=== PATIENT | female | born 1975 | race African-American/Black ===

== ENCOUNTER 2018-06-04 13:12 | Emergency (ER) | payer OTHER ==
--- NOTE | 2018-06-04 14:08 | ER ---
Nurse's Notes [facility] Name: Tianna Costello Age: 43 yrs Sex: Female : 1975 Arrival Date: 06/04/2018 Time: 13:14 Bed 20 Private MD: Diagnosis: Acute upper respiratory infection, unspecified Presentation: 06/04 13:16 Presenting complaint: Patient states: I have been having chills, scratchy throat, and la1 dry lips for the last few days. Transition of care: patient was not received from another setting of care. Onset of symptoms was June 04, 2018. Risk Assessment: Do you want to hurt yourself or someone else? Patient reports no desire to harm self or others. Initial Sepsis Screen: Does the patient meet any 2 criteria? No. Patient's initial sepsis screen is negative. Does the patient have a suspected source of infection? No. Patient's initial sepsis screen is negative. Care prior to arrival: None. 13:16 Method Of Arrival: Ambulatory la1 13:16 Acuity: DAVID 4 la1 Triage Assessment: 14:00 General: Appears in no apparent distress. comfortable, Behavior is calm, cooperative, bp appropriate for age. Historical: - Allergies: 13:17 PENICILLINS; la1 - Home Meds: 13:21 alprazolam 0.25 mg Oral tab [Active]; tw2 - PMHx: 13:17 Anxiety; Asthma; la1 - PSHx: 13:21 None; tw2 - Immunization history:: Adult Immunizations up to date. - Social history:: Smoking status: Patient/guardian denies using tobacco. - Ebola Screening: : No symptoms or risks identified at this time. Screenin:19 Abuse screen: Denies threats or abuse. Nutritional screening: No deficits noted. tw2 Tuberculosis screening: No symptoms or risk factors identified. Fall Risk None identified. Assessment: 13:19 General: Appears in no apparent distress. Behavior is calm, cooperative, appropriate tw2 for age. Pain: Complains of pain in "scratchy throat". Neuro: Level of Consciousness is awake, alert, obeys commands, Oriented to person, place, time, situation. Cardiovascular: Denies chest pain, shortness of breath, Patient's skin is warm and dry. Cardiovascular:. Respiratory: Airway is patent Respiratory effort is even, unlabored, Respiratory pattern is regular, symmetrical. GI: No signs and/or symptoms were reported involving the gastrointestinal system. : No signs and/or symptoms were reported regarding the genitourinary system. EENT: Reports pain in throat. Derm: No signs and/or symptoms reported regarding the dermatologic system. Musculoskeletal: Range of motion: intact in all extremities. 13:21 Reassessment: provider NERY Chatterjee at bedside at this time. tw2 14:13 Reassessment: PT D/C BUT LEFT WITHOUT PAPERS. bp Vital Signs: 13:17 BP 112 / 89; Pulse 78; Resp 18; Temp 98.3(O); Pulse Ox 98% on R/A; Weight 78.02 kg; la1 Height 5 ft. 6 in. (167.64 cm); 13:17 Body Mass Index 27.76 (78.02 kg, 167.64 cm) la1 ED Course: 13:14 Patient arrived in ED. as 13:16 Triage completed. la1 13:17 Arm band placed on right wrist. la1 13:19 Bed in low position. Call light in reach. tw2 13:20 [facility] kb 13:20 Francisco J Suarez MD is Attending Physician. kb 13:37 Strep Sent. tw2 13:37 Flu Sent. tw2 14:00 Owen Underwood, RN is Primary Nurse. bp 14:14 No provider procedures requiring assistance completed. Patient did not have IV access bp during this emergency room visit. Administered Medications: No medications were administered Outcome: 14:08 Discharge ordered by . kb 14:14 Discharged to home ambulatory. bp 14:14 Condition: stable 14:15 Patient left the ED. bp Signatures: Lenore Mora FNP-C FNP-Lupis Coyne Lee RN RN la1 Esha Crisostomo RN RN tw2 Owen Underwood RN RN bp
--- NOTE | 2018-06-04 14:08 | EDPHYS ---
Physician Documentation [facility] Name: Tianna Costello Age: 43 yrs Sex: Female : 1975 Arrival Date: 06/04/2018 Time: 13:14 Bed 20 Private MD: ED Physician Francisco J Suarez HPI: 06/04 14:05 This 43 yrs old Black Female presents to ER via Ambulatory with complaints of Fever. kb 14:05 The patient or guardian reports flu symptoms. Onset: The symptoms/episode kb began/occurred 3 day(s) ago. Severity of symptoms: At their worst the symptoms were mild, in the emergency department the symptoms are unchanged. Modifying factors: The symptoms are alleviated by nothing, the symptoms are aggravated by nothing. Associated signs and symptoms: Pertinent positives: rhinorrhea, sore throat, chills, cracked lips. The patient has not experienced similar symptoms in the past. The patient has not recently seen a physician. Historical: - Allergies: 13:17 PENICILLINS; la1 - Home Meds: 13:21 alprazolam 0.25 mg Oral tab [Active]; tw2 - PMHx: 13:17 Anxiety; Asthma; la1 - PSHx: 13:21 None; tw2 - Immunization history:: Adult Immunizations up to date. - Social history:: Smoking status: Patient/guardian denies using tobacco. - Ebola Screening: : No symptoms or risks identified at this time. ROS: 14:04 ENT: Negative for injury, pain, and discharge, Neck: Negative for injury, pain, and kb swelling, Cardiovascular: Negative for chest pain, palpitations, and edema, Abdomen/GI: Negative for abdominal pain, nausea, vomiting, diarrhea, and constipation, Back: Negative for injury and pain, : Negative for injury, bleeding, discharge, and swelling, MS/Extremity: Negative for injury and deformity, Skin: Negative for injury, rash, and discoloration, Neuro: Negative for headache, weakness, numbness, tingling, and seizure. 14:04 Constitutional: Positive for chills, Negative for body aches, fatigue, malaise, poor PO intake, weight loss. 14:04 Respiratory: Positive for cough, Negative for dyspnea on exertion, hemoptysis, orthopnea, pleurisy, shortness of breath, sputum production, wheezing. Exam: 14:04 Constitutional: This is a well developed, well nourished patient who is awake, alert, kb and in no acute distress. Head/Face: Normocephalic, atraumatic. ENT: Nares patent. No nasal discharge, no septal abnormalities noted. Tympanic membranes are normal and external auditory canals are clear. Oropharynx with no redness, swelling, or masses, exudates, or evidence of obstruction, uvula midline. Mucous membranes moist. Neck: Trachea midline, no thyromegaly or masses palpated, and no cervical lymphadenopathy. Supple, full range of motion without nuchal rigidity, or vertebral point tenderness. No Meningismus. Chest/axilla: Normal chest wall appearance and motion. Nontender with no deformity. No lesions are appreciated. Cardiovascular: Regular rate and rhythm with a normal S1 and S2. No gallops, murmurs, or rubs. Normal PMI, no JVD. No pulse deficits. Respiratory: Lungs have equal breath sounds bilaterally, clear to auscultation and percussion. No rales, rhonchi or wheezes noted. No increased work of breathing, no retractions or nasal flaring. Abdomen/GI: Soft, non-tender, with normal bowel sounds. No distension or tympany. No guarding or rebound. No evidence of tenderness throughout. Skin: Warm, dry with normal turgor. Normal color with no rashes, no lesions, and no evidence of cellulitis. MS/ Extremity: Pulses equal, no cyanosis. Neurovascular intact. Full, normal range of motion. Neuro: Awake and alert, GCS 15, oriented to person, place, time, and situation. Cranial nerves II-XII grossly intact. Motor strength 5/5 in all extremities. Sensory grossly intact. Cerebellar exam normal. Normal gait. Vital Signs: 13:17 BP 112 / 89; Pulse 78; Resp 18; Temp 98.3(O); Pulse Ox 98% on R/A; Weight 78.02 kg; la1 Height 5 ft. 6 in. (167.64 cm); 13:17 Body Mass Index 27.76 (78.02 kg, 167.64 cm) la1 MDM: 13:20 Patient medically screened. kb 14:03 Data reviewed: vital signs, nurses notes. Data interpreted: Pulse oximetry: on room air kb is 98 %. Interpretation: normal. 14:06 ED course: Pt reports she needs to leave to pickup her grandkids. States "Can I just kb call for my results?" Educated that she can get her results from medical records tomorrow, but we are unable to give her results over the phone. . 06/04 13:23 Order name: Flu; Complete Time: 14:07 kb 06/04 13:23 Order name: Strep; Complete Time: 14:07 kb 06/04 14:07 Order name: Throat Culture EDMS Administered Medications: No medications were administered Disposition: 18:42 Co-signature as Attending Physician, Francisco J Suarez MD available for consultation at ps1 all times. Disposition: 06/04/18 14:08 Discharged to Home. Impression: Acute upper respiratory infection, unspecified. - Condition is Stable. - Discharge Instructions: Upper Respiratory Infection, Adult, [id number], Viral Respiratory Infection, [id number]. - Medication Reconciliation Form, Thank You Letter, Antibiotic Education, Prescription Opioid Use, Work release form form. - Follow up: Emergency Department; When: As needed; Reason: Worsening of condition. Follow up: Private Physician; When: 2 - 3 days; Reason: Recheck today's complaints, Continuance of care, Re-evaluation by your physician. Signatures: Dispatcher [employer] EDMS Lenore Mora, NERY-C UNATTENDED GROUND SENSOR SPECIALIST-Todd Gandhi, RN RN la1 Esha Crisostomo, RN RN tw2 Owen Underwood, RN RN Francisco J Titus MD MD ps1 Corrections: (The following items were deleted from the chart) 14:06 14:04 Constitutional: Positive for chills, fever, Negative for body aches, fatigue, kb malaise, poor PO intake, weight loss, kb 14:15 14:08 06/04/2018 14:08 Discharged to Home. Impression: Acute upper respiratory bp infection, unspecified. Condition is Stable. Forms are Work release form, Medication Reconciliation Form, Thank You Letter, Antibiotic Education, Prescription Opioid Use. Follow up: Emergency Department; When: As needed; Reason: Worsening of condition. Follow up: Private Physician; When: 2 - 3 days; Reason: Recheck today's complaints, Continuance of care, Re-evaluation by your physician. kb
== END 2018-06-04 14:15 | disposition home or self-care (01) ==
LOC: ER 13:12
DX: J06.9 Acute upper respiratory infection, unspecified (principal); F41.9 Anxiety disorder, unspecified; Z88.0 Allergy status to penicillin
CPT/HCPCS: 87070; 87081; 87804; 99282

== ENCOUNTER 2018-10-12 19:06 | Emergency (ER) | payer OTHER ==
--- OUTSIDE RECORDS SUMMARY | 2018-10-12 19:09 | XMS REPORT ---
:1975 [facility] Address [address] [place] [address] [address] [place] [address] Care Team Providers Name Role Phone Unavailable Unavailable Unavailable Problems This patient has no known problems. Allergies, Adverse Reactions, Alerts This patient has no known allergies or adverse reactions. Medications This patient has no known medications.
[2018-10-12] MEDS ORDERED: ALBUTEROL 2.5 MG/3 ML NEB SOL ONE (20:15)
[2018-10-12] MEDS ORDERED: IPRATROPIUM BROM 0.5MG/2.5ML ONE (20:16)
[2018-10-12] MEDS ORDERED: predniSONE 20 MG TAB ONE (20:16)
--- NOTE | 2018-10-12 20:39 | RAD REPORT ---
EXAM DESCRIPTION: Cleo Palacios (2 Views)10/12/2018 8:00 pm CLINICAL HISTORY: Cough COMPARISON: 2017 FINDINGS: The lungs appear clear of acute infiltrate. The heart is normal size IMPRESSION: No acute abnormalities displayed
[2018-10-12 21:00] LABS: Urine Blood NEGATIVE (NEG); Urine Glucose NEGATIVE (NEG); Urine Protein TRACE (NEG)
--- NOTE | 2018-10-12 21:04 | EDPHYS ---
Physician Documentation [facility] Name: Tianna Costello Age: 43 yrs Sex: Female : 1975 Arrival Date: 10/12/2018 Time: 19:09 Bed 5 Private MD: ED Physician Cory Park HPI: 10/12 19:35 This 43 yrs old Black Female presents to ER via Ambulatory with complaints of Flu cp Symptoms. 19:35 The patient or guardian reports cough, that is intermittent, with productive sputum, cp that is yellow. 19:35 Onset: The symptoms/episode began/occurred 1 week(s) ago. Associated signs and cp symptoms: Pertinent positives: sore throat, Pertinent negatives: fever, vomiting. Severity of symptoms: in the emergency department the symptoms are unchanged despite home interventions. Patient reports she was seen 1 [facility] ago [facility] and diagnosed with influenza. Patient reports she was treated with tamiflu. 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 - Social history:: Smoking status: Patient uses tobacco products, smokes one-half pack cigarettes per day, Patient/guardian denies using alcohol, street drugs. - Ebola Screening: : Patient negative for fever greater than or equal to 101.5 degrees Fahrenheit, and additional compatible Ebola Virus Disease symptoms Patient denies exposure to infectious person Patient denies travel to an Ebola-affected area in the 21 days before illness onset. ROS: 19:40 Constitutional: Negative for body aches, chills, fever, poor PO intake. cp 19:40 Eyes: Negative for injury, pain, redness, and discharge. cp 19:40 Respiratory: Positive for cough, wheezing. cp 19:40 ENT: Positive for sore throat, Negative for drainage from ear(s), ear pain, difficulty cp swallowing, difficulty handling secretions. 19:40 Cardiovascular: Negative for chest pain, edema. 19:40 Abdomen/GI: Negative for vomiting, diarrhea, constipation. 19:40 Skin: Negative for cellulitis, rash. 19:40 Neuro: Negative for dizziness, headache, weakness. 19:40 All other systems are negative. Exam: 19:45 Constitutional: The patient appears in no acute distress, alert, awake, non-toxic, well cp developed, well nourished. 19:45 Head/Face: Normocephalic, atraumatic. cp 19:45 Eyes: Periorbital structures: appear normal, Conjunctiva: normal, no exudate, no injection, Sclera: no appreciated abnormality, Lids and lashes: appear normal, bilaterally. 19:45 ENT: External ear(s): are unremarkable, Ear canal(s): are normal, clear, TM's: dullness, bilaterally, Nose: is normal, Mouth: Lips: moist, Oral mucosa: pink and intact, moist, Posterior pharynx: is normal, airway is patent, no erythema, no exudate. 19:45 Neck: ROM/movement: is normal, is supple, without pain, no range of motions limitations, no meningismus, no nuchal rigidity, Lymph nodes: no appreciated lymphadenopathy. 19:45 Chest/axilla: Inspection: normal, Palpation: is normal, no crepitus, no tenderness. 19:45 Cardiovascular: Rate: normal, Rhythm: regular. 19:45 Respiratory: the patient does not display signs of respiratory distress, Respirations: normal, no use of accessory muscles, no retractions, no splinting, no tachypnea, labored breathing, is not present, Breath sounds: decreased breath sounds, are not appreciated, + upper airway congestion. wheezing: is not appreciated. 19:45 Abdomen/GI: Exam negative for discomfort, distension, guarding, Inspection: abdomen appears normal. 19:45 Skin: cellulitis, is not appreciated, no rash present. Vital Signs: 19:23 BP 112 / 76; Pulse 76; Resp 17; Temp 99.3(O); Pulse Ox 97% on R/A; Weight 89.36 kg; tl1 Height 5 ft. 6 in. (167.64 cm); Pain 8/10; 20:48 Pulse 80; Resp 17 S; Pulse Ox 100% on R/A; jd3 20:51 Pulse 98; Resp 14; Temp 98.4(T); Pulse Ox 100% on R/A; jd3 20:54 BP 114 / 73; ag4 19:23 Body Mass Index 31.80 (89.36 kg, 167.64 cm) tl1 MDM: 19:27 Patient medically screened. cp 21:02 Data reviewed: vital signs, nurses notes, lab test result(s), radiologic studies, plain cp films. 21:02 Differential diagnosis: bronchitis, flu, pneumonia, strep throat. Test interpretation: cp by ED physician or midlevel provider: plain radiologic studies. Response to treatment: the patient's symptoms have mildly improved after treatment, and as a result, I will discharge patient. 10/12 19:35 Order name: Strep; Complete Time: 20:21 cp 10/12 20:22 Interpretation: Reviewed. 10/12 20:04 Order name: Urine Dipstick--Ancillary (enter results) [facility] 10/12 19:35 Order name: Chest Pa And Lat (2 Views) XRAY; Complete Time: 20:40 cp 10/12 20:15 Order name: Urine --Ancillary (enter results) [facility] 10/12 20:19 Order name: Throat Culture [facility] 10/12 19:35 Order name: Urine Dipstick-Ancillary (obtain specimen); Complete Time: 20:02 cp 10/12 19:35 Order name: Urine Test (obtain specimen); Complete Time: 20:02 cp Administered Medications: 20:09 Drug: Albuterol - atroVENT (3:1) (2.5 mg - 0.5 mg) 3 ml Route: Nebulizer; jd3 20:10 Drug: predniSONE 40 mg Route: PO; jd3 20:10 Not Given (Other Intervention Used): predniSONE 10 mg PO once; if test jd3 negative Disposition: 10/12/18 21:04 Discharged to Home. Impression: Unspecified asthma with (acute) exacerbation, Acute upper respiratory infection, unspecified. - Condition is Stable. - Discharge Instructions: Asthma, Adult, Upper Respiratory Infection, Adult. - Prescriptions for prednisone 50 mg Oral tablet - take 1 tablet by ORAL route once daily for 5 days start morning of 10-13-2018; 5 tablet. Zithromax Z- Blayne 250 mg Oral Tablet - take 1 tablet by ORAL route as directed for 5 days Day 1 - take two (2) tablets one time. Day 2, 3, 4 , 5 take one (1) tablet once daily.; 6 tablet. Albuterol Sulfate 90 mcg/actuation - inhale 1-2 puff by INHALATION route every 4-6 hours; 1 Inhaler. Guaifenesin AC 10- 100 mg/5 mL Oral Liquid - take 10 milliliters by ORAL route every 6 hours As needed; 180 milliliter. - Medication Reconciliation Form, Thank You Letter, Antibiotic Education, Prescription Opioid Use form. - Follow up: Private Physician; When: 1 - 2 days; Reason: Recheck today's complaints. - Problem is new. - Symptoms have improved. Addendum: 10/14/2018 07:31 Co-signature as Attending Physician, Cory Park MD. m a2 Signatures: Dispatcher [employer] EDMeg Glover RN RN tl1 Robert Serrato PA PA cp Davies, Jonathon, RN RN jd3 Cory Park MD MD ma2 Corrections: (The following items were deleted from the chart) 10/12 21:35 21:04 10/12/2018 21:04 Discharged to Home. Impression: Unspecified asthma with (acute) jd3 exacerbation; Acute upper respiratory infection, unspecified. Condition is Stable. Forms are Medication Reconciliation Form, Thank You Letter, Antibiotic Education, Prescription Opioid Use. Follow up: Private Physician; When: 1 - 2 days; Reason: Recheck today's complaints. Problem is new. Symptoms have improved. cp
--- NOTE | 2018-10-12 21:04 | ER ---
Nurse's Notes [facility] Name: Tianna Costello Age: 43 yrs Sex: Female : 1975 Arrival Date: 10/12/2018 Time: 19:09 Bed 5 Private MD: Diagnosis: Unspecified asthma with (acute) exacerbation;Acute upper respiratory infection, unspecified Presentation: 10/12 19:18 Presenting complaint: Patient states: I have had cough and congestion for about 1 week. tl1 I went to [facility] about 1 week ago and they gave me tamiflu and I am still not better. Transition of care: patient was not received from another setting of care. Onset of symptoms was October 07, 2018. Risk Assessment: Do you want to hurt yourself or someone else? Patient reports no desire to harm self or others. Initial Sepsis Screen: Does the patient meet any 2 criteria? No. Patient's initial sepsis screen is negative. Does the patient have a suspected source of infection? No. Patient's initial sepsis screen is negative. Care prior to arrival: None. 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 - Social history:: Smoking status: Patient uses tobacco products, smokes one-half pack cigarettes per day, Patient/guardian denies using alcohol, street drugs. - Ebola Screening: : Patient negative for fever greater than or equal to 101.5 degrees Fahrenheit, and additional compatible Ebola Virus Disease symptoms Patient denies exposure to infectious person Patient denies travel to an Ebola-affected area in the 21 days before illness onset. Screenin:30 Abuse screen: Denies threats or abuse. Nutritional screening: No deficits noted. jd3 Tuberculosis screening: No symptoms or risk factors identified. Fall Risk No IV (0 pts). Ambulatory Aid- None/Bed Rest/Nurse Assist (0 pts). Gait- Normal/Bed Rest/Wheelchair (0 pts) Mental Status- Oriented to own ability (0 pts). Total Parnell Fall Scale indicates No Risk (0-24 pts). Assessment: 20:00 General: Appears in no apparent distress. uncomfortable, Behavior is calm, cooperative, jd3 appropriate for age. Pain: Denies pain. Neuro: Level of Consciousness is awake, alert, obeys commands, Oriented to person, place, time, situation. Cardiovascular: Heart tones S1 S2 present Capillary refill < 3 seconds Patient's skin is warm and dry. Respiratory: Reports cough that is productive, Airway is patent Respiratory effort is even, unlabored, Respiratory pattern is regular, symmetrical, Breath sounds with wheezes bilaterally. GI: No signs and/or symptoms were reported involving the gastrointestinal system. : No signs and/or symptoms were reported regarding the genitourinary system. EENT: No signs and/or symptoms were reported regarding the EENT system. Derm: Skin is intact, Skin is dry, Skin is normal, Skin temperature is warm. Musculoskeletal: Circulation, motion, and sensation intact. Range of motion: intact in all extremities. 20:52 Reassessment: Patient appears in no apparent distress at this time. Patient and/or jd3 family updated on plan of care and expected duration. Pain level reassessed. Patient is alert, oriented x 3, equal unlabored respirations, skin warm/dry/pink. 21:30 Reassessment: Patient appears in no apparent distress at this time. Patient and/or jd3 family updated on plan of care and expected duration. Pain level reassessed. Patient is alert, oriented x 3, equal unlabored respirations, skin warm/dry/pink. Vital Signs: 19:23 BP 112 / 76; Pulse 76; Resp 17; Temp 99.3(O); Pulse Ox 97% on R/A; Weight 89.36 kg; tl1 Height 5 ft. 6 in. (167.64 cm); Pain 8/10; 20:48 Pulse 80; Resp 17 S; Pulse Ox 100% on R/A; jd3 20:51 Pulse 98; Resp 14; Temp 98.4(T); Pulse Ox 100% on R/A; jd3 20:54 BP 114 / 73; ag4 19:23 Body Mass Index 31.80 (89.36 kg, 167.64 cm) tl1 ED Course: 19:09 Patient arrived in ED. am2 19:22 Triage completed. tl1 19:24 Arm band placed on right wrist. tl1 19:27 Robert Serrato PA is PHCP. cp 19:27 Cory Park MD is Attending Physician. cp 19:43 Strep swab sent to lab. jp3 19:44 Strep Sent. jp3 19:50 Urine collected: clean catch specimen, clear, lina colored, Amount Voided: 120mL. jp3 19:57 X-ray completed. Patient tolerated procedure well. kw 19:58 Chest Pa And Lat (2 Views) XRAY In Process Unspecified. EDMS 20:02 Chance Ramirez, RN is Primary Nurse. jd3 20:02 Strep Sent. jp3 21:30 Patient has correct armband on for positive identification. Placed in gown. Bed in low jd3 position. Call light in reach. Side rails up X 1. 21:30 No provider procedures requiring assistance completed. Patient did not have IV access jd3 during this emergency room visit. Administered Medications: 20:09 Drug: Albuterol - atroVENT (3:1) (2.5 mg - 0.5 mg) 3 ml Route: Nebulizer; jd3 20:10 Drug: predniSONE 40 mg Route: PO; jd3 20:10 Not Given (Other Intervention Used): predniSONE 10 mg PO once; if test jd3 negative Outcome: 21:04 Discharge ordered by . cp 21:30 Discharged to home ambulatory. jd3 21:30 Condition: stable 21:30 Discharge instructions given to patient, Instructed on discharge instructions, follow up and referral plans. medication usage, Demonstrated understanding of instructions, follow-up care, medications, Prescriptions given X 4. 21:35 Patient left the ED. jd3 Signatures: Dispatcher [employer] EDMS Marta Santillan kw Meg Johnson RN RN tl1 Robert Serrato PA PA cp Kathy Goldberg am2 Chance Ramirez, MARIANA RN jd3 Davi Sharpe jp3 Dillon Lu ag4 Corrections: (The following items were deleted from the chart) 20:58 20:51 BP 117 / 101; Pulse 98bpm; Resp 14bpm; Pulse Ox 100% RA; Temp 98.4F Tympanic; ag4 jd3 20:58 20:48 Pulse 79bpm; Resp 17bpm; Spontaneous; Pulse Ox 100% RA; jd3 jd3 21:48 21:30 Discharge instructions given to patient, Instructed on discharge instructions, jd3 follow up and referral plans. Demonstrated understanding of instructions, follow-up care, jd3
== END 2018-10-12 21:35 | disposition home or self-care (01) ==
LOC: ER 19:06
DX: J06.9 Acute upper respiratory infection, unspecified (principal); J45.901 Unspecified asthma with (acute) exacerbation; F17.210 Nicotine dependence, cigarettes, uncomplicated; F41.9 Anxiety disorder, unspecified; Z88.0 Allergy status to penicillin
CPT/HCPCS: 71046; 81003; 81025; 87070; 87081; 94640; 99284; J7512

== ENCOUNTER 2018-10-23 09:10 | Emergency (ER) | payer OTHER ==
--- OUTSIDE RECORDS SUMMARY | 2018-10-23 09:36 | XMS REPORT ---
:1975 [facility] [place] [address] Care Team Providers Name Role Phone Unavailable Unavailable Unavailable Problems This patient has no known problems. Allergies, Adverse Reactions, Alerts This patient has no known allergies or adverse reactions. Medications This patient has no known medications.
[2018-10-23] MEDS ORDERED: IPRATROPIUM BROM 0.5MG/2.5ML ONE (10:08)
[2018-10-23] MEDS ORDERED: ALBUTEROL 2.5 MG/3 ML NEB SOL ONE (10:08)
[2018-10-23 10:26] LABS: Absolute Monocytes 0.6 K/uL (0.1-1.3); Absolute Neutrophil 10.9 K/uL (1.8-8.0); Basophils % 0.6 % (0-1.3); Eosinophils % 0.8 % (0-4.4); Hematocrit 35.4 % (36.0-45.0); Lymphocytes % 14.7 % (15.3-44.8); MPV 7.6 fL (7.6-11.3); Monocytes % 4.6 % (3.3-12.3); RBC Red Blood Cell Count 4.13 M/uL (3.86-4.86)
--- NOTE | 2018-10-23 10:48 | RAD REPORT ---
EXAM DESCRIPTION: US - Extrem Venous W Compress Juan David - 10/23/2018 10:37 am CLINICAL HISTORY: Leg pain and swelling COMPARISON: None. TECHNIQUE: Real-time sonographic evaluation of the bilateral lower extremity common femoral, superfi cial femoral, popliteal and posterior tibial veins was performed. FINDINGS: Normal compressibility, flow augmentation, phasic flow and spontaneous flow are identified in the left and right lower extremity common femoral, superficial femoral, popliteal and posterior t ibial veins. No intraluminal filling defects seen. IMPRESSION: No DVT in either lower extremity.
--- NOTE | 2018-10-23 10:57 | RAD REPORT ---
EXAM DESCRIPTION: RAD - Chest Single View - 10/23/2018 10:45 am CLINICAL HISTORY: Cough COMPARISON: October 12, 2018 TECHNIQUE: AP portable chest image was obtained 1043 hours . FINDINGS: Lungs are clear. Heart and vasculature are normal. No measurable pleural effusion and no p neumothorax. No acute bony abnormality seen. No acute aortic findings suspected. IMPRESSION: No acute cardiopulmonary process. No significant interval change.
[2018-10-23] MEDS ORDERED: BENZONATATE 100 MG CAP PO ONE (11:18)
[2018-10-23 11:22] LABS: Protime INR 0.99
[2018-10-23 11:43] LABS: ALT/SGPT 22 U/L (12-78); AST/SGOT 11 U/L (15-37); Albumin 3.1 g/dL (3.4-5.0); Alkaline Phosphatase 107 U/L (45-117); BUN Blood Urea Nitrogen 9 mg/dL (7-18); Bicarbonate 29 mmol/L (21-32); Bilirubin Direct < 0.1 mg/dL (0-0.2); Bilirubin Total 0.2 mg/dL (0.2-1.0); Glucose Level 99 mg/dL (74-106); Magnesium 2.3 mg/dL (1.8-2.4); NT PRO-BNP 38 pg/mL (<125); Potassium 3.7 mmol/L (3.5-5.1); Protein, Total 7.9 g/dL (6.4-8.2); Sodium Level 141 mmol/L (136-145); Troponin (Emerg Dept Use Only) < 0.02 ng/mL (0.0-0.045)
--- NOTE | 2018-10-23 11:53 | EDPHYS ---
Physician Documentation [facility] Name: Tianna Costello Age: 43 yrs Sex: Female : 1975 Arrival Date: 10/23/2018 Time: : Bed 5 Private MD: ED Physician Robert Anderson HPI: 10/23 10:00 This 43 yrs old Black Female presents to ER via Ambulatory with complaints of Feet cp Swelling, High Blood Pressure. 10:00 The patient has elevated blood pressure and discovered this at home. Onset: The cp symptoms/episode began/occurred 3 day(s) ago. Associated signs and symptoms: Pertinent positives: pain and swelling of feet and lower legs, Pertinent negatives: chest pain, dizziness, lightheadedness, vomiting, weakness. Severity of symptoms: At its worst the blood pressure was 180 mm Hg. Historical: - Allergies: : PENICILLINS; sv - PMHx: :29 Anxiety; Asthma; sv - PSHx: :29 ; sv - Immunization history:: Adult Immunizations up to date, Flu vaccine is up to date. - Social history:: Smoking status: Patient uses tobacco products, denies chronic smoking, but will smoke occasionally, Patient uses alcohol, occasionally. - Ebola Screening: : No symptoms or risks identified at this time. ROS: 10:05 Constitutional: Negative for body aches, chills, fever, poor PO intake. cp 10:05 Eyes: Negative for injury, pain, redness, and discharge. cp 10:05 ENT: Negative for drainage from ear(s), ear pain, sore throat, difficulty swallowing, difficulty handling secretions. 10:05 Cardiovascular: Negative for chest pain, palpitations. 10:05 Respiratory: Negative for cough, shortness of breath, wheezing. 10:05 Abdomen/GI: Negative for abdominal pain, nausea, vomiting, and diarrhea, black/tarry stool, rectal bleeding. 10:05 MS/extremity: Positive for pain, swelling, of the right foot and left foot and left leg and right leg, Negative for injury or acute deformity, decreased range of motion. 10:05 Neuro: Negative for altered mental status, headache, syncope, weakness. 10:05 All other systems are negative. Exam: 09:55 ECG was reviewed by the Attending Physician. cp 10:10 Constitutional: The patient appears in no acute distress, alert, awake, cp non-diaphoretic, non-toxic, well developed, well nourished. 10:10 Head/Face: Normocephalic, atraumatic. Eyes: Pupils equal round and reactive to light, cp extra-ocular motions intact. Lids and lashes normal. Conjunctiva and sclera are non-icteric and not injected. Cornea within normal limits. Periorbital areas with no swelling, redness, or edema. ENT: Nares patent. No nasal discharge, no septal abnormalities noted. Tympanic membranes are normal and external auditory canals are clear. Oropharynx with no redness, swelling, or masses, exudates, or evidence of obstruction, uvula midline. Mucous membranes moist. Chest/axilla: Normal chest wall appearance and motion. Nontender with no deformity. No lesions are appreciated. 10:10 Cardiovascular: Rate: normal, Rhythm: regular, JVD: is not appreciated. 10:10 Respiratory: the patient does not display signs of respiratory distress, Respirations: normal, no use of accessory muscles, no retractions, no splinting, no tachypnea, labored breathing, is not present, Breath sounds: are clear throughout, no decreased breath sounds, no stridor, no wheezing. 10:10 Abdomen/GI: Inspection: abdomen appears normal, Palpation: abdomen is soft and non-tender, in all quadrants. 10:10 Skin: cellulitis, is not appreciated, no rash present. 10:10 Neuro: Orientation: to person, place \T\ time. Mentation: is normal, Cerebellar function: is grossly normal, Motor: moves all fours, strength is normal, Sensation: is normal. Vital Signs: 09:29 BP 143 / 104; Pulse 91; Resp 16; Temp 97.8(O); Pulse Ox 100% ; Weight 89.36 kg; Height sv 5 ft. 6 in. (167.64 cm); Pain 10/10; 11:04 BP 117 / 86; Pulse 82; Resp 20; Pulse Ox 100% ; sv 12:13 BP 120 / 80; Pulse 80; Resp 18; Pulse Ox 99% ; sv 09:29 Body Mass Index 31.80 (89.36 kg, 167.64 cm) sv MDM: 09:40 Patient medically screened. cp 11:50 Data reviewed: vital signs, nurses notes, lab test result(s), EKG, radiologic studies, cp plain films, ultrasound, and as a result, I will discharge patient. 11:50 Test interpretation: by ED physician or midlevel provider: ECG, plain radiologic cp studies. Counseling: I had a detailed discussion with the patient and/or guardian regarding: the historical points, exam findings, and any diagnostic results supporting the discharge/admit diagnosis, the presence of at least one elevated blood pressure reading (>120/80) during this emergency department visit, lab results, radiology results, the need for outpatient follow up, a family practitioner, to return to the emergency department if symptoms worsen or persist or if there are any questions or concerns that arise at home. 10/23 09:53 Order name: Basic Metabolic Panel; Complete Time: 11:46 cp 10/23 11:47 Interpretation: Normal except: GFR 59. cp 10/23 09:53 Order name: CBC with Diff; Complete Time: 10:46 cp 10/23 10:46 Interpretation: Normal except: WBC 13.7; HGB 11.6; HCT 35.4; MCV 85.7; EVGENY% 79.3; LYM% cp 14.7; NEUT A 10.9. 10/23 09:53 Order name: LFT's; Complete Time: 11:46 cp 10/23 11:47 Interpretation: Normal except: AST 11; ALB 3.1; GLOB 4.8; A/G 0.6. cp 10/23 09:53 Order name: Magnesium; Complete Time: 11:46 cp 10/23 09:53 Order name: NT PRO-BNP; Complete Time: 11:46 cp 10/23 09:53 Order name: PT-INR; Complete Time: 11:46 cp 10/23 09:53 Order name: Troponin (emerg Dept Use Only); Complete Time: 11:46 cp 10/23 09:53 Order name: XRAY Chest (1 view); Complete Time: 11:01 cp 10/23 09:53 Order name: EKG; Complete Time: 09:54 cp 10/23 09:53 Order name: Cardiac monitoring; Complete Time: 09:54 cp 10/23 09:54 Order name: US Extremity Venous W Compression Juan David; Complete Time: 11:01 cp 10/23 09:53 Order name: EKG - Nurse/Tech; Complete Time: 09:54 cp 10/23 09:53 Order name: IV Saline Lock; Complete Time: 10:25 cp 10/23 09:53 Order name: Labs collected and sent; Complete Time: 10:25 cp 10/23 09:53 Order name: O2 Per Protocol; Complete Time: :54 cp 10/23 09:53 Order name: O2 Sat Monitoring; Complete Time: 09:54 cp 10/23 11:04 Order name: Labs - recollect needed; Complete Time: 11:17 bd EC:55 Rate is 80 beats/min. Rhythm is regular. OK interval is normal. QRS interval is normal. cp QT interval is normal. Interpreted by me. Reviewed by me. Administered Medications: 10:00 Drug: Albuterol 2.5 mg Route: Inhalation; sv 10:00 Drug: AtroVENT Aerosol 0.5 mg Route: Inhalation; sv 11:17 Drug: Tessalon Perle 200 mg Route: PO; sv 11:30 Follow up: Response: No adverse reaction sv Disposition: 15:04 Co-signature as Attending Physician, Robert Anderson MD I agree with the assessment and [facility] plan of care. Disposition: 10/23/18 11:52 Discharged to Home. Impression: Elevated blood-pressure reading, without diagnosis of hypertension, Edema, unspecified, Pain in unspecified foot - Bilateral. - Condition is Stable. - Discharge Instructions: Edema, How to Take Your Blood Pressure, [id number], DASH Eating Plan, Form - Blood Pressure Record Sheet, Foot Pain. - Medication Reconciliation Form, Thank You Letter, Antibiotic Education, Prescription Opioid Use form. - Follow up: Private Physician; When: as scheduled; Reason: Recheck today's complaints. - Problem is new. - Symptoms have improved. Signatures: Dispatcher [employer] EDMS Katrina Bruce Stephanie, RN RN sv Anderson, Corey, MD MD cha Page, Corey, PA PA cp Corrections: (The following items were deleted from the chart) 11:54 11:52 10/23/2018 11:52 Discharged to Home. Impression: Elevated blood-pressure reading, cp without diagnosis of hypertension; Swelling and pain of feet. Condition is Stable. Forms are Medication Reconciliation Form, Thank You Letter, Antibiotic Education, Prescription Opioid Use. Follow up: Private Physician; When: as scheduled; Reason: Recheck today's complaints. Problem is new. Symptoms have improved. cp 12:14 11:54 10/23/2018 11:52 Discharged to Home. Impression: Elevated blood-pressure reading, sv without diagnosis of hypertension; Edema, unspecified; Pain in unspecified foot - Bilateral. Condition is Stable. Discharge Instructions: Edema, How to Take Your Blood Pressure, [id number], DASH Eating Plan, Form - Blood Pressure Record Sheet. Forms are Medication Reconciliation Form, Thank You Letter, Antibiotic Education, Prescription Opioid Use. Follow up: Private Physician; When: as scheduled; Reason: Recheck today's complaints. Problem is new. Symptoms have improved. cp
--- NOTE | 2018-10-23 11:53 | ER ---
Nurse's Notes [facility] Name: Tianna Costello Age: 43 yrs Sex: Female : 1975 Arrival Date: 10/23/2018 Time: 09:13 Bed 5 Private MD: Diagnosis: Elevated blood-pressure reading, without diagnosis of hypertension;Edema, unspecified;Pain in unspecified foot-Bilateral Presentation: 10/23 09:18 Presenting complaint: Patient states: HTN and BLE swelling and pain x 3 days. sv Transition of care: patient was not received from another setting of care. Onset of symptoms was October 20, 2018. Risk Assessment: Do you want to hurt yourself or someone else? Patient reports no desire to harm self or others. Initial Sepsis Screen: Does the patient meet any 2 criteria? No. Patient's initial sepsis screen is negative. Does the patient have a suspected source of infection? No. Patient's initial sepsis screen is negative. Care prior to arrival: None. 09:18 Method Of Arrival: Ambulatory sv 09:18 Acuity: DAVID 3 sv Triage Assessment: 09:30 General: Appears in no apparent distress. uncomfortable, well developed, Behavior is sv calm, cooperative, appropriate for age. Pain: Complains of pain in right leg and left leg Pain currently is 10 out of 10 on a pain scale. Neuro: Level of Consciousness is awake, alert, obeys commands, Oriented to person, place, time, situation, Moves all extremities. Full function Gait is steady, Speech is normal. Respiratory: Airway is patent Respiratory effort is even, unlabored, Respiratory pattern is regular, symmetrical, Breath sounds with wheezes bilaterally. Derm: Skin is pink, warm \T\ dry. 09:30 Cardiovascular: Heart tones S1 S2 present Capillary refill < 3 seconds is sluggish in sv bilateral fingers Patient's skin is warm and dry. Pulses are 3+ in right radial artery, right dorsalis pedis artery, left radial artery and left dorsalis pedis artery Edema is 1+ to left ankle, left foot, left toes, right ankle, right foot and right toes Rhythm is sinus rhythm. Historical: - Allergies: 09:29 PENICILLINS; sv - PMHx: :29 Anxiety; Asthma; sv - PSHx: :29 ; sv - Immunization history:: Adult Immunizations up to date, Flu vaccine is up to date. - Social history:: Smoking status: Patient uses tobacco products, denies chronic smoking, but will smoke occasionally, Patient uses alcohol, occasionally. - Ebola Screening: : No symptoms or risks identified at this time. Screenin:29 Abuse screen: Denies threats or abuse. Denies injuries from another. Nutritional sv screening: No deficits noted. Tuberculosis screening: No symptoms or risk factors identified. Fall Risk None identified. Assessment: 09:38 Reassessment: Non-slip socks given to pt, per request. sv 11:18 Reassessment: Patient appears in no apparent distress at this time. No changes from sv previously documented assessment. Patient and/or family updated on plan of care and expected duration. Pain level reassessed. Patient is alert, oriented x 3, equal unlabored respirations, skin warm/dry/pink. Pt given coffee per pt request, ok with Robert LANE. 12:14 Reassessment: Patient appears in no apparent distress at this time. No changes from sv previously documented assessment. Patient and/or family updated on plan of care and expected duration. Pain level reassessed. Patient is alert, oriented x 3, equal unlabored respirations, skin warm/dry/pink. Vital Signs: 09:29 BP 143 / 104; Pulse 91; Resp 16; Temp 97.8(O); Pulse Ox 100% ; Weight 89.36 kg; Height sv 5 ft. 6 in. (167.64 cm); Pain 10/10; 11:04 BP 117 / 86; Pulse 82; Resp 20; Pulse Ox 100% ; sv 12:13 BP 120 / 80; Pulse 80; Resp 18; Pulse Ox 99% ; sv 09:29 Body Mass Index 31.80 (89.36 kg, 167.64 cm) sv ED Course: 09:13 Patient arrived in ED. as 09:18 Arm band placed on Patient placed in an exam room, on a stretcher, on gambling monitor, sv on pulse oximetry. 09:27 Sienna Clark RN is Primary Nurse. sv 09:28 Triage completed. sv 09:29 Patient has correct armband on for positive identification. Placed in gown. Bed in low sv position. Call light in reach. gambling monitor on. Pulse ox on. NIBP on. Door closed. Warm blanket given. Head of bed elevated. 09:38 Awaiting ED provider evaluation. sv 09:40 Robert Serrato PA is PHCP. cp 09:40 Robert Anderson MD is Attending Physician. cp 09:48 EKG done, by heavy line technician. reviewed by Robert Anderson MD. at1 10:00 Missed attempt(s): 20 gauge in right antecubital area. Bleeding controlled, band aid sv applied, catheter tip intact. 10:05 Initial lab(s) drawn, by me, sent to lab. Inserted saline lock: 20 gauge in left sv antecubital area, using aseptic technique. Blood collected. Flushed left antecubital with 5 ml normal saline. 10:17 Note: PT BEING TRANSPORTED TO ULTRASOUND AT 1015 WHEN PORTABLE CXR WAS ATTEMPTED, WILL jb2 GET PT AFTER ULTRASOUND EXAM IS COMPLETE. 10:38 US Extremity Venous W Compression Juan David In Process Unspecified. EDMS 10:43 X-ray completed. Patient tolerated procedure well. Patient moved to radiology via sw wheelchair. Patient moved back from radiology. 10:44 XRAY Chest (1 view) In Process Unspecified. EDMS 11:05 Lab(s) recollected, by me, sent to lab. sv 12:14 No provider procedures requiring assistance completed. IV discontinued, intact, sv bleeding controlled, No redness/swelling at site. Pressure dressing applied. Administered Medications: 10:00 Drug: Albuterol 2.5 mg Route: Inhalation; sv 10:00 Drug: AtroVENT Aerosol 0.5 mg Route: Inhalation; sv 11:17 Drug: Tessalon Perle 200 mg Route: PO; sv 11:30 Follow up: Response: No adverse reaction sv Outcome: 11:52 Discharge ordered by MD. cp 12:14 Discharged to home ambulatory. sv 12:14 Condition: stable 12:14 Discharge instructions given to patient, Instructed on discharge instructions, follow up and referral plans. Demonstrated understanding of instructions, follow-up care. 12:14 Patient left the ED. sv Signatures: Dispatcher [employer] EDMS Sienna Clark RN RN Woody Mike2 Lupis Dela Cruz Amanda, drive man EKG Tat1 Ngoc Kessler Robert Serrato PA PA cp Corrections: (The following items were deleted from the chart) 09:36 09:29 BP 143 / 104; Pulse 91bpm; Resp 16bpm; Pulse Ox 100%; 89.36 kg; Height 5 ft. 6 sv in.; BMI: 31.8; Pain 10/10; sv 09:38 09:30 Respiratory: Airway is patent Respiratory effort is even, unlabored, Respiratory sv pattern is regular, symmetrical, sv 12:18 12:13 BP 80 / ???; Pulse 80bpm; Resp 18bpm; Pulse Ox 99%; sv sv
--- NOTE | 2018-10-24 10:36 | EKG ---
Test Date: 2018-10-23 Test Time: 09:41:21 Seconds Inspector: BRENNA MEASUREMENT RESULTS: Intervals: Rate: 80 RI: 158 QRSD: 84 QT: 368 QTc: 424 Burns: P: 53 RI: 158 QRS: 6 T: 29 INTERPRETIVE STATEMENTS: Normal sinus rhythm Normal ECG No previous ECG available for comparison Electronically Signed On 10-23-18 17:49:28 CDT by Zeferino Hampton
== END 2018-10-23 12:14 | disposition home or self-care (01) ==
LOC: ER 09:10
DX: R03.0 Elevated blood-pressure reading, without diagnosis of hypertension (principal); R60.9 Edema, unspecified; M79.672 Pain in left foot; M79.671 Pain in right foot; Z88.0 Allergy status to penicillin
CPT/HCPCS: 36415; 71045; 80048; 80076; 83735; 83880; 84484; 85025; 85610; 93005; 93970; 99285

== ENCOUNTER 2020-12-21 16:10 | Emergency (ER) | payer OTHER ==
--- OUTSIDE RECORDS SUMMARY | 2020-12-21 16:13 | XMS REPORT | Continuity of Care Document ---
:1975 Author Organization [facility] t Address [address] [place] [address] Care Team Providers Name Role Phone Kailash STODDARD, S Attending Clinician Problems This patient has no known problems. Allergies, Adverse Reactions, Alerts This patient has no known allergies or adverse reactions. Medications This patient has no known medications. Procedures This patient has no known procedures. Encounters Start End Encounter Admission Attending Care Care Encounter Source Date/Time Date/Time Type Type Clinicians Facility Department ID 2020-12-07 2020-12-07 Office CORDELL Linder [id number] 14:03:43 15:00:48 Visit [facility] [id number] [facility] [id number] Results This patient has no known results.
--- NOTE | 2020-12-21 17:32 | RAD REPORT ---
EXAM DESCRIPTION: CT - [id number] - 12/21/2020 5:07 pm CLINICAL HISTORY: left sided facial swelling, head trauma, headache, left-sided face and jaw pain COMPARISON: No comparisonsNo comparisons TECHNIQUE: Axial 5 mm thick images of the head were obtained. Axial 2 mm thick images of the cervic al spine were obtained with sagittal and coronal reconstruction images generated and reviewed. All CT scans are performed using dose optimization technique as appropriate and may include automated exposure control or mA/KV adjustment according to patient size. FINDINGS: No intracranial hemorrhage, mass, edema or acute intracranial finding. No suspicion for ac [place] infarction. No extra-axial fluid collections. Mastoid air cells are clear. Facial bones, orbits a nd sinuses are separately detailed. Cervical spine imaging acquired multiple acquisitions due to motion and significant tilt. Cervical renata dy height and alignment normal. No subluxation or fracture abnormality seen. Facet joint alignment is normal. The skullbase -C2 region shows alignment within normal range. No disk space narrowing. No pa thologic bone process. Central canal detail is inherently limited. No paraspinal mass or hematoma. Patient is edentulous. IMPRESSION: Negative CT head examination for acute or significant finding. Facial bones, orbits and sinuses are separately detailed. Negative CT cervical spine examination for acute or significant finding.
--- NOTE | 2020-12-21 17:40 | RAD REPORT ---
EXAM DESCRIPTION: CT - Facial Bones W/ Mpr - 12/21/2020 5:07 pm CLINICAL HISTORY: Trauma, left-sided facial swelling COMPARISON: CT head same date TECHNIQUE: Axial 2 millimeter thick images of the facial bones were obtained with sagittal and coron al reconstruction imaging. All CT scans are performed using dose optimization technique as appropriate and may include automated exposure control or mA/KV adjustment according to patient size. FINDINGS: Mastoid air cells are clear. No skullbase fracture. No air-fluid level in the paranasal si nuses. Frontal sinuses are not pneumatized. Very minimal left deviation of the nasal septum is presen t. Patient is mostly edentulous. No fracture or acute bone finding identifiable. No abnormality of the left globe. Left optic nerve and extraocular muscles show no suspicious finding . Orbital fat is normal. No foreign body seen. There is soft tissue swelling in the soft tissues cove ring the orbit. No air or foreign body in the soft tissues. No post septal abnormality seen. Right gl obe and right orbital contents unremarkable. IMPRESSION: Left periorbital soft tissue swelling without air or foreign body. This could be posttra umatic or from an infectious/ inflammatory process. If the globe and orbital contents are unremarkable. No post septal abnormality seen.
[2020-12-21 17:53] LABS: Absolute Lymphocytes (CBC) 2.7 K/uL (0.7-4.9); Basophils % 0.9 % (0-1.3); Hematocrit 41.4 % (36.0-45.0); Lymphocytes % 39.4 % (15.3-44.8); MPV 7.8 fL (7.6-11.3); RBC Red Blood Cell Count 4.81 M/uL (3.86-4.86)
[2020-12-21] MEDS ORDERED: MORPHINE 4 MG/ML SYR ONE (18:09)
[2020-12-21] MEDS ORDERED: ONDANSETRON 4 MG/2 ML VIAL ONE (18:09)
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
[2020-12-21 18:15] LABS: ALT/SGPT 20 U/L (12-78); AST/SGOT 16 U/L (15-37); Albumin 3.2 g/dL (3.4-5.0); Alkaline Phosphatase 80 U/L (45-117); BUN Blood Urea Nitrogen 9 mg/dL (7-18); Bicarbonate 30 mmol/L (21-32); Bilirubin Total 0.2 mg/dL (0.2-1.0); Glucose Level 85 mg/dL (74-106); Protein, Total 7.7 g/dL (6.4-8.2); Sodium Level 142 mmol/L (136-145)
[2020-12-21 19:55] VITALS: TEMP 98.1; O2SAT 100
[2020-12-21 20:01] VITALS: BP 140/80
== END 2020-12-21 18:36 | disposition home or self-care (01) ==
LOC: ER 16:10
DX: L03.213 Periorbital cellulitis (principal); F17.210 Nicotine dependence, cigarettes, uncomplicated; Z88.0 Allergy status to penicillin
CPT/HCPCS: 85025; 36415; 80053; 70450; 72125; 70486; 76377; J2405; 96374; 96375; 99284

== ENCOUNTER 2021-07-23 06:58 | Emergency (ER) | payer OTHER ==
--- OUTSIDE RECORDS SUMMARY | 2021-07-23 07:01 | XMS REPORT | Continuity of Care Document ---
:1975 Author Organization [facility] t Address [address] [place] [address] Care Team Providers Name Role Phone Lauren MORAN Primary Care Physician Unavailable Toney VALVERDE Attending Clinician Unavailable Toney VALVERDE Attending Clinician Unavailable Kailash STODDARD S Attending Clinician CORINNE Attending Clinician Unavailable SELF Attending Clinician Unavailable Payers Payer Name Policy Type Policy Number Effective Date Expiration Date S ource [place]ICA[place] [id number] 2021 00:00:00 [facility] DUAL [id number] 2021 COMP HMO D SNP 00:00:00 [facility] STAR [id number] 2018 2019 PLUS 00:00:00 00:00:00 Advance Directives Directive Decision Effective Termination Comments Source Date Date Healthcare Agents on N/A [facility] Agent Medical RelationshipCommunication[facility] PassMotherHealth Care [phone] (Mobile) Problems Condition Condition Condition Status Onset Resolution Last Treating Co mments Source Name Details Category Date Date Treatment Clinician Date 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 +hpv Well woman Well woman Disease Active 2018- U nivers exam exam 5-07 ity of 00:00: [place] [id number] Medical Branch Breast Breast Disease Active Univers pain pain 5-07 ity of 00:00: [place] 00 Medical Branch Obesity Obesity Disease Active Univers (BMI (BMI 12-17 ity of 30-39.9) 30-39.9) 00:00: [place] 00 Medical Branch AIDS AIDS Disease Active Univers 6-09 ity of 00:00: [place] 00 Medical Branch Pneumonia Pneumonia Disease Active Uni vers 12-27 ity of 00:00: [place] 00 Medical Branch Allergies, Adverse Reactions, Alerts Allergy Allergy Status Severity Reaction(s) Onset Inactive Treating Comm ents Source Name Type Date Date Clinician PENICILL Drug Active High Unknown-Cmnt Un desean INS Class 5-17 ity of 00:00: [place] 00 Medical Branch Penicill Propensi Active Unknown - anaphylax Univers ins ty to See comments 12-27 is ity of adverse 00:00: [place] reaction 00 Medical s to Branch drug Social History Social Habit Start Date Stop Date Quantity Comments Source History SDFL University o f Alcohol Frequency [facility] Branch History [facility] o f Alcohol Std Drinks [facility] History [facility] o f Alcohol Binge [facility] al Branch Alcohol intake 2021-06-14 2021-06-14 Current University of 00:00:00 00:00:00 non-drinker of [facility] alcohol (finding) Branch Tobacco Comment 2019-05-01 2019-05-01 3-5 per day Universi ty of 00:00:00 00:00:00 [facility] Cigarettes smoked 2018-12-17 2018-12-17 Univers ity of current (pack per 00:00:00 00:00:00 [facility] ) - Reported Branch Cigarette 2018-12-17 2018-12-17 University of pack-years 00:00:00 00:00:00 [facility] Tobacco use and 2018-12-17 2018-12-17 Former user Universi ty of exposure 00:00:00 00:00:00 [facility] Alcohol Comment 2016-12-27 2016-12-27 Occasional wine Univ ersity of 00:00:00 00:00:00 [facility] History of tobacco 2016-09-29 User of smokeless University of use 00:00:00 tobacco [facility] Sex Assigned At [birth year] Universit y of 00:00:00 00:00:00 [facility] Smoking Status Start Date Stop Date Source Current some day smoker 2018-12-17 00:00:00 [facility] Medications Ordered Filled Start Stop Current Ordering Indication Dosage Frequency Signature Comments Components Source Medication Medication Date Date Medication? Clinician (SIG) Name Name traMADoL 50 2020-08 Yes [id number] 50mg Take 1 Univ ers mg tablet 1-23 tablet by ity o f 00:00: mouth [place] 00 every 8 Medical (eight) Branch hours as needed (severe pain). Indication s: chronic pain elviteg-cob 2020-08 Yes [id number] 1{tbl} Take 1 Univers -emtri-teno 1-02 tablet by ity of f ALAFEN 00:00: mouth [place] (GENVOYA) 00 every Medical 150-150-200 morning. Bran ch -10 mg per tablet gabapentin 2020-08 Yes [id number] 300mg Take 1 Univers 300 mg 1-02 capsule by ity of capsule 00:00: mouth 3 [place] 00 (three) Medical times Branch daily. elviteg-cob 2020-08 Yes [id number] 1{tbl} Take 1 Univers -emtri-teno 1-02 tablet by ity of f ALAFEN 00:00: mouth [place] (GENVOYA) 00 every Medical 150-150-200 morning. Bran ch -10 mg per tablet gabapentin 2020-08 Yes [id number] 300mg Take 1 Univers 300 mg 1-02 capsule by ity of capsule 00:00: mouth 3 [place] 00 (three) Medical times Branch daily. GABAPENTIN 2020-08- No [id number] TAKE 1 Univers 300 mg 0-19 - CAPSULE BY ity of capsule 00:00: 00:00 MOUTH [place] 00 :00 THREE Medical TIMES A Branch DAY TRAMADOL 50 No [id number] TAKE 1 Univers mg tablet 8- TABLET BY ity of 00:00: 00:00 MOUTH 3 [place] 00 :00 TIMES A Medical DAY Branch NEEDED FOR PAIN. terbinafine 2020- No [id number] 250mg Take 1 Univers HCL 250 mg 12-07- tablet by ity of tablet 00:00: 00:00 mouth [place] 00 :00 daily. [facility] Branch elviteg-cob 2020- No [id number] 1{tbl} Take 1 Univers -emtri-teno 4-27 06-14 tablet by it y of f ALAFEN 00:00: 00:00 mouth [place] (GENVOYA) 00 :00 every Medical 150-150-200 morning. Bran ch -10 mg per tablet SERTraline 2019-08 Yes [id number] Take 1 U nivers 50 mg 1-30 tablet ity of tablet 00:00: daily for [place] 14 days. Medical Then take Branch 2 tablets daily. SERTraline 2019-08 Yes [id number] Take 1 U nivers 50 mg 1-30 tablet ity of tablet 00:00: daily for [place] 14 days. Medical Then take Branch 2 tablets daily. promethazin 2020- No [id number] 5mL Take 5 mL Univers e-codeine 24 06-14 by mouth 4 ity of 6.25-10 00:00: 00:00 (four) [place] mg/5 mL 00 :00 times Medical syrup daily as Branch needed for Cough. albuterol 2020- No [id number] 2{puff} Inhale 2 Univers 90 212 06-14 Puffs ity of mcg/actuati 00:00: 00:00 [place] 6 [place] inhaler 00 :00 (six) Medical hours as Branch needed for Wheezing or Shortness of Breath. Immunizations Ordered Filled Immunization Date Status Comments [facility] e Immunization Name Name SARS-COV-2 COVID-19 2021-06-14 Completed Unive rsity of PFIZER VACCINE 00:00:00 [facility] SARS-COV-2 COVID-19 2021-06-14 Completed Unive rsity of PFIZER VACCINE 00:00:00 [facility] Influenza Virus 2020-07-13 Completed Universit y of Vaccine Recomb Quad 00:00:00 [place] Medical IM, Preserv and ABX Branc h Free 18-64 YRS Influenza Virus 2020-07-13 Completed Universit y of Vaccine Recomb Quad 00:00:00 [place] Medical IM, Preserv and ABX Branc h Free 18-64 YRS Twinrix (hep a/hep 2018-09-24 Completed Univer sity of b) 00:00:00 [facility] Twinrix (hep a/hep 2018-09-24 Completed Univer sity of b) 00:00:00 [facility] Influenza Virus 2018-06-11 Completed Universit y of Vaccine Quad .5 mL 00:00:00 [facility] IM 6+ MO Branch Twinrix (hep a/hep 2018-06-11 Completed Univer sity of b) 00:00:00 [facility] Influenza Virus 2018-06-11 Completed Universit y of Vaccine Quad .5 mL 00:00:00 [facility] [place] [facility] 6+ MO Branch Twinrix (hep a/hep 2018-06-11 Completed Univer sity of b) 00:00:00 [facility] Pneumococcal 2017-10-09 Completed University o f Polysaccharide, 00:00:00 [facility] ical PPSV23 (PNEUMOVAX) Branch TDAP (ADACEL) 2017-10-09 Completed University of VACCINE 00:00:00 [facility] Twinrix (hep a/hep 2017-10-09 Completed Univer sity of b) 00:00:00 [facility] Pneumococcal 2017-10-09 Completed University o f Polysaccharide, 00:00:00 [facility] ical PPSV23 (PNEUMOVAX) Branch TDAP (ADACEL) 2017-10-09 Completed University of VACCINE 00:00:00 [facility] Twinrix (hep a/hep 2017-10-09 Completed Univer sity of b) 00:00:00 [facility] Pneumococcal 13 2017-06-05 Completed Universit y of Conjugate, PCV13 00:00:00 [facility] dical (Prevnar 13) Branch Influenza Virus 2017-06-05 Completed Universit y of Vaccine Quad ID 00:00:00 [facility] ical 18-64 YRS Branch Pneumococcal 13 2017-06-05 Completed Universit y of Conjugate, PCV13 00:00:00 [facility] dical (Prevnar 13) Branch Influenza Virus 2017-06-05 Completed Universit y of Vaccine Quad ID 00:00:00 [facility] ical 18-64 YRS Branch Vital Signs Vital Name Observation Time Observation Value Comments Source Systolic blood 2021-06-14 20:30:00 123 mm[Hg] Univer sity of pressure [facility] Diastolic blood 2021-06-14 20:30:00 79 mm[Hg] Unive rsity of pressure [facility] Heart rate 2021-06-14 20:30:00 81 /min Universi ty of [facility] Body temperature 2021-06-14 20:30:00 36.83 Neli [facility] Respiratory rate 2021-06-14 20:30:00 18 /min [facility] Body height 2021-06-14 20:30:00 167.6 cm [facility] Body weight 2021-06-14 20:30:00 67.314 kg [facility] BMI 2021-06-14 20:30:00 23.95 kg/m2 [facility] Procedures This patient has no known procedures. Encounters Start End Encounter Admission Attending Care Care Encounter Source Date/Time Date/Time Type Type Clinicians Facility Department ID 2021-10-18 2021-10-18 Outpatient FABBY ALFONSO [facility] [id number] Univers 15:30:00 15:30:00 FABBY VALVERDE [id number] [facility] 2021-07-12 2021-07-12 Outpatient Mia [facility] [id number] Univers 15:30:00 15:30:00 [facility] 2021-07-01 2021-07-01 Telephone CORDELL Valverde [id number] Univers 00:00:00 00:00:00 [facility] HEALTH [id number] i ty of [id number] [id number] [address] 2021-06-14 2021-06-14 Office CORDELL Valverde [id number] Univers 15:14:56 15:44:56 Visit [facility] HEALTH [id number] i ty [id number] [id number] [address] 2021-06-14 2021-06-14 Outpatient FABBY ALFONSO [facility] [id number] Univers 15:30:00 15:30:00 FABBY VALVERDE [facility] 2021-05-11 2021-05-11 Outpatient Mia SUN [facility] [id number] Univers 13:45:00 13:45:00 ESTEVAN [id number] [facility] 2020-12-07 2020-12-07 Office KailashCORDELL [id number] 14:03:43 15:00:48 [facility] [id number] [facility] [id number] 2020-08-09 2020-08-09 Outpatient R GONZÁLEZ [facility] [id number] Univers 08:00:00 08:00:00 JERO covarrubias [facility] 2020-07-13 2020-07-13 Outpatient R FABBY VALVERDE [facility] [id number] Univers 15:15:00 14:49:18 FABBY VALVERDE [facility] Results This patient has no known results.
[2021-07-23] MEDS ORDERED: ONDANSETRON 4 MG/2 ML VIAL ONE (07:23)
[2021-07-23] MEDS ORDERED: NA CHLORIDE 0.9% 1,000 ML ONE (07:23)
[2021-07-23] MEDS ORDERED: KETOROLAC 30 MG/ML INJ ONE (07:23)
[2021-07-23 07:46] LABS: Urine Blood Negative (Negative); Urine Glucose Negative (Negative); Urine Protein Negative (Negative); Urine pH 7.5 (5.0-7.0)
[2021-07-23 08:03] LABS: Absolute Lymphocytes (CBC) 1.9 K/uL (0.7-4.9); Basophils % 0.7 % (0-1.3); Hematocrit 35.9 % (36.0-45.0); Lymphocytes % 20.9 % (15.3-44.8); MPV 7.1 fL (7.6-11.3); RBC Red Blood Cell Count 4.19 M/uL (3.86-4.86)
[2021-07-23 08:34] LABS: ALT/SGPT 28 U/L (12-78); AST/SGOT 16 U/L (15-37); Albumin 2.7 g/dL (3.4-5.0); Alkaline Phosphatase 86 U/L (45-117); BUN Blood Urea Nitrogen 12 mg/dL (7-18); Bicarbonate 29 mmol/L (21-32); Bilirubin Direct < 0.1 mg/dL (0-0.2); Bilirubin Total 0.1 mg/dL (0.2-1.0); Glucose Level 87 mg/dL (74-106); Lipase 96 U/L (73-393); Potassium 4.4 mmol/L (3.5-5.1); Protein, Total 7.6 g/dL (6.4-8.2); Sodium Level 144 mmol/L (136-145)
--- NOTE | 2021-07-23 08:47 | RAD REPORT ---
EXAM DESCRIPTION: US - Abdomen Exam Limited - 07/23/2021 8:31 am CLINICAL HISTORY: ABD PAIN COMPARISON: No comparisonsNo comparisons FINDINGS: Small echogenic focus near the gallbladder neck which is mobile and consistent with a tiny gallstone. Gallbladder is distended. No pericholecystic fluid or gallbladder wall edema. The common bile duct measures 2 millimeters. The liver demonstrates no findings of intrahepatic biliary dilatation. IMPRESSION: Cholelithiasis without sonographic evidence of acute cholecystitis.
--- NOTE | 2021-07-23 09:13 | ER ---
Nurse's Notes [facility] Name: Tianna Costello Age: 46 yrs Sex: Female : 1975 Arrival Date: 07/23/2021 Time: 07:05 Bed 4 Private MD: Diagnosis: Other cholelithiasis without obstruction Presentation: 07/23 07:05 Chief complaint: EMS states: Called for nausea/vomiting x 5 days, RUQ abdominal pain, lp1 intermittent. Coronavirus screen: At this time, the client does not indicate any symptoms associated with coronavirus-19. Ebola Screen: No symptoms or risks identified at this time. Initial Sepsis Screen: Does the patient meet any 2 criteria? No. Patient's initial sepsis screen is negative. Does the patient have a suspected source of infection? No. Patient's initial sepsis screen is negative. Risk Assessment: Do you want to hurt yourself or someone else? Patient reports no desire to harm self or others. Onset of symptoms was July 23, 2021. 07:05 Method Of Arrival: EMS: [facility] lp1 07:05 Acuity: DAVID 3 lp1 Triage Assessment: 07:09 General: Appears in no apparent distress. Behavior is calm, cooperative, appropriate lp1 for age. Pain: Complains of pain in right upper quadrant. GI: Abdomen is non-distended, Reports nausea, vomiting, none at this time. CLERICAL GRADER: 07:08 LMP N/A - Post-menopause lp1 Historical: - Allergies: 07:07 PENICILLINS; lp1 - Home Meds: 07:07 Genvoya oral [Active]; lp1 - PMHx: 07:07 Anxiety; Asthma; HIV positive; lp1 - PSHx: 07:07 section; lp1 - Immunization history:: Adult Immunizations up to date, Client reports receiving the 1st dose of the Covid vaccine. - Social history:: Smoking status: Patient reports the use of cigarette tobacco products, smokes one-half pack cigarettes per day. - Family history:: not pertinent. Screenin:08 Abuse screen: Denies threats or abuse. Denies injuries from another. Nutritional lp1 screening: No deficits noted. Tuberculosis screening: No symptoms or risk factors identified. Fall Risk None identified. Assessment: 07:11 Reassessment: RECD REPORT FROM MCKINLEY PEÑA. 46YO BF P/W RUQ PAIN AND N/V FROM [facility].bp 09:07 Reassessment: Pt ambulated with steady gait to restroom. ss 09:21 Reassessment: PT D/C HOME AMBULATORY, DX WITH CHOLELITHIASIS. bp Vital Signs: 07:05 BP 153 / 107; Pulse 78; Resp 18; Temp 97.8(O); Pulse Ox 100% on R/A; Weight 58.97 kg lp1 (R); Height 5 ft. 6 in. (167.64 cm); Pain 0/10; 09:07 BP 125 / 92; Pulse 106; Pulse Ox 98% ; ss 07:05 Body Mass Index 20.98 (58.97 kg, 167.64 cm) lp1 ED Course: 07:05 Patient arrived in ED. iw 07:07 Triage completed. lp1 07:07 Arm band placed on right wrist. lp1 07:08 Patient has correct armband on for positive identification. Placed in gown. Pulse ox lp1 on. NIBP on. 07:10 Cristobal Fuller, MARIANA is Primary Nurse. as6 07:10 Primary Nurse role handed off by Cristobal Fuller RN bp 07:10 Owen Underwood, MARIANA is Primary Nurse. bp 07:11 Umesh Dc NP is PHCP. pm1 07:11 Robert Anderson MD is Attending Physician. pm1 07:14 Cory Park MD is Attending Physician. pm1 07:57 Initial lab(s) drawn, by mo, sent to lab. Inserted saline lock: 22 gauge in left em1 antecubital area, using aseptic technique. Blood collected. 08:31 US Abdomen Limited In Process Unspecified. EDMS 09:12 Ancelmo Dela Cruz MD is Referral Physician. ma2 09:21 No provider procedures requiring assistance completed. IV discontinued, intact, bp bleeding controlled, No redness/swelling at site. Pressure dressing applied. Administered Medications: 08:00 Drug: NS 0.9% 1000 ml Route: IV; Rate: 1 bolus; Site: left antecubital; bp 09:25 Follow up: IV Status: Completed infusion; IV Intake: 1000ml bp 08:00 Drug: Zofran (Ondansetron) 4 mg Route: IVP; Site: left antecubital; bp 09:25 Follow up: Response: Nausea is decreased bp 08:00 Drug: Ketorolac 30 mg Route: IVP; Site: left antecubital; bp 09:25 Follow up: Response: Pain is decreased bp Intake: 09:25 IV: 1000ml; Total: 1000ml. bp Outcome: 09:13 Discharge ordered by MD. guerrero 09:21 Discharged to home ambulatory, with family. bp 09:21 Condition: stable 09:21 Discharge instructions given to patient, Instructed on discharge instructions, follow up and referral plans. medication usage, Demonstrated understanding of instructions, follow-up care, medications, Prescriptions given X 1. 09:25 Patient left the ED. bp Signatures: Dispatcher [employer] EDMS Li Charles, RN Catalino Carrillo em1 Lulú Maza RN RN ss Mckinley Lehman RN RN lp1 Umesh Dc, PRACTICE ADVISOR PRACTICE ADVISOR pm1 Owen Underwood RN RN Cory Kennedy MD MD ma2 Cristobal Fuller RN RN as6
--- NOTE | 2021-07-23 09:14 | EDPHYS ---
Physician Documentation [facility] Name: Tianna Costello Age: 46 yrs Sex: Female : 1975 Arrival Date: 07/23/2021 Time: 07:05 Bed 4 Private MD: ED Physician Cory Park HPI: 07/23 07:15 This 46 yrs old Black Female presents to ER via EMS with complaints of Nausea/Vomiting. ma2 07:15 The patient presents to the emergency department with nausea, vomiting. Onset: The ma2 symptoms/episode began/occurred gradually, 1 day(s) ago. Associated signs and symptoms: Pertinent negatives: diarrhea, fever, flatulence, hematuria. Severity of symptoms: At their worst the symptoms were moderate in the emergency department the symptoms are unchanged. The patient has not experienced similar symptoms in the past. GLOBAL CLINICAL LEADER: 07:08 LMP N/A - Post-menopause lp1 Historical: - Allergies: 07:07 PENICILLINS; lp1 - Home Meds: 07:07 Genvoya oral [Active]; lp1 - PMHx: 07:07 Anxiety; Asthma; HIV positive; lp1 - PSHx: 07:07 section; lp1 - Immunization history:: Adult Immunizations up to date, Client reports receiving the 1st dose of the Covid vaccine. - Social history:: Smoking status: Patient reports the use of cigarette tobacco products, smokes one-half pack cigarettes per day. - Family history:: not pertinent. ROS: 07:15 Constitutional: Negative for fever, chills, and weight loss. ma2 07:15 All other systems are negative. Exam: 07:15 Constitutional: This is a well developed, well nourished patient who is awake, alert, ma2 and in no acute distress. Neck: Trachea midline, no thyromegaly or masses palpated, and no cervical lymphadenopathy. Supple, full range of motion without nuchal rigidity, or vertebral point tenderness. No Meningismus. Chest/axilla: Normal chest wall appearance and motion. Nontender with no deformity. No lesions are appreciated. Cardiovascular: Regular rate and rhythm with a normal S1 and S2. No gallops, murmurs, or rubs. Normal PMI, no JVD. No pulse deficits. Respiratory: Lungs have equal breath sounds bilaterally, clear to auscultation and percussion. No rales, rhonchi or wheezes noted. No increased work of breathing, no retractions or nasal flaring. Abdomen/GI: Soft, non-tender, with normal bowel sounds. No distension or tympany. No guarding or rebound. No evidence of tenderness throughout. Skin: Warm, dry with normal turgor. Normal color with no rashes, no lesions, and no evidence of cellulitis. MS/ Extremity: Pulses equal, no cyanosis. Neurovascular intact. Full, normal range of motion. Neuro: Awake and alert, GCS 15, oriented to person, place, time, and situation. Cranial nerves II-XII grossly intact. Motor strength 5/5 in all extremities. Sensory grossly intact. Cerebellar exam normal. Normal gait. Vital Signs: 07:05 BP 153 / 107; Pulse 78; Resp 18; Temp 97.8(O); Pulse Ox 100% on R/A; Weight 58.97 kg lp1 (R); Height 5 ft. 6 in. (167.64 cm); Pain 0/10; 09:07 BP 125 / 92; Pulse 106; Pulse Ox 98% ; ss 07:05 Body Mass Index 20.98 (58.97 kg, 167.64 cm) lp1 MDM: 07:12 Patient medically screened. pm1 07:15 Differential diagnosis: gastritis, cholecystitis, pancreatitis, viral gastroenteritis, ma2 gastroenteritis. 09:12 Data reviewed: vital signs, nurses notes. Counseling: I had a detailed discussion with ma2 the patient and/or guardian regarding: the historical points, exam findings, and any diagnostic results supporting the discharge/admit diagnosis, the presence of at least one elevated blood pressure reading (>120/80) during this emergency department visit, the need for outpatient follow up. Response to treatment: the patient's symptoms have markedly improved after treatment. 07/23 07:15 Order name: Basic Metabolic Panel; Complete Time: 08:51 ma2 07/23 07:15 Order name: CBC with Diff; Complete Time: 08:51 ma2 07/23 07:15 Order name: Hepatic Function; Complete Time: 08:51 ma2 07/23 07:15 Order name: Lipase; Complete Time: 08:51 ma2 07/23 07:46 Order name: Urine Dipstick-Ancillary; Complete Time: 08:51 EDMS 07/23 07:50 Order name: Urine --Ancillary (enter results); Complete Time: 08:51 eb 07/23 07:15 Order name: IV Saline Lock; Complete Time: 07:57 ma2 07/23 07:15 Order name: Labs collected and sent; Complete Time: 07:57 ma2 07/23 07:15 Order name: US Abdomen Limited; Complete Time: 08:51 ma2 07/23 07:15 Order name: Urine Dipstick-Ancillary (obtain specimen); Complete Time: 08:06 ma2 Administered Medications: 08:00 Drug: NS 0.9% 1000 ml Route: IV; Rate: 1 bolus; Site: left antecubital; bp 09:25 Follow up: IV Status: Completed infusion; IV Intake: 1000ml bp 08:00 Drug: Zofran (Ondansetron) 4 mg Route: IVP; Site: left antecubital; bp 09:25 Follow up: Response: Nausea is decreased bp 08:00 Drug: Ketorolac 30 mg Route: IVP; Site: left antecubital; bp 09:25 Follow up: Response: Pain is decreased bp Disposition Summary: 07/23/21 09:13 Discharge Ordered Location: Home ma2 Condition: Stable ma2 Diagnosis - Other cholelithiasis without obstruction ma2 Followup: ma2 - With: Private Physician - When: Tomorrow - Reason: If symptoms return, Continuance of care Followup: ma2 - With: Ancelmo Dela Cruz MD - When: Today - Reason: Continuance of care Discharge Instructions: - Discharge Summary Sheet ma2 - Cholelithiasis ma2 Forms: - Medication Reconciliation Form ma2 - Thank You Letter ma2 - Antibiotic Education ma2 - Prescription Opioid Use ma2 Prescriptions: - Diclofenac Sodium 75 mg Oral Tablet Sustained Release - take 1 tablet by ORAL route 2 times per day; 30 tablet; Refills: 0, Product ma2 Selection Permitted Signatures: Dispatcher [employer] EDMS Marixa Lehman RN RN lp1 Umesh Dc, ACCOUNT GENERAL MANAGER ACCOUNT GENERAL MANAGER pm1 Owen Underwood, RN RN bp Cory Park MD MD ma2 Corrections: (The following items were deleted from the chart) 07:51 07:16 Abdomen Limited+[email or web address] ordered. EDMS EDMS
[2021-07-23 09:38] VITALS: TEMP 97.8
[2021-07-23 09:41] VITALS: BP 125/92; O2SAT 98
== END 2021-07-23 09:25 | disposition home or self-care (01) ==
LOC: ER 06:58
DX: K80.80 Other cholelithiasis without obstruction (principal); Z21 Asymptomatic human immunodeficiency virus [HIV] infection status; F17.210 Nicotine dependence, cigarettes, uncomplicated; Z88.0 Allergy status to penicillin
CPT/HCPCS: 96361; 85025; 80048; 36415; 81025; 80076; 81003; 83690; 76705; 96375; 96374; 99284; J7030; J2405

== ENCOUNTER 2022-05-06 12:09 | Emergency (ER) | payer OTHER ==
--- OUTSIDE RECORDS SUMMARY | 2022-05-06 12:14 | XMS REPORT | Continuity of Care Document ---
:[address] [facility] t Address [address] [place] [address] Care Team Providers Name Role Phone Lashonda De Oliveira Primary Care Physician [phone] CHRIS LINDER Attending Clinician Unavailable CHRIS LINDER Attending Clinician Unavailable ESTEVAN SUN Attending Clinician Unavailable Thierno Wade DO Attending Clinician Chris Linder MD Attending Clinician Lashonda De Oliveira Attending Clinician [phone] DARIA HAYDEN Attending Clinician Unavailable ELENA LORA Attending Clinician Unavailable ELENA LORA Attending Clinician Unavailable RENNY CARDENAS Attending Clinician Unavailable Doctor Unassigned, [place] Attending Clinician Unavailable Mayra Viveros MD Attending Clinician JEROME ONEIL Attending Clinician Unavailable Payers Payer Name Policy Type Policy Number Effective Date Expiration Date Toney bae CHERIE/[facility] DUAL [id number] 2022 00:00:00 COMP HMO D SNP [facility] [id number] 2021 00:00:00 PLUS Problems Condition Condition Condition Status Onset Resolution [...] +hpv Well woman Well woman Disease Active U nivers exam exam 5- ity of 00:00: [place] [facility] Breast Breast Disease Active Univers pain pain 12-17 ity of 00:00: Medical Branch Obesity Obesity Disease Active Univers (BMI (BMI 12-17 ity of 30-39.9) 30-39.9) 00:00: Medical Branch AIDS AIDS Disease Active Univers 6 ity of 00:00: Medical Branch Pneumonia Pneumonia Disease Active Uni vers 5 ity of 00:00: Medical Branch Allergies, Adverse Reactions, Alerts Allergy Allergy Status Severity Reaction(s) Onset Inactive Treating Comm ents Source Name Type Date Date Clinician PENICILL Drug Active High Unknown-Cmnt Un desean INS Class 5-17 ity of 00:00: [place] 00 Medical Branch Penicill Propensi Active Unknown - anaphylax Univers ins ty to See comments 5-17 is ity of adverse 00:00: [place] reaction 00 Medical s to Branch drug Penicill Propensi Active Unknown - anaphylax Univers ins ty to See comments 5-17 is ity of adverse 00:00: [place] reaction 00 Medical s to Branch drug Penicill Propensi Active Unknown - anaphylax Univers ins ty to See comments 5-17 is ity of adverse 00:00: [place] reaction 00 Medical s to Branch drug Social History Social Habit Start Date Stop Date Quantity Comments Source History [facility] o f Alcohol Frequency [facility] Branch History [facility] o f Alcohol Std Drinks [facility] History [facility] o f Alcohol Binge [facility] al Branch Cigarettes smoked 2022-05-02 2022-05-02 Univers ity of current (pack per 00:00:00 00:00:00 [facility] ) - Reported Branch Cigarette 2022-05-02 2022-05-02 University of pack-years 00:00:00 00:00:00 [facility] Tobacco use and 2022-05-02 2022-05-02 Former smokeless Uni versity of exposure 00:00:00 00:00:00 tobacco user [facility] Branch Alcohol intake 2022-05-02 2022-05-02 Current University of 00:00:00 00:00:00 non-drinker of [facility] alcohol (finding) Branch Tobacco Comment 2022-05-02 2022-05-02 3-5 per day Universi ty of 00:00:00 00:00:00 [facility] Exposure to 2021-09-18 2021-10-18 Not sure University SARS-CoV-2 (event) 00:00:00 16:06:00 [facility] Alcohol Comment 2016-12-27 2016-12-27 Occasional wine Univ ersity of 00:00:00 00:00:00 [facility] History of tobacco 2016-09-29 User of smokeless University of use 00:00:00 tobacco [facility] Sex [birth year] Universit y of 00:00:00 00:00:00 [facility] Smoking Status Start Date Stop Date Source Occasional tobacco smoker 2022-05-02 00:00:00 Un iversity of [facility] Medications Ordered Filled Start Stop Current Ordering Indication Dosage Frequency Signature Comments Components Source Medication Medication Date Date Medication? Clinician (SIG) Name Name elviteg-cob Yes [id number] 1{tbl} Take 1 Univers -emtri-teno 9-20 tablet by ity of f ALAFEN 00:00: mouth [place] (GENVOYA) 00 every Medical 150-150-200 morning. Bran ch -10 mg per tablet elviteg-cob Yes [id number] 1{tbl} Take 1 Univers -emtri-teno 9-20 tablet by ity of f ALAFEN 00:00: mouth [place] (GENVOYA) 00 every Medical 150-150-200 morning. Bran ch -10 mg per tablet elviteg-cob Yes [id number] 1{tbl} Take 1 Univers -emtri-teno 9-20 tablet by ity of f ALAFEN 00:00: mouth [place] (GENVOYA) 00 every Medical 150-150-200 morning. Bran ch -10 mg per tablet traMADoL 50 Yes 2745 TAKE 1 Univ ers mg tablet 9-20 TABLET BY ity o f 00:00: MOUTH [place] 00 EVERY 8 Medical HOURS Branch NEEDED FOR PAIN Indication s: chronic pain gabapentin Yes [id number] 300mg Take 1 Univers 300 mg 9-20 capsule by ity of capsule 00:00: mouth in [place] 00 the Medical morning Branch and 1 capsule at noon and 1 capsule in the evening. elviteg-cob 2021-0 Yes [id number] 1{tbl} Take 1 Univers -emtri-teno 9-20 tablet by ity of f ALAFEN 00:00: mouth [place] ([facility]) 00 every Medical 150-150-200 morning. Bran ch -10 mg per tablet traMADoL 50 2021-0 Yes 2745 TAKE 1 Univ ers mg tablet 9-20 TABLET BY ity o f 00:00: MOUTH [place] 00 EVERY 8 Medical HOURS Branch NEEDED FOR PAIN Indication s: chronic pain gabapentin 2021-0 Yes [id number] 300mg Take 1 Univers 300 mg 9-20 capsule by ity of capsule 00:00: mouth in [place] 00 the Medical morning Branch and 1 capsule at noon and 1 capsule in the evening. elviteg-cob 2021-0 Yes [id number] 1{tbl} Take 1 Univers -emtri-teno 9-20 tablet by ity of f ALAFEN 00:00: mouth [place] ([facility]) 00 every Medical 150-150-200 morning. Bran ch -10 mg per tablet traMADoL 50 2021-0 Yes 2745 TAKE 1 Univ ers mg tablet 9-20 TABLET BY ity o f 00:00: MOUTH [place] 00 EVERY 8 Medical HOURS Branch NEEDED FOR PAIN Indication s: chronic pain gabapentin 2021-0 Yes [id number] 300mg Take 1 Univers 300 mg 9-20 capsule by ity of capsule 00:00: mouth in [place] 00 the Medical morning Branch and 1 capsule at noon and 1 capsule in the evening. elviteg-cob 2021-0 Yes [id number] 1{tbl} Take 1 Univers -emtri-teno 9-20 tablet by ity of f ALAFEN 00:00: mouth [place] [facility] every Medical 150-150-200 morning. Bran ch -10 mg per tablet traMADoL 50 2021-0 Yes 2745 TAKE 1 Univ ers mg tablet 9-20 TABLET BY ity o f 00:00: MOUTH [place] 00 EVERY 8 Medical HOURS Branch NEEDED FOR PAIN Indication s: chronic pain gabapentin 2021-0 Yes [id number] 300mg Take 1 Univers 300 mg 9-20 capsule by ity of capsule 00:00: mouth in [place] 00 the Medical morning Branch and 1 capsule at noon and 1 capsule in the evening. traZODone 2022-0 Yes 50mg Take 50 mg Un desean 50 mg 9-07 by mouth ity of tablet 00:00: at [place] [address] bedtime. Medical Branch SERTraline 2-0 Yes 100mg Take 100 Un desean 100 mg 9-07 mg by ity of tablet 00:00: mouth in [place] 00 the Medical morning. Branch ARIPiprazol 2-0 Yes 10mg Take 10 mg Univers e 10 mg 9-07 by mouth ity of tablet 00:00: at [place] [address] bedtime. Medical Branch traZODone 2-0 Yes 50mg Take 50 mg Un desean 50 mg 9-07 by mouth ity of tablet 00:00: at [place] [address] bedtime. Medical Branch SERTraline 2-0 Yes 100mg Take 100 Un desean 100 mg 9-07 mg by ity of tablet 00:00: mouth in [place] the Medical morning. Branch ARIPiprazol 2-0 Yes 10mg Take 10 mg Univers e 10 mg 9-07 by mouth ity of tablet 00:00: at [place] [address] bedtime. Medical Branch traZODone 2-0 Yes 50mg Take 50 mg Un desean 50 mg 9-07 by mouth ity of tablet 00:00: at [place] [address] bedtime. Medical Branch SERTraline 2-0 Yes 100mg Take 100 Un desean 100 mg 9-07 mg by ity of tablet 00:00: mouth in [place] the Medical morning. Branch ARIPiprazol 2-0 Yes 10mg Take 10 mg Univers e 10 mg 9-07 by mouth ity of tablet 00:00: at [place] [address] bedtime. Medical Branch traZODone 2-0 Yes 50mg Take 50 mg Un desean 50 mg 9-07 by mouth ity of tablet 00:00: at [place] [address] bedtime. Medical Branch SERTraline 2-0 Yes 100mg Take 100 Un desean 100 mg 9-07 mg by ity of tablet 00:00: mouth in [place] 00 the Medical morning. Branch ARIPiprazol 2-0 Yes 10mg Take 10 mg Univers e 10 mg 9-07 by mouth ity of tablet 00:00: at [place] [address] bedtime. Medical Branch traZODone 2021-0 Yes 50mg Take 50 mg Un desean 50 mg 9-07 by mouth ity of tablet 00:00: at [place] [address] bedtime. Medical Branch SERTraline 2021-0 Yes 100mg Take 100 Un desean 100 mg 9-07 mg by ity of tablet 00:00: mouth in [place] 00 the Medical morning. Branch ARIPiprazol 2021-0 Yes 10mg Take 10 mg Univers e 10 mg 9-07 by mouth ity of tablet 00:00: at [place] [address] bedtime. Medical Branch traZODone 0 Yes 50mg Take 50 mg Un edsean 50 mg 9-07 by mouth ity of tablet 00:00: at [place] [address] bedtime. Medical Branch SERTraline 0 Yes 100mg Take 100 Un desean 100 mg 9-07 mg by ity of tablet 00:00: mouth in [place] 00 the Medical morning. Branch ARIPiprazol 0 Yes 10mg Take 10 mg Univers e 10 mg 9-07 by mouth ity of tablet 00:00: at [place] [address] bedtime. Medical Branch traMADoL 50 2021-0 Yes 2745 TAKE 1 Univ ers mg tablet 6-16 TABLET BY ity o f 00:00: MOUTH [place] 00 EVERY 8 Medical HOURS Branch NEEDED FOR PAIN Indication s: chronic pain traMADoL 50 2021-0 Yes 2745 TAKE 1 Univ ers mg tablet 6-16 TABLET BY ity o f 00:00: MOUTH [place] 00 EVERY 8 Medical HOURS Branch NEEDED FOR PAIN Indication s: chronic pain traMADoL 50 2021-0 Yes 2745 TAKE 1 Univ ers mg tablet 6-16 TABLET BY ity o f 00:00: MOUTH [place] 00 EVERY 8 Medical HOURS Branch NEEDED FOR PAIN Indication s: chronic pain traMADoL 50 2021-0 Yes 2745 TAKE 1 Univ ers mg tablet 6-16 TABLET BY ity o f 00:00: MOUTH [place] [address] EVERY 8 Medical HOURS Branch NEEDED FOR PAIN Indication s: chronic pain traMADoL 50 2021-0 2022- No 2745 TAKE 1 Uni vers mg tablet 6-16 09-20 TABLET BY ity of 00:00: 00:00 MOUTH [place] 00 :00 EVERY 8 Medical HOURS Branch NEEDED FOR PAIN Indication s: chronic pain traMADoL 50 2021-0 2- No 2745 TAKE 1 Uni vers mg tablet 616 09-20 TABLET BY ity of 00:00: 00:00 MOUTH [place] 00 :00 EVERY 8 Medical HOURS Branch NEEDED FOR PAIN Indication s: chronic pain elviteg-cob 2021-0 Yes [id number] 1{tbl} Take 1 Univers -emtri-teno 3-08 tablet by ity of f ALAFEN 00:00: mouth ([place]) 00 every Medical 150-150-200 morning. Bran ch -10 mg per tablet gabapentin 2021-0 Yes [id number] 300mg Take 1 Univers 300 mg 3-08 capsule by ity of capsule 00:00: mouth (three) Medical times Branch daily. elviteg-cob 2021-0 Yes [id number] 1{tbl} Take 1 Univers -emtri-teno 3-08 tablet by ity of f ALAFEN 00:00: mouth ([place]) 00 every Medical 150-150-200 morning. Bran ch -10 mg per tablet gabapentin 2021-0 Yes [id number] 300mg Take 1 Univers 300 mg 3-08 capsule by ity of capsule 00:00: mouth (three) Medical times Branch daily. elviteg-cob 2021-0 Yes [id number] 1{tbl} Take 1 Univers -emtri-teno 3-08 tablet by ity of f ALAFEN 00:00: mouth [place] ([facility]) 00 every Medical 150-150-200 morning. Bran ch -10 mg per tablet gabapentin 2021-0 Yes [id number] 300mg Take 1 Univers 300 mg 3-08 capsule by ity of capsule 00:00: mouth (three) Medical times Branch daily. elviteg-cob 2021-0 Yes [id number] 1{tbl} Take 1 Univers -emtri-teno 3-08 tablet by ity of f ALAFEN 00:00: mouth ([place]) 00 every Medical 150-150-200 morning. Bran ch -10 mg per tablet gabapentin 2021-0 Yes [id number] 300mg Take 1 Univers 300 mg 3-08 capsule by ity of capsule 00:00: mouth 3 (three) Medical times Branch daily. elviteg-cob 2021-0 Yes [id number] 1{tbl} Take 1 Univers -emtri-teno 3-08 tablet by ity of f ALAFEN 00:00: mouth [place] ([facility]) 00 every Medical 150-150-200 morning. Bran ch -10 mg per tablet gabapentin 2021-0 Yes [id number] 300mg Take 1 Univers 300 mg 3-08 capsule by ity of capsule 00:00: mouth 3 [place] 00 (three) Medical times Branch daily. elviteg-cob 2021-0 Yes [id number] 1{tbl} Take 1 Univers -emtri-teno 3-08 tablet by ity of f ALAFEN 00:00: mouth [place] ([facility]) 00 every Medical 150-150-200 morning. Bran ch -10 mg per tablet gabapentin 2021-0 Yes [id number] 300mg Take 1 Univers 300 mg 3-08 capsule by ity of capsule 00:00: mouth 3 [place] 00 (three) Medical times Branch daily. elviteg-cob 2021-0 Yes [id number] 1{tbl} Take 1 Univers -emtri-teno 3-08 tablet by ity of f ALAFEN 00:00: mouth [place] ([facility]) 00 every Medical 150-150-200 morning. Bran ch -10 mg per tablet gabapentin 2021-0 Yes [id number] 300mg Take 1 Univers 300 mg 3-08 capsule by ity of capsule 00:00: mouth 3 00 (three) Medical times Branch daily. gabapentin 2021-0 Yes [id number] 300mg Take 1 Univers 300 mg 3-08 capsule by ity of capsule 00:00: mouth 3 00 (three) Medical times Branch daily. gabapentin 2021-0 Yes [id number] 300mg Take 1 Univers 300 mg 3-08 capsule by ity of capsule 00:00: mouth 3 [place] 00 (three) Medical times Branch daily. elviteg-cob 2021-0 2021- No [id number] 1{tbl} Take 1 Univers -emtri-teno 3-08 09-20 tablet by it y of f ALAFEN 00:00: 00:00 mouth [place] ([facility]) 00 :00 every Medical 150-150-200 morning. Bran ch -10 mg per tablet elviteg-cob 2021-0 2021- No [id number] 1{tbl} Take 1 Univers -emtri-teno -03 21-20 tablet by it y of f ALAFEN 00:00: 00:00 mouth [place] [facility] :00 every Medical 150-150-200 morning. Bran ch -10 mg per tablet elviteg-cob 2021- No [id number] 1{tbl} Take 1 Univers -emtri-teno -03 21-20 tablet by it y of f ALAFEN 00:00: 00:00 mouth [place] [facility] :00 every Medical 150-150-200 morning. Bran ch -10 mg per tablet gabapentin 2021- No [id number] 300mg Take 1 Univers 300 mg 10-18 capsule by ity of capsule 00:00: 00:00 mouth 3 [place] 00 :00 (three) Medical times Branch daily. elviteg-cob 2021- No [id number] 1{tbl} Take 1 Univers -emtri-teno -20 tablet by it y of f ALAFEN 00:00: 00:00 mouth [place] ([facility]) 00 :00 every Medical 150-150-200 morning. Bran ch -10 mg per tablet gabapentin 2021- No [id number] 300mg Take 1 Univers 300 mg 10-18 capsule by ity of capsule 00:00: 00:00 mouth 3 [place] 00 :00 (three) Medical times Branch daily. TRAMADOL 50 2021-0 Yes [id number] TAKE 1 Univers mg tablet 2-24 TABLET BY ity o f 00:00: MOUTH [place] 00 EVERY 8 Medical HOURS Branch NEEDED FOR PAIN TRAMADOL 50 2021-0 Yes [id number] TAKE 1 Univers mg tablet 2-24 TABLET BY ity o f 00:00: MOUTH [place] 00 EVERY 8 Medical HOURS Branch NEEDED FOR PAIN TRAMADOL 50 2021-0 Yes [id number] TAKE 1 Univers mg tablet 2-24 TABLET BY ity o f 00:00: MOUTH [place] 00 EVERY 8 Medical HOURS Branch NEEDED FOR PAIN TRAMADOL 50 2021-0 2021- No [id number] TAKE 1 Univers mg tablet 2-24 06-15 TABLET BY ity of 00:00: 00:00 MOUTH [place] 00 :00 EVERY 8 Medical HOURS Branch NEEDED FOR PAIN elviteg-cob 2020-08- No [id number] 1{tbl} Take 1 Univers -emtri-teno 08-14 tablet by it y of f ALAFEN 00:00: 00:00 mouth [place] ([facility]) 00 :00 every Medical 150-150-200 morning. Bran ch -10 mg per tablet gabapentin 2020-08- No [id number] 300mg Take 1 Univers 300 mg 08-14 capsule by ity of capsule 00:00: 00:00 mouth 3 [place] 00 :00 (three) Medical times Branch daily. SERTraline 2019-08 Yes [id number] Take 1 U nivers 50 mg 1-30 tablet ity of tablet 00:00: daily for [place] 14 days. Medical Then take Branch 2 tablets daily. SERTraline 2019-08 Yes [id number] Take 1 U nivers 50 mg 1-30 tablet ity of tablet 00:00: daily for [place] 14 days. Medical Then take Branch 2 tablets daily. SERTraline 2019-08 Yes [id number] Take 1 U nivers 50 mg 1-30 tablet ity of tablet 00:00: daily for [place] 14 days. Medical Then take Branch 2 tablets daily. SERTraline 2019-08 Yes [id number] Take 1 U nivers 50 mg 1-30 tablet ity of tablet 00:00: daily for [place] 14 days. Medical Then take Branch 2 tablets daily. SERTraline 2019-08 Yes [id number] Take 1 U nivers 50 mg 1-30 tablet ity of tablet 00:00: daily for [place] 14 days. Medical Then take Branch 2 tablets daily. SERTraline 2019-08 Yes [id number] Take 1 U nivers 50 mg 1-30 tablet ity of tablet 00:00: daily for [place] 14 days. Medical Then take Branch 2 tablets daily. SERTraline 2019-08 Yes [id number] Take 1 U nivers 50 mg 1-30 tablet ity of tablet 00:00: daily for [place] 14 days. Medical Then take Branch 2 tablets daily. SERTraline 2019-08 Yes [id number] Take 1 U nivers 50 mg 1-30 tablet ity of tablet 00:00: daily for [place] 14 days. Medical Then take Branch 2 tablets daily. SERTraline 2019-08- No [id number] Take 1 Univers 50 mg 1-30 09-20 tablet ity of tablet 00:00: 00:00 daily for [place] 00 :00 14 days. Medical Then take Branch 2 tablets daily. SERTraline 2019-08- No [id number] Take 1 Univers 50 mg 1-30 09-20 tablet ity of tablet 00:00: 00:00 daily for [place] 00 :00 14 days. Medical Then take Branch 2 tablets daily. SERTraline 2019-08- No [id number] Take 1 Univers 50 mg 1-30 09-20 tablet ity of tablet 00:00: 00:00 daily for [place] 00 :00 14 days. Medical Then take Branch 2 tablets daily. SERTraline 2019-08 No [id number] Take 1 Univers 50 mg 1-30 -20 tablet ity of tablet 00:00: 00:00 daily for [place] 00 :00 14 days. Medical Then take Branch 2 tablets daily. Immunizations Ordered Filled Immunization Date Status Comments [facility] e Immunization Name Name Influenza Virus 2022-05-02 Completed Universit y of Vaccine Quad IM, 00:00:00 [place] Me dical Preserv and ABX Branch Free 6 MO-64 YRS SARS-COV-2 COVID-19 2022-05-02 Completed Unive rsity of VACCINE 18 YRS+, 00:00:00 [place] Me dical BIVALENT 0.5ML, IM, Branc h (MODERNA BOOSTER) Influenza Virus 2022-05-02 Completed Universit y of Vaccine Quad IM, 00:00:00 [place] Me dical Preserv and ABX Branch Free 6 MO-64 YRS SARS-COV-2 COVID-19 2022-05-02 Completed Unive rsity of VACCINE 18 YRS+, 00:00:00 [place] Me dical BIVALENT 0.5ML, IM, Branc h (MODERNA BOOSTER) Influenza Virus 2022-05-02 Completed Universit y of Vaccine Quad IM, 00:00:00 [place] Me dical Preserv and ABX Branch Free 6 MO-64 YRS SARS-COV-2 COVID-19 2022-05-02 Completed Unive rsity of VACCINE 18 YRS+, 00:00:00 [place] Me dical BIVALENT 0.5ML, IM, Branc h (MODERNA BOOSTER) Influenza Virus 2022-05-02 Completed Universit y of Vaccine Quad IM, 00:00:00 [place] Me dical Preserv and ABX Branch Free 6 MO-64 YRS SARS-COV-2 COVID-19 2022-05-02 Completed Unive rsity of VACCINE 18 YRS+, 00:00:00 [place] Me dical BIVALENT 0.5ML, IM, Branc h (MODERNA BOOSTER) Influenza Virus 2022-05-02 Completed Universit y of Vaccine Quad IM, 00:00:00 [place] Me dical Preserv and ABX Branch Free 6 MO-64 YRS SARS-COV-2 COVID-19 2022-05-02 Completed Unive rsity of VACCINE 18 YRS+, 00:00:00 [place] Me dical BIVALENT 0.5ML, IM, Branc h (MODERNA BOOSTER) Influenza Virus 2022-05-02 Completed Universit y of Vaccine Quad IM, 00:00:00 [place] Me dical Preserv and ABX Branch Free 6 MO-64 YRS SARS-COV-2 COVID-19 2022-05-02 Completed Unive rsity of VACCINE 18 YRS+, 00:00:00 [place] Me dical BIVALENT 0.5ML, IM, Branc h (MODERNA BOOSTER) SARS-COV-2 COVID-19 2021-10-18 Completed Unive rsity of PFIZER VACCINE 00:00:00 [facility] Branch Influenza Virus 2021-10-18 Completed Universit y of Vaccine Quad IM, 00:00:00 [facility] dical Preserv and ABX Branch Free 6 MO-64 YRS SARS-COV-2 COVID-19 2021-10-18 Completed Unive rsity of PFIZER VACCINE 00:00:00 [facility] Branch Influenza Virus 2021-10-18 Completed Universit y of Vaccine Quad IM, 00:00:00 [facility] dical Preserv and ABX Branch Free 6 MO-64 YRS SARS-COV-2 COVID-19 2021-10-18 Completed Unive rsity of PFIZER VACCINE 00:00:00 [facility] Branch Influenza Virus 2021-10-18 Completed Universit y of Vaccine Quad IM, 00:00:00 [facility] dical Preserv and ABX Branch Free 6 MO-64 YRS SARS-COV-2 COVID-19 2021-10-18 Completed Unive rsity of PFIZER VACCINE 00:00:00 [facility] Branch Influenza Virus 2021-10-18 Completed Universit y of Vaccine Quad IM, 00:00:00 [place] Me dical Preserv and ABX Branch Free 6 MO-64 YRS SARS-COV-2 COVID-19 2021-10-18 Completed Unive rsity of PFIZER VACCINE 00:00:00 [facility] Branch Influenza Virus 2021-10-18 Completed Universit y of Vaccine Quad IM, 00:00:00 [place] Me dical Preserv and ABX Branch Free 6 MO-64 YRS SARS-COV-2 COVID-19 2021-10-18 Completed Unive rsity of PFIZER VACCINE 00:00:00 [facility] Branch Influenza Virus 2021-10-18 Completed Universit y of Vaccine Quad IM, 00:00:00 [place] Me dical Preserv and ABX Branch Free 6 MO-64 YRS SARS-COV-2 COVID-19 2021-10-18 Completed Unive rsity of PFIZER VACCINE 00:00:00 [place] [facility] Influenza Virus 2021-10-18 Completed Universit y of Vaccine Quad IM, 00:00:00 [facility] dical Preserv and ABX Branch Free 6 MO-64 YRS SARS-COV-2 COVID-19 2021-10-18 Completed Unive rsity of PFIZER VACCINE 00:00:00 [facility] Branch Influenza Virus 2021-10-18 Completed Universit y of Vaccine Quad IM, 00:00:00 [facility] dical Preserv and ABX Branch Free 6 MO-64 YRS SARS-COV-2 COVID-19 2021-10-18 Completed Unive rsity of PFIZER VACCINE 00:00:00 [place] [facility] Influenza Virus 2021-10-18 Completed Universit y of Vaccine Quad IM, 00:00:00 [facility] dical Preserv and ABX Branch Free 6 MO-64 YRS SARS-COV-2 COVID-19 2021-10-18 Completed Unive rsity of PFIZER VACCINE 00:00:00 [place] [facility] Influenza Virus 2021-10-18 Completed Universit y of Vaccine Quad IM, 00:00:00 [facility] dical Preserv and ABX Branch Free 6 MO-64 YRS SARS-COV-2 COVID-19 2021-10-18 Completed Unive rsity of PFIZER VACCINE 00:00:00 [facility] Branch Influenza Virus 2021-10-18 Completed Universit y of Vaccine Quad IM, 00:00:00 [place] Me dical Preserv and ABX Branch Free 6 MO-64 YRS SARS-COV-2 COVID-19 2021-10-18 Completed Unive rsity of PFIZER VACCINE 00:00:00 [place] [facility] Influenza Virus 2021-10-18 Completed Universit y of Vaccine Quad IM, 00:00:00 [place] Me dical Preserv and ABX Branch Free 6 MO-64 YRS SARS-COV-2 COVID-19 2021-10-18 Completed Unive rsity of PFIZER VACCINE 00:00:00 [place] [facility] Influenza Virus 2021-10-18 Completed Universit y of Vaccine Quad IM, 00:00:00 [place] Me dical Preserv and ABX Branch Free 6 MO-64 YRS SARS-COV-2 COVID-19 2021-06-14 Completed Unive rsity of PFIZER VACCINE 00:00:00 [place] [facility] SARS-COV-2 COVID-19 2021-06-14 Completed Unive rsity of PFIZER VACCINE 00:00:00 [place] [facility] SARS-COV-2 COVID-19 2021-06-14 Completed Unive rsity of PFIZER VACCINE 00:00:00 [place] [facility] SARS-COV-2 COVID-19 2021-06-14 Completed Unive rsity of PFIZER VACCINE 00:00:00 [place] [facility] SARS-COV-2 COVID-19 2021-06-14 Completed Unive rsity of PFIZER VACCINE 00:00:00 [place] [facility] SARS-COV-2 COVID-19 2021-06-14 Completed Unive rsity of PFIZER VACCINE 00:00:00 [place] [facility] SARS-COV-2 COVID-19 2021-06-14 Completed Unive rsity of PFIZER VACCINE 00:00:00 [place] [facility] SARS-COV-2 COVID-19 2021-06-14 Completed Unive rsity of PFIZER VACCINE 00:00:00 [place] [facility] SARS-COV-2 COVID-19 2021-06-14 Completed Unive rsity of PFIZER VACCINE 00:00:00 [place] [facility] SARS-COV-2 COVID-19 2021-06-14 Completed Unive rsity of PFIZER VACCINE 00:00:00 [place] [facility] SARS-COV-2 COVID-19 2021-06-14 Completed Unive rsity of PFIZER VACCINE 00:00:00 [place] [facility] SARS-COV-2 COVID-19 2021-06-14 Completed Unive rsity of PFIZER VACCINE 00:00:00 [place] [facility] SARS-COV-2 COVID-19 2021-06-14 Completed Unive rsity of PFIZER VACCINE 00:00:00 [place] [facility] SARS-COV-2 COVID-19 2021-06-14 Completed Unive rsity of PFIZER VACCINE 00:00:00 [place] [facility] Influenza Virus 2020-07-13 Completed Universit y of Vaccine Recomb Quad 00:00:00 [place] [facility] IM, Preserv and ABX Branc h Free 18-64 YRS Influenza Virus 2020-07-13 Completed Universit y of Vaccine Recomb Quad 00:00:00 [facility], Preserv and ABX Branc h Free 18-64 YRS Influenza Virus 2020-07-13 Completed Universit y of Vaccine Recomb Quad 00:00:00 [facility], Preserv and ABX Branc h Free 18-64 YRS Influenza Virus 2020-07-13 Completed Universit y of Vaccine Recomb Quad 00:00:00 [facility], Preserv and ABX Branc h Free 18-64 YRS Influenza Virus 2020-07-13 Completed Universit y of Vaccine Recomb Quad 00:00:00 [facility], Preserv and ABX Branc h Free 18-64 YRS Influenza Virus 2020-07-13 Completed Universit y of Vaccine Recomb Quad 00:00:00 [facility], Preserv and ABX Branc h Free 18-64 YRS Influenza Virus 2020-07-13 Completed Universit y of Vaccine Recomb Quad 00:00:00 [facility], Preserv and ABX Branc h Free 18-64 YRS Influenza Virus 2020-07-13 Completed Universit y of Vaccine Recomb Quad 00:00:00 [facility], Preserv and ABX Branc h Free 18-64 YRS Influenza Virus 2020-07-13 Completed Universit y of Vaccine Recomb Quad 00:00:00 [facility], Preserv and ABX Branc h Free 18-64 YRS Influenza Virus 2020-07-13 Completed Universit y of Vaccine Recomb Quad 00:00:00 [facility], Preserv and ABX Branc h Free 18-64 YRS Influenza Virus 2020-07-13 Completed Universit y of Vaccine Recomb Quad 00:00:00 [facility], Preserv and ABX Branc h Free 18-64 YRS Influenza Virus 2020-07-13 Completed Universit y of Vaccine Recomb Quad 00:00:00 [facility], Preserv and ABX Branc h Free 18-64 YRS Influenza Virus 2020-07-13 Completed Universit y of Vaccine Recomb Quad 00:00:00 [facility], Preserv and ABX Branc h Free 18-64 YRS Influenza Virus 2020-07-13 Completed Universit y of Vaccine Recomb Quad 00:00:00 [facility], Preserv and ABX Branc h Free 18-64 YRS Twinrix (hep a/hep 2018-09-24 Completed Univer sity of b) 00:00:00 [facility] Branch Twinrix (hep a/hep 2018-09-24 Completed Univer sity of b) 00:00:00 [facility] Branch Twinrix (hep a/hep 2018-09-24 Completed Univer sity of b) 00:00:00 [facility] Branch Twinrix (hep a/hep 2018-09-24 Completed Univer sity of b) 00:00:00 [facility] Branch Twinrix (hep a/hep 2018-09-24 Completed Univer sity of b) 00:00:00 [facility] Branch Twinrix (hep a/hep 2018-09-24 Completed Univer sity of b) 00:00:00 [facility] Branch Twinrix (hep a/hep 2018-09-24 Completed Univer sity of b) 00:00:00 [facility] Twinrix (hep a/hep 2018-09-24 Completed Univer sity of b) 00:00:00 [facility] Branch Twinrix (hep a/hep 2018-09-24 Completed Univer sity of b) 00:00:00 [facility] Twinrix (hep a/hep 2018-09-24 Completed Univer sity of b) 00:00:00 [facility] Twinrix (hep a/hep 2018-09-24 Completed Univer sity of b) 00:00:00 [facility] Branch Twinrix (hep a/hep 2018-09-24 Completed Univer sity of b) 00:00:00 [facility] Branch Twinrix (hep a/hep 2018-09-24 Completed Univer sity of b) 00:00:00 [facility] Twinrix (hep a/hep 2018-09-24 Completed Univer sity of b) 00:00:00 [facility] Influenza Virus 2018-06-11 Completed Universit y of Vaccine Quad .5 mL 00:00:00 [facility] 6+ MO Branch Twinrix (hep a/hep 2018-06-11 Completed Univer sity of b) 00:00:00 [facility] Influenza Virus 2018-06-11 Completed Universit y of Vaccine Quad .5 mL 00:00:00 [facility] 6+ MO Branch Twinrix (hep a/hep 2018-06-11 Completed Univer sity of b) 00:00:00 [facility] Influenza Virus 2018-06-11 Completed Universit y of Vaccine Quad .5 mL 00:00:00 [facility] 6+ MO Branch Twinrix (hep a/hep 2018-06-11 Completed Univer sity of b) 00:00:00 [facility] Influenza Virus 2018-06-11 Completed Universit y of Vaccine Quad .5 mL 00:00:00 [facility] 6+ MO Branch Twinrix (hep a/hep 2018-06-11 Completed Univer sity of b) 00:00:00 [facility] Influenza Virus 2018-06-11 Completed Universit y of Vaccine Quad .5 mL 00:00:00 [facility] 6+ MO Branch Twinrix (hep a/hep 2018-06-11 Completed Univer sity of b) 00:00:00 [facility] Influenza Virus 2018-06-11 Completed Universit y of Vaccine Quad .5 mL 00:00:00 [facility] 6+ MO Branch Twinrix (hep a/hep 2018-06-11 Completed Univer sity of b) 00:00:00 [facility] Influenza Virus 2018-06-11 Completed Universit y of Vaccine Quad .5 mL 00:00:00 [facility] 6+ MO Branch Twinrix (hep a/hep 2018-06-11 Completed Univer sity of b) 00:00:00 [facility] Influenza Virus 2018-06-11 Completed Universit y of Vaccine Quad .5 mL 00:00:00 [facility] 6+ MO Branch Twinrix (hep a/hep 2018-06-11 Completed Univer sity of b) 00:00:00 [facility] Influenza Virus 2018-06-11 Completed Universit y of Vaccine Quad .5 mL 00:00:00 [facility] IM 6+ MO Branch Twinrix (hep a/hep 2018-06-11 Completed Univer sity of b) 00:00:00 [facility] Influenza Virus 2018-06-11 Completed Universit y of Vaccine Quad .5 mL 00:00:00 [facility] 6+ MO Branch Twinrix (hep a/hep 2018-06-11 Completed Univer sity of b) 00:00:00 [facility] Influenza Virus 2018-06-11 Completed Universit y of Vaccine Quad .5 mL 00:00:00 [facility] 6+ MO Branch Twinrix (hep a/hep 2018-06-11 Completed Univer sity of b) 00:00:00 [facility] Influenza Virus 2018-06-11 Completed Universit y of Vaccine Quad .5 mL 00:00:00 [facility] 6+ MO Branch Twinrix (hep a/hep 2018-06-11 Completed Univer sity of b) 00:00:00 [facility] Influenza Virus 2018-06-11 Completed Universit y of Vaccine Quad .5 mL 00:00:00 [facility] 6+ MO Branch Twinrix (hep a/hep 2018-06-11 Completed Univer sity of b) 00:00:00 [facility] Influenza Virus 2018-06-11 Completed Universit y of Vaccine Quad .5 mL 00:00:00 [facility] 6+ MO Branch Twinrix (hep a/hep 2018-06-11 Completed Univer sity of b) 00:00:00 [facility] Pneumococcal 2017-10-09 Completed University o f Polysaccharide, 00:00:00 [facility] ical PPSV23 (PNEUMOVAX) Branch TDAP (ADACEL) 2017-10-09 Completed University of VACCINE 00:00:00 [facility] Twinrix (hep a/hep 2017-10-09 Completed Univer sity of b) 00:00:00 [facility] Pneumococcal 2017-10-09 Completed University o f Polysaccharide, 00:00:00 [facility] ical PPSV23 (PNEUMOVAX) Branch TDAP (ADACEL) 2017-10-09 Completed University of VACCINE 00:00:00 [facility] Twinrix (hep a/hep 2017-10-09 Completed Univer sity of b) 00:00:00 [facility] Pneumococcal 2017-10-09 Completed University o f Polysaccharide, 00:00:00 [facility] ical PPSV23 (PNEUMOVAX) Branch TDAP (ADACEL) 2017-10-09 Completed University of VACCINE 00:00:00 [facility] Twinrix (hep a/hep 2017-10-09 Completed Univer sity of b) 00:00:00 [facility] Pneumococcal 2017-10-09 Completed University o f Polysaccharide, 00:00:00 [facility] ical PPSV23 (PNEUMOVAX) Branch TDAP (ADACEL) 2017-10-09 Completed University of VACCINE 00:00:00 [facility] Twinrix (hep a/hep 2017-10-09 Completed Univer sity of b) 00:00:00 [facility] Pneumococcal 2017-10-09 Completed University o f Polysaccharide, 00:00:00 [facility] ical PPSV23 (PNEUMOVAX) Branch TDAP (ADACEL) 2017-10-09 Completed University of VACCINE 00:00:00 [facility] Twinrix (hep a/hep 2017-10-09 Completed Univer sity of b) 00:00:00 [facility] Pneumococcal 2017-10-09 Completed University o f Polysaccharide, 00:00:00 [facility] PPSV23 (PNEUMOVAX) Branch TDAP (ADACEL) 2017-10-09 Completed University of VACCINE 00:00:00 [facility] Twinrix (hep a/hep 2017-10-09 Completed Univer sity of b) 00:00:00 [facility] Pneumococcal 2017-10-09 Completed University o f Polysaccharide, 00:00:00 [place] [facility] PPSV23 (PNEUMOVAX) Branch TDAP (ADACEL) 2017-10-09 Completed University of VACCINE 00:00:00 [facility] Twinrix (hep a/hep 2017-10-09 Completed Univer sity of b) 00:00:00 [facility] Pneumococcal 2017-10-09 Completed University o f Polysaccharide, 00:00:00 [facility] PPSV23 (PNEUMOVAX) Branch TDAP (ADACEL) 2017-10-09 Completed University of VACCINE 00:00:00 [facility] Twinrix (hep a/hep 2017-10-09 Completed Univer sity of b) 00:00:00 [facility] Pneumococcal 2017-10-09 Completed University o f Polysaccharide, 00:00:00 [facility] ical PPSV23 (PNEUMOVAX) Branch TDAP (ADACEL) 2017-10-09 Completed University of VACCINE 00:00:00 [facility] Twinrix (hep a/hep 2017-10-09 Completed Univer sity of b) 00:00:00 [facility] Pneumococcal 2017-10-09 Completed University o f Polysaccharide, 00:00:00 [facility] ical PPSV23 (PNEUMOVAX) Branch TDAP (ADACEL) 2017-10-09 Completed University of VACCINE 00:00:00 [facility] Twinrix (hep a/hep 2017-10-09 Completed Univer sity of b) 00:00:00 [facility] Pneumococcal 2017-10-09 Completed University o f Polysaccharide, 00:00:00 [facility] ical PPSV23 (PNEUMOVAX) Branch TDAP (ADACEL) 2017-10-09 Completed University of VACCINE 00:00:00 [facility] Twinrix (hep a/hep 2017-10-09 Completed Univer sity of b) 00:00:00 [facility] Pneumococcal 2017-10-09 Completed University o f Polysaccharide, 00:00:00 [facility] ical PPSV23 (PNEUMOVAX) Branch TDAP (ADACEL) 2017-10-09 Completed University of VACCINE 00:00:00 [facility] Twinrix (hep a/hep 2017-10-09 Completed Univer sity of b) 00:00:00 [facility] Pneumococcal 2017-10-09 Completed University o f Polysaccharide, 00:00:00 [facility] ical PPSV23 (PNEUMOVAX) Branch TDAP (ADACEL) 2017-10-09 Completed University of VACCINE 00:00:00 [facility] Twinrix (hep a/hep 2017-10-09 Completed Univer sity of b) 00:00:00 [facility] Pneumococcal 2017-10-09 Completed University o f Polysaccharide, 00:00:00 [facility] ical PPSV23 (PNEUMOVAX) Branch TDAP (ADACEL) 2017-10-09 Completed University of VACCINE 00:00:00 [facility] Twinrix (hep a/hep 2017-10-09 Completed Univer sity of b) 00:00:00 [facility] Pneumococcal 13 2017-06-05 Completed Universit y of Conjugate, PCV13 00:00:00 [facility] (Prevnar 13) Branch Influenza Virus 2017-06-05 Completed Universit y of Vaccine Quad ID 00:00:00 [facility] ical 18-64 YRS Branch Pneumococcal 13 2017-06-05 Completed Universit y of Conjugate, PCV13 00:00:00 [facility] (Prevnar 13) Branch Influenza Virus 2017-06-05 Completed Universit y of Vaccine Quad ID 00:00:00 [facility] ical 18-64 YRS Branch Pneumococcal 13 2017-06-05 Completed Universit y of Conjugate, PCV13 00:00:00 [facility] (Prevnar 13) Branch Influenza Virus 2017-06-05 Completed Universit y of Vaccine Quad ID 00:00:00 [facility] ica 18-64 YRS Branch Pneumococcal 13 2017-06-05 Completed Universit y of Conjugate, PCV13 00:00:00 [facility] (Prevnar 13) Branch Influenza Virus 2017-06-05 Completed Universit y of Vaccine Quad ID 00:00:00 [facility] 18-64 YRS Branch Pneumococcal 13 2017-06-05 Completed Universit y of Conjugate, PCV13 00:00:00 [place] [facility] (Prevnar 13) Branch Influenza Virus 2017-06-05 Completed Universit y of Vaccine Quad ID 00:00:00 [facility] 18-64 YRS Branch Pneumococcal 13 2017-06-05 Completed Universit y of Conjugate, PCV13 00:00:00 [place] [facility] (Prevnar 13) Branch Influenza Virus 2017-06-05 Completed Universit y of Vaccine Quad ID 00:00:00 [facility] 18-64 YRS Branch Pneumococcal 13 2017-06-05 Completed Universit y of Conjugate, PCV13 00:00:00 [facility] (Prevnar 13) Branch Influenza Virus 2017-06-05 Completed Universit y of Vaccine Quad ID 00:00:00 [facility] ica 18-64 YRS Branch Pneumococcal 13 2017-06-05 Completed Universit y of Conjugate, PCV13 00:00:00 [place] [facility] (Prevnar 13) Branch Influenza Virus 2017-06-05 Completed Universit y of Vaccine Quad ID 00:00:00 [facility] ica 18-64 YRS Branch Pneumococcal 13 2017-06-05 Completed Universit y of Conjugate, PCV13 00:00:00 [place] [facility] (Prevnar 13) Branch Influenza Virus 2017-06-05 Completed Universit y of Vaccine Quad ID 00:00:00 [facility] ical 18-64 YRS Branch Pneumococcal 13 2017-06-05 Completed Universit y of Conjugate, PCV13 00:00:00 [place] [facility] (Prevnar 13) Branch Influenza Virus 2017-06-05 Completed Universit y of Vaccine Quad ID 00:00:00 [facility] ical 18-64 YRS Branch Pneumococcal 13 2017-06-05 Completed Universit y of Conjugate, PCV13 00:00:00 [place] [facility] (Prevnar 13) Branch Influenza Virus 2017-06-05 Completed Universit y of Vaccine Quad ID 00:00:00 [facility] ical 18-64 YRS Branch Pneumococcal 13 2017-06-05 Completed Universit y of Conjugate, PCV13 00:00:00 [place] [facility] (Prevnar 13) Branch Influenza Virus 2017-06-05 Completed Universit y of Vaccine Quad ID 00:00:00 [facility] 18-64 YRS Branch Pneumococcal 13 2017-06-05 Completed Universit y of Conjugate, PCV13 00:00:00 [place] [facility] (Prevnar 13) Branch Influenza Virus 2017-06-05 Completed Universit y of Vaccine Quad ID 00:00:00 [facility] 18-64 YRS Branch Pneumococcal 13 2017-06-05 Completed Universit y of Conjugate, PCV13 00:00:00 [place] [facility] (Prevnar 13) Branch Influenza Virus 2017-06-05 Completed Universit y of Vaccine Quad ID 00:00:00 [facility] 18-64 YRS Branch Vital Signs Vital Name Observation Time Observation Value Comments Source Systolic blood 2022-05-02 21:37:00 134 mm[Hg] Univer sity of pressure [facility] Diastolic blood 2022-05-02 21:37:00 85 mm[Hg] Unive rsity of pressure [facility] Heart rate 2022-05-02 21:36:00 86 /min [facility] Body temperature 2022-05-02 21:36:00 36.44 Neli [facility] height 2022-05-02 21:36:00 170.2 cm [facility] Body weight 2022-05-02 21:36:00 63.504 kg [facility] BMI 2022-05-02 21:36:00 21.93 kg/m2 [facility] Systolic blood 2021-10-18 21:08:00 140 mm[Hg] Univer sity of pressure [facility] Diastolic blood 2021-10-18 21:08:00 87 mm[Hg] Unive rsity of pressure [facility] Heart rate 2021-10-18 21:08:00 84 /min [facility] Body temperature 2021-10-18 21:05:00 36.78 Neli [facility] Respiratory rate 2021-10-18 21:05:00 16 /min [facility] Body height 2021-10-18 21:05:00 167.6 cm [facility] Body weight 2021-10-18 21:05:00 64.093 kg [facility] BMI 2021-10-18 21:05:00 22.81 kg/m2 [facility] Procedures Procedure Date / Time Performing Clinician Source Performed FLU VACC ([id number]), 6 2022-05-02 22:01:31 Sobeida Pollard [facility] MO-64 YRS, .5ML, IM, Medical [facility] QUAD (FLUCELVAX) SARS-COV-2 COVID-19 2022-05-02 22:01:31 Sobeida Pollard [facility] VACCINE 18 YRS+, Medical Branch BIVALENT 0.5ML, IM (MODERNA BOOSTER) AUTHORIZATION FOR 2022-01-15 05:01:00 Doctor Unassigned, No [facility] RELEASE OF [facility] Name Medical Branch FLU VACC ([id number]), 2021-10-18 23:00:52 [facility] 2-64 YRS, .5ML, IM, QUAD Medical Branch (FLUCELVAX) AUTHORIZATION FOR 2021-09-21 06:01:00 Doctor Unassigned, No [facility] Name Medical Branch Encounters Start End Encounter Admission Attending Care Care Encounter Source Date/Time Date/Time Type Type Clinicians Facility Department ID 2022-10-31 2022-10-31 Outpatient R CHRIS LINDER [facility] [id number] [facility] 13:30:00 13:30:[id number] [facility] 2022-05-15 2022-05-15 Outpatient R ABRAMCHRIS [facility] [id number] Univers 00:00:00 00:00:[id number] [facility] 2022-05-15 2022-05-15 Outpatient R ABRAMCHRIS ASH [facility] [id number] Univers 00:00:00 00:00:[address] [facility] 2022-05-09 2022-05-09 Outpatient Mia LOPEZSHEBA [facility] [id number] Univers 14:30:00 14:30:[id number] [facility] 2022-05-05 2022-05-[address] [facility] [id number] Univers 00:00:00 00:00:00 (Out) Thierno Adamson ICAL [id number] ity of SCIENCES 4.2.7.2.686 Angel as BLDG [id number] [facility] 020 Branch 2022-05-03 2022-05-03 Telephone RICHARD LinderIT [id number] Univers 00:00:00 00:00:00 [facility] HEALTH [id number] i ty [id number] [id number] [place] 2022-05-02 2022-05-02 Office RICHARD LinderIT [id number] Univers 16:00:00 16:30:00 Visit [facility] HEALTH [id number] i [id number] [id number] [address] 2022-05-02 2022-05-02 Outpatient Mia LINDERCHRIS [facility] [id number] Univers 16:00:00 16:00:[id number] [facility] 2022-05-02 2022-05-02 Outpatient Mia LINDERCHRIS [facility] [id number] Univers 16:00:00 16:00:[address] [facility] 2022-04-24 2022-04-24 Outpatient R CORINNE [facility] [id number] Univers 09:00:00 09:00:[id number] [facility] 2022-04-24 2022-04-24 Outpatient R CORINNE, [facility] [id number] Univers 09:00:00 09:00:[address] [facility] 2022-04-21 2022-04-21 [facility] [id number] Univers 00:00:00 00:00:00 (Out) Lashonda Aguilar PRIMARY [id number] ity of CARE 4.2.7.2.686 Angeltiffany hardwick SATISH [id number] [address] 2022-04-20 2022-04-20 Outpatient R [facility] [id number] [id number] Univers 11:00:00 11:00:[id number] [facility] 2022-04-20 2022-04-20 Outpatient R JACKELYN [facility] [id number] Univers 11:00:00 11:00:[address] [facility] 2022-04-18 2022-04-18 Outpatient R CHRIS LINDER [facility] [id number] Univers 14:30:00 14:30:[id number] [facility] 2022-04-18 2022-04-18 Outpatient R CHRIS LINDER [facility] [id number] Univers 14:30:00 14:30:[address] [facility] 2022-04-14 2022-04-14 Outpatient R [facility] [id number] Univers 09:50:00 09:50:[id number] [facility] 2022-04-07 2022-04-07 Outpatient R [facility] [id number] Univers 10:10:00 10:10:[id number] [facility] 2022-04-07 2022-04-07 Outpatient R ELENA LORA [facility] [id number] Univers 10:10:00 10:10:[address] [facility] 2022-04-04 2022-04-04 Outpatient R CHRIS LINDER [facility] [id number] Univers 13:00:00 13:00:[id number] [facility] 2022-04-04 2022-04-04 Outpatient R CHRIS LINDER [facility] [id number] Univers 13:00:00 13:00:[address] [facility] 2022-03-29 2022-03-29 Outpatient R [facility] [id number] Univers 08:20:00 08:20:[id number] [facility] 2022-03-29 2022-03-29 Outpatient R RONALD [facility] [id number] Univers 08:20:00 08:20:[address] [facility] 2022-03-06 2022-03-06 [facility] [id number] Univers 10:30:00 10:30:00 [facility] [id number] [facility] 2022-03-06 2022-03-06 Outpatient [facility] [id number] Univers 10:30:00 10:30:00 [facility] 2022-01-25 2022-01-25 Shazia Linder UNIVERSIT [id number] Univers 00:00:00 00:00:00 Chris Wayna HEALTH 350.1.13.10 i [place] [id number] [address] 2022-01-23 2022-01-23 RICHARD CarranzaIT [id number] Univers 00:00:00 00:00:00 Chris S HEALTH 350.1.13.10 i [place] [id number] [address] 2022-01-15 2022-01-15 Orders Doctor RUPESH [id number] Univers 00:00:00 00:00:00 Only Unassigned, NIGEL 350.1.13.10 ity of [place] [facility] 4.2.7.2.686 Angel as [id number] [address] 2021-12-07 2021-12-[address] [facility] [id number] Univers 00:00:00 00:00:00 Mayra SHAUNA 350.1.13.10 i ty [place] PROF[place] [id number] Wy dic[address] 2021-11-10 2021-11-10 Outpatient R JEROME ONEIL [facility] [id number] Univers 13:45:00 13:45:00 [id number] [facility] [place] 2021-10-20 2021-10-20 Telephone CORDELL Linder [id number] Univers 00:00:00 00:00:00 [place] Wayna [facility] 350.1.13.10 i ty of [place] [id number] [place] [id number] [place] 2021-10-18 2021-10-18 Office CORDELL Linder [id number] Univers 15:30:00 16:03:04 Visit [facility] 350.1.13.10 i ty [place] [id number] [address] 2021-10-18 2021-10-18 Outpatient R CHRIS LINDER [facility] [id number] Univers 15:30:00 16:03:[address] [facility] 2021-09-22 2021-09-22 Outpatient Mia SUN [facility] [id number] Univers 10:30:00 10:30:[address] [facility] 2021-09-21 2021-09-21 Orders Doctor GODDARD [id number] [id number] Univers 00:00:00 00:00:00 Only Unassigned, NIGEL 350.1.13.10 ity of [place] [facility] 4.2.7.2.686 Angel as [id number] [address] 2021-08-22 2021-08-22 Outpatient CHRIS ALFONSO [facility] [id number] [facility] 00:00:00 00:00:00 CHRIS LINDER [facility] 2020-12-07 2020-12-07 Office CORDELL Linder [id number] 14:03:43 15:00:48 Visit [facility] 350.1.13.10 [facility] 4.2.7.2.686 [id number] Results This patient has no known results.
--- NOTE | 2022-05-06 12:39 | EDPHYS ---
Physician Documentation [facility] Name: Tianna Costello Age: 46 yrs Sex: Female : 1975 Arrival Date: 05/06/2022 Time: 12:13 Bed DIS1 Private MD: ED Physician Akil Adhikari HPI: 05/06 12:39 This 46 yrs old Black Female presents to ER via Ambulatory with complaints of Redness jmm of Eye. 12:39 left eye redness. Onset: The symptoms/episode began/occurred gradually, 3 day(s) ago. jmm Duration: the symptoms are continuous. Aggravated by rubbing. Associated signs and symptoms: Pertinent negatives: fever, runny nose. It is unknown whether or not the patient has had similar symptoms in the past. Multiple family members have similar symptoms. . Historical: - Allergies: 12:35 PENICILLINS; hb - Home Meds: 12:35 Genvoya Oral [Active]; Sertraline [Active]; Abilify [Active]; gabapentin [Active]; hb - PMHx: 12:35 Anxiety; Asthma; HIV positive; hb - PSHx: 12:35 section; hb - Immunization history:: Adult Immunizations up to date. - Social history:: Smoking status: Patient reports the use of cigarette tobacco products, smokes one-half pack cigarettes per day. ROS: 12:39 Constitutional: Negative for fever, chills, and weight loss. jmm 12:39 Eyes: Positive for redness. 12:39 All other systems are negative. Exam: 12:39 Constitutional: This is a well developed, well nourished patient who is awake, alert, jmm and in no acute distress. Head/Face: atraumatic. 12:39 ENT: Moist Mucus Membranes Neck: Trachea midline, Supple Chest/axilla: Normal chest wall appearance and motion. Cardiovascular: Regular rate and rhythm. No edema appreciated Respiratory: Normal respirations, no respiratory distress appreciated Abdomen/GI: Non distended Back: Normal ROM Skin: General appearance color normal MS/ Extremity: Moves all extremities, no obvious deformities appreciated, no edema noted to the lower extremities Neuro: Awake and alert Psych: Behavior is normal, Mood is normal, Patient is cooperative and pleasant 12:39 Eyes: Conjunctiva: injected, in the left eye. 12:39 Eyes: Extraocular movements: intact throughout. Vital Signs: 12:34 BP 148 / 88; Pulse 84; Resp 16; Temp 98.2; Pulse Ox 100% ; Weight 63.5 kg; Height 5 ft. hb 7 in. (170.18 cm); Pain 6/10; 12:34 Body Mass Index 21.93 (63.50 kg, 170.18 cm) hb MDM: 12:39 Patient medically screened. [facility] 15:34 Data reviewed: vital signs, nurses notes. Counseling: I had a detailed discussion with [facility] the patient and/or guardian regarding: the historical points, exam findings, and any diagnostic results supporting the discharge/admit diagnosis, the need for outpatient follow up, to return to the emergency department if symptoms worsen or persist or if there are any questions or concerns that arise at home. Administered Medications: No medications were administered Disposition: 15:38 Co-signature as Attending Physician, Akil Adhikari MD. rn Disposition Summary: 05/06/22 12:39 Discharge Ordered Location: Home [facility] Condition: Stable [facility] Diagnosis - Other acute conjunctivitis [facility] Followup: [facility] - With: Private Physician - When: 2 - 3 days - Reason: Recheck today's complaints, Continuance of care, Re-evaluation by your physician Discharge Instructions: - Discharge Summary Sheet [facility] Forms: - Medication Reconciliation Form [facility] - Thank You Letter [facility] - Antibiotic Education [facility] - Prescription Opioid Use [facility] Prescriptions: - Erythromycin 5 mg/gram (0.5 %) Ophthalmic Ointment - apply 1 centimeter by OPHTHALMIC route 2-3 times daily for 7 days; 1 tube; [facility] Refills: 0, Product Selection Permitted Signatures: Ayaz Cloud PA PA [facility] Akil Adhikari MD MD rn Francine Perez RN RN hb
--- NOTE | 2022-05-06 12:39 | ER ---
Nurse's Notes [facility] Name: Tianna Costello Age: 46 yrs Sex: Female : 1975 Arrival Date: 05/06/2022 Time: 12:13 Bed DIS1 Private MD: Diagnosis: Other acute conjunctivitis Presentation: 05/06 12:34 Chief complaint: Left eye pain and redness x 2 days. Coronavirus screen: At this time, hb the client does not indicate any symptoms associated with coronavirus-19. Ebola Screen: No symptoms or risks identified at this time. Initial Sepsis Screen: Does the patient meet any 2 criteria? No. Patient's initial sepsis screen is negative. Does the patient have a suspected source of infection? No. Patient's initial sepsis screen is negative. Risk Assessment: Do you want to hurt yourself or someone else? Patient reports no desire to harm self or others. Onset of symptoms was May 05, 2022. 12:34 Method Of Arrival: Ambulatory hb 12:34 Acuity: DAVID 4 hb Triage Assessment: 12:36 General: Appears in no apparent distress. Behavior is calm, cooperative. Pain: Pain hb currently is 6 out of 10 on a pain scale. EENT: left eye redness. Neuro: Level of Consciousness is awake, alert, obeys commands, Oriented to person, place, time, situation. Cardiovascular: Patient's skin is warm and dry. Respiratory: Respiratory effort is even, unlabored, Respiratory pattern is regular, symmetrical. Historical: - Allergies: 12:35 PENICILLINS; hb - Home Meds: 12:35 Genvoya Oral [Active]; Sertraline [Active]; Abilify [Active]; gabapentin [Active]; hb - PMHx: 12:35 Anxiety; Asthma; HIV positive; hb - PSHx: 12:35 section; hb - Immunization history:: Adult Immunizations up to date. - Social history:: Smoking status: Patient reports the use of cigarette tobacco products, smokes one-half pack cigarettes per day. Screenin:37 Abuse screen: Denies threats or abuse. Denies injuries from another. Nutritional hb screening: No deficits noted. Tuberculosis screening: No symptoms or risk factors identified. Fall Risk None identified. Assessment: 12:37 General: SEE TRIAGE ASSESSMENT. hb 12:54 Reassessment: No changes from previously documented assessment. bm7 Vital Signs: 12:34 BP 148 / 88; Pulse 84; Resp 16; Temp 98.2; Pulse Ox 100% ; Weight 63.5 kg; Height 5 ft. hb 7 in. (170.18 cm); Pain 6/10; 12:34 Body Mass Index 21.93 (63.50 kg, 170.18 cm) hb ED Course: 12:13 Patient arrived in ED. rg4 12:24 Ayaz Cloud PA is PHCP. [facility] 12:24 Akil Adhikari MD is Attending Physician. [facility] 12:35 Triage completed. hb 12:35 Arm band placed on. hb 12:37 Patient has correct armband on for positive identification. hb 12:54 No provider procedures requiring assistance completed. Patient did not have IV access bm7 during this emergency room visit. Administered Medications: No medications were administered Medication: 12:37 VIS not applicable for this client. hb Outcome: 12:39 Discharge ordered by MD. [facility] 12:54 Discharged to home ambulatory, with family. bm7 12:54 Condition: good 12:54 Discharge instructions given to patient, family, Instructed on discharge instructions, follow up and referral plans. medication usage, Demonstrated understanding of instructions, follow-up care, medications, Prescriptions given X 1. 12:55 Patient left the ED. bm7 Signatures: Ayaz Cloud PA PA jmm Baxter, Heather, RN RN Lavonne Strange rg4 Lakisha Restrepo, RN RN bm7 Corrections: (The following items were deleted from the chart) 12:37 12:34 Resp 16bpm; Temp 98.2F; 63.5 kg; Height 5 ft. 7 in.; BMI: 21.9; Pain 6/10; hb hb
[2022-05-07 21:54] VITALS: BP 148/88; TEMP 98.2; O2SAT 100
== END 2022-05-06 12:55 | disposition home or self-care (01) ==
LOC: ER 12:09
DX: H10.30 Unspecified acute conjunctivitis, unspecified eye (principal); F17.210 Nicotine dependence, cigarettes, uncomplicated; Z21 Asymptomatic human immunodeficiency virus [HIV] infection status; Z88.0 Allergy status to penicillin
CPT/HCPCS: 99282

== ENCOUNTER 2022-06-29 11:32 | Emergency (ER) | payer OTHER ==
--- OUTSIDE RECORDS SUMMARY | 2022-06-29 11:39 | XMS REPORT | Continuity of Care Document ---
:1975 Author Organization [facility] t Address [address] [place] [address] Care Team Providers Name Role Phone YULIANA MONTALVO Primary Care Physician Unavailable FLORENCIO STEINER Attending Clinician Unavailable YULIANA MONTALVO Attending Clinician Unavailable YULIANA MONTALVO Attending Clinician Unavailable CHRIS LINDER Attending Clinician Unavailable CHRIS LINDER Attending Clinician Unavailable MCKINLEY MONTERO Attending Clinician Unavailable [facility] Attending Clinician Unavailable Doctor Unassigned, Sophia Attending Clinician Unavailable TIFFANIE PICHARDO Attending Clinician Unavailable Florencio Steiner MD Attending Clinician ESTEVAN SUN Attending Clinician Unavailable Thierno Wade DO Attending Clinician Chris Linder MD Attending Clinician AkinLashonda Elizabeth Attending Clinician [phone] DARIA HAYDEN Attending Clinician Unavailable ELENA LORA Attending Clinician Unavailable ELENA LORA Attending Clinician Unavailable RENNY CARDENAS Attending Clinician Unavailable Mayra Viveros MD Attending Clinician JEROME ONEIL Attending Clinician Unavailable KEIKO RODRÍGUEZ Attending Clinician Unavailable Vaccine, Gal [facility] Attending Clinician Unavailable JERO CLAUDIO Attending Clinician Unavailable MORRIS LOPEZ Attending Clinician Unavailable SANAM HUANG Attending Clinician Unavailable SUZANNE BADILLO Attending Clinician Unavailable SALLIE TINAJERO Attending Clinician Unavailable Rick PEÑA, Faby Lorenzana Attending Clinician Unavailable Irma PRADHAN, Mckinley Richter Attending Clinician Lalo WHHOLLYPYanelis Attending Clinician Res-Colpo/Leep, [facility] Attending Clinician Unavailable Tamy PEÑA, Best Woodruff Attending Clinician Unavailable Rafael PEÑA, Dang Woodruff Attending Clinician Unavailable LASHONDA MORAN Attending Clinician Unavailable FLORENCIO STEINER Admitting Clinician Unavailable Payers Payer Name Policy Type Policy Number Effective Date Expiration Date S catalino [facility] D[facility] [id number] 2022 COMP HMO D SNP 00:00:00 MEDICAID [facility] [id number] 2022 00:00:00 [facility] [id number] 2021 PLUS 00:00:00 MEDICARE PART A [id number] 2019 2021 \T\ B 00:00:00 00:00:00 [facility] [id number] 2020 [facility] 00:00:00 PLUS Problems Condition Condition Condition Status Onset Resolution Last Treating Co mments Source Name Details Category Date Date Treatment Clinician Date 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 +hpv Well woman Well woman Disease Active U nivers exam exam 5-07 ity of 00:: [place] [facility] Breast Breast Disease Active Univers pain pain 5-07 ity of 00:: [address] Branch Obesity Obesity Disease Active Univers (BMI (BMI 5-07 ity of 30-39.9) 30-39.9) 00:00: [place] [facility] AIDS AIDS Disease Active Univers 6-09 ity of 00:00: [address] Branch Pneumonia Pneumonia Disease Active Uni vers 5-17 ity of 00:00: [address] Branch Allergies, Adverse Reactions, Alerts Allergy Allergy [...] Date Stop Date Quantity Comments Source History SDOH [facility] o f Alcohol Std Drinks [facility] History [facility] o f Alcohol Binge [facility] Exposure to 2022-06-10 2022-06-20 Not sure University of SARS-CoV-2 (event) 00:00:00 09:26:00 [facility] Cigarettes smoked 2022-06-20 2022-06-20 Univers ity of current (pack per 00:00:00 00:00:00 [facility] ) - Reported Branch Cigarette 2022-06-20 2022-06-20 University of pack-years 00:00:00 00:00:00 [facility] Tobacco use and 2022-06-20 2022-06-20 Former smokeless Uni versity of exposure 00:00:00 00:00:00 tobacco user [facility] Alcohol intake 2022-06-20 2022-06-20 Current University of 00:00:00 00:00:00 [facility]drinker of [facility] (finding[facility] Branch Tobacco Comment 2022-05-02 2022-05-02 3-5 per day Universi ty of 00:00:00 00:00:00 [facility] Alcohol Comment 2016-12-27 2016-12-27 Occasional wine Univ ersity of 00:00:00 00:00:00 [facility] History of tobacco 2016-09-29 User of smokeless University of use 00:00:00 tobacco [facility] Sex [birth year] At [birth year] Universit y of 00:00:00 00:00:00 [facility] Smoking Status Start Date Stop Date Source Occasional tobacco smoker 2022-06-20 00:00:00 Un iversity of [facility] Medications Ordered Filled Start Stop Current Ordering Indication Dosage Frequency Signature Comments Components Source Medication Medication Date Date Medication? Clinician (SIG) Name Name peg-electro 2021-08- Yes Take as Un desean lyte soln 0-04 10-05 Directed ity o f 236-22.74-6 00:00: 04:59 [place] .74 -5.86 00 :00 Medical gram Branch solution peg-electro 2021-08- Yes Take as Un des[facility] lyte soln 0-04 10-05 Directed ity o f 236-22.74-6 00:00: 04:59 [place] .74 -5.86 00 :00 Medical gram Branch solution peg-electro 2021-08- Yes Take as Un des[facility] lyte soln 0-04 10-05 Directed ity o f 236-22.74-6 00:00: 04:59 [place] .74 -5.86 00 :00 Medical gram Branch solution peg-electro 2021-08- Yes Take as Un desean lyte soln 0-04 10-05 Directed ity o f 236-22.74-6 00:00: 04:59 [place] .74 -5.86 00 :00 Medical gram Branch solution peg-electro 2021-08- Yes Take as Un desean lyte soln 0-04 10-05 Directed ity o f 236-22.74-6 00:00: 04:59 [place] .74 -5.86 00 :00 Medical gram Branch solution polyethylen 2021-08- No TAKE Un desean e 0-06-20 DIRECTED ity of glycol-elec 00:00: 00:00 [place] tro[place] 00 :00 Medical 420 gram Branch solution polyethylen 2021-08- No TAKE Un desean e 0-04 -08 DIRECTED ity of glycol-elec 00:00: 00:00 [place] 00 :00 Medical 420 gram Branch solution erythromyci Yes Univer s n 5 mg/gram 9-24 ity of (0.5 %) 00:00: [place] ophthalmic 00 Medical ointment Branch erythromyci Yes Univer s n 5 mg/gram 9-24 ity of (0.5 %) 00:00: [place] ophthalmic 00 Medical ointment Branch erythromyci Yes Univer s n 5 mg/gram 9-24 ity of (0.5 %) 00:00: [place] ophthalmic 00 Medical ointment Branch erythromyci Yes Univer s n 5 mg/gram 9-24 ity of (0.5 %) 00:00: [place] ophthal[facility] 00 Medical ointment Branch erythromyci Yes Univer s n 5 mg/gram 9-24 ity of (0.5 %) 00:00: [place] [facility] 00 Medical ointment Branch elviteg-cob Yes [id number] 1{tbl} Take 1 Univers -emtri-teno 9-20 tablet by ity of f ALAFEN 00:00: mouth [place] ([facility]) 00 every Medical 150-150-200 morning. Bran ch -10 mg per tablet elviteg-cob Yes [id number] 1{tbl} Take 1 Univers -emtri-teno 9-20 tablet by ity of f ALAFEN 00:00: mouth [place] ([facility]) 00 every Medical 150-150-200 morning. Bran ch -10 mg per tablet elviteg-cob Yes [id number] 1{tbl} Take 1 Univers -emtri-teno 9-20 tablet by ity of f ALAFEN 00:00: mouth [place] ([facility]) 00 every Medical 150-150-200 morning. Bran ch -10 mg per tablet traMADoL 50 Yes 2745 TAKE 1 Univ ers mg tablet 9-20 TABLET BY ity o f 00:00: MOUTH [place] 00 EVERY 8 Medical HOURS Branch NEEDED FOR PAIN Indication s: chronic pain gabapentin Yes [id number] 300mg Take 1 Univers 300 mg 9-20 capsule by ity of capsule 00:00: mouth in [place] 00 the Medical morning Branch and 1 capsule at noon and 1 capsule in the evening. elviteg-cob Yes [id number] 1{tbl} Take 1 Univers -emtri-teno 9-20 tablet by ity of f ALAFEN 00:00: mouth [place] ([facility]) 00 every Medical 150-150-200 morning. Bran ch -10 mg per tablet traMADoL 50 2021-0 Yes 2745 TAKE 1 Univ ers mg tablet 9-20 TABLET BY ity o f 00:00: MOUTH [place] 00 EVERY 8 Medical HOURS Branch NEEDED FOR PAIN Indication s: chronic pain gabapentin 2021-0 Yes [id number] 300mg Take 1 Univers 300 mg 9-20 capsule by ity of capsule 00:00: mouth in [place] 00 the Medical morning Branch and 1 capsule at noon and 1 capsule in the evening. elviteg-cob 2021-0 Yes [id number] 1{tbl} Take 1 Univers -emtri-teno 9-20 tablet by ity of f ALAFEN 00:00: mouth [place] ([facility]) every Medical 150-150-200 morning. Bran ch -10 mg per tablet traMADoL 50 2021-0 Yes 2745 TAKE 1 Univ ers mg tablet 9-20 TABLET BY ity o f 00:00: MOUTH [place] EVERY 8 Medical HOURS Branch NEEDED FOR PAIN Indication s: chronic pain gabapentin 2021-0 Yes [id number] 300mg Take 1 Univers 300 mg 9-20 capsule by ity of capsule 00:00: mouth in [place] 00 the Medical morning Branch and 1 capsule at noon and 1 capsule in the evening. elviteg-cob 2021-0 Yes [id number] 1{tbl} Take 1 Univers -emtri-teno 9-20 tablet by ity of f ALAFEN 00:00: mouth [facility]) every Medical 150-150-200 morning. Bran ch -10 mg per tablet traMADoL 50 2021-0 Yes 2745 TAKE 1 Univ ers mg tablet 9-20 TABLET BY ity o f 00:00: MOUTH [place] 00 EVERY 8 Medical HOURS Branch NEEDED FOR PAIN Indication s: chronic pain gabapentin 2021-0 Yes [id number] 300mg Take 1 Univers 300 mg 9-20 capsule by ity of capsule 00:00: mouth in [place] 00 the Medical morning Branch and 1 capsule at noon and 1 capsule in the evening. elviteg-cob 2021-0 Yes [id number] 1{tbl} Take 1 Univers -emtri-teno 9-20 tablet by ity of f ALAFEN 00:00: mouth [place] ([facility]) 00 every Medical 150-150-200 morning. Bran ch -10 mg per tablet traMADoL 50 2021-0 Yes 2745 TAKE 1 Univ ers mg tablet 9-20 TABLET BY ity o f 00:00: MOUTH [place] 00 EVERY 8 Medical HOURS Branch NEEDED FOR PAIN Indication s: chronic pain gabapentin 2021-0 Yes [id number] 300mg Take 1 Univers 300 mg 9-20 capsule by ity of capsule 00:00: mouth in [place] 00 the Medical morning Branch and 1 capsule at noon and 1 capsule in the evening. elviteg-cob 2021-0 Yes [id number] 1{tbl} Take 1 Univers -emtri-teno 9-20 tablet by ity of f ALAFEN 00:00: mouth [place] ([facility]) 00 every Medical 150-150-200 morning. Bran ch -10 mg per tablet traMADoL 50 2021-0 Yes 2745 TAKE 1 Univ ers mg tablet 9-20 TABLET BY ity o f 00:00: MOUTH [place] 00 EVERY 8 Medical HOURS Branch NEEDED FOR PAIN Indication s: chronic pain gabapentin 2021-0 Yes [id number] 300mg Take 1 Univers 300 mg 9-20 capsule by ity of capsule 00:00: mouth in [place] the Medical morning Branch and 1 capsule at noon and 1 capsule in the evening. elviteg-cob 2021-0 Yes [id number] 1{tbl} Take 1 Univers -emtri-teno 9-20 tablet by ity of f ALAFEN 00:00: mouth [place] ([facility]) 00 every Medical 150-150-200 morning. Bran ch -10 mg per tablet traMADoL 50 2021-0 Yes 2745 TAKE 1 Univ ers mg tablet 9-20 TABLET BY ity o f 00:00: MOUTH [place] 00 EVERY 8 Medical HOURS Branch NEEDED FOR PAIN Indication s: chronic pain gabapentin 2021-0 Yes [id number] 300mg Take 1 Univers 300 mg 9-20 capsule by ity of capsule 00:00: mouth in [place] 00 the Medical morning Branch and 1 capsule at noon and 1 capsule in the evening. elviteg-cob 2021-0 Yes [id number] 1{tbl} Take 1 Univers -emtri-teno 9-20 tablet by ity of f ALAFEN 00:00: mouth [place] ([facility]) 00 every Medical 150-150-200 morning. Bran ch -10 mg per tablet traMADoL 50 2021-0 Yes 2745 TAKE 1 Univ ers mg tablet 9-20 TABLET BY ity o f 00:00: MOUTH [place] 00 EVERY 8 Medical HOURS Branch NEEDED FOR PAIN Indication s: chronic pain gabapentin 2021-0 Yes [id number] 300mg Take 1 Univers 300 mg 9-20 capsule by ity of capsule 00:00: mouth in [place] 00 the Medical morning Branch and 1 capsule at noon and 1 capsule in the evening. elviteg-cob 2021-0 Yes [id number] 1{tbl} Take 1 Univers -emtri-teno 9-20 tablet by ity of f ALAFEN 00:00: mouth [place] ([facility]) 00 every Medical 150-150-200 morning. Bran ch -10 mg per tablet traMADoL 50 2021-0 Yes 2745 TAKE 1 Univ ers mg tablet 9-20 TABLET BY ity o f 00:00: MOUTH [place] 00 EVERY 8 Medical HOURS Branch NEEDED FOR PAIN Indication s: chronic pain gabapentin 2021-0 Yes [id number] 300mg Take 1 Univers 300 mg 9-20 capsule by ity of capsule 00:00: mouth in [place] the Medical morning Branch and 1 capsule at noon and 1 capsule in the evening. elviteg-cob 2021-0 Yes [id number] 1{tbl} Take 1 Univers -emtri-teno 9-20 tablet by ity of f ALAFEN 00:00: mouth [place] ([facility]) 00 every Medical 150-150-200 morning. Bran ch -10 mg per tablet traMADoL 50 2021-0 Yes 2745 TAKE 1 Univ ers mg tablet 9-20 TABLET BY ity o f 00:00: MOUTH [place] 00 EVERY 8 Medical HOURS Branch NEEDED FOR PAIN Indication s: chronic pain gabapentin 2021-0 Yes [id number] 300mg Take 1 Univers 300 mg 9-20 capsule by ity of capsule 00:00: mouth in [place] 00 the Medical morning Branch and 1 capsule at noon and 1 capsule in the evening. ARIPiprazol 2021-0 Yes 10mg Take 10 mg Univers e 10 mg 04-19 by mouth ity of tablet 00:00: at [place] [address] bedtime. Medical Branch traZODone 2021-0 Yes 50mg Take 50 mg Un desean 50 mg 04-19 by mouth ity of tablet 00:00: at [place] [address] bedtime. Medical Branch SERTraline 2022-0 Yes 100mg Take 100 Un desean 100 mg 9-07 mg by ity of tablet 00:00: mouth in [place] the Medical morning. Branch ARIPiprazol 2-0 Yes 10mg Take 10 mg Univers e 10 mg 9-07 by mouth ity of tablet 00:00: at [place] [address] bedtime. Medical Branch traZODone 2022-0 Yes 50mg Take 50 mg Un desean 50 mg 9-07 by mouth ity of tablet 00:00: at [place] [address] bedtime. Medical Branch SERTraline 2-0 Yes 100mg Take 100 Un desean 100 mg 9-07 mg by ity of tablet 00:00: mouth in [place] the Medical morning. Branch ARIPiprazol 2-0 Yes 10mg Take 10 mg Univers e 10 mg 9-07 by mouth ity of tablet 00:00: at [place] [address] bedtime. Medical Branch traZODone 2-0 Yes 50mg Take 50 mg Un desean 50 mg 9-07 by mouth ity of tablet 00:00: at [place] [address] bedtime. Medical Branch SERTraline 2-0 Yes 100mg Take 100 Un desean 100 mg 9-07 mg by ity of tablet 00:00: mouth in [place] the Medical morning. Branch ARIPiprazol 2-0 Yes 10mg Take 10 mg Univers e 10 mg 9-07 by mouth ity of tablet 00:00: at [place] [address] bedtime. Medical Branch traZODone 2022-0 Yes 50mg Take 50 mg Un desean 50 mg 9-07 by mouth ity of tablet 00:00: at [place] [address] bedtime. Medical Branch SERTraline 2-0 Yes 100mg Take 100 Un desean 100 mg 9-07 mg by ity of tablet 00:00: mouth in [place] the Medical morning. Branch ARIPiprazol 2-0 Yes 10mg Take 10 mg Univers e 10 mg 9-07 by mouth ity of tablet 00:00: at [place] [address] bedtime. Medical Branch traZODone 2022-0 Yes 50mg Take 50 mg Un desean 50 mg 9-07 by mouth ity of tablet 00:00: at [place] [address] bedtime. Medical Branch SERTraline 2022-0 Yes 100mg Take 100 Un desean 100 mg 9-07 mg by ity of tablet 00:00: mouth in [place] the Medical morning. Branch ARIPiprazol 2-0 Yes 10mg Take 10 mg Univers e 10 mg 9-07 by mouth ity of tablet 00:00: at [place] [address] bedtime. Medical Branch traZODone 2-0 Yes 50mg Take 50 mg Un desean 50 mg 9-07 by mouth ity of tablet 00:00: at [place] [address] bedtime. Medical Branch SERTraline 2-0 Yes 100mg Take 100 Un desean 100 mg 9-07 mg by ity of tablet 00:00: mouth in [place] the Medical morning. Branch ARIPiprazol 2-0 Yes 10mg Take 10 mg Univers e 10 mg 9-07 by mouth ity of tablet 00:00: at [place] [address] bedtime. Medical Branch traZODone 2-0 Yes 50mg Take 50 mg Un desean 50 mg 9-07 by mouth ity of tablet 00:00: at [place] [address] bedtime. Medical Branch SERTraline 2-0 Yes 100mg Take 100 Un desean 100 mg 9-07 mg by ity of tablet 00:00: mouth in [place] the Medical morning. Branch ARIPiprazol 2-0 Yes 10mg Take 10 mg Univers e 10 mg 9-07 by mouth ity of tablet 00:00: at [place] [address] bedtime. Medical Branch traZODone 2-0 Yes 50mg Take 50 mg Un desean 50 mg 9-07 by mouth ity of tablet 00:00: at [place] [address] bedtime. Medical Branch SERTraline 2-0 Yes 100mg Take 100 Un desean 100 mg 9-07 mg by ity of tablet 00:00: mouth in [place] the Medical morning. Branch ARIPiprazol 2-0 Yes 10mg Take 10 mg Univers e 10 mg 9-07 by mouth ity of tablet 00:00: at [place] [address] bedtime. Medical Branch traZODone 2-0 Yes 50mg Take 50 mg Un desean 50 mg 9-07 by mouth ity of tablet 00:00: at [place] [address] bedtime. Medical Branch SERTraline 2-0 Yes 100mg Take 100 Un desean 100 mg 9-07 mg by ity of tablet 00:00: mouth in [place] 00 the Medical morning. Branch ARIPiprazol 2021-0 Yes 10mg Take 10 mg Univers e 10 mg 9-07 by mouth ity of tablet 00:00: at [place] [address] bedtime. Medical Branch traZODone 2021-0 Yes 50mg Take 50 mg Un desean 50 mg 9-07 by mouth ity of tablet 00:00: at [place] [address] bedtime. Medical Branch SERTraline 2021-0 Yes 100mg Take 100 Un desean 100 mg 9-07 mg by ity of tablet 00:00: mouth in [place] 00 the Medical morning. Branch ARIPiprazol 2021-0 Yes 10mg Take 10 mg Univers e 10 mg 9-07 by mouth ity of tablet 00:00: at [place] [address] bedtime. Medical Branch traZODone 2021-0 Yes 50mg Take 50 mg Un desean 50 mg 9-07 by mouth ity of tablet 00:00: at [place] [address] bedtime. Medical Branch SERTraline 2021-0 Yes 100mg Take 100 Un desean 100 mg 9-07 mg by ity of tablet 00:00: mouth in [place] the Medical morning. Branch ARIPiprazol 2021-0 Yes 10mg Take 10 mg Univers e 10 mg 9-07 by mouth ity of tablet 00:00: at [place] [address] bedtime. Medical Branch traZODone 2021-0 Yes 50mg Take 50 mg Un desean 50 mg 9-07 by mouth ity of tablet 00:00: at [place] [address] bedtime. Medical Branch SERTraline 2021-0 Yes 100mg Take 100 Un desean 100 mg 9-07 mg by ity of tablet 00:00: mouth in [place] the Medical morning. Branch traMADoL 50 2021-0 Yes 2745 TAKE 1 Univ ers mg tablet 6-16 TABLET BY ity o f 00:00: MOUTH [place] 00 EVERY 8 Medical HOURS Branch NEEDED FOR PAIN Indication s: chronic pain traMADoL 50 2021-0 Yes 2745 TAKE 1 Univ ers mg tablet 6-16 TABLET BY ity o f 00:00: MOUTH [place] 00 EVERY 8 Medical HOURS Branch NEEDED FOR PAIN Indication s: chronic pain traMADoL 50 2021-0 Yes 2745 TAKE 1 Univ ers mg tablet 6-16 TABLET BY ity o f 00:00: MOUTH [place] 00 EVERY 8 Medical HOURS Branch NEEDED FOR PAIN Indication s: chronic pain traMADoL 50 2021-0 Yes 2745 TAKE 1 Univ ers mg tablet 6-16 TABLET BY ity o f 00:00: MOUTH [place] 00 EVERY 8 Medical HOURS Branch NEEDED FOR PAIN Indication s: chronic pain traMADoL 50 2021-0 2021- No 2745 TAKE 1 Uni vers mg tablet 6-16 09-20 TABLET BY ity of 00:00: 00:00 MOUTH [place] 00 :00 EVERY 8 Medical HOURS Branch NEEDED FOR PAIN Indication s: chronic pain traMADoL 50 2021-0 2021- No 2745 TAKE 1 Uni vers mg tablet 6-16 09-20 TABLET BY ity of 00:00: 00:00 MOUTH [place] 00 :00 EVERY 8 Medical HOURS Branch NEEDED FOR PAIN Indication s: chronic pain elviteg-cob 2021-0 Yes [id number] 1{tbl} Take 1 Univers -emtri-teno 3-08 tablet by ity of f ALAFEN 00:00: mouth ([place]) 00 every Medical 150-150-200 morning. Bran ch -10 mg per tablet gabapentin 2021-0 Yes [id number] 300mg Take 1 Univers 300 mg 3-08 capsule by ity of capsule 00:00: mouth 3 00 (three) Medical times Branch daily. elviteg-cob 2021-0 Yes [id number] 1{tbl} Take 1 Univers -emtri-teno 3-08 tablet by ity of f ALAFEN 00:00: mouth ([place]) 00 every Medical 150-150-200 morning. Bran ch -10 mg per tablet gabapentin 2021-0 Yes [id number] 300mg Take 1 Univers 300 mg 3-08 capsule by ity of capsule 00:00: mouth 3 [place] 00 (three) Medical times Branch daily. elviteg-cob 2021-0 Yes [id number] 1{tbl} Take 1 Univers -emtri-teno 3-08 tablet by ity of f ALAFEN 00:00: mouth [place] ([facility]) 00 every Medical 150-150-200 morning. Bran ch -10 mg per tablet gabapentin 2021-0 Yes [id number] 300mg Take 1 Univers 300 mg 3-08 capsule by ity of capsule 00:00: mouth 3 00 (three) Medical times Branch daily. elviteg-cob 2021-0 Yes [id number] 1{tbl} Take 1 Univers -emtri-teno 3-08 tablet by ity of f ALAFEN 00:00: mouth [place] ([facility]) 00 every Medical 150-150-200 morning. Bran ch -10 mg per tablet gabapentin 2021-0 Yes [id number] 300mg Take 1 Univers 300 mg 3-08 capsule by ity of capsule 00:00: mouth 3 00 (three) Medical times Branch daily. elviteg-cob 2021-0 Yes [id number] 1{tbl} Take 1 Univers -emtri-teno 3-08 tablet by ity of f ALAFEN 00:00: mouth [place] ([facility]) 00 every Medical 150-150-200 morning. Bran ch -10 mg per tablet gabapentin 2021-0 Yes [id number] 300mg Take 1 Univers 300 mg 3-08 capsule by ity of capsule 00:00: mouth 3 (three) Medical times Branch daily. elviteg-cob 2021-0 Yes [id number] 1{tbl} Take 1 Univers -emtri-teno 3-08 tablet by ity of f ALAFEN 00:00: mouth [place] ([facility]) 00 every Medical 150-150-200 morning. Bran ch -10 mg per tablet gabapentin 2021-0 Yes [id number] 300mg Take 1 Univers 300 mg 3-08 capsule by ity of capsule 00:00: mouth 3 (three) Medical times Branch daily. elviteg-cob 2-0 Yes [id number] 1{tbl} Take 1 Univers -emtri-teno 3-08 tablet by ity of f ALAFEN 00:00: mouth [place] ([facility]) 00 every Medical 150-150-200 morning. Bran ch -10 mg per tablet gabapentin 2021-0 Yes [id number] 300mg Take 1 Univers 300 mg 3-08 capsule by ity of capsule 00:00: mouth 3 00 (three) Medical times Branch daily. gabapentin 2022-0 Yes [id number] 300mg Take 1 Univers 300 mg 3-08 capsule by ity of capsule 00:00: mouth 3 [place] 00 (three) Medical times Branch daily. gabapentin 2022-0 Yes [id number] 300mg Take 1 Univers 300 mg 3-08 capsule by ity of capsule 00:00: mouth 3 [place] 00 (three) Medical times Branch daily. elviteg-cob 2021- No [id number] 1{tbl} Take 1 Univers -emtri-teno 3-08 -20 tablet by it y of f ALAFEN 00:00: 00:00 mouth [place] ([facility]) 00 :00 every Medical 150-150-200 morning. Bran ch -10 mg per tablet elviteg-cob 2021- No [id number] 1{tbl} Take 1 Univers -emtri-teno 3-08 -20 tablet by it y of f ALAFEN 00:00: 00:00 mouth [place] ([facility]) 00 :00 every Medical 150-150-200 morning. Bran ch -10 mg per tablet elviteg-cob 2021- No [id number] 1{tbl} Take 1 Univers -emtri-teno 3-08 -20 tablet by it y of f ALAFEN 00:00: 00:00 mouth [place] [facility] every Medical 150-150-200 morning. Bran ch -10 mg per tablet gabapentin 2021- No [id number] 300mg Take 1 Univers 300 mg 10-18 capsule by ity of capsule 00:00: 00:00 mouth 3 [place] 00 :00 (three) Medical times Branch daily. elviteg-cob 2021- No [id number] 1{tbl} Take 1 Univers -emtri-teno -08 -20 tablet by it y of f ALAFEN 00:00: 00:00 mouth [place] [facility] every Medical 150-150-200 morning. Bran ch -10 mg per tablet gabapentin 2021- No [id number] 300mg Take 1 Univers 300 mg 10-1820 capsule by ity of capsule 00:00: 00:00 mouth 3 [place] 00 :00 (three) Medical times Branch daily. TRAMADOL 50 2021-0 Yes [id number] TAKE 1 Univers mg tablet 2-24 TABLET BY ity o f 00:00: MOUTH [place] 00 EVERY 8 Medical HOURS Branch NEEDED FOR PAIN TRAMADOL 50 2021-0 Yes [id number] TAKE 1 Univers mg tablet 2-24 TABLET BY ity o f 00:00: MOUTH [place] 00 EVERY 8 Medical HOURS Branch NEEDED FOR PAIN TRAMADOL 50 Yes [id number] TAKE 1 Univers mg tablet 2-24 TABLET BY ity o f 00:00: MOUTH [place] 00 EVERY 8 Medical HOURS Branch NEEDED FOR PAIN TRAMADOL 50 0 2021- No [id number] TAKE 1 Univers mg tablet 2-24 06-15 TABLET BY ity of 00:00: 00:00 MOUTH [place] 00 :00 EVERY 8 Medical HOURS Branch NEEDED FOR PAIN elviteg-cob 2020-08- No [id number] 1{tbl} Take 1 Univers -emtri-teno 08-14-08 tablet by it y of f ALAFEN 00:00: 00:00 mouth [place] ([facility]) 00 :00 every Medical 150-150-200 morning. Bran ch -10 mg per tablet gabapentin 2020-08- No [id number] 300mg Take 1 Univers 300 mg 08-1408 capsule by ity of capsule 00:00: 00:00 mouth 3 [place] 00 :00 (three) Medical times Branch daily. SERTraline 2019-08 Yes [id number] Take 1 U nivers 50 mg 1-30 tablet ity of tablet 00:00: daily for [place] 14 days. Medical Then take Branch 2 tablets daily. SERTraline 2019-08 Yes [id number] Take 1 U nivers 50 mg 1-30 tablet ity of tablet 00:00: daily for [place] 14 days. Medical Then take Branch 2 tablets daily. SERTraline 2019-08 Yes [id number] Take 1 U nivers 50 mg 1-30 tablet ity of tablet 00:00: daily for [place] 14 days. Medical Then take Branch 2 tablets daily. SERTraline 2019-08 Yes [id number] Take 1 U nivers 50 mg 1-30 tablet ity of tablet 00:00: daily for [place] 14 days. Medical Then take Branch 2 tablets daily. SERTraline 2019-08 Yes [id number] Take 1 U nivers 50 mg 1-30 tablet ity of tablet 00:00: daily for [place] [id number] 14 days. Medical Then take Branch 2 tablets daily. SERTraline 2019-08 Yes [id number] Take 1 U nivers 50 mg 1-30 tablet ity of tablet 00:00: daily for [place] 00 14 days. Medical Then take Branch 2 tablets daily. SERTraline 2019-08 Yes [id number] Take 1 U nivers 50 mg 1-30 tablet ity of tablet 00:00: daily for [place] 00 14 days. Medical Then take Branch 2 tablets daily. SERTraline 2019-08 Yes [id number] Take 1 U nivers 50 mg 1-30 tablet ity of tablet 00:00: daily for [place] 00 14 days. Medical Then take Branch 2 tablets daily. SERTraline 2019-08- No [id number] Take 1 [facility] 50 mg 1-30 09-20 tablet ity of tablet 00:00: 00:00 daily for [place] 00 :00 14 days. Medical Then take Branch 2 tablets daily. SERTraline 2019-08- No [id number] Take 1 Univers 50 mg 1-30 09-20 tablet ity of tablet 00:00: 00:00 daily for [place] 00 :00 14 days. Medical Then take Branch 2 tablets daily. SERTraline 2019-08- No [id number] Take 1 Univers 50 mg 1-30 09-20 tablet ity of tablet 00:00: 00:00 daily for [place] 00 :00 14 days. Medical Then take Branch 2 tablets daily. SERTraline 2019-08- No [id number] Take 1 Univers 50 mg 1-30 09-20 tablet ity of tablet 00:00: 00:00 daily for [place] 00 :00 14 days. Medical Then take Branch 2 tablets daily. Immunizations Ordered Filled Immunization Date Status Comments [facility] e Immunization Name Name Influenza Virus 2022-05-02 Completed Universit y of Vaccine Quad IM, 00:00:00 [place] Me dical Preserv and ABX Branch Free 6 MO-64 YRS SARS-COV-2 COVID-2022-05-02 Completed Unive rsity of VACCINE 18 YRS+, 00:00:00 [place] Me [facility] BIVALENT 0.5ML, IM, Branc h (MODERNA BOOSTER) Influenza Virus 2022-05-02 Completed Universit y of Vaccine Quad IM, 00:00:00 [place] [facility] Preserv and ABX Branch Free 6 MO-64 YRS SARS-COV-2 COVID-19 2022-05-02 Completed Unive rsity of VACCINE 18 YRS+, 00:00:00 [place] [facility] BIVALENT 0.5ML, IM, Branc h [...] COVID-19 2022-05-02 Completed Unive rsity of VACCINE 12 YRS+, 00:00:00 [place] [facility] BIVALENT 0.5ML, IM, Branc h (MODERNA BOOSTER) Influenza Virus 2022-05-02 Completed Universit y of Vaccine Quad IM, 00:00:00 [place] [facility] Preserv and ABX Branch Free 6 MO-64 YRS SARS-COV-2 COVID-19 2022-05-02 Completed Unive rsity of VACCINE 12 YRS+, 00:00:00 [place] [facility] BIVALENT 0.5ML, IM, Branc h (MODERNA BOOSTER) Influenza Virus 2022-05-02 Completed Universit y of Vaccine Quad IM, 00:00:00 [place] [facility] Preserv and ABX Branch Free 6 MO-64 YRS SARS-COV-2 COVID-19 2022-05-02 Completed Unive rsity of VACCINE 12 YRS+, 00:00:00 [place] [facility] BIVALENT 0.5ML, IM, Branc h (MODERNA BOOSTER) Influenza Virus 2022-05-02 Completed Universit y of Vaccine Quad IM, 00:00:00 [place] [facility] Preserv and ABX Branch Free 6 MO-64 YRS SARS-COV-2 COVID-19 2022-05-02 Completed Unive rsity of VACCINE 12 YRS+, 00:00:00 [place] [facility] BIVALENT 0.5ML, IM, Branc h (MODERNA BOOSTER) SARS-COV-2 COVID-19 2021-10-18 Completed Unive rsity of PFIZER VACCINE 00:00:00 [facility] Influenza Virus 2021-10-18 Completed [facility]it y of Vaccine Quad IM, 00:00:00 [place] [facility] Preserv and ABX Branch Free 6 MO-64 YRS SARS-COV-2 COVID-19 2021-10-18 Completed Unive rsity of PFIZER VACCINE 00:00:00 [facility] Influenza Virus 2021-10-18 Completed Universit y of Vaccine Quad IM, 00:00:00 [facility] dical Preserv and ABX Branch Free 6 MO-64 YRS SARS-COV-2 COVID-19 2021-10-18 Completed Unive rsity of PFIZER VACCINE 00:00:00 [facility] Influenza Virus 2021-10-18 Completed Universit y of Vaccine Quad IM, 00:00:00 [facility] dical Preserv and ABX Branch Free 6 MO-64 YRS SARS-COV-2 COVID-19 2021-10-18 Completed Unive rsity of PFIZER VACCINE 00:00:00 [facility] Influenza Virus 2021-10-18 Completed Universit y of Vaccine Quad IM, 00:00:00 [facility] dical Preserv and ABX Branch Free 6 MO-64 YRS SARS-COV-2 COVID-19 2021-10-18 Completed Unive rsity of PFIZER VACCINE 00:00:00 [facility] Influenza Virus 2021-10-18 Completed Universit y of Vaccine Quad IM, 00:00:00 [facility] dical Preserv and ABX Branch Free 6 MO-64 YRS SARS-COV-2 COVID-19 2021-10-18 Completed Unive rsity of PFIZER VACCINE 00:00:00 [facility] Influenza Virus 2021-10-18 Completed Universit y of Vaccine Quad IM, 00:00:00 [facility] dical Preserv and ABX Branch Free 6 MO-64 YRS SARS-COV-2 COVID-19 2021-10-18 Completed Unive rsity of PFIZER VACCINE 00:00:00 [facility] Influenza Virus 2021-10-18 Completed Universit y of Vaccine Quad IM, 00:00:00 [facility] dical Preserv and ABX Branch Free 6 MO-64 YRS SARS-COV-2 COVID-19 2021-10-18 Completed Unive rsity of PFIZER VACCINE 00:00:00 [facility] Influenza Virus 2021-10-18 Completed Universit y of Vaccine Quad IM, 00:00:00 [facility] dical Preserv and ABX Branch Free 6 MO-64 YRS SARS-COV-2 COVID-19 2021-10-18 Completed Unive rsity of PFIZER VACCINE 00:00:00 [facility] Influenza Virus 2021-10-18 Completed Universit y of Vaccine Quad IM, 00:00:00 [place] [facility] Preserv and ABX Branch Free 6 MO-64 YRS SARS-COV-2 COVID-19 2021-10-18 Completed Unive rsity of PFIZER VACCINE 00:00:00 [facility] Influenza Virus 2021-10-18 Completed Universit y of Vaccine Quad IM, 00:00:00 [place] [facility] Preserv and ABX Branch Free 6 MO-64 YRS SARS-COV-2 COVID-19 2021-10-18 Completed Unive rsity of PFIZER VACCINE 00:00:00 [facility] Influenza Virus 2021-10-18 Completed Universit y of Vaccine Quad IM, 00:00:00 [place] [facility] dical Preserv and ABX Branch Free 6 MO-64 YRS SARS-COV-2 COVID-19 2021-10-18 Completed Unive rsity of PFIZER VACCINE 00:00:00 [facility] Influenza Virus 2021-10-18 Completed Universit y of Vaccine Quad IM, 00:00:00 [facility] dical Preserv and ABX Branch Free 6 MO-64 YRS SARS-COV-2 COVID-19 2021-10-18 Completed Unive rsity of PFIZER VACCINE 00:00:00 [facility] Influenza Virus 2021-10-18 Completed Universit y of Vaccine Quad IM, 00:00:00 [facility] dical Preserv and ABX Branch Free 6 MO-64 YRS SARS-COV-2 COVID-19 2021-10-18 Completed Unive rsity of PFIZER VACCINE 00:00:00 [facility] Influenza Virus 2021-10-18 Completed Universit y of Vaccine Quad IM, 00:00:00 [facility] dical Preserv and ABX Branch Free 6 MO-64 YRS SARS-COV-2 COVID-19 2021-10-18 Completed Unive rsity of PFIZER VACCINE 00:00:00 [facility] Influenza Virus 2021-10-18 Completed Universit y of Vaccine Quad IM, 00:00:00 [facility] dical Preserv and ABX Branch Free 6 MO-64 YRS SARS-COV-2 COVID-19 2021-10-18 Completed Unive rsity of PFIZER VACCINE 00:00:00 [facility] Influenza Virus 2021-10-18 Completed Universit y of Vaccine Quad IM, 00:00:00 [facility] dical Preserv and ABX Branch Free 6 MO-64 YRS SARS-COV-2 COVID-19 2021-10-18 Completed Unive rsity of PFIZER VACCINE 00:00:00 [facility] Influenza Virus 2021-10-18 Completed Universit y of Vaccine Quad IM, 00:00:00 [place] [facility] Preserv and ABX Branch Free 6 MO-64 YRS SARS-COV-2 COVID-19 2021-10-18 Completed Unive rsity of PFIZER VACCINE 00:00:00 [facility] Influenza Virus 2021-10-18 Completed Universit y of Vaccine Quad IM, 00:00:00 [place] [facility] Preserv and ABX Branch Free 6 MO-64 YRS SARS-COV-2 COVID-19 2021-10-18 Completed Unive rsity of PFIZER VACCINE 00:00:00 [facility] Influenza Virus 2021-10-18 Completed Universit y of Vaccine Quad IM, 00:00:00 [place] [facility] Preserv and ABX Branch Free 6 MO-64 YRS SARS-COV-2 COVID-19 2021-06-14 Completed Unive rsity of PFIZER VACCINE 00:00:00 [facility] SARS-COV-2 COVID-19 2021-06-14 Completed Unive rsity of PFIZER VACCINE 00:00:00 [facility] SARS-COV-2 COVID-19 2021-06-14 Completed Unive rsity of PFIZER VACCINE 00:00:00 [facility] SARS-COV-2 COVID-19 2021-06-14 Completed Unive rsity of PFIZER VACCINE 00:00:00 [facility] SARS-COV-2 COVID-19 2021-06-14 Completed Unive rsity of PFIZER VACCINE 00:00:00 [facility] SARS-COV-2 COVID-19 2021-06-14 Completed Unive rsity of PFIZER VACCINE 00:00:00 [facility] SARS-COV-2 COVID-19 2021-06-14 Completed Unive rsity of PFIZER VACCINE 00:00:00 [facility] SARS-COV-2 COVID-19 2021-06-14 Completed Unive rsity of PFIZER VACCINE 00:00:00 [facility] SARS-COV-2 COVID-19 2021-06-14 Completed Unive rsity of PFIZER VACCINE 00:00:00 [facility] SARS-COV-2 COVID-19 2021-06-14 Completed Unive rsity of PFIZER VACCINE 00:00:00 [facility] SARS-COV-2 COVID-19 2021-06-14 Completed Unive rsity of PFIZER VACCINE 00:00:00 [facility] SARS-COV-2 COVID-19 2021-06-14 Completed Unive rsity of PFIZER VACCINE 00:00:00 [facility] SARS-COV-2 COVID-19 2021-06-14 Completed Unive rsity of PFIZER VACCINE 00:00:00 [facility] SARS-COV-2 COVID-19 2021-06-14 Completed Unive rsity of PFIZER VACCINE 00:00:00 [facility] SARS-COV-2 COVID-19 2021-06-14 Completed Unive rsity of PFIZER VACCINE 00:00:00 [facility] SARS-COV-2 COVID-19 2021-06-14 Completed Unive rsity of PFIZER VACCINE 00:00:00 [facility] SARS-COV-2 COVID-19 2021-06-14 Completed Unive rsity of PFIZER VACCINE 00:00:00 [facility] SARS-COV-2 COVID-19 2021-06-14 Completed Unive rsity of PFIZER VACCINE 00:00:00 [facility] SARS-COV-2 COVID-19 2021-06-14 Completed Unive rsity of PFIZER VACCINE 00:00:00 [facility] SARS-COV-2 COVID-19 2021-06-14 Completed Unive rsity of PFIZER VACCINE 00:00:00 [facility] Influenza Virus 2020-07-13 Completed Universit y of Vaccine Recomb Quad 00:00:00 [place] [facility] IM, Preserv and ABX Branc h [...] Universit y of Vaccine Recomb Quad 00:00:00 [place] [facility] IM, Preserv and ABX Branc h [...] 2018-09-24 Completed Univer sity of b) 00:00:00 [facility] [place] [facility] Branch Twinrix (hep a/hep 2018-09-24 Completed Univer sity of b) 00:00:00 [facility] [place] [facility] Branch Twinrix (hep a/hep 2018-09-24 Completed Univer sity of b) 00:00:00 [facility] [place] [facility] Branch Twinrix (hep a/hep 2018-09-24 Completed Univer sity of b) 00:00:00 [facility] [place] [facility] Branch Twinrix (hep a/hep 2018-09-24 Completed Univer sity of b) 00:00:00 [facility] Branch Twinrix (hep a/hep 2018-09-24 Completed Univer sity of b) 00:00:00 [facility] Branch Twinrix (hep a/hep 2018-09-24 Completed Univer sity of b) 00:00:00 [facility] Branch Twinrix (hep a/hep 2018-09-24 Completed Univer sity of b) 00:00:00 [facility] Branch Twinrix (hep a/hep 2018-09-24 Completed Univer sity of b) 00:00:00 [facility] Branch Twinrix (hep a/hep 2018-09-24 Completed Univer sity of b) 00:00:00 [facility] Branch Twinrix (hep a/hep 2018-09-24 Completed Univer sity of b) 00:00:00 [facility] Branch Twinrix (hep a/hep 2018-09-24 Completed Univer sity of b) 00:00:00 [facility] Branch Twinrix (hep a/hep 2018-09-24 Completed Univer sity of b) 00:00:00 [facility] [place] [facility] Branch Twinrix (hep a/hep 2018-09-24 Completed Univer sity of b) 00:00:00 [place] [facility] Twinrix (hep a/hep 2018-09-24 Completed Univer sity of b) 00:00:00 [place] [facility] Twinrix (hep a/hep 2018-09-24 Completed Univer sity of b) 00:00:00 [place] [facility] Twinrix (hep a/hep 2018-09-24 Completed Univer sity of b) 00:00:00 [place] [facility] Twinrix (hep a/hep 2018-09-24 Completed Univer sity of b) 00:00:00 [place] [facility] Twinrix (hep a/hep 2018-09-24 Completed Univer sity of b) 00:00:00 [facility] [place] [facility] Branch Twinrix (hep a/hep 2018-09-24 Completed Univer sity of b) 00:00:00 [facility] Influenza Virus 2018-06-11 Completed Universit y of Vaccine Quad .5 mL 00:00:00 [place] [facility] IM 6+ MO Branch Twinrix (hep a/hep 2018-06-11 Completed Univer sity of b) 00:00:00 [facility] Influenza Virus 2018-06-11 Completed Universit y of Vaccine Quad .5 mL 00:00:00 [place] [facility] IM 6+ MO Branch Twinrix (hep a/hep 2018-06-11 Completed Univer sity of b) 00:00:00 [facility] Influenza Virus 2018-06-11 Completed Universit y of Vaccine Quad .5 mL 00:00:00 [place] [facility] IM 6+ MO Branch Twinrix (hep a/hep 2018-06-11 Completed Univer sity of b) 00:00:00 [facility] Influenza Virus 2018-06-11 Completed Universit y of Vaccine Quad .5 mL 00:00:00 [place] [facility] IM 6+ MO Branch Twinrix (hep a/hep 2018-06-11 Completed Univer sity of b) 00:00:00 [facility] Influenza Virus 2018-06-11 Completed Universit y of Vaccine Quad .5 mL 00:00:00 [place] [facility] IM 6+ MO Branch Twinrix (hep a/hep 2018-06-11 Completed Univer sity of b) 00:00:00 [facility] Influenza Virus 2018-06-11 Completed Universit y of Vaccine Quad .5 mL 00:00:00 [place] [facility] IM 6+ MO Branch Twinrix (hep a/hep 2018-06-11 Completed Univer sity of b) 00:00:00 [facility] Influenza Virus 2018-06-11 Completed Universit y of Vaccine Quad .5 mL 00:00:00 [place] [facility] IM 6+ MO Branch Twinrix (hep a/hep 2018-06-11 Completed Univer sity of b) 00:00:00 [facility] Influenza Virus 2018-06-11 Completed Universit y of Vaccine Quad .5 mL 00:00:00 [place] [facility] IM 6+ MO Branch Twinrix (hep a/hep 2018-06-11 Completed Univer sity of b) 00:00:00 [facility] Influenza Virus 2018-06-11 Completed Universit y of Vaccine Quad .5 mL 00:00:00 [place] [facility] IM 6+ MO Branch Twinrix (hep a/hep 2018-06-11 Completed Univer sity of b) 00:00:00 [facility] Influenza Virus 2018-06-11 Completed Universit y of Vaccine Quad .5 mL 00:00:00 [place] [facility] IM 6+ MO Branch Twinrix (hep a/hep 2018-06-11 Completed Univer sity of b) 00:00:00 [facility] Influenza Virus 2018-06-11 Completed Universit y of Vaccine Quad .5 mL 00:00:00 [place] [facility] IM 6+ MO Branch Twinrix (hep a/hep 2018-06-11 Completed Univer sity of b) 00:00:00 [facility] Influenza Virus 2018-06-11 Completed Universit y of Vaccine Quad .5 mL 00:00:00 [place] [facility] IM 6+ MO Branch Twinrix (hep a/hep 2018-06-11 Completed Univer sity of b) 00:00:00 [facility] Influenza Virus 2018-06-11 Completed Universit y of Vaccine Quad .5 mL 00:00:00 [place] [facility] IM 6+ MO Branch Twinrix (hep a/hep 2018-06-11 Completed Univer sity of b) 00:00:00 [facility] Influenza Virus 2018-06-11 Completed Universit y of Vaccine Quad .5 mL 00:00:00 [place] [facility] IM 6+ MO Branch Twinrix (hep a/hep 2018-06-11 Completed Univer sity of b) 00:00:00 [facility] Influenza Virus 2018-06-11 Completed Universit y of Vaccine Quad .5 mL 00:00:00 [place] [facility] IM 6+ MO Branch Twinrix (hep a/hep 2018-06-11 Completed Univer sity of b) 00:00:00 [facility] Influenza Virus 2018-06-11 Completed Universit y of Vaccine Quad .5 mL 00:00:00 [facility] 6+ MO Branch Twinrix (hep a/hep 2018-06-11 Completed Univer sity of b) 00:00:00 [facility] Influenza Virus 2018-06-11 Completed Universit y of Vaccine Quad .5 mL 00:00:00 [facility] 6+ MO Branch Twinrix (hep a/hep 2018-06-11 Completed Univer sity of b) 00:00:00 [facility] Influenza Virus 2018-06-11 Completed Universit y of Vaccine Quad .5 mL 00:00:00 [facility] 6+ MO Branch Twinrix (hep a/hep 2018-06-11 Completed Univer sity of b) 00:00:00 [facility] Influenza Virus 2018-06-11 Completed Universit y of Vaccine Quad .5 mL 00:00:00 [facility] 6+ MO Branch Twinrix (hep a/hep 2018-06-11 Completed Univer sity of b) 00:00:00 [facility] Influenza Virus 2018-06-11 Completed Universit y of Vaccine Quad .5 mL 00:00:00 [facility] 6+ MO Branch Twinrix (hep a/hep 2018-06-11 Completed Univer sity of b) 00:00:00 [facility] Pneumococcal 2017-10-09 Completed University o f Polysaccharide, 00:00:00 [facility] PPSV23 (PNEUMOVAX) Branch TDAP (ADACEL) 2017-10-09 Completed University of VACCINE 00:00:00 [facility] Twinrix (hep a/hep 2017-10-09 Completed Univer sity of b) 00:00:00 [facility] Pneumococcal 2017-10-09 Completed University o f Polysaccharide, 00:00:00 [place] [facility] ical PPSV23 (PNEUMOVAX) Branch TDAP (ADACEL) 2017-10-09 Completed University of VACCINE 00:00:00 [facility] Twinrix (hep a/hep 2017-10-09 Completed Univer sity of b) 00:00:00 [facility] Pneumococcal 2017-10-09 Completed University o f Polysaccharide, 00:00:00 [place] [facility] ical PPSV23 (PNEUMOVAX) Branch TDAP (ADACEL) 2017-10-09 Completed University of VACCINE 00:00:00 [facility] Twinrix (hep a/hep 2017-10-09 Completed Univer sity of b) 00:00:00 [facility] Pneumococcal 2017-10-09 Completed University o f Polysaccharide, 00:00:00 [place] [facility] ical PPSV23 (PNEUMOVAX) Branch TDAP (ADACEL) 2017-10-09 Completed University of VACCINE 00:00:00 [facility] Twinrix (hep a/hep 2017-10-09 Completed Univer sity of b) 00:00:00 [facility] Pneumococcal 2017-10-09 Completed University o f Polysaccharide, 00:00:00 [place] [facility] ical PPSV23 (PNEUMOVAX) Branch TDAP (ADACEL) 2017-10-09 Completed University of VACCINE 00:00:00 [facility] Twinrix (hep a/hep 2017-10-09 Completed Univer sity of b) 00:00:00 [facility] Pneumococcal 2017-10-09 Completed University o f Polysaccharide, 00:00:00 [place] [facility] ical PPSV23 (PNEUMOVAX) Branch TDAP (ADACEL) 2017-10-09 Completed University of VACCINE 00:00:00 [facility] Twinrix (hep a/hep 2017-10-09 Completed Univer sity of b) 00:00:00 [facility] Pneumococcal 2017-10-09 Completed University o f Polysaccharide, 00:00:00 [place] [facility] ical PPSV23 (PNEUMOVAX) Branch TDAP (ADACEL) 2017-10-09 Completed University of VACCINE 00:00:00 [facility] Twinrix (hep a/hep 2017-10-09 Completed Univer sity of b) 00:00:00 [facility] Pneumococcal 2017-10-09 Completed University o f Polysaccharide, 00:00:00 [place] [facility] ical PPSV23 (PNEUMOVAX) Branch TDAP (ADACEL) 2017-10-09 Completed University of VACCINE 00:00:00 [facility] Twinrix (hep a/hep 2017-10-09 Completed Univer sity of b) 00:00:00 [facility] Pneumococcal 2017-10-09 Completed University o f Polysaccharide, 00:00:00 [place] [facility] ical PPSV23 (PNEUMOVAX) Branch TDAP (ADACEL) 2017-10-09 Completed University of VACCINE 00:00:00 [facility] Twinrix (hep a/hep 2017-10-09 Completed Univer sity of b) 00:00:00 [facility] Pneumococcal 2017-10-09 Completed University o f Polysaccharide, 00:00:00 [place] [facility] ical PPSV23 (PNEUMOVAX) Branch TDAP (ADACEL) 2017-10-09 Completed University of VACCINE 00:00:00 [facility] Twinrix (hep a/hep 2017-10-09 Completed Univer sity of b) 00:00:00 [facility] Pneumococcal 2017-10-09 Completed University o f Polysaccharide, 00:00:00 [place] [facility] ical PPSV23 (PNEUMOVAX) Branch TDAP (ADACEL) 2017-10-09 Completed University of VACCINE 00:00:00 [facility] Twinrix (hep a/hep 2017-10-09 Completed Univer sity of b) 00:00:00 [facility] Pneumococcal 2017-10-09 Completed University o f Polysaccharide, 00:00:00 [place] [facility] ical PPSV23 (PNEUMOVAX) Branch TDAP (ADACEL) 2017-10-09 Completed University of VACCINE 00:00:00 [facility] Twinrix (hep a/hep 2017-10-09 Completed Univer sity of b) 00:00:00 [facility] Pneumococcal 2017-10-09 Completed University o f Polysaccharide, 00:00:00 [place] [facility] ical PPSV23 (PNEUMOVAX) Branch TDAP (ADACEL) 2017-10-09 Completed University of VACCINE 00:00:00 [facility] Twinrix (hep a/hep 2017-10-09 Completed Univer sity of b) 00:00:00 [facility] Pneumococcal 2017-10-09 Completed University o f Polysaccharide, 00:00:00 [place] [facility] ical PPSV23 (PNEUMOVAX) Branch TDAP (ADACEL) 2017-10-09 Completed University of VACCINE 00:00:00 [facility] Twinrix (hep a/hep 2017-10-09 Completed Univer sity of b) 00:00:00 [facility] Pneumococcal 2017-10-09 Completed University o f Polysaccharide, 00:00:00 [place] [facility] ical PPSV23 (PNEUMOVAX) Branch TDAP (ADACEL) 2017-10-09 Completed University of VACCINE 00:00:00 [facility] Twinrix (hep a/hep 2017-10-09 Completed Univer sity of b) 00:00:00 [facility] Pneumococcal 2017-10-09 Completed University o f Polysaccharide, 00:00:00 [place] [facility] ical PPSV23 (PNEUMOVAX) Branch TDAP (ADACEL) 2017-10-09 Completed University of VACCINE 00:00:00 [facility] Twinrix (hep a/hep 2017-10-09 Completed Univer sity of b) 00:00:00 [facility] Pneumococcal 2017-10-09 Completed University o f Polysaccharide, 00:00:00 [facility] PPSV23 (PNEUMOVAX) Branch TDAP (ADACEL) 2017-10-09 Completed University of VACCINE 00:00:00 [facility] Twinrix (hep a/hep 2017-10-09 Completed Univer sity of b) 00:00:00 [facility] Pneumococcal 2017-10-09 Completed University o f Polysaccharide, 00:[facility]:00 [facility] PPSV23 (PNEUMOVAX) Branch TDAP (ADACEL) 2017-10-09 Completed University of VACCINE 00:00:00 [facility] Twinrix (hep a/hep 2017-10-09 Completed Univer sity of b) 00:00:00 [facility] Pneumococcal 2017-10-09 Completed University o f Polysaccharide, 00:00[facility]00 [facility] ical PPSV23 (PNEUMOVAX) Branch TDAP (ADACEL) 2017-10-09 Completed University of VACCINE 00:00:00 [facility] Twinrix (hep a/hep 2017-10-09 Completed Univer sity of b) 00:00:00 [facility] Pneumococcal 2017-10-09 Completed University o f Polysaccharide, 00:00:00 [place] [facility] ical PPSV23 (PNEUMOVAX) Branch TDAP (ADACEL) 2017-10-09 Completed University of VACCINE 00:00:00 [facility] Twinrix (hep a/hep 2017-10-09 Completed Univer sity of b) 00:00:00 [facility] Pneumococcal 13 2017-06-05 Completed Universit y of Conjugate, PCV13 00:00:00 [place] [facility] (Prevnar 13) Branch Influenza Virus 2017-06-05 Completed Universit y of Vaccine Quad ID 00:00:00 [facility] ical 18-64 YRS Branch Pneumococcal 13 2017-06-05 Completed Universit y of Conjugate, PCV13 00:00:00 [place] [facility] (Prevnar 13) Branch Influenza Virus 2017-06-05 Completed Universit y of Vaccine Quad ID 00:00:00 [facility] ical 18-64 YRS Branch Pneumococcal 13 2017-06-05 Completed Universit y of Conjugate, PCV13 00:00:00 [place] [facility] (Prevnar 13) Branch Influenza Virus 2017-06-05 Completed Universit y of Vaccine Quad ID 00:00:00 [facility] ica 18-64 YRS Branch Pneumococcal 13 2017-06-05 Completed Universit y of Conjugate, PCV13 00:00:00 [place] [facility] (Prevnar 13) Branch Influenza Virus 2017-06-05 Completed Universit y of Vaccine Quad ID 00:00:00 [facility] 18-64 YRS Branch Pneumococcal 13 2017-06-05 Completed Universit y of Conjugate, PCV13 00:00:00 [place] [facility] (Prevnar 13) Branch Influenza Virus 2017-06-05 Completed Universit y of Vaccine Quad ID 00:00:00 [facility] ica 18-64 YRS Branch Pneumococcal 13 2017-06-05 Completed Universit y of Conjugate, PCV13 00:00:00 [place] [facility] (Prevnar 13) Branch Influenza Virus 2017-06-05 Completed Universit y of Vaccine Quad ID 00:00:00 [facility] ica 18-64 YRS Branch Pneumococcal 13 2017-06-05 Completed Universit y of Conjugate, PCV13 00:00:00 [place] [facility] (Prevnar 13) Branch Influenza Virus 2017-06-05 Completed Universit y of Vaccine Quad ID 00:00:00 [facility] ical 18-64 YRS Branch Pneumococcal 13 2017-06-05 Completed Universit y of Conjugate, PCV13 00:00:00 [place] [facility] (Prevnar 13) Branch Influenza Virus 2017-06-05 Completed Universit y of Vaccine Quad ID 00:00:00 [facility] ical 18-64 YRS Branch Pneumococcal 13 2017-06-05 Completed Universit y of Conjugate, PCV13 00:00:00 [place] [facility] (Prevnar 13) Branch Influenza Virus 2017-06-05 Completed Universit y of Vaccine Quad ID 00:00:00 [facility] 18-64 YRS Branch Pneumococcal 13 2017-06-05 Completed Universit y of Conjugate, PCV13 00:00:00 [place] [facility] (Prevnar 13) Branch Influenza Virus 2017-06-05 Completed Universit y of Vaccine Quad ID 00:00:00 [facility] 18-64 YRS Branch Pneumococcal 13 2017-06-05 Completed Universit y of Conjugate, PCV13 00:00:00 [place] [facility] (Prevnar 13) Branch Influenza Virus 2017-06-05 Completed Universit y of Vaccine Quad ID 00:00:00 [facility] 18-64 YRS Branch Pneumococcal 13 2017-06-05 Completed Universit y of Conjugate, PCV13 00:00:00 [place] [facility] (Prevnar 13) Branch Influenza Virus 2017-06-05 Completed Universit y of Vaccine Quad ID 00:00:00 [facility] 18-64 YRS Branch Pneumococcal 13 2017-06-05 Completed Universit y of Conjugate, PCV13 00:00:00 [place] [facility] (Prevnar 13) Branch Influenza Virus 2017-06-05 Completed Universit y of Vaccine Quad ID 00:00:00 [facility] 18-64 YRS Branch Pneumococcal 13 2017-06-05 Completed Universit y of Conjugate, PCV13 00:00:00 [place] [facility] (Prevnar 13) Branch Influenza Virus 2017-06-05 Completed Universit y of Vaccine Quad ID 00:00:00 [facility] 18-64 YRS Branch Pneumococcal 13 2017-06-05 Completed Universit y of Conjugate, PCV13 00:00:00 [place] [facility] (Prevnar 13) Branch Influenza Virus 2017-06-05 Completed Universit y of Vaccine Quad ID 00:00:00 [facility] 18-64 YRS Branch Pneumococcal 13 2017-06-05 Completed Universit y of Conjugate, PCV13 00:00:00 [place] [facility] (Prevnar 13) Branch Influenza Virus 2017-06-05 Completed Universit y of Vaccine Quad ID 00:00:00 [facility] 18-64 YRS Branch Pneumococcal 13 2017-06-05 Completed Universit y of Conjugate, PCV13 00:00:00 [place] [facility] (Prevnar 13) Branch Influenza Virus 2017-06-05 Completed Universit y of Vaccine Quad ID 00:00:00 [facility] 18-64 YRS Branch Pneumococcal 13 2017-06-05 Completed Universit y of Conjugate, PCV13 00:00:00 [place] [facility] (Prevnar 13) Branch Influenza Virus 2017-06-05 Completed Universit y of Vaccine Quad ID 00:00:00 [facility] ical 18-64 YRS Branch Pneumococcal 13 2017-06-05 Completed Universit y of Conjugate, PCV13 00:00:00 [place] [facility] (Prevnar 13) Branch Influenza Virus 2017-06-05 Completed Universit y of Vaccine Quad ID 00:00:00 [facility] 18-64 [facility] Pneumococcal 13 2017-06-05 Completed Universit y of Conjugate, PCV13 00:00:00 [facility] dical (Prevnar 13) Branch Influenza Virus 2017-06-05 Completed Universit y of Vaccine Quad ID 00:00:00 [facility] 18-64 YRS Branch Vital Signs Vital Name Observation Time Observation Value Comments Source Systolic blood 2022-06-20 15:30:00 132 mm[Hg] Univer sity of pressure [facility] Diastolic blood 2022-06-20 15:30:00 74 mm[Hg] Unive rsity of [facility] Heart rate 2022-06-20 15:25:00 87 /min Universi ty [facility] Body temperature 2022-06-20 15:25:00 36.17 Neli [facility] Respiratory rate 2022-06-20 15:25:00 18 /min [facility] Body height 2022-06-20 15:25:00 [facility].2 [facility] Body weight 2022-06-20 15:25:00 64.411 kg [facility] BMI 2022-06-20 15:25:00 22.24 kg/m2 [facility] Systolic blood 2022-05-02 21:37:00 134 mm[Hg] Univer sity of pressure [facility] Diastolic blood 2022-05-02 21:37:00 85 mm[Hg] Unive rsity of pressure [facility] Heart rate 2022-05-02 21:36:00 86 /min Universi ty [facility] Body temperature 2022-05-02 21:36:00 36.44 [facility] height 2022-05-02 21:36:00 170.2 cm [facility] Body weight 2022-05-02 21:36:00 63.504 kg [facility] BMI 2022-05-02 21:36:00 21.93 kg/m2 [facility] Systolic blood 2021-10-18 21:08:00 140 mm[Hg] Univer sity of pressure [facility] Diastolic blood 2021-10-18 21:08:00 87 mm[Hg] [facility] Heart [facility] 2021-10-18 21:08:00 84 /min [facility] Body temperature 2021-10-18 21:05:00 36.78 Neli [facility] Respiratory rate 2021-10-18 21:05:00 16 /min [facility] Body height 2021-10-18 21:05:00 167.6 cm [facility] Body weight 2021-10-18 21:05:00 64.093 kg [facility] BMI 2021-10-18 21:05:00 22.81 kg/m2 [facility] Procedures Procedure Date / Time Performing Clinician Source Performed ASSIGNMENT OF BENEFITS 2022-06-20 15:18:10 Doctor Unassigned, No [facility] Name [facility] FLU VACC ([id number]), 6 2022-05-02 22:01:31 Sobeida Pollard [facility] MO-64 YRS, .5ML, IM, Medical Bra [facility] QUAD (FLUCELVAX) SARS-COV-2 COVID-19 2022-05-02 22:01:31 Sobeida Pollard [facility] VACCINE 18 YRS+, Medical Branch BIVALENT 0.5ML, IM (MODERNA BOOSTER) AUTHORIZATION FOR 2022-01-15 05:01:00 Doctor Unassigned, No [facility] RELEASE OF [facility] Name [facility] FLU VACC ([id number]), 2021-10-18 23:00:52 Chris Linder [facility] 2-64 YRS, .5ML, IM, QUAD Medical Branch (FLUCELVAX) AUTHORIZATION FOR 2021-09-21 06:01:00 Doctor Unassigned, No [facility] RELEASE OF PHI Name [facility] Encounters Start End Encounter Admission Attending Care Care Encounter Source Date/Time Date/Time Type Type Clinicians Facility Department ID 2022 Outpatient R OBDULIA [facility] [id number] Univers 10:48:[address] [facility] 2022-06-26 2022-06-26 Outpatient R WINSTON [facility] [id number] Univers 14:00:00 14:00:00 , MCKINLEY katherine [facility] 2022-06-26 2022-06-26 Outpatient R [facility] [id number] Univers 14:00:00 14:00:[address] [facility] 2022-06-20 2022-06-20 Finisher Plate [facility] UNIVERSIT 1.2.840.114 [id number] Univers 11:45:00 12:00:00 [facility] 350.1.13.10 [place] [id number] [facility] 316 Branch 2022-06-20 2022-06-20 Outpatient R YULIANA MONTALVO [facility] [id number] Univers 09:30:00 10:10:[address] [facility] 2022-06-20 2022-06-20 Office CORDELL Montalvo 1.2.840.114 [id number] Univers 09:30:00 10:10:31 [facility] 350.1.13.10 [place] [id number] [facility] 113 Branch 2022-06-20 2022-06-20 Orders Doctor RUPESH 1.2.840.114 [id number] Univers 00:00:00 00:00:00 Only Unassigned, NIGEL 350.1.13.10 ity of Sophia HOSPITAL 4.2.7.2.686 Angel as [id number] [facility] 009 Branch 2022-05-26 2022-05-26 Telephone Obdulia [facility] 1.2.617.982 [id number] Univers 00:00:00 00:00:00 Florencio Shi SPECIALTY 350.1.13.10 it[place] [phone] Ms stephen DRAKE [address] [place] [address] 2022-05-15 2022-05-15 Outpatient CHRIS ALFONSO [facility] [id number] Univers 00:00:00 00:00:00 CHRIS LINDER [facility] 2022-05-09 2022-05-09 Outpatient Mia SUN [facility] [id number] Univers 14:30:00 [facility]:30[facility] 2022-05-09 2022-05-09 Letter [facility] [id number] Univers 00:00:00 00:00:00 (Out) Thierno Adamson ICAL 350.1.13.10 ity of SCIENCES 4.2.7.2.686 Angel as BLDG [id number] [address] 2022-05-05 2022-05-05 Letter Mauro [facility] 1.2.337.354 [id number] Univers 00:00:00 00:00:00 (Out) Thierno Adamson ICAL 350.1.13.10 ity of SCIENCES 4.2.7.2.686 Angel as BLDG [id number] [address] 2022-05-03 2022-05-03 Telephone RICHARD LinderIT 1.2.840.114 [id number] Univers 00:00:00 00:00:00 [facility] 350.1.13.10 i ty [place] [id number] [address] 2022-05-02 2022-05-02 Office RICHARD LinderIT 1.2.840.114 [id number] Univers 16:00:00 16:30:00 Visit [facility] HEALTH 350.1.13.10 i ty [place] [id number] [address] 2022-05-02 2022-05-02 Outpatient CHRIS ALFONSO [facility] [id number] Univers 16:00:00 16:00:00 KAILASHCHRIS [facility] 2022-04-24 2022-04-24 Outpatient Mia SUN [facility] [id number] Univers 09:00:00 09:00:00 [facility] 2022-04-21 2022-04-21 Letter [facility] .2.368.019 [id number] Univers 00:00:00 00:00:00 (Out) Lashonda Aguilar PRIMARY 350.1.13.10 ity of CARE 4.2.7.2.686 Angeltiffany hardwick SATISH [id number] [address] 2022-04-20 2022-04-20 Outpatient Mia HAYDEN [facility] [id number] Univers 11:00:00 11:00:00 DARIA [facility] 2022-04-18 2022-04-18 Outpatient Mia LINDER [facility] [id number] Univers 14:30:00 14:30:00 KAILASHCHRIS [facility] 2022-04-07 2022-04-07 Outpatient ELENA TINOCO [facility] [id number] Univers 10:10:00 10:10:00 ELENA LORA [facility] 2022-04-04 2022-04-04 Out[facility] [id number] Univers 13:00:00 13:00:00 KAILASHCHRIS [facility] 2022-03-29 2022-03-29 Outpatient Mia CARDENAS [facility] [id number] Univers 08:20:00 08:20:00 RENNY [facility] 2022-03-06 2022-03-06 Outpatient Mia SUN [facility] [id number] Univers 10:30:00 10:30:00 [facility] 2022-01-25 2022-01-25 RefCORDELL Lam .2.840.114 [id number] Univers 00:00:00 00:00:00 Chris Hardwick [facility] 350.1.13.10 i ty [place] [id number] [facility] [address] [place] 2022-01-23 2022-01-23 Refill RICHARD Linder 1.2.840.114 [id number] Univers 00:00:00 00:00:00 Chris S Y HEALTH 350.1.13.10 i ty [place] [id number] [facility] [address] [place] 2022-01-15 2022-01-15 Orders Doctor RUPESH 1.2.840.114 [id number] Univers 00:00:00 00:00:00 Only Unassigned, NIGEL 350.1.13.10 ity of Sophia [facility] 4.2.7.2.686 Angel as [id number] [facility] 009 Branch 2021-12-07 2021-12-07 Telephone Felice [facility] 1.2.840.114 [id number] Univers 00:00:00 00:00:00 Mayra VILLATORO 350.1.13.10 i ty of [place].2.[place] PROF[place] [id number] Ms dical MARIA [facility] 188 [facility] 2021-10-20 2021-10-20 Telephone CORDELL Linder 1.2.840.114 [id number] Univers 00:00:00 00:00:00 Chris S Y HEALTH 350.1.13.10 i ty of [facility] 4.2.7.2.[place] [id number] [facility] [address] [place] 2021-10-18 2021-10-18 Finisher Plate [facility] UNIVERSIT 1.2.840.114 [id number] Univers 16:45:00 16:45:00 Visit Kailash Chris S Y HEALTH 350.1.13.10 [place] [id number] [facility] 316 Branch 2021-10-18 2021-10-18 Office CORDELL Linder 1.2.840.114 [id number] Univers 15:30:00 16:03:04 Visit Chris S Y HEALTH 350.1.13.10 i ty [place] [id number] [place] [address] [place] 2021-10-18 2021-10-18 Outpatient Mia FREDERICKKAILASHCHRIS ASH [facility] [id number] Univers 15:30:00 16:03:04 CHRIS LINDER [facility] 2021-10-18 2021-10-18 Outpatient R KAILASH [facility] [id number] Univers 16:00:00 16:00:00 CHRIS LINDER [facility] 2021-10-18 2021-10-18 Outpatient M[facility] [id number] Univers 11:40:00 11:40:00 [facility] 2021-10-06 2021-10-06 CORDELL Carranza 1.2.840.114 [id number] Univers 00:00:00 00:00:00 [facility] 350.1.13.10 i ty of [facility] 4.2.7.2.[place] [id number] [address] 2021-09-22 2021-09-22 Outpatient M[facility] [id number] Univers 10:30:00 10:30:00 [facility] 2021-09-22 2021-09-22 Outpatient M[facility] [id number] Univers 10:30:00 10:30:00 [facility] 2021-09-21 2021-09-21 Orders Doctor GODDARD 1.2.840.114 [id number] Univers 00:00:00 00:00:00 Only Unassigned, NIGEL 350.1.13.10 ity of Sophia [facility] 4.2.7.2.686 Angel as [phone] [facility] 009 Branch 2021-08-22 2021-08-22 Outpatient Mia KAILASH, [facility] [id number] Univers 00:00:00 00:00:00 KAILASHCHRIS ASH [facility] 2021-08-22 2021-08-22 Outpatient Mia [facility]ERY[facility] [id number] Univers 00:00:00 00:00:[address] [facility] 2021-07-12 2021-07-12 Outpatient R [facility] [id number] Univers 15:30:00 15:30:[address] [facility] 2021-07-12 2021-07-12 Outpatient R [facility] [id number] Univers 15:30:00 15:30:[address] [facility] 2021-07-01 2021-07-01 Telephone RICHARD LinderIT 1.2.840.114 [id number] Univers 00:00:00 00:00:00 Chris Minor HEALTH 350.1.13.10 i ty [place] [id number] [place] [address]39[address] [place] 2021-06-14 2021-06-14 Finisher Plate [facility] UNIVERSIT 1.2.840.114 [id number] Univers 16:09:17 16:24:17 Visit KailashChris ash HEALTH 350.1.13.10 ity of CL[place]ICS [place] [id number] [facility] 316 Branch 2021-06-14 2021-06-14 Imm/Inj Vaccine, Gal [facility] UNIVERSIT 1.2.840 .114 [id number] Univers 16:04:16 16:14:16 Visit KailashChris ash HEALTH 350.1.13.10 ity of CL[place]ICS [place] [id number] [facility] [address] [place] 2021-06-14 2021-06-14 Office CORDELL Linder 1.2.840.114 [id number] Univers 15:14:56 15:44:56 Visit Chris Minor HEALTH 350.1.13.10 i ty of CL[place]ICS [place] [id number] [place] 853929 [facility] 2021-06-14 2021-06-14 Outpatient Mia THOMASCHRIS ASH [facility] [id number] Univers 15:30:00 15:30:[address] [facility] 2021-06-14 2021-06-14 Outpatient R CHRIS LINDER [facility] [id number] Univers 15:30:00 15:30:00 CHRIS LINDER [facility] 2021-05-28 2021-05-28 Refill RICHARD LinderIT 1.2.840.114 [id number] Univers 00:00:00 00:00:00 Chris S Y HEALTH 350.1.13.10 i ty [place] [id number] [address] 2021-05-11 2021-05-11 Outpatient M[facility] [id number] Univers 15:15:00 15:15:00 [facility] 2021-05-09 2021-05-09 Outpatient Mia [facility] [id number] Univers 14:00:00 14:00:00 [facility] 2021-04-28 2021-04-28 Telephone RICHARD LinderIT 1.2.840.114 [id number] Univers 00:00:00 00:00:00 Chris S Y HEALTH 350.1.13.10 i ty [place] [id number] [address] 2021-04-25 2021-04-25 Outpatient Mia [facility] [id number] Univers 08:45:00 08:45:00 JERO murphy o [facility] 2021-04-19 2021-04-19 Telephone Kailash 1.2.840.5 [id number] Univers 00:00:00 00:00:00 Chris S 00353.1.1 ity of 3.104.2.7 [place] .[id number] Medica l .8 Branch 2021-04-11 2021-04-11 Outpatient R [facility] [id number] Univers 08:45:00 08:45:00 JERO murphy o f [facility] 2021-03-16 2021-03-16 Outpatient Mia [facility] [id number] Univers 08:45:00 08:45:00 MORRIS [facility] 2021-03-16 2021-03-16 Refill Kailash, 1.2.840.4 [id number] Univers 00:00:00 00:00:00 Chris Hardwick 75537.1.1 ity of 3.104.2.7 [place] .3.920402 Medica l .[address] [place] 2020-12-27 2020-12-27 Outpatient Mia LOPEZ, [facility] [id number] Univers 14:30:00 14:30:00 MORRIS [facility] 2020-12-15 2020-12-15 Outpatient Mia HUANG [facility] [id number] Univers 15:15:00 15:15:00 SANAM [facility] 2020-12-07 2020-12-07 Finisher Plate [facility] UNIVERSIT 1.2.840.114 [id number] Univers 15:07:29 15:40:28 Visit KailashChris S HEALTH 350.1.13.10 ity of CL[place] 4[place] [id number] [facility] [address] [place] 2020-12-07 2020-12-07 Office Kailash, UNIVERSIT 1.2.840.114 [id number] 14:03:43 15:00:48 Visit Chris S Y HEALTH 350.1.13.10 CLINICS 4.2.7.2.686 [id number] [facility] 2020-12-07 2020-12-07 Office Kailash, UNIVERSIT 1.2.840.114 [id number] Univers 14:03:43 15:00:48 Visit Chris S Y HEALTH 350.1.13.10 i ty of CL[place] [id number] [place] [address]39[address] [facility] [place] 2020-12-07 2020-12-07 Outpatient CHRIS ALFONSO [facility] [id number] Univers 14:30:00 14:30:[address] [facility] 2020-11-23 2020-11-23 Outpatient CHRIS ALFONSO [facility] [id number] Univers 13:00:00 13:00:00 KAILASH, CHRIS [facility] 2020-11-12 2020-11-12 Shazia Thomason RICHARD 1.2.840.114 [id number] Univers 00:00:00 00:00:00 Chris S Y HEALTH 350.1.13.10 i ty of CL[place] [id number] [address] 2020-09-27 2020-09-27 Outpatient Mia LOPEZ [facility] [id number] Univers 13:45:00 13:45:00 MORRIS [facility] 2020-09-14 2020-09-14 Refjimbo Kailash RICHARD 1.2.840.114 [id number] Univers 00:00:00 00:00:00 Chris S Y HEALTH 350.1.13.10 i ty of [place] [id number] [address] 2020-09-13 2020-09-13 Shazia Kailash RICHARD 1.2.840.114 [id number] Univers 00:00:00 00:00:00 Chris S Y HEALTH 350.1.13.10 i ty of CL[place] [id number] [address] 2020-09-07 2020-09-07 Outpatient Mia THOMASCHRIS ASH [facility] [id number] Univers 13:30:00 13:30:00 KAILASHCHRIS [facility] 2020-08-26 2020-08-26 Telephone Kailash RICHARDRAFIA 1.2.840.114 [id number] Univers 00:00:00 00:00:00 Chris S Y HEALTH 350.1.13.10 i ty [place] [id number] [address] 2020-08-26 2020-08-26 Telephone Kailash CORDELL 1.2.840.114 [id number] Univers 00:00:00 00:00:00 Chris S Y HEALTH 350.1.13.10 i ty of CL[place] [id number] [place] [address]39[address] [facility] [place] 2020-08-19 2020-08-19 Telephone RICHARD Linder 1.2.840.114 [id number] Univers 00:00:00 00:00:00 Chris S Y HEALTH 350.1.13.10 i ty of [place] [id number] [address] 2020-08-09 2020-08-09 Outpatient R SELF, [facility] [id number] Univers 08:00:00 08:00:[address] [facility] 2020-08-09 2020-08-09 Outpatient R SELF, [facility] [id number] Univers 08:00:00 08:00:[address] [facility] 2020-07-13 2020-07-13 Outpatient R CHRIS LINDER [facility] [id number] Univers 15:15:00 14:49:18 CHRIS LINDER [facility] 2020-07-13 2020-07-13 Finisher Plate [facility] UNIVERSIT [id number] Univers 14:39:02 14:49:18 Visit Chris Linder HEALTH [id number] it[id number] [id number] [facility] [address] 2020-07-13 2020-07-13 Office CORDELL Linder [id number] Univers 13:51:20 14:21:20 Visit Chris S Y HEALTH [id number] i ty [id number] [id number] [address] 2020-07-13 2020-07-13 Outpatient R CHRIS LINDER [facility] [id number] Univers 14:00:00 14:00:00 CHRIS LINDER [facility] 2020-07-12 2020-07-12 Outpatient R SELF, [facility] [id number] Univers 08:00:00 08:00:00 JERO delgadochivo reyez [place] [facility] 2020-07-12 2020-07-12 Orders Doctor 1.2.840.9 [id number] Univers 00:00:00 00:00:00 Only Unassigned, 53400.1.1 ity of [place] 3.104.2.7 [place] .3.209575 Medica l .8 [facility] 2020-07-07 2020-07-07 Travel 1.2.840.1 [id number] [id number] Univers 00:00:00 00:00:00 46735.1.1 350.1.13.10 ity of 3.104.2.7 4[place].3.698 [place] .3.171645 084.8 Medica l .8 [facility] 2020-06-29 2020-06-29 Outpatient Mia LINDER CHRIS [facility] [id number] Univers 15:00[facility]00 [facility]:00[facility] 2020-06-24 Refill Kailash 1.2.840.5 [id number] Univers 00:00:00 00:00:00 Chris Hardwick 56605.1.1 ity of 3.104.2.7 [place] .3.479665 Medica l .8 [facility] 2020-06-01 2020-06-01 Outpatient CHRIS ALFONSO [facility] [id number] Univers 13:00:00 13:00:00 CHRIS LINDER [facility] 2020-05-14 2020-05-14 Outpatient Mia SUN [facility] [id number] Univers 09:15:00 09:15:00 [facility] 2020-05-06 2020-05-06 Outpatient Mia SUN [facility] [id number] Univers 13:45:00 13:45:00 [facility] 2020-03-20 2020-03-20 Refill RICHARD LinderIT 1.2.840.114 [id number] Univers 00:00:00 00:00:00 Chris Toney [facility] 350.1.13.10 i ty [place] [id number] [facility] 089 [facility] 2020-03-08 2020-03-08 Outpatient R GONZÁLEZ, [facility] [id number] Univers 09:30:00 09:30:00 JEROSTEPHEN reyez [facility] 2020-02-24 2020-02-24 Outpatient R CHRIS LINDER [facility] [id number] Univers 15:00:00 15:00:00 CHRIS LINDER [facility] 2020-02-24 2020-02-24 Telemedici RICHARD LinderIT 1.2.840.114 [id number] Univers 07:45:48 08:15:48 ne Visit Chris S [facility] 350.1.13.10 [id number] [address] 2020-02-09 2020-02-09 Outpatient R GONZÁLEZ, [facility] [id number] Univers 09:30:00 09:30:[address] [facility] 2020-01-26 2020-01-26 [facility] [id number] Univers 11:00:00 11:00:00 SUZANNE [facility] 2020-01-23 2020-01-23 Telephone RICHARD LinderIT 1.2.840.114 [id number] Univers 00:00:00 00:00:00 Chris S Y HEALTH 350.1.13.10 i [place] [id number] [address] 2019-12-23 2019-12-23 Outpatient R CHRIS LINDER [facility] [id number] Univers 15:00:00 15:00:00 CHRIS LINDER [facility] 2019-12-15 2019-12-15 Telephone RICHARD LinderIT 1.2.840.114 [id number] Univers 00:00:00 00:00:00 Chris S Y HEALTH 350.1.13.10 i [id number] [address] 2019-11-24 2019-11-24 Outpatient [facility] [id number] Univers 13:00:00 13:00:[address] [facility] 2019-11-14 2019-11-14 Outpatient R LIOR [facility] [id number] Univers 13:30:00 13:30:[address] [facility] 2019-10-30 2019-10-30 Telephone Kailash, 1.2.840.9 [id number] Univers 00:00:00 00:00:00 Chris Hardwick 47442.1.1 ity of 3.104.2.7 [place] .3.271818 Medica l .8 [facility] 2019-10-14 2019-10-14 Outpatient R CHRIS LINDER [facility] [id number] Univers 15:00:00 15:00:[address] [facility] 2019-08-25 2019-08-25 Case Rick, 1.2.840.8 [id number] Univers 00:00:00 00:00:00 Management Faby Lorenzana 58622.1.1 ity of 3.104.2.7 [place] .3.761651 Medica l .8 [facility] 2019-06-30 2019-06-30 Outpatient R JUSTINO, [facility] [id number] Univers 16:00:00 16:51:[address] [facility] 2019-06-30 2019-06-30 Orders Doctor 1.2.840.1 [id number] Univers 00:00:00 00:00:00 Only Unassigned, 08160.1.1 ity of [place] 3.104.2.7 [place] .3.855346 Medica l .8 [facility] 2019-05-06 2019-05-06 Telephone Irma, 1.2.840.0 [id number] Univers 00:00:00 00:00:00 Mckinley Richter 30668.1.1 ity of 3.104.2.7 [place] .3.636988 Medica l .8 [facility] 2019-05-01 2019-05-01 Office Yanelis May 1.2.840.1 [id number] Univers 08:05:43 09:14:20 Visit Res-Colpo/Leep, [facility] 74739.1.1 ity of 3.104.2.7 [place] .3.420186 Medica l .8 [facility] 2019-05-01 2019-05-01 Orders Doctor 1.2.840.4 [id number] Univers 00:00:00 00:00:00 Only Unassigned, 87896.1.1 ity of [place] 3.104.2.7 [place] .3.493452 Medica l .8 [facility] 2019-04-29 2019-04-29 Telephone Ezchivo, 1.2.840.1 [id number] Univers 00:00:00 00:00:00 Best L 03395.1.1 ity of 3.104.2.7 [place] .3.146745 Medica l .8 [facility] 2019-04-15 2019-04-15 Hospital Kailash, 1.2.840.7 [id number] Univers 10:45:00 10:45:00 Encounter Chris S 70065.1.1 it y of 3.104.2.7 [place] .3.873936 Medica l .8 [facility] 2019-04-15 2019-04-15 Outpatient R CHRIS LINDER [facility] [id number] Univers 00:00:00 00:00:00 CHRIS LINDER ity of [place] [facility] 2019-04-15 2019-04-15 Telephone Rafael, 1.2.840.4 [id number] Univers 00:00:00 00:00:00 Dang L 13172.1.1 ity of 3.104.2.7 [place] .3.322694 Medica l .8 [facility] 2019-04-15 2019-04-15 Refill Kailash, 1.2.840.0 [id number] Univers 00:00:00 00:00:00 Chris S 96605.1.1 ity of 3.104.2.7 [place] .3.226839 Medica l .8 [facility] 2019-04-12 2019-04-12 Refill Kailash, 1.2.840.0 [id number] Univers 00:00:00 00:00:00 Chris S 92347.1.1 ity of 3.104.2.7 [place] .3.696346 Medica l .8 [facility] 2019-03-28 2019-03-28 Telephone CORDELL Morelos 1.2.840.114 [id number] Univers 00:00:00 00:00:00 Best [facility] 350.1.13.10 ity of [place] [id number] [facility] 089 [facility] 2019-01-13 2019-01-13 Outpatient R LIS [facility] [id number] [facility] 00:00:00 23:59:00 LASHONDA murphy o f [facility] Results This patient has no known results.
[2022-06-29] MEDS ORDERED: LIDOCAINE 1% 20 ML MDV ONE (12:30)
--- NOTE | 2022-06-29 12:56 | ER ---
Nurse's Notes [facility] Name: Tianna Costello Age: 47 yrs Sex: Female : 1975 Arrival Date: 06/29/2022 Time: 11:37 Bed 9 Private MD: Diagnosis: Cutaneous abscess of buttock Presentation: 06/29 12:01 Chief complaint: Patient states: feels like I have an abscess on my left butt check. kr3 there is a big knot that covers half of my butt. I cannot sit on the left side because it causes to much pain. Coronavirus screen: Vaccine status: Patient reports receiving the 2nd dose of the covid vaccine. Client denies travel out of the [place] in the last 14 days. Ebola Screen: Patient denies travel to an Ebola-affected area in the 21 days before illness onset. Initial Sepsis Screen: Does the patient meet any 2 criteria? No. Patient's initial sepsis screen is negative. Does the patient have a suspected source of infection? Yes: Skin breakdown/wound. Risk Assessment: Do you want to hurt yourself or someone else? Patient reports no desire to harm self or others. Onset of symptoms was June 27, 2022. 12:01 Method Of Arrival: Ambulatory kr3 12:01 Acuity: DAVID 4 kr3 Triage Assessment: 12:05 General: Appears in no apparent distress. uncomfortable, Behavior is calm, cooperative, kr3 appropriate for age. Pain: Complains of pain in buttocks. Historical: - Allergies: 12:04 PENICILLINS; kr3 - PMHx: 12:04 Anxiety; Asthma; HIV positive; kr3 - PSHx: 12:04 section; kr3 - Immunization history:: Adult Immunizations up to date. - Social history:: Smoking status: Patient reports the use of cigarette tobacco products, denies chronic smoking, but will smoke occasionally. Screenin:08 Abuse screen: Denies threats or abuse. Denies injuries from another. Nutritional tp1 screening: No deficits noted. Tuberculosis screening: No symptoms or risk factors identified. Fall Risk None identified. Assessment: 12:33 General: Appears in no apparent distress. uncomfortable, Behavior is calm, cooperative. tp1 Pain: Complains of pain in buttocks Pain currently is 10 out of 10 on a pain scale. Neuro: Level of Consciousness is awake, alert, obeys commands, Oriented to person, place, time, situation. Cardiovascular: Patient's skin is warm and dry. Respiratory: Airway is patent Respiratory effort is even, unlabored. GI: No signs and/or symptoms were reported involving the gastrointestinal system. : EENT: No signs and/or symptoms were reported regarding the EENT system. Derm: Skin is pink, warm \T\ dry. Derm: Abscess located on gluteal cleft. Musculoskeletal: Swelling present in gluteal cleft. 13:06 Reassessment: wound covered with nonadherent dressing and paper tape. tp1 Vital Signs: 12:01 BP 126 / 105; Pulse 85; Resp 17; Temp 98.5(O); Pulse Ox 100% on R/A; Weight 64.41 kg; kr3 Height 5 ft. 7 in. (170.18 cm); Pain 10/10; 12:01 Body Mass Index 22.24 (64.41 kg, 170.18 cm) kr3 ED Course: 11:37 Patient arrived in ED. mr 11:37 [facility] 11:37 Robert Anderson MD is Attending Physician. jh7 12:04 Triage completed. kr3 12:05 Arm band placed on left wrist. kr3 12:06 Patient placed in an exam room, on a stretcher. kr3 12:14 Rosalie Jose, RN is Primary Nurse. tp1 12:33 Patient has correct armband on for positive identification. Placed in gown. Call light tp1 in reach. 13:07 Assist provider with I \T\ D: of an abscess on Set up I\T\D tray. Performed by Joie tp 1 Krystal GABRIEL Wound packed. iodoform gauze, Dressing with nonadherent dressing Patient tolerated well. Patient did not have IV access during this emergency room visit. Administered Medications: 12:33 Not Given (Physician Discretion): Clindamycin 600 mg IM once [facility] 12:58 Drug: Lidocaine (1 %) 20 ml {Note: Administered by TERRI Rice.} Volume: 20 ml; Route: tp1 Infiltration; Medication: 12:33 VIS not applicable for this client. tp1 Outcome: 12:55 Discharge ordered by . [facility] 13:08 Discharged to home ambulatory. tp1 13:08 Condition: good 13:08 Discharge instructions given to patient, Instructed on discharge instructions, follow up and referral plans. medication usage, Demonstrated understanding of instructions, follow-up care, medications, Prescriptions given X 2. 13:09 Patient left the ED. tp1 Signatures: Danica Rodriguez Tiffany, RN RN tp1 Joie Rice, ASSISTANT CROSS COUNTRY COACH ASSISTANT CROSS COUNTRY COACH jh7 Afshan Tomlinson RN RN kr3
--- NOTE | 2022-06-29 12:56 | EDPHYS ---
Physician Documentation [facility] Name: Tianna Costello Age: 47 yrs Sex: Female : 1975 Arrival Date: 06/29/2022 Time: 11:37 Bed 9 Private MD: ED Physician Robert Anderson HPI: 06/29 12:05 This 47 yrs old Black Female presents to ER via Ambulatory with complaints of Abscess. jh7 12:05 The patient presents with an abscess of the buttocks. Description: swollen, warm, jh7 Indurated. Onset: The symptoms/episode began/occurred 2 day(s) ago. Associated signs and symptoms: The patient has no apparent associated signs or symptoms, Pertinent negatives: fever. Patient reports abscess on the buttocks occurring 2 days ago. States that the area is very painful and that she is having trouble sitting down. History of HIV and anemia.. Historical: - Allergies: 12:04 PENICILLINS; kr3 - PMHx: 12:04 Anxiety; Asthma; HIV positive; kr3 - PSHx: 12:04 section; kr3 - Immunization history:: Adult Immunizations up to date. - Social history:: Smoking status: Patient reports the use of cigarette tobacco products, denies chronic smoking, but will smoke occasionally. ROS: 12:05 Constitutional: Negative for fever, chills, and weight loss, Neck: Negative for injury, jh7 pain, and swelling, Cardiovascular: Negative for chest pain, palpitations, and edema, Respiratory: Negative for shortness of breath, cough, wheezing, and pleuritic chest pain, Abdomen/GI: Negative for abdominal pain, nausea, vomiting, diarrhea, and constipation, Back: Negative for injury and pain, MS/Extremity: Negative for injury and deformity, Neuro: Negative for headache, weakness, numbness, tingling, and seizure. 12:05 Skin: Positive for abscess. 12:05 All other systems are negative. Exam: 12:05 Constitutional: This is a well developed, well nourished patient who is awake, alert, jh7 and in no acute distress. Head/Face: Normocephalic, atraumatic. Neck: Trachea midline, no thyromegaly or masses palpated, and no cervical lymphadenopathy. Supple, full range of motion without nuchal rigidity, or vertebral point tenderness. No Meningismus. Cardiovascular: Regular rate and rhythm with a normal S1 and S2. No gallops, murmurs, or rubs. Normal PMI, no JVD. No pulse deficits. Respiratory: Lungs have equal breath sounds bilaterally, clear to auscultation and percussion. No rales, rhonchi or wheezes noted. No increased work of breathing, no retractions or nasal flaring. Back: No spinal tenderness. No costovertebral tenderness. Full range of motion. MS/ Extremity: Pulses equal, no cyanosis. Neurovascular intact. Full, normal range of motion. Neuro: Awake and alert, GCS 15, oriented to person, place, time, and situation. Motor strength 5/5 in all extremities. Sensory grossly intact. Normal gait. 12:05 Skin: abscess, that is moderate sized, approximately 4 cm(s), of the cleft, with induration. Vital Signs: 12:01 BP 126 / 105; Pulse 85; Resp 17; Temp 98.5(O); Pulse Ox 100% on R/A; Weight 64.41 kg; kr3 Height 5 ft. 7 in. (170.18 cm); Pain 10/10; 12:01 Body Mass Index 22.24 (64.41 kg, 170.18 cm) 3 Procedures: 12:53 I \T\ D: Incision and drainage was performed for an abscess of the left gluteal cleft jh Prepped with Betadine, Anesthetized with 7 ml's 1% Lidocaine. Incised with #11 blade. Drained moderate amount purulent fluid. bloody fluid. Loculations removed. Abscess cavity explored. Packed with iodoform gauze, Dressing: non-Adherent dressing, the patient tolerated the procedure well. MDM: 11:37 Patient medically screened. [facility] 13:02 Differential diagnosis: abscess, cellulitis. Data reviewed: vital signs, nurses notes. [facility] Data interpreted: Pulse oximetry: is 100 %. Interpretation: normal. Counseling: I had a detailed discussion with the patient and/or guardian regarding: the historical points, exam findings, and any diagnostic results supporting the discharge/admit diagnosis, to return to the emergency department if symptoms worsen or persist or if there are any questions or concerns that arise at home. Special discussion: Informed the patient that she may remove the packing in 48 hours. Advised to take Tylenol or ibuprofen for pain, take antibiotics as directed, and perform warm Epsom salt soaks at home. If the redness or swelling spreads, or if fever develops, she may return to the ER for further eval.. 06/29 12:11 Order name: I\T\D Setup; Complete Time: 12:33 [facility] 06/29 12:26 Order name: Rozina patient; Complete Time: 12:33 [facility] 06/29 12:54 Order name: Dressing - Wound; Complete Time: 13:06 [facility] Administered Medications: 12:33 Not Given (Physician Discretion): Clindamycin 600 mg IM once [facility] 12:58 Drug: Lidocaine (1 %) 20 ml {Note: Administered by ENROLLMENT MANAGER Krystal.} Volume: 20 ml; Route: tp1 Infiltration; Disposition Summary: 06/29/22 12:55 Discharge Ordered Location: Home [facility] Problem: new [facility] Symptoms: have improved [facility] Condition: Stable [facility] Diagnosis - Cutaneous abscess of buttock [facility] Followup: [facility] - With: Private Physician - When: 2 - 3 days - Reason: Recheck today's complaints Discharge Instructions: - Discharge Summary Sheet [facility] - Skin Abscess [facility] - Incision and Drainage [facility] Forms: - Medication Reconciliation Form [facility] - Thank You Letter [facility] - Antibiotic Education [facility] Prescriptions: - mupirocin 2 % Topical ointment - apply 1 application by TOPICAL route 3 times per day for 7 days; 1 tube; [facility] Refills: 0, Product Selection Permitted - Bactrim DS 800-160 mg Oral Tablet - take 1 tablet by ORAL route every 12 hours for 10 days; 20 tablet; Refills: 0, [facility] Product Selection Permitted Addendum: 07/01/2022 08:31 Co-signature as Attending Physician, Robert Anderson MD I agree with the assessment and c loza plan of care. Signatures: Robert Anderson MD MD cha Parker, Tiffany, RN RN tp1 Joie Rice FNP [facility]7 Afshan Tomlinson RN RN kr3
[2022-06-29 13:30] VITALS: BP 126/105; TEMP 98.5; O2SAT 100
== END 2022-06-29 13:09 | disposition home or self-care (01) ==
LOC: ER 11:32
PROC: 0J990ZZ Drainage of Buttock Subcutaneous Tissue and Fascia, Open Approach (ICD-10-PCS; principal; 2022-06-29)
DX: L02.31 Cutaneous abscess of buttock (principal); F17.210 Nicotine dependence, cigarettes, uncomplicated; F41.9 Anxiety disorder, unspecified; J45.909 Unspecified asthma, uncomplicated; B20 Human immunodeficiency virus [HIV] disease; Z88.0 Allergy status to penicillin
CPT/HCPCS: 99283

== ENCOUNTER 2024-06-10 12:38 | Emergency (ER) | payer OTHER ==
--- OUTSIDE RECORDS SUMMARY | 2024-06-10 12:44 | XMS REPORT | Continuity of Care Document ---
Author Name Unknown Address [address] [facility] [address] [place] [address] [facility] thconnect Address [address] [facility] [address] [place] [address] Care Team Providers Care Sociology Instructor Name Role Phone PCP, PATIENT DOES NOT HAVE A Primary Care Physic michell Unavailable SHARON STEINER Attending Clinician UnavailCHRIS Chen Attending Clinician Unavailable CHRIS LINDER Attending Clinician Unavailable IZABEL RAMOS Attending Clinician UnaDAV [place] Attending Clinician Unavailable DAV LIM Attending Clinician Unavailable Chris Linder MD Attending Clinician [phone] Chris Linder MD Attending Clinician [phone] PRUDENCE FLORES Attending Clinician Antionette Prudence Rodriguez MD Attending Clinician Doctor Unassigned, [place] Attending Clinician U DANYELLE Denise Attending Clinician UnavailDANYELLE Velarde Attending Clinician UnavailMCKENZIE Carmen Attending Clinician Unavailable Pob, [facility] Attending Clinician UnavailMckenzie Carmen Attending Clinician [phone] MCKINLEY MONTERO Attending Clinician Unavail able [facility] Attending Clinician Unavailable TIFFANIE PICHARDO Attending Clinician Unavailable Sharon Steiner MD Attending Clinician [phone] ESTEVAN SUN Attending Clinician Unavailable Thierno Wade DO Attending Clinician [phone] Lis Theresa RICHARDSON Attending Clinician + DARIA HAYDEN Attending Clinician Unavailable ELENA LORA Attending Clinician UnavailELENA Calvo Attending Clinician Unavailabl RENNY Strauss Attending Clinician Unavailable Mayra Viveros MD Attending Clinician [phone] JEROME ONEIL Attending Clinician Unavailable KEIKO RODRÍGUEZ Attending Clinician Unavail able Vaccine, Gal [facility] Attending Clinician Unavailable JERO CLAUDIO Attending Clinician Unavailable MORRIS LOPEZ Attending Clinician Unavailable OCTAVIO HUANG Attending Clinician Unavail able SUZANNE BADILLO Attending Clinician UnavailSALLIE Crow Attending Clinician Unavailable Rick PEÑA, Faby Lorenzana Attending Clinician Unav Mckinley Doshi CNM Attending Clinician [phone] L[facility]ending [facility]ician [phone] Res-Colpo/Leep, [facility] Attending Clinician Un available Tamy PEÑA, Best Woodruff Attending Clinician Unavailute Hall RN, Dang Woodruff Attending Clinician THERESA Tierney Attending Clinician Unavail able SHARON STEINER Admitting Clinician UnavailPRUDENCE Canales Admitting Clinician Antionette vailable Payers Payer Name Policy Type Policy Number Effective Date Expirati on Date Source [facility] DUAL COMPLETE-SNP 5 [id number] 2022 00:00:00 [facility] 6 [id number] 2019 00:00:00 [facility] DUAL COMP HMO D SNP [id number] 2022 00:00:00 [place] [id number] 2022 00:00:00 [facility] [place] STAR PLUS [id number] 00:00:00 [facility] [place] STAR PLUS [id number] 2020 00:00:00 Problems Condition Name Condition Details Condition Category Status Onset Date Resolution Date Last Treatment Date Treating Clinician Comments Source 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 +hpv [facility] Well woman exam Well woman exam Disease Active 12-17 00:00: 00 [facility] Breast pain Breast pain Disease Active 12-17 00:00: 00 [facility] Obesity (BMI 30-39.9) Obesity (BMI 30-39.9) Disease Active 12-17 00:00: 00 [facility] AIDS AIDS Disease Active 01-19 00:00: 00 [facility] Pneumonia Pneumonia Disease Active 12-27 00:00: 00 [facility] Unspecifie d protein-ca kelsy malnutriti on Unspecifie d protein-ca kelsy malnutriti on Disease Resolve d 12-27 00:00: 00 2018-06-12 00:00:00 2018-06-12 08:51:32 [facility] Allergies, Adverse Reactions, Alerts Allergy Name Allergy Type Status Severity Reaction(s) Onset Date Inactive Date Treating Clinician Comments Source PENICILL INS Drug Class Active High Anaphylaxis 12-27 00:00: 00 [facility] Penicill ins Propensi ty to adverse reaction s to drug Active Unknown - See comments 12-27 00:00: 00 anaphylax is [facility] Penicill ins Propensi ty to adverse reaction s to drug Active Anaphylaxis 12-27 00:00: 00 anaphylax is [facility] Penicill ins Propensi ty to adverse reaction s to drug Active Unknown - See comments 12-27 00:00: 00 anaphylax is [facility] Social History Social Habit Start Date Stop Date Quantity Comments Source History SDOH Alcohol Frequency [facility] History SD[facility] Binge [facility] Gender identity Univ [facility] of Social function 2023-05-03 00:00:00 2023-05-03 00:00:00 [facility] Alcoholic beverage intake 2023-05-03 00:00:00 2023-05-03 00:00:00 Current non-drinker of alcohol (finding) [facility] Cigarettes smoked current (pack per day) - Reported 2023-05-03 00:00:00 2023-05-03 00:00:00 [facility] Cigarette pack-years 2023-05-03 00:00:00 2023-05-03 00:00:00 [facility] Tobacco use and exposure 2023-05-03 00:00:00 2023-05-03 00:00:00 Smokeless tobacco non-user [facility] Alcohol intake 2023-05-03 00:00:00 2023-05-03 00:00:00 Current non-drinker of alcohol (finding) [facility] Tobacco Comment 2023-05-03 00:00:00 2023-05-03 00:00:00 Is currently smoking 2 cigarettes daily-05/03/23 [facility] Exposure to SARS-CoV-2 (event) 2022-06-10 00:00:00 2022-06-20 09:26:00 Not sure [facility] Alcohol Comment 2016-12-27 00:00:00 2016-12-27 00:00:00 Occasional wine [facility] History of tobacco use 2016-09-29 00:00:00 Cigarette Smoker [facility] Sex assigned at 1975 00:00:00 1975 00:00:00 [facility] Smoking Status Start Date Stop Date Source Smokes tobacco daily 2023-05-03 00:00:00 [facility] Occasional tobacco smoker 2022-05-02 00:00:00 [facility] Medications Ordered Medication Name Filled Medication Name Start Date Stop Date Current Medication? Ordering Clinician Indication Dosage Frequency Signature (SIG) Comments Components Source elviteg-cob -emtri-teno f ALAFEN (GENVOYA) 150-150-200 -10 mg per tablet 2023-08 003 00:00: 00 Yes [id number] 1{tbl} Take 1 tablet by mouth every morning. Please call to schedule a follow up brandyn wade Thank you [facility] ALBUTEROL 90 mcg/actuati on inhaler 03-11 00:00: 00 Yes [id number] 2{puff} TAKE 2 PUFFS BY MOUTH EVERY 6 HOURS NEEDED FOR WHEEZE OR FOR SHORTNESS OF BREATH [facility] ARIPIPRAZOL E 10 mg tablet 03-11 00:00: 00 Yes [id number] 10mg TAKE 1 TABLET BY MOUTH EVERYDAY AT BEDTIME [facility] TRAMADOL 50 mg tablet 01-21 00:00: 00 Yes [id number] TAKE 1 TABLET BY MOUTH EVERY 8 HOURS NEEDED FOR PAIN INDICATION S: CHRONIC PAIN [facility] traMADoL 50 mg tablet 12-25 00:00: 00 01-21 00:00 :00 No [id number] TAKE 1 TABLET BY MOUTH EVERY 8 HOURS NEEDED FOR PAIN INDICATION S: CHRONIC PAIN [facility] elviteg-cob -emtri-teno f ALAFEN (GENVOYA) 150-150-200 -10 mg per tablet 12-11 00:00: 00 05-15 00:00 :00 No [id number] 1{tbl} Take 1 tablet by mouth every morning. Please call to schedule a follow up brandyn wade Thank you [facility] BENZONATATE 100 mg capsule - 00:00: 00 Yes [id number] TAKE 1 CAPSULE BY MOUTH EVERY 6 HOURS NEEDED FOR COUGH. [facility] BENZONATATE 100 mg capsule 3-05 00:00: 00 Yes [id number] TAKE 1 CAPSULE BY MOUTH EVERY 6 HOURS NEEDED FOR COUGH. [facility] BENZONATATE 100 mg capsule 2 00:00: 00 Yes [id number] TAKE 1 CAPSULE BY MOUTH EVERY 6 HOURS NEEDED FOR COUGH. [facility] TRAMADOL 50 mg tablet 2 00:00: 00 12-25 00:00 :00 No [id number] TAKE 1 TABLET BY MOUTH EVERY 8 HOURS NEEDED FOR PAIN INDICATION S: CHRONIC PAIN [facility] QUEtiapine 50 mg tablet 2022-08 00:00: 00 Yes TAKE 1 TABLET AT BEDTIME TAKE FOR 7 NIGHTS IF NO SIDE EFFECTS INCREASE TO THE 100 MG TABS. [facility] traMADoL 50 mg tablet 2022-08 00:00: 00 09-20 00:00 :00 No [id number] TAKE 1 TABLET BY MOUTH EVERY 8 HOURS NEEDED FOR PAIN Indication s: chronic pain [facility] azithromyci n 250 mg tablet 05-03 00:00: 00 Yes [id number] Z-Blayne = 500mg day 1, then 250mg days 2 to 5. [facility] Guaifenesin 1,200 mg tablet 05-03 00:00: 00 Yes [id number] 1200mg Take 1 tablet by mouth in the morning and 1 tablet in the evening. [facility] benzonatate (TESSALON PERLES) 100 mg capsule 05-03 00:00: 00 09-21 00:00 :00 No [id number] 100mg Take 1 capsule by mouth every 6 (six) hours as needed for Cough. [facility] prednisoLON E 5 mg tablet 05-03 00:00: 00 05-09 04:59 :00 No [id number] 20mg Take 4 tablets by mouth in the morning for 5 days. [facility] busPIRone 10 mg tablet 04-27 00:00: 00 Yes 10mg Take 1 tablet by mouth in the morning and 1 tablet in the evening. [facility] traZODone 50 mg tablet 02-16 00:00: 00 Yes [id number] 50mg Take 1 tablet by mouth at bedtime. [facility] gabapentin 300 mg capsule 02-16 00:00: 00 Yes [id number] 300mg Take 1 capsule by mouth in the morning and 1 capsule at noon and 1 capsule in the evening. [facility] SERTraline 100 mg tablet 02-16 00:00: 00 Yes [id number] 100mg Take 1 tablet by mouth in the morning. [facility] ARIPiprazol e 10 mg tablet 02-16 00:00: 03-11 00:00 :00 No [id number] 10mg Take 1 tablet by mouth at bedtime. [facility] albuterol 90 mcg/actuati on inhaler 02-16 00:00: 00 03-11 00:00 :00 No [id number] 2{puff} Inhale 2 Puffs every 6 (six) hours as needed for Wheezing or Shortness of Breath. [facility] elviteg-cob -emtri-teno f ALAFEN (GENVOYA) 150-150-200 -10 mg per tablet 02-16 00:00: 00 12-11 00:00 :00 No [id number] 1{tbl} Take 1 tablet by mouth every morning. [facility] doxycycline hyclate 100 mg capsule 02-16 00:00: 00 02-24 04:59 :00 No [id number] 100mg Take 1 capsule by mouth every 12 (twelve) hours for 7 days. [facility] traMADoL 50 mg tablet 02-14 00:00: 00 06-21 00:00 :00 No [id number] TAKE 1 TABLET BY MOUTH EVERY 8 HOURS NEEDED FOR PAIN Indication s: chronic pain [facility] traZODone 50 mg tablet 01-17 00:00: 00 02-16 00:00 :00 No [id number] 50mg Take 1 tablet by mouth at bedtime. [facility] elviteg-cob -emtri-teno f ALAFEN (GENVOYA) 150-150-200 -10 mg per tablet 01-17 00:00: 00 02-16 00:00 :00 No [id number] 1{tbl} Take 1 tablet by mouth every morning. [facility] gabapentin 300 mg capsule 01-17 00:00: 00 02-16 00:00 :00 No [id number] 300mg Take 1 capsule by mouth in the morning and 1 capsule at noon and 1 capsule in the evening. [facility] peg-electro lyte soln 236-22.74-6 .74 -5.86 gram solution 2021-08 0-04 00:00: 00 05-17 04:59 :00 No Take as Directed [facility] polyethylen e glycol-elec trolytes 420 gram solution 2021-08 0-04 00:00: 00 06-20 00:00 :00 No TAKE DIRECTED [facility] erythromyci n 5 mg/gram (0.5 %) ophthalmic ointment 05-06 00:00: 00 Yes [facility] traMADoL 50 mg tablet 05-02 00:00: 00 02-14 00:00 :00 No [id number] TAKE 1 TABLET BY MOUTH EVERY 8 HOURS NEEDED FOR PAIN Indication s: chronic pain [facility] elviteg-cob -emtri-teno f ALAFEN (GENVOYA) 150-150-200 -10 mg per tablet 05-02 00:00: 00 01-17 00:00 :00 No [id number] 1{tbl} Take 1 tablet by mouth every morning. [facility] gabapentin 300 mg capsule 05-02 00:00: 00 01-17 00:00 :00 No [id number] 300mg Take 1 capsule by mouth in the morning and 1 capsule at noon and 1 capsule in the evening. [facility] ARIPiprazol e 10 mg tablet 04-19 00:00: 00 02-16 00:00 :00 No 10mg Take 10 mg by mouth at bedtime. [facility] SERTraline 100 mg tablet 04-19 00:00: 00 02-16 00:00 :00 No 100mg Take 100 mg by mouth in the morning. [facility] traZODone 50 mg tablet 04-19 00:00: 00 01-17 00:00 :00 No 50mg Take 50 mg by mouth at bedtime. [facility] traMADoL 50 mg tablet 16 00:00: 00 05-02 00:00 :00 No [id number] TAKE 1 TABLET BY MOUTH EVERY 8 HOURS NEEDED FOR PAIN Indication s: chronic pain [facility] elviteg-cob -emtri-teno f ALAFEN (GENVOYA) 150-150-200 -10 mg per tablet 08 00:00: 00 05-02 00:00 :00 No [id number] 1{tbl} Take 1 tablet by mouth every morning. [facility] gabapentin 300 mg capsule 08 00:00: 00 05-02 00:00 :00 No [id number] 300mg Take 1 capsule by mouth 3 (three) times daily. [facility] TRAMADOL 50 mg tablet 224 00:00: 00 01-25 00:00 :00 No [id number] TAKE 1 TABLET BY MOUTH EVERY 8 HOURS NEEDED FOR PAIN [facility] elvite-cob -emtri-teno f ALAFEN (GENVOYA) 150-150-200 -10 mg per tablet 2020-08 00:00: 00 10-18 00:00 :00 No [id number] 1{tbl} Take 1 tablet by mouth every morning. [facility] gabapentin 300 mg capsule 2020-08 00:00: 00 10-18 00:00 :00 No [id number] 300mg Take 1 capsule by mouth 3 (three) times daily. [facility] SERTraline 50 mg tablet 2019-08 00:00: 00 05-02 00:00 :00 No [id number] Take 1 tablet daily for 14 days. Then take 2 tablets daily. [facility] Immunizations Ordered Immunization Name Filled Immunization Name Date Status Comments Source Influenza Virus Vaccine Quad IM, Preserv and ABX Free 6 MO-64 YRS 2022-05-02 00:00:00 Completed [facility] SARS-COV-2 COVID-19 VACCINE 18 YRS+, BIVALENT 0.5ML, IM, (MODERNA BOOSTER) 2022-05-02 00:00:00 Completed [facility] Influenza Virus Vaccine Quad IM, Preserv and ABX Free 6 MO-64 YRS 2022-05-02 00:00:00 Completed [facility] SARS-COV-2 COVID-19 VACCINE 18 YRS+, BIVALENT 0.5ML, IM, (MODERNA BOOSTER) 2022-05-02 00:00:00 Completed [facility] Influenza Virus Vaccine Quad IM, Preserv and ABX Free 6 MO-64 YRS 2022-05-02 00:00:00 Completed [facility] SARS-COV-2 COVID-19 VACCINE 18 YRS+, BIVALENT 0.5ML, IM, (MODERNA BOOSTER) 2022-05-02 00:00:00 Completed [facility] Influenza Virus Vaccine Quad IM, Preserv and ABX Free 6 MO-64 YRS 2022-05-02 00:00:00 Completed [facility] SARS-COV-2 COVID-19 VACCINE 18 YRS+, BIVALENT 0.5ML, IM, (MODERNA BOOSTER) 2022-05-02 00:00:00 Completed [facility] Influenza Virus Vaccine Quad IM, Preserv and ABX Free 6 MO-64 YRS 2022-05-02 00:00:00 Completed [facility] SARS-COV-2 COVID-19 VACCINE 18 YRS+, BIVALENT 0.5ML, IM, (MODERNA BOOSTER) 2022-05-02 00:00:00 Completed [facility] Influenza Virus Vaccine Quad IM, Preserv and ABX Free 6 MO-64 YRS 2022-05-02 00:00:00 Completed [facility] SARS-COV-2 COVID-19 VACCINE 12 YRS+, BIVALENT 0.5ML, IM, (MODERNA BOOSTER) 2022-05-02 00:00:00 Completed [facility] Influenza Virus Vaccine Quad IM, Preserv and ABX Free 6 MO-64 YRS 2022-05-02 00:00:00 Completed [facility] SARS-COV-2 COVID-19 VACCINE 12 YRS+, BIVALENT 0.5ML, IM, (MODERNA BOOSTER) 2022-05-02 00:00:00 Completed [facility] Influenza Virus Vaccine Quad IM, Preserv and ABX Free 6 MO-64 YRS 2022-05-02 00:00:00 Completed [facility] SARS-COV-2 COVID-19 VACCINE 12 YRS+, BIVALENT 0.5ML, IM, (MODERNA BOOSTER) 2022-05-02 00:00:00 Completed [facility] Influenza Virus Vaccine Quad IM, Preserv and ABX Free 6 MO-64 YRS 2022-05-02 00:00:00 Completed [facility] SARS-COV-2 COVID-19 VACCINE 12 YRS+, BIVALENT 0.5ML, IM, (MODERNA BOOSTER) 2022-05-02 00:00:00 Completed [facility] Influenza Virus Vaccine Quad IM, Preserv and ABX Free 6 MO-64 YRS 2022-05-02 00:00:00 Completed [facility] SARS-COV-2 COVID-19 VACCINE 12 YRS+, BIVALENT 0.5ML, IM, (MODERNA BOOSTER) 2022-05-02 00:00:00 Completed [facility] Influenza Virus Vaccine Quad IM, Preserv and ABX Free 6 MO-64 YRS 2022-05-02 00:00:00 Completed [facility] SARS-COV-2 COVID-19 VACCINE 12 YRS+, BIVALENT 0.5ML, IM, (MODERNA-BLUE TOP) 2022-05-02 00:00:00 Completed [facility] Influenza Virus Vaccine Quad IM, Preserv and ABX Free 6 MO-64 YRS 2022-05-02 00:00:00 Completed [facility] SARS-COV-2 COVID-19 VACCINE 12 YRS+, BIVALENT 0.5ML, IM, (MODERNA-BLUE TOP) 2022-05-02 00:00:00 Completed [facility] Influenza Virus Vaccine Quad IM, Preserv and ABX Free 6 MO-64 YRS 2022-05-02 00:00:00 Completed [facility] SARS-COV-2 COVID-19 VACCINE 12 YRS+, BIVALENT 0.5ML, IM, (MODERNA-BLUE TOP) 2022-05-02 00:00:00 Completed [facility] Influenza Virus Vaccine Quad IM, Preserv and ABX Free 6 MO-64 YRS 2022-05-02 00:00:00 Completed [facility] SARS-COV-2 COVID-19 VACCINE 12 YRS+, BIVALENT 0.5ML, IM, (MODERNA-BLUE TOP) 2022-05-02 00:00:00 Completed [facility] Influenza Virus Vaccine Quad IM, Preserv and ABX Free 6 MO-64 YRS 2022-05-02 00:00:00 Completed [facility] SARS-COV-2 COVID-19 VACCINE 12 YRS+, BIVALENT 0.5ML, IM, (MODERNA-BLUE TOP) 2022-05-02 00:00:00 Completed [facility] Influenza Virus Vaccine Quad IM, Preserv and ABX Free 6 MO-64 YRS 2022-05-02 00:00:00 Completed [facility] SARS-COV-2 COVID-19 VACCINE 12 YRS+, BIVALENT 0.5ML, IM, (MODERNA-BLUE TOP) 2022-05-02 00:00:00 Completed [facility] Influenza Virus Vaccine Quad IM, Preserv and ABX Free 6 MO-64 YRS 2022-05-02 00:00:00 Completed [facility] SARS-COV-2 COVID-19 VACCINE 12 YRS+, BIVALENT 0.5ML, IM, (MODERNA-BLUE TOP) 2022-05-02 00:00:00 Completed [facility] Influenza Virus Vaccine Quad IM, Preserv and ABX Free 6 MO-64 YRS 2022-05-02 00:00:00 Completed [facility] SARS-COV-2 COVID-19 VACCINE 12 YRS+, BIVALENT 0.5ML, IM, (MODERNA-BLUE TOP) 2022-05-02 00:00:00 Completed [facility] Influenza Virus Vaccine Quad IM, Preserv and ABX Free 6 MO-64 YRS (FLUCELVAX) 2022-05-02 00:00:00 Completed [facility] SARS-COV-2 COVID-19 VACCINE 12 YRS+, BIVALENT 0.5ML, IM, (MODERNA-BLUE TOP) 2022-05-02 00:00:00 Completed SARS-COV-2 COVID-19 PFIZER VACCINE 2021-10-18 00:00:00 Completed [facility] Influenza Virus Vaccine Quad IM, Preserv and ABX Free 6 MO-64 YRS 2021-10-18 00:00:00 Completed [facility] SARS-COV-2 COVID-19 PFIZER VACCINE 2021-10-18 00:00:00 Completed [facility] Influenza Virus Vaccine Quad IM, Preserv and ABX Free 6 MO-64 YRS 2021-10-18 00:00:00 Completed [facility] SARS-COV-2 COVID-19 PFIZER VACCINE 2021-10-18 00:00:00 Completed [facility] Influenza Virus Vaccine Quad IM, Preserv and ABX Free 6 MO-64 YRS 2021-10-18 00:00:00 Completed [facility] SARS-COV-2 COVID-19 PFIZER VACCINE 2021-10-18 00:00:00 Completed [facility] Influenza Virus Vaccine Quad IM, Preserv and ABX Free 6 MO-64 YRS 2021-10-18 00:00:00 Completed [facility] SARS-COV-2 COVID-19 PFIZER VACCINE 2021-10-18 00:00:00 Completed [facility] Influenza Virus Vaccine Quad IM, Preserv and ABX Free 6 MO-64 YRS 2021-10-18 00:00:00 Completed [facility] SARS-COV-2 COVID-19 PFIZER VACCINE 2021-10-18 00:00:00 Completed [facility] Influenza Virus Vaccine Quad IM, Preserv and ABX Free 6 MO-64 YRS 2021-10-18 00:00:00 Completed [facility] SARS-COV-2 COVID-19 PFIZER VACCINE 2021-10-18 00:00:00 Completed [facility] Influenza Virus Vaccine Quad IM, Preserv and ABX Free 6 MO-64 YRS 2021-10-18 00:00:00 Completed [facility] SARS-COV-2 COVID-19 PFIZER VACCINE 2021-10-18 00:00:00 Completed [facility] Influenza Virus Vaccine Quad IM, Preserv and ABX Free 6 MO-64 YRS 2021-10-18 00:00:00 Completed [facility] SARS-COV-2 COVID-19 PFIZER VACCINE 2021-10-18 00:00:00 Completed [facility] Influenza Virus Vaccine Quad IM, Preserv and ABX Free 6 MO-64 YRS 2021-10-18 00:00:00 Completed [facility] SARS-COV-2 COVID-19 PFIZER VACCINE 2021-10-18 00:00:00 Completed [facility] Influenza Virus Vaccine Quad IM, Preserv and ABX Free 6 MO-64 YRS 2021-10-18 00:00:00 Completed [facility] SARS-COV-2 COVID-19 PFIZER VACCINE 2021-10-18 00:00:00 Completed [facility] Influenza Virus Vaccine Quad IM, Preserv and ABX Free 6 MO-64 YRS 2021-10-18 00:00:00 Completed [facility] SARS-COV-2 COVID-19 PFIZER VACCINE 2021-10-18 00:00:00 Completed [facility] Influenza Virus Vaccine Quad IM, Preserv and ABX Free 6 MO-64 YRS 2021-10-18 00:00:00 Completed [facility] SARS-COV-2 COVID-19 PFIZER VACCINE 2021-10-18 00:00:00 Completed [facility] Influenza Virus Vaccine Quad IM, Preserv and ABX Free 6 MO-64 YRS 2021-10-18 00:00:00 Completed [facility] SARS-COV-2 COVID-19 PFIZER VACCINE 2021-10-18 00:00:00 Completed [facility] Influenza Virus Vaccine Quad IM, Preserv and ABX Free 6 MO-64 YRS 2021-10-18 00:00:00 Completed [facility] SARS-COV-2 COVID-19 PFIZER VACCINE 2021-10-18 00:00:00 Completed [facility] Influenza Virus Vaccine Quad IM, Preserv and ABX Free 6 MO-64 YRS 2021-10-18 00:00:00 Completed [facility] SARS-COV-2 COVID-19 PFIZER VACCINE 2021-10-18 00:00:00 Completed [facility] Influenza Virus Vaccine Quad IM, Preserv and ABX Free 6 MO-64 YRS 2021-10-18 00:00:00 Completed [facility] SARS-COV-2 COVID-19 PFIZER VACCINE 2021-10-18 00:00:00 Completed [facility] Influenza Virus Vaccine Quad IM, Preserv and ABX Free 6 MO-64 YRS 2021-10-18 00:00:00 Completed [facility] SARS-COV-2 COVID-19 PFIZER VACCINE 2021-10-18 00:00:00 Completed [facility] Influenza Virus Vaccine Quad IM, Preserv and ABX Free 6 MO-64 YRS 2021-10-18 00:00:00 Completed [facility] SARS-COV-2 COVID-19 PFIZER VACCINE 2021-10-18 00:00:00 Completed [facility] Influenza Virus Vaccine Quad IM, Preserv and ABX Free 6 MO-64 YRS 2021-10-18 00:00:00 Completed [facility] SARS-COV-2 COVID-19 PFIZER VACCINE 2021-10-18 00:00:00 Completed [facility] Influenza Virus Vaccine Quad IM, Preserv and ABX Free 6 MO-64 YRS 2021-10-18 00:00:00 Completed [facility] SARS-COV-2 COVID-19 PFIZER VACCINE 2021-10-18 00:00:00 Completed [facility] Influenza Virus Vaccine Quad IM, Preserv and ABX Free 6 MO-64 YRS 2021-10-18 00:00:00 Completed [facility] SARS-COV-2 COVID-19 PFIZER VACCINE 2021-10-18 00:00:00 Completed [facility] Influenza Virus Vaccine Quad IM, Preserv and ABX Free 6 MO-64 YRS 2021-10-18 00:00:00 Completed [facility] SARS-COV-2 COVID-19 PFIZER VACCINE 2021-10-18 00:00:00 Completed [facility] Influenza Virus Vaccine Quad IM, Preserv and ABX Free 6 MO-64 YRS 2021-10-18 00:00:00 Completed [facility] SARS-COV-2 COVID-19 PFIZER VACCINE 2021-10-18 00:00:00 Completed [facility] Influenza Virus Vaccine Quad IM, Preserv and ABX Free 6 MO-64 YRS 2021-10-18 00:00:00 Completed [facility] SARS-COV-2 COVID-19 PFIZER VACCINE 2021-10-18 00:00:00 Completed [facility] Influenza Virus Vaccine Quad IM, Preserv and ABX Free 6 MO-64 YRS 2021-10-18 00:00:00 Completed [facility] SARS-COV-2 COVID-19 PFIZER VACCINE 2021-10-18 00:00:00 Completed Influenza Virus Vaccine Quad IM, Preserv and ABX Free 6 MO-64 YRS (KENIAVAX) 2021-10-18 00:00:00 Completed SARS-COV-2 COVID-19 PFIZER VACCINE 2021-06-14 00:00:00 Completed [facility] SARS-COV-2 COVID-19 PFIZER VACCINE 2021-06-14 00:00:00 Completed [facility] SARS-COV-2 COVID-19 PFIZER VACCINE 2021-06-14 00:00:00 Completed [facility] SARS-COV-2 COVID-19 PFIZER VACCINE 2021-06-14 00:00:00 Completed [facility] SARS-COV-2 COVID-19 PFIZER VACCINE 2021-06-14 00:00:00 Completed [facility] SARS-COV-2 COVID-19 PFIZER VACCINE 2021-06-14 00:00:00 Completed [facility] SARS-COV-2 COVID-19 PFIZER VACCINE 2021-06-14 00:00:00 Completed [facility] SARS-COV-2 COVID-19 PFIZER VACCINE 2021-06-14 00:00:00 Completed [facility] [facility] SARS-COV-2 COVID-19 PFIZER VACCINE 2021-06-14 00:00:00 Completed [facility] SARS-COV-2 COVID-19 PFIZER VACCINE 2021-06-14 00:00:00 Completed [facility] SARS-COV-2 COVID-19 PFIZER VACCINE 2021-06-14 00:00:00 Completed [facility] SARS-COV-2 COVID-19 PFIZER VACCINE 2021-06-14 00:00:00 Completed [facility] SARS-COV-2 COVID-19 PFIZER VACCINE 2021-06-14 00:00:00 Completed [facility] SARS-COV-2 COVID-19 PFIZER VACCINE 2021-06-14 00:00:00 Completed [facility] SARS-COV-2 COVID-19 PFIZER VACCINE 2021-06-14 00:00:00 Completed [facility] SARS-COV-2 COVID-19 PFIZER VACCINE 2021-06-14 00:00:00 Completed [facility] SARS-COV-2 COVID-19 PFIZER VACCINE 2021-06-14 00:00:00 Completed [facility] SARS-COV-2 COVID-19 PFIZER VACCINE 2021-06-14 00:00:00 Completed [facility] SARS-COV-2 COVID-19 PFIZER VACCINE 2021-06-14 00:00:00 Completed [facility] SARS-COV-2 COVID-19 PFIZER VACCINE 2021-06-14 00:00:00 Completed [facility] SARS-COV-2 COVID-19 PFIZER VACCINE 2021-06-14 00:00:00 Completed [facility] SARS-COV-2 COVID-19 PFIZER VACCINE 2021-06-14 00:00:00 Completed [facility] SARS-COV-2 COVID-19 PFIZER VACCINE 2021-06-14 00:00:00 Completed [facility] SARS-COV-2 COVID-19 PFIZER VACCINE 2021-06-14 00:00:00 Completed [facility] SARS-COV-2 COVID-19 PFIZER VACCINE 2021-06-14 00:00:00 Completed [facility] SARS-COV-2 COVID-19 PFIZER VACCINE 2021-06-14 00:00:00 Completed [facility] SARS-COV-2 COVID-19 PFIZER VACCINE 2021-06-14 00:00:00 Completed Influenza Virus Vaccine Recomb Quad IM, Preserv and ABX Free 18-64 YRS 2020-07-13 00:00:00 Completed [facility] Influenza Virus Vaccine Recomb Quad IM, Preserv and ABX Free 18-64 2020-07-13 00:00:00 Completed [facility] Influenza Virus Vaccine Recomb Quad IM, Preserv and ABX Free 18-64 YRS 2020-07-13 00:00:00 Completed [facility] Influenza Virus Vaccine Recomb Quad IM, Preserv and ABX Free 18-64 YRS 2020-07-13 00:00:00 Completed [facility] Influenza Virus Vaccine Recomb Quad IM, Preserv and ABX Free 18-64 YRS 2020-07-13 00:00:00 Completed [facility] Influenza Virus Vaccine Recomb Quad IM, Preserv and ABX Free 18-64 YRS 2020-07-13 00:00:00 Completed [facility] Influenza Virus Vaccine Recomb Quad IM, Preserv and ABX Free 18-64 YRS 2020-07-13 00:00:00 Completed [facility] Influenza Virus Vaccine Recomb Quad IM, Preserv and ABX Free 18-64 [facility] 2020-07-13 00:00:00 Completed [facility] Influenza Virus Vaccine Recomb Quad IM, Preserv and ABX Free 18-64 YRS 2020-07-13 00:00:00 Completed [facility] Influenza Virus Vaccine Recomb Quad IM, Preserv and ABX Free 1864 [facility] 2020-07-13 00:00:00 Completed [facility] Influenza Virus Vaccine Recomb Quad IM, Preserv and ABX Free 1864 [facility] 2020-07-13 00:00:00 Completed [facility] Influenza Virus Vaccine Recomb Quad IM, Preserv and ABX Free 1864 [facility] 2020-07-13 00:00:00 Completed [facility] Influenza Virus Vaccine Recomb Quad IM, Preserv and ABX Free 1864 [facility] 2020-07-13 00:00:00 Completed [facility] Influenza Virus Vaccine Recomb Quad IM, Preserv and ABX Free 1864 [facility] 2020-07-13 00:00:00 Completed [facility] Influenza Virus Vaccine Recomb Quad IM, Preserv and ABX Free 1864 [facility] 2020-07-13 00:00:00 Completed [facility] Influenza Virus Vaccine Recomb Quad IM, Preserv and ABX Free 1864 [facility] 2020-07-13 00:00:00 Completed [facility] Influenza Virus Vaccine Recomb Quad IM, Preserv and ABX Free 1864 [facility] 2020-07-13 00:00:00 Completed [facility] Influenza Virus Vaccine Recomb Quad IM, Preserv and ABX Free 1864 [facility] 2020-07-13 00:00:00 Completed [facility] Influenza Virus Vaccine Recomb Quad IM, Preserv and ABX Free 1864 [facility] 2020-07-13 00:00:00 Completed [facility] Influenza Virus Vaccine Recomb Quad IM, Preserv and ABX Free 1864 [facility] 2020-07-13 00:00:00 Completed [facility] Influenza Virus Vaccine Recomb Quad IM, Preserv and ABX Free 1864 [facility] 2020-07-13 00:00:00 Completed [facility] Influenza Virus Vaccine Recomb Quad IM, Preserv and ABX Free 1864 [facility] 2020-07-13 00:00:00 Completed [facility] Influenza Virus Vaccine Recomb Quad IM, Preserv and ABX Free 18-64 YRS 2020-07-13 00:00:00 Completed [facility] Influenza Virus Vaccine Recomb Quad IM, Preserv and ABX Free 18-64 YRS 2020-07-13 00:00:00 Completed [facility] Influenza Virus Vaccine Recomb Quad IM, Preserv and ABX Free 18-64 YRS 2020-07-13 00:00:00 Completed [facility] Influenza Virus Vaccine Recomb Quad IM, Preserv and ABX Free 18-64 YRS 2020-07-13 00:00:00 Completed [facility] Influenza Virus Vaccine Recomb Quad IM, Preserv and ABX Free 18-64 YRS 2020-07-13 00:00:00 Completed [facility] Twinrix (hep a/hep b) 2018-09-24 00:00:00 Completed [facility] Twinrix (hep a/hep b) 2018-09-24 00:00:00 Completed [facility] Twinrix (hep a/hep b) 2018-09-24 00:00:00 Completed [facility] Twinrix (hep a/hep b) 2018-09-24 00:00:00 Completed [facility] Twinrix (hep a/hep b) 2018-09-24 00:00:00 Completed [facility] Twinrix (hep a/hep b) 2018-09-24 00:00:00 Completed [facility] Twinrix (hep a/hep b) 2018-09-24 00:00:00 Completed [facility] Twinrix (hep a/hep b) 2018-09-24 00:00:00 Completed [facility] Twinrix (hep a/hep b) 2018-09-24 00:00:00 Completed [facility] Twinrix (hep a/hep b) 2018-09-24 00:00:00 Completed [facility] Twinrix (hep a/hep b) 2018-09-24 00:00:00 Completed [facility] Twinrix (hep a/hep b) 2018-09-24 00:00:00 Completed [facility] Twinrix (hep a/hep b) 2018-09-24 00:00:00 Completed [facility] Twinrix (hep a/hep b) 2018-09-24 00:00:00 Completed [facility] Twinrix (hep a/hep b) 2018-09-24 00:00:00 Completed [facility] Twinrix (hep a/hep b) 2018-09-24 00:00:00 Completed [facility] Twinrix (hep a/hep b) 2018-09-24 00:00:00 Completed [facility] Twinrix (hep a/hep b) 2018-09-24 00:00:00 Completed [facility] Twinrix (hep a/hep b) 2018-09-24 00:00:00 Completed [facility] Twinrix (hep a/hep b) 2018-09-24 00:00:00 Completed [facility] Twinrix (hep a/hep b) 2018-09-24 00:00:00 Completed [facility] Twinrix (hep a/hep b) 2018-09-24 00:00:00 Completed [facility] Twinrix (hep a/hep b) 2018-09-24 00:00:00 Completed [facility] Twinrix (hep a/hep b) 2018-09-24 00:00:00 Completed [facility] Twinrix (hep a/hep b) 2018-09-24 00:00:00 Completed [facility] Twinrix (hep a/hep b) 2018-09-24 00:00:00 Completed [facility] Twinrix (hep a/hep b) 2018-09-24 00:00:00 Completed Influenza Virus Vaccine Quad .5 mL IM 6+ MO 2018-06-11 00:00:00 Completed [facility] Twinrix (hep a/hep b) 2018-06-11 00:00:00 Completed [facility] Influenza Virus Vaccine Quad .5 mL IM 6+ MO 2018-06-11 00:00:00 Completed [facility] Twinrix (hep a/hep b) 2018-06-11 00:00:00 Completed [facility] Influenza Virus Vaccine Quad .5 mL IM 6+ MO 2018-06-11 00:00:00 Completed [facility] Twinrix (hep a/hep b) 2018-06-11 00:00:00 Completed [facility] Influenza Virus Vaccine Quad .5 mL IM 6+ MO 2018-06-11 00:00:00 Completed [facility] Twinrix (hep a/hep b) 2018-06-11 00:00:00 Completed [facility] Influenza Virus Vaccine Quad .5 mL IM 6+ MO 2018-06-11 00:00:00 Completed [facility] Twinrix (hep a/hep b) 2018-06-11 00:00:00 Completed [facility] Influenza Virus Vaccine Quad .5 mL IM 6+ MO 2018-06-11 00:00:00 Completed [facility] Twinrix (hep a/hep b) 2018-06-11 00:00:00 Completed [facility] Influenza Virus Vaccine Quad .5 mL IM 6+ MO 2018-06-11 00:00:00 Completed [facility] Twinrix (hep a/hep b) 2018-06-11 00:00:00 Completed [facility] Influenza Virus Vaccine Quad .5 mL IM 6+ MO 2018-06-11 00:00:00 Completed [facility] Twinrix (hep a/hep b) 2018-06-11 00:00:00 Completed [facility] Influenza Virus Vaccine Quad .5 mL IM 6+ MO 2018-06-11 00:00:00 Completed [facility] Twinrix (hep a/hep b) 2018-06-11 00:00:00 Completed [facility] Influenza Virus Vaccine Quad .5 mL IM 6+ MO 2018-06-11 00:00:00 Completed [facility] Twinrix (hep a/hep b) 2018-06-11 00:00:00 Completed [facility] Influenza Virus Vaccine Quad .5 mL IM 6+ MO 2018-06-11 00:00:00 Completed [facility] Twinrix (hep a/hep b) 2018-06-11 00:00:00 Completed [facility] Influenza Virus Vaccine Quad .5 mL IM 6+ MO 2018-06-11 00:00:00 Completed [facility] Twinrix (hep a/hep b) 2018-06-11 00:00:00 Completed [facility] Influenza Virus Vaccine Quad .5 mL IM 6+ MO 2018-06-11 00:00:00 Completed [facility] Twinrix (hep a/hep b) 2018-06-11 00:00:00 Completed [facility] Influenza Virus Vaccine Quad .5 mL IM 6+ MO 2018-06-11 00:00:00 Completed [facility] Twinrix (hep a/hep b) 2018-06-11 00:00:00 Completed [facility] Influenza Virus Vaccine Quad .5 mL IM 6+ MO 2018-06-11 00:00:00 Completed [facility] Twinrix (hep a/hep b) 2018-06-11 00:00:00 Completed [facility] Influenza Virus Vaccine Quad .5 mL IM 6+ MO 2018-06-11 00:00:00 Completed [facility] Twinrix (hep a/hep b) 2018-06-11 00:00:00 Completed [facility] Influenza Virus Vaccine Quad .5 mL IM 6+ MO 2018-06-11 00:00:00 Completed [facility] Twinrix (hep a/hep b) 2018-06-11 00:00:00 Completed [facility] Influenza Virus Vaccine Quad .5 mL IM 6+ MO 2018-06-11 00:00:00 Completed [facility] Twinrix (hep a/hep b) 2018-06-11 00:00:00 Completed [facility] Influenza Virus Vaccine Quad .5 mL IM 6+ MO 2018-06-11 00:00:00 Completed [facility] Twinrix (hep a/hep b) 2018-06-11 00:00:00 Completed [facility] Influenza Virus Vaccine Quad .5 mL IM 6+ MO 2018-06-11 00:00:00 Completed [facility] Twinrix (hep a/hep b) 2018-06-11 00:00:00 Completed [facility] Influenza Virus Vaccine Quad .5 mL IM 6+ MO 2018-06-11 00:00:00 Completed [facility] Twinrix (hep a/hep b) 2018-06-11 00:00:00 Completed [facility] Influenza Virus Vaccine Quad .5 mL IM 6+ MO 2018-06-11 00:00:00 Completed [facility] Twinrix (hep a/hep b) 2018-06-11 00:00:00 Completed [facility] Influenza Virus Vaccine Quad .5 mL IM 6+ MO 2018-06-11 00:00:00 Completed [facility] Twinrix (hep a/hep b) 2018-06-11 00:00:00 Completed [facility] Influenza Virus Vaccine Quad .5 mL IM 6+ MO 2018-06-11 00:00:00 Completed [facility] Twinrix (hep a/hep b) 2018-06-11 00:00:00 Completed [facility] Influenza Virus Vaccine Quad .5 mL IM 6+ MO 2018-06-11 00:00:00 Completed [facility] Twinrix (hep a/hep b) 2018-06-11 00:00:00 Completed [facility] Influenza Virus Vaccine Quad .5 mL IM 6+ MO 2018-06-11 00:00:00 Completed [facility] Twinrix (hep a/hep b) 2018-06-11 00:00:00 Completed [facility] Influenza Virus Vaccine Quad .5 mL IM 6+ MO (FLUZONE/FLULAVAL/F LUARIX) 2018-06-11 00:00:00 Completed Twinrix (hep a/hep b) 2018-06-11 00:00:00 Completed Pneumococcal Polysaccharide, PPSV23 (PNEUMOVAX) 2017-10-09 00:00:00 Completed [facility] TDAP (ADACEL) VACCINE 2017-10-09 00:00:00 Completed [facility] Twinrix (hep a/hep b) 2017-10-09 00:00:00 Completed [facility] Pneumococcal Polysaccharide, PPSV23 (PNEUMOVAX) 2017-10-09 00:00:00 Completed [facility] TDAP (ADACEL) VACCINE 2017-10-09 00:00:00 Completed [facility] Twinrix (hep a/hep b) 2017-10-09 00:00:00 Completed [facility] Pneumococcal Polysaccharide, PPSV23 (PNEUMOVAX) 2017-10-09 00:00:00 Completed [facility] TDAP (ADACEL) VACCINE 2017-10-09 00:00:00 Completed [facility] Twinrix (hep a/hep b) 2017-10-09 00:00:00 Completed [facility] Pneumococcal Polysaccharide, PPSV23 (PNEUMOVAX) 2017-10-09 00:00:00 Completed [facility] TDAP (ADACEL) VACCINE 2017-10-09 00:00:00 Completed [facility] Twinrix (hep a/hep b) 2017-10-09 00:00:00 Completed [facility] Pneumococcal Polysaccharide, PPSV23 (PNEUMOVAX) 2017-10-09 00:00:00 Completed [facility] TDAP (ADACEL) VACCINE 2017-10-09 00:00:00 Completed [facility] Twinrix (hep a/hep b) 2017-10-09 00:00:00 Completed [facility] Pneumococcal Polysaccharide, PPSV23 (PNEUMOVAX) 2017-10-09 00:00:00 Completed [facility] TDAP (ADACEL) VACCINE 2017-10-09 00:00:00 Completed [facility] Twinrix (hep a/hep b) 2017-10-09 00:00:00 Completed [facility] Pneumococcal Polysaccharide, PPSV23 (PNEUMOVAX) 2017-10-09 00:00:00 Completed [facility] TDAP (ADACEL) VACCINE 2017-10-09 00:00:00 Completed [facility] Twinrix (hep a/hep b) 2017-10-09 00:00:00 Completed [facility] Pneumococcal Polysaccharide, PPSV23 (PNEUMOVAX) 2017-10-09 00:00:00 Completed [facility] TDAP (ADACEL) VACCINE 2017-10-09 00:00:00 Completed [facility] Twinrix (hep a/hep b) 2017-10-09 00:00:00 Completed [facility] Pneumococcal Polysaccharide, PPSV23 (PNEUMOVAX) 2017-10-09 00:00:00 Completed [facility] TDAP (ADACEL) VACCINE 2017-10-09 00:00:00 Completed [facility] Twinrix (hep a/hep b) 2017-10-09 00:00:00 Completed [facility] Pneumococcal Polysaccharide, PPSV23 (PNEUMOVAX) 2017-10-09 00:00:00 Completed [facility] TDAP (ADACEL) VACCINE 2017-10-09 00:00:00 Completed [facility] Twinrix (hep a/hep b) 2017-10-09 00:00:00 Completed [facility] Pneumococcal Polysaccharide, PPSV23 (PNEUMOVAX) 2017-10-09 00:00:00 Completed [facility] TDAP (ADACEL) VACCINE 2017-10-09 00:00:00 Completed [facility] Twinrix (hep a/hep b) 2017-10-09 00:00:00 Completed [facility] Pneumococcal Polysaccharide, PPSV23 (PNEUMOVAX) 2017-10-09 00:00:00 Completed [facility] TDAP (ADACEL) VACCINE 2017-10-09 00:00:00 Completed [facility] Twinrix (hep a/hep b) 2017-10-09 00:00:00 Completed [facility] Pneumococcal Polysaccharide, PPSV23 (PNEUMOVAX) 2017-10-09 00:00:00 Completed [facility] TDAP (ADACEL) VACCINE 2017-10-09 00:00:00 Completed [facility] Twinrix (hep a/hep b) 2017-10-09 00:00:00 Completed [facility] Pneumococcal Polysaccharide, PPSV23 (PNEUMOVAX) 2017-10-09 00:00:00 Completed [facility] TDAP (ADACEL) VACCINE 2017-10-09 00:00:00 Completed [facility] Twinrix (hep a/hep b) 2017-10-09 00:00:00 Completed [facility] Pneumococcal Polysaccharide, PPSV23 (PNEUMOVAX) 2017-10-09 00:00:00 Completed [facility] TDAP (ADACEL) VACCINE 2017-10-09 00:00:00 Completed [facility] Twinrix (hep a/hep b) 2017-10-09 00:00:00 Completed [facility] Pneumococcal Polysaccharide, PPSV23 (PNEUMOVAX) 2017-10-09 00:00:00 Completed [facility] TDAP (ADACEL) VACCINE 2017-10-09 00:00:00 Completed [facility] Twinrix (hep a/hep b) 2017-10-09 00:00:00 Completed [facility] Pneumococcal Polysaccharide, PPSV23 (PNEUMOVAX) 2017-10-09 00:00:00 Completed [facility] TDAP (ADACEL) VACCINE 2017-10-09 00:00:00 Completed [facility] Twinrix (hep a/hep b) 2017-10-09 00:00:00 Completed [facility] Pneumococcal Polysaccharide, PPSV23 (PNEUMOVAX) 2017-10-09 00:00:00 Completed [facility] TDAP (ADACEL) VACCINE 2017-10-09 00:00:00 Completed [facility] Twinrix (hep a/hep b) 2017-10-09 00:00:00 Completed [facility] Pneumococcal Polysaccharide, PPSV23 (PNEUMOVAX) 2017-10-09 00:00:00 Completed [facility] TDAP (ADACEL) VACCINE 2017-10-09 00:00:00 Completed [facility] Twinrix (hep a/hep b) 2017-10-09 00:00:00 Completed [facility] Pneumococcal Polysaccharide, PPSV23 (PNEUMOVAX) 2017-10-09 00:00:00 Completed [facility] TDAP (ADACEL) VACCINE 2017-10-09 00:00:00 Completed [facility] Twinrix (hep a/hep b) 2017-10-09 00:00:00 Completed [facility] Pneumococcal Polysaccharide, PPSV23 (PNEUMOVAX) 2017-10-09 00:00:00 Completed [facility] TDAP (ADACEL) VACCINE 2017-10-09 00:00:00 Completed [facility] Twinrix (hep a/hep b) 2017-10-09 00:00:00 Completed [facility] Pneumococcal Polysaccharide, PPSV23 (PNEUMOVAX) 2017-10-09 00:00:00 Completed [facility] TDAP (ADACEL) VACCINE 2017-10-09 00:00:00 Completed [facility] Twinrix (hep a/hep b) 2017-10-09 00:00:00 Completed [facility] Pneumococcal Polysaccharide, PPSV23 (PNEUMOVAX) 2017-10-09 00:00:00 Completed [facility] TDAP (ADACEL) VACCINE 2017-10-09 00:00:00 Completed [facility] Twinrix (hep a/hep b) 2017-10-09 00:00:00 Completed [facility] Pneumococcal Polysaccharide, PPSV23 (PNEUMOVAX) 2017-10-09 00:00:00 Completed [facility] TDAP (ADACEL) VACCINE 2017-10-09 00:00:00 Completed [facility] Twinrix (hep a/hep b) 2017-10-09 00:00:00 Completed [facility] Pneumococcal Polysaccharide, PPSV23 (PNEUMOVAX) 2017-10-09 00:00:00 Completed [facility] TDAP (ADACEL) VACCINE 2017-10-09 00:00:00 Completed [facility] Twinrix (hep a/hep b) 2017-10-09 00:00:00 Completed [facility] Pneumococcal Polysaccharide, PPSV23 (PNEUMOVAX) 2017-10-09 00:00:00 Completed [facility] TDAP (ADACEL) VACCINE 2017-10-09 00:00:00 Completed [facility] Twinrix (hep a/hep b) 2017-10-09 00:00:00 Completed [facility] Pneumococcal Polysaccharide, PPSV23 (PNEUMOVAX) 2017-10-09 00:00:00 Completed [facility] TDAP (ADACEL) VACCINE 2017-10-09 00:00:00 Completed Twinrix (hep a/hep b) 2017-10-09 00:00:00 Completed Pneumococcal 13 Conjugate, PCV13 (Prevnar 13) 2017-06-05 00:00:00 Completed [facility] Influenza Virus Vaccine Quad ID 18-64 YRS 2017-06-05 00:00:00 Completed [facility] Pneumococcal 13 Conjugate, PCV13 (Prevnar 13) 2017-06-05 00:00:00 Completed [facility] Influenza Virus Vaccine Quad ID 18-64 YRS 2017-06-05 00:00:00 Completed [facility] Pneumococcal 13 Conjugate, PCV13 (Prevnar 13) 2017-06-05 00:00:00 Completed [facility] Influenza Virus Vaccine Quad ID 18-64 YRS 2017-06-05 00:00:00 Completed [facility] Pneumococcal 13 Conjugate, PCV13 (Prevnar 13) 2017-06-05 00:00:00 Completed [facility] Influenza Virus Vaccine Quad ID 18-64 YRS 2017-06-05 00:00:00 Completed [facility] Pneumococcal 13 Conjugate, PCV13 (Prevnar 13) 2017-06-05 00:00:00 Completed [facility] Influenza Virus Vaccine Quad ID 18-64 YRS 2017-06-05 00:00:00 Completed [facility] Pneumococcal 13 Conjugate, PCV13 (Prevnar 13) 2017-06-05 00:00:00 Completed [facility] Influenza Virus Vaccine Quad ID 18-64 YRS 2017-06-05 00:00:00 Completed [facility] Pneumococcal 13 Conjugate, PCV13 (Prevnar 13) 2017-06-05 00:00:00 Completed [facility] Influenza Virus Vaccine Quad ID 18-64 YRS 2017-06-05 00:00:00 Completed [facility] Pneumococcal 13 Conjugate, PCV13 (Prevnar 13) 2017-06-05 00:00:00 Completed [facility] Influenza Virus Vaccine Quad ID 18-64 YRS 2017-06-05 00:00:00 Completed [facility] Pneumococcal 13 Conjugate, PCV13 (Prevnar 13) 2017-06-05 00:00:00 Completed [facility] Influenza Virus Vaccine Quad ID 18-64 YRS 2017-06-05 00:00:00 Completed [facility] Pneumococcal 13 Conjugate, PCV13 (Prevnar 13) 2017-06-05 00:00:00 Completed [facility] Influenza Virus Vaccine Quad ID 18-64 YRS 2017-06-05 00:00:00 Completed [facility] Pneumococcal 13 Conjugate, PCV13 (Prevnar 13) 2017-06-05 00:00:00 Completed [facility] Influenza Virus Vaccine Quad ID 18-64 YRS 2017-06-05 00:00:00 Completed [facility] Pneumococcal 13 Conjugate, PCV13 (Prevnar 13) 2017-06-05 00:00:00 Completed [facility] Influenza Virus Vaccine Quad ID 18-64 YRS 2017-06-05 00:00:00 Completed [facility] Pneumococcal 13 Conjugate, PCV13 (Prevnar 13) 2017-06-05 00:00:00 Completed [facility] Influenza Virus Vaccine Quad ID 18-64 YRS 2017-06-05 00:00:00 Completed [facility] Pneumococcal 13 Conjugate, PCV13 (Prevnar 13) 2017-06-05 00:00:00 Completed [facility] Influenza Virus Vaccine Quad ID 18-64 YRS 2017-06-05 00:00:00 Completed [facility] Pneumococcal 13 Conjugate, PCV13 (Prevnar 13) 2017-06-05 00:00:00 Completed [facility] Influenza Virus Vaccine Quad ID 18-64 YRS 2017-06-05 00:00:00 Completed [facility] Pneumococcal 13 Conjugate, PCV13 (Prevnar 13) 2017-06-05 00:00:00 Completed [facility] Influenza Virus Vaccine Quad ID 18-64 YRS 2017-06-05 00:00:00 Completed [facility] Pneumococcal 13 Conjugate, PCV13 (Prevnar 13) 2017-06-05 00:00:00 Completed [facility] Influenza Virus Vaccine Quad ID 18-64 YRS 2017-06-05 00:00:00 Completed [facility] Pneumococcal 13 Conjugate, PCV13 (Prevnar 13) 2017-06-05 00:00:00 Completed [facility] Influenza Virus Vaccine Quad ID 18-64 YRS 2017-06-05 00:00:00 Completed [facility] Pneumococcal 13 Conjugate, PCV13 (Prevnar 13) 2017-06-05 00:00:00 Completed [facility] Influenza Virus Vaccine Quad ID 18-64 YRS 2017-06-05 00:00:00 Completed [facility] Pneumococcal 13 Conjugate, PCV13 (Prevnar 13) 2017-06-05 00:00:00 Completed [facility] Influenza Virus Vaccine Quad ID 18-64 YRS 2017-06-05 00:00:00 Completed [facility] Pneumococcal 13 Conjugate, PCV13 (Prevnar 13) 2017-06-05 00:00:00 Completed [facility] Influenza Virus Vaccine Quad ID 18-64 YRS 2017-06-05 00:00:00 Completed [facility] Pneumococcal 13 Conjugate, PCV13 (Prevnar 13) 2017-06-05 00:00:00 Completed [facility] Influenza Virus Vaccine Quad ID 18-64 YRS 2017-06-05 00:00:00 Completed [facility] Pneumococcal 13 Conjugate, PCV13 (Prevnar 13) 2017-06-05 00:00:00 Completed [facility] Influenza Virus Vaccine Quad ID 18-64 YRS 2017-06-05 00:00:00 Completed [facility] Pneumococcal 13 Conjugate, PCV13 (Prevnar 13) 2017-06-05 00:00:00 Completed [facility] Influenza Virus Vaccine Quad ID 18-64 YRS 2017-06-05 00:00:00 Completed [facility] Pneumococcal 13 Conjugate, PCV13 (Prevnar 13) 2017-06-05 00:00:00 Completed [facility] Influenza Virus Vaccine Quad ID 18-64 YRS 2017-06-05 00:00:00 Completed [facility] Pneumococcal 13 Conjugate, PCV13 (Prevnar 13) 2017-06-05 00:00:00 Completed [facility] Influenza Virus Vaccine Quad ID 18-64 YRS 2017-06-05 00:00:00 Completed [facility] Pneumococcal 13 Conjugate, PCV13 (Prevnar 13) 2017-06-05 00:00:00 Completed [facility] Influenza Virus Vaccine Quad ID 18-64 YRS 2017-06-05 00:00:00 Completed Influenza Virus Vaccine Quad IM, Preserv and ABX Free 6 MO-64 YRS (FLUCELVAX) Unknown Completed [facility] SARS-COV-2 COVID-19 VACCINE 12 YRS+, BIVALENT 0.5ML, IM, (MODERNA-BLUE TOP) Unknown Completed [facility] Pneumococcal 13 Conjugate, PCV13 (Prevnar 13) Unknown Completed [facility] Influenza Virus Vaccine Quad ID 18-64 YRS Unknown Completed [facility] Pneumococcal Polysaccharide, PPSV23 (PNEUMOVAX) Unknown Completed [facility] TDAP (ADACEL) VACCINE Unknown Completed [facility] Twinrix (hep a/hep b) Unknown Completed [facility] Influenza Virus Vaccine Quad .5 mL IM 6+ MO (FLUZONE/FLULAVAL/F LUARIX) Unknown Completed [facility] Influenza Virus Vaccine Recomb Quad IM, Preserv and ABX Free 18-64 YRS Unknown Completed [facility] SARS-COV-2 COVID-19 PFIZER VACCINE Unknown Completed [facility] Influenza Virus Vaccine Quad IM, Preserv and ABX Free 6 MO-64 YRS (FLUCELVAX) Unknown Completed [facility] SARS-COV-2 COVID-19 VACCINE 12 YRS+, BIVALENT 0.5ML, IM, (MODERNA-BLUE TOP) Unknown Completed [facility] Pneumococcal 13 Conjugate, PCV13 (Prevnar 13) Unknown Completed [facility] Influenza Virus Vaccine Quad ID 18-64 YRS Unknown Completed [facility] Pneumococcal Polysaccharide, PPSV23 (PNEUMOVAX) Unknown Completed [facility] TDAP (ADACEL) VACCINE Unknown Completed [facility] Twinrix (hep a/hep b) Unknown Completed [facility] Influenza Virus Vaccine Quad .5 mL IM 6+ MO (FLUZONE/FLULAVAL/F LUARIX) Unknown Completed [facility] Influenza Virus Vaccine Recomb Quad IM, Preserv and ABX Free 18-64 YRS Unknown Completed [facility] SARS-COV-2 COVID-19 PFIZER VACCINE Unknown Completed [facility] Influenza Virus Vaccine Quad IM, Preserv and ABX Free 6 MO-64 YRS (FLUCELVAX) Unknown Completed [facility] SARS-COV-2 COVID-19 VACCINE 12 YRS+, BIVALENT 0.5ML, IM, (MODERNA-BLUE TOP) Unknown Completed [facility] Pneumococcal 13 Conjugate, PCV13 (Prevnar 13) Unknown Completed [facility] Influenza Virus Vaccine Quad ID 18-64 YRS Unknown Completed [facility] Pneumococcal Polysaccharide, PPSV23 (PNEUMOVAX) Unknown Completed [facility] TDAP (ADACEL) VACCINE Unknown Completed [facility] Twinrix (hep a/hep b) Unknown Completed [facility] Influenza Virus Vaccine Quad .5 mL IM 6+ MO (FLUZONE/FLULAVAL/F LUARIX) Unknown Completed [facility] Influenza Virus Vaccine Recomb Quad IM, Preserv and ABX Free 18-64 YRS Unknown Completed [facility] SARS-COV-2 COVID-19 PFIZER VACCINE Unknown Completed [facility] Influenza Virus Vaccine Quad IM, Preserv and ABX Free 6 MO-64 YRS (FLUCELVAX) Unknown Completed [facility] SARS-COV-2 COVID-19 VACCINE 12 YRS+, BIVALENT 0.5ML, IM, (MODERNA-BLUE TOP) Unknown Completed [facility] Pneumococcal 13 Conjugate, PCV13 (Prevnar 13) Unknown Completed [facility] Influenza Virus Vaccine Quad ID 18-64 YRS Unknown Completed [facility] Pneumococcal Polysaccharide, PPSV23 (PNEUMOVAX) Unknown Completed [facility] TDAP (ADACEL) VACCINE Unknown Completed [facility] Twinrix (hep a/hep b) Unknown Completed [facility] Influenza Virus Vaccine Quad .5 mL IM 6+ MO (FLUZONE/FLULAVAL/F LUARIX) Unknown Completed [facility] Influenza Virus Vaccine Recomb Quad IM, Preserv and ABX Free 18-64 YRS Unknown Completed [facility] SARS-COV-2 COVID-19 PFIZER VACCINE Unknown Completed [facility] Influenza Virus Vaccine Quad IM, Preserv and ABX Free 6 MO-64 YRS (FLUCELVAX) Unknown Completed [facility] SARS-COV-2 COVID-19 VACCINE 12 YRS+, BIVALENT 0.5ML, IM, (MODERNA-BLUE TOP) Unknown Completed [facility] Pneumococcal 13 Conjugate, PCV13 (Prevnar 13) Unknown Completed [facility] Influenza Virus Vaccine Quad ID 18-64 YRS Unknown Completed [facility] Pneumococcal Polysaccharide, PPSV23 (PNEUMOVAX) Unknown Completed [facility] TDAP (ADACEL) VACCINE Unknown Completed [facility] Twinrix (hep a/hep b) Unknown Completed [facility] Influenza Virus Vaccine Quad .5 mL IM 6+ MO (FLUZONE/FLULAVAL/F LUARIX) Unknown Completed [facility] Influenza Virus Vaccine Recomb Quad IM, Preserv and ABX Free 18-64 YRS Unknown Completed [facility] SARS-COV-2 COVID-19 PFIZER VACCINE Unknown Completed [facility] Influenza Virus Vaccine Quad IM, Preserv and ABX Free 6 MO-64 YRS (FLUCELVAX) Unknown Completed [facility] SARS-COV-2 COVID-19 VACCINE 12 YRS+, BIVALENT 0.5ML, IM, (MODERNA-BLUE TOP) Unknown Completed [facility] Pneumococcal 13 Conjugate, PCV13 (Prevnar 13) Unknown Completed [facility] Influenza Virus Vaccine Quad ID 18-64 YRS Unknown Completed [facility] Pneumococcal Polysaccharide, PPSV23 (PNEUMOVAX) Unknown Completed [facility] TDAP (ADACEL) VACCINE Unknown Completed [facility] Twinrix (hep a/hep b) Unknown Completed [facility] Influenza Virus Vaccine Quad .5 mL IM 6+ MO (FLUZONE/FLULAVAL/F LUARIX) Unknown Completed [facility] Influenza Virus Vaccine Recomb Quad IM, Preserv and ABX Free 18-64 YRS Unknown Completed [facility] SARS-COV-2 COVID-19 PFIZER VACCINE Unknown Completed [facility] Influenza Virus Vaccine Quad IM, Preserv and ABX Free 6 MO-64 YRS (FLUCELVAX) Unknown Completed [facility] SARS-COV-2 COVID-19 VACCINE 12 YRS+, BIVALENT 0.5ML, IM, (MODERNA-BLUE TOP) Unknown Completed [facility] Pneumococcal 13 Conjugate, PCV13 (Prevnar 13) Unknown Completed [facility] Influenza Virus Vaccine Quad ID 18-64 YRS Unknown Completed [facility] Pneumococcal Polysaccharide, PPSV23 (PNEUMOVAX) Unknown Completed [facility] TDAP (ADACEL) VACCINE Unknown Completed [facility] Twinrix (hep a/hep b) Unknown Completed [facility] Influenza Virus Vaccine Quad .5 mL IM 6+ MO (FLUZONE/FLULAVAL/F LUARIX) Unknown Completed [facility] Influenza Virus Vaccine Recomb Quad IM, Preserv and ABX Free 18-64 YRS Unknown Completed [facility] SARS-COV-2 COVID-19 PFIZER VACCINE Unknown Completed [facility] Influenza Virus Vaccine Quad IM, Preserv and ABX Free 6 MO-64 YRS (FLUCELVAX) Unknown Completed [facility] SARS-COV-2 COVID-19 VACCINE 12 YRS+, BIVALENT 0.5ML, IM, (MODERNA-BLUE TOP) Unknown Completed [facility] Pneumococcal 13 Conjugate, PCV13 (Prevnar 13) Unknown Completed [facility] Influenza Virus Vaccine Quad ID 18-64 YRS Unknown Completed [facility] Pneumococcal Polysaccharide, PPSV23 (PNEUMOVAX) Unknown Completed [facility] TDAP (ADACEL) VACCINE Unknown Completed [facility] Twinrix (hep a/hep b) Unknown Completed [facility] Influenza Virus Vaccine Quad .5 mL IM 6+ MO (FLUZONE/FLULAVAL/F LUARIX) Unknown Completed [facility] Influenza Virus Vaccine Recomb Quad IM, Preserv and ABX Free 18-64 YRS Unknown Completed [facility] SARS-COV-2 COVID-19 PFIZER VACCINE Unknown Completed [facility] Influenza Virus Vaccine Quad IM, Preserv and ABX Free 6 MO-64 YRS (FLUCELVAX) Unknown Completed [facility] SARS-COV-2 COVID-19 VACCINE 12 YRS+, BIVALENT 0.5ML, IM, (MODERNA-BLUE TOP) Unknown Completed [facility] Pneumococcal 13 Conjugate, PCV13 (Prevnar 13) Unknown Completed [facility] Influenza Virus Vaccine Quad ID 18-64 YRS Unknown Completed [facility] Pneumococcal Polysaccharide, PPSV23 (PNEUMOVAX) Unknown Completed [facility] TDAP (ADACEL) VACCINE Unknown Completed [facility] Twinrix (hep a/hep b) Unknown Completed [facility] Influenza Virus Vaccine Quad .5 mL IM 6+ MO (FLUZONE/FLULAVAL/F LUARIX) Unknown Completed [facility] Influenza Virus Vaccine Recomb Quad IM, Preserv and ABX Free 18-64 YRS Unknown Completed [facility] SARS-COV-2 COVID-19 PFIZER VACCINE Unknown Completed [facility] Influenza Virus Vaccine Quad IM, Preserv and ABX Free 6 MO-64 YRS (FLUCELVAX) Unknown Completed [facility] SARS-COV-2 COVID-19 VACCINE 12 YRS+, BIVALENT 0.5ML, IM, (MODERNA-BLUE TOP) Unknown Completed [facility] Pneumococcal 13 Conjugate, PCV13 (Prevnar 13) Unknown Completed [facility] Influenza Virus Vaccine Quad ID 18-64 YRS Unknown Completed [facility] Pneumococcal Polysaccharide, PPSV23 (PNEUMOVAX) Unknown Completed [facility] TDAP (ADACEL) VACCINE Unknown Completed [facility] Twinrix (hep a/hep b) Unknown Completed [facility] Influenza Virus Vaccine Quad .5 mL IM 6+ MO (FLUZONE/FLULAVAL/F LUARIX) Unknown Completed [facility] Influenza Virus Vaccine Recomb Quad IM, Preserv and ABX Free 18-64 YRS Unknown Completed [facility] SARS-COV-2 COVID-19 PFIZER VACCINE Unknown Completed [facility] Influenza Virus Vaccine Quad IM, Preserv and ABX Free 6 MO-64 YRS (FLUCELVAX) Unknown Completed [facility] SARS-COV-2 COVID-19 VACCINE 12 YRS+, BIVALENT 0.5ML, IM, (MODERNA-BLUE TOP) Unknown Completed [facility] Pneumococcal 13 Conjugate, PCV13 (Prevnar 13) Unknown Completed [facility] Influenza Virus Vaccine Quad ID 18-64 YRS Unknown Completed [facility] Pneumococcal Polysaccharide, PPSV23 (PNEUMOVAX) Unknown Completed [facility] TDAP (ADACEL) VACCINE Unknown Completed [facility] Twinrix (hep a/hep b) Unknown Completed [facility] Influenza Virus Vaccine Quad .5 mL IM 6+ MO (FLUZONE/FLULAVAL/F LUARIX) Unknown Completed [facility] Influenza Virus Vaccine Recomb Quad IM, Preserv and ABX Free 18-64 YRS Unknown Completed [facility] SARS-COV-2 COVID-19 PFIZER VACCINE Unknown Completed [facility] Influenza Virus Vaccine Quad IM, Preserv and ABX Free 6 MO-64 YRS (FLUCELVAX) Unknown Completed [facility] SARS-COV-2 COVID-19 VACCINE 12 YRS+, BIVALENT 0.5ML, IM, (MODERNA-BLUE TOP) Unknown Completed [facility] Pneumococcal 13 Conjugate, PCV13 (Prevnar 13) Unknown Completed [facility] Influenza Virus Vaccine Quad ID 18-64 YRS Unknown Completed [facility] Pneumococcal Polysaccharide, PPSV23 (PNEUMOVAX) Unknown Completed [facility] TDAP (ADACEL) VACCINE Unknown Completed [facility] Twinrix (hep a/hep b) Unknown Completed [facility] Influenza Virus Vaccine Quad .5 mL IM 6+ MO (FLUZONE/FLULAVAL/F LUARIX) Unknown Completed [facility] Influenza Virus Vaccine Recomb Quad IM, Preserv and ABX Free 18-64 YRS Unknown Completed [facility] SARS-COV-2 COVID-19 PFIZER VACCINE Unknown Completed [facility] Influenza Virus Vaccine Quad IM, Preserv and ABX Free 6 MO-64 YRS (FLUCELVAX) Unknown Completed [facility] SARS-COV-2 COVID-19 VACCINE 12 YRS+, BIVALENT 0.5ML, IM, (MODERNA-BLUE TOP) Unknown Completed [facility] Pneumococcal 13 Conjugate, PCV13 (Prevnar 13) Unknown Completed [facility] Influenza Virus Vaccine Quad ID 18-64 YRS Unknown Completed [facility] Pneumococcal Polysaccharide, PPSV23 (PNEUMOVAX) Unknown Completed [facility] TDAP (ADACEL) VACCINE Unknown Completed [facility] Twinrix (hep a/hep b) Unknown Completed [facility] Influenza Virus Vaccine Quad .5 mL IM 6+ MO (FLUZONE/FLULAVAL/F LUARIX) Unknown Completed [facility] Influenza Virus Vaccine Recomb Quad IM, Preserv and ABX Free 18-64 YRS Unknown Completed [facility] SARS-COV-2 COVID-19 PFIZER VACCINE Unknown Completed [facility] Influenza Virus Vaccine Quad IM, Preserv and ABX Free 6 MO-64 YRS (FLUCELVAX) Unknown Completed [facility] SARS-COV-2 COVID-19 VACCINE 12 YRS+, BIVALENT 0.5ML, IM, (MODERNA-BLUE TOP) Unknown Completed [facility] Pneumococcal 13 Conjugate, PCV13 (Prevnar 13) Unknown Completed [facility] Influenza Virus Vaccine Quad ID 18-64 YRS Unknown Completed [facility] Pneumococcal Polysaccharide, PPSV23 (PNEUMOVAX) Unknown Completed [facility] TDAP (ADACEL) VACCINE Unknown Completed [facility] Twinrix (hep a/hep b) Unknown Completed [facility] Influenza Virus Vaccine Quad .5 mL IM 6+ MO (FLUZONE/FLULAVAL/F LUARIX) Unknown Completed [facility] Influenza Virus Vaccine Recomb Quad IM, Preserv and ABX Free 18-64 YRS Unknown Completed [facility] SARS-COV-2 COVID-19 PFIZER VACCINE Unknown Completed [facility] Influenza Virus Vaccine Quad IM, Preserv and ABX Free 6 MO-64 YRS (FLUCELVAX) Unknown Completed [facility] SARS-COV-2 COVID-19 VACCINE 12 YRS+, BIVALENT 0.5ML, IM, (MODERNA-BLUE TOP) Unknown Completed [facility] Pneumococcal 13 Conjugate, PCV13 (Prevnar 13) Unknown Completed [facility] Influenza Virus Vaccine Quad ID 18-64 YRS Unknown Completed [facility] Pneumococcal Polysaccharide, PPSV23 (PNEUMOVAX) Unknown Completed [facility] TDAP (ADACEL) VACCINE Unknown Completed [facility] Twinrix (hep a/hep b) Unknown Completed [facility] Influenza Virus Vaccine Quad .5 mL IM 6+ MO (FLUZONE/FLULAVAL/F LUARIX) Unknown Completed [facility] Influenza Virus Vaccine Recomb Quad IM, Preserv and ABX Free 18-64 YRS Unknown Completed [facility] SARS-COV-2 COVID-19 PFIZER VACCINE Unknown Completed [facility] Influenza Virus Vaccine Quad IM, Preserv and ABX Free 6 MO-64 YRS (FLUCELVAX) Unknown Completed [facility] SARS-COV-2 COVID-19 VACCINE 12 YRS+, BIVALENT 0.5ML, IM, (MODERNA-BLUE TOP) Unknown Completed [facility] Pneumococcal 13 Conjugate, PCV13 (Prevnar 13) Unknown Completed [facility] Influenza Virus Vaccine Quad ID 18-64 YRS Unknown Completed [facility] Pneumococcal Polysaccharide, PPSV23 (PNEUMOVAX) Unknown Completed [facility] TDAP (ADACEL) VACCINE Unknown Completed [facility] Twinrix (hep a/hep b) Unknown Completed [facility] Influenza Virus Vaccine Quad .5 mL IM 6+ MO (FLUZONE/FLULAVAL/F LUARIX) Unknown Completed [facility] Influenza Virus Vaccine Recomb Quad IM, Preserv and ABX Free 18-64 YRS Unknown Completed [facility] SARS-COV-2 COVID-19 PFIZER VACCINE Unknown Completed [facility] Influenza Virus Vaccine Quad IM, Preserv and ABX Free 6 MO-64 YRS (FLUCELVAX) Unknown Completed [facility] SARS-COV-2 COVID-19 VACCINE 12 YRS+, BIVALENT 0.5ML, IM, (MODERNA-BLUE TOP) Unknown Completed [facility] Pneumococcal 13 Conjugate, PCV13 (Prevnar 13) Unknown Completed [facility] Influenza Virus Vaccine Quad ID 18-64 YRS Unknown Completed [facility] Pneumococcal Polysaccharide, PPSV23 (PNEUMOVAX) Unknown Completed [facility] TDAP (ADACEL) VACCINE Unknown Completed [facility] Twinrix (hep a/hep b) Unknown Completed [facility] Influenza Virus Vaccine Quad .5 mL IM 6+ MO (FLUZONE/FLULAVAL/F LUARIX) Unknown Completed [facility] Influenza Virus Vaccine Recomb Quad IM, Preserv and ABX Free 18-64 YRS Unknown Completed [facility] SARS-COV-2 COVID-19 PFIZER VACCINE Unknown Completed [facility] Influenza Virus Vaccine Quad IM, Preserv and ABX Free 6 MO-64 YRS (FLUCELVAX) Unknown Completed [facility] SARS-COV-2 COVID-19 VACCINE 12 YRS+, BIVALENT 0.5ML, IM, (MODERNA-BLUE TOP) Unknown Completed [facility] Pneumococcal 13 Conjugate, PCV13 (Prevnar 13) Unknown Completed [facility] Influenza Virus Vaccine Quad ID 18-64 YRS Unknown Completed [facility] Pneumococcal Polysaccharide, PPSV23 (PNEUMOVAX) Unknown Completed [facility] TDAP (ADACEL) VACCINE Unknown Completed [facility] Twinrix (hep a/hep b) Unknown Completed [facility] Influenza Virus Vaccine Quad .5 mL IM 6+ MO (FLUZONE/FLULAVAL/F LUARIX) Unknown Completed [facility] Influenza Virus Vaccine Recomb Quad IM, Preserv and ABX Free 18-64 YRS Unknown Completed [facility] SARS-COV-2 COVID-19 PFIZER VACCINE Unknown Completed [facility] Influenza Virus Vaccine Quad IM, Preserv and ABX Free 6 MO-64 YRS (FLUCELVAX) Unknown Completed [facility] SARS-COV-2 COVID-19 VACCINE 12 YRS+, BIVALENT 0.5ML, IM, (MODERNA-BLUE TOP) Unknown Completed [facility] Pneumococcal 13 Conjugate, PCV13 (Prevnar 13) Unknown Completed [facility] Influenza Virus Vaccine Quad ID 18-64 YRS Unknown Completed [facility] Pneumococcal Polysaccharide, PPSV23 (PNEUMOVAX) Unknown Completed [facility] TDAP (ADACEL) VACCINE Unknown Completed [facility] Twinrix (hep a/hep b) Unknown Completed [facility] Influenza Virus Vaccine Quad .5 mL IM 6+ MO (FLUZONE/FLULAVAL/F LUARIX) Unknown Completed [facility] Influenza Virus Vaccine Recomb Quad IM, Preserv and ABX Free 18-64 YRS Unknown Completed [facility] SARS-COV-2 COVID-19 PFIZER VACCINE Unknown Completed [facility] Influenza Virus Vaccine Quad IM, Preserv and ABX Free 6 MO-64 YRS (FLUCELVAX) Unknown Completed [facility] SARS-COV-2 COVID-19 VACCINE 12 YRS+, BIVALENT 0.5ML, IM, (MODERNA-BLUE TOP) Unknown Completed [facility] Pneumococcal 13 Conjugate, PCV13 (Prevnar 13) Unknown Completed [facility] Influenza Virus Vaccine Quad ID 18-64 YRS Unknown Completed [facility] Pneumococcal Polysaccharide, PPSV23 (PNEUMOVAX) Unknown Completed [facility] TDAP (ADACEL) VACCINE Unknown Completed [facility] Twinrix (hep a/hep b) Unknown Completed [facility] Influenza Virus Vaccine Quad .5 mL IM 6+ MO (FLUZONE/FLULAVAL/F LUARIX) Unknown Completed [facility] Influenza Virus Vaccine Recomb Quad IM, Preserv and ABX Free 18-64 YRS Unknown Completed [facility] SARS-COV-2 COVID-19 PFIZER VACCINE Unknown Completed [facility] Influenza Virus Vaccine Quad IM, Preserv and ABX Free 6 MO-64 YRS (FLUCELVAX) Unknown Completed [facility] SARS-COV-2 COVID-19 VACCINE 12 YRS+, BIVALENT 0.5ML, IM, (MODERNA-BLUE TOP) Unknown Completed [facility] Pneumococcal 13 Conjugate, PCV13 (Prevnar 13) Unknown Completed [facility] Influenza Virus Vaccine Quad ID 18-64 YRS Unknown Completed [facility] Pneumococcal Polysaccharide, PPSV23 (PNEUMOVAX) Unknown Completed [facility] TDAP (ADACEL) VACCINE Unknown Completed [facility] Twinrix (hep a/hep b) Unknown Completed [facility] Influenza Virus Vaccine Quad .5 mL IM 6+ MO (FLUZONE/FLULAVAL/F LUARIX) Unknown Completed [facility] Influenza Virus Vaccine Recomb Quad IM, Preserv and ABX Free 18-64 YRS Unknown Completed [facility] SARS-COV-2 COVID-19 PFIZER VACCINE Unknown Completed [facility] Influenza Virus Vaccine Quad IM, Preserv and ABX Free 6 MO-64 YRS (FLUCELVAX) Unknown Completed [facility] SARS-COV-2 COVID-19 VACCINE 12 YRS+, BIVALENT 0.5ML, IM, (MODERNA-BLUE TOP) Unknown Completed [facility] Pneumococcal 13 Conjugate, PCV13 (Prevnar 13) Unknown Completed [facility] Influenza Virus Vaccine Quad ID 18-64 YRS Unknown Completed [facility] Pneumococcal Polysaccharide, PPSV23 (PNEUMOVAX) Unknown Completed [facility] TDAP (ADACEL) VACCINE Unknown Completed [facility] Twinrix (hep a/hep b) Unknown Completed [facility] Influenza Virus Vaccine Quad .5 mL IM 6+ MO (FLUZONE/FLULAVAL/F LUARIX) Unknown Completed [facility] Influenza Virus Vaccine Recomb Quad IM, Preserv and ABX Free 18-64 YRS Unknown Completed [facility] SARS-COV-2 COVID-19 PFIZER VACCINE Unknown Completed [facility] Influenza Virus Vaccine Quad IM, Preserv and ABX Free 6 MO-64 YRS (FLUCELVAX) Unknown Completed [facility] SARS-COV-2 COVID-19 VACCINE 12 YRS+, BIVALENT 0.5ML, IM, (MODERNA-BLUE TOP) Unknown Completed [facility] Pneumococcal 13 Conjugate, PCV13 (Prevnar 13) Unknown Completed [facility] Influenza Virus Vaccine Quad ID 18-64 YRS Unknown Completed [facility] Pneumococcal Polysaccharide, PPSV23 (PNEUMOVAX) Unknown Completed [facility] TDAP (ADACEL) VACCINE Unknown Completed [facility] Twinrix (hep a/hep b) Unknown Completed [facility] Influenza Virus Vaccine Quad .5 mL IM 6+ MO (FLUZONE/FLULAVAL/F LUARIX) Unknown Completed [facility] Influenza Virus Vaccine Recomb Quad IM, Preserv and ABX Free 18-64 YRS Unknown Completed [facility] SARS-COV-2 COVID-19 PFIZER VACCINE Unknown Completed [facility] Influenza Virus Vaccine Quad IM, Preserv and ABX Free 6 MO-64 YRS (FLUCELVAX) Unknown Completed [facility] SARS-COV-2 COVID-19 VACCINE 12 YRS+, BIVALENT 0.5ML, IM, (MODERNA-BLUE TOP) Unknown Completed [facility] Pneumococcal 13 Conjugate, PCV13 (Prevnar 13) Unknown Completed [facility] Influenza Virus Vaccine Quad ID 18-64 YRS Unknown Completed [facility] Pneumococcal Polysaccharide, PPSV23 (PNEUMOVAX) Unknown Completed [facility] TDAP (ADACEL) VACCINE Unknown Completed [facility] Twinrix (hep a/hep b) Unknown Completed [facility] Influenza Virus Vaccine Quad .5 mL IM 6+ MO (FLUZONE/FLULAVAL/F LUARIX) Unknown Completed [facility] Influenza Virus Vaccine Recomb Quad IM, Preserv and ABX Free 18-64 YRS Unknown Completed [facility] SARS-COV-2 COVID-19 PFIZER VACCINE Unknown Completed [facility] Influenza Virus Vaccine Quad IM, Preserv and ABX Free 6 MO-64 YRS (FLUCELVAX) Unknown Completed [facility] SARS-COV-2 COVID-19 VACCINE 12 YRS+, BIVALENT 0.5ML, IM, (MODERNA-BLUE TOP) Unknown Completed [facility] Pneumococcal 13 Conjugate, PCV13 (Prevnar 13) Unknown Completed [facility] Influenza Virus Vaccine Quad ID 18-64 YRS Unknown Completed [facility] Pneumococcal Polysaccharide, PPSV23 (PNEUMOVAX) Unknown Completed [facility] TDAP (ADACEL) VACCINE Unknown Completed [facility] Twinrix (hep a/hep b) Unknown Completed [facility] Influenza Virus Vaccine Quad .5 mL IM 6+ MO (FLUZONE/FLULAVAL/F LUARIX) Unknown Completed [facility] Influenza Virus Vaccine Recomb Quad IM, Preserv and ABX Free 18-64 YRS Unknown Completed [facility] SARS-COV-2 COVID-19 PFIZER VACCINE Unknown Completed [facility] Influenza Virus Vaccine Quad IM, Preserv and ABX Free 6 MO-64 YRS (FLUCELVAX) Unknown Completed [facility] SARS-COV-2 COVID-19 VACCINE 12 YRS+, BIVALENT 0.5ML, IM, (MODERNA-BLUE TOP) Unknown Completed [facility] Pneumococcal 13 Conjugate, PCV13 (Prevnar 13) Unknown Completed [facility] Influenza Virus Vaccine Quad ID 18-64 YRS Unknown Completed [facility] Pneumococcal Polysaccharide, PPSV23 (PNEUMOVAX) Unknown Completed [facility] TDAP (ADACEL) VACCINE Unknown Completed [facility] Twinrix (hep a/hep b) Unknown Completed [facility] Influenza Virus Vaccine Quad .5 mL IM 6+ MO (FLUZONE/FLULAVAL/F LUARIX) Unknown Completed [facility] Influenza Virus Vaccine Recomb Quad IM, Preserv and ABX Free 18-64 YRS Unknown Completed [facility] SARS-COV-2 COVID-19 PFIZER VACCINE Unknown Completed [facility] Influenza Virus Vaccine Quad IM, Preserv and ABX Free 6 MO-64 YRS (FLUCELVAX) Unknown Completed [facility] SARS-COV-2 COVID-19 VACCINE 12 YRS+, BIVALENT 0.5ML, IM, (MODERNA-BLUE TOP) Unknown Completed [facility] Pneumococcal 13 Conjugate, PCV13 (Prevnar 13) Unknown Completed [facility] Influenza Virus Vaccine Quad ID 18-64 YRS Unknown Completed [facility] Pneumococcal Polysaccharide, PPSV23 (PNEUMOVAX) Unknown Completed [facility] TDAP (ADACEL) VACCINE Unknown Completed [facility] Twinrix (hep a/hep b) Unknown Completed [facility] Influenza Virus Vaccine Quad .5 mL IM 6+ MO (FLUZONE/FLULAVAL/F LUARIX) Unknown Completed [facility] Influenza Virus Vaccine Recomb Quad IM, Preserv and ABX Free 18-64 YRS Unknown Completed [facility] SARS-COV-2 COVID-19 PFIZER VACCINE Unknown Completed [facility] Influenza Virus Vaccine Quad IM, Preserv and ABX Free 6 MO-64 YRS (FLUCELVAX) Unknown Completed [facility] SARS-COV-2 COVID-19 VACCINE 12 YRS+, BIVALENT 0.5ML, IM, (MODERNA-BLUE TOP) Unknown Completed [facility] Pneumococcal 13 Conjugate, PCV13 (Prevnar 13) Unknown Completed [facility] Influenza Virus Vaccine Quad ID 18-64 YRS Unknown Completed [facility] Pneumococcal Polysaccharide, PPSV23 (PNEUMOVAX) Unknown Completed [facility] TDAP (ADACEL) VACCINE Unknown Completed [facility] Twinrix (hep a/hep b) Unknown Completed [facility] Influenza Virus Vaccine Quad .5 mL IM 6+ MO (FLUZONE/FLULAVAL/F LUARIX) Unknown Completed [facility] Influenza Virus Vaccine Recomb Quad IM, Preserv and ABX Free 18-64 YRS Unknown Completed [facility] SARS-COV-2 COVID-19 PFIZER VACCINE Unknown Completed [facility] Influenza Virus Vaccine Quad IM, Preserv and ABX Free 6 MO-64 YRS (FLUCELVAX) Unknown Completed [facility] SARS-COV-2 COVID-19 VACCINE 12 YRS+, BIVALENT 0.5ML, IM, (MODERNA-BLUE TOP) Unknown Completed [facility] Pneumococcal 13 Conjugate, PCV13 (Prevnar 13) Unknown Completed [facility] Influenza Virus Vaccine Quad ID 18-64 YRS Unknown Completed [facility] Pneumococcal Polysaccharide, PPSV23 (PNEUMOVAX) Unknown Completed [facility] TDAP (ADACEL) VACCINE Unknown Completed [facility] Twinrix (hep a/hep b) Unknown Completed [facility] Influenza Virus Vaccine Quad .5 mL IM 6+ MO (FLUZONE/FLULAVAL/F LUARIX) Unknown Completed [facility] Influenza Virus Vaccine Recomb Quad IM, Preserv and ABX Free 18-64 YRS Unknown Completed [facility] SARS-COV-2 COVID-19 PFIZER VACCINE Unknown Completed [facility] Influenza Virus Vaccine Quad IM, Preserv and ABX Free 6 MO-64 YRS (FLUCELVAX) Unknown Completed [facility] SARS-COV-2 COVID-19 VACCINE 12 YRS+, BIVALENT 0.5ML, IM, (MODERNA-BLUE TOP) Unknown Completed [facility] Pneumococcal 13 Conjugate, PCV13 (Prevnar 13) Unknown Completed [facility] Influenza Virus Vaccine Quad ID 18-64 YRS Unknown Completed [facility] Pneumococcal Polysaccharide, PPSV23 (PNEUMOVAX) Unknown Completed [facility] TDAP (ADACEL) VACCINE Unknown Completed [facility] Twinrix (hep a/hep b) Unknown Completed [facility] Influenza Virus Vaccine Quad .5 mL IM 6+ MO (FLUZONE/FLULAVAL/F LUARIX) Unknown Completed [facility] Influenza Virus Vaccine Recomb Quad IM, Preserv and ABX Free 18-64 YRS Unknown Completed [facility] SARS-COV-2 COVID-19 PFIZER VACCINE Unknown Completed [facility] Vital Signs Vital Name Observation Time Observation Value Comments S catalino Systolic blood pressure 2023-05-03 15:03:00 139 mm[Hg] [facility] Diastolic blood pressure 2023-05-03 15:03:00 78 mm[Hg] [facility] Heart rate 2023-05-03 15:03:00 78 /min [facility] Body temperature 2023-05-03 15:03:00 36.44 Neli [facility] Respiratory rate 2023-05-03 15:03:00 18 /min [facility] Body height 2023-05-03 15:03:00 170.2 cm [facility] Body weight 2023-05-03 15:03:00 73.71 kg [facility] BMI 2023-05-03 15:03:00 25.45 kg/m2 [facility] Oxygen saturation in Arterial blood by Pulse oximetry 2023-05-03 15:03:00 100 /min [facility] Systolic blood pressure 2023-02-16 21:47:00 105 mm[Hg] [facility] Diastolic blood pressure 2023-02-16 21:47:00 64 mm[Hg] [facility] Heart rate 2023-02-16 21:47:00 78 /min [facility] Body temperature 2023-02-16 21:47:00 36.56 Neli [facility] Respiratory rate 2023-02-16 21:47:00 18 /min [facility] Body height 2023-02-16 21:47:00 170.2 cm [facility] Body weight 2023-02-16 21:47:00 76.204 kg [facility] BMI 2023-02-16 21:47:00 26.31 kg/m2 [facility] Oxygen saturation in Arterial blood by Pulse oximetry 2023-02-16 21:47:00 96 /min room air [facility] Systolic blood pressure 2022-06-20 15:30:00 132 mm[Hg] [facility] Diastolic blood pressure 2022-06-20 15:30:00 74 mm[Hg] [facility] Heart rate 2022-06-20 15:25:00 87 /min [facility] Body temperature 2022-06-20 15:25:00 36.17 Neli [facility] Respiratory rate 2022-06-20 15:25:00 18 /min [facility] Body height 2022-06-20 15:25:[address] [facility] Body weight 2022-06-20 15:25:00 64.411 kg [facility] BMI 2022-06-20 15:25:00 22.24 kg/m2 [facility] Systolic blood pressure 2022-05-02 21:37:00 134 mm[Hg] [facility] Diastolic blood pressure 2022-05-02 21:37:00 85 mm[Hg] [facility] Heart rate 2022-05-02 21:36:00 86 /min [facility] Body temperature 2022-05-02 21:36:00 36.44 Neli [facility] Body height 2022-05-02 21:36:[address] [facility] Body weight 2022-05-02 21:36:00 63.504 kg [facility] BMI 2022-05-02 21:36:00 21.93 kg/m2 [facility] Systolic blood pressure 2021-10-18 21:08:00 140 mm[Hg] [facility] Diastolic blood pressure 2021-10-18 21:08:00 87 mm[Hg] [facility] Heart rate 2021-10-18 21:08:00 84 /min [facility] Body temperature 2021-10-18 21:05:00 36.78 Neli [facility] Respiratory rate 2021-10-18 21:05:00 16 /min [facility] Body height 2021-10-18 21:05:[address] [facility] Body weight 2021-10-18 21:05:00 64.093 kg [facility] BMI 2021-10-18 21:05:00 22.81 kg/m2 [facility] Procedures Procedure Date / Time Performed Performing Clinician Source AUTHORIZATION TO RELEASE PHI TO [facility] 2023-07-20 06:01:00 Doctor Unassigned, [place] [facility] MR LUMBAR SPINE WO CONTRAST 2023-06-22 17:11:18 Prudence Flores [facility] CONSENT/REFUSAL FOR DIAGNOSIS AND TREATMENT 2023-06-22 16:25:22 Doctor Unassigned, [place] [facility] ASSIGNMENT OF BENEFITS 2022-06-20 15:18:10 Docto r Unassigned, [place] [facility] FLU VACC (), 6 MO-64 YRS, .5ML, IM, QUAD (FLUCELVAX) 2022-05-02 22:01:31 Sobeida Pollard [facility] SARS-COV-2 COVID-19 VACCINE 18 YRS+, BIVALENT 0.5ML, IM (MODERNA BOOSTER) 2022-05-02 22:01:31 Sobeida Pollard [facility] AUTHORIZATION FOR RELEASE OF PHI 2022-01-15 05:01:00 Doctor Unassigned, [place] [facility] FLU VACC (), 2-64 YRS, .5ML, IM, QUAD (FLUCELVAX) 2021-10-18 23:00:52 Chris Linder [facility] AUTHORIZATION FOR RELEASE OF PHI 2021-09-21 06:01:00 Doctor Unassigned, [place] [facility] Encounters Start Date/Time End Date/Time Encounter Type Admission Type Attending Clinicians Care Facility Care Department Encounter ID Source 2023-01-11 13:08:33 Outpatient [id number] Epic 2022 10:48:23 Outpatient SHARON ALEXANDER [facility] [id number] [facility] 2024-06-10 15:00:00 2024-06-10 15:00:00 Outpatient CHRIS ALFONSO LUCAS [facility] [id number] [facility] 2024-06-03 10:15:00 2024-06-03 10:15:00 Outpatient Mia RAMOS IZABEL [facility] [id number] [facility] 2024-05-26 10:15:00 2024-05-26 10:15:00 Outpatient Mia RAMOS IZABEL [facility] [id number] [facility] 2024-05-21 09:45:00 2024-05-21 09:45:00 Outpatient Mia KEISHAIZABEL BLACKWELL [facility] [id number] [facility] 2024-05-21 09:20:00 2024-05-21 09:20:00 Outpatient Mia LIM LAURAUte LIM DAV [facility] [id number] [facility] 2024-05-15 00:00:00 2024-05-15 14:29:54 Telephone Chris Linder [facility] 1.2.840.114 350.1.13.10 4.2.7.2.686 [id number] [facility] 2024-04-15 16:30:00 2024-04-15 16:30:00 Outpatient CHRIS ALFONSO LUCAS [facility] [id number] [facility] 2024-04-15 14:00:00 2024-04-15 14:00:00 Outpatient CHRIS ALFONSO LUCAS [facility] [id number] [facility] 2024-03-25 00:00:00 2024-04-07 13:30:39 Refill Chris Linder [facility] 1.2.840.114 350.1.13.10 4.2.7.2.686 [id number] [facility] 2024-04-01 15:00:00 2024-04-01 15:00:00 Outpatient CHRIS ALFONSO LUCAS [facility] [id number] [facility] 2024-03-27 00:00:00 2024-03-27 16:26:17 Telephone Chris Linder [facility] 1.2.840.114 350.1.13.10 4.2.7.2.686 [id number] [facility] 2024-03-09 00:00:00 2024-03-11 14:03:56 Refill Chris Linder [facility] 1.2.840.114 350.1.13.10 4.2.7.2.686 [id number] [facility] 2024-02-27 00:00:00 2024-02-29 17:21:04 Refjimbo Linder [facility] 1.2.840.114 350.1.13.10 4.2.7.2.686 [id number] [facility] 2024-01-20 00:00:00 2024-01-22 15:39:19 Refjimbo Linder [facility] 1.2.840.114 350.1.13.10 4.2.7.2.686 [id number] [facility] 2024-01-15 10:40:00 2024-01-15 10:40:00 Outpatient PRUDENCE TATE [facility] [id number] [facility] 2023-12-24 00:00:00 2023-12-26 16:42:49 Refjimbo Linder [facility] 1.2.840.114 350.1.13.10 4.2.7.2.686 [id number] [facility] 2023-12-12 00:00:00 2023-12-12 00:00:00 Shazia Linder [facility] 1.114 350.1.13.10 4.2.7.2.686 [id number] [facility] 2023-11-30 16:00:00 2023-11-30 16:00:00 Outpatient R PRUDENCE FLORES [facility] [id number] [facility] 2023-11-27 15:25:17 2023-11-27 15:25:17 Outpatient SFA SFA 0416 Octavio Lan 2023-11-19 00:00:00 2023-11-19 00:00:00 Refill Prudence Flores [facility] 1.84114 350.1.13.10 4.2.7.2.686 [id number] [facility] 2023-11-01 10:20:00 2023-11-01 10:20:00 Outpatient R PRUDENCE FLORES [facility] [id number] [facility] 2023-10-15 00:00:00 2023-10-15 00:00:00 Refill Prudence [facility] 1.84114 350.1.13.10 4.2.7.2.686 [id number] [facility] 2023-09-20 00:00:00 2023-09-20 00:00:00 Refill Chris Linder [facility] 1.114 350.1.13.10 4.2.7.2.686 [id number] [id number] [facility] 2023-09-20 00:00:00 2023-09-20 00:00:00 Refill Prudence Flores [facility] 1.84.114 350.1.13.10 4.2.7.2.686 [id number] [facility] 2023-08-31 00:00:00 2023-08-31 00:00:00 Telephone Prudence Flores Salomón [facility] 1.2840.114 350.1.13.10 4.2.7.2.686 [id number] [facility] 2023-08-17 00:00:00 2023-08-17 00:00:00 Refill Prudence Flores Salomón [facility] 1.840.114 350.1.13.10 4.2.7.2.686 [id number] [facility] 2023-07-20 00:00:00 2023-07-20 00:00:00 Orders Only Doctor Unassigned, [place] [facility] 1.840.114 350.1.13.10 4.2.7.2.686 [id number] [facility] 2023-07-09 00:00:00 2023-07-09 00:00:00 Telephone Prudence Flores Salomón [facility] 1.2840.114 350.1.13.10 4.2.7.2.686 [id number] [facility] 2023-06-22 10:25:30 2023-06-22 23:59:00 Outpatient R PRUDENCE FLORES [facility] [id number] [facility] 2023-06-22 10:25:30 2023-06-22 23:59:00 Hospital Encounter Prudence Flores [facility] 1.2840.114 350.1.13.10 4.2.7.2.686 [id number] [facility] 2023-06-22 00:00:00 2023-06-22 00:00:00 Orders Only Doctor Unassigned, [place] [facility] 1.2840.114 350.1.13.10 4.2.7.2.686 [id number] [facility] 2023-06-20 08:15:00 2023-06-20 08:15:00 Outpatient DANYELLE JOHNSON EMILY [facility] [id number] [facility] 2023-06-19 16:00:00 2023-06-19 16:00:00 Outpatient CHRIS ALFONSO LUCAS [facility] [id number] [facility] 2023-06-15 00:00:00 2023-06-15 00:00:00 Telephone Chris Linder [facility] 1.114 350.1.13.10 4.2.7.2.686 [id number] [facility] 2023-06-05 00:00:00 2023-06-05 00:00:00 Patient Secure Msg Doctor Unassigned, [place] [facility] 1.2.114 350.1.13.10 4.2.7.2.686 [id number] [facility] 2023-05-22 00:00:00 2023-05-22 00:00:00 Patient Secure Msg Doctor Unassigned, [place] [facility] 1.284.114 350.1.13.10 4.2.7.2.686 [id number] [facility] 2023-05-21 00:00:00 2023-05-21 00:00:00 Telephone Prudence Flores [facility] 1.84.114 350.1.13.10 4.2.7.2.686 [id number] [facility] 2023-05-15 00:00:00 2023-05-15 00:00:00 Telephone Prudence Flores Salomón [facility] 1..840.114 350.1.13.10 4.2.7.2.686 [id number] [facility] 2023-05-04 12:04:03 2023-05-04 23:59:00 Outpatient R PRUDENCE FLORES [facility] [id number] [facility] 2023-05-04 12:04:03 2023-05-04 23:59:00 Hospital Encounter Prudence Flores [facility] 1..840.114 350.1.13.10 4.2.7.2.686 [id number] [facility] 2023-05-03 10:00:00 2023-05-03 10:35:50 Outpatient R PRUDENCE FLORES [facility] [id number] [facility] 2023-05-03 10:00:00 2023-05-03 10:35:50 Office Visit Prudence Flores Salomón [facility] 1..840.114 350.1.13.10 4.2.7.2.686 [id number] [facility] 2023-05-02 00:00:00 2023-05-02 00:00:00 Telephone Chris Linder [facility] 1..840.114 350.1.13.10 4.2.7.2.686 [id number] [facility] 2023-04-02 11:40:20 2023-04-02 11:40:20 Outpatient SFA SFA 0821 Octavio Wes Riky 2023-04-02 00:00:00 2023-04-02 00:00:00 Outpatient R MCKENZIE ARCHER [facility] [id number] [facility] 2023-03-30 00:00:00 2023-03-30 00:00:00 Outpatient [id number] [facility] 2023-03-27 00:00:00 2023-03-27 00:00:00 Patient Secure Msg Doctor Unassigned, [place] [facility] 1.0.114 350.1.13.10 4.2.7.2.686 [id number] [facility] 2023-03-20 00:00:00 2023-03-20 00:00:00 Telephone Chris Linder [facility] 1..114 350.1.13.10 4.2.7.2.686 [id number] [facility] 2023-03-19 14:15:00 2023-03-19 14:30:00 Peanut Butter Maker Visit Pob, Adc Lab Main Chris Linder [facility] 1.84.114 350.1.13.10 4.2.7.2.686 [id number] [facility] 2023-03-19 14:15:00 2023-03-19 14:15:00 Outpatient CHRIS ALFONSO LUCAS [facility] [id number] [facility] 2023-03-01 00:00:00 2023-03-01 00:00:00 Outpatient MCKENZIE BARAHONA [facility] [id number] [facility] 2023-02-16 16:00:00 2023-02-16 16:30:00 Office Visit Chris Linder [facility] 1..114 350.1.13.10 4.2.7.2.686 [id number] [facility] 2023-02-16 16:00:00 2023-02-16 16:00:00 Outpatient CHRIS ALFONSO LUCAS [facility] [id number] [facility] 2023-02-16 00:00:00 2023-02-16 00:00:00 Refjimbo Linder [facility] 1.2.840.114 350.1.13.10 4.2.7.2.686 [id number] [facility] 2023-02-15 00:00:00 2023-02-15 00:00:00 Outpatient [id number] Epic 2023-02-07 00:00:00 2023-02-07 00:00:00 Shazia Linder [facility] 1.2.840.114 350.1.13.10 4.2.7.2.686 [id number] [facility] 2023-02-02 00:00:00 2023-02-02 00:00:00 [facility] 1.2840.114 350.1.13.10 4.2.7.2.686 [id number] [facility] 2023-01-17 00:00:00 2023-01-17 00:00:00 [facility] 1.2840.114 350.1.13.10 4.2.7.2.686 [id number] [facility] 2023-01-11 05:41:04 2023-01-11 23:59:00 [facility] Mckenzie Archer [facility] 1.2840.114 350.1.13.10 4.2.7.2.686 [id number] [facility] 2022-10-31 13:30:00 2022-10-31 13:30:00 Outpatient CHRIS ALFONSO LUCAS [facility] [id number] [facility] 2022-08-09 00:00:00 2022-08-09 00:00:00 Patient Secure Msg Doctor Unassigned, [place] [facility] 1..114 350.1.13.10 4.2.7.2.686 [id number] [facility] 2022-07-19 00:00:00 2022-07-19 00:00:00 Telephone Danyelle Christine [facility] 1..114 350.1.13.10 4.2.7.2.686 [id number] [facility] 2022-07-17 00:00:00 2022-07-17 00:00:00 Telephone Danyelle Christine [facility] 1..114 350.1.13.10 4.2.7.2.686 [id number] [facility] 2022-06-26 14:00:00 2022-06-26 14:00:00 Outpatient R MCKINLEY MONTERO [facility] [id number] [facility] 2022-06-26 14:00:00 2022-06-26 14:00:00 Outpatient R [facility] [id number] [facility] 2022-06-22 00:00:00 2022-06-22 00:00:00 Patient Secure Msg Doctor Unassigned, [place] [facility] 1..114 350.1.13.10 4.2.7.2.686 [id number] [facility] 2022-06-21 00:00:00 2022-06-21 00:00:00 Patient Secure Msg Doctor Unassigned, [place] [facility] 1..114 350.1.13.10 4.2.7.2.686 [id number] [facility] 2022-06-20 11:45:00 2022-06-20 12:00:00 Peanut Butter Maker Visit [facility] Danyelle Christine [facility] 1.20.114 350.1.13.10 4.2.7.2.686 [id number] [facility] 2022-06-20 11:45:00 2022-06-20 11:45:00 Outpatient DANYELLE JOHNSON EMILY [facility] [id number] [facility] 2022-06-20 09:30:00 2022-06-20 10:10:31 Office Visit Danyelle Christine [facility] 1.20.114 350.1.13.10 4.2.7.2.686 [id number] [facility] 2022-06-20 00:00:00 2022-06-20 00:00:00 Orders Only Doctor Unassigned, [place] [facility] 1.2840.114 350.1.13.10 4.2.7.2.686 [id number] [facility] 2022-06-12 00:00:00 2022-06-12 00:00:00 Patient Secure Msg Doctor Unassigned, [place] [facility] 1.2.840.114 350.1.13.10 4.2.7.2.686 [id number] [facility] 2022-05-26 00:00:00 2022-05-26 00:00:00 Telephone Sharon Steiner [facility] 1.840.114 350.1.13.10 4.2.7.2.686 [id number] [facility] 2022-05-15 00:00:00 2022-05-15 00:00:00 Outpatient CHRIS ALFONSO LUCAS [facility] [id number] [facility] 2022-05-09 14:30:00 2022-05-09 14:30:00 Outpatient ESTEVAN DURBIN [facility] [id number] [facility] 2022-05-09 00:00:00 2022-05-09 00:00:00 Letter (Out) Thierno Wade [facility] 1.2.840.114 350.1.13.10 4.2.7.2.686 [id number] [facility] 2022-05-05 00:00:00 2022-05-05 00:00:00 Letter (Out) Thierno Wade [facility] 1.840.114 350.1.13.10 4.2.7.2.686 [id number] [facility] 2022-05-03 00:00:00 2022-05-03 00:00:00 Telephone Chris Linder [facility] 1.2840.114 350.1.13.10 4.2.7.2.686 [id number] [facility] 2022-05-02 16:00:00 2022-05-02 16:30:00 Office Visit Chris Linder [facility] 1.2.840.114 350.1.13.10 4.2.7.2.686 [id number] [facility] 2022-05-02 16:00:00 2022-05-02 16:00:00 Outpatient R [facility] [id number] [facility] 2022-04-24 09:00:00 2022-04-24 09:00:00 Outpatient ESTEVAN DURBIN [facility] [id number] [facility] 2022-04-21 00:00:00 2022-04-21 00:00:00 Letter (Out) Theresa Hays [facility] 1.2.840.114 350.1.13.10 4.2.7.2.686 [id number] [facility] 2022-04-20 11:00:00 2022-04-20 11:00:00 Outpatient R DARIA HAYDEN [facility] [id number] [facility] 2022-04-18 14:30:00 2022-04-18 14:30:00 Outpatient R CHRIS LINDER CHRIS [facility] [id number] [facility] 2022-04-07 10:10:00 2022-04-07 10:10:00 Outpatient ELENA TINOCO KENDALL [facility] [id number] [facility] 2022-04-04 13:00:00 2022-04-04 13:00:00 Outpatient R CHRIS LINDER [facility] [id number] [facility] 2022-03-29 08:20:00 2022-03-29 08:20:00 Outpatient R RENNY CARDENAS [facility] [id number] [facility] 2022-03-06 10:30:00 2022-03-06 10:30:00 Outpatient R ESTEVAN SUN [facility] [id number] [facility] 2022-01-25 00:00:00 2022-01-25 00:00:00 Chris Carranza [facility] .840.114 350.1.13.10 4.2.7.2.686 [id number] [facility] 2022-01-23 00:00:00 2022-01-23 00:00:00 Chris Carranza [facility] 1..840.114 350.1.13.10 4.2.7.2.686 [id number] [facility] 2022-01-15 00:00:00 2022-01-15 00:00:00 Orders Only Doctor Unassigned, [place] [facility] 1.2.840.114 350.1.13.10 4.2.7.2.686 [id number] [facility] 2021-12-07 00:00:00 2021-12-07 00:00:00 Telephone ViverosMayra rebolledo [facility] 1.2.840.114 350.1.13.10 4.2.7.2.686 [id number] [facility] 2021-10-20 00:00:00 2021-10-20 00:00:00 Telephone Kailash [facility] 1.2.840.114 350.1.13.10 4.2.7.2.686 [id number] [facility] 2021-10-18 16:45:00 2021-10-18 16:45:00 Peanut Butter Maker Visit [facility] Kailash [facility] 1.2.840.114 350.1.13.10 4.2.7.2.686 [id number] [facility] 2021-10-18 15:30:00 2021-10-18 16:03:04 Office Visit Kailash, [facility] 1.2.840.114 350.1.13.10 4.2.7.2.686 [id number] [facility] 2021-10-18 15:30:00 2021-10-18 16:03:04 Outpatient CHRIS ALFONSO LUCAS [facility] [id number] [facility] 2021-10-18 16:00:00 2021-10-18 16:00:00 Outpatient CHRIS ALFONSO LUCAS [facility] [id number] [facility] 2021-10-18 11:40:2021-10-18 11:40:00 Outpatient KEIKO EVERETT [facility] [id number] [facility] 2021-10-06 00:00:00 2021-10-06 00:00:00 Chris Carranza [facility] 1..840.114 350.1.13.10 4.2.7.2.686 [id number] [facility] 2021-09-22 10:30:00 2021-09-22 10:30:00 Outpatient Mia [facility] [id number] [facility] 2021-09-22 10:30:00 2021-09-22 10:30:00 Outpatient Mia [facility] [id number] [facility] 2021-09-21 00:00:00 2021-09-21 00:00:00 Orders Only Doctor Unassigned, [place] [facility] 1..840.114 350.1.13.10 4.2.7.2.686 [id number] [facility] [facility]22 00:00:00 2021-08-22 00:00:00 Outpatient CHRIS ALFONSO [facility] [id number] [facility] 2021-08-22 00:00:00 2021-08-22 00:00:00 Outpatient CHRIS ALFONSO [facility] [id number] [facility] 2021-07-12 15:30:00 2021-07-12 15:30:00 Outpatient R [facility] [id number] [facility] 2021-07-12 15:30:00 2021-07-12 15:30:00 Outpatient R [facility] [id number] [facility] 2021-07-01 00:00:00 2021-07-01 00:00:00 Chris Blandon [facility] 1..840.114 350.1.13.10 4.2.7.2.686 [id number] [facility] 2021-06-14 16:09:17 2021-06-14 16:24:17 Peanut Butter Maker Visit [facility] Kailash [facility] 1.2.840.114 350.1.13.10 4.2.7.2.686 [id number] [facility] 2021-06-14 16:04:16 2021-06-14 16:14:16 Imm/Inj Visit Vaccine, Gal [facility] 1.2.840.114 350.1.13.10 4.2.7.2.686 [id number] [facility] 2021-06-14 15:14:56 2021-06-14 15:44:56 Office Visit Kailash [facility] 1.2.840.114 350.1.13.10 4.2.7.2.686 [id number] [facility] 2021-06-14 15:30:00 2021-06-14 15:30:00 Outpatient CHRIS ALFONSO [facility] [id number] [facility] 2021-06-14 15:30:00 2021-06-14 15:30:00 Outpatient CHRIS ALFONSO [facility] [id number] [facility] 2021-05-28 00:00:00 2021-05-28 00:00:00 Refill Kailash [facility] 1.2.840.114 350.1.13.10 4.2.7.2.686 [id number] [facility] 2021-05-11 15:15:00 2021-05-11 15:15:00 Outpatient ESTEVAN DURBIN [facility] [id number] [facility] 2021-05-09 14:00:00 2021-05-09 14:00:00 Outpatient ESTEVAN DURBIN [facility] [id number] [facility] 2021-04-28 00:00:00 2021-04-28 00:00:00 Telephone Chris Linder [facility] 1.2.840.114 350.1.13.10 4.2.7.2.686 [id number] [facility] 2021-04-25 08:45:00 2021-04-25 08:45:00 Outpatient JERO HUANG [facility] [id number] [facility] 2021-04-19 00:00:00 2021-04-19 00:00:00 Telephone Chris Linder 1.2.840.1 [id number] 3.104.2.7 .[id number] .[id number] [facility] 2021-04-11 08:45:00 2021-04-11 08:45:00 Outpatient JERO HUANG [facility] [id number] [facility] 2021-03-16 08:45:00 2021-03-16 08:45:00 Outpatient MORRIS MARIE [facility] [id number] [facility] 2021-03-16 00:00:00 2021-03-16 00:00:00 Refill Chris Linder 1.2.840.1 [id number] 3.104.2.7 .3.449935 .8 [id number] [facility] 2020-12-27 14:30:00 2020-12-27 14:30:00 Outpatient MORRIS MARIE [facility] [id number] [facility] 2020-12-15 15:15:00 2020-12-15 15:15:00 Outpatient OCTAVIO WEBB [facility] [id number] [facility] 2020-12-07 15:07:29 2020-12-07 15:40:28 Peanut Butter Maker Visit [facility] 1.2.840.114 350.1.13.10 4.2.7.2.686 [id number] [facility] 2020-12-07 14:03:43 2020-12-07 15:00:48 Office Visit Kailash, [facility] 1.2.840.114 350.1.13.10 4.2.7.2.686 [id number] [facility] 2020-12-07 14:03:43 2020-12-07 15:00:48 Office Visit Kailash, [facility] 1.2.840.114 350.1.13.10 4.2.7.2.686 [id number] 2020-12-07 14:30:00 2020-12-07 14:30:00 Outpatient CHRIS ALFONSO [facility] [id number] [facility] 2020-11-23 13:00:00 2020-11-23 13:00:00 Outpatient R CHRIS LINDER [facility] [id number] [facility] 2020-11-12 00:00:00 2020-11-12 00:00:00 Refill Kailash [facility] 1.2.840.114 350.1.13.10 4.2.7.2.686 [id number] [facility] 2020-09-27 13:45:00 2020-09-27 13:45:00 Outpatient MORRIS MARIE [facility] [id number] [facility] 2020-09-14 00:00:00 2020-09-14 00:00:00 Refill Kailash [facility] 1.2.840.114 350.1.13.10 4.2.7.2.686 [id number] [facility] 2020-09-13 00:00:00 2020-09-13 00:00:00 Refill Kailash, [facility] 1.2.840.114 350.1.13.10 4.2.7.2.686 [id number] [facility] 2020-09-07 13:30:00 2020-09-07 13:30:00 Outpatient R CHRIS LINDER LUCAS [facility] [id number] [facility] 2020-08-26 00:00:00 2020-08-26 00:00:00 [facility] 1.2.840.114 350.1.13.10 4.2.7.2.686 [id number] [facility] 2020-08-26 00:00:00 2020-08-26 00:00:00 Telephone [facility] 1.2.840.114 350.1.13.10 4.2.7.2.686 [id number] [facility] 2020-08-19 00:00:00 2020-08-19 00:00:00 [facility] 1.2.840.114 350.1.13.10 4.2.7.2.686 [id number] [facility] 2020-08-09 08:00:00 2020-08-09 08:00:00 Outpatient R SELFJERO [facility] [id number] [facility] 2020-08-09 08:00:00 2020-08-09 08:00:00 Outpatient R SELFJERO [facility] [id number] [facility] 2020-07-13 15:15:00 2020-07-13 14:49:18 Outpatient R CHRIS LINDER LUCAS [facility] [id number] [facility] 2020-07-13 14:39:02 2020-07-13 14:49:18 Peanut Butter Maker Visit [facility] Chris Linder [facility] 1.2.840.114 350.1.13.10 4.2.7.2.686 [id number] [facility] 2020-07-13 13:51:20 2020-07-13 14:21:20 [facility] 1.2.840.114 350.1.13.10 4.2.7.2.686 [id number] [facility] 2020-07-13 14:00:00 2020-07-13 14:00:00 Outpatient R CHRIS LINDER [facility] [id number] [facility] 2020-07-12 08:00:00 2020-07-12 08:00:00 Outpatient R GONZÁLEZ JERO [facility] [id number] [facility] 2020-07-12 00:00:00 2020-07-12 00:00:00 Orders Only Doctor Unassigned, [place] 1.2.840.1 17303.1.1 3.104.2.7 .[id number] .8 [id number] [facility] 2020-07-07 00:00:00 2020-07-07 00:00:00 Travel 1.2.840.1 71327.1.1 3.104.2.7 .[id number] .8 1.2.840.114 350.1.13.10 4.2.7.3.698 [id number] [facility] 2020-06-29 15:00:00 2020-06-29 15:00:00 Outpatient R CHRIS LINDER [facility] [id number] [facility] 2020-06-24 00:00:00 2020-06-24 00:00:00 Chris Carranza 1.2.840.1 32979.1.1 3.104.2.7 .3.450200 .8 [id number] [facility] 2020-06-01 13:00:00 2020-06-01 13:00:00 Outpatient [facility] [id number] [facility] 2020-05-14 09:15:00 2020-05-14 09:15:00 Outpatient Mia [facility] [id number] [facility] 2020-05-06 13:45:00 2020-05-06 13:45:00 Outpatient Mia [facility] [id number] [facility] 2020-03-20 00:00:00 2020-03-20 00:00:00 Chris Carranza [facility] 1..840.114 350.1.13.10 4.2.7.2.686 [id number] [facility] 2020-03-08 09:30:00 2020-03-08 09:30:00 Outpatient JERO HUANG [facility] [id number] [facility] 2020-02-24 15:00:00 2020-02-24 15:00:00 Outpatient [facility] [id number] [facility] 2020-02-24 07:45:48 2020-02-24 08:15:48 Telemedici ne Visit Chris Linder [facility] 1..840.114 350.1.13.10 4.2.7.2.686 [id number] [facility] 2020-02-09 09:30:00 2020-02-09 09:30:00 Outpatient Mia CLA[facility]IO [facility] [id number] [facility] 2020-01-26 11:00:00 2020-01-26 11:00:00 Outpatient R SUZANNE BADILLO [facility] [id number] [facility] 2020-01-23 00:00:00 2020-01-23 00:00:00 Telephone Chris Linder [facility] 1..840.114 350.1.13.10 4.2.7.2.686 [id number] [facility] 2019-12-23 15:00:00 2019-12-23 15:00:00 Outpatient R CHRIS LINDER LUCAS [facility] [id number] [facility] 2019-12-15 00:00:00 2019-12-15 00:00:00 Telephone Chris Linder [facility] 1..840.114 350.1.13.10 4.2.7.2.686 [id number] [facility] 2019-11-24 13:00:00 2019-11-24 13:00:00 Outpatient R SUZANNE BADILLO [facility] [id number] [facility] 2019-11-14 13:30:00 2019-11-14 13:30:00 Outpatient iMa SALLIE TINAJERO [facility] [id number] [facility] 2019-10-30 00:00:00 2019-10-30 00:00:00 Telephone Chris Linder 1..840.1 32216.1.1 3.104.2.7 .3.123905 .8 [id number] [facility] 2019-10-14 15:00:00 2019-10-14 15:00:00 Outpatient R CHRIS LINDER LUCAS [facility] [id number] [facility] 2019-08-25 00:00:00 2019-08-25 00:00:00 Case Management Faby Cabrera 1..840.1 [id number] 3.104.2.7 .[id number] .8 [id number] [facility] 2019-06-30 16:00:00 2019-06-30 16:51:32 Outpatient SUZANNE TOLBERT [facility] [id number] [facility] 2019-06-30 00:00:00 2019-06-30 00:00:00 Orders Only Doctor Unassigned, [place] 1.2840.1 31833.1.1 3.104.2.7 .3.199616 .8 [id number] [facility] 2019-05-06 00:00:00 2019-05-06 00:00:00 Telephone Mckinley Solis 1.2840.1 [id number] 3.104.2.7 .3.832961 .8 [id number] [facility] 2019-05-01 08:05:43 2019-05-01 09:14:20 Office Visit Yanelis May Res-Colpo/Kacy eep, [facility] 1.2840.1 [id number] 3.104.2.7 .3.645467 .8 [id number] [facility] 2019-05-01 00:00:00 2019-05-01 00:00:00 Orders Only Doctor Unassigned, [place] 1.2840.1 [id number] 3.104.2.7 .3.093600 .8 [id number] [facility] 2019-04-29 00:00:00 2019-04-29 00:00:00 Telephone Best Morelos 1.2840.1 21509.1.1 3.104.2.7 .3.417301 .8 [id number] [facility] 2019-04-15 10:45:00 2019-04-15 10:45:00 Hospital Encounter Chris Linder 1.2840.1 69197.1.1 3.104.2.7 .3.292746 .8 [id number] [facility] 2019-04-15 00:00:00 2019-04-15 00:00:00 Outpatient R CHRIS LINDER LUCAS [facility] [id number] [facility] 2019-04-15 00:00:00 2019-04-15 00:00:00 Telephone [place] 1.2.840.1 38813.1.1 3.104.2.7 .3.676006 .8 [id number] [facility] 2019-04-15 00:00:00 2019-04-15 00:00:00 Refill Chris Linder 1.2.840.1 34461.1.1 3.104.2.7 .3.847862 .8 [id number] [facility] 2019-04-12 00:00:00 2019-04-12 00:00:00 Refill Chris Linder 1.2.840.1 13467.1.1 3.104.2.7 .3.899276 .8 [id number] [facility] 2019-03-28 00:00:00 2019-03-28 00:00:00 Telephone Best oMrelos [facility] 1.2.840.114 350.1.13.10 4.2.7.2.686 [id number] [facility] 2019-01-13 00:00:00 2019-01-13 23:59:00 Outpatient Mia THERESA HAYS [facility] [id number] [facility] Results Test Description Test Time Test Comments Results Result Co mments Source CULTURE, URINE 2023-04-05 11:33:03 SPECIMEN NUMBER: [id number] CULTURE, URINE SPECIMEN NUMBER: [id number] SPECIMEN COMMENT: URINE SOURCE: URINE REPORT STATUS: FINAL ISOLATE NUMBER 1: ORGANISM: 04/04/2023 >100,000 CFU/ML GRAM NEGATIVE BACILLI IDENTIFICATION: 04/05/2023 ESCHERICHIA COLI E. COLI AMOX ICILLIN/CA SENSITIVE <=8/4AMPICILLIN RESISTANT >16CEFAZOLIN SENSITIVE <=2CEFTRIAXONE SENSITIVE <=1CIPROFLOXACIN SENSITIVE <=1LEVOFLOXACIN SENSITIVE <=2NITROFURANTOIN SENSITIVE <=32PIP/TAZOBAC SENSITIVE <=16TETRACYCLINE RESISTANT >8TOBRAMYCIN SENSITIVE <=4TRIMETH/SULFA RESISTANT >2/38 NOTE: NUMBERS DISPLAYED REPRESENT MINIMUM INHIBITORY CONCENTRATION (FELIPE) WHICH IS EXPRESSED IN MCG/ML. UNLESS OTHERWISE INDICATED, ALL TESTING PERFORMED AT [facility] [address] [place] [address] TIRE TECHNICIAN: ROBBY YUNG M.D. [facility] NUMBER [id number] [place] [place] [id number] Notes Date/Time Note Provider Source 2024-05-15 14:21:06 Received 05/15/24 refill request for: Medication: Requested Prescriptions Pending Prescriptions Disp Refills ueqvbvb-tgk-muuvk-tenof ALAFEN (GENVOYA) [phone] mg per tablet 90 tablet 1 Sig: Take 1 tablet by mouth every morning. Please call [phone] to schedule a follow up appointment. Thank you Last filled: 12/12/23 Follow up scheduled for : 06/10/24 Last office visit: 02/16/23 Refilled approval sent to: Pharmacy: [facility]/pharmacy #[id number] [address] Refilled per ID Guidelines T [facility] 2024-05-15 13:07:50 Ermelinda Talbot is a 48 year old female Pt calling asking for a refill hjhaovn-vtq-idsqa-tenof ALAFEN (GENVOYA) [phone] mg per tablet She is scheduled to see Dr. Linder on Jun 10 Pt has a cough, asking for cough medication [facility]pharmacy [id number] [facility] Rena Cotter [facility] 2024-03-27 16:26:05 Sent patient a [employer]oo[employer] message. Joie Butcher RN [facility] 2024-03-27 14:18:48 Thank you, Dr. Linder. I tried reaching patient, no answer. Left message for patient to call me back. [facility] 2024-03-27 13:52:01 I have not seen the patient in over a year. I will occasionally refill a medication for someone when they are in transition and are on an established medication, so perhaps I filled this in the past. That said, this is a medication I usually don't start. I may have provided a refill if she couldn't get with psychiatry for some reason. She should seek opinion of her mental health provider for further refills though. [facility] 2024-03-27 13:47:44 Sorry, I am unable to refill. I have not seen Ms. Talbot in over a year. She used to see pain management locally and I agreed to help until she got established with another pain physician. For scheduled medications, face to face visits are needed on occasion to ensure continued efficacy, safety, and to fulfill recommended CAREY requirements. Patient should seek care locally for this medication or with PCP if the medication is still even indicated. [facility] 2024-03-27 13:26:35 Please see patients pharmacy requesting a quantity change from 30 days to 90 days, and advise, thank you. Joie Hennessy LVN [facility] 2024-03-27 08:47:31 Dr. Linder, Please advise on refill request. Thank you REFILL Provider: Dr. Linder Patient's phone number: [phone] (home) Pharmacy: [facility] Medication: Tramadol Strength: 50 mg Directions: take 1 tablet po q 8 hours prn pain Quantity: #90 last written 01/22/24 Last filled: 01/28/24 for #90 Last office visit: 02/16/23 Next office visit: 04/01/24 [facility] 2024-03-27 08:33:02 Ermelinda Talbot is a 48 year old female Pt is requesting refill for TRAMADOL 50 mg tablet,pt scheduled 04-01-[address] [facility] 2024-03-11 08:53:46 Pt needs dc for refills Julian Reece MA [facility] 2024-02-29 14:39:59 Pt needs dc for refils Julian Reece MA [facility] 2024-01-21 09:33:37 REFILL (Requires review before approval) Provider: Chris Linder MD Patient's phone number: [phone] (home) [facility] [place] [address] Medication: traMADoL (ULTRAM) Strength: 50 mg tablet Directions: TAKE 1 TABLET BY MOUTH EVERY 8 HOURS NEEDED FOR PAIN INDICATIONS: CHRONIC PAIN Quantity: 90 Tablets with ZERO Refills Last filled: 12/26/2023 Last office visit: 02/16/2023 Next scheduled visit: No future visits are scheduled. Joie Hennessy PROJECT MANAGER INTERIOR DESIGN [facility] 2023-12-26 15:29:13 REFILL (Requires review before approval) Provider: Chris Linder MD Patient's phone number: [phone] (home) [id number] Medication: traMADoL (ULTRAM) Strength: 50 mg tablet Directions: TAKE 1 TABLET BY MOUTH EVERY 8 HOURS NEEDED FOR PAIN INDICATIONS: CHRONIC PAIN Quantity: 90 Tablets with 2 Refills Last filled: Unknown Last office visit: 02/16/2023 Next scheduled visit: No future ID visits are scheduled. Joie Hennessy PROJECT MANAGER INTERIOR DESIGN [facility] 2023-12-12 10:36:19 REFILL Provider: Dr. Linder Patient's phone number: [phone] (home) Pharmacy: [address] Medication: Genvoya Strength: [phone] mg Directions: take 1 tab po daily Quantity: #30 with 5 refills last written 02/16/23 Last filled: unknown Last office visit: 02/16/23 Next office visit: not scheduled. Reminder sent to patient to call office to schedule a follow up appointment. Refilled per ID protocol guidelines to pharmacy above. Joie Butcher RN [facility] 2023-11-19 11:51:44 Recent Visits Date Type Provider Dept 05/03/23 Office Visit Prudence Flores MD [facility] 06/20/22 Office Visit Danyelle Christine, [facility] Showing recent visits within past 540 days with a meds authorizing provider and meeting all other requirements Future Appointments Date Type Provider Dept 11/30/23 Appointment Prudence Flores MD [facility] Showing future appointments within next 150 days with a meds authorizing provider and meeting all other requirements Last refill was BENZONATATE 100 mg capsule 60 capsule 0 10/16/2023 -- No Sig: TAKE 1 CAPSULE BY MOUTH EVERY 6 HOURS NEEDED FOR COUGH. Sent to pharmacy as: benzonatate 100 mg capsule (TESSALON PERLES) Class: eRX Katrina Rosa MA [facility] 2023-10-15 13:07:42 Images from the original note were not included. Requested Renewals Name from pharmacy: BENZONATATE 100 MG CAPSULE Will file in chart as: BENZONATATE 100 mg capsule Sig: TAKE 1 CAPSULE BY MOUTH EVERY 6 HOURS NEEDED FOR COUGH. Disp: 60 capsule Refills: 0 (Pharmacy requested: Not specified) Start: 10/15/2023 Class: eRX For: Moderate persistent asthma with exacerbation Last ordered: 3 weeks ago (09/21/2023) by Prudence Flores MD Last refill: 09/21/2023 Rx #: [id number] Provider Review Required [id number]/15/2023 11:25 AM Protocol Details This refill cannot be delegated Valid encounter within last 12 months To be filled at: [facility]/pharmacy #[id number] - [address] Recent Visits Date Type Provider Dept 05/03/23 Office Visit Prudence Flores MD [facility] 06/20/22 Office Visit Danyelle Christine, [facility] Showing recent visits within past 540 days with a meds authorizing provider and meeting all other requirements Future Appointments Date Type Provider Dept 11/01/23 Appointment Prudence Flores MD [facility] Showing future appointments within next 150 days with a meds authorizing provider and meeting all other requirements WARE PROGRAM MANAGER Carmen Joy LVN [facility] 2023-09-20 14:02:56 Images from the original note were not included. Notes: Last Refilled: Name from pharmacy: BENZONATATE 100 MG CAPSULE Will file in chart as: BENZONATATE 100 mg capsule Sig: TAKE 1 CAPSULE BY MOUTH EVERY 6 HOURS NEEDED FOR COUGH. Disp: 60 capsule Refills: 0 (Pharmacy requested: Not specified) Start: 09/20/2023 Class: eRX For: Moderate persistent asthma with exacerbation Last ordered: 4 months ago (05/03/2023) by Prudence Flores MD Last refill: 05/03/2023 Rx #: [id number] Provider Review Required Oskvrs3009/20/2023 12:04 PM Protocol Details This refill cannot be delegated Valid encounter within last 12 months To be filled at: [facility]/pharmacy #[id number] AT [facility] Recent Visits Date Type Provider Dept 05/03/23 Office Visit Prudence Flores MD [facility] 06/20/22 Office Visit Danyelle Christine, [facility] Showing recent visits within past 540 days with a meds authorizing provider and meeting all other requirements Future Appointments Date Type Provider Dept 11/01/23 Appointment Prudence Flores MD [facility] Showing future appointments within next 150 days with a meds authorizing provider and meeting all other requirements WARE PROGRAM MANAGER Trista Pierre MA [facility] 2023-09-20 13:42:22 [facility] website reviewed. No discrepancies in prescribing noted. ERx sent. [facility] 2023-09-20 10:03:27 REFILL (Requires approval) Provider: Chris Linder MD Patient's phone number: [phone] (home) Pharmacy: [facility]/pharmacy #[id number] Medication: traMADoL (ULTRAM) Strength: 50 mg tablet Directions: TAKE 1 TABLET BY MOUTH EVERY 8 HOURS NEEDED FOR PAIN Indications: chronic pain Quantity: 90 Tablets with 2 Refills Last filled: Unknown Last office visit: 02/16/2023 Next scheduled visit: No future ID visits are scheduled. Hennessy LVN [facility] 2023-08-31 15:56:45 Patient requesting for MRI report be sent to [facility] Pain management dept and information was faxed to [phone] on 08/31/2023. [facility] 2023-08-31 11:22:52 Ermelinda Talbot is a 48 year old female Pt is calling in reference to [facility] pain management wanting to more information about her Mri results states [facility] needing more information regarding the results Please advise Thank you [facility] 2023-03-26 09:18:07 Formatting of this n ote might be different from the original. Paperwork in Dr. Linder's clinic folder. Joie Butcher RN [facility] 2023-03-20 15:00:31 Formatting of this n ote might be different from the original. Ermelinda Talbot is a 47 year old female patient calling needs status letter and blood work [facility] @ fax # [phone] Has 9:00AM appointment 03/21/[address] [facility] 2023-03-19 14:15:00 Formatting of this n ote is different from the original. Images from the original note were not included. Venipuncture collection performed by clean technique on the left wrist. Total of 1 attempts were made. Slight pressure and a bandage/dressing were applied to the site(s). The patient experienced no complications. The following specimens were processed according to instructions and sent to [facility] laboratories per lab order on 03/19/2023: LT BLUE SST 2 RED LAV 2 PPT 1 DK GREEN (LiHep) 2 DK GREEN (SodH) CORNELL DK BLUE (K2) DK BLUE (S) ACD Blood Culture NIPT/NTD [facility] 2023-03-19 14:15:00 Formatting of this n ote might be different from the original. Pt was not fasting for blood draw will come back for Lipid Panel. [facility]
--- NOTE | 2024-06-10 14:12 | EDPHYS ---
Physician Documentation [facility] Name: Tianna Costello Age: 49 yrs Sex: Female : 1975 Arrival Date: 06/10/2024 Time: 12:38 Bed 20 Private MD: ED Physician Homa López HPI: 06/10 13:06 This 49 yrs old Black Female presents to ER via Ambulatory with complaints of Abdominal kb Pain, Nausea/Vomiting. 13:06 Pt is a 49 year old female who presents for RUQ pain that started one week ago. States kb she has had gallbladder issues in the past and this feels the same. Pt reports vomiting started today. Denies fever, diarrhea. Also reports pain to right leg, mostly in the calf that has been going on for a while. States she wanted to get it checked out while she was here. . Historical: - Allergies: 12:59 PENICILLINS; iw - PMHx: 12:59 Anxiety; Asthma; HIV positive; iw - PSHx: 12:59 section; iw - Immunization history:: Adult Immunizations up to date. - Infectious Disease History:: Denies. - Social history:: Smoking status: Patient reports the use of cigarette tobacco products, denies chronic smoking, but will smoke occasionally. ROS: 13:06 Constitutional: As per HPI kb Exam: 13:06 Constitutional: This is a well developed, well nourished patient who is awake, alert, kb and in no acute distress. Head/Face: Normocephalic, atraumatic. ENT: Moist Mucous membranes Cardiovascular: Regular rate Respiratory: Respirations even and unlabored. No increased work of breathing. Talking in full sentences Abdomen/GI: Soft, non-tender. No distention Skin: Warm, dry with normal turgor. Normal color. MS/ Extremity: Pulses equal, no cyanosis. Neurovascular intact. Full, normal range of motion. Neuro: Awake and alert, GCS 15, oriented to person, place, time, and situation. Vital Signs: 12:59 BP 142 / 84; Pulse 97; Resp 18; Temp 97.8; Pulse Ox 100% on R/A; Pain 6/10; iw 12:59 Pain Scale: Adult iw MDM: 12:56 Medical Screening Exam initiated kb 14:12 Differential diagnosis: cholecystitis, Cholelithiasis, non-specific abd pain, kb pancreatitis. Data reviewed: vital signs, nurses notes. 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 Does not want to wait for diagnostic testing. . 06/10 13:09 Order name: Abdomen Limited US; Complete Time: 16:36 kb 06/10 13:09 Order name: US Extremity Venous Unilateral Ltd; Complete Time: 16:36 kb Administered Medications: 14:34 Not Given (Patient Refused): ns 0.9% 1000 ml IV at 100 ml/hr once ar6 14:34 Not Given (Patient Refused): ondansetron 4 mg IVP once; over 2 minutes ar6 14:34 Not Given (Patient Refused): [id number] mg IVP once ar6 Disposition Summary: 06/10/24 14:11 Discharge Ordered Notes: Location: Home kb Condition: Stable kb Diagnosis - Upper abdominal pain, unspecified kb Followup: kb - With: Emergency Department - When: As needed - Reason: Worsening of condition Followup: kb - With: Private Physician - When: 2 - 3 days - Reason: Recheck today's complaints, Continuance of care, Re-evaluation by your physician Discharge Instructions: - Discharge Summary Sheet kb - Abdominal Pain, Adult kb Forms: - Medication Reconciliation Form kb - Antibiotic Education kb - Prescription Opioid Use kb - Patient Portal Instructions kb - Leadership Thank You Letter kb Signatures: Dispatcher [employer] Lenoer Navarrete, OFFAL WORKER-C OFFAL WORKER-Saadb Li Charles RN RN iw Kori Starkey RN ar6 Corrections: (The following items were deleted from the chart) 13:10 13:10 Extremity Venous Uni Ltd+[email or web address] ordered. [facility] EDMO 13:19 13:06 Pt is a 49 year old female who presents for RUQ pain that started one week ago. kb States she has had gallbladder issues in the past and this feels the same. Pt reports vomiting started today. Denies fever, diarrhea.. kb 14:34 13:09 IV Saline Lock ordered. kb ar6 14:34 13:09 Labs collected and sent ordered. kb ar6
--- NOTE | 2024-06-10 14:12 | ER ---
Nurse's Notes [facility] Name: Tianna Costello Age: 49 yrs Sex: Female : 1975 Arrival Date: 06/10/2024 Time: 12:38 Bed 20 Private MD: Diagnosis: Upper abdominal pain, unspecified Presentation: 06/10 12:58 Chief complaint: Patient states: RUQ pain X 1 week, vomiting bile. Coronavirus screen: iw At this time, the client does not indicate any symptoms associated with coronavirus-19. Ebola Screen: No symptoms or risks identified at this time. Initial Sepsis Screen: Does the patient meet any 2 criteria? No. Patient's initial sepsis screen is negative. Does the patient have a suspected source of infection? No. Patient's initial sepsis screen is negative. Risk Assessment: Do you want to hurt yourself or someone else? Patient reports no desire to harm self or others. Onset of symptoms was June 03, 2024. 12:58 Method Of Arrival: Ambulatory iw 12:58 Acuity: DAVID 3 iw Historical: - Allergies: 12:59 PENICILLINS; iw - PMHx: 12:59 Anxiety; Asthma; HIV positive; iw - PSHx: 12:59 section; iw - Immunization history:: Adult Immunizations up to date. - Infectious Disease History:: Denies. - Social history:: Smoking status: Patient reports the use of cigarette tobacco products, denies chronic smoking, but will smoke occasionally. Assessment: 14:34 Reassessment: pt. requesting to leave and wishes not to complete labs or medications; ar6 Lenore Mora NP notified. Vital Signs: 12:59 BP 142 / 84; Pulse 97; Resp 18; Temp 97.8; Pulse Ox 100% on R/A; Pain 6/10; iw 12:59 Pain Scale: Adult iw ED Course: 12:40 Patient arrived in ED. mr 12:56 Lenore Mora FNP-C is PHCP. kb 12:56 Homa López MD is Attending Physician. kb 12:59 Triage completed. iw 12:59 Arm band placed on. iw 13:36 Abdomen Limited US In Process Unspecified. EDMS 13:58 US Extremity Venous Unilateral Ltd In Process Unspecified. EDMS 14:09 Kori Starkey, RN is Primary Nurse. ar6 Administered Medications: 14:34 Not Given (Patient Refused): ns 0.9% 1000 ml IV at 100 ml/hr once ar6 14:34 Not Given (Patient Refused): ondansetron 4 mg IVP once; over 2 minutes ar6 14:34 Not Given (Patient Refused): [id number] mg IVP once ar6 Outcome: 14:11 Discharge ordered by MD. rodrigez 14:36 Patient left the ED. ar6 Signatures: Dispatcher [employer] EDMS Lenore Mora, NERY-C SALESPERSON NECKTIES-Danica Rodarte, Reg Reg mr Li Charles, MARIANA PEÑA iw Kori Starkey RN RN ar6 Corrections: (The following items were deleted from the chart) 13:01 12:58 Acuity: DAVID 2 iw lizzy
--- NOTE | 2024-06-10 14:41 | RAD REPORT ---
EXAMINATION: US Abdomen Exam Limited CLINICAL HISTORY: [facility] MAIN Y ABD PAIN Bed Name: 4 COMPARISON: 07/23/2021 TECHNIQUE: Limited upper abdominal grayscale and color flow sonographic images. FINDINGS: Gallbladder: Small gallstones without significant shadowing near the neck. No wall thickening, report edly positive sonographic Strange sign, or pericholecystic fluid. Bile ducts: No intrahepatic or extrahepatic biliary dilatation. Common bile duct measures 2 mm. Liver: Visualized portions of the liver demonstrate normal echogenicity with no suspicious findings. Fluid: No ascites. IMPRESSION: Small gallstones near the gallbladder neck. No other abnormalities noted on ultrasound.
[2024-06-10 14:42] VITALS: BP 142/84; TEMP 97.8; O2SAT 100
--- NOTE | 2024-06-10 15:30 | RAD REPORT ---
EXAMINATION: US RIGHT LOWER EXTREMITY VENOUS DOPPLER CLINICAL INDICATION: HS MAIN right calf PAIN Bed Name: IW4 Y TECHNIQUE: Complete bilateral duplex sonography of the RIGHT lower extremity veins was performed. The examination included compression for vein patency, color Doppler imaging and flow augmentation in response to distal compression of the distal external iliac, common femoral, femoral, popliteal, tibi al, and great and small saphenous veins. COMPARISON: 10/23/2018 FINDINGS: Duplex sonography testing of the veins of the RIGHT lower extremity was performed. Color flow imaging shows all veins to be compressible with [id number] color filling. Pulsatile and phasic flow is present within all lower extremity deep and superficial veins examined. IMPRESSION: No evidence of deep venous thrombosis.
== END 2024-06-10 14:36 | disposition home or self-care (01) ==
LOC: ER 12:38
DX: R10.11 Right upper quadrant pain (principal); R11.10 Vomiting, unspecified; Z21 Asymptomatic human immunodeficiency virus [HIV] infection status; F17.210 Nicotine dependence, cigarettes, uncomplicated
CPT/HCPCS: 76705; 93971

== ENCOUNTER 2024-06-10 16:40 | Emergency (ER) | payer OTHER ==
--- OUTSIDE RECORDS SUMMARY | 2024-06-10 16:45 | XMS REPORT | Continuity of Care Document ---
Author Name Unknown Address [address] [place] [address] [facility] thconnect Address [address] [place] [address] Care Team Providers Care Lock Operator Name Role Phone PCP, PATIENT DOES NOT HAVE A Primary Care Physic michell Unavailable SHARON STEINER Attending Clinician UnavailCHRIS Chen Attending Clinician Unavailable CHRIS LINDER Attending Clinician Unavailable IZABEL RAMOS Attending Clinician UnaDAV [place] Attending Clinician Unavailable DAV LIM Attending Clinician Unavailable Chris Linder MD Attending Clinician [phone] Chris Linder MD Attending Clinician [phone] PRUDENCE FLORES Attending Clinician Antionette Prudence Rodriguez MD Attending Clinician Doctor Unassigned, [place] Attending Clinician U DANYELLE Denise Attending Clinician UnavailDANYELLE Velarde Attending Clinician UnavailMCKENZIE Carmen Attending Clinician Unavailable Pob, [facility] Main Attending Clinician UnavailMckenzie Carmen Attending Clinician [phone] MCKINLEY MONTERO Attending Clinician Unavail able [facility] Attending Clinician Unavailable TIFFANIE PICHARDO Attending Clinician Unavailable Sharon Steiner MD Attending Clinician [phone] ESTEVAN SUN Attending Clinician Unavailable Thierno Wade DO Attending Clinician [phone] Lis Theresa RICHARDSON Attending Clinician + DARIA HAYDEN Attending Clinician Unavailable ELENA LORA Attending Clinician UnavailELENA Calvo Attending Clinician Unavailabl RENNY Strauss Attending Clinician Unavailable Mayra Viveros MD Attending Clinician [phone] JEROME ONEIL Attending Clinician Unavailable KEIKO RODRÍGUEZ Attending Clinician Unavail able Vaccine, Gal [facility] Attending Clinician Unavailable JERO CLAUDIO Attending Clinician Unavailable MORRIS LOPEZ Attending Clinician Unavailable OCTAVIO HUANG Attending Clinician Unavail able SUZANNE BADILLO Attending Clinician UnavailSALLIE Crow Attending Clinician Unavailable Rick PEÑA, Faby Lorenzana Attending Clinician Unav Mckinley Doshi CNM Attending Clinician [phone] Lalo [facility] Attending Clinician [phone] Res-Colpo/Leep, [facility] Attending Clinician Un available Tamy PEÑA, Best Woodruff Attending Clinician Unavailute Hall RN, Dang Woodruff Attending Clinician THERESA Tierney Attending Clinician Unavail able SHARON STEINER Admitting Clinician UnavailPRUDENCE Canales Admitting Clinician Antionette vailable Payers Payer Name Policy Type Policy Number Effective Date Expirati on Date Source [facility] DUAL COMPLETE-SNP 5 [id number] 2022 00:00:00 [facility] 6 [id number] 2019 00:00:00 [facility] DUAL COMP HMO D SNP [id number] 2022 00:00:00 [place] [id number] 2022 00:00:00 [facility] [place] [id number] 00:00:00 [facility] [place] STAR PLUS [id number] 2020 00:00:00 Problems Condition Name Condition Details Condition Category Status Onset Date Resolution Date Last Treatment Date Treating Clinician Comments Source 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 +hpv [facility] Well woman exam Well woman exam Disease Active 12-17 00:00: 00 [facility] Breast pain Breast pain Disease Active 12-17 00:00: 00 [facility] Obesity (BMI 30-39.9) Obesity (BMI 30-39.9) Disease Active 12-17 00:00: 00 [facility] AIDS AIDS Disease Active 01-19 00:00: 00 [facility] Pneumonia Pneumonia Disease Active 12-27 00:00: 00 [facility] Unspecifie d protein-ca kelsy malnutriti on Unspecifie d protein-ca kelsy malnutriti on Disease Resolve d 12-27 00:00: 00 2018-06-12 00:00:00 2018-06-12 08:51:32 [facility] Allergies, Adverse Reactions, Alerts Allergy Name Allergy Type Status Severity Reaction(s) Onset Date Inactive Date Treating Clinician Comments Source PENICILL INS Drug Class Active High Anaphylaxis 12-27 00:00: 00 [facility] Penicill ins Propensi ty to adverse reaction s to drug Active Unknown - See comments 12-27 00:00: 00 anaphylax is [facility] Penicill ins Propensi ty to adverse reaction s to drug Active Anaphylaxis 12-27 00:00: 00 anaphylax is [facility] Penicill ins Propensi ty to adverse reaction s to drug Active Unknown - See comments 12-27 00:00: 00 anaphylax is [facility] Social History Social Habit Start Date Stop Date Quantity Comments Source History SDOH Alcohol Frequency [facility] History SDOH [facility] Binge [facility] Gender identity [facility] of Social function 2023-05-03 00:00:00 2023-05-03 00:00:00 [facility] Alcoholic beverage intake 2023-05-03 00:00:00 2023-05-03 00:00:00 Current non-drinker of alcohol (finding) [facility] Cigarettes smoked current (pack per day) - Reported 2023-05-03 00:00:00 2023-05-03 00:00:00 [facility] Cigarette pack-years 2023-05-03 00:00:00 2023-05-03 00:00:00 [facility] Tobacco use and exposure 2023-05-03 00:00:00 2023-05-03 00:00:00 Smokeless tobacco non-user [facility] Alcohol intake 2023-05-03 00:00:00 2023-05-03 00:00:00 Current non-drinker of alcohol (finding) [facility] Tobacco Comment 2023-05-03 00:00:00 2023-05-03 00:00:00 Is currently smoking 2 cigarettes daily-05/03/23 [facility] Exposure to SARS-CoV-2 (event) 2022-06-10 00:00:00 2022-06-20 09:26:00 Not sure [facility] Alcohol Comment 2016-12-27 00:00:00 2016-12-27 00:00:00 Occasional wine [facility] History of tobacco use 2016-09-29 00:00:00 Cigarette Smoker [facility] Sex assigned at 1975 00:00:00 1975 00:00:00 [facility] Smoking Status Start Date Stop Date Source Smokes tobacco daily 2023-05-03 00:00:00 [facility] Occasional tobacco smoker 2022-05-02 00:00:00 [facility] Medications Ordered Medication Name Filled Medication Name Start Date Stop Date Current Medication? Ordering Clinician Indication Dosage Frequency Signature (SIG) Comments Components Source elviteg-cob -emtri-teno f ALAFEN (GENVOYA) 150-150-200 -10 mg per tablet 2023-08 003 00:00: 00 Yes [id number] 1{tbl} Take 1 tablet by mouth every morning. Please call to schedule a follow up brandyn awde Thank you [facility] ALBUTEROL 90 mcg/actuati on inhaler 03-11 00:00: 00 Yes [id number] 2{puff} TAKE 2 PUFFS BY MOUTH EVERY 6 HOURS NEEDED FOR WHEEZE OR FOR SHORTNESS OF BREATH [facility] ARIPIPRAZOL E 10 mg tablet 03-11 00:00: 00 Yes [id number] 10mg TAKE 1 TABLET BY MOUTH EVERYDAY AT BEDTIME [facility] TRAMADOL 50 mg tablet 01-21 00:00: 00 Yes [id number] TAKE 1 TABLET BY MOUTH EVERY 8 HOURS NEEDED FOR PAIN INDICATION S: CHRONIC PAIN [facility] traMADoL 50 mg tablet 12-25 00:00: 00 01-21 00:00 :00 No [id number] TAKE 1 TABLET BY MOUTH EVERY 8 HOURS NEEDED FOR PAIN INDICATION S: CHRONIC PAIN [facility] elviteg-cob -emtri-teno f ALAFEN (GENVOYA) 150-150-200 -10 mg per tablet 12-11 00:00: 00 05-15 00:00 :00 No [id number] 1{tbl} Take 1 tablet by mouth every morning. Please call to schedule a follow up brandyn wade Thank you [facility] BENZONATATE 100 mg capsule 4-09 00:00: 00 Yes [id number] TAKE 1 CAPSULE BY MOUTH EVERY 6 HOURS NEEDED FOR COUGH. [facility] BENZONATATE 100 mg capsule 3-05 00:00: 00 Yes [id number] TAKE 1 CAPSULE BY MOUTH EVERY 6 HOURS NEEDED FOR COUGH. [facility] BENZONATATE 100 mg capsule 2- 00:00: 00 Yes [id number] TAKE 1 CAPSULE BY MOUTH EVERY 6 HOURS NEEDED FOR COUGH. [facility] TRAMADOL 50 mg tablet 2- 00:00: 00 12-25 00:00 :00 No [id number] TAKE 1 TABLET BY MOUTH EVERY 8 HOURS NEEDED FOR PAIN INDICATION S: CHRONIC PAIN [facility] QUEtiapine 50 mg tablet 2022-08 00:00: 00 Yes TAKE 1 TABLET AT BEDTIME TAKE FOR 7 NIGHTS IF NO SIDE EFFECTS INCREASE TO THE 100 MG TABS. [facility] traMADoL 50 mg tablet 2022-08 00:00: 00 09-20 00:00 :00 No [id number] TAKE 1 TABLET BY MOUTH EVERY 8 HOURS NEEDED FOR PAIN Indication s: chronic pain [facility] azithromyci n 250 mg tablet 05-03 00:00: 00 Yes [id number] Z-Blayne = 500mg day 1, then 250mg days 2 to 5. [facility] Guaifenesin 1,200 mg tablet 05-03 00:00: 00 Yes [id number] 1200mg Take 1 tablet by mouth in the morning and 1 tablet in the evening. [facility] benzonatate (TESSALON PERLES) 100 mg capsule 05-03 00:00: 00 09-21 00:00 :00 No [id number] 100mg Take 1 capsule by mouth every 6 (six) hours as needed for Cough. [facility] prednisoLON E 5 mg tablet 05-03 00:00: 00 05-09 04:59 :00 No [id number] 20mg Take 4 tablets by mouth in the morning for 5 days. [facility] busPIRone 10 mg tablet 04-27 00:00: 00 Yes 10mg Take 1 tablet by mouth in the morning and 1 tablet in the evening. [facility] traZODone 50 mg tablet 02-16 00:00: 00 Yes [id number] 50mg Take 1 tablet by mouth at bedtime. [facility] gabapentin 300 mg capsule 02-16 00:00: 00 Yes [id number] 300mg Take 1 capsule by mouth in the morning and 1 capsule at noon and 1 capsule in the evening. [facility] SERTraline 100 mg tablet 02-16 00:00: 00 Yes [id number] 100mg Take 1 tablet by mouth in the morning. [facility] ARIPiprazol e 10 mg tablet 02-16 00:00: 03-11 00:00 :00 No [id number] 10mg Take 1 tablet by mouth at bedtime. [facility] albuterol 90 mcg/actuati on inhaler 02-16 00:00: 00 03-11 00:00 :00 No [id number] 2{puff} Inhale 2 Puffs every 6 (six) hours as needed for Wheezing or Shortness of Breath. [facility] elviteg-cob -emtri-teno f ALAFEN (GENVOYA) 150-150-200 -10 mg per tablet 02-16 00:00: 00 12-11 00:00 :00 No [id number] 1{tbl} Take 1 tablet by mouth every morning. [facility] doxycycline hyclate 100 mg capsule 02-16 00:00: 00 02-24 04:59 :00 No [id number] 100mg Take 1 capsule by mouth every 12 (twelve) hours for 7 days. [facility] traMADoL 50 mg tablet 02-14 00:00: 00 06-21 00:00 :00 No [id number] TAKE 1 TABLET BY MOUTH EVERY 8 HOURS NEEDED FOR PAIN Indication s: chronic pain [facility] traZODone 50 mg tablet 01-17 00:00: 00 02-16 00:00 :00 No [id number] 50mg Take 1 tablet by mouth at bedtime. [facility] elviteg-cob -emtri-teno f ALAFEN (GENVOYA) 150-150-200 -10 mg per tablet 01-17 00:00: 00 02-16 00:00 :00 No [id number] 1{tbl} Take 1 tablet by mouth every morning. [facility] gabapentin 300 mg capsule 01-17 00:00: 00 02-16 00:00 :00 No [id number] 300mg Take 1 capsule by mouth in the morning and 1 capsule at noon and 1 capsule in the evening. [facility] peg-electro lyte soln 236-22.74-6 .74 -5.86 gram solution 2021-08 0-04 00:00: 00 05-17 04:59 :00 No Take as Directed [facility] polyethylen e glycol-elec trolytes 420 gram solution 2021-08 0-04 00:00: 00 06-20 00:00 :00 No TAKE DIRECTED [facility] erythromyci n 5 mg/gram (0.5 %) ophthalmic ointment 05-06 00:00: 00 Yes [facility] traMADoL 50 mg tablet 05-02 00:00: 00 02-14 00:00 :00 No [id number] TAKE 1 TABLET BY MOUTH EVERY 8 HOURS NEEDED FOR PAIN Indication s: chronic pain [facility] elviteg-cob -emtri-teno f ALAFEN (GENVOYA) 150-150-200 -10 mg per tablet 05-02 00:00: 00 01-17 00:00 :00 No [id number] 1{tbl} Take 1 tablet by mouth every morning. [facility] gabapentin 300 mg capsule 05-02 00:00: 00 01-17 00:00 :00 No [id number] 300mg Take 1 capsule by mouth in the morning and 1 capsule at noon and 1 capsule in the evening. [facility] ARIPiprazol e 10 mg tablet 04-19 00:00: 00 02-16 00:00 :00 No 10mg Take 10 mg by mouth at bedtime. [facility] SERTraline 100 mg tablet 04-19 00:00: 00 02-16 00:00 :00 No 100mg Take 100 mg by mouth in the morning. [facility] traZODone 50 mg tablet 04-19 00:00: 00 01-17 00:00 :00 No 50mg Take 50 mg by mouth at bedtime. [facility] traMADoL 50 mg tablet 16 00:00: 00 05-02 00:00 :00 No [id number] TAKE 1 TABLET BY MOUTH EVERY 8 HOURS NEEDED FOR PAIN Indication s: chronic pain [facility] elviteg-cob -emtri-teno f ALAFEN (GENVOYA) 150-150-200 -10 mg per tablet 10-18 00:00: 00 05-02 00:00 :00 No [id number] 1{tbl} Take 1 tablet by mouth every morning. [facility] gabapentin 300 mg capsule 08 00:00: 00 05-02 00:00 :00 No [id number] 300mg Take 1 capsule by mouth 3 (three) times daily. [facility] TRAMADOL 50 mg tablet 224 00:00: 00 01-25 00:00 :00 No [id number] TAKE 1 TABLET BY MOUTH EVERY 8 HOURS NEEDED FOR PAIN [facility] elvite-cob -emtri-teno f ALAFEN (GENVOYA) 150-150-200 -10 mg per tablet 2020-08 00:00: 00 10-18 00:00 :00 No [id number] 1{tbl} Take 1 tablet by mouth every morning. [facility] gabapentin 300 mg capsule 2020-08 00:00: 00 10-18 00:00 :00 No [id number] 300mg Take 1 capsule by mouth 3 (three) times daily. [facility] SERTraline 50 mg tablet 2019-08 00:00: 00 05-02 00:00 :00 No [id number] Take 1 tablet daily for 14 days. Then take 2 tablets daily. [facility] Immunizations Ordered Immunization Name Filled Immunization Name Date Status Comments Source Influenza Virus Vaccine Quad IM, Preserv and ABX Free 6 MO-64 YRS 2022-05-02 00:00:00 Completed [facility] SARS-COV-2 COVID-19 VACCINE 18 YRS+, BIVALENT 0.5ML, IM, (MODERNA BOOSTER) 2022-05-02 00:00:00 Completed [facility] Influenza Virus Vaccine Quad IM, Preserv and ABX Free 6 MO-64 YRS 2022-05-02 00:00:00 Completed [facility] SARS-COV-2 COVID-19 VACCINE 18 YRS+, BIVALENT 0.5ML, IM, (MODERNA BOOSTER) 2022-05-02 00:00:00 Completed [facility] Influenza Virus Vaccine Quad IM, Preserv and ABX Free 6 MO-64 YRS 2022-05-02 00:00:00 Completed [facility] SARS-COV-2 COVID-19 VACCINE 18 YRS+, BIVALENT 0.5ML, IM, (MODERNA BOOSTER) 2022-05-02 00:00:00 Completed [facility] Influenza Virus Vaccine Quad IM, Preserv and ABX Free 6 MO-64 YRS 2022-05-02 00:00:00 Completed [facility] SARS-COV-2 COVID-19 VACCINE 18 YRS+, BIVALENT 0.5ML, IM, (MODERNA BOOSTER) 2022-05-02 00:00:00 Completed [facility] Influenza Virus Vaccine Quad IM, Preserv and ABX Free 6 MO-64 YRS 2022-05-02 00:00:00 Completed [facility] SARS-COV-2 COVID-19 VACCINE 18 YRS+, BIVALENT 0.5ML, IM, (MODERNA BOOSTER) 2022-05-02 00:00:00 Completed [facility] Influenza Virus Vaccine Quad IM, Preserv and ABX Free 6 MO-64 YRS 2022-05-02 00:00:00 Completed [facility] SARS-COV-2 COVID-19 VACCINE 12 YRS+, BIVALENT 0.5ML, IM, (MODERNA BOOSTER) 2022-05-02 00:00:00 Completed [facility] Influenza Virus Vaccine Quad IM, Preserv and ABX Free 6 MO-64 YRS 2022-05-02 00:00:00 Completed [facility] SARS-COV-2 COVID-19 VACCINE 12 YRS+, BIVALENT 0.5ML, IM, (MODERNA BOOSTER) 2022-05-02 00:00:00 Completed [facility] Influenza Virus Vaccine Quad IM, Preserv and ABX Free 6 MO-64 YRS 2022-05-02 00:00:00 Completed [facility] SARS-COV-2 COVID-19 VACCINE 12 YRS+, BIVALENT 0.5ML, IM, (MODERNA BOOSTER) 2022-05-02 00:00:00 Completed [facility] Influenza Virus Vaccine Quad IM, Preserv and ABX Free 6 MO-64 YRS 2022-05-02 00:00:00 Completed [facility] SARS-COV-2 COVID-19 VACCINE 12 YRS+, BIVALENT 0.5ML, IM, (MODERNA BOOSTER) 2022-05-02 00:00:00 Completed [facility] Influenza Virus Vaccine Quad IM, Preserv and ABX Free 6 MO-64 YRS 2022-05-02 00:00:00 Completed [facility] SARS-COV-2 COVID-19 VACCINE 12 YRS+, BIVALENT 0.5ML, IM, (MODERNA BOOSTER) 2022-05-02 00:00:00 Completed [facility] Influenza Virus Vaccine Quad IM, Preserv and ABX Free 6 MO-64 YRS 2022-05-02 00:00:00 Completed [facility] SARS-COV-2 COVID-19 VACCINE 12 YRS+, BIVALENT 0.5ML, IM, (MODERNA-BLUE TOP) 2022-05-02 00:00:00 Completed [facility] Influenza Virus Vaccine Quad IM, Preserv and ABX Free 6 MO-64 YRS 2022-05-02 00:00:00 Completed [facility] SARS-COV-2 COVID-19 VACCINE 12 YRS+, BIVALENT 0.5ML, IM, (MODERNA-BLUE TOP) 2022-05-02 00:00:00 Completed [facility] Influenza Virus Vaccine Quad IM, Preserv and ABX Free 6 MO-64 YRS 2022-05-02 00:00:00 Completed [facility] SARS-COV-2 COVID-19 VACCINE 12 YRS+, BIVALENT 0.5ML, IM, (MODERNA-BLUE TOP) 2022-05-02 00:00:00 Completed [facility] Influenza Virus Vaccine Quad IM, Preserv and ABX Free 6 MO-64 YRS 2022-05-02 00:00:00 Completed [facility] SARS-COV-2 COVID-19 VACCINE 12 YRS+, BIVALENT 0.5ML, IM, (MODERNA-BLUE TOP) 2022-05-02 00:00:00 Completed [facility] Influenza Virus Vaccine Quad IM, Preserv and ABX Free 6 MO-64 YRS 2022-05-02 00:00:00 Completed [facility] SARS-COV-2 COVID-19 VACCINE 12 YRS+, BIVALENT 0.5ML, IM, (MODERNA-BLUE TOP) 2022-05-02 00:00:00 Completed [facility] Influenza Virus Vaccine Quad IM, Preserv and ABX Free 6 MO-64 YRS 2022-05-02 00:00:00 Completed [facility] SARS-COV-2 COVID-19 VACCINE 12 YRS+, BIVALENT 0.5ML, IM, (MODERNA-BLUE TOP) 2022-05-02 00:00:00 Completed [facility] Influenza Virus Vaccine Quad IM, Preserv and ABX Free 6 MO-64 YRS 2022-05-02 00:00:00 Completed [facility] SARS-COV-2 COVID-19 VACCINE 12 YRS+, BIVALENT 0.5ML, IM, (MODERNA-BLUE TOP) 2022-05-02 00:00:00 Completed [facility] Influenza Virus Vaccine Quad IM, Preserv and ABX Free 6 MO-64 YRS 2022-05-02 00:00:00 Completed [facility] SARS-COV-2 COVID-19 VACCINE 12 YRS+, BIVALENT 0.5ML, IM, (MODERNA-BLUE TOP) 2022-05-02 00:00:00 Completed [facility] Influenza Virus Vaccine Quad IM, Preserv and ABX Free 6 MO-64 YRS (FLUCELVAX) 2022-05-02 00:00:00 Completed [facility] SARS-COV-2 COVID-19 VACCINE 12 YRS+, BIVALENT 0.5ML, IM, (MODERNA-BLUE TOP) 2022-05-02 00:00:00 Completed SARS-COV-2 COVID-19 PFIZER VACCINE 2021-10-18 00:00:00 Completed [facility] Influenza Virus Vaccine Quad IM, Preserv and ABX Free 6 MO-64 YRS 2021-10-18 00:00:00 Completed [facility] SARS-COV-2 COVID-19 PFIZER VACCINE 2021-10-18 00:00:00 Completed [facility] Influenza Virus Vaccine Quad IM, Preserv and ABX Free 6 MO-64 YRS 2021-10-18 00:00:00 Completed [facility] SARS-COV-2 COVID-19 PFIZER VACCINE 2021-10-18 00:00:00 Completed [facility] Influenza Virus Vaccine Quad IM, Preserv and ABX Free 6 MO-64 YRS 2021-10-18 00:00:00 Completed [facility] SARS-COV-2 COVID-19 PFIZER VACCINE 2021-10-18 00:00:00 Completed [facility] Influenza Virus Vaccine Quad IM, Preserv and ABX Free 6 MO-64 YRS 2021-10-18 00:00:00 Completed [facility] SARS-COV-2 COVID-19 PFIZER VACCINE 2021-10-18 00:00:00 Completed [facility] Influenza Virus Vaccine Quad IM, Preserv and ABX Free 6 MO-64 YRS 2021-10-18 00:00:00 Completed [facility] SARS-COV-2 COVID-19 PFIZER VACCINE 2021-10-18 00:00:00 Completed [facility] Influenza Virus Vaccine Quad IM, Preserv and ABX Free 6 MO-64 YRS 2021-10-18 00:00:00 Completed [facility] SARS-COV-2 COVID-19 PFIZER VACCINE 2021-10-18 00:00:00 Completed [facility] Influenza Virus Vaccine Quad IM, Preserv and ABX Free 6 MO-64 YRS 2021-10-18 00:00:00 Completed [facility] SARS-COV-2 COVID-19 PFIZER VACCINE 2021-10-18 00:00:00 Completed [facility] Influenza Virus Vaccine Quad IM, Preserv and ABX Free 6 MO-64 YRS 2021-10-18 00:00:00 Completed [facility] SARS-COV-2 COVID-19 PFIZER VACCINE 2021-10-18 00:00:00 Completed [facility] Influenza Virus Vaccine Quad IM, Preserv and ABX Free 6 MO-64 YRS 2021-10-18 00:00:00 Completed [facility] SARS-COV-2 COVID-19 PFIZER VACCINE 2021-10-18 00:00:00 Completed [facility] Influenza Virus Vaccine Quad IM, Preserv and ABX Free 6 MO-64 YRS 2021-10-18 00:00:00 Completed [facility] SARS-COV-2 COVID-19 PFIZER VACCINE 2021-10-18 00:00:00 Completed [facility] Influenza Virus Vaccine Quad IM, Preserv and ABX Free 6 MO-64 YRS 2021-10-18 00:00:00 Completed [facility] SARS-COV-2 COVID-19 PFIZER VACCINE 2021-10-18 00:00:00 Completed [facility] Influenza Virus Vaccine Quad IM, Preserv and ABX Free 6 MO-64 YRS 2021-10-18 00:00:00 Completed [facility] SARS-COV-2 COVID-19 PFIZER VACCINE 2021-10-18 00:00:00 Completed [facility] Influenza Virus Vaccine Quad IM, Preserv and ABX Free 6 MO-64 YRS 2021-10-18 00:00:00 Completed [facility] SARS-COV-2 COVID-19 PFIZER VACCINE 2021-10-18 00:00:00 Completed [facility] Influenza Virus Vaccine Quad IM, Preserv and ABX Free 6 MO-64 YRS 2021-10-18 00:00:00 Completed [facility] SARS-COV-2 COVID-19 PFIZER VACCINE 2021-10-18 00:00:00 Completed [facility] Influenza Virus Vaccine Quad IM, Preserv and ABX Free 6 MO-64 YRS 2021-10-18 00:00:00 Completed [facility] SARS-COV-2 COVID-19 PFIZER VACCINE 2021-10-18 00:00:00 Completed [facility] Influenza Virus Vaccine Quad IM, Preserv and ABX Free 6 MO-64 YRS 2021-10-18 00:00:00 Completed [facility] SARS-COV-2 COVID-19 PFIZER VACCINE 2021-10-18 00:00:00 Completed [facility] Influenza Virus Vaccine Quad IM, Preserv and ABX Free 6 MO-64 YRS 2021-10-18 00:00:00 Completed [facility] SARS-COV-2 COVID-19 PFIZER VACCINE 2021-10-18 00:00:00 Completed [facility] Influenza Virus Vaccine Quad IM, Preserv and ABX Free 6 MO-64 YRS 2021-10-18 00:00:00 Completed [facility] SARS-COV-2 COVID-19 PFIZER VACCINE 2021-10-18 00:00:00 Completed [facility] Influenza Virus Vaccine Quad IM, Preserv and ABX Free 6 MO-64 YRS 2021-10-18 00:00:00 Completed [facility] SARS-COV-2 COVID-19 PFIZER VACCINE 2021-10-18 00:00:00 Completed [facility] Influenza Virus Vaccine Quad IM, Preserv and ABX Free 6 MO-64 YRS 2021-10-18 00:00:00 Completed [facility] SARS-COV-2 COVID-19 PFIZER VACCINE 2021-10-18 00:00:00 Completed [facility] Influenza Virus Vaccine Quad IM, Preserv and ABX Free 6 MO-64 YRS 2021-10-18 00:00:00 Completed [facility] SARS-COV-2 COVID-19 PFIZER VACCINE 2021-10-18 00:00:00 Completed [facility] Influenza Virus Vaccine Quad IM, Preserv and ABX Free 6 MO-64 YRS 2021-10-18 00:00:00 Completed [facility] SARS-COV-2 COVID-19 PFIZER VACCINE 2021-10-18 00:00:00 Completed [facility] Influenza Virus Vaccine Quad IM, Preserv and ABX Free 6 MO-64 YRS 2021-10-18 00:00:00 Completed [facility] SARS-COV-2 COVID-19 PFIZER VACCINE 2021-10-18 00:00:00 Completed [facility] Influenza Virus Vaccine Quad IM, Preserv and ABX Free 6 MO-64 YRS 2021-10-18 00:00:00 Completed [facility] SARS-COV-2 COVID-19 PFIZER VACCINE 2021-10-18 00:00:00 Completed [facility] Influenza Virus Vaccine Quad IM, Preserv and ABX Free 6 MO-64 YRS 2021-10-18 00:00:00 Completed [facility] SARS-COV-2 COVID-19 PFIZER VACCINE 2021-10-18 00:00:00 Completed Influenza Virus Vaccine Quad IM, Preserv and ABX Free 6 MO-64 YRS (FLUCELVAX) 2021-10-18 00:00:00 Completed SARS-COV-2 COVID-19 PFIZER VACCINE 2021-06-14 00:00:00 Completed [facility] SARS-COV-2 COVID-19 PFIZER VACCINE 2021-06-14 00:00:00 Completed [facility] SARS-COV-2 COVID-19 PFIZER VACCINE 2021-06-14 00:00:00 Completed [facility] SARS-COV-2 COVID-19 PFIZER VACCINE 2021-06-14 00:00:00 Completed [facility] SARS-COV-2 COVID-19 PFIZER VACCINE 2021-06-14 00:00:00 Completed [facility] SARS-COV-2 COVID-19 PFIZER VACCINE 2021-06-14 00:00:00 Completed [facility] SARS-COV-2 COVID-19 PFIZER VACCINE 2021-06-14 00:00:00 Completed [facility] SARS-COV-2 COVID-19 PFIZER VACCINE 2021-06-14 00:00:00 Completed [facility] SARS-COV-2 COVID-19 PFIZER VACCINE 2021-06-14 00:00:00 Completed [facility] SARS-COV-2 COVID-19 PFIZER VACCINE 2021-06-14 00:00:00 Completed [facility] SARS-COV-2 COVID-19 PFIZER VACCINE 2021-06-14 00:00:00 Completed [facility] SARS-COV-2 COVID-19 PFIZER VACCINE 2021-06-14 00:00:00 Completed [facility] SARS-COV-2 COVID-19 PFIZER VACCINE 2021-06-14 00:00:00 Completed [facility] SARS-COV-2 COVID-19 PFIZER VACCINE 2021-06-14 00:00:00 Completed [facility] SARS-COV-2 COVID-19 PFIZER VACCINE 2021-06-14 00:00:00 Completed [facility] SARS-COV-2 COVID-19 PFIZER VACCINE 2021-06-14 00:00:00 Completed [facility] SARS-COV-2 COVID-19 PFIZER VACCINE 2021-06-14 00:00:00 Completed [facility] SARS-COV-2 COVID-19 PFIZER VACCINE 2021-06-14 00:00:00 Completed [facility] SARS-COV-2 COVID-19 PFIZER VACCINE 2021-06-14 00:00:00 Completed [facility] SARS-COV-2 COVID-19 PFIZER VACCINE 2021-06-14 00:00:00 Completed [facility] SARS-COV-2 COVID-19 PFIZER VACCINE 2021-06-14 00:00:00 Completed [facility] SARS-COV-2 COVID-19 PFIZER VACCINE 2021-06-14 00:00:00 Completed [facility] SARS-COV-2 COVID-19 PFIZER VACCINE 2021-06-14 00:00:00 Completed [facility] SARS-COV-2 COVID-19 PFIZER VACCINE 2021-06-14 00:00:00 Completed [facility] SARS-COV-2 COVID-19 PFIZER VACCINE 2021-06-14 00:00:00 Completed [facility] SARS-COV-2 COVID-19 PFIZER VACCINE 2021-06-14 00:00:00 Completed [facility] SARS-COV-2 COVID-19 PFIZER VACCINE 2021-06-14 00:00:00 Completed Influenza Virus Vaccine Recomb Quad IM, Preserv and ABX Free 18-64 YRS 2020-07-13 00:00:00 Completed [facility] Influenza Virus Vaccine Recomb Quad IM, Preserv and ABX Free 18-64 2020-07-13 00:00:00 Completed [facility] Influenza Virus Vaccine Recomb Quad IM, Preserv and ABX Free 18-64 YRS 2020-07-13 00:00:00 Completed [facility] Influenza Virus Vaccine Recomb Quad IM, Preserv and ABX Free 18-64 YRS 2020-07-13 00:00:00 Completed [facility] Influenza Virus Vaccine Recomb Quad IM, Preserv and ABX Free 18-64 YRS 2020-07-13 00:00:00 Completed [facility] Influenza Virus Vaccine Recomb Quad IM, Preserv and ABX Free 18-64 YRS 2020-07-13 00:00:00 Completed [facility] Influenza Virus Vaccine Recomb Quad IM, Preserv and ABX Free 18-64 YRS 2020-07-13 00:00:00 Completed [facility] Influenza Virus Vaccine Recomb Quad IM, Preserv and ABX Free 18-64 [facility] 2020-07-13 00:00:00 Completed [facility] Influenza Virus Vaccine Recomb Quad IM, Preserv and ABX Free 18-64 [facility] 2020-07-13 00:00:00 Completed [facility] Influenza Virus Vaccine Recomb Quad IM, Preserv and ABX Free 1864 [facility] 2020-07-13 00:00:00 Completed [facility] Influenza Virus Vaccine Recomb Quad IM, Preserv and ABX Free 1864 [facility] 2020-07-13 00:00:00 Completed [facility] Influenza Virus Vaccine Recomb Quad IM, Preserv and ABX Free 1864 [facility] 2020-07-13 00:00:00 Completed [facility] Influenza Virus Vaccine Recomb Quad IM, Preserv and ABX Free [facility]64 [facility] 2020-07-13 00:00:00 Completed [facility] Influenza Virus Vaccine Recomb Quad IM, Preserv and ABX Free 1864 [facility] 2020-07-13 00:00:00 Completed [facility] Influenza Virus Vaccine Recomb Quad IM, Preserv and ABX Free [facility]64 [facility] 2020-07-13 00:00:00 Completed [facility] Influenza Virus Vaccine Recomb Quad IM, Preserv and ABX Free 1864 [facility] 2020-07-13 00:00:00 Completed [facility] Influenza Virus Vaccine Recomb Quad IM, Preserv and ABX Free [facility]64 [facility] 2020-07-13 00:00:00 Completed [facility] Influenza Virus Vaccine Recomb Quad IM, Preserv and ABX Free 1864 [facility] 2020-07-13 00:00:00 Completed [facility] Influenza Virus Vaccine Recomb Quad IM, Preserv and ABX Free 1864 [facility] 2020-07-13 00:00:00 Completed [facility] Influenza Virus Vaccine Recomb Quad IM, Preserv and ABX Free 1864 [facility] 2020-07-13 00:00:00 Completed [facility] Influenza Virus Vaccine Recomb Quad IM, Preserv and ABX Free 1864 [facility] 2020-07-13 00:00:00 Completed [facility] Influenza Virus Vaccine Recomb Quad IM, Preserv and ABX Free 1864 [facility] 2020-07-13 00:00:00 Completed [facility] Influenza Virus Vaccine Recomb Quad IM, Preserv and ABX Free 18-64 YRS 2020-07-13 00:00:00 Completed [facility] Influenza Virus Vaccine Recomb Quad IM, Preserv and ABX Free 18-64 YRS 2020-07-13 00:00:00 Completed [facility] Influenza Virus Vaccine Recomb Quad IM, Preserv and ABX Free 18-64 YRS 2020-07-13 00:00:00 Completed [facility] Influenza Virus Vaccine Recomb Quad IM, Preserv and ABX Free 18-64 YRS 2020-07-13 00:00:00 Completed [facility] Influenza Virus Vaccine Recomb Quad IM, Preserv and ABX Free 18-64 YRS 2020-07-13 00:00:00 Completed [facility] Twinrix (hep a/hep b) 2018-09-24 00:00:00 Completed [facility] Twinrix (hep a/hep b) 2018-09-24 00:00:00 Completed [facility] Twinrix (hep a/hep b) 2018-09-24 00:00:00 Completed [facility] Twinrix (hep a/hep b) 2018-09-24 00:00:00 Completed [facility] Twinrix (hep a/hep b) 2018-09-24 00:00:00 Completed [facility] Twinrix (hep a/hep b) 2018-09-24 00:00:00 Completed [facility] Twinrix (hep a/hep b) 2018-09-24 00:00:00 Completed [facility] Twin[facility] (hep a/hep b) 2018-09-24 00:00:00 Completed [facility] Twinrix (hep a/hep b) 2018-09-24 00:00:00 Completed [facility] Twinrix (hep a/hep b) 2018-09-24 00:00:00 Completed [facility] Twinrix (hep a/hep b) 2018-09-24 00:00:00 Completed [facility] Twin[facility] (hep a/hep b) 2018-09-24 00:00:00 Completed [facility] Twin[facility] (hep a/hep b) 2018-09-24 00:00:00 Completed [facility] Twinrix (hep a/hep b) 2018-09-24 00:00:00 Completed [facility] Twinrix (hep a/hep b) 2018-09-24 00:00:00 Completed [facility] Twinrix (hep a/hep b) 2018-09-24 00:00:00 Completed [facility] Twin[facility] (hep a/hep b) 2018-09-24 00:00:00 Completed [facility] (hep a/hep b) 2018-09-24 00:00:00 Completed [facility] Twinrix (hep a/hep b) 2018-09-24 00:00:00 Completed [facility] Twinrix (hep a/hep b) 2018-09-24 00:00:00 Completed [facility] Twinrix (hep a/hep b) 2018-09-24 00:00:00 Completed [facility] Twinrix (hep a/hep b) 2018-09-24 00:00:00 Completed [facility] Twinrix (hep a/hep b) 2018-09-24 00:00:00 Completed [facility] Twinrix (hep a/hep b) 2018-09-24 00:00:00 Completed [facility] Twinrix (hep a/hep b) 2018-09-24 00:00:00 Completed [facility] Twinrix (hep a/hep b) 2018-09-24 00:00:00 Completed [facility] Twinrix (hep a/hep b) 2018-09-24 00:00:00 Completed Influenza Virus Vaccine Quad .5 mL IM 6+ MO 2018-06-11 00:00:00 Completed [facility] Twinrix (hep a/hep b) 2018-06-11 00:00:00 Completed [facility] Influenza Virus Vaccine Quad .5 mL IM 6+ MO 2018-06-11 00:00:00 Completed [facility] Twinrix (hep a/hep b) 2018-06-11 00:00:00 Completed [facility] Influenza Virus Vaccine Quad .5 mL IM 6+ MO 2018-06-11 00:00:00 Completed [facility] Twinrix (hep a/hep b) 2018-06-11 00:00:00 Completed [facility] Influenza Virus Vaccine Quad .5 mL IM 6+ MO 2018-06-11 00:00:00 Completed [facility] Twinrix (hep a/hep b) 2018-06-11 00:00:00 Completed [facility] Influenza Virus Vaccine Quad .5 mL IM 6+ MO 2018-06-11 00:00:00 Completed [facility] Twinrix (hep a/hep b) 2018-06-11 00:00:00 Completed [facility] Influenza Virus Vaccine Quad .5 mL IM 6+ MO 2018-06-11 00:00:00 Completed [facility] Twinrix (hep a/hep b) 2018-06-11 00:00:00 Completed [facility] Influenza Virus Vaccine Quad .5 mL IM 6+ MO 2018-06-11 00:00:00 Completed [facility] Twinrix (hep a/hep b) 2018-06-11 00:00:00 Completed [facility] Influenza Virus Vaccine Quad .5 mL IM 6+ MO 2018-06-11 00:00:00 Completed [facility] Twinrix (hep a/hep b) 2018-06-11 00:00:00 Completed [facility] Influenza Virus Vaccine Quad .5 mL IM 6+ MO 2018-06-11 00:00:00 Completed [facility] Twinrix (hep a/hep b) 2018-06-11 00:00:00 Completed [facility] Influenza Virus Vaccine Quad .5 mL IM 6+ MO 2018-06-11 00:00:00 Completed [facility] Twinrix (hep a/hep b) 2018-06-11 00:00:00 Completed [facility] Influenza Virus Vaccine Quad .5 mL IM 6+ MO 2018-06-11 00:00:00 Completed [facility] Twinrix (hep a/hep b) 2018-06-11 00:00:00 Completed [facility] Influenza Virus Vaccine Quad .5 mL IM 6+ MO 2018-06-11 00:00:00 Completed [facility] Twinrix (hep a/hep b) 2018-06-11 00:00:00 Completed [facility] Influenza Virus Vaccine Quad .5 mL IM 6+ MO 2018-06-11 00:00:00 Completed [facility] Twinrix (hep a/hep b) 2018-06-11 00:00:00 Completed [facility] Influenza Virus Vaccine Quad .5 mL IM 6+ MO 2018-06-11 00:00:00 Completed [facility] Twinrix (hep a/hep b) 2018-06-11 00:00:00 Completed [facility] Influenza Virus Vaccine Quad .5 mL IM 6+ MO 2018-06-11 00:00:00 Completed [facility] Twinrix (hep a/hep b) 2018-06-11 00:00:00 Completed [facility] Influenza Virus Vaccine Quad .5 mL IM 6+ MO 2018-06-11 00:00:00 Completed [facility] Twinrix (hep a/hep b) 2018-06-11 00:00:00 Completed [facility] Influenza Virus Vaccine Quad .5 mL IM 6+ MO 2018-06-11 00:00:00 Completed [facility] Twinrix (hep a/hep b) 2018-06-11 00:00:00 Completed [facility] Influenza Virus Vaccine Quad .5 mL IM 6+ MO 2018-06-11 00:00:00 Completed [facility] Twinrix (hep a/hep b) 2018-06-11 00:00:00 Completed [facility] Influenza Virus Vaccine Quad .5 mL IM 6+ MO 2018-06-11 00:00:00 Completed [facility] Twinrix (hep a/hep b) 2018-06-11 00:00:00 Completed [facility] Influenza Virus Vaccine Quad .5 mL IM 6+ MO 2018-06-11 00:00:00 Completed [facility] Twinrix (hep a/hep b) 2018-06-11 00:00:00 Completed [facility] Influenza Virus Vaccine Quad .5 mL IM 6+ MO 2018-06-11 00:00:00 Completed [facility] Twinrix (hep a/hep b) 2018-06-11 00:00:00 Completed [facility] Influenza Virus Vaccine Quad .5 mL IM 6+ MO 2018-06-11 00:00:00 Completed [facility] Twinrix (hep a/hep b) 2018-06-11 00:00:00 Completed [facility] Influenza Virus Vaccine Quad .5 mL IM 6+ MO 2018-06-11 00:00:00 Completed [facility] Twinrix (hep a/hep b) 2018-06-11 00:00:00 Completed [facility] Influenza Virus Vaccine Quad .5 mL IM 6+ MO 2018-06-11 00:00:00 Completed [facility] Twinrix (hep a/hep b) 2018-06-11 00:00:00 Completed [facility] Influenza Virus Vaccine Quad .5 mL IM 6+ MO 2018-06-11 00:00:00 Completed [facility] Twinrix (hep a/hep b) 2018-06-11 00:00:00 Completed [facility] Influenza Virus Vaccine Quad .5 mL IM 6+ MO 2018-06-11 00:00:00 Completed [facility] Twinrix (hep a/hep b) 2018-06-11 00:00:00 Completed [facility] Influenza Virus Vaccine Quad .5 mL IM 6+ MO (FLUZONE/FLULAVAL/F LUARIX) 2018-06-11 00:00:00 Completed Twinrix (hep a/hep b) 2018-06-11 00:00:00 Completed Pneumococcal Polysaccharide, PPSV23 (PNEUMOVAX) 2017-10-09 00:00:00 Completed [facility] TDAP (ADACEL) VACCINE 2017-10-09 00:00:00 Completed [facility] Twinrix (hep a/hep b) 2017-10-09 00:00:00 Completed [facility] Pneumococcal Polysaccharide, PPSV23 (PNEUMOVAX) 2017-10-09 00:00:00 Completed [facility] TDAP (ADACEL) VACCINE 2017-10-09 00:00:00 Completed [facility] Twinrix (hep a/hep b) 2017-10-09 00:00:00 Completed [facility] Pneumococcal Polysaccharide, PPSV23 (PNEUMOVAX) 2017-10-09 00:00:00 Completed [facility] TDAP (ADACEL) VACCINE 2017-10-09 00:00:00 Completed [facility] Twinrix (hep a/hep b) 2017-10-09 00:00:00 Completed [facility] Pneumococcal Polysaccharide, PPSV23 (PNEUMOVAX) 2017-10-09 00:00:00 Completed [facility] TDAP (ADACEL) VACCINE 2017-10-09 00:00:00 Completed [facility] Twinrix (hep a/hep b) 2017-10-09 00:00:00 Completed [facility] Pneumococcal Polysaccharide, PPSV23 (PNEUMOVAX) 2017-10-09 00:00:00 Completed [facility] TDAP (ADACEL) VACCINE 2017-10-09 00:00:00 Completed [facility] Twinrix (hep a/hep b) 2017-10-09 00:00:00 Completed [facility] Pneumococcal Polysaccharide, PPSV23 (PNEUMOVAX) 2017-10-09 00:00:00 Completed [facility] TDAP (ADACEL) VACCINE 2017-10-09 00:00:00 Completed [facility] Twinrix (hep a/hep b) 2017-10-09 00:00:00 Completed [facility] Pneumococcal Polysaccharide, PPSV23 (PNEUMOVAX) 2017-10-09 00:00:00 Completed [facility] TDAP (ADACEL) VACCINE 2017-10-09 00:00:00 Completed [facility] Twinrix (hep a/hep b) 2017-10-09 00:00:00 Completed [facility] Pneumococcal Polysaccharide, PPSV23 (PNEUMOVAX) 2017-10-09 00:00:00 Completed [facility] TDAP (ADACEL) VACCINE 2017-10-09 00:00:00 Completed [facility] Twinrix (hep a/hep b) 2017-10-09 00:00:00 Completed [facility] Pneumococcal Polysaccharide, PPSV23 (PNEUMOVAX) 2017-10-09 00:00:00 Completed [facility] TDAP (ADACEL) VACCINE 2017-10-09 00:00:00 Completed [facility] Twinrix (hep a/hep b) 2017-10-09 00:00:00 Completed [facility] Pneumococcal Polysaccharide, PPSV23 (PNEUMOVAX) 2017-10-09 00:00:00 Completed [facility] TDAP (ADACEL) VACCINE 2017-10-09 00:00:00 Completed [facility] Twinrix (hep a/hep b) 2017-10-09 00:00:00 Completed [facility] Pneumococcal Polysaccharide, PPSV23 (PNEUMOVAX) 2017-10-09 00:00:00 Completed [facility] TDAP (ADACEL) VACCINE 2017-10-09 00:00:00 Completed [facility] Twinrix (hep a/hep b) 2017-10-09 00:00:00 Completed [facility] Pneumococcal Polysaccharide, PPSV23 (PNEUMOVAX) 2017-10-09 00:00:00 Completed [facility] TDAP (ADACEL) VACCINE 2017-10-09 00:00:00 Completed [facility] Twinrix (hep a/hep b) 2017-10-09 00:00:00 Completed [facility] Pneumococcal Polysaccharide, PPSV23 (PNEUMOVAX) 2017-10-09 00:00:00 Completed [facility] TDAP (ADACEL) VACCINE 2017-10-09 00:00:00 Completed [facility] Twinrix (hep a/hep b) 2017-10-09 00:00:00 Completed [facility] Pneumococcal Polysaccharide, PPSV23 (PNEUMOVAX) 2017-10-09 00:00:00 Completed [facility] TDAP (ADACEL) VACCINE 2017-10-09 00:00:00 Completed [facility] Twinrix (hep a/hep b) 2017-10-09 00:00:00 Completed [facility] Pneumococcal Polysaccharide, PPSV23 (PNEUMOVAX) 2017-10-09 00:00:00 Completed [facility] TDAP (ADACEL) VACCINE 2017-10-09 00:00:00 Completed [facility] Twinrix (hep a/hep b) 2017-10-09 00:00:00 Completed [facility] Pneumococcal Polysaccharide, PPSV23 (PNEUMOVAX) 2017-10-09 00:00:00 Completed [facility] TDAP (ADACEL) VACCINE 2017-10-09 00:00:00 Completed [facility] Twinrix (hep a/hep b) 2017-10-09 00:00:00 Completed [facility] Pneumococcal Polysaccharide, PPSV23 (PNEUMOVAX) 2017-10-09 00:00:00 Completed [facility] TDAP (ADACEL) VACCINE 2017-10-09 00:00:00 Completed [facility] Twinrix (hep a/hep b) 2017-10-09 00:00:00 Completed [facility] Pneumococcal Polysaccharide, PPSV23 (PNEUMOVAX) 2017-10-09 00:00:00 Completed [facility] TDAP (ADACEL) VACCINE 2017-10-09 00:00:00 Completed [facility] Twinrix (hep a/hep b) 2017-10-09 00:00:00 Completed [facility] Pneumococcal Polysaccharide, PPSV23 (PNEUMOVAX) 2017-10-09 00:00:00 Completed [facility] TDAP (ADACEL) VACCINE 2017-10-09 00:00:00 Completed [facility] Twinrix (hep a/hep b) 2017-10-09 00:00:00 Completed [facility] Pneumococcal Polysaccharide, PPSV23 (PNEUMOVAX) 2017-10-09 00:00:00 Completed [facility] TDAP (ADACEL) VACCINE 2017-10-09 00:00:00 Completed [facility] Twinrix (hep a/hep b) 2017-10-09 00:00:00 Completed [facility] Pneumococcal Polysaccharide, PPSV23 (PNEUMOVAX) 2017-10-09 00:00:00 Completed [facility] TDAP (ADACEL) VACCINE 2017-10-09 00:00:00 Completed [facility] Twinrix (hep a/hep b) 2017-10-09 00:00:00 Completed [facility] Pneumococcal Polysaccharide, PPSV23 (PNEUMOVAX) 2017-10-09 00:00:00 Completed [facility] TDAP (ADACEL) VACCINE 2017-10-09 00:00:00 Completed [facility] Twinrix (hep a/hep b) 2017-10-09 00:00:00 Completed [facility] Pneumococcal Polysaccharide, PPSV23 (PNEUMOVAX) 2017-10-09 00:00:00 Completed [facility] TDAP (ADACEL) VACCINE 2017-10-09 00:00:00 Completed [facility] Twinrix (hep a/hep b) 2017-10-09 00:00:00 Completed [facility] Pneumococcal Polysaccharide, PPSV23 (PNEUMOVAX) 2017-10-09 00:00:00 Completed [facility] TDAP (ADACEL) VACCINE 2017-10-09 00:00:00 Completed [facility] Twinrix (hep a/hep b) 2017-10-09 00:00:00 Completed [facility] Pneumococcal Polysaccharide, PPSV23 (PNEUMOVAX) 2017-10-09 00:00:00 Completed [facility] TDAP (ADACEL) VACCINE 2017-10-09 00:00:00 Completed [facility] (hep a/hep b) 2017-10-09 00:00:00 Completed [facility] Pneumococcal Polysaccharide, PPSV23 (PNEUMOVAX) 2017-10-09 00:00:00 Completed [facility] TDAP (ADACEL) VACCINE 2017-10-09 00:00:00 Completed [facility] Twinrix (hep a/hep b) 2017-10-09 00:00:00 Completed [facility] Pneumococcal Polysaccharide, PPSV23 (PNEUMOVAX) 2017-10-09 00:00:00 Completed [facility] TDAP (ADACEL) VACCINE 2017-10-09 00:00:00 Completed [facility] (hep a/hep b) 2017-10-09 00:00:00 Completed Pneumococcal 13 Conjugate, PCV13 (Prevnar 13) 2017-06-05 00:00:00 Completed [facility] Influenza Virus Vaccine Quad ID 18-64 YRS 2017-06-05 00:00:00 Completed [facility] Pneumococcal 13 Conjugate, PCV13 (Prevnar 13) 2017-06-05 00:00:00 Completed [facility] Influenza Virus Vaccine Quad ID 18-64 YRS 2017-06-05 00:00:00 Completed [facility] Pneumococcal 13 Conjugate, PCV13 (Prevnar 13) 2017-06-05 00:00:00 Completed [facility] Influenza Virus Vaccine Quad ID 18-64 YRS 2017-06-05 00:00:00 Completed [facility] Pneumococcal 13 Conjugate, PCV13 (Prevnar 13) 2017-06-05 00:00:00 Completed [facility] Influenza Virus Vaccine Quad ID 18-64 YRS 2017-06-05 00:00:00 Completed [facility] Pneumococcal 13 Conjugate, PCV13 (Prevnar 13) 2017-06-05 00:00:00 Completed [facility] Influenza Virus Vaccine Quad ID 18-64 YRS 2017-06-05 00:00:00 Completed [facility] Pneumococcal 13 Conjugate, PCV13 (Prevnar 13) 2017-06-05 00:00:00 Completed [facility] Influenza Virus Vaccine Quad ID 18-64 YRS 2017-06-05 00:00:00 Completed [facility] Pneumococcal 13 Conjugate, PCV13 (Prevnar 13) 2017-06-05 00:00:00 Completed [facility] Influenza Virus Vaccine Quad ID 18-64 YRS 2017-06-05 00:00:00 Completed [facility] Pneumococcal 13 Conjugate, PCV13 (Prevnar 13) 2017-06-05 00:00:00 Completed [facility] Influenza Virus Vaccine Quad ID 18-64 YRS 2017-06-05 00:00:00 Completed [facility] Pneumococcal 13 Conjugate, PCV13 (Prevnar 13) 2017-06-05 00:00:00 Completed [facility] Influenza Virus Vaccine Quad ID 18-64 YRS 2017-06-05 00:00:00 Completed [facility] Pneumococcal 13 Conjugate, PCV13 (Prevnar 13) 2017-06-05 00:00:00 Completed [facility] Influenza Virus Vaccine Quad ID 18-64 YRS 2017-06-05 00:00:00 Completed [facility] Pneumococcal 13 Conjugate, PCV13 (Prevnar 13) 2017-06-05 00:00:00 Completed [facility] Influenza Virus Vaccine Quad ID 18-64 YRS 2017-06-05 00:00:00 Completed [facility] Pneumococcal 13 Conjugate, PCV13 (Prevnar 13) 2017-06-05 00:00:00 Completed [facility] Influenza Virus Vaccine Quad ID 18-64 YRS 2017-06-05 00:00:00 Completed [facility] Pneumococcal 13 Conjugate, PCV13 (Prevnar 13) 2017-06-05 00:00:00 Completed [facility] Influenza Virus Vaccine Quad ID 18-64 YRS 2017-06-05 00:00:00 Completed [facility] Pneumococcal 13 Conjugate, PCV13 (Prevnar 13) 2017-06-05 00:00:00 Completed [facility] Influenza Virus Vaccine Quad ID 18-64 YRS 2017-06-05 00:00:00 Completed [facility] Pneumococcal 13 Conjugate, PCV13 (Prevnar 13) 2017-06-05 00:00:00 Completed [facility] Influenza Virus Vaccine Quad ID 18-64 YRS 2017-06-05 00:00:00 Completed [facility] Pneumococcal 13 Conjugate, PCV13 (Prevnar 13) 2017-06-05 00:00:00 Completed [facility] Influenza Virus Vaccine Quad ID 18-64 YRS 2017-06-05 00:00:00 Completed [facility] Pneumococcal 13 Conjugate, PCV13 (Prevnar 13) 2017-06-05 00:00:00 Completed [facility] Influenza Virus Vaccine Quad ID 18-64 YRS 2017-06-05 00:00:00 Completed [facility] Pneumococcal 13 Conjugate, PCV13 (Prevnar 13) 2017-06-05 00:00:00 Completed [facility] Influenza Virus Vaccine Quad ID 18-64 YRS 2017-06-05 00:00:00 Completed [facility] Pneumococcal 13 Conjugate, PCV13 (Prevnar 13) 2017-06-05 00:00:00 Completed [facility] Influenza Virus Vaccine Quad ID 18-64 YRS 2017-06-05 00:00:00 Completed [facility] Pneumococcal 13 Conjugate, PCV13 (Prevnar 13) 2017-06-05 00:00:00 Completed [facility] Influenza Virus Vaccine Quad ID 18-64 YRS 2017-06-05 00:00:00 Completed [facility] Pneumococcal 13 Conjugate, PCV13 (Prevnar 13) 2017-06-05 00:00:00 Completed [facility] Influenza Virus Vaccine Quad ID 18-64 YRS 2017-06-05 00:00:00 Completed [facility] Pneumococcal 13 Conjugate, PCV13 (Prevnar 13) 2017-06-05 00:00:00 Completed [facility] Influenza Virus Vaccine Quad ID 18-64 YRS 2017-06-05 00:00:00 Completed [facility] Pneumococcal 13 Conjugate, PCV13 (Prevnar 13) 2017-06-05 00:00:00 Completed [facility] Influenza Virus Vaccine Quad ID 18-64 YRS 2017-06-05 00:00:00 Completed [facility] Pneumococcal 13 Conjugate, PCV13 (Prevnar 13) 2017-06-05 00:00:00 Completed [facility] Influenza Virus Vaccine Quad ID 18-64 YRS 2017-06-05 00:00:00 Completed [facility] Pneumococcal 13 Conjugate, PCV13 (Prevnar 13) 2017-06-05 00:00:00 Completed [facility] Influenza Virus Vaccine Quad ID 18-64 YRS 2017-06-05 00:00:00 Completed [facility] Pneumococcal 13 Conjugate, PCV13 (Prevnar 13) 2017-06-05 00:00:00 Completed [facility] Influenza Virus Vaccine Quad ID 18-64 YRS 2017-06-05 00:00:00 Completed [facility] Pneumococcal 13 Conjugate, PCV13 (Prevnar 13) 2017-06-05 00:00:00 Completed [facility] Influenza Virus Vaccine Quad ID 18-64 YRS 2017-06-05 00:00:00 Completed Influenza Virus Vaccine Quad IM, Preserv and ABX Free 6 MO-64 YRS (FLUCELVAX) Unknown Completed [facility] SARS-COV-2 COVID-19 VACCINE 12 YRS+, BIVALENT 0.5ML, IM, (MODERNA-BLUE TOP) Unknown Completed [facility] Pneumococcal 13 Conjugate, PCV13 (Prevnar 13) Unknown Completed [facility] Influenza Virus Vaccine Quad ID 18-64 YRS Unknown Completed [facility] Pneumococcal Polysaccharide, PPSV23 (PNEUMOVAX) Unknown Completed [facility] TDAP (ADACEL) VACCINE Unknown Completed [facility] Twinrix (hep a/hep b) Unknown Completed [facility] Influenza Virus Vaccine Quad .5 mL IM 6+ MO (FLUZONE/FLULAVAL/F LUARIX) Unknown Completed [facility] Influenza Virus Vaccine Recomb Quad IM, Preserv and ABX Free 18-64 YRS Unknown Completed [facility] SARS-COV-2 COVID-19 PFIZER VACCINE Unknown Completed [facility] Influenza Virus Vaccine Quad IM, Preserv and ABX Free 6 MO-64 YRS (FLUCELVAX) Unknown Completed [facility] SARS-COV-2 COVID-19 VACCINE 12 YRS+, BIVALENT 0.5ML, IM, (MODERNA-BLUE TOP) Unknown Completed [facility] Pneumococcal 13 Conjugate, PCV13 (Prevnar 13) Unknown Completed [facility] Influenza Virus Vaccine Quad ID 18-64 YRS Unknown Completed [facility] Pneumococcal Polysaccharide, PPSV23 (PNEUMOVAX) Unknown Completed [facility] TDAP (ADACEL) VACCINE Unknown Completed [facility] Twinrix (hep a/hep b) Unknown Completed [facility] Influenza Virus Vaccine Quad .5 mL IM 6+ MO (FLUZONE/FLULAVAL/F LUARIX) Unknown Completed [facility] Influenza Virus Vaccine Recomb Quad IM, Preserv and ABX Free 18-64 YRS Unknown Completed [facility] SARS-COV-2 COVID-19 PFIZER VACCINE Unknown Completed [facility] Influenza Virus Vaccine Quad IM, Preserv and ABX Free 6 MO-64 YRS (FLUCELVAX) Unknown Completed [facility] SARS-COV-2 COVID-19 VACCINE 12 YRS+, BIVALENT 0.5ML, IM, (MODERNA-BLUE TOP) Unknown Completed [facility] Pneumococcal 13 Conjugate, PCV13 (Prevnar 13) Unknown Completed [facility] Influenza Virus Vaccine Quad ID 18-64 YRS Unknown Completed [facility] Pneumococcal Polysaccharide, PPSV23 (PNEUMOVAX) Unknown Completed [facility] TDAP (ADACEL) VACCINE Unknown Completed [facility] Twinrix (hep a/hep b) Unknown Completed [facility] Influenza Virus Vaccine Quad .5 mL IM 6+ MO (FLUZONE/FLULAVAL/F LUARIX) Unknown Completed [facility] Influenza Virus Vaccine Recomb Quad IM, Preserv and ABX Free 18-64 YRS Unknown Completed [facility] SARS-COV-2 COVID-19 PFIZER VACCINE Unknown Completed [facility] Influenza Virus Vaccine Quad IM, Preserv and ABX Free 6 MO-64 YRS (FLUCELVAX) Unknown Completed [facility] SARS-COV-2 COVID-19 VACCINE 12 YRS+, BIVALENT 0.5ML, IM, (MODERNA-BLUE TOP) Unknown Completed [facility] Pneumococcal 13 Conjugate, PCV13 (Prevnar 13) Unknown Completed [facility] Influenza Virus Vaccine Quad ID 18-64 YRS Unknown Completed [facility] Pneumococcal Polysaccharide, PPSV23 (PNEUMOVAX) Unknown Completed [facility] TDAP (ADACEL) VACCINE Unknown Completed [facility] Twinrix (hep a/hep b) Unknown Completed [facility] Influenza Virus Vaccine Quad .5 mL IM 6+ MO (FLUZONE/FLULAVAL/F LUARIX) Unknown Completed [facility] Influenza Virus Vaccine Recomb Quad IM, Preserv and ABX Free 18-64 YRS Unknown Completed [facility] SARS-COV-2 COVID-19 PFIZER VACCINE Unknown Completed [facility] Influenza Virus Vaccine Quad IM, Preserv and ABX Free 6 MO-64 YRS (FLUCELVAX) Unknown Completed [facility] SARS-COV-2 COVID-19 VACCINE 12 YRS+, BIVALENT 0.5ML, IM, (MODERNA-BLUE TOP) Unknown Completed [facility] Pneumococcal 13 Conjugate, PCV13 (Prevnar 13) Unknown Completed [facility] Influenza Virus Vaccine Quad ID 18-64 YRS Unknown Completed [facility] Pneumococcal Polysaccharide, PPSV23 (PNEUMOVAX) Unknown Completed [facility] TDAP (ADACEL) VACCINE Unknown Completed [facility] Twinrix (hep a/hep b) Unknown Completed [facility] Influenza Virus Vaccine Quad .5 mL IM 6+ MO (FLUZONE/FLULAVAL/F LUARIX) Unknown Completed [facility] Influenza Virus Vaccine Recomb Quad IM, Preserv and ABX Free 18-64 YRS Unknown Completed [facility] SARS-COV-2 COVID-19 PFIZER VACCINE Unknown Completed [facility] Influenza Virus Vaccine Quad IM, Preserv and ABX Free 6 MO-64 YRS (FLUCELVAX) Unknown Completed [facility] SARS-COV-2 COVID-19 VACCINE 12 YRS+, BIVALENT 0.5ML, IM, (MODERNA-BLUE TOP) Unknown Completed [facility] Pneumococcal 13 Conjugate, PCV13 (Prevnar 13) Unknown Completed [facility] Influenza Virus Vaccine Quad ID 18-64 YRS Unknown Completed [facility] Pneumococcal Polysaccharide, PPSV23 (PNEUMOVAX) Unknown Completed [facility] TDAP (ADACEL) VACCINE Unknown Completed [facility] Twinrix (hep a/hep b) Unknown Completed [facility] Influenza Virus Vaccine Quad .5 mL IM 6+ MO (FLUZONE/FLULAVAL/F LUARIX) Unknown Completed [facility] Influenza Virus Vaccine Recomb Quad IM, Preserv and ABX Free 18-64 YRS Unknown Completed [facility] SARS-COV-2 COVID-19 PFIZER VACCINE Unknown Completed [facility] Influenza Virus Vaccine Quad IM, Preserv and ABX Free 6 MO-64 YRS (FLUCELVAX) Unknown Completed [facility] SARS-COV-2 COVID-19 VACCINE 12 YRS+, BIVALENT 0.5ML, IM, (MODERNA-BLUE TOP) Unknown Completed [facility] Pneumococcal 13 Conjugate, PCV13 (Prevnar 13) Unknown Completed [facility] Influenza Virus Vaccine Quad ID 18-64 YRS Unknown Completed [facility] Pneumococcal Polysaccharide, PPSV23 (PNEUMOVAX) Unknown Completed [facility] TDAP (ADACEL) VACCINE Unknown Completed [facility] Twinrix (hep a/hep b) Unknown Completed [facility] Influenza Virus Vaccine Quad .5 mL IM 6+ MO (FLUZONE/FLULAVAL/F LUARIX) Unknown Completed [facility] Influenza Virus Vaccine Recomb Quad IM, Preserv and ABX Free 18-64 YRS Unknown Completed [facility] SARS-COV-2 COVID-19 PFIZER VACCINE Unknown Completed [facility] Influenza Virus Vaccine Quad IM, Preserv and ABX Free 6 MO-64 YRS (FLUCELVAX) Unknown Completed [facility] SARS-COV-2 COVID-19 VACCINE 12 YRS+, BIVALENT 0.5ML, IM, (MODERNA-BLUE TOP) Unknown Completed [facility] Pneumococcal 13 Conjugate, PCV13 (Prevnar 13) Unknown Completed [facility] Influenza Virus Vaccine Quad ID 18-64 YRS Unknown Completed [facility] Pneumococcal Polysaccharide, PPSV23 (PNEUMOVAX) Unknown Completed [facility] TDAP (ADACEL) VACCINE Unknown Completed [facility] Twinrix (hep a/hep b) Unknown Completed [facility] Influenza Virus Vaccine Quad .5 mL IM 6+ MO (FLUZONE/FLULAVAL/F LUARIX) Unknown Completed [facility] Influenza Virus Vaccine Recomb Quad IM, Preserv and ABX Free 18-64 YRS Unknown Completed [facility] SARS-COV-2 COVID-19 PFIZER VACCINE Unknown Completed [facility] Influenza Virus Vaccine Quad IM, Preserv and ABX Free 6 MO-64 YRS (FLUCELVAX) Unknown Completed [facility] SARS-COV-2 COVID-19 VACCINE 12 YRS+, BIVALENT 0.5ML, IM, (MODERNA-BLUE TOP) Unknown Completed [facility] Pneumococcal 13 Conjugate, PCV13 (Prevnar 13) Unknown Completed [facility] Influenza Virus Vaccine Quad ID 18-64 YRS Unknown Completed [facility] Pneumococcal Polysaccharide, PPSV23 (PNEUMOVAX) Unknown Completed [facility] TDAP (ADACEL) VACCINE Unknown Completed [facility] Twinrix (hep a/hep b) Unknown Completed [facility] Influenza Virus Vaccine Quad .5 mL IM 6+ MO (FLUZONE/FLULAVAL/F LUARIX) Unknown Completed [facility] Influenza Virus Vaccine Recomb Quad IM, Preserv and ABX Free 18-64 YRS Unknown Completed [facility] SARS-COV-2 COVID-19 PFIZER VACCINE Unknown Completed [facility] Influenza Virus Vaccine Quad IM, Preserv and ABX Free 6 MO-64 YRS (FLUCELVAX) Unknown Completed [facility] SARS-COV-2 COVID-19 VACCINE 12 YRS+, BIVALENT 0.5ML, IM, (MODERNA-BLUE TOP) Unknown Completed [facility] Pneumococcal 13 Conjugate, PCV13 (Prevnar 13) Unknown Completed [facility] Influenza Virus Vaccine Quad ID 18-64 YRS Unknown Completed [facility] Pneumococcal Polysaccharide, PPSV23 (PNEUMOVAX) Unknown Completed [facility] TDAP (ADACEL) VACCINE Unknown Completed [facility] Twinrix (hep a/hep b) Unknown Completed [facility] Influenza Virus Vaccine Quad .5 mL IM 6+ MO (FLUZONE/FLULAVAL/F LUARIX) Unknown Completed [facility] Influenza Virus Vaccine Recomb Quad IM, Preserv and ABX Free 18-64 YRS Unknown Completed [facility] SARS-COV-2 COVID-19 PFIZER VACCINE Unknown Completed [facility] Influenza Virus Vaccine Quad IM, Preserv and ABX Free 6 MO-64 YRS (FLUCELVAX) Unknown Completed [facility] SARS-COV-2 COVID-19 VACCINE 12 YRS+, BIVALENT 0.5ML, IM, (MODERNA-BLUE TOP) Unknown Completed [facility] Pneumococcal 13 Conjugate, PCV13 (Prevnar 13) Unknown Completed [facility] Influenza Virus Vaccine Quad ID 18-64 YRS Unknown Completed [facility] Pneumococcal Polysaccharide, PPSV23 (PNEUMOVAX) Unknown Completed [facility] TDAP (ADACEL) VACCINE Unknown Completed [facility] Twinrix (hep a/hep b) Unknown Completed [facility] Influenza Virus Vaccine Quad .5 mL IM 6+ MO (FLUZONE/FLULAVAL/F LUARIX) Unknown Completed [facility] Influenza Virus Vaccine Recomb Quad IM, Preserv and ABX Free 18-64 YRS Unknown Completed [facility] SARS-COV-2 COVID-19 PFIZER VACCINE Unknown Completed [facility] Influenza Virus Vaccine Quad IM, Preserv and ABX Free 6 MO-64 YRS (FLUCELVAX) Unknown Completed [facility] SARS-COV-2 COVID-19 VACCINE 12 YRS+, BIVALENT 0.5ML, IM, (MODERNA-BLUE TOP) Unknown Completed [facility] Pneumococcal 13 Conjugate, PCV13 (Prevnar 13) Unknown Completed [facility] Influenza Virus Vaccine Quad ID 18-64 YRS Unknown Completed [facility] Pneumococcal Polysaccharide, PPSV23 (PNEUMOVAX) Unknown Completed [facility] TDAP (ADACEL) VACCINE Unknown Completed [facility] Twinrix (hep a/hep b) Unknown Completed [facility] Influenza Virus Vaccine Quad .5 mL IM 6+ MO (FLUZONE/FLULAVAL/F LUARIX) Unknown Completed [facility] Influenza Virus Vaccine Recomb Quad IM, Preserv and ABX Free 18-64 YRS Unknown Completed [facility] SARS-COV-2 COVID-19 PFIZER VACCINE Unknown Completed [facility] Influenza Virus Vaccine Quad IM, Preserv and ABX Free 6 MO-64 YRS (FLUCELVAX) Unknown Completed [facility] SARS-COV-2 COVID-19 VACCINE 12 YRS+, BIVALENT 0.5ML, IM, (MODERNA-BLUE TOP) Unknown Completed [facility] Pneumococcal 13 Conjugate, PCV13 (Prevnar 13) Unknown Completed [facility] Influenza Virus Vaccine Quad ID 18-64 YRS Unknown Completed [facility] Pneumococcal Polysaccharide, PPSV23 (PNEUMOVAX) Unknown Completed [facility] TDAP (ADACEL) VACCINE Unknown Completed [facility] Twinrix (hep a/hep b) Unknown Completed [facility] Influenza Virus Vaccine Quad .5 mL IM 6+ MO (FLUZONE/FLULAVAL/F LUARIX) Unknown Completed [facility] Influenza Virus Vaccine Recomb Quad IM, Preserv and ABX Free 18-64 YRS Unknown Completed [facility] SARS-COV-2 COVID-19 PFIZER VACCINE Unknown Completed [facility] Influenza Virus Vaccine Quad IM, Preserv and ABX Free 6 MO-64 YRS (FLUCELVAX) Unknown Completed [facility] SARS-COV-2 COVID-19 VACCINE 12 YRS+, BIVALENT 0.5ML, IM, (MODERNA-BLUE TOP) Unknown Completed [facility] Pneumococcal 13 Conjugate, PCV13 (Prevnar 13) Unknown Completed [facility] Influenza Virus Vaccine Quad ID 18-64 YRS Unknown Completed [facility] Pneumococcal Polysaccharide, PPSV23 (PNEUMOVAX) Unknown Completed [facility] TDAP (ADACEL) VACCINE Unknown Completed [facility] Twinrix (hep a/hep b) Unknown Completed [facility] Influenza Virus Vaccine Quad .5 mL IM 6+ MO (FLUZONE/FLULAVAL/F LUARIX) Unknown Completed [facility] Influenza Virus Vaccine Recomb Quad IM, Preserv and ABX Free 18-64 YRS Unknown Completed [facility] SARS-COV-2 COVID-19 PFIZER VACCINE Unknown Completed [facility] Influenza Virus Vaccine Quad IM, Preserv and ABX Free 6 MO-64 YRS (FLUCELVAX) Unknown Completed [facility] SARS-COV-2 COVID-19 VACCINE 12 YRS+, BIVALENT 0.5ML, IM, (MODERNA-BLUE TOP) Unknown Completed [facility] Pneumococcal 13 Conjugate, PCV13 (Prevnar 13) Unknown Completed [facility] Influenza Virus Vaccine Quad ID 18-64 YRS Unknown Completed [facility] Pneumococcal Polysaccharide, PPSV23 (PNEUMOVAX) Unknown Completed [facility] TDAP (ADACEL) VACCINE Unknown Completed [facility] Twinrix (hep a/hep b) Unknown Completed [facility] Influenza Virus Vaccine Quad .5 mL IM 6+ MO (FLUZONE/FLULAVAL/F LUARIX) Unknown Completed [facility] Influenza Virus Vaccine Recomb Quad IM, Preserv and ABX Free 18-64 YRS Unknown Completed [facility] SARS-COV-2 COVID-19 PFIZER VACCINE Unknown Completed [facility] Influenza Virus Vaccine Quad IM, Preserv and ABX Free 6 MO-64 YRS (FLUCELVAX) Unknown Completed [facility] SARS-COV-2 COVID-19 VACCINE 12 YRS+, BIVALENT 0.5ML, IM, (MODERNA-BLUE TOP) Unknown Completed [facility] Pneumococcal 13 Conjugate, PCV13 (Prevnar 13) Unknown Completed [facility] Influenza Virus Vaccine Quad ID 18-64 YRS Unknown Completed [facility] Pneumococcal Polysaccharide, PPSV23 (PNEUMOVAX) Unknown Completed [facility] TDAP (ADACEL) VACCINE Unknown Completed [facility] Twinrix (hep a/hep b) Unknown Completed [facility] Influenza Virus Vaccine Quad .5 mL IM 6+ MO (FLUZONE/FLULAVAL/F LUARIX) Unknown Completed [facility] Influenza Virus Vaccine Recomb Quad IM, Preserv and ABX Free 18-64 YRS Unknown Completed [facility] SARS-COV-2 COVID-19 PFIZER VACCINE Unknown Completed [facility] Influenza Virus Vaccine Quad IM, Preserv and ABX Free 6 MO-64 YRS (FLUCELVAX) Unknown Completed [facility] SARS-COV-2 COVID-19 VACCINE 12 YRS+, BIVALENT 0.5ML, IM, (MODERNA-BLUE TOP) Unknown Completed [facility] Pneumococcal 13 Conjugate, PCV13 (Prevnar 13) Unknown Completed [facility] Influenza Virus Vaccine Quad ID 18-64 YRS Unknown Completed [facility] Pneumococcal Polysaccharide, PPSV23 (PNEUMOVAX) Unknown Completed [facility] TDAP (ADACEL) VACCINE Unknown Completed [facility] Twinrix (hep a/hep b) Unknown Completed [facility] Influenza Virus Vaccine Quad .5 mL IM 6+ MO (FLUZONE/FLULAVAL/F LUARIX) Unknown Completed [facility] Influenza Virus Vaccine Recomb Quad IM, Preserv and ABX Free 18-64 YRS Unknown Completed [facility] SARS-COV-2 COVID-19 PFIZER VACCINE Unknown Completed [facility] Influenza Virus Vaccine Quad IM, Preserv and ABX Free 6 MO-64 YRS (FLUCELVAX) Unknown Completed [facility] SARS-COV-2 COVID-19 VACCINE 12 YRS+, BIVALENT 0.5ML, IM, (MODERNA-BLUE TOP) Unknown Completed [facility] Pneumococcal 13 Conjugate, PCV13 (Prevnar 13) Unknown Completed [facility] Influenza Virus Vaccine Quad ID 18-64 YRS Unknown Completed [facility] Pneumococcal Polysaccharide, PPSV23 (PNEUMOVAX) Unknown Completed [facility] TDAP (ADACEL) VACCINE Unknown Completed [facility] Twinrix (hep a/hep b) Unknown Completed [facility] Influenza Virus Vaccine Quad .5 mL IM 6+ MO (FLUZONE/FLULAVAL/F LUARIX) Unknown Completed [facility] Influenza Virus Vaccine Recomb Quad IM, Preserv and ABX Free 18-64 YRS Unknown Completed [facility] SARS-COV-2 COVID-19 PFIZER VACCINE Unknown Completed [facility] Influenza Virus Vaccine Quad IM, Preserv and ABX Free 6 MO-64 YRS (FLUCELVAX) Unknown Completed [facility] SARS-COV-2 COVID-19 VACCINE 12 YRS+, BIVALENT 0.5ML, IM, (MODERNA-BLUE TOP) Unknown Completed [facility] Pneumococcal 13 Conjugate, PCV13 (Prevnar 13) Unknown Completed [facility] Influenza Virus Vaccine Quad ID 18-64 YRS Unknown Completed [facility] Pneumococcal Polysaccharide, PPSV23 (PNEUMOVAX) Unknown Completed [facility] TDAP (ADACEL) VACCINE Unknown Completed [facility] Twinrix (hep a/hep b) Unknown Completed [facility] Influenza Virus Vaccine Quad .5 mL IM 6+ MO (FLUZONE/FLULAVAL/F LUARIX) Unknown Completed [facility] Influenza Virus Vaccine Recomb Quad IM, Preserv and ABX Free 18-64 YRS Unknown Completed [facility] SARS-COV-2 COVID-19 PFIZER VACCINE Unknown Completed [facility] Influenza Virus Vaccine Quad IM, Preserv and ABX Free 6 MO-64 YRS (FLUCELVAX) Unknown Completed [facility] SARS-COV-2 COVID-19 VACCINE 12 YRS+, BIVALENT 0.5ML, IM, (MODERNA-BLUE TOP) Unknown Completed [facility] Pneumococcal 13 Conjugate, PCV13 (Prevnar 13) Unknown Completed [facility] Influenza Virus Vaccine Quad ID 18-64 YRS Unknown Completed [facility] Pneumococcal Polysaccharide, PPSV23 (PNEUMOVAX) Unknown Completed [facility] TDAP (ADACEL) VACCINE Unknown Completed [facility] Twinrix (hep a/hep b) Unknown Completed [facility] Influenza Virus Vaccine Quad .5 mL IM 6+ MO (FLUZONE/FLULAVAL/F LUARIX) Unknown Completed [facility] Influenza Virus Vaccine Recomb Quad IM, Preserv and ABX Free 18-64 YRS Unknown Completed [facility] SARS-COV-2 COVID-19 PFIZER VACCINE Unknown Completed [facility] Influenza Virus Vaccine Quad IM, Preserv and ABX Free 6 MO-64 YRS (FLUCELVAX) Unknown Completed [facility] SARS-COV-2 COVID-19 VACCINE 12 YRS+, BIVALENT 0.5ML, IM, (MODERNA-BLUE TOP) Unknown Completed [facility] Pneumococcal 13 Conjugate, PCV13 (Prevnar 13) Unknown Completed [facility] Influenza Virus Vaccine Quad ID 18-64 YRS Unknown Completed [facility] Pneumococcal Polysaccharide, PPSV23 (PNEUMOVAX) Unknown Completed [facility] TDAP (ADACEL) VACCINE Unknown Completed [facility] Twinrix (hep a/hep b) Unknown Completed [facility] Influenza Virus Vaccine Quad .5 mL IM 6+ MO (FLUZONE/FLULAVAL/F LUARIX) Unknown Completed [facility] Influenza Virus Vaccine Recomb Quad IM, Preserv and ABX Free 18-64 YRS Unknown Completed [facility] SARS-COV-2 COVID-19 PFIZER VACCINE Unknown Completed [facility] Influenza Virus Vaccine Quad IM, Preserv and ABX Free 6 MO-64 YRS (FLUCELVAX) Unknown Completed [facility] SARS-COV-2 COVID-19 VACCINE 12 YRS+, BIVALENT 0.5ML, IM, (MODERNA-BLUE TOP) Unknown Completed [facility] Pneumococcal 13 Conjugate, PCV13 (Prevnar 13) Unknown Completed [facility] Influenza Virus Vaccine Quad ID 18-64 YRS Unknown Completed [facility] Pneumococcal Polysaccharide, PPSV23 (PNEUMOVAX) Unknown Completed [facility] TDAP (ADACEL) VACCINE Unknown Completed [facility] Twinrix (hep a/hep b) Unknown Completed [facility] Influenza Virus Vaccine Quad .5 mL IM 6+ MO (FLUZONE/FLULAVAL/F LUARIX) Unknown Completed [facility] Influenza Virus Vaccine Recomb Quad IM, Preserv and ABX Free 18-64 YRS Unknown Completed [facility] SARS-COV-2 COVID-19 PFIZER VACCINE Unknown Completed [facility] Influenza Virus Vaccine Quad IM, Preserv and ABX Free 6 MO-64 YRS (FLUCELVAX) Unknown Completed [facility] SARS-COV-2 COVID-19 VACCINE 12 YRS+, BIVALENT 0.5ML, IM, (MODERNA-BLUE TOP) Unknown Completed [facility] Pneumococcal 13 Conjugate, PCV13 (Prevnar 13) Unknown Completed [facility] Influenza Virus Vaccine Quad ID 18-64 YRS Unknown Completed [facility] Pneumococcal Polysaccharide, PPSV23 (PNEUMOVAX) Unknown Completed [facility] TDAP (ADACEL) VACCINE Unknown Completed [facility] Twinrix (hep a/hep b) Unknown Completed [facility] Influenza Virus Vaccine Quad .5 mL IM 6+ MO (FLUZONE/FLULAVAL/F LUARIX) Unknown Completed [facility] Influenza Virus Vaccine Recomb Quad IM, Preserv and ABX Free 18-64 YRS Unknown Completed [facility] SARS-COV-2 COVID-19 PFIZER VACCINE Unknown Completed [facility] Influenza Virus Vaccine Quad IM, Preserv and ABX Free 6 MO-64 YRS (FLUCELVAX) Unknown Completed [facility] SARS-COV-2 COVID-19 VACCINE 12 YRS+, BIVALENT 0.5ML, IM, (MODERNA-BLUE TOP) Unknown [facility]pleted [facility] [facility] Pneumococcal 13 Conjugate, PCV13 (Prevnar 13) Unknown Completed [facility] Influenza Virus Vaccine Quad ID 18-64 YRS Unknown Completed [facility] Pneumococcal Polysaccharide, PPSV23 (PNEUMOVAX) Unknown Completed [facility] TDAP (ADACEL) VACCINE Unknown Completed [facility] Twinrix (hep a/hep b) Unknown Completed [facility] Influenza Virus Vaccine Quad .5 mL IM 6+ MO (FLUZONE/FLULAVAL/F LUARIX) Unknown Completed [facility] Influenza Virus Vaccine Recomb Quad IM, Preserv and ABX Free 18-64 YRS Unknown Completed [facility] SARS-COV-2 COVID-19 PFIZER VACCINE Unknown Completed [facility] Influenza Virus Vaccine Quad IM, Preserv and ABX Free 6 MO-64 YRS (FLUCELVAX) Unknown Completed [facility] SARS-COV-2 COVID-19 VACCINE 12 YRS+, BIVALENT 0.5ML, IM, (MODERNA-BLUE TOP) Unknown Completed [facility] Pneumococcal 13 Conjugate, PCV13 (Prevnar 13) Unknown Completed [facility] Influenza Virus Vaccine Quad ID 18-64 YRS Unknown Completed [facility] Pneumococcal Polysaccharide, PPSV23 (PNEUMOVAX) Unknown Completed [facility] TDAP (ADACEL) VACCINE Unknown Completed [facility] Twinrix (hep a/hep b) Unknown Completed [facility] Influenza Virus Vaccine Quad .5 mL IM 6+ MO (FLUZONE/FLULAVAL/F LUARIX) Unknown Completed [facility] Influenza Virus Vaccine Recomb Quad IM, Preserv and ABX Free 18-64 YRS Unknown Completed [facility] SARS-COV-2 COVID-19 PFIZER VACCINE Unknown Completed [facility] Influenza Virus Vaccine Quad IM, Preserv and ABX Free 6 MO-64 YRS (FLUCELVAX) Unknown Completed [facility] SARS-COV-2 COVID-19 VACCINE 12 YRS+, BIVALENT 0.5ML, IM, (MODERNA-BLUE TOP) Unknown Completed [facility] Pneumococcal 13 Conjugate, PCV13 (Prevnar 13) Unknown Completed [facility] Influenza Virus Vaccine Quad ID 18-64 YRS Unknown Completed [facility] Pneumococcal Polysaccharide, PPSV23 (PNEUMOVAX) Unknown Completed [facility] TDAP (ADACEL) VACCINE Unknown Completed [facility] Twinrix (hep a/hep b) Unknown Completed [facility] Influenza Virus Vaccine Quad .5 mL IM 6+ MO (FLUZONE/FLULAVAL/F LUARIX) Unknown Completed [facility] Influenza Virus Vaccine Recomb Quad IM, Preserv and ABX Free 18-64 YRS Unknown Completed [facility] SARS-COV-2 COVID-19 PFIZER VACCINE Unknown Completed [facility] Influenza Virus Vaccine Quad IM, Preserv and ABX Free 6 MO-64 YRS (FLUCELVAX) Unknown Completed [facility] SARS-COV-2 COVID-19 VACCINE 12 YRS+, BIVALENT 0.5ML, IM, (MODERNA-BLUE TOP) Unknown Completed [facility] Pneumococcal 13 Conjugate, PCV13 (Prevnar 13) Unknown Completed [facility] Influenza Virus Vaccine Quad ID 18-64 YRS Unknown Completed [facility] Pneumococcal Polysaccharide, PPSV23 (PNEUMOVAX) Unknown Completed [facility] TDAP (ADACEL) VACCINE Unknown Completed [facility] Twinrix (hep a/hep b) Unknown Completed [facility] Influenza Virus Vaccine Quad .5 mL IM 6+ MO (FLUZONE/FLULAVAL/F LUARIX) Unknown Completed [facility] Influenza Virus Vaccine Recomb Quad IM, Preserv and ABX Free 18-64 YRS Unknown Completed [facility] SARS-COV-2 COVID-19 PFIZER VACCINE Unknown Completed [facility] Influenza Virus Vaccine Quad IM, Preserv and ABX Free 6 MO-64 YRS (FLUCELVAX) Unknown Completed [facility] SARS-COV-2 COVID-19 VACCINE 12 YRS+, BIVALENT 0.5ML, IM, (MODERNA-BLUE TOP) Unknown Completed [facility] Pneumococcal 13 Conjugate, PCV13 (Prevnar 13) Unknown Completed [facility] Influenza Virus Vaccine Quad ID 18-64 YRS Unknown Completed [facility] Pneumococcal Polysaccharide, PPSV23 (PNEUMOVAX) Unknown Completed [facility] TDAP (ADACEL) VACCINE Unknown Completed [facility] Twinrix (hep a/hep b) Unknown Completed [facility] Influenza Virus Vaccine Quad .5 mL IM 6+ MO (FLUZONE/FLULAVAL/F LUARIX) Unknown Completed [facility] Influenza Virus Vaccine Recomb Quad IM, Preserv and ABX Free 18-64 YRS Unknown Completed [facility] SARS-COV-2 COVID-19 PFIZER VACCINE Unknown Completed [facility] Influenza Virus Vaccine Quad IM, Preserv and ABX Free 6 MO-64 YRS (FLUCELVAX) Unknown Completed [facility] SARS-COV-2 COVID-19 VACCINE 12 YRS+, BIVALENT 0.5ML, IM, (MODERNA-BLUE TOP) Unknown Completed [facility] Pneumococcal 13 Conjugate, PCV13 (Prevnar 13) Unknown Completed [facility] Influenza Virus Vaccine Quad ID 18-64 YRS Unknown Completed [facility] Pneumococcal Polysaccharide, PPSV23 (PNEUMOVAX) Unknown Completed [facility] TDAP (ADACEL) VACCINE Unknown Completed [facility] Twinrix (hep a/hep b) Unknown Completed [facility] Influenza Virus Vaccine Quad .5 mL IM 6+ MO (FLUZONE/FLULAVAL/F LUARIX) Unknown Completed [facility] Influenza Virus Vaccine Recomb Quad IM, Preserv and ABX Free 18-64 YRS Unknown Completed [facility] SARS-COV-2 COVID-19 PFIZER VACCINE Unknown Completed [facility] Influenza Virus Vaccine Quad IM, Preserv and ABX Free 6 MO-64 YRS (FLUCELVAX) Unknown Completed [facility] SARS-COV-2 COVID-19 VACCINE 12 YRS+, BIVALENT 0.5ML, IM, (MODERNA-BLUE TOP) Unknown Completed [facility] Pneumococcal 13 Conjugate, PCV13 (Prevnar 13) Unknown Completed [facility] Influenza Virus Vaccine Quad ID 18-64 YRS Unknown Completed [facility] Pneumococcal Polysaccharide, PPSV23 (PNEUMOVAX) Unknown Completed [facility] TDAP (ADACEL) VACCINE Unknown Completed [facility] Twinrix (hep a/hep b) Unknown Completed [facility] Influenza Virus Vaccine Quad .5 mL IM 6+ MO (FLUZONE/FLULAVAL/F LUARIX) Unknown Completed [facility] Influenza Virus Vaccine Recomb Quad IM, Preserv and ABX Free 18-64 YRS Unknown Completed [facility] SARS-COV-2 COVID-19 PFIZER VACCINE Unknown Completed [facility] Vital Signs Vital Name Observation Time Observation Value Comments Toney bae Systolic blood pressure 2023-05-03 15:03:00 139 mm[Hg] [facility] Diastolic blood pressure 2023-05-03 15:03:00 78 mm[Hg] [facility] Heart rate 2023-05-03 15:03:00 78 /min [facility] Body temperature 2023-05-03 15:03:00 36.44 Neli [facility] Respiratory rate 2023-05-03 15:03:00 18 /min [facility] Body height 2023-05-03 15:03:00 170.2 cm [facility] Body weight 2023-05-03 15:03:00 73.71 kg [facility] BMI 2023-05-03 15:03:00 25.45 kg/m2 [facility] Oxygen saturation in Arterial blood by Pulse oximetry 2023-05-03 15:03:00 100 /min [facility] Systolic blood pressure 2023-02-16 21:47:00 105 mm[Hg] [facility] Diastolic blood pressure 2023-02-16 21:47:00 64 mm[Hg] [facility] Heart rate 2023-02-16 21:47:00 78 /min [facility] Body temperature 2023-02-16 21:47:00 36.56 Neli [facility] Respiratory rate 2023-02-16 21:47:00 18 /min [facility] Body height 2023-02-16 21:47:00 170.2 cm [facility] Body weight 2023-02-16 21:47:00 76.204 kg [facility] BMI 2023-02-16 21:47:00 26.31 kg/m2 [facility] Oxygen saturation in Arterial blood by Pulse oximetry 2023-02-16 21:47:00 96 /min room air [facility] Systolic blood pressure 2022-06-20 15:30:00 132 mm[Hg] [facility] Diastolic blood pressure 2022-06-20 15:30:00 74 mm[Hg] [facility] Heart rate 2022-06-20 15:25:00 87 /min [facility] Body temperature 2022-06-20 15:25:00 36.17 Neli [facility] Respiratory rate 2022-06-20 15:25:00 18 /min [facility] Body height 2022-06-20 15:25:00 170.2 cm [facility] Body weight 2022-06-20 15:25:00 64.411 kg [facility] BMI 2022-06-20 15:25:00 22.24 kg/m2 [facility] Systolic blood pressure 2022-05-02 21:37:00 134 mm[Hg] [facility] Diastolic blood pressure 2022-05-02 21:37:00 85 mm[Hg] [facility] Heart rate 2022-05-02 21:36:00 86 /min [facility] Body temperature 2022-05-02 21:36:00 36.44 Neli [facility] Body height 2022-05-02 21:36:00 170.2 cm [facility] Body weight 2022-05-02 21:36:00 63.504 kg [facility] BMI 2022-05-02 21:36:00 21.93 kg/m2 [facility] Systolic blood pressure 2021-10-18 21:08:00 140 mm[Hg] [facility] Diastolic blood pressure 2021-10-18 21:08:00 87 mm[Hg] [facility] Heart rate 2021-10-18 21:08:00 84 /min [facility] Body temperature 2021-10-18 21:05:00 36.78 Neli [facility] Respiratory rate 2021-10-18 21:05:00 16 /min [facility] Body height 2021-10-18 21:05:00 167.6 cm [facility] Body weight 2021-10-18 21:05:00 64.093 kg [facility] BMI 2021-10-18 21:05:00 22.81 kg/m2 [facility] Procedures Procedure Date / Time Performed Performing Clinician Source AUTHORIZATION TO RELEASE PHI TO [facility] 2023-07-20 06:01:00 Doctor Unassigned, [place] [facility] MR LUMBAR SPINE WO CONTRAST 2023-06-22 17:11:18 Prudence Flores [facility] CONSENT/REFUSAL FOR DIAGNOSIS AND TREATMENT 2023-06-22 16:25:22 Doctor Unassigned, [place] [facility] ASSIGNMENT OF BENEFITS 2022-06-20 15:18:10 Docto r Unassigned, [place] [facility] FLU VACC (), 6 MO-64 YRS, .5ML, IM, QUAD (FLUCELVAX) 2022-05-02 22:01:31 Sobeida Pollard [facility] SARS-COV-2 COVID-19 VACCINE 18 YRS+, BIVALENT 0.5ML, IM (MODERNA BOOSTER) 2022-05-02 22:01:31 Sobeida Pollard [facility] AUTHORIZATION FOR RELEASE OF PHI 2022-01-15 05:01:00 Doctor Unassigned, [place] [facility] FLU VACC (), 2-64 YRS, .5ML, IM, QUAD (FLUCELVAX) 2021-10-18 23:00:52 Chris Linder [facility] AUTHORIZATION FOR RELEASE OF PHI 2021-09-21 06:01:00 Doctor Unassigned, [place] [facility] Encounters Start Date/Time End Date/Time Encounter Type Admission Type Attending Clinicians Care Facility Care Department Encounter ID Source 2023-01-11 13:08:33 Outpatient [id number] Epic 2022 10:48:23 Outpatient SHARON ALEXANDER [facility] [id number] [facility] 2024-06-10 15:00:00 2024-06-10 15:00:00 Outpatient CHRIS ALFONSO LUCAS [facility] [id number] [facility] 2024-06-03 10:15:00 2024-06-03 10:15:00 Outpatient Mia RAMOS IZABEL [facility] [id number] [facility] 2024-05-26 10:15:00 2024-05-26 10:15:00 Outpatient IZABEL GAFFNEY [facility] [id number] [facility] 2024-05-21 09:45:00 2024-05-21 09:45:00 Outpatient IZABEL GAFFNEY [facility] [id number] [facility] 2024-05-21 09:20:00 2024-05-21 09:20:00 Outpatient Mia LIM LAURAUte LIM DAV [facility] [id number] [facility] 2024-05-15 00:00:00 2024-05-15 14:29:54 Telephone Chris Linder [facility] 1.2.840.114 350.1.13.10 4.2.7.2.686 [id number] [facility] 2024-04-15 16:30:00 2024-04-15 16:30:00 Outpatient CHRIS ALFONSO LUCAS [facility] [id number] [facility] 2024-04-15 14:00:00 2024-04-15 14:00:00 Outpatient CHRIS ALFONSO LUCAS [facility] [id number] [facility] 2024-03-25 00:00:00 2024-04-07 13:30:39 Refill Chris Linder [facility] 1.2.840.114 350.1.13.10 4.2.7.2.686 [id number] [facility] 2024-04-01 15:00:00 2024-04-01 15:00:00 Outpatient CHRIS ALFONSO LUCAS [facility] [id number] [facility] 2024-03-27 00:00:00 2024-03-27 16:26:17 Chris Blandon [facility] 1.2.840.114 350.1.13.10 4.2.7.2.686 [id number] [facility] 2024-03-09 00:00:00 2024-03-11 14:03:56 Refill Chris Linder [facility] 1.2.840.114 350.1.13.10 4.2.7.2.686 [id number] [facility] 2024-02-27 00:00:00 2024-02-29 17:21:04 Refill Kailash [facility] 1.2.840.114 350.1.13.10 4.2.7.2.686 [id number] [facility] 2024-01-20 00:00:00 2024-01-22 15:39:19 Refjimbo Linder [facility] 1.2.840.114 350.1.13.10 4.2.7.2.686 [id number] [facility] 2024-01-15 10:40:00 2024-01-15 10:40:00 Outpatient PRUDENCE TATE [facility] [id number] [facility] 2023-12-24 00:00:00 2023-12-26 16:42:49 Refjimbo Linder [facility] 1.2.840.114 350.1.13.10 4.2.7.2.686 [id number] [facility] 2023-12-12 00:00:00 2023-12-12 00:00:00 Shazia Linder [facility] 1.114 350.1.13.10 4.2.7.2.686 [id number] [facility] 2023-11-30 16:00:00 2023-11-30 16:00:00 Outpatient R PRUDNECE FLORES [facility] [id number] [facility] 2023-11-27 15:25:17 2023-11-27 15:25:17 Outpatient SFA SFA 0416 Octavio Lan 2023-11-19 00:00:00 2023-11-19 00:00:00 Refill Prudence Flores [facility] 1.114 350.1.13.10 4.2.7.2.686 [id number] [facility] 2023-11-01 10:20:00 2023-11-01 10:20:00 Outpatient R PRUDENCE FLORES [facility] [id number] [facility] 2023-10-15 00:00:00 2023-10-15 00:00:00 Refill Prudence Flores [facility] 1.114 350.1.13.10 4.2.7.2.686 [id number] [facility] 2023-09-20 00:00:00 2023-09-20 00:00:00 Refill Chris Linder [facility] 1.114 350.1.13.10 4.2.7.2.686 [id number] [facility] 2023-09-20 00:00:00 2023-09-20 00:00:00 Refill Prudence Flores [facility] 1.84114 350.1.13.10 4.2.7.2.686 [id number] [facility] 2023-08-31 00:00:00 2023-08-31 00:00:00 Telephone Prudence Flores [place] [facility] 1.2.840.114 350.1.13.10 4.2.7.2.686 [id number] [facility] 2023-08-17 00:00:00 2023-08-17 00:00:00 Refill Prudence Flores [place] [facility] 1.840.114 350.1.13.10 4.2.7.2.686 [id number] [facility] 2023-07-20 00:00:00 2023-07-20 00:00:00 Orders Only Doctor Unassigned, [place] [facility] 1.840.114 350.1.13.10 4.2.7.2.686 [id number] [facility] 2023-07-09 00:00:00 2023-07-09 00:00:00 Telephone Prudence Flores [place] [facility]te [facility] 1.2840.114 350.1.13.10 4.2.7.2.686 [id number] [facility] 2023-06-22 10:25:30 2023-06-22 23:59:00 Outpatient R PRUDENCE FLORES [facility] [id number] [facility] 2023-06-22 10:25:30 2023-06-22 23:59:00 Hospital Encounter Prudence Folres [facility] 1.2840.114 350.1.13.10 4.2.7.2.686 [id number] [facility] 2023-06-22 00:00:2023-06-22 00:00:00 Orders Only Doctor Unassigned, [place] [facility] 1.2840.114 350.1.13.10 4.2.7.2.686 [id number] [facility] 2023-06-20 08:15:00 2023-06-20 08:15:00 Outpatient DANYELLE JOHNSON EMILY [facility] [id number] [facility] 2023-06-19 16:00:00 2023-06-19 16:00:00 Outpatient CHRIS ALFONSO LUCAS [facility] [id number] [facility] 2023-06-15 00:00:00 2023-06-15 00:00:00 Telephone Chris Linder [facility] 1.114 350.1.13.10 4.2.7.2.686 [id number] [facility] 2023-06-05 00:00:00 2023-06-05 00:00:00 Patient Secure Msg Doctor Unassigned, [place] [facility] 1.2.114 350.1.13.10 4.2.7.2.686 [id number] [facility] 2023-05-22 00:00:00 2023-05-22 00:00:00 Patient Secure Msg Doctor Unassigned, [place] [facility] 1.284.114 350.1.13.10 4.2.7.2.686 [id number] [facility] 2023-05-21 00:00:00 2023-05-21 00:00:00 Telephone Prudence Flores [facility] 1.840.114 350.1.13.10 4.2.7.2.686 [id number] [facility] 2023-05-15 00:00:00 2023-05-15 00:00:00 Telephone Prudence Flores [place] [facility] 1..840.114 350.1.13.10 4.2.7.2.686 [id number] [facility] 2023-05-04 12:04:03 2023-05-04 23:59:00 Outpatient R PRUDENCE FLORES [facility] [id number] [facility] 2023-05-04 12:04:03 2023-05-04 23:59:00 Hospital Encounter Prudence Flores [facility] 1..840.114 350.1.13.10 4.2.7.2.686 [id number] [facility] 2023-05-03 10:00:00 2023-05-03 10:35:50 Outpatient R PRUDENCE FLORES [facility] [id number] [facility] 2023-05-03 10:00:00 2023-05-03 10:35:50 Office Visit Prudence Flores [place] [facility] 1.2.840.114 350.1.13.10 4.2.7.2.686 [id number] [facility] 2023-05-02 00:00:00 2023-05-02 00:00:00 Telephone Chris Linder [facility] 1..840.114 350.1.13.10 4.2.7.2.686 [id number] [facility] 2023-04-02 11:40:20 2023-04-02 11:40:20 Outpatient SFA SFA 0821 Octavio Wes Riky 2023-04-02 00:00:00 2023-04-02 00:00:00 Outpatient R MCKENZIE ARCHER [facility] [id number] [facility] 2023-03-30 00:00:00 2023-03-30 00:00:00 Outpatient [id number] [facility] 2023-03-27 00:00:00 2023-03-27 00:00:00 Patient Secure Msg Doctor Unassigned, [place] [facility] 1..114 350.1.13.10 4.2.7.2.686 [id number] [facility] 2023-03-20 00:00:00 2023-03-20 00:00:00 Telephone Chris Linder [facility] 1..114 350.1.13.10 4.2.7.2.686 [id number] [facility] 2023-03-19 14:15:00 2023-03-19 14:30:00 Milling Machine Tender Visit Pob, Adc Lab Main Chris Linder [facility] 1.84.114 350.1.13.10 4.2.7.2.686 [id number] [facility] 2023-03-19 14:15:00 2023-03-19 14:15:00 Outpatient CHRIS ALFONSO LUCAS [facility] [id number] [facility] 2023-03-01 00:00:00 2023-03-01 00:00:00 Outpatient MCKENZIE BARAHONA [facility] [id number] [facility] 2023-02-16 16:00:00 2023-02-16 16:30:00 Office Visit Chris Linder [facility] 1..114 350.1.13.10 4.2.7.2.686 [id number] [facility] 2023-02-16 16:00:00 2023-02-16 16:00:00 Outpatient CHRIS ALFONSO LUCAS [facility] [id number] [facility] 2023-02-16 00:00:00 2023-02-16 00:00:00 Refjimbo Linder [facility] 1.2.840.114 350.1.13.10 4.2.7.2.686 [id number] [facility] 2023-02-15 00:00:00 2023-02-15 00:00:00 Outpatient [id number] [facility] 2023-02-07 00:00:00 2023-02-07 00:00:00 [facility] 1.2.840.114 350.1.13.10 4.2.7.2.686 [id number] [facility] 2023-02-02 00:00:00 2023-02-02 [facility]:00[facility] 1.2.840.114 350.1.13.10 4.2.7.2.686 [id number] [facility] 2023-01-17 00:00:00 2023-01-17 00:00[facility] 1.2.840.114 350.1.13.10 4.2.7.2.686 [id number] [facility] 2023-01-11 05:41:04 2023-01-11 23:59:00 Hospital [facility] Mckenzie Archer [facility] 1.2840.114 350.1.13.10 4.2.7.2.686 [id number] [facility] 2022-10-31 13:30:00 2022-10-31 13:30:00 Outpatient CHRIS ALFONSO LUCAS [facility] [id number] [facility] 2022-08-09 00:00:00 2022-08-09 00:00:00 Patient Secure Msg Doctor Unassigned, [place] [facility] 1.84.114 350.1.13.10 4.2.7.2.686 [id number] [facility] 2022-07-19 00:00:00 2022-07-19 00:00:00 Telephone Danyelle Christine [facility] 1..114 350.1.13.10 4.2.7.2.686 [id number] [facility] 2022-07-17 00:00:00 2022-07-17 00:00:00 Telephone Danyelle Christine [facility] 1.0.114 350.1.13.10 4.2.7.2.686 [id number] [facility] 2022-06-26 14:00:00 2022-06-26 14:00:00 Outpatient R MCKINLEY MONTERO [facility] [id number] [facility] 2022-06-26 14:00:00 2022-06-26 14:00:00 Outpatient R [facility] [id number] [facility] 2022-06-22 00:00:00 2022-06-22 00:00:00 Patient Secure Msg Doctor Unassigned, [place] [facility] 1..114 350.1.13.10 4.2.7.2.686 [id number] [facility] 2022-06-21 00:00:00 2022-06-21 00:00:00 Patient Secure Msg Doctor Unassigned, [place] [facility] 1.84.114 350.1.13.10 4.2.7.2.686 [id number] [facility] 2022-06-20 11:45:00 2022-06-20 12:00:00 [employer]illing [employer] Tender Visit [facility] Danyelle Christine [facility] 1.20.114 350.1.13.10 4.2.7.2.686 [id number] [facility] 2022-06-20 11:45:00 2022-06-20 11:45:00 Outpatient DANYELLE JOHNSON EMILY [facility] [id number] [facility] 2022-06-20 09:30:00 2022-06-20 10:10:31 Office Visit Danyelle Christine [facility] 1.20.114 350.1.13.10 4.2.7.2.686 [id number] [facility] 2022-06-20 00:00:00 2022-06-20 00:00:00 Orders Only Doctor Unassigned, [place] [facility] 1.2840.114 350.1.13.10 4.2.7.2.686 [id number] [facility] 2022-06-12 00:00:00 2022-06-12 00:00:00 Patient Secure Msg Doctor Unassigned, [place] [facility] 1.2.840.114 350.1.13.10 4.2.7.2.686 [id number] [facility] 2022-05-26 00:00:00 2022-05-26 00:00:00 Telephone Sharon Steiner [facility] 1.2840.114 350.1.13.10 4.2.7.2.686 [id number] [facility] 2022-05-15 00:00:00 2022-05-15 00:00:00 Outpatient CHRIS ALFONSO LUCAS [facility] [id number] [facility] 2022-05-09 14:30:00 2022-05-09 14:30:00 Outpatient ESTEVAN DURBIN [facility] [id number] [facility] 2022-05-09 00:00:00 2022-05-09 00:00:00 Letter (Out) Thierno Wade [facility] 1.2.840.114 350.1.13.10 4.2.7.2.686 [id number] [facility] 2022-05-05 00:00:00 2022-05-05 00:00:00 Letter (Out) Thierno Wade [facility] 1.840.114 350.1.13.10 4.2.7.2.686 [id number] [facility] 2022-05-03 00:00:00 2022-05-03 00:00:00 Telephone Chris Linder [facility] 1.2840.114 350.1.13.10 4.2.7.2.686 [id number] [facility] 2022-05-02 16:00:00 2022-05-02 16:30:00 Office Visit Chris Linder [facility] 1.2.840.114 350.1.13.10 4.2.7.2.686 [id number] [facility] 2022-05-02 16:00:00 2022-05-02 16:00:00 Outpatient CHRIS ALFONSO [facility] [id number] [facility] 2022-04-24 09:00:00 2022-04-24 09:00:00 Outpatient ESTEVAN DURBIN [facility] [id number] [facility] 2022-04-21 00:00:00 2022-04-21 00:00:00 Letter (Out) Theresa Hays [facility] 1.2.840.114 350.1.13.10 4.2.7.2.686 [id number] [facility] 2022-04-20 11:00:00 2022-04-20 11:00:00 Outpatient R DARIA HAYDEN [facility] [id number] [facility] 2022-04-18 14:30:00 2022-04-18 14:30:00 Outpatient R CHRIS LINDER CHRIS [facility] [id number] [facility] 2022-04-07 10:10:00 2022-04-07 10:10:00 Outpatient ELENA TINOCO KENDALL [facility] [id number] [facility] 2022-04-04 13:00:00 2022-04-04 13:00:00 Outpatient R CHRIS LINDER [facility] [id number] [facility] 2022-03-29 08:20:00 2022-03-29 08:20:00 Outpatient R RENNY CARDENAS [facility] [id number] [facility] 2022-03-06 10:30:00 2022-03-06 10:30:00 Outpatient R ESTEVAN SUN [facility] [id number] [facility] 2022-01-25 00:00:00 2022-01-25 00:00:00 Chris Carranza [facility] .840.114 350.1.13.10 4.2.7.2.686 [id number] [facility] 2022-01-23 00:00:00 2022-01-23 00:00:00 Chris Carranza [facility] 1..840.114 350.1.13.10 4.2.7.2.686 [id number] [facility] 2022-01-15 00:00:00 2022-01-15 00:00:00 Orders Only Doctor Unassigned, [place] [facility] 1.2.840.114 350.1.13.10 4.2.7.2.686 [id number] [facility] 2021-12-07 00:00:00 2021-12-07 00:00:00 Telephone ViverosMayra [facility] 1.2.840.114 350.1.13.10 4.2.7.2.686 [id number] [facility] 2021-10-20 00:00:00 2021-10-20 00:00:00 Telephone Kailash [facility] 1.2.840.114 350.1.13.10 4.2.7.2.686 [id number] [id number] [facility] 2021-10-18 16:45:00 2021-10-18 16:45:00 Milling Machine Tender Visit [facility] Kailash [facility] 1.2.840.114 350.1.13.10 4.2.7.2.686 [id number] [facility] 2021-10-18 15:30:00 2021-10-18 16:03:04 Office Visit Kailash [facility] 1.2.840.114 350.1.13.10 4.2.7.2.686 [id number] [facility] 2021-10-18 15:30:00 2021-10-18 16:03:04 Outpatient CHRIS ALFONSO LUCAS [facility] [id number] [facility] 2021-10-18 16:00:00 2021-10-18 16:00:00 Outpatient CHRIS ALFONSO LUCAS [facility] [id number] [facility] 2021-10-18 11:40:00 2021-10-18 11:40:00 Outpatient KEIKO EVERETT [facility] [id number] [facility] 2021-10-06 00:00:00 2021-10-06 00:00:00 Chris Carranza [facility] 1..840.114 350.1.13.10 4.2.7.2.686 [id number] [facility] 2021-09-22 10:30:00 2021-09-22 10:30:00 Outpatient Mia SUN [facility] [id number] [facility] 2021-09-22 10:30:00 2021-09-22 10:30:00 Outpatient Mia SUN [facility] [id number] [facility] 2021-09-21 00:00:00 2021-09-21 00:00:00 Orders Only Doctor Unassigned, [place] [facility] 1..840.114 350.1.13.10 4.2.7.2.686 [id number] [facility] 2021-08-22 00:00:00 2021-08-22 00:00:00 Outpatient CHRIS ALFONSO [facility] [id number] [facility] 2021-08-22 00:00:00 2021-08-22 00:00:00 Outpatient CHRIS ALFONSO [facility] [id number] [facility] 2021-07-12 15:30:00 2021-07-12 15:30:00 Outpatient R [facility] [id number] [facility] 2021-07-12 15:30:00 2021-07-12 15:30:00 Outpatient R [facility] [id number] [facility] 2021-07-01 00:00:00 2021-07-01 00:00:00 Chris Blandon [facility] 1..840.114 350.1.13.10 4.2.7.2.686 [id number] [facility] 2021-06-14 16:09:17 2021-06-14 16:24:17 Milling Machine Tender Visit [facility] Kailash [facility] 1.2.840.114 350.1.13.10 4.2.7.2.686 [id number] [facility] 2021-06-14 16:04:16 2021-06-14 16:14:16 Imm/Inj Visit Vaccine, Gal [facility] 1.2.840.114 350.1.13.10 4.2.7.2.686 [id number] [facility] 2021-06-14 15:14:56 2021-06-14 15:44:56 Office Visit Kailash, [facility] 1.2.840.114 350.1.13.10 4.2.7.2.686 [id number] [facility] 2021-06-14 15:30:00 2021-06-14 15:30:00 Outpatient CHRIS ALFONSO [facility] [id number] [facility] 2021-06-14 15:30:00 2021-06-14 15:30:00 Outpatient CHRIS ALFONSO [facility] [id number] [facility] 2021-05-28 00:00:00 2021-05-28 00:00:00 Refill Kailash [facility] 1.2.840.114 350.1.13.10 4.2.7.2.686 [id number] [facility] 2021-05-11 15:15:00 2021-05-11 15:15:00 Outpatient ESTEVAN DURBIN [facility] [id number] [facility] 2021-05-09 14:00:00 2021-05-09 14:00:00 Outpatient ESTEVAN DURBIN [facility] [id number] [facility] 2021-04-28 00:00:00 2021-04-28 00:00:00 Telephone Chris Linder [facility] 1.2.840.114 350.1.13.10 4.2.7.2.686 [id number] [facility] 2021-04-25 08:45:00 2021-04-25 08:45:00 Outpatient JERO HUANG [facility] [id number] [facility] 2021-04-19 00:00:00 2021-04-19 00:00:00 Telephone Chris Linder 1.2.840.1 [id number] 3.104.2.7 .[id number] .[id number] [facility] 2021-04-11 08:45:00 2021-04-11 08:45:00 Outpatient JERO HUANG [facility] [id number] [facility] 2021-03-16 08:45:00 2021-03-16 08:45:00 Outpatient MORRIS MARIE [facility] [id number] [facility] 2021-03-16 00:00:00 2021-03-16 00:00:00 Refill Chris Linder 1.2.840.1 13219.1.1 3.104.2.7 .[id number] [facility] 2020-12-27 14:30:00 2020-12-27 14:30:00 Outpatient MORRIS MARIE [facility] [id number] [facility] 2020-12-15 15:15:00 2020-12-15 15:15:00 Outpatient OCTAVIO WEBB [facility] [id number] [facility] 2020-12-07 15:07:29 2020-12-07 15:40:28 Milling Machine Tender Visit [facility] 1.2.840.114 350.1.13.10 4.2.7.2.686 [id number] [facility] 2020-12-07 14:03:43 2020-12-07 15:00:48 Office Visit Kailash, [facility] 1.2.840.114 350.1.13.10 4.2.7.2.686 [id number] [facility] 2020-12-07 14:03:43 2020-12-07 15:00:48 Office Visit Kailash, [facility] 1.2.840.114 350.1.13.10 4.2.7.2.686 [id number] 2020-12-07 14:30:00 2020-12-07 14:30:00 Outpatient CHRIS ALFONSO [facility] [id number] [facility] 2020-11-23 13:00:00 2020-11-23 13:00:00 Outpatient R CHRIS LINDER [facility] [id number] [facility] 2020-11-12 00:00:00 2020-11-12 00:00:00 Refill Kailash [facility] 1.2.840.114 350.1.13.10 4.2.7.2.686 [id number] [facility] 2020-09-27 13:45:00 2020-09-27 13:45:00 Outpatient MORRIS MARIE [facility] [id number] [facility] 2020-09-14 00:00:00 2020-09-14 00:00:00 Refill Kailash [facility] 1.2.840.114 350.1.13.10 4.2.7.2.686 [id number] [facility] 2020-09-13 00:00:00 2020-09-13 00:00:00 [facility] 1.2.840.114 350.1.13.10 4.2.7.2.686 [id number] [id number] [facility] 2020-09-07 13:30:00 2020-09-07 13:30:00 Outpatient R CHRIS LINDER LUCAS [facility] [id number] [facility] 2020-08-26 00:00:00 2020-08-26 00:00:00 Telephone Kailash [facility] 1.2.840.114 350.1.13.10 4.2.7.2.686 [id number] [facility] 2020-08-26 00:00:00 2020-08-26 00:00:00 Telephone [facility] 1.2.840.114 350.1.13.10 4.2.7.2.686 [id number] [facility] 2020-08-19 00:00:00 2020-08-19 00:00:[facility] 1.2.840.114 350.1.13.10 4.2.7.2.686 [id number] [facility] 2020-08-09 08:00:00 2020-08-09 08:00:00 Outpatient R SELFJERO [facility] [id number] [facility] 2020-08-09 08:00:00 2020-08-09 08:00:00 Outpatient R SELFJERO [facility] [id number] [facility] 2020-07-13 15:15:2020-07-13 14:49:18 Outpatient R CHRIS LINDER LUCAS [facility] [id number] [facility] 2020-07-13 14:39:02 2020-07-13 14:49:18 Milling Machine Tender Visit [facility] Chris Linder [facility] 1.2.840.114 350.1.13.10 4.2.7.2.686 [id number] [facility] 2020-07-13 13:51:20 2020-07-13 14:21:20 [facility] 1.2.840.114 350.1.13.10 4.2.7.2.686 [id number] [facility] 2020-07-13 14:00:00 2020-07-13 14:00:00 Outpatient R CHRIS LINDER [facility] [id number] [facility] 2020-07-12 08:00:00 2020-07-12 08:00:00 Outpatient R GONZÁLEZ JERO [facility] [id number] [facility] 2020-07-12 00:00:00 2020-07-12 00:00:00 Orders Only Doctor Unassigned, [place] 1.2.840.1 27724.1.1 3.104.2.7 .3.660131 .8 [id number] [facility] 2020-07-07 00:00:00 2020-07-07 00:00:00 Travel 1.2.840.1 23667.1.1 3.104.2.7 .3.092743 .8 1.2.840.114 350.1.13.10 4.2.7.3.698 [id number] [facility] 2020-06-29 15:00:00 2020-06-29 15:00:00 Outpatient R CHRIS LINDER [facility] [id number] [facility] 2020-06-24 00:00:00 2020-06-24 00:00:00 Chris Carranza 1.2.840.1 [id number] 3.104.2.7 .3.842048 .8 [id number] [facility] 2020-06-01 13:00:00 2020-06-01 13:00:00 Outpatient CHRIS ALFONSO [facility] [id number] [facility] 2020-05-14 09:15:00 2020-05-14 09:15:00 Outpatient Mia L[facility]ZYD [facility] [id number] [facility] 2020-05-06 13:45:00 2020-05-06 13:45:00 Outpatient Mia LOPEZYD [facility] [id number] [facility] 2020-03-20 00:00:00 2020-03-20 00:00:00 Chris Carranza [facility] 1..840.114 350.1.13.10 4.2.7.2.686 [id number] [facility] 2020-03-08 09:30:00 2020-03-08 09:30:00 Outpatient JERO HUANG [facility] [id number] [facility] 2020-02-24 15:00:00 2020-02-24 15:00:00 Outpatient CHRIS ALFONSO [facility] [id number] [facility] 2020-02-24 07:45:48 2020-02-24 08:15:48 Telemedici ne Visit Chris Linder [facility] 1..840.114 350.1.13.10 4.2.7.2.686 [id number] [facility] 2020-02-09 09:30:00 2020-02-09 09:30:00 Outpatient Mia [facility] [id number] [facility] 2020-01-26 11:00:00 2020-01-26 11:00:00 Outpatient R SUZANNE BADILLO [facility] [id number] [facility] 2020-01-23 00:00:00 2020-01-23 00:00:00 Telephone Chris Linder [facility] 1.840.114 350.1.13.10 4.2.7.2.686 [id number] [facility] 2019-12-23 15:00:00 2019-12-23 15:00:00 Outpatient R CHRIS LINDER LUCAS [facility] [id number] [facility] 2019-12-15 00:00:00 2019-12-15 00:00:00 Telephone Chris Linder [facility] 1.840.114 350.1.13.10 4.2.7.2.686 [id number] [facility] 2019-11-24 13:00:00 2019-11-24 13:00:00 Outpatient R SUZANNE BADILLO [facility] [id number] [facility] 2019-11-14 13:30:00 2019-11-14 13:30:00 Outpatient R SALLIE TINAJERO [facility] [id number] [facility] 2019-10-30 00:00:00 2019-10-30 00:00:00 Telephone Chris Linder 1..840.1 96617.1.1 3.104.2.7 .3.944441 .8 [id number] [facility] 2019-10-14 15:00:00 2019-10-14 15:00:00 Outpatient R CHRIS LINDER LUCAS [facility] [id number] [facility] 2019-08-25 00:00:00 2019-08-25 00:00:00 Case Management Faby Cabrera 1..840.1 [id number] 3.104.2.7 .3.300249 .8 [id number] [facility] 2019-06-30 16:00:00 2019-06-30 16:51:32 Outpatient SUZANNE TOLBERT [facility] [id number] [facility] 2019-06-30 00:00:00 2019-06-30 00:00:00 Orders Only Doctor Unassigned, [place] 1.2840.1 52991.1.1 3.104.2.7 .3.582815 .8 [id number] [facility] 2019-05-06 00:00:00 2019-05-06 00:00:00 Telephone Mckinley Solis 1.840.1 15129.1.1 3.104.2.7 .3.984517 .8 [id number] [facility] 2019-05-01 08:05:43 2019-05-01 09:14:20 Office Visit Yanelis May Res-Colpo/Kacy eep, [facility] 1.840.1 01318.1.1 3.104.2.7 .3.919341 .8 [id number] [facility] 2019-05-01 00:00:00 2019-05-01 00:00:00 Orders Only Doctor Unassigned, [place] 1.2840.1 99841.1.1 3.104.2.7 .3.912089 .8 [id number] [facility] 2019-04-29 00:00:00 2019-04-29 00:00:00 Telephone Best Morelos 1.2840.1 55801.1.1 3.104.2.7 .3.952474 .8 [id number] [facility] 2019-04-15 10:45:00 2019-04-15 10:45:00 Hospital Encounter Chris Linder 1.2840.1 00199.1.1 3.104.2.7 .3.215992 .8 [id number] [facility] 2019-04-15 00:00:00 2019-04-15 00:00:00 Outpatient R CHRIS LINDER LUCAS [facility] [id number] [facility] 2019-04-15 00:00:00 2019-04-15 00:00:00 Telephone [place] 1.2.840.1 78018.1.1 3.104.2.7 .3.873788 .8 [id number] [facility] 2019-04-15 00:00:00 2019-04-15 00:00:00 Refill Chris Linder 1.2.840.1 34370.1.1 3.104.2.7 .3.477508 .8 [id number] [facility] 2019-04-12 00:00:00 2019-04-12 00:00:00 Refill Chris Linder 1.2.840.1 72618.1.1 3.104.2.7 .3.035418 .8 [id number] [facility] 2019-03-28 00:00:00 2019-03-28 00:00:00 Telephone Best Morelos [facility] 1.2.840.114 350.1.13.10 4.2.7.2.686 [id number] [facility] 2019-01-13 00:00:00 2019-01-13 23:59:00 Outpatient THERESA DACOSTA [facility] [id number] [facility] Results Test Description Test Time Test Comments Results Result Co mments Source CULTURE, URINE 2023-04-05 11:33:03 SPECIMEN NUMBER: [id number] CULTURE, URINE SPECIMEN NUMBER: [id number] SPECIMEN COMMENT: URINE SOURCE: URINE REPORT STATUS: [...] TESTING PERFORMED AT [facility] [address] [place] [address] BAKERY SUPERVISOR: ROBBY YUNG M.D. [facility] NUMBER [id number] [facility] [place]. [id number] Notes Date/Time Note Provider Source 2024-05-15 14:21:06 Received 05/15/24 refill request for: Medication: Requested Prescriptions Pending Prescriptions Disp Refills cuznbcy-vjp-nusar-tenof ALAFEN (GENVOYA) [phone] mg per tablet 90 tablet 1 Sig: Take 1 tablet by mouth every morning. Please call [phone] to schedule a follow up appointment. Thank you Last filled: 12/12/23 Follow up scheduled for : 06/10/24 Last office visit: 02/16/23 Refilled approval sent to: Pharmacy: [facility]/pharmacy #[id number] [address] Refilled per ID Guidelines T [facility] 2024-05-15 13:07:50 Ermelinda Talbot is a 48 year old female Pt calling asking for a refill jbkdmno-wze-szyyk-tenof ALAFEN (GENVOYA) [phone] mg per tablet She is scheduled to see Dr. Linder on Jun 10 Pt has a cough, asking for cough medication [facility]/pharmacy #[id number] [facility] Rena Cotter [facility] 2024-03-27 16:26:05 Sent patient a Admittedly message. Joie Butcher RN [facility] 2024-03-27 14:18:48 Thank you, Dr. Linder. I tried reaching patient, no answer. Left message for patient to call me back. [facility] 2024-03-27 13:52:01 I have not seen the [...] mental health provider for further refills though. [facility] 2024-03-27 13:47:44 Sorry, I am unable to [...] if the medication is still even indicated. [facility] 2024-03-27 13:26:35 Please see patients pharmacy requesting a quantity change from 30 days to 90 days, and advise, thank you. Joie Hennessy LVN [facility] 2024-03-27 08:47:31 Dr. Linder, Please advise on refill request. Thank you REFILL Provider: Dr. Linder Patient's phone number: [phone] (home) Pharmacy: [facility] Medication: Tramadol Strength: 50 mg Directions: take 1 tablet po q 8 hours prn pain Quantity: #90 last written 01/22/24 Last filled: 01/28/24 for #90 Last office visit: 02/16/23 Next office visit: 04/01/24 [facility] 2024-03-27 08:33:02 Ermelinda Talbot is a 48 year old female Pt is requesting refill for TRAMADOL 50 mg tablet,pt scheduled 04-01-24 Thank you Vadim Hale [facility] 2024-03-11 08:53:46 Pt needs dc for refills Julian Reece MA [facility] 2024-02-29 14:39:59 Pt needs dc for refils Julian Reece MA [facility] 2024-01-21 09:33:37 REFILL (Requires review before approval) Provider: Chris Linder MD Patient's phone number: [phone] (home) [facility] [place] [address] Medication: traMADoL (ULTRAM) Strength: 50 mg tablet Directions: TAKE 1 TABLET BY MOUTH EVERY 8 HOURS NEEDED FOR PAIN INDICATIONS: CHRONIC PAIN Quantity: 90 Tablets with ZERO Refills Last filled: 12/26/2023 Last office visit: 02/16/2023 Next scheduled visit: No future visits are scheduled. Joie Hennessy [employer] [facility] 2023-12-26 15:29:13 REFILL (Requires review before approval) Provider: Chris Linder MD Patient's phone number: [phone] (home) [id number] Medication: traMADoL (ULTRAM) Strength: 50 mg tablet Directions: TAKE 1 TABLET BY MOUTH EVERY 8 HOURS NEEDED FOR PAIN INDICATIONS: CHRONIC PAIN Quantity: 90 Tablets with 2 Refills Last filled: Unknown Last office visit: 02/16/2023 Next scheduled visit: No future ID visits are scheduled. Joie Hennessy [facility] 2023-12-12 10:36:19 REFILL Provider: Dr. Linder Patient's phone number: [phone] (home) Pharmacy: [address] Medication: Genvoya Strength: [phone] mg Directions: take 1 tab po daily Quantity: #30 with 5 refills last written 02/16/23 Last filled: unknown Last office visit: 02/16/23 Next office visit: not scheduled. Reminder sent to patient to call office to schedule a follow up appointment. Refilled per ID protocol guidelines to pharmacy above. Joie Butcher RN [facility] 2023-11-19 11:51:44 Recent Visits Date Type Provider Dept 05/03/23 Office Visit Prudence Flores MD [facility] 06/20/22 Office Visit Danyelle Christine, [facility] Showing recent visits within past 540 days [...] (TESSALON PERLES) Class: eRX Katrina Rosa MA [facility] 2023-10-15 13:07:42 Images from the original note [...] Flores MD Last refill: 09/21/2023 Rx #: [id number] Provider Review Required [id number]/15/2023 11:25 AM Protocol Details This refill cannot be delegated Valid encounter within last 12 months To be filled at: [facility]/pharmacy #[id number] - [address] Recent Visits Date Type Provider Dept 05/03/23 Office Visit Prudence Flores MD [facility] 06/20/22 Office Visit Danyelle Christine, [facility] Showing recent visits within past 540 days with a meds authorizing provider and meeting all other requirements Future Appointments Date Type Provider Dept 11/01/23 Appointment Prudence Flores MD [facility] Showing future appointments within next 150 days with a meds authorizing provider and meeting all other requirements R UP Carmen Joy LVN [facility] 2023-09-20 14:02:56 Images from the original note [...] Flores MD Last refill: 05/03/2023 Rx #: [id number] Provider Review Required [id number]/20/2023 12:04 PM Protocol Details This refill cannot be delegated Valid encounter within last 12 months To be filled at: [facility]/pharmacy #[id number] Recent Visits Date Type Provider Dept 05/03/23 Office Visit Prudence Flores MD [facility] 06/20/22 Office Visit Danyelle Christine, [facility] Showing recent visits within past 540 days with a meds authorizing provider and meeting all other requirements Future Appointments Date Type Provider Dept 11/01/23 Appointment Prudence Flores MD [facility] Showing future appointments within next 150 days with a meds authorizing provider and meeting all other requirements R UP Trista Pierre MA [facility] 2023-09-20 13:42:22 [facility] website reviewed. No discrepancies in prescribing noted. ERx sent. Healthcare 2023-09-20 10:03:27 REFILL (Requires approval) Provider: Chris Linder MD Patient's phone number: [phone] (home) Pharmacy: [facility]/pharmacy #[id number] AT [facility] Medication: traMADoL (ULTRAM) Strength: 50 mg tablet Directions: TAKE 1 TABLET BY MOUTH EVERY 8 HOURS NEEDED FOR PAIN Indications: chronic pain Quantity: 90 Tablets with 2 Refills Last filled: Unknown Last office visit: 02/16/2023 Next scheduled visit: No future ID visits are scheduled. Hennessy LVN [facility] 2023-08-31 15:56:45 Patient requesting for MRI report be sent to [facility] Pain management dept and information was faxed to [phone] on 08/31/2023. Healthcare 2023-08-31 11:22:52 Ermelinda Talbot is a 48 year old female Pt is calling in reference to [facility] pain management wanting to more information about her Mri results states [facility] needing more information regarding the results Please advise Thank you Campa [facility] 2023-03-26 09:18:07 Formatting of this n ote might be different from the original. Paperwork in Dr. Linder's clinic folder. Joie Butcher RN [facility] 2023-03-20 15:00:31 Formatting of this n ote might be different from the original. Ermelinda Talbot is a 47 year old female patient calling needs status letter and blood work [facility] fax # [phone] Has 9:00AM appointment 03/21/23 Mckinley Wang [facility] 2023-03-19 14:15:00 Formatting of this n ote is different from the original. Images from the original note were not included. Venipuncture collection performed by clean technique on the left wrist. Total of 1 attempts were made. Slight pressure and a bandage/dressing were applied to the site(s). The patient experienced no complications. The following specimens were processed according to instructions and sent to [facility] laboratories per lab order on 03/19/2023: LT BLUE SST 2 RED LAV 2 PPT 1 DK GREEN (LiHep) 2 DK GREEN (SodH) CORNELL DK BLUE (K2) DK BLUE (S) ACD Blood Culture NIPT/NTD [facility] 2023-03-19 14:15:00 Formatting of this n ote might be different from the original. Pt was not fasting for blood draw will come back for Lipid Panel. [facility]
[2024-06-10] MEDS ORDERED: KETOROLAC 30 MG/ML INJ ONE (17:32)
[2024-06-10] MEDS ORDERED: ONDANSETRON 4 MG/2 ML VIAL ONE (17:32)
[2024-06-10] MEDS ORDERED: NA CHLORIDE 0.9% 1,000 ML ONE (17:33)
[2024-06-10 17:45] LABS: Absolute Basophils 0.1 K/uL (0-0.5); Absolute Eosinophils 0.2 K/uL (0-0.5); Absolute Lymphocytes (CBC) 2.6 K/uL (0.7-4.9); Absolute Monocytes 0.6 K/uL (0.1-1.3); Absolute Neutrophil 5.2 K/uL (1.8-8.0); Basophils % 0.9 % (0-1.3); Eosinophils % 1.9 % (0-4.4); Hematocrit 34.2 % (36.0-45.0); Hemoglobin 11.1 g/dL (12.0-15.0); Lymphocytes % 30.5 % (15.3-44.8); MCH 27.5 pg (27.0-35.0); MCHC 32.5 g/dL (32.0-36.0); MCV 84.5 fL (80-100); MPV 7.4 fL (7.6-11.3); Monocytes % 6.6 % (3.3-12.3); Neutrophils % 60.1 % (41.7-73.7); Nucleated Red Blood Cells % 0.1 % (0-0); Platelets 353 thou/uL (152-406); RBC Red Blood Cell Count 4.05 M/uL (3.86-4.86); Red Cell Distribution Width 14.9 % (12.1-15.2)
[2024-06-10 18:02] LABS: Albumin/Globulin Ratio 0.6 (1.1-1.8); Anion Gap 6.3 mEq/L (5.0-15.0); Bilirubin Total 0.2 mg/dL (0.2-1.0); Globulin 5.3 g/dL (2.3-3.5); Potassium 3.3 mEq/L (3.5-5.1); Protein, Total 8.3 g/dL (6.4-8.2)
[2024-06-10 18:54] LABS: Specific Gravity 1.027 (1.005-1.030); Sqamous Epithelial <5 /HPF (None Seen); Urine Bacteria <20 /HPF (<20); Urine Bilirubin NEGATIVE (Negative); Urine Blood Negative (Negative); Urine Clarity Turbid (Clear); Urine Color Yellow (Yellow); Urine Culture Reflex Order NOT NEEDED; Urine Glucose NEGATIVE (Negative); Urine Ketones NEGATIVE (Negative); Urine Microscopic Reflex YN ORDER UMIC; Urine Mucus Slight /HPF (None Seen); Urine Nitrite NEGATIVE (Negative); Urine Protein TRACE (Negative); Urine RBC <5 /HPF (None Seen); Urine Urobilinogen 2+ (Normal); Urine WBC <5 /HPF (<5)
--- NOTE | 2024-06-10 18:57 | ER ---
Nurse's Notes [facility] Name: Tianna Costello Age: 49 yrs Sex: Female : 1975 Arrival Date: 06/10/2024 Time: 16:40 Bed 6 Private MD: Diagnosis: Other cholelithiasis without obstruction Presentation: 06/10 17:12 Chief complaint: Patient states: I was here earlier and was seen. I had to leave to get jb4 my grandchildren. I was told I needed to come back. I am having leg pain and abdominal pain. Coronavirus screen: At this time, the client does not indicate any symptoms associated with coronavirus-19. Ebola Screen: No symptoms or risks identified at this time. Initial Sepsis Screen: Does the patient meet any 2 criteria? No. Patient's initial sepsis screen is negative. Does the patient have a suspected source of infection? No. Patient's initial sepsis screen is negative. Risk Assessment: Do you want to hurt yourself or someone else? Patient reports no desire to harm self or others. Onset of symptoms was June 10, 2024. Transition of care: patient was not received from another setting of care. 17:12 Method Of Arrival: Ambulatory jb4 17:12 Acuity: DAVID 3 jb4 Triage Assessment: 17:14 General: Appears in no apparent distress. comfortable, Behavior is calm, cooperative, jb4 appropriate for age. Pain: Complains of pain in abdomen, right leg and left leg Pain currently is 5 out of 10 on a pain scale. Pain began 1 week ago. Is continuous. GI: Abdomen is flat, non-distended, Reports lower abdominal pain, upper abdominal pain. 17:15 Cardiovascular: Patient's skin is warm and dry. Respiratory: Airway is patent jb4 Respiratory effort is even, unlabored, Respiratory pattern is regular, symmetrical. Historical: - Allergies: 17:14 PENICILLINS; jb4 - PMHx: 17:14 Anxiety; HIV positive; Asthma; jb4 - PSHx: 17:14 section; jb4 - Immunization history:: Adult Immunizations up to date. - Infectious Disease History:: Denies. - Social history:: Smoking status: Patient reports the use of cigarette tobacco products, 1/2 pp week. Screenin:43 [facility] ED Fall Risk Assessment (Adult) History of falling in the last 3 months, mb9 including since admission No falls in past 3 months (0 pts) Confusion or Disorientation No (0 pts) Intoxicated or Sedated No (0 pts) Impaired Gait No (0 pts) Mobility Assist Device Used No (0 pt) Altered Elimination No (0 pt) Score/Fall Risk Level 0 - 2 = Low Risk Oriented to surroundings, Maintained a safe environment, Educated pt \T\ family on fall prevention, incl call for assistance when getting out of bed, Assessed \T\ reinforced patient's understanding of fall precautions. Abuse screen: Denies threats or abuse. Nutritional screening: No deficits noted. Tuberculosis screening: No symptoms or risk factors identified. Assessment: 17:42 General: Appears in no apparent distress. Behavior is calm, cooperative. Pain: mb9 Complains of pain in abdomen Pain does not radiate. Pain currently is 6 out of 10 on a pain scale. Quality of pain is described as throbbing. Neuro: [place]an Agitation-Sedation Scale (RASS): 0 - Alert and Calm Level of Consciousness is awake, alert, obeys commands, Oriented to person, place, time, situation, Appropriate for age. Cardiovascular: Patient's skin is warm and dry. Respiratory: Airway is patent Respiratory effort is even, unlabored, Respiratory pattern is regular, symmetrical. GI: Abdomen is round non-distended, Bowel sounds present X 4 quads. Abd is soft Abdomen is tender to palpation in epigastric area and right upper quadrant Reports nausea, vomiting. : No signs and/or symptoms were reported regarding the genitourinary system. EENT: No signs and/or symptoms were reported regarding the EENT system. Derm: Skin is pink, warm \T\ dry. Musculoskeletal: Range of motion: intact in all extremities. Vital Signs: 17:12 BP 145 / 91; Pulse 89; Resp 16; Temp 99.3(O); Pulse Ox 100% on R/A; Height 5 ft. 7 in. jb4 (R); 18:00 BP 129 / 80; Pulse 83; Resp 16; Pulse Ox 98% on R/A; cm10 ED Course: 16:42 Patient arrived in ED. im 16:43 Homa López MD is Attending Physician. sp3 16:43 Lenore Mora FNP-C is [facility]. kb 17:14 Triage completed. jb4 17:14 Arm band placed on right wrist. jb4 17:38 Danica Bonilla, RN is Primary Nurse. mb9 17:41 Inserted saline lock: 20 gauge in right antecubital area, using aseptic technique. ls5 Blood collected. 17:44 Placed in gown. Bed in low position. Call light in reach. Side rails up X 1. Provided mb9 Education on: press call light if needing anything. Client placed on continuous cardiac and pulse oximetry monitoring. NIBP monitoring applied. 17:46 No provider procedures requiring assistance completed. mb9 18:56 IV discontinued, intact, bleeding controlled, No redness/swelling at site. Pressure mb9 dressing applied. Administered Medications: 17:39 Drug: Ondansetron IVP 4 mg IVP once; over 2 minutes Route: IVP; Site: right antecubital;mb9 18:56 Follow up: Response: No adverse reaction mb9 17:42 Drug: TORadol - Ketorolac IVP 15 mg IVP once Route: IVP; Site: right antecubital; mb9 18:56 Follow up: Response: No adverse reaction mb9 17:42 Drug: NS 0.9% IV 1000 ml IV at 1 bolus Per protocol; to be given as a bolus over 60 mb9 minutes Route: IV; Rate: 1 bolus; Site: right antecubital; 18:56 Follow up: Response: No adverse reaction; IV Status: Completed infusion mb9 Medication: 17:45 VIS not applicable for this client. mb9 Outcome: 18:57 Discharge ordered by . kb 19:00 Discharged to home ambulatory, mb9 19:00 Condition: stable 19:00 Discharge instructions given to patient, Instructed on discharge instructions, follow up and referral plans. Demonstrated understanding of instructions, follow-up care, 19:00 Patient left the ED. mb9 Signatures: Lenore Mora, PUTTY PATCHER-C PUTTY PATCHER-CkDavid Flores RN RN jb4 Homa López MD MD sp3 Danica Bonilla, RN RN mb9 Moo Snyder ls5 Anya Damon Clarissa, RN RN cm10
--- NOTE | 2024-06-10 18:57 | EDPHYS ---
Physician Documentation [facility] Name: Tianna Costello Age: 49 yrs Sex: Female : 1975 Arrival Date: 06/10/2024 Time: 16:40 Bed 6 Private MD: ED Physician Homa López HPI: 06/10 17:14 This 49 yrs old Black Female presents to ER via Ambulatory with complaints of Abdominal kb Pain, Nausea/Vomiting. 17:14 Pt is a 49 year old female who presents for RUQ pain that started a week ago with kb vomiting that started today. Pt reports history of gallbladder pain and this feels similar. Denies fever, diarrhea. . Historical: - Allergies: 17:14 PENICILLINS; jb4 - PMHx: 17:14 Anxiety; HIV positive; Asthma; jb4 - PSHx: 17:14 section; jb4 - Immunization history:: Adult Immunizations up to date. - Infectious Disease History:: Denies. - Social history:: Smoking status: Patient reports the use of cigarette tobacco products, 1/2 pp week. ROS: 17:14 Constitutional: As per HPI kb Exam: 17:14 Constitutional: This is a well developed, well nourished patient who is awake, alert, kb and in no acute distress. Head/Face: Normocephalic, atraumatic. ENT: Moist Mucous membranes Cardiovascular: Regular rate Respiratory: Respirations even and unlabored. No increased work of breathing. Talking in full sentences Abdomen/GI: Soft, non-tender. No distention Skin: Warm, dry with normal turgor. Normal color. MS/ Extremity: Pulses equal, no cyanosis. Neurovascular intact. Full, normal range of motion. Neuro: Awake and alert, GCS 15, oriented to person, place, time, and situation. Vital Signs: 17:12 BP 145 / 91; Pulse 89; Resp 16; Temp 99.3(O); Pulse Ox 100% on R/A; Height 5 ft. 7 in. jb4 (R); 18:00 BP 129 / 80; Pulse 83; Resp 16; Pulse Ox 98% on R/A; cm10 MDM: 16:44 Medical Screening Exam initiated kb 17:15 Data reviewed: vital signs, nurses notes. ED course: Pt was seen by me a few hours ago. kb Pt had to leave to last picker her grandchildren from daycare and is back to complete workup. US was completed during previous visit and revealed cholelithiasis without cholecystitis.. 18:56 Differential diagnosis: cholecystitis, Cholelithiasis, non-specific abd pain, kb pancreatitis. Counseling: I had a detailed discussion with the patient and/or guardian regarding the historical points, exam findings, and any diagnostic results supporting the discharge/admit diagnosis, lab results, radiology results, the need for outpatient follow up, a general surgeon, to return to the emergency department if symptoms worsen or persist or if there are any questions or concerns that arise at home. 06/10 16:44 Order name: CBC with Diff; Complete Time: 17:53 kb 06/10 16:44 Order name: CMP; Complete Time: 18:03 kb 06/10 16:44 Order name: Lipase; Complete Time: 18:03 kb 06/10 16:44 Order name: Urinalysis w/ reflexes; Complete Time: 18:55 kb 06/10 16:44 Order name: IV Saline Lock; Complete Time: 17:42 kb 06/10 16:44 Order name: Labs collected and sent; Complete Time: 17:42 kb Administered Medications: 17:39 Drug: Ondansetron IVP 4 mg IVP once; over 2 minutes Route: IVP; Site: right antecubital;mb9 18:56 Follow up: Response: No adverse reaction mb9 17:42 Drug: TORadol - Ketorolac IVP 15 mg IVP once Route: IVP; Site: right antecubital; mb9 18:56 Follow up: Response: No adverse reaction mb9 17:42 Drug: NS 0.9% IV 1000 ml IV at 1 bolus Per protocol; to be given as a bolus over 60 mb9 minutes Route: IV; Rate: 1 bolus; Site: right antecubital; 18:56 Follow up: Response: No adverse reaction; IV Status: Completed infusion mb9 Disposition Summary: 06/10/24 18:57 Discharge Ordered Notes: Location: Home kb Condition: Stable kb Diagnosis - Other cholelithiasis without obstruction kb Followup: kb - With: Emergency Department - When: As needed - Reason: Worsening of condition Followup: kb - With: Private Physician - When: 2 - 3 days - Reason: Recheck today's complaints, Continuance of care, Re-evaluation by your physician Discharge Instructions: - Discharge Summary Sheet kb - Cholelithiasis, [id number] kb Forms: - Medication Reconciliation Form kb - Antibiotic Education kb - Prescription Opioid Use kb - Patient Portal Instructions kb - Leadership Thank You Letter kb Signatures: Dispatcher [employer] EDLenore Navarrete, POULTRY FARM WORKER-C NERY-David Blancas RN RN jb4 Danica Bonilla RN RN mb9 Corrections: (The following items were deleted from the chart) 16:45 16:45 CBC+H.LAB.BRZ ordered. EDMS EDMS 16:45 16:45 COMPREHENSIVE METABOLIC PANEL+C.LAB.BRZ ordered. EDMS EDMS 16:45 16:45 LIPASE+C.LAB.BRZ ordered. EDMS EDMS 16:45 16:45 Urinalysis+U.LAB.BRZ ordered. EDMS EDMS
[2024-06-10 19:11] VITALS: TEMP 99.3
[2024-06-10 19:12] VITALS: BP 129/80; O2SAT 98
== END 2024-06-10 19:00 | disposition home or self-care (01) ==
LOC: ER 16:40
DX: K80.80 Other cholelithiasis without obstruction (principal); Z21 Asymptomatic human immunodeficiency virus [HIV] infection status; F17.210 Nicotine dependence, cigarettes, uncomplicated
CPT/HCPCS: 85025; 81001; 36415; 83690; 80053; J2405; J7030

== ENCOUNTER 2024-10-16 10:38 | Emergency (ER) | payer OTHER ==
--- OUTSIDE RECORDS SUMMARY | 2024-10-16 10:59 | XMS REPORT | Continuity of Care Document ---
Author Name Unknown Address [address] [facility] [address] [place] [address] [facility] [place] Address [address] [facility] [address] [place] [address] Care Team Providers Care Winder Helper Name Role Phone Sari Fuentes Primary Care Physician [phone] SHARON STEINER Attending Clinician Shruthi Mejia MA Attending Clinician UnavailErin Bucio LVN Attending Clinician UnavailCHRIS Chen Attending Clinician Unavailable CHRIS LINDER Attending Clinician Unavailable Chris Linder MD Attending Clinician [phone] IZABEL RAMOS Attending Clinician DAV German Attending Clinician Unavailable DAV LIM Attending Clinician Unavailable Chris Linder MD Attending Clinician [phone] PRUDENCE FLORES Attending Clinician Prudence Valentin MD Attending Clinician Doctor Unassigned, Angelica Attending Clinician DANYELLE Henson Attending Clinician DANYELLE Young Attending Clinician MCKENZIE Cleaning Attending Clinician Unavailable Pob, [facility] Attending Clinician Mckenzie Cleaning Attending Clinician MCKINLEY MONTERO Attending Clinician Unavail able [facility] Attending Clinician Unavailable TIFFANIE PICHARDO Attending Clinician Unavailable Sharon Steiner MD Attending Clinician [phone] ESTEVAN SUN Attending Clinician Unavailable Thierno Wade DO Attending Clinician [phone] [facility]ahla [facility], Theresa Aguilar Attending Clinician + DARIA HAYDEN Attending Clinician Unavailable ELENA LORA Attending Clinician UnavailELENA Calvo Attending Clinician Unavailabl RENNY Strauss Attending Clinician Unavailable Mayra Viveros MD Attending Clinician [phone] JEROME ONEIL Attending Clinician Unavailable KEIKO RODRÍGUEZ Attending Clinician Unavail able [place], Gal [facility] Attending Clinician Unavailable JERO CLAUDIO Attending Clinician Unavailable MORRIS LOPEZ Attending Clinician Unavailable OCTAVIO HUANG Attending Clinician Unavail able SUZANNE BADILLO Attending Clinician Unavailabl SALLIE Madrigal Attending Clinician Unavailable Rick PEÑA, Faby Lorenzana Attending Clinician Unav ailable Mckinley Solis CNM Attending Clinician [phone] May WHCNP, Yanelis Mccurdy Attending Clinician [phone] Res-Colpo/Leep, [facility] Attending Clinician Un available Best Morelos RN Attending Clinician Unavaila demetria Hall RN, Dang Woodruff Attending Clinician UnaTHERESA Rangel Attending Clinician Unavail able SHARON STEINER Admitting Clinician UnavailPRUDENCE Canales Admitting Clinician Antionette vailable Payers Payer Name Policy Type Policy Number Effective Date Expirati on Date Source [facility] DUAL COMPLETE-SNP 5 [id number] 2022 00:00:00 [facility] STAR 6 [id number] 2019 00:00:00 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 +hpv [facility] Well woman exam Well woman exam Disease Active 12-17 00:00: 00 [facility] Breast pain Breast pain Disease Active 12-17 00:00: 00 [facility] Obesity (BMI 30-39.9) Obesity (BMI 30-39.9) Disease Active 12-17 00:00: 00 [facility] AIDS AIDS Disease Active 01-19 00:00: 00 [facility] Pneumonia Pneumonia Disease Active 12-27 00:00: 00 [facility] Unspecifie d protein-ca kelsy malnutriti on Unspecifie d protein-ca kelsy malnutriti on Disease Resolve d 12-27 00:00: 00 2018-06-12 00:00:00 2018-06-12 08:51:32 [facility] Allergies, Adverse Reactions, Alerts Allergy Name Allergy Type Status Severity Reaction(s) Onset Date Inactive Date Treating Clinician Comments Source PENICILL INS Drug Class Active High Anaphylaxis 12-27 00:00: 00 [facility] Penicill ins Propensi ty to adverse reaction s to drug Active Unknown - See comments 12-27 00:00: 00 anaphylax is [facility] Penicill ins Propensi ty to adverse reaction s to drug Active Anaphylaxis 12-27 00:00: 00 anaphylax is [facility] Penicill ins Propensi ty to adverse reaction s to drug Active Anaphylaxis 12-27 00:00: 00 anaphylax is [facility] Social History Social Habit Start Date Stop Date Quantity Comments Source History SDOH Alcohol Frequency [facility] History SDOH [facility] Alcohol Binge [facility] Gender identity [facility] of Social function 2023-05-03 00:00:00 2023-05-03 00:00:00 [facility] Alcohol intake 2023-05-03 00:00:00 2023-05-03 00:00:00 Current non-drinker of alcohol (finding) [facility] Exposure to SARS-CoV-2 (event) 2022-06-10 00:00:00 2022-06-20 09:26:00 Not sure [facility] Alcoholic beverage intake 2019-02-04 00:00:00 2019-02-04 00:00:00 Current non-drinker of alcohol (finding) [facility] Cigarettes smoked current (pack per day) - Reported 2019-02-04 00:00:00 2019-02-04 00:00:00 [facility] Cigarette pack-years 2019-02-04 00:00:00 2019-02-04 00:00:00 [facility] Tobacco use and exposure 2019-02-04 00:00:00 2019-02-04 00:00:00 Former smokeless tobacco user [facility] Tobacco Comment 2019-02-04 00:00:00 2019-02-04 00:00:00 9-10 cigarettes [facility] Alcohol Comment 2016-12-27 00:00:00 2016-12-27 00:00:00 Occasional wine [facility] History of tobacco use 2016-09-29 00:00:00 User of smokeless tobacco [facility] Sex assigned at 1975 00:00:00 1975 00:00:00 [facility] Smoking Status Start Date Stop Date Source Smokes tobacco daily 2023-05-03 00:00:00 [facility] Occasional tobacco smoker 2019-02-04 00:00:00 [facility] Medications Ordered Medication Name Filled Medication Name Start Date Stop Date Current Medication? Ordering Clinician Indication Dosage Frequency Signature (SIG) Comments Components Source elviteg-cob -emtri-teno f ALAFEN (GENVOYA) 150-150-200 -10 mg per tablet 2023-08 003 00:00: 00 Yes [id number] 1{tbl} Take 1 tablet by mouth every morning. Please call to schedule a follow up brandyn wade Thank you [facility] ALBUTEROL 90 mcg/actuati on inhaler 03-11 00:00: 00 Yes [id number] 2{puff} TAKE 2 PUFFS BY MOUTH EVERY 6 HOURS NEEDED FOR WHEEZE OR FOR SHORTNESS OF BREATH [facility] ARIPIPRAZOL E 10 mg tablet 03-11 00:00: 00 Yes [id number] 10mg TAKE 1 TABLET BY MOUTH EVERYDAY AT BEDTIME [facility] TRAMADOL 50 mg tablet 01-21 00:00: 00 Yes [id number] TAKE 1 TABLET BY MOUTH EVERY 8 HOURS NEEDED FOR PAIN INDICATION S: CHRONIC PAIN [facility] traMADoL 50 mg tablet 12-25 00:00: 00 01-21 00:00 :00 No [id number] TAKE 1 TABLET BY MOUTH EVERY 8 HOURS NEEDED FOR PAIN INDICATION S: CHRONIC PAIN [facility] elviteg-cob -emtri-teno f ALAFEN (GENVOYA) 150-150-200 -10 mg per tablet 12-11 00:00: 00 05-15 00:00 :00 No [id number] 1{tbl} Take 1 tablet by mouth every morning. Please call to schedule a follow up brandyn wade Thank you [facility] BENZONATATE 100 mg capsule 4-09 00:00: 00 Yes [id number] TAKE 1 CAPSULE BY MOUTH EVERY 6 HOURS NEEDED FOR COUGH. [facility] BENZONATATE 100 mg capsule 0 3-05 00:00: 00 11-19 00:00 :00 No [id number] TAKE 1 CAPSULE BY MOUTH EVERY 6 HOURS NEEDED FOR COUGH. [facility] BENZONATATE 100 mg capsule 0 2-09 00:00: 00 Yes [id number] TAKE 1 CAPSULE BY MOUTH EVERY 6 HOURS NEEDED FOR COUGH. [facility] TRAMADOL 50 mg tablet 2-08 00:00: 00 12-25 00:00 :00 No [id number] TAKE 1 TABLET BY MOUTH EVERY 8 HOURS NEEDED FOR PAIN INDICATION S: CHRONIC PAIN [facility] QUEtiapine 50 mg tablet 2022-08- 00:00: 00 Yes TAKE 1 TABLET AT BEDTIME TAKE FOR 7 NIGHTS IF NO SIDE EFFECTS INCREASE TO THE 100 MG TABS. [facility] traMADoL 50 mg tablet 2022-08 00:00: 00 09-20 00:00 :00 No [id number] TAKE 1 TABLET BY MOUTH EVERY 8 HOURS NEEDED FOR PAIN Indication s: chronic pain [facility] azithromyci n 250 mg tablet 05-03 00:00: 00 11-25 00:00 :00 No [id number] Z-Blayne = 500mg day 1, then 250mg days 2 to 5. [facility] Guaifenesin 1,200 mg tablet 05-03 00:00: 00 11-25 00:00 :00 No [id number] 1200mg Take 1 tablet by mouth in the morning and 1 tablet in the evening. [facility] benzonatate (TESSALON PERLES) 100 mg capsule 05-03 00:00: 00 09-21 00:00 :00 No [id number] 100mg Take 1 capsule by mouth every 6 (six) hours as needed for Cough. [facility] prednisoLON E 5 mg tablet 05-03 00:00: 00 05-09 04:59 :00 No [id number] 20mg Take 4 tablets by mouth in the morning for 5 days. [facility] busPIRone 10 mg tablet 04-27 00:00: 00 Yes 10mg Take 1 tablet by mouth in the morning and 1 tablet in the evening. [facility] TAKE 1 CAPSULE BY MOUTH TWICE A DAY 04-02 00:00: 00 Yes Octavio Lan TAKE 1 CAPSULE TWICE DAILY. 04-02 00:00: 00 Yes 100 Octavio Lan ARIPIPRAZOL E 10 MG TABS 02-16 00:00: 00 Yes Octavio Lan TAKE 2 PUFFS BY MOUTH EVERY 6 HOURS NEEDED FOR WHEEZE OR FOR SHORTNESS OF BREATH 02-16 00:00: 00 Yes Octavio Harvey Riky TAKE 1 CAPSULE BY MOUTH EVERY 12 HOURS FOR 7 DAYS. 02-16 00:00: 00 Yes Octavio Lan traZODone 50 mg tablet 02-16 00:00: 00 Yes [id number] 50mg Take 1 tablet by mouth at bedtime. [facility] gabapentin 300 mg capsule 02-16 00:00: 00 Yes [id number] 300mg Take 1 capsule by mouth in the morning and 1 capsule at noon and 1 capsule in the evening. [facility] SERTraline 100 mg tablet 02-16 00:00: 00 Yes [id number] 100mg Take 1 tablet by mouth in the morning. [facility] ARIPiprazol e 10 mg tablet 02-16 00:00: 00 03-11 00:00 :00 No [id number] 10mg Take 1 tablet by mouth at bedtime. [facility] albuterol 90 mcg/actuati on inhaler 02-16 00:00: 00 03-11 00:00 :00 No [id number] 2{puff} Inhale 2 Puffs every 6 (six) hours as needed for Wheezing or Shortness of Breath. [facility] elviteg-cob -emtri-teno f ALAFEN (GENVOYA) 150-150-200 -10 mg per tablet 02-16 00:00: 00 12-11 00:00 :00 No [id number] 1{tbl} Take 1 tablet by mouth every morning. [facility] doxycycline hyclate 100 mg capsule 02-16 00:00: 00 02-24 04:59 :00 No [id number] 100mg Take 1 capsule by mouth every 12 (twelve) hours for 7 days. [facility] TRAMADOL HCL 50 MG TABS 02-14 00:00: 00 Yes Octavio Lan TAKE 1 TABLET BY MOUTH EVERY DAY IN THE MORNING 01-17 00:00: 00 Yes Octavio Lan TRAZODONE HYDROCHLORI DE 50 MG TABS 01-17 00:00: 00 Yes Octavio Lan traZODone 50 mg tablet 01-17 00:00: 00 02-16 00:00 :00 No [id number] 50mg Take 1 tablet by mouth at bedtime. [facility] elvite-cob -emtri-teno f ALAFEN (GENVOYA) 150-150-200 -10 mg per tablet 01-17 00:00: 00 02-16 00:00 :00 No [id number] 1{tbl} Take 1 tablet by mouth every morning. [facility] gabapentin 300 mg capsule 01-17 00:00: 00 02-16 00:00 :00 No [id number] 300mg Take 1 capsule by mouth in the morning and 1 capsule at noon and 1 capsule in the evening. [facility] SULFAMETHOX AZOLE/TRIME THOPRIM DS 800-160 MG TABS 2021-08 00:00: 00 Yes Octavio Wes Riky APPLY 1 APPLICATION 3 TIMES A DAY FOR 7 DAYS 2021-08 00:00: 00 Yes Octavio Wes Riky TAKE DIRECTED 2021-08 00:00: 00 Yes Octavio Lan peg-electro lyte soln 236-22.74-6 .74 -5.86 gram solution 2021-08 0 00:00: 00 05-02 00:00 :00 No Take as Directed [facility] APPLY 1 CENTIMETER RIBBON TO AFFECTED EYE(S) 2 TO 3 TIMES DAILY FOR 7 DAYS 05-06 00:00: 00 Yes Octavio Wes Riky GABAPENTIN 300 MG 05-02 00:00: 00 Yes Octavio Wes Lan traMADoL 50 mg tablet 05-02 00:00: 00 02-14 00:00 :00 No [id number] TAKE 1 TABLET BY MOUTH EVERY 8 HOURS NEEDED FOR PAIN Indication s: chronic pain [facility] bradvite-cob -emtri-teno f ALAFEN (GENVOYA) 150-150-200 -10 mg per tablet 05-02 00:00: 00 01-17 00:00 :00 No [id number] 1{tbl} Take 1 tablet by mouth every morning. [facility] gabapentin 300 mg capsule 05-02 00:00: 00 01-17 00:00 :00 No [id number] 300mg Take 1 capsule by mouth in the morning and 1 capsule at noon and 1 capsule in the evening. [facility] TAKE 1 TABLET BY MOUTH EVERY DAY 04-19 00:00: 00 Yes Octavio Lan TAKE 1 TABLET BY MOUTH EVERYDAY AT BEDTIME 04-19 00:00: 00 Yes Octavio Lan ARIPiprazol e 10 mg tablet 04-19 00:00: 00 02-16 00:00 :00 No 10mg Take 10 mg by mouth at bedtime. [facility] SERTraline 100 mg tablet 04-19 00:00: 00 02-16 00:00 :00 No 100mg Take 100 mg by mouth in the morning. [facility] traZODone 50 mg tablet 04-19 00:00: 00 01-17 00:00 :00 No 50mg Take 50 mg by mouth at bedtime. [facility] traMADoL 50 mg tablet 6-16 00:00: 00 05-02 00:00 :00 No [id number] TAKE 1 TABLET BY MOUTH EVERY 8 HOURS NEEDED FOR PAIN Indication s: chronic pain [facility] elviteg-cob -emtri-teno f ALAFEN (GENVOYA) 150-150-200 -10 mg per tablet -08 00:00: 00 05-02 00:00 :00 No [id number] 1{tbl} Take 1 tablet by mouth every morning. [facility] gabapentin 300 mg capsule 3-08 00:00: 00 05-02 00:00 :00 No [id number] 300mg Take 1 capsule by mouth 3 (three) times daily. [facility] TRAMADOL 50 mg tablet 2-24 00:00: 00 01-25 00:00 :00 No [id number] TAKE 1 TABLET BY MOUTH EVERY 8 HOURS NEEDED FOR PAIN [facility] ALAFEN (GENVOYA) 150-150-200 -10 mg per tablet 2020-08 00:00: 00 10-18 00:00 :00 No [id number] 1{tbl} Take 1 tablet by mouth every morning. [facility] gabapentin 300 mg capsule 2020-08 00:00: 00 10-18 00:00 :00 No [id number] 300mg Take 1 capsule by mouth 3 (three) times daily. [facility] Genvoya 150 mg-150 mg-200 mg-10 mg tablet 04-19 00:00: 00 Yes 1mg Octavio Lan sertraline 50 mg tablet 04-19 00:00: 00 Yes 1mg Octavio Lan tramadol 50 mg tablet 04-19 00:00: 00 Yes 1mg Octavio Lan gabapentin 300 mg capsule 04-19 00:00: 00 Yes 1mg Octavio Lan SERTraline 50 mg tablet 2019-08 00:00: 00 05-02 00:00 :00 No [id number] Take 1 tablet daily for 14 days. Then take 2 tablets daily. [facility] Immunizations Ordered Immunization Name Filled Immunization Name Date Status Comments Source Influenza Virus Vaccine Quad IM, Preserv and ABX Free 6 MO-64 YRS 2022-05-02 00:00:00 Completed [facility] SARS-COV-2 COVID-19 VACCINE 18 YRS+, BIVALENT 0.5ML, IM, (MODERNA BOOSTER) 2022-05-02 00:00:00 Completed [facility] Influenza Virus Vaccine Quad IM, Preserv and ABX Free 6 MO-64 YRS 2022-05-02 00:00:00 Completed [facility] SARS-COV-2 COVID-19 VACCINE 18 YRS+, BIVALENT 0.5ML, IM, (MODERNA BOOSTER) 2022-05-02 00:00:00 Completed [facility] Influenza Virus Vaccine Quad IM, Preserv and ABX Free 6 MO-64 YRS 2022-05-02 00:00:00 Completed [facility] SARS-COV-2 COVID-19 VACCINE 18 YRS+, BIVALENT 0.5ML, IM, (MODERNA BOOSTER) 2022-05-02 00:00:00 Completed [facility] Influenza Virus Vaccine Quad IM, Preserv and ABX Free 6 MO-64 YRS 2022-05-02 00:00:00 Completed [facility] SARS-COV-2 COVID-19 VACCINE 18 YRS+, BIVALENT 0.5ML, IM, (MODERNA BOOSTER) 2022-05-02 00:00:00 Completed [facility] Influenza Virus Vaccine Quad IM, Preserv and ABX Free 6 MO-64 YRS 2022-05-02 00:00:00 Completed [facility] SARS-COV-2 COVID-19 VACCINE 18 YRS+, BIVALENT 0.5ML, IM, (MODERNA BOOSTER) 2022-05-02 00:00:00 Completed [facility] Influenza Virus Vaccine Quad IM, Preserv and ABX Free 6 MO-64 YRS 2022-05-02 00:00:00 Completed [facility] SARS-COV-2 COVID-19 VACCINE 12 YRS+, BIVALENT 0.5ML, IM, (MODERNA BOOSTER) 2022-05-02 00:00:00 Completed [facility] Influenza Virus Vaccine Quad IM, Preserv and ABX Free 6 MO-64 YRS 2022-05-02 00:00:00 Completed [facility] SARS-COV-2 COVID-19 VACCINE 12 YRS+, BIVALENT 0.5ML, IM, (MODERNA BOOSTER) 2022-05-02 00:00:00 Completed [facility] Influenza Virus Vaccine Quad IM, Preserv and ABX Free 6 MO-64 YRS 2022-05-02 00:00:00 Completed [facility] SARS-COV-2 COVID-19 VACCINE 12 YRS+, BIVALENT 0.5ML, IM, (MODERNA BOOSTER) 2022-05-02 00:00:00 Completed [facility] Influenza Virus Vaccine Quad IM, Preserv and ABX Free 6 MO-64 YRS 2022-05-02 00:00:00 Completed [facility] SARS-COV-2 COVID-19 VACCINE 12 YRS+, BIVALENT 0.5ML, IM, (MODERNA BOOSTER) 2022-05-02 00:00:00 Completed [facility] Influenza Virus Vaccine Quad IM, Preserv and ABX Free 6 MO-64 YRS 2022-05-02 00:00:00 Completed [facility] SARS-COV-2 COVID-19 VACCINE 12 YRS+, BIVALENT 0.5ML, IM, (MODERNA BOOSTER) 2022-05-02 00:00:00 Completed [facility] Influenza Virus Vaccine Quad IM, Preserv and ABX Free 6 MO-64 YRS 2022-05-02 00:00:00 Completed [facility] SARS-COV-2 COVID-19 VACCINE 12 YRS+, BIVALENT 0.5ML, IM, (MODERNA-BLUE TOP) 2022-05-02 00:00:00 Completed [facility] Influenza Virus Vaccine Quad IM, Preserv and ABX Free 6 MO-64 YRS 2022-05-02 00:00:00 Completed [facility] SARS-COV-2 COVID-19 VACCINE 12 YRS+, BIVALENT 0.5ML, IM, (MODERNA-BLUE TOP) 2022-05-02 00:00:00 Completed [facility] Influenza Virus Vaccine Quad IM, Preserv and ABX Free 6 MO-64 YRS 2022-05-02 00:00:00 Completed [facility] SARS-COV-2 COVID-19 VACCINE 12 YRS+, BIVALENT 0.5ML, IM, (MODERNA-BLUE TOP) 2022-05-02 00:00:00 Completed [facility] Influenza Virus Vaccine Quad IM, Preserv and ABX Free 6 MO-64 YRS 2022-05-02 00:00:00 Completed [facility] SARS-COV-2 COVID-19 VACCINE 12 YRS+, BIVALENT 0.5ML, IM, (MODERNA-BLUE TOP) 2022-05-02 00:00:00 Completed [facility] Influenza Virus Vaccine Quad IM, Preserv and ABX Free 6 MO-64 YRS 2022-05-02 00:00:00 Completed [facility] SARS-COV-2 COVID-19 VACCINE 12 YRS+, BIVALENT 0.5ML, IM, (MODERNA-BLUE TOP) 2022-05-02 00:00:00 Completed [facility] Influenza Virus Vaccine Quad IM, Preserv and ABX Free 6 MO-64 YRS 2022-05-02 00:00:00 Completed [facility] SARS-COV-2 COVID-19 VACCINE 12 YRS+, BIVALENT 0.5ML, IM, (MODERNA-BLUE TOP) 2022-05-02 00:00:00 Completed [facility] Influenza Virus Vaccine Quad IM, Preserv and ABX Free 6 MO-64 YRS 2022-05-02 00:00:00 Completed [facility] SARS-COV-2 COVID-19 VACCINE 12 YRS+, BIVALENT 0.5ML, IM, (MODERNA-BLUE TOP) 2022-05-02 00:00:00 Completed [facility] Influenza Virus Vaccine Quad IM, Preserv and ABX Free 6 MO-64 YRS 2022-05-02 00:00:00 Completed [facility] SARS-COV-2 COVID-19 VACCINE 12 YRS+, BIVALENT 0.5ML, IM, (MODERNA-BLUE TOP) 2022-05-02 00:00:00 Completed [facility] Influenza Virus Vaccine Quad IM, Preserv and ABX Free 6 MO-64 YRS (FLUCELVAX) 2022-05-02 00:00:00 Completed [facility] SARS-COV-2 COVID-19 VACCINE 12 YRS+, BIVALENT 0.5ML, IM, (MODERNA-BLUE TOP) 2022-05-02 00:00:00 Completed Influenza Virus Vaccine Quad IM, Preserv and ABX Free 6 MO-64 YRS (FLUCELVAX) 2022-05-02 00:00:00 Completed [facility] SARS-COV-2 COVID-19 VACCINE 12 YRS+, BIVALENT 0.5ML, IM, (MODERNA-BLUE TOP) 2022-05-02 00:00:00 Completed SARS-COV-2 COVID-19 PFIZER VACCINE 2021-10-18 00:00:00 Completed [facility] Influenza Virus Vaccine Quad IM, Preserv and ABX Free 6 MO-64 YRS 2021-10-18 00:00:00 Completed [facility] SARS-COV-2 COVID-19 PFIZER VACCINE 2021-10-18 00:00:00 Completed [facility] Influenza Virus Vaccine Quad IM, Preserv and ABX Free 6 MO-64 YRS 2021-10-18 00:00:00 Completed [facility] SARS-COV-2 COVID-19 PFIZER VACCINE 2021-10-18 00:00:00 Completed [facility] Influenza Virus Vaccine Quad IM, Preserv and ABX Free 6 MO-64 YRS 2021-10-18 00:00:00 Completed [facility] SARS-COV-2 COVID-19 PFIZER VACCINE 2021-10-18 00:00:00 Completed [facility] Influenza Virus Vaccine Quad IM, Preserv and ABX Free 6 MO-64 YRS 2021-10-18 00:00:00 Completed [facility] SARS-COV-2 COVID-19 PFIZER VACCINE 2021-10-18 00:00:00 Completed [facility] Influenza Virus Vaccine Quad IM, Preserv and ABX Free 6 MO-64 YRS 2021-10-18 00:00:00 Completed [facility] SARS-COV-2 COVID-19 PFIZER VACCINE 2021-10-18 00:00:00 Completed [facility] Influenza Virus Vaccine Quad IM, Preserv and ABX Free 6 MO-64 YRS 2021-10-18 00:00:00 Completed [facility] SARS-COV-2 COVID-19 PFIZER VACCINE 2021-10-18 00:00:00 Completed [facility] Influenza Virus Vaccine Quad IM, Preserv and ABX Free 6 MO-64 2021-10-18 00:00:00 Completed [facility] SARS-COV-2 COVID-19 PFIZER VACCINE 2021-10-18 00:00:00 Completed [facility] Influenza Virus Vaccine Quad IM, Preserv and ABX Free 6 MO-64 YRS 2021-10-18 00:00:00 Completed [facility] SARS-COV-2 COVID-19 PFIZER VACCINE 2021-10-18 00:00:00 Completed [facility] Influenza Virus Vaccine Quad IM, Preserv and ABX Free 6 MO-64 YRS 2021-10-18 00:00:00 Completed [facility] SARS-COV-2 COVID-19 PFIZER VACCINE 2021-10-18 00:00:00 Completed [facility] Influenza Virus Vaccine Quad IM, Preserv and ABX Free 6 MO-64 YRS 2021-10-18 00:00:00 Completed [facility] SARS-COV-2 COVID-19 PFIZER VACCINE 2021-10-18 00:00:00 Completed [facility] Influenza Virus Vaccine Quad IM, Preserv and ABX Free 6 MO-64 YRS 2021-10-18 00:00:00 Completed [facility] SARS-COV-2 COVID-19 PFIZER VACCINE 2021-10-18 00:00:00 Completed [facility] Influenza Virus Vaccine Quad IM, Preserv and ABX Free 6 MO-64 YRS 2021-10-18 00:00:00 Completed [facility] SARS-COV-2 COVID-19 PFIZER VACCINE 2021-10-18 00:00:00 Completed [facility] Influenza Virus Vaccine Quad IM, Preserv and ABX Free 6 MO-64 YRS 2021-10-18 00:00:00 Completed [facility] SARS-COV-2 COVID-19 PFIZER VACCINE 2021-10-18 00:00:00 Completed [facility] Influenza Virus Vaccine Quad IM, Preserv and ABX Free 6 MO-64 YRS 2021-10-18 00:00:00 Completed [facility] SARS-COV-2 COVID-19 PFIZER VACCINE 2021-10-18 00:00:00 Completed [facility] Influenza Virus Vaccine Quad IM, Preserv and ABX Free 6 MO-64 2021-10-18 00:00:00 Completed [facility] SARS-COV-2 COVID-19 PFIZER VACCINE 2021-10-18 00:00:00 Completed [facility] Influenza Virus Vaccine Quad IM, Preserv and ABX Free 6 MO-64 YRS 2021-10-18 00:00:00 Completed [facility] SARS-COV-2 COVID-19 PFIZER VACCINE 2021-10-18 00:00:00 Completed [facility] Influenza Virus Vaccine Quad IM, Preserv and ABX Free 6 MO-64 YRS 2021-10-18 00:00:00 Completed [facility] SARS-COV-2 COVID-19 PFIZER VACCINE 2021-10-18 00:00:00 Completed [facility] Influenza Virus Vaccine Quad IM, Preserv and ABX Free 6 MO-64 YRS 2021-10-18 00:00:00 Completed [facility] SARS-COV-2 COVID-19 PFIZER VACCINE 2021-10-18 00:00:00 Completed [facility] Influenza Virus Vaccine Quad IM, Preserv and ABX Free 6 MO-64 YRS 2021-10-18 00:00:00 Completed [facility] SARS-COV-2 COVID-19 PFIZER VACCINE 2021-10-18 00:00:00 Completed [facility] Influenza Virus Vaccine Quad IM, Preserv and ABX Free 6 MO-64 YRS 2021-10-18 00:00:00 Completed [facility] SARS-COV-2 COVID-19 PFIZER VACCINE 2021-10-18 00:00:00 Completed [facility] Influenza Virus Vaccine Quad IM, Preserv and ABX Free 6 MO-64 YRS 2021-10-18 00:00:00 Completed [facility] SARS-COV-2 COVID-19 PFIZER VACCINE 2021-10-18 00:00:00 Completed [facility] Influenza Virus Vaccine Quad IM, Preserv and ABX Free 6 MO-64 YRS 2021-10-18 00:00:00 Completed [facility] SARS-COV-2 COVID-19 PFIZER VACCINE 2021-10-18 00:00:00 Completed [facility] Influenza Virus Vaccine Quad IM, Preserv and ABX Free 6 MO-64 YRS 2021-10-18 00:00:00 Completed [facility] SARS-COV-2 COVID-19 PFIZER VACCINE 2021-10-18 00:00:00 Completed [facility] Influenza Virus Vaccine Quad IM, Preserv and ABX Free 6 MO-64 YRS 2021-10-18 00:00:00 Completed [facility] SARS-COV-2 COVID-19 PFIZER VACCINE 2021-10-18 00:00:00 Completed [facility] Influenza Virus Vaccine Quad IM, Preserv and ABX Free 6 MO-64 YRS 2021-10-18 00:00:00 Completed [facility] SARS-COV-2 COVID-19 PFIZER VACCINE 2021-10-18 00:00:00 Completed Influenza Virus Vaccine Quad IM, Preserv and ABX Free 6 MO-64 YRS (FLUCELVAX) 2021-10-18 00:00:00 Completed SARS-COV-2 COVID-19 PFIZER VACCINE 2021-10-18 00:00:00 Completed Influenza Virus Vaccine Quad IM, Preserv and ABX Free 6 MO-64 YRS (FLUCELVAX) 2021-10-18 00:00:00 Completed SARS-COV-2 COVID-19 PFIZER VACCINE 2021-06-14 00:00:00 Completed [facility] SARS-COV-2 COVID-19 PFIZER VACCINE 2021-06-14 00:00:00 Completed [facility] SARS-COV-2 COVID-19 PFIZER VACCINE 2021-06-14 00:00:00 Completed [facility] SARS-COV-2 COVID-19 PFIZER VACCINE 2021-06-14 00:00:00 Completed [facility] SARS-COV-2 COVID-19 PFIZER VACCINE 2021-06-14 00:00:00 Completed [facility] SARS-COV-2 COVID-19 PFIZER VACCINE 2021-06-14 00:00:00 Completed [facility] SARS-COV-2 COVID-19 PFIZER VACCINE 2021-06-14 00:00:00 Completed [facility] SARS-COV-2 COVID-19 PFIZER VACCINE 2021-06-14 00:00:00 Completed [facility] SARS-COV-2 COVID-19 PFIZER VACCINE 2021-06-14 00:00:00 Completed [facility] SARS-COV-2 COVID-19 PFIZER VACCINE 2021-06-14 00:00:00 Completed [facility] SARS-COV-2 COVID-19 PFIZER VACCINE 2021-06-14 00:00:00 Completed [facility] SARS-COV-2 COVID-19 PFIZER VACCINE 2021-06-14 00:00:00 Completed [facility] SARS-COV-2 COVID-19 PFIZER VACCINE 2021-06-14 00:00:00 Completed [facility] SARS-COV-2 COVID-19 PFIZER VACCINE 2021-06-14 00:00:00 Completed [facility] SARS-COV-2 COVID-19 PFIZER VACCINE 2021-06-14 00:00:00 Completed [facility] SARS-COV-2 COVID-19 PFIZER VACCINE 2021-06-14 00:00:00 Completed [facility] SARS-COV-2 COVID-19 PFIZER VACCINE 2021-06-14 00:00:00 Completed [facility] SARS-COV-2 COVID-19 PFIZER VACCINE 2021-06-14 00:00:00 Completed [facility] SARS-COV-2 COVID-19 PFIZER VACCINE 2021-06-14 00:00:00 Completed [facility] SARS-COV-2 COVID-19 PFIZER VACCINE 2021-06-14 00:00:00 Completed [facility] SARS-COV-2 COVID-19 PFIZER VACCINE 2021-06-14 00:00:00 Completed [facility] SARS-COV-2 COVID-19 PFIZER VACCINE 2021-06-14 00:00:00 Completed [facility] SARS-COV-2 COVID-19 PFIZER VACCINE 2021-06-14 00:00:00 Completed [facility] SARS-COV-2 COVID-19 PFIZER VACCINE 2021-06-14 00:00:00 Completed [facility] SARS-COV-2 COVID-19 PFIZER VACCINE 2021-06-14 00:00:00 Completed [facility] SARS-COV-2 COVID-19 PFIZER VACCINE 2021-06-14 00:00:00 Completed [facility] SARS-COV-2 COVID-19 PFIZER VACCINE 2021-06-14 00:00:00 Completed SARS-COV-2 COVID-19 PFIZER VACCINE 2021-06-14 00:00:00 Completed Influenza Virus Vaccine Recomb Quad IM, Preserv and ABX Free 18-64 2020-07-13 00:00:00 Completed [facility] Influenza Virus Vaccine Recomb Quad IM, Preserv and ABX Free 18-64 2020-07-13 00:00:00 Completed [facility] Influenza Virus Vaccine Recomb Quad IM, Preserv and ABX Free 18-64 YRS 2020-07-13 00:00:00 Completed [facility] Influenza Virus Vaccine Recomb Quad IM, Preserv and ABX Free 18-64 2020-07-13 00:00:00 Completed [facility] Influenza Virus Vaccine Recomb Quad IM, Preserv and ABX Free 18-64 YRS 2020-07-13 00:00:00 Completed [facility] Influenza Virus Vaccine Recomb Quad IM, Preserv and ABX Free 18-64 YRS 2020-07-13 00:00:00 Completed [facility] Influenza Virus Vaccine Recomb Quad IM, Preserv and ABX Free 18-64 [facility] 2020-07-13 00:00:00 Completed [facility] Influenza Virus Vaccine Recomb Quad IM, Preserv and ABX Free 18-64 YRS 2020-07-13 00:00:00 Completed [facility] Influenza Virus Vaccine Recomb Quad IM, Preserv and ABX Free 1864 [facility] 2020-07-13 00:00:00 Completed [facility] Influenza Virus Vaccine Recomb Quad IM, Preserv and ABX Free 1864 [facility] 2020-07-13 00:00:00 Completed [facility] Influenza Virus Vaccine Recomb Quad IM, Preserv and ABX Free 1864 [facility] 2020-07-13 00:00:00 Completed [facility] Influenza Virus Vaccine Recomb Quad IM, Preserv and ABX Free [facility]64 [facility] 2020-07-13 00:00:00 Completed [facility] Influenza Virus Vaccine Recomb Quad IM, Preserv and ABX Free 1864 [facility] 2020-07-13 00:00:00 Completed [facility] Influenza Virus Vaccine Recomb Quad IM, Preserv and ABX Free 1864 [facility] 2020-07-13 00:00:00 Completed [facility] Influenza Virus Vaccine Recomb Quad IM, Preserv and ABX Free [facility]64 [facility] 2020-07-13 00:00:00 Completed [facility] Influenza Virus Vaccine Recomb Quad IM, Preserv and ABX Free 1864 [facility] 2020-07-13 00:00:00 Completed [facility] Influenza Virus Vaccine Recomb Quad IM, Preserv and ABX Free 1864 [facility] 2020-07-13 00:00:00 Completed [facility] Influenza Virus Vaccine Recomb Quad IM, Preserv and ABX Free 1864 [facility] 2020-07-13 00:00:00 Completed [facility] Influenza Virus Vaccine Recomb Quad IM, Preserv and ABX Free 1864 [facility] 2020-07-13 00:00:00 Completed [facility] Influenza Virus Vaccine Recomb Quad IM, Preserv and ABX Free 1864 [facility] 2020-07-13 00:00:00 Completed [facility] Influenza Virus Vaccine Recomb Quad IM, Preserv and ABX Free 1864 [facility] 2020-07-13 00:00:00 Completed [facility] Influenza Virus Vaccine Recomb Quad IM, Preserv and ABX Free 18-64 YRS 2020-07-13 00:00:00 Completed [facility] Influenza Virus Vaccine Recomb Quad IM, Preserv and ABX Free 18-64 YRS 2020-07-13 00:00:00 Completed [facility] Influenza Virus Vaccine Recomb Quad IM, Preserv and ABX Free 18-64 YRS 2020-07-13 00:00:00 Completed [facility] Influenza Virus Vaccine Recomb Quad IM, Preserv and ABX Free 18-64 YRS 2020-07-13 00:00:00 Completed [facility] Influenza Virus Vaccine Recomb Quad IM, Preserv and ABX Free 18-64 YRS 2020-07-13 00:00:00 Completed [facility] Influenza Virus Vaccine Recomb Quad IM, Preserv and ABX Free 18-64 YRS 2020-07-13 00:00:00 Completed [facility] Influenza Virus Vaccine Recomb Quad IM, Preserv and ABX Free 18-64 YRS 2020-07-13 00:00:00 Completed [facility] Twinrix (hep a/hep b) 2018-09-24 00:00:00 Completed [facility] Twinrix (hep a/hep b) 2018-09-24 00:00:00 Completed [facility] Twinrix (hep a/hep b) 2018-09-24 00:00:00 Completed [facility] Twinrix (hep a/hep b) 2018-09-24 00:00:00 Completed [facility] Twinrix (hep a/hep b) 2018-09-24 00:00:00 Completed [facility] Twinrix (hep a/hep b) 2018-09-24 00:00:00 Completed [facility] Twinrix (hep a/hep b) 2018-09-24 00:00:00 Completed [facility] Twinrix (hep a/hep b) 2018-09-24 00:00:00 Completed [facility] Twinrix (hep a/hep b) 2018-09-24 00:00:00 Completed [facility] Twinrix (hep a/hep b) 2018-09-24 00:00:00 Completed [facility] Twinrix (hep a/hep b) 2018-09-24 00:00:00 Completed [facility] Twinrix (hep a/hep b) 2018-09-24 00:00:00 Completed [facility] Twinrix (hep a/hep b) 2018-09-24 00:00:00 Completed [facility] Twinrix (hep a/hep b) 2018-09-24 00:00:00 Completed [facility] Twinrix (hep a/hep b) 2018-09-24 00:00:00 Completed [facility] Twinrix (hep a/hep b) 2018-09-24 00:00:00 Completed [facility] Twinrix (hep a/hep b) 2018-09-24 00:00:00 Completed [facility] Twinrix (hep a/hep b) 2018-09-24 00:00:00 Completed [facility] Twinrix (hep a/hep b) 2018-09-24 00:00:00 Completed [facility] Twinrix (hep a/hep b) 2018-09-24 00:00:00 Completed [facility] Twinrix (hep a/hep b) 2018-09-24 00:00:00 Completed [facility] Twinrix (hep a/hep b) 2018-09-24 00:00:00 Completed [facility] Twinrix (hep a/hep b) 2018-09-24 00:00:00 Completed [facility] Twinrix (hep a/hep b) 2018-09-24 00:00:00 Completed [facility] Twinrix (hep a/hep b) 2018-09-24 00:00:00 Completed [facility] Twinrix (hep a/hep b) 2018-09-24 00:00:00 Completed [facility] Twinrix (hep a/hep b) 2018-09-24 00:00:00 Completed Twinrix (hep a/hep b) 2018-09-24 00:00:00 Completed Influenza Virus Vaccine Quad .5 mL IM 6+ MO 2018-06-11 00:00:00 Completed [facility] Twinrix (hep a/hep b) 2018-06-11 00:00:00 Completed [facility] Influenza Virus Vaccine Quad .5 mL IM 6+ MO 2018-06-11 00:00:00 Completed [facility] Twinrix (hep a/hep b) 2018-06-11 00:00:00 Completed [facility] Influenza Virus Vaccine Quad .5 mL IM 6+ MO 2018-06-11 00:00:00 Completed [facility] Twinrix (hep a/hep b) 2018-06-11 00:00:00 Completed [facility] Influenza Virus Vaccine Quad .5 mL IM 6+ MO 2018-06-11 00:00:00 Completed [facility] Twinrix (hep a/hep b) 2018-06-11 00:00:00 Completed [facility] Influenza Virus Vaccine Quad .5 mL IM 6+ MO 2018-06-11 00:00:00 Completed [facility] Twinrix (hep a/hep b) 2018-06-11 00:00:00 Completed [facility] Influenza Virus Vaccine Quad .5 mL IM 6+ MO 2018-06-11 00:00:00 Completed [facility] Twinrix (hep a/hep b) 2018-06-11 00:00:00 Completed [facility] Influenza Virus Vaccine Quad .5 mL IM 6+ MO 2018-06-11 00:00:00 Completed [facility] Twinrix (hep a/hep b) 2018-06-11 00:00:00 Completed [facility] Influenza Virus Vaccine Quad .5 mL IM 6+ MO 2018-06-11 00:00:00 Completed [facility] Twinrix (hep a/hep b) 2018-06-11 00:00:00 Completed [facility] Influenza Virus Vaccine Quad .5 mL IM 6+ MO 2018-06-11 00:00:00 Completed [facility] Twinrix (hep a/hep b) 2018-06-11 00:00:00 Completed [facility] Influenza Virus Vaccine Quad .5 mL IM 6+ MO 2018-06-11 00:00:00 Completed [facility] Twinrix (hep a/hep b) 2018-06-11 00:00:00 Completed [facility] Influenza Virus Vaccine Quad .5 mL IM 6+ MO 2018-06-11 00:00:00 Completed [facility] Twinrix (hep a/hep b) 2018-06-11 00:00:00 Completed [facility] Influenza Virus Vaccine Quad .5 mL IM 6+ MO 2018-06-11 00:00:00 Completed [facility] Twinrix (hep a/hep b) 2018-06-11 00:00:00 Completed [facility] Influenza Virus Vaccine Quad .5 mL IM 6+ MO 2018-06-11 00:00:00 Completed [facility] Twinrix (hep a/hep b) 2018-06-11 00:00:00 Completed [facility] Influenza Virus Vaccine Quad .5 mL IM 6+ MO 2018-06-11 00:00:00 Completed [facility] Twinrix (hep a/hep b) 2018-06-11 00:00:00 Completed [facility] Influenza Virus Vaccine Quad .5 mL IM 6+ MO 2018-06-11 00:00:00 Completed [facility] Twinrix (hep a/hep b) 2018-06-11 00:00:00 Completed [facility] Influenza Virus Vaccine Quad .5 mL IM 6+ MO 2018-06-11 00:00:00 Completed [facility] Twinrix (hep a/hep b) 2018-06-11 00:00:00 Completed [facility] Influenza Virus Vaccine Quad .5 mL IM 6+ MO 2018-06-11 00:00:00 Completed [facility] Twinrix (hep a/hep b) 2018-06-11 00:00:00 Completed [facility] Influenza Virus Vaccine Quad .5 mL IM 6+ MO 2018-06-11 00:00:00 Completed [facility] Twinrix (hep a/hep b) 2018-06-11 00:00:00 Completed [facility] Influenza Virus Vaccine Quad .5 mL IM 6+ MO 2018-06-11 00:00:00 Completed [facility] Twinrix (hep a/hep b) 2018-06-11 00:00:00 Completed [facility] Influenza Virus Vaccine Quad .5 mL IM 6+ MO 2018-06-11 00:00:00 Completed [facility] Twinrix (hep a/hep b) 2018-06-11 00:00:00 Completed [facility] Influenza Virus Vaccine Quad .5 mL IM 6+ MO 2018-06-11 00:00:00 Completed [facility] Twinrix (hep a/hep b) 2018-06-11 00:00:00 Completed [facility] Influenza Virus Vaccine Quad .5 mL IM 6+ MO 2018-06-11 00:00:00 Completed [facility] Twinrix (hep a/hep b) 2018-06-11 00:00:00 Completed [facility] Influenza Virus Vaccine Quad .5 mL IM 6+ MO 2018-06-11 00:00:00 Completed [facility] Twinrix (hep a/hep b) 2018-06-11 00:00:00 Completed [facility] Influenza Virus Vaccine Quad .5 mL IM 6+ MO 2018-06-11 00:00:00 Completed [facility] Twinrix (hep a/hep b) 2018-06-11 00:00:00 Completed [facility] Influenza Virus Vaccine Quad .5 mL IM 6+ MO 2018-06-11 00:00:00 Completed [facility] Twinrix (hep a/hep b) 2018-06-11 00:00:00 Completed [facility] Influenza Virus Vaccine Quad .5 mL IM 6+ MO 2018-06-11 00:00:00 Completed [facility] Twinrix (hep a/hep b) 2018-06-11 00:00:00 Completed [facility] Influenza Virus Vaccine Quad .5 mL IM 6+ MO (FLUZONE/FLULAVAL/F LUARIX) 2018-06-11 00:00:00 Completed Twinrix (hep a/hep b) 2018-06-11 00:00:00 Completed Influenza Virus Vaccine Quad .5 mL IM 6+ MO (FLUZONE/FLULAVAL/F LUARIX) 2018-06-11 00:00:00 Completed Twinrix (hep a/hep b) 2018-06-11 00:00:00 Completed Pneumococcal Polysaccharide, PPSV23 (PNEUMOVAX) 2017-10-09 00:00:00 Completed [facility] TDAP (ADACEL) VACCINE 2017-10-09 00:00:00 Completed [facility] Twinrix (hep a/hep b) 2017-10-09 00:00:00 Completed [facility] Pneumococcal Polysaccharide, PPSV23 (PNEUMOVAX) 2017-10-09 00:00:00 Completed [facility] TDAP (ADACEL) VACCINE 2017-10-09 00:00:00 Completed [facility] Twinrix (hep a/hep b) 2017-10-09 00:00:00 Completed [facility] Pneumococcal Polysaccharide, PPSV23 (PNEUMOVAX) 2017-10-09 00:00:00 Completed [facility] TDAP (ADACEL) VACCINE 2017-10-09 00:00:00 Completed [facility] Twinrix (hep a/hep b) 2017-10-09 00:00:00 Completed [facility] Pneumococcal Polysaccharide, PPSV23 (PNEUMOVAX) 2017-10-09 00:00:00 Completed [facility] TDAP (ADACEL) VACCINE 2017-10-09 00:00:00 Completed [facility] Twinrix (hep a/hep b) 2017-10-09 00:00:00 Completed [facility] Pneumococcal Polysaccharide, PPSV23 (PNEUMOVAX) 2017-10-09 00:00:00 Completed [facility] TDAP (ADACEL) VACCINE 2017-10-09 00:00:00 Completed [facility] Twinrix (hep a/hep b) 2017-10-09 00:00:00 Completed [facility] Pneumococcal Polysaccharide, PPSV23 (PNEUMOVAX) 2017-10-09 00:00:00 Completed [facility] TDAP (ADACEL) VACCINE 2017-10-09 00:00:00 Completed [facility] Twinrix (hep a/hep b) 2017-10-09 00:00:00 Completed [facility] Pneumococcal Polysaccharide, PPSV23 (PNEUMOVAX) 2017-10-09 00:00:00 Completed [facility] TDAP (ADACEL) VACCINE 2017-10-09 00:00:00 Completed [facility] Twinrix (hep a/hep b) 2017-10-09 00:00:00 Completed [facility] Pneumococcal Polysaccharide, PPSV23 (PNEUMOVAX) 2017-10-09 00:00:00 Completed [facility] TDAP (ADACEL) VACCINE 2017-10-09 00:00:00 Completed [facility] Twinrix (hep a/hep b) 2017-10-09 00:00:00 Completed [facility] Pneumococcal Polysaccharide, PPSV23 (PNEUMOVAX) 2017-10-09 00:00:00 Completed [facility] TDAP (ADACEL) VACCINE 2017-10-09 00:00:00 Completed [facility] Twinrix (hep a/hep b) 2017-10-09 00:00:00 Completed [facility] Pneumococcal Polysaccharide, PPSV23 (PNEUMOVAX) 2017-10-09 00:00:00 Completed [facility] TDAP (ADACEL) VACCINE 2017-10-09 00:00:00 Completed [facility] Twinrix (hep a/hep b) 2017-10-09 00:00:00 Completed [facility] Pneumococcal Polysaccharide, PPSV23 (PNEUMOVAX) 2017-10-09 00:00:00 Completed [facility] TDAP (ADACEL) VACCINE 2017-10-09 00:00:00 Completed [facility] Twinrix (hep a/hep b) 2017-10-09 00:00:00 Completed [facility] Pneumococcal Polysaccharide, PPSV23 (PNEUMOVAX) 2017-10-09 00:00:00 Completed [facility] TDAP (ADACEL) VACCINE 2017-10-09 00:00:00 Completed [facility] Twinrix (hep a/hep b) 2017-10-09 00:00:00 Completed [facility] Pneumococcal Polysaccharide, PPSV23 (PNEUMOVAX) 2017-10-09 00:00:00 Completed [facility] TDAP (ADACEL) VACCINE 2017-10-09 00:00:00 Completed [facility] Twinrix (hep a/hep b) 2017-10-09 00:00:00 Completed [facility] Pneumococcal Polysaccharide, PPSV23 (PNEUMOVAX) 2017-10-09 00:00:00 Completed [facility] TDAP (ADACEL) VACCINE 2017-10-09 00:00:00 Completed [facility] Twinrix (hep a/hep b) 2017-10-09 00:00:00 Completed [facility] Pneumococcal Polysaccharide, PPSV23 (PNEUMOVAX) 2017-10-09 00:00:00 Completed [facility] TDAP (ADACEL) VACCINE 2017-10-09 00:00:00 Completed [facility] Twinrix (hep a/hep b) 2017-10-09 00:00:00 Completed [facility] Pneumococcal Polysaccharide, PPSV23 (PNEUMOVAX) 2017-10-09 00:00:00 Completed [facility] TDAP (ADACEL) VACCINE 2017-10-09 00:00:00 Completed [facility] Twinrix (hep a/hep b) 2017-10-09 00:00:00 Completed [facility] Pneumococcal Polysaccharide, PPSV23 (PNEUMOVAX) 2017-10-09 00:00:00 Completed [facility] TDAP (ADACEL) VACCINE 2017-10-09 00:00:00 Completed [facility] Twinrix (hep a/hep b) 2017-10-09 00:00:00 Completed [facility] Pneumococcal Polysaccharide, PPSV23 (PNEUMOVAX) 2017-10-09 00:00:00 Completed [facility] TDAP (ADACEL) VACCINE 2017-10-09 00:00:00 Completed [facility] Twinrix (hep a/hep b) 2017-10-09 00:00:00 Completed [facility] Pneumococcal Polysaccharide, PPSV23 (PNEUMOVAX) 2017-10-09 00:00:00 Completed [facility] TDAP (ADACEL) VACCINE 2017-10-09 00:00:00 Completed [facility] Twinrix (hep a/hep b) 2017-10-09 00:00:00 Completed [facility] Pneumococcal Polysaccharide, PPSV23 (PNEUMOVAX) 2017-10-09 00:00:00 Completed [facility] [facility] TDAP (ADACEL) VACCINE 2017-10-09 00:00:00 Completed [facility] Twinrix (hep a/hep b) 2017-10-09 00:00:00 Completed [facility] Pneumococcal Polysaccharide, PPSV23 (PNEUMOVAX) 2017-10-09 00:00:00 Completed [facility] TDAP (ADACEL) VACCINE 2017-10-09 00:00:00 Completed [facility] Twinrix (hep a/hep b) 2017-10-09 00:00:00 Completed [facility] Pneumococcal Polysaccharide, PPSV23 (PNEUMOVAX) 2017-10-09 00:00:00 Completed [facility] TDAP (ADACEL) VACCINE 2017-10-09 00:00:00 Completed [facility] Twinrix (hep a/hep b) 2017-10-09 00:00:00 Completed [facility] Pneumococcal Polysaccharide, PPSV23 (PNEUMOVAX) 2017-10-09 00:00:00 Completed [facility] TDAP (ADACEL) VACCINE 2017-10-09 00:00:00 Completed [facility] Twinrix (hep a/hep b) 2017-10-09 00:00:00 Completed [facility] Pneumococcal Polysaccharide, PPSV23 (PNEUMOVAX) 2017-10-09 00:00:00 Completed [facility] TDAP (ADACEL) VACCINE 2017-10-09 00:00:00 Completed [facility] Twinrix (hep a/hep b) 2017-10-09 00:00:00 Completed [facility] Pneumococcal Polysaccharide, PPSV23 (PNEUMOVAX) 2017-10-09 00:00:00 Completed [facility] TDAP (ADACEL) VACCINE 2017-10-09 00:00:00 Completed [facility] Twinrix (hep a/hep b) 2017-10-09 00:00:00 Completed [facility] Pneumococcal Polysaccharide, PPSV23 (PNEUMOVAX) 2017-10-09 00:00:00 Completed [facility] TDAP (ADACEL) VACCINE 2017-10-09 00:00:00 Completed [facility] Twinrix (hep a/hep b) 2017-10-09 00:00:00 Completed [facility] Pneumococcal Polysaccharide, PPSV23 (PNEUMOVAX) 2017-10-09 00:00:00 Completed [facility] TDAP (ADACEL) VACCINE 2017-10-09 00:00:00 Completed Twinrix (hep a/hep b) 2017-10-09 00:00:00 Completed Pneumococcal Polysaccharide, PPSV23 (PNEUMOVAX) 2017-10-09 00:00:00 Completed [facility] TDAP (ADACEL) VACCINE 2017-10-09 00:00:00 Completed Twinrix (hep a/hep b) 2017-10-09 00:00:00 Completed Pneumococcal 13 Conjugate, PCV13 (Prevnar 13) 2017-06-05 00:00:00 Completed [facility] Influenza Virus Vaccine Quad ID 18-64 YRS 2017-06-05 00:00:00 Completed [facility] Pneumococcal 13 Conjugate, PCV13 (Prevnar 13) 2017-06-05 00:00:00 Completed [facility] Influenza Virus Vaccine Quad ID 18-64 YRS 2017-06-05 00:00:00 Completed [facility] Pneumococcal 13 Conjugate, PCV13 (Prevnar 13) 2017-06-05 00:00:00 Completed [facility] Influenza Virus Vaccine Quad ID 18-64 YRS 2017-06-05 00:00:00 Completed Pneumococcal 13 Conjugate, PCV13 (Prevnar 13) 2017-06-05 00:00:00 Completed [facility] Influenza Virus Vaccine Quad ID 18-64 YRS 2017-06-05 00:00:00 Completed Pneumococcal 13 Conjugate, PCV13 (Prevnar 13) 2017-06-05 00:00:00 Completed [facility] Influenza Virus Vaccine Quad ID 18-64 YRS 2017-06-05 00:00:00 Completed [facility] Pneumococcal 13 Conjugate, PCV13 (Prevnar 13) 2017-06-05 00:00:00 Completed [facility] Influenza Virus Vaccine Quad ID 18-64 YRS 2017-06-05 00:00:00 Completed [facility] Pneumococcal 13 Conjugate, PCV13 (Prevnar 13) 2017-06-05 00:00:00 Completed [facility] Influenza Virus Vaccine Quad ID 18-64 YRS 2017-06-05 00:00:00 Completed [facility] Pneumococcal 13 Conjugate, PCV13 (Prevnar 13) 2017-06-05 00:00:00 Completed [facility] Influenza Virus Vaccine Quad ID 18-64 YRS 2017-06-05 00:00:00 Completed [facility] Pneumococcal 13 Conjugate, PCV13 (Prevnar 13) 2017-06-05 00:00:00 Completed [facility] Influenza Virus Vaccine Quad ID 18-64 YRS 2017-06-05 00:00:00 Completed [facility] Pneumococcal 13 Conjugate, PCV13 (Prevnar 13) 2017-06-05 00:00:00 Completed [facility] Influenza Virus Vaccine Quad ID 18-64 YRS 2017-06-05 00:00:00 Completed [facility] Pneumococcal 13 Conjugate, PCV13 (Prevnar 13) 2017-06-05 00:00:00 Completed [facility] Influenza Virus Vaccine Quad ID 18-64 YRS 2017-06-05 00:00:00 Completed [facility] Pneumococcal 13 Conjugate, PCV13 (Prevnar 13) 2017-06-05 00:00:00 Completed [facility] Influenza Virus Vaccine Quad ID 18-64 YRS 2017-06-05 00:00:00 Completed [facility] Pneumococcal 13 Conjugate, PCV13 (Prevnar 13) 2017-06-05 00:00:00 Completed [facility] Influenza Virus Vaccine Quad ID 18-64 YRS 2017-06-05 00:00:00 Completed [facility] Pneumococcal 13 Conjugate, PCV13 (Prevnar 13) 2017-06-05 00:00:00 Completed [facility] Influenza Virus Vaccine Quad ID 18-64 YRS 2017-06-05 00:00:00 Completed [facility] Pneumococcal 13 Conjugate, PCV13 (Prevnar 13) 2017-06-05 00:00:00 Completed [facility] Influenza Virus Vaccine Quad ID 18-64 YRS 2017-06-05 00:00:00 Completed [facility] Pneumococcal 13 Conjugate, PCV13 (Prevnar 13) 2017-06-05 00:00:00 Completed [facility] Influenza Virus Vaccine Quad ID 18-64 YRS 2017-06-05 00:00:00 Completed [facility] Pneumococcal 13 Conjugate, PCV13 (Prevnar 13) 2017-06-05 00:00:00 Completed [facility] Influenza Virus Vaccine Quad ID 18-64 YRS 2017-06-05 00:00:00 Completed [facility] Pneumococcal 13 Conjugate, PCV13 (Prevnar 13) 2017-06-05 00:00:00 Completed [facility] Influenza Virus Vaccine Quad ID 18-64 YRS 2017-06-05 00:00:00 Completed [facility] Pneumococcal 13 Conjugate, PCV13 (Prevnar 13) 2017-06-05 00:00:00 Completed [facility] Influenza Virus Vaccine Quad ID 18-64 YRS 2017-06-05 00:00:00 Completed [facility] Pneumococcal 13 Conjugate, PCV13 (Prevnar 13) 2017-06-05 00:00:00 Completed [facility] Influenza Virus Vaccine Quad ID 18-64 YRS 2017-06-05 00:00:00 Completed [facility] Pneumococcal 13 Conjugate, PCV13 (Prevnar 13) 2017-06-05 00:00:00 Completed [facility] Influenza Virus Vaccine Quad ID 18-64 YRS 2017-06-05 00:00:00 Completed [facility] Pneumococcal 13 Conjugate, PCV13 (Prevnar 13) 2017-06-05 00:00:00 Completed [facility] Influenza Virus Vaccine Quad ID 18-64 YRS 2017-06-05 00:00:00 Completed [facility] Pneumococcal 13 Conjugate, PCV13 (Prevnar 13) 2017-06-05 00:00:00 Completed [facility] Influenza Virus Vaccine Quad ID 18-64 YRS 2017-06-05 00:00:00 Completed [facility] Pneumococcal 13 Conjugate, PCV13 (Prevnar 13) 2017-06-05 00:00:00 Completed [facility] Influenza Virus Vaccine Quad ID 18-64 YRS 2017-06-05 00:00:00 Completed [facility] Pneumococcal 13 Conjugate, PCV13 (Prevnar 13) 2017-06-05 00:00:00 Completed [facility] Influenza Virus Vaccine Quad ID 18-64 YRS 2017-06-05 00:00:00 Completed [facility] Pneumococcal 13 Conjugate, PCV13 (Prevnar 13) 2017-06-05 00:00:00 Completed [facility] Influenza Virus Vaccine Quad ID 18-64 YRS 2017-06-05 00:00:00 Completed [facility] Pneumococcal 13 Conjugate, PCV13 (Prevnar 13) 2017-06-05 00:00:00 Completed [facility] Influenza Virus Vaccine Quad ID 18-64 YRS 2017-06-05 00:00:00 Completed [facility] Pneumococcal 13 Conjugate, PCV13 (Prevnar 13) 2017-06-05 00:00:00 Completed [facility] Influenza Virus Vaccine Quad ID 18-64 YRS 2017-06-05 00:00:00 Completed [facility] Pneumococcal 13 Conjugate, PCV13 (Prevnar 13) Unknown Completed [facility] Influenza Virus Vaccine Quad ID 18-64 YRS Unknown Completed [facility] Pneumococcal Polysaccharide, PPSV23 (PNEUMOVAX) Unknown Completed [facility] TDAP (ADACEL) VACCINE Unknown Completed [facility] Twinrix (hep a/hep b) Unknown Completed [facility] Influenza Virus Vaccine Quad .5 mL IM 6+ MO (FLUZONE/FLULAVAL/F LUARIX) Unknown Completed [facility] Influenza Virus Vaccine Recomb Quad IM, Preserv and ABX Free 18-64 YRS Unknown Completed [facility] SARS-COV-2 COVID-19 PFIZER VACCINE Unknown Completed [facility] Influenza Virus Vaccine Quad IM, Preserv and ABX Free 6 MO-64 YRS (FLUCELVAX) Unknown Completed [facility] SARS-COV-2 COVID-19 VACCINE 12 YRS+, BIVALENT 0.5ML, IM, (MODERNA-BLUE TOP) Unknown Completed [facility] Pneumococcal 13 Conjugate, PCV13 (Prevnar 13) Unknown Completed [facility] Influenza Virus Vaccine Quad ID 18-64 YRS Unknown Completed [facility] Pneumococcal Polysaccharide, PPSV23 (PNEUMOVAX) Unknown Completed [facility] TDAP (ADACEL) VACCINE Unknown Completed [facility] Twinrix (hep a/hep b) Unknown Completed [facility] Influenza Virus Vaccine Quad .5 mL IM 6+ MO (FLUZONE/FLULAVAL/F LUARIX) Unknown Completed [facility] Influenza Virus Vaccine Recomb Quad IM, Preserv and ABX Free 18-64 YRS Unknown Completed [facility] SARS-COV-2 COVID-19 PFIZER VACCINE Unknown Completed [facility] Influenza Virus Vaccine Quad IM, Preserv and ABX Free 6 MO-64 YRS (FLUCELVAX) Unknown Completed [facility] SARS-COV-2 COVID-19 VACCINE 12 YRS+, BIVALENT 0.5ML, IM, (MODERNA-BLUE TOP) Unknown Completed [facility] Pneumococcal 13 Conjugate, PCV13 (Prevnar 13) Unknown Completed [facility] Influenza Virus Vaccine Quad ID 18-64 YRS Unknown Completed [facility] Pneumococcal Polysaccharide, PPSV23 (PNEUMOVAX) Unknown Completed [facility] TDAP (ADACEL) VACCINE Unknown Completed [facility] Twinrix (hep a/hep b) Unknown Completed [facility] Influenza Virus Vaccine Quad .5 mL IM 6+ MO (FLUZONE/FLULAVAL/F LUARIX) Unknown Completed [facility] Influenza Virus Vaccine Recomb Quad IM, Preserv and ABX Free 18-64 YRS Unknown Completed [facility] SARS-COV-2 COVID-19 PFIZER VACCINE Unknown Completed [facility] Influenza Virus Vaccine Quad IM, Preserv and ABX Free 6 MO-64 YRS (FLUCELVAX) Unknown Completed [facility] SARS-COV-2 COVID-19 VACCINE 12 YRS+, BIVALENT 0.5ML, IM, (MODERNA-BLUE TOP) Unknown Completed [facility] Pneumococcal 13 Conjugate, PCV13 (Prevnar 13) Unknown Completed [facility] Influenza Virus Vaccine Quad ID 18-64 YRS Unknown Completed [facility] Pneumococcal Polysaccharide, PPSV23 (PNEUMOVAX) Unknown Completed [facility] TDAP (ADACEL) VACCINE Unknown Completed [facility] Twinrix (hep a/hep b) Unknown Completed [facility] Influenza Virus Vaccine Quad .5 mL IM 6+ MO (FLUZONE/FLULAVAL/F LUARIX) Unknown Completed [facility] Influenza Virus Vaccine Recomb Quad IM, Preserv and ABX Free 18-64 YRS Unknown Completed [facility] SARS-COV-2 COVID-19 PFIZER VACCINE Unknown Completed [facility] Influenza Virus Vaccine Quad IM, Preserv and ABX Free 6 MO-64 YRS (FLUCELVAX) Unknown Completed [facility] SARS-COV-2 COVID-19 VACCINE 12 YRS+, BIVALENT 0.5ML, IM, (MODERNA-BLUE TOP) Unknown Completed [facility] Pneumococcal 13 Conjugate, PCV13 (Prevnar 13) Unknown Completed [facility] Influenza Virus Vaccine Quad ID 18-64 YRS Unknown Completed [facility] Pneumococcal Polysaccharide, PPSV23 (PNEUMOVAX) Unknown Completed [facility] TDAP (ADACEL) VACCINE Unknown Completed [facility] Twinrix (hep a/hep b) Unknown Completed [facility] Influenza Virus Vaccine Quad .5 mL IM 6+ MO (FLUZONE/FLULAVAL/F LUARIX) Unknown Completed [facility] Influenza Virus Vaccine Recomb Quad IM, Preserv and ABX Free 18-64 YRS Unknown Completed [facility] SARS-COV-2 COVID-19 PFIZER VACCINE Unknown Completed [facility] Influenza Virus Vaccine Quad IM, Preserv and ABX Free 6 MO-64 YRS (FLUCELVAX) Unknown Completed [facility] SARS-COV-2 COVID-19 VACCINE 12 YRS+, BIVALENT 0.5ML, IM, (MODERNA-BLUE TOP) Unknown Completed [facility] Pneumococcal 13 Conjugate, PCV13 (Prevnar 13) Unknown Completed [facility] Influenza Virus Vaccine Quad ID 18-64 YRS Unknown Completed [facility] Pneumococcal Polysaccharide, PPSV23 (PNEUMOVAX) Unknown Completed [facility] TDAP (ADACEL) VACCINE Unknown Completed [facility] Twinrix (hep a/hep b) Unknown Completed [facility] Influenza Virus Vaccine Quad .5 mL IM 6+ MO (FLUZONE/FLULAVAL/F LUARIX) Unknown Completed [facility] Influenza Virus Vaccine Recomb Quad IM, Preserv and ABX Free 18-64 YRS Unknown Completed [facility] SARS-COV-2 COVID-19 PFIZER VACCINE Unknown Completed [facility] Influenza Virus Vaccine Quad IM, Preserv and ABX Free 6 MO-64 YRS (FLUCELVAX) Unknown Completed [facility] SARS-COV-2 COVID-19 VACCINE 12 YRS+, BIVALENT 0.5ML, IM, (MODERNA-BLUE TOP) Unknown Completed [facility] Pneumococcal 13 Conjugate, PCV13 (Prevnar 13) Unknown Completed [facility] Influenza Virus Vaccine Quad ID 18-64 YRS Unknown Completed [facility] Pneumococcal Polysaccharide, PPSV23 (PNEUMOVAX) Unknown Completed [facility] TDAP (ADACEL) VACCINE Unknown Completed [facility] Twinrix (hep a/hep b) Unknown Completed [facility] Influenza Virus Vaccine Quad .5 mL IM 6+ MO (FLUZONE/FLULAVAL/F LUARIX) Unknown Completed [facility] Influenza Virus Vaccine Recomb Quad IM, Preserv and ABX Free 18-64 YRS Unknown Completed [facility] SARS-COV-2 COVID-19 PFIZER VACCINE Unknown Completed [facility] Influenza Virus Vaccine Quad IM, Preserv and ABX Free 6 MO-64 YRS (FLUCELVAX) Unknown Completed [facility] SARS-COV-2 COVID-19 VACCINE 12 YRS+, BIVALENT 0.5ML, IM, (MODERNA-BLUE TOP) Unknown Completed [facility] Pneumococcal 13 Conjugate, PCV13 (Prevnar 13) Unknown Completed [facility] Influenza Virus Vaccine Quad ID 18-64 YRS Unknown Completed [facility] Pneumococcal Polysaccharide, PPSV23 (PNEUMOVAX) Unknown Completed [facility] TDAP (ADACEL) VACCINE Unknown Completed [facility] Twinrix (hep a/hep b) Unknown Completed [facility] Influenza Virus Vaccine Quad .5 mL IM 6+ MO (FLUZONE/FLULAVAL/F LUARIX) Unknown Completed [facility] Influenza Virus Vaccine Recomb Quad IM, Preserv and ABX Free 18-64 YRS Unknown Completed [facility] SARS-COV-2 COVID-19 PFIZER VACCINE Unknown Completed [facility] Influenza Virus Vaccine Quad IM, Preserv and ABX Free 6 MO-64 YRS (FLUCELVAX) Unknown Completed [facility] SARS-COV-2 COVID-19 VACCINE 12 YRS+, BIVALENT 0.5ML, IM, (MODERNA-BLUE TOP) Unknown Completed [facility] Pneumococcal 13 Conjugate, PCV13 (Prevnar 13) Unknown Completed [facility] Influenza Virus Vaccine Quad ID 18-64 YRS Unknown Completed [facility] Pneumococcal Polysaccharide, PPSV23 (PNEUMOVAX) Unknown Completed [facility] TDAP (ADACEL) VACCINE Unknown Completed [facility] Twinrix (hep a/hep b) Unknown Completed [facility] Influenza Virus Vaccine Quad .5 mL IM 6+ MO (FLUZONE/FLULAVAL/F LUARIX) Unknown Completed [facility] Influenza Virus Vaccine Recomb Quad IM, Preserv and ABX Free 18-64 YRS Unknown Completed [facility] SARS-COV-2 COVID-19 PFIZER VACCINE Unknown Completed [facility] Influenza Virus Vaccine Quad IM, Preserv and ABX Free 6 MO-64 YRS (FLUCELVAX) Unknown Completed [facility] SARS-COV-2 COVID-19 VACCINE 12 YRS+, BIVALENT 0.5ML, IM, (MODERNA-BLUE TOP) Unknown Completed [facility] Pneumococcal 13 Conjugate, PCV13 (Prevnar 13) Unknown Completed [facility] Influenza Virus Vaccine Quad ID 18-64 YRS Unknown Completed [facility] Pneumococcal Polysaccharide, PPSV23 (PNEUMOVAX) Unknown Completed [facility] TDAP (ADACEL) VACCINE Unknown Completed [facility] Twinrix (hep a/hep b) Unknown Completed [facility] Influenza Virus Vaccine Quad .5 mL IM 6+ MO (FLUZONE/FLULAVAL/F LUARIX) Unknown Completed [facility] Influenza Virus Vaccine Recomb Quad IM, Preserv and ABX Free 18-64 YRS Unknown Completed [facility] SARS-COV-2 COVID-19 PFIZER VACCINE Unknown Completed [facility] Influenza Virus Vaccine Quad IM, Preserv and ABX Free 6 MO-64 YRS (FLUCELVAX) Unknown Completed [facility] SARS-COV-2 COVID-19 VACCINE 12 YRS+, BIVALENT 0.5ML, IM, (MODERNA-BLUE TOP) Unknown Completed [facility] Pneumococcal 13 Conjugate, PCV13 (Prevnar 13) Unknown Completed [facility] Influenza Virus Vaccine Quad ID 18-64 YRS Unknown Completed [facility] Pneumococcal Polysaccharide, PPSV23 (PNEUMOVAX) Unknown Completed [facility] TDAP (ADACEL) VACCINE Unknown Completed [facility] Twinrix (hep a/hep b) Unknown Completed [facility] Influenza Virus Vaccine Quad .5 mL IM 6+ MO (FLUZONE/FLULAVAL/F LUARIX) Unknown Completed [facility] Influenza Virus Vaccine Recomb Quad IM, Preserv and ABX Free 18-64 YRS Unknown Completed [facility] SARS-COV-2 COVID-19 PFIZER VACCINE Unknown Completed [facility] Influenza Virus Vaccine Quad IM, Preserv and ABX Free 6 MO-64 YRS (FLUCELVAX) Unknown Completed [facility] SARS-COV-2 COVID-19 VACCINE 12 YRS+, BIVALENT 0.5ML, IM, (MODERNA-BLUE TOP) Unknown Completed [facility] Pneumococcal 13 Conjugate, PCV13 (Prevnar 13) Unknown Completed [facility] Influenza Virus Vaccine Quad ID 18-64 YRS Unknown Completed [facility] Pneumococcal Polysaccharide, PPSV23 (PNEUMOVAX) Unknown Completed [facility] TDAP (ADACEL) VACCINE Unknown Completed [facility] Twinrix (hep a/hep b) Unknown Completed [facility] Influenza Virus Vaccine Quad .5 mL IM 6+ MO (FLUZONE/FLULAVAL/F LUARIX) Unknown Completed [facility] Influenza Virus Vaccine Recomb Quad IM, Preserv and ABX Free 18-64 YRS Unknown Completed [facility] SARS-COV-2 COVID-19 PFIZER VACCINE Unknown Completed [facility] Influenza Virus Vaccine Quad IM, Preserv and ABX Free 6 MO-64 YRS (FLUCELVAX) Unknown Completed [facility] SARS-COV-2 COVID-19 VACCINE 12 YRS+, BIVALENT 0.5ML, IM, (MODERNA-BLUE TOP) Unknown Completed [facility] Pneumococcal 13 Conjugate, PCV13 (Prevnar 13) Unknown Completed [facility] Influenza Virus Vaccine Quad ID 18-64 YRS Unknown Completed [facility] Pneumococcal Polysaccharide, PPSV23 (PNEUMOVAX) Unknown Completed [facility] TDAP (ADACEL) VACCINE Unknown Completed [facility] Twinrix (hep a/hep b) Unknown Completed [facility] Influenza Virus Vaccine Quad .5 mL IM 6+ MO (FLUZONE/FLULAVAL/F LUARIX) Unknown Completed [facility] Influenza Virus Vaccine Recomb Quad IM, Preserv and ABX Free 18-64 YRS Unknown Completed [facility] SARS-COV-2 COVID-19 PFIZER VACCINE Unknown Completed [facility] Influenza Virus Vaccine Quad IM, Preserv and ABX Free 6 MO-64 YRS (FLUCELVAX) Unknown Completed [facility] SARS-COV-2 COVID-19 VACCINE 12 YRS+, BIVALENT 0.5ML, IM, (MODERNA-BLUE TOP) Unknown Completed [facility] Pneumococcal 13 Conjugate, PCV13 (Prevnar 13) Unknown Completed [facility] Influenza Virus Vaccine Quad ID 18-64 YRS Unknown Completed [facility] Pneumococcal Polysaccharide, PPSV23 (PNEUMOVAX) Unknown Completed [facility] TDAP (ADACEL) VACCINE Unknown Completed [facility] Twinrix (hep a/hep b) Unknown Completed [facility] Influenza Virus Vaccine Quad .5 mL IM 6+ MO (FLUZONE/FLULAVAL/F LUARIX) Unknown Completed [facility] Influenza Virus Vaccine Recomb Quad IM, Preserv and ABX Free 18-64 YRS Unknown Completed [facility] SARS-COV-2 COVID-19 PFIZER VACCINE Unknown Completed [facility] Influenza Virus Vaccine Quad IM, Preserv and ABX Free 6 MO-64 YRS (FLUCELVAX) Unknown Completed [facility] SARS-COV-2 COVID-19 VACCINE 12 YRS+, BIVALENT 0.5ML, IM, (MODERNA-BLUE TOP) Unknown Completed [facility] Pneumococcal 13 Conjugate, PCV13 (Prevnar 13) Unknown Completed [facility] Influenza Virus Vaccine Quad ID 18-64 YRS Unknown Completed [facility] Pneumococcal Polysaccharide, PPSV23 (PNEUMOVAX) Unknown Completed [facility] TDAP (ADACEL) VACCINE Unknown Completed [facility] Twinrix (hep a/hep b) Unknown Completed [facility] Influenza Virus Vaccine Quad .5 mL IM 6+ MO (FLUZONE/FLULAVAL/F LUARIX) Unknown Completed [facility] Influenza Virus Vaccine Recomb Quad IM, Preserv and ABX Free 18-64 YRS Unknown Completed [facility] SARS-COV-2 COVID-19 PFIZER VACCINE Unknown Completed [facility] Influenza Virus Vaccine Quad IM, Preserv and ABX Free 6 MO-64 YRS (FLUCELVAX) Unknown Completed [facility] SARS-COV-2 COVID-19 VACCINE 12 YRS+, BIVALENT 0.5ML, IM, (MODERNA-BLUE TOP) Unknown Completed [facility] Pneumococcal 13 Conjugate, PCV13 (Prevnar 13) Unknown Completed [facility] Influenza Virus Vaccine Quad ID 18-64 YRS Unknown Completed [facility] Pneumococcal Polysaccharide, PPSV23 (PNEUMOVAX) Unknown Completed [facility] TDAP (ADACEL) VACCINE Unknown Completed [facility] Twinrix (hep a/hep b) Unknown Completed [facility] Influenza Virus Vaccine Quad .5 mL IM 6+ MO (FLUZONE/FLULAVAL/F LUARIX) Unknown Completed [facility] Influenza Virus Vaccine Recomb Quad IM, Preserv and ABX Free 18-64 YRS Unknown Completed [facility] SARS-COV-2 COVID-19 PFIZER VACCINE Unknown Completed [facility] Influenza Virus Vaccine Quad IM, Preserv and ABX Free 6 MO-64 YRS (FLUCELVAX) Unknown Completed [facility] SARS-COV-2 COVID-19 VACCINE 12 YRS+, BIVALENT 0.5ML, IM, (MODERNA-BLUE TOP) Unknown Completed [facility] Pneumococcal 13 Conjugate, PCV13 (Prevnar 13) Unknown Completed [facility] Influenza Virus Vaccine Quad ID 18-64 YRS Unknown Completed [facility] Pneumococcal Polysaccharide, PPSV23 (PNEUMOVAX) Unknown Completed [facility] TDAP (ADACEL) VACCINE Unknown Completed [facility] Twinrix (hep a/hep b) Unknown Completed [facility] Influenza Virus Vaccine Quad .5 mL IM 6+ MO (FLUZONE/FLULAVAL/F LUARIX) Unknown Completed [facility] Influenza Virus Vaccine Recomb Quad IM, Preserv and ABX Free 18-64 YRS Unknown Completed [facility] SARS-COV-2 COVID-19 PFIZER VACCINE Unknown Completed [facility] Influenza Virus Vaccine Quad IM, Preserv and ABX Free 6 MO-64 YRS (FLUCELVAX) Unknown Completed [facility] SARS-COV-2 COVID-19 VACCINE 12 YRS+, BIVALENT 0.5ML, IM, (MODERNA-BLUE TOP) Unknown Completed [facility] Pneumococcal 13 Conjugate, PCV13 (Prevnar 13) Unknown Completed [facility] Influenza Virus Vaccine Quad ID 18-64 YRS Unknown Completed [facility] Pneumococcal Polysaccharide, PPSV23 (PNEUMOVAX) Unknown Completed [facility] TDAP (ADACEL) VACCINE Unknown Completed [facility] Twinrix (hep a/hep b) Unknown Completed [facility] Influenza Virus Vaccine Quad .5 mL IM 6+ MO (FLUZONE/FLULAVAL/F LUARIX) Unknown Completed [facility] Influenza Virus Vaccine Recomb Quad IM, Preserv and ABX Free 18-64 YRS Unknown Completed [facility] SARS-COV-2 COVID-19 PFIZER VACCINE Unknown Completed [facility] Influenza Virus Vaccine Quad IM, Preserv and ABX Free 6 MO-64 YRS (FLUCELVAX) Unknown Completed [facility] SARS-COV-2 COVID-19 VACCINE 12 YRS+, BIVALENT 0.5ML, IM, (MODERNA-BLUE TOP) Unknown Completed [facility] Pneumococcal 13 Conjugate, PCV13 (Prevnar 13) Unknown Completed [facility] Influenza Virus Vaccine Quad ID 18-64 YRS Unknown Completed [facility] Pneumococcal Polysaccharide, PPSV23 (PNEUMOVAX) Unknown Completed [facility] TDAP (ADACEL) VACCINE Unknown Completed [facility] Twinrix (hep a/hep b) Unknown Completed [facility] Influenza Virus Vaccine Quad .5 mL IM 6+ MO (FLUZONE/FLULAVAL/F LUARIX) Unknown Completed [facility] Influenza Virus Vaccine Recomb Quad IM, Preserv and ABX Free 18-64 YRS Unknown Completed [facility] SARS-COV-2 COVID-19 PFIZER VACCINE Unknown Completed [facility] Influenza Virus Vaccine Quad IM, Preserv and ABX Free 6 MO-64 YRS (FLUCELVAX) Unknown Completed [facility] SARS-COV-2 COVID-19 VACCINE 12 YRS+, BIVALENT 0.5ML, IM, (MODERNA-BLUE TOP) Unknown Completed [facility] Pneumococcal 13 Conjugate, PCV13 (Prevnar 13) Unknown Completed [facility] Influenza Virus Vaccine Quad ID 18-64 YRS Unknown Completed [facility] Pneumococcal Polysaccharide, PPSV23 (PNEUMOVAX) Unknown Completed [facility] TDAP (ADACEL) VACCINE Unknown Completed [facility] Twinrix (hep a/hep b) Unknown Completed [facility] Influenza Virus Vaccine Quad .5 mL IM 6+ MO (FLUZONE/FLULAVAL/F LUARIX) Unknown Completed [facility] Influenza Virus Vaccine Recomb Quad IM, Preserv and ABX Free 18-64 YRS Unknown Completed [facility] SARS-COV-2 COVID-19 PFIZER VACCINE Unknown Completed [facility] Influenza Virus Vaccine Quad IM, Preserv and ABX Free 6 MO-64 YRS (FLUCELVAX) Unknown Completed [facility] SARS-COV-2 COVID-19 VACCINE 12 YRS+, BIVALENT 0.5ML, IM, (MODERNA-BLUE TOP) Unknown Completed [facility] Pneumococcal 13 Conjugate, PCV13 (Prevnar 13) Unknown Completed [facility] Influenza Virus Vaccine Quad ID 18-64 YRS Unknown Completed [facility] Pneumococcal Polysaccharide, PPSV23 (PNEUMOVAX) Unknown Completed [facility] TDAP (ADACEL) VACCINE Unknown Completed [facility] Twinrix (hep a/hep b) Unknown Completed [facility] Influenza Virus Vaccine Quad .5 mL IM 6+ MO (FLUZONE/FLULAVAL/F LUARIX) Unknown Completed [facility] Influenza Virus Vaccine Recomb Quad IM, Preserv and ABX Free 18-64 YRS Unknown Completed [facility] SARS-COV-2 COVID-19 PFIZER VACCINE Unknown Completed [facility] Influenza Virus Vaccine Quad IM, Preserv and ABX Free 6 MO-64 YRS (FLUCELVAX) Unknown Completed [facility] SARS-COV-2 COVID-19 VACCINE 12 YRS+, BIVALENT 0.5ML, IM, (MODERNA-BLUE TOP) Unknown Completed [facility] Pneumococcal 13 Conjugate, PCV13 (Prevnar 13) Unknown Completed [facility] Influenza Virus Vaccine Quad ID 18-64 YRS Unknown Completed [facility] Pneumococcal Polysaccharide, PPSV23 (PNEUMOVAX) Unknown Completed [facility] TDAP (ADACEL) VACCINE Unknown Completed [facility] Twinrix (hep a/hep b) Unknown Completed [facility] Influenza Virus Vaccine Quad .5 mL IM 6+ MO (FLUZONE/FLULAVAL/F LUARIX) Unknown Completed [facility] Influenza Virus Vaccine Recomb Quad IM, Preserv and ABX Free 18-64 YRS Unknown Completed [facility] SARS-COV-2 COVID-19 PFIZER VACCINE Unknown Completed [facility] Influenza Virus Vaccine Quad IM, Preserv and ABX Free 6 MO-64 YRS (FLUCELVAX) Unknown Completed [facility] SARS-COV-2 COVID-19 VACCINE 12 YRS+, BIVALENT 0.5ML, IM, (MODERNA-BLUE TOP) Unknown Completed [facility] Pneumococcal 13 Conjugate, PCV13 (Prevnar 13) Unknown Completed [facility] Influenza Virus Vaccine Quad ID 18-64 YRS Unknown Completed [facility] Pneumococcal Polysaccharide, PPSV23 (PNEUMOVAX) Unknown Completed [facility] TDAP (ADACEL) VACCINE Unknown Completed [facility] Twinrix (hep a/hep b) Unknown Completed [facility] Influenza Virus Vaccine Quad .5 mL IM 6+ MO (FLUZONE/FLULAVAL/F LUARIX) Unknown Completed [facility] Influenza Virus Vaccine Recomb Quad IM, Preserv and ABX Free 18-64 YRS Unknown Completed [facility] SARS-COV-2 COVID-19 PFIZER VACCINE Unknown Completed [facility] Influenza Virus Vaccine Quad IM, Preserv and ABX Free 6 MO-64 YRS (FLUCELVAX) Unknown Completed [facility] SARS-COV-2 COVID-19 VACCINE 12 YRS+, BIVALENT 0.5ML, IM, (MODERNA-BLUE TOP) Unknown Completed [facility] Pneumococcal 13 Conjugate, PCV13 (Prevnar 13) Unknown Completed [facility] Influenza Virus Vaccine Quad ID 18-64 YRS Unknown Completed [facility] Pneumococcal Polysaccharide, PPSV23 (PNEUMOVAX) Unknown Completed [facility] TDAP (ADACEL) VACCINE Unknown Completed [facility] Twinrix (hep a/hep b) Unknown Completed [facility] Influenza Virus Vaccine Quad .5 mL IM 6+ MO (FLUZONE/FLULAVAL/F LUARIX) Unknown Completed [facility] Influenza Virus Vaccine Recomb Quad IM, Preserv and ABX Free 18-64 YRS Unknown Completed [facility] SARS-COV-2 COVID-19 PFIZER VACCINE Unknown Completed [facility] Influenza Virus Vaccine Quad IM, Preserv and ABX Free 6 MO-64 YRS (FLUCELVAX) Unknown Completed [facility] SARS-COV-2 COVID-19 VACCINE 12 YRS+, BIVALENT 0.5ML, IM, (MODERNA-BLUE TOP) Unknown Completed [facility] Pneumococcal 13 Conjugate, PCV13 (Prevnar 13) Unknown Completed [facility] Influenza Virus Vaccine Quad ID 18-64 YRS Unknown Completed [facility] Pneumococcal Polysaccharide, PPSV23 (PNEUMOVAX) Unknown Completed [facility] TDAP (ADACEL) VACCINE Unknown Completed [facility] Twinrix (hep a/hep b) Unknown Completed [facility] Influenza Virus Vaccine Quad .5 mL IM 6+ MO (FLUZONE/FLULAVAL/F LUARIX) Unknown Completed [facility] Influenza Virus Vaccine Recomb Quad IM, Preserv and ABX Free 18-64 YRS Unknown Completed [facility] SARS-COV-2 COVID-19 PFIZER VACCINE Unknown Completed [facility] Influenza Virus Vaccine Quad IM, Preserv and ABX Free 6 MO-64 YRS (FLUCELVAX) Unknown Completed [facility] SARS-COV-2 COVID-19 VACCINE 12 YRS+, BIVALENT 0.5ML, IM, (MODERNA-BLUE TOP) Unknown Completed [facility] Pneumococcal 13 Conjugate, PCV13 (Prevnar 13) Unknown Completed [facility] Influenza Virus Vaccine Quad ID 18-64 YRS Unknown Completed [facility] Pneumococcal Polysaccharide, PPSV23 (PNEUMOVAX) Unknown Completed [facility] TDAP (ADACEL) VACCINE Unknown Completed [facility] Twinrix (hep a/hep b) Unknown Completed [facility] Influenza Virus Vaccine Quad .5 mL IM 6+ MO (FLUZONE/FLULAVAL/F LUARIX) Unknown Completed [facility] Influenza Virus Vaccine Recomb Quad IM, Preserv and ABX Free 18-64 YRS Unknown Completed [facility] SARS-COV-2 COVID-19 PFIZER VACCINE Unknown Completed [facility] Influenza Virus Vaccine Quad IM, Preserv and ABX Free 6 MO-64 YRS (FLUCELVAX) Unknown Completed [facility] SARS-COV-2 COVID-19 VACCINE 12 YRS+, BIVALENT 0.5ML, IM, (MODERNA-BLUE TOP) Unknown Completed [facility] Pneumococcal 13 Conjugate, PCV13 (Prevnar 13) Unknown Completed [facility] Influenza Virus Vaccine Quad ID 18-64 YRS Unknown Completed [facility] Pneumococcal Polysaccharide, PPSV23 (PNEUMOVAX) Unknown Completed [facility] TDAP (ADACEL) VACCINE Unknown Completed [facility] Twinrix (hep a/hep b) Unknown Completed [facility] Influenza Virus Vaccine Quad .5 mL IM 6+ MO (FLUZONE/FLULAVAL/F LUARIX) Unknown Completed [facility] Influenza Virus Vaccine Recomb Quad IM, Preserv and ABX Free 18-64 YRS Unknown Completed [facility] SARS-COV-2 COVID-19 PFIZER VACCINE Unknown Completed [facility] Influenza Virus Vaccine Quad IM, Preserv and ABX Free 6 MO-64 YRS (FLUCELVAX) Unknown Completed [facility] SARS-COV-2 COVID-19 VACCINE 12 YRS+, BIVALENT 0.5ML, IM, (MODERNA-BLUE TOP) Unknown Completed [facility] Pneumococcal 13 Conjugate, PCV13 (Prevnar 13) Unknown Completed [facility] Influenza Virus Vaccine Quad ID 18-64 YRS Unknown Completed [facility] Pneumococcal Polysaccharide, PPSV23 (PNEUMOVAX) Unknown Completed [facility] TDAP (ADACEL) VACCINE Unknown Completed [facility] Twinrix (hep a/hep b) Unknown Completed [facility] Influenza Virus Vaccine Quad .5 mL IM 6+ MO (FLUZONE/FLULAVAL/F LUARIX) Unknown Completed [facility] Influenza Virus Vaccine Recomb Quad IM, Preserv and ABX Free 18-64 YRS Unknown Completed [facility] SARS-COV-2 COVID-19 PFIZER VACCINE Unknown Completed [facility] Influenza Virus Vaccine Quad IM, Preserv and ABX Free 6 MO-64 YRS (FLUCELVAX) Unknown Completed [facility] SARS-COV-2 COVID-19 VACCINE 12 YRS+, BIVALENT 0.5ML, IM, (MODERNA-BLUE TOP) Unknown Completed [facility] Pneumococcal 13 Conjugate, PCV13 (Prevnar 13) Unknown Completed [facility] Influenza Virus Vaccine Quad ID 18-64 YRS Unknown Completed [facility] Pneumococcal Polysaccharide, PPSV23 (PNEUMOVAX) Unknown Completed [facility] TDAP (ADACEL) VACCINE Unknown Completed [facility] Twinrix (hep a/hep b) Unknown Completed [facility] Influenza Virus Vaccine Quad .5 mL IM 6+ MO (FLUZONE/FLULAVAL/F LUARIX) Unknown Completed [facility] Influenza Virus Vaccine Recomb Quad IM, Preserv and ABX Free 18-64 YRS Unknown Completed [facility] SARS-COV-2 COVID-19 PFIZER VACCINE Unknown Completed [facility] Influenza Virus Vaccine Quad IM, Preserv and ABX Free 6 MO-64 YRS (FLUCELVAX) Unknown Completed [facility] SARS-COV-2 COVID-19 VACCINE 12 YRS+, BIVALENT 0.5ML, IM, (MODERNA-BLUE TOP) Unknown Completed [facility] Pneumococcal 13 Conjugate, PCV13 (Prevnar 13) Unknown Completed [facility] Influenza Virus Vaccine Quad ID 18-64 YRS Unknown Completed [facility] Pneumococcal Polysaccharide, PPSV23 (PNEUMOVAX) Unknown Completed [facility] TDAP (ADACEL) VACCINE Unknown Completed [facility] Twinrix (hep a/hep b) Unknown Completed [facility] Influenza Virus Vaccine Quad .5 mL IM 6+ MO (FLUZONE/FLULAVAL/F LUARIX) Unknown Completed [facility] Influenza Virus Vaccine Recomb Quad IM, Preserv and ABX Free 18-64 YRS Unknown Completed [facility] SARS-COV-2 COVID-19 PFIZER VACCINE Unknown Completed [facility] Influenza Virus Vaccine Quad IM, Preserv and ABX Free 6 MO-64 YRS (FLUCELVAX) Unknown Completed [facility] SARS-COV-2 COVID-19 VACCINE 12 YRS+, BIVALENT 0.5ML, IM, (MODERNA-BLUE TOP) Unknown Completed [facility] Vital Signs Vital Name Observation Time Observation Value Comments S ource Systolic blood pressure 2023-05-03 15:03:00 139 mm[Hg] [facility] Diastolic blood pressure 2023-05-03 15:03:00 78 mm[Hg] [facility] Heart rate 2023-05-03 15:03:00 78 /min [facility] Body temperature 2023-05-03 15:03:00 36.44 Neli [facility] Respiratory rate 2023-05-03 15:03:00 18 /min [facility] Body height 2023-05-03 15:03:00 170.2 cm [facility] Body weight 2023-05-03 15:03:00 73.71 kg [facility] BMI 2023-05-03 15:03:00 25.45 kg/m2 [facility] Oxygen saturation in Arterial blood by Pulse oximetry 2023-05-03 15:03:00 100 /min [facility] Systolic blood pressure 2023-02-16 21:47:00 105 mm[Hg] [facility] Diastolic blood pressure 2023-02-16 21:47:00 64 mm[Hg] [facility] Heart rate 2023-02-16 21:47:00 78 /min [facility] Body temperature 2023-02-16 21:47:00 36.56 Neli [facility] Respiratory rate 2023-02-16 21:47:00 18 /min [facility] Body height 2023-02-16 21:47:00 170.2 cm [facility] Body weight 2023-02-16 21:47:00 76.204 kg [facility] BMI 2023-02-16 21:47:00 26.31 kg/m2 [facility] Oxygen saturation in Arterial blood by Pulse oximetry 2023-02-16 21:47:00 96 /min room air [facility] Systolic blood pressure 2022-06-20 15:30:00 132 mm[Hg] [facility] Diastolic blood pressure 2022-06-20 15:30:00 74 mm[Hg] [facility] Heart rate 2022-06-20 15:25:00 87 /min [facility] Body temperature 2022-06-20 15:25:00 36.17 Neli [facility] Respiratory rate 2022-06-20 15:25:00 18 /min [facility] Body height 2022-06-20 15:25:00 170.2 cm [facility] Body weight 2022-06-20 15:25:00 64.411 kg [facility] BMI 2022-06-20 15:25:00 22.24 kg/m2 [facility] Systolic blood pressure 2022-05-02 21:37:00 134 mm[Hg] [facility] Diastolic blood pressure 2022-05-02 21:37:00 85 mm[Hg] [facility] Heart rate 2022-05-02 21:36:00 86 /min [facility] Body temperature 2022-05-02 21:36:00 36.44 Neli [facility] Body height 2022-05-02 21:36:00 170.2 cm [facility] Body weight 2022-05-02 21:36:00 63.504 kg [facility] BMI 2022-05-02 21:36:00 21.93 kg/m2 [facility] Systolic blood pressure 2021-10-18 21:08:00 140 mm[Hg] [facility] Diastolic blood pressure 2021-10-18 21:08:00 87 mm[Hg] [facility] Heart rate 2021-10-18 21:08:00 84 /min [facility] Body temperature 2021-10-18 21:05:00 36.78 Neli [facility] Respiratory rate 2021-10-18 21:05:00 16 /min [facility] Body height 2021-10-18 21:05:00 167.6 cm [facility] Body weight 2021-10-18 21:05:00 64.093 kg [facility] BMI 2021-10-18 21:05:00 22.81 kg/m2 [facility] Body Temperature 2024-06-20 14:21:00 98.20 degrees Octavio F [place] Heart Rate 2024-06-20 14:21:00 83.00 /min Leesa en [facility] Respiratory Rate 2024-06-20 14:21:00 16.00 /min Octavio F [facility] BP Systolic 2024-06-20 14:21:00 134 mm[Hg] Step hen F [facility] BP Diastolic 2024-06-20 14:21:00 86 mm[Hg] Pratik phen F [facility] Weight Measured 2024-06-20 14:21:00 161.00 pounds Octavio F [facility] Height Measured 2024-06-20 14:21:00 67.00 inches Octavio F [facility] BP Systolic 2023-04-02 11:49:00 125 mm[Hg] Step hen F [place] BP Diastolic 2023-04-02 11:49:00 85 mm[Hg] Pratik Lan Weight Measured 2023-04-02 11:49:00 164.00 pounds Octavio Lan Height Measured 2023-04-02 11:49:00 67.00 inches Octavio Lan Body Temperature 2023-04-02 11:49:00 98.60 degrees Octavio Lan Heart Rate 2023-04-02 11:49:00 64.00 /min Leesa Lna Respiratory Rate 2023-04-02 11:49:00 Octavio Lan Procedures Procedure Date / Time Performed Performing Clinician Source AUTHORIZATION TO RELEASE [facility]I [facility] 2023-07-20 06:01:00 Doctor Unassigned, Angelica [facility] MR LUMBAR SPINE WO CONTRAST 2023-06-22 17:11:18 Prudence Flores [facility] CONSENT/REFUSAL FOR DIAGNOSIS AND TREATMENT 2023-06-22 16:25:22 Doctor Unassigned, Angelica [facility] ASSIGNMENT OF BENEFITS 2022-06-20 15:18:10 Docto r Unassigned, Angelica [facility] FLU VACC (), 6 MO-64 YRS, .5ML, IM, QUAD (FLUCELVAX) 2022-05-02 22:01:31 Sobeida Pollard [facility] SARS-COV-2 COVID-19 VACCINE 18 YRS+, BIVALENT 0.5ML, IM (MODERNA BOOSTER) 2022-05-02 22:01:31 Sobeida Pollard [facility] AUTHORIZATION FOR RELEASE OF PHI 2022-01-15 05:01:00 Doctor Unassigned, Angelica [facility] FLU VACC (), 2-64 YRS, .5ML, IM, QUAD (FLUCELVAX) 2021-10-18 23:00:52 Chris Linder [facility] AUTHORIZATION FOR RELEASE OF PHI 2021-09-21 06:01:00 Doctor Unassigned, Angelica [facility] Encounters Start Date/Time End Date/Time Encounter Type Admission Type Attending Clinicians Care Facility Care Department Encounter ID Source 2023-01-11 13:08:33 Outpatient [id number] [facility] 2022 10:48:23 Outpatient Mia [facility] [id number] [facility] 2019-02-17 00:00:00 2024-09-27 03:09:12 Orders Only Shruthi Brooks Todd Shruthi [facility] ([facility] [id number] [facility] 2023-05-02 00:00:00 2024-09-27 02:38:11 Orders Only Alvarado, Erin Alvarado, [facility] AMELIE?[facility] [id number] [facility] 2023-10-23 00:00:00 2024-09-27 02:34:29 Orders Only Alvarado, Erin Alvarado, Erin [facility] AMELIE?[facility] [id number] [facility] 2023-11-26 00:00:00 2024-09-27 02:20:18 Orders Only Alvarado, Erin Alvarado, [facility] AMELIE?[facility] [id number] [facility] 2024-09-16 16:00:00 2024-09-16 16:00:00 Outpatient CHRIS ALFONSO LUCAS [facility] [id number] [facility] 2024-07-22 16:00:00 2024-07-22 16:00:00 Outpatient CHRIS ALFONSO LUCAS [facility] [id number] [facility] 2024-06-19 00:00:00 2024-06-23 15:15:56 Telephone KailashChris licona [facility] [id number] [facility] 2024-06-20 14:08:04 2024-06-20 14:08:04 Outpatient SFA [facility] [id number] Lan 2024-06-20 00:00:00 2024-06-20 00:00:00 Outpatient Visit [facility] [id number] Octavio Lan 2024-06-17 16:00:00 2024-06-17 16:00:00 Outpatient CHRIS ALFONSO LUCAS [facility] [id number] [facility] 2024-06-17 00:00:00 2024-06-17 11:00:31 Telephone KailashChris licona [facility] 1.2.840.114 350.1.13.10 4.2.7.2.686 [id number] [facility] 2024-06-10 15:00:00 2024-06-10 15:00:00 Outpatient CHRIS ALFONSO LUCAS [facility] [id number] [facility] 2024-06-03 10:15:00 2024-06-03 10:15:00 Outpatient IZABEL GAFFNEY [facility] [id number] [facility] 2024-05-26 10:15:00 2024-05-26 10:15:00 Outpatient IZABEL GAFFNEY [facility] [id number] [facility] 2024-05-21 09:45:00 2024-05-21 09:45:00 Outpatient IZABEL GAFFNEY [facility] [id number] [facility] 2024-05-21 09:20:00 2024-05-21 09:20:00 Outpatient Mia LIM LAURAJOSE RAUL COREASGORDON [facility] [id number] [facility] 2024-05-15 00:00:00 2024-05-15 14:29:54 Telephone Chris Linder [facility] 1.2.840.114 350.1.13.10 4.2.7.2.686 [id number] [facility] 2024-04-15 16:30:00 2024-04-15 16:30:00 Outpatient CHRIS ALFONSO LUCAS [facility] [id number] [facility] 2024-04-15 14:00:00 2024-04-15 14:00:00 Outpatient CHRIS ALFONSO LUCAS [facility] [id number] [facility] 2024-03-25 00:00:00 2024-04-07 13:30:39 Refill Chris Linder S [facility] 1.2.840.114 350.1.13.10 4.2.7.2.686 [id number] [facility] 2024-04-01 15:00:00 2024-04-01 15:00:00 Outpatient CHRIS ALFONSO LUCAS [facility] [id number] [facility] 2024-03-27 00:00:00 2024-03-27 16:26:17 Telephone Chris Linder [facility] 1.2.840.114 350.1.13.10 4.2.7.2.686 [id number] [id number] [facility] 2024-03-09 00:00:00 2024-03-11 14:03:56 Refill Chris Linder [facility] 1.2.840.114 350.1.13.10 4.2.7.2.686 [id number] [id number] [facility] 2024-02-27 00:00:00 2024-02-29 17:21:04 Refill Kailash [facility] 1.2.840.114 350.1.13.10 4.2.7.2.686 [id number] [facility] 2024-01-20 00:00:00 2024-01-22 15:39:19 [facility] 1.2.840.114 350.1.13.10 4.2.7.2.686 [id number] 089 [id number] [facility] 2024-01-15 10:40:00 2024-01-15 10:40:00 Outpatient PRUDENCE TATE [facility] [id number] [facility] 2023-12-24 00:00:00 2023-12-26 16:42:49 [facility] 1.2.840.114 350.1.13.10 4.2.7.2.686 [id number] 089 [id number] [facility] 2023-12-12 00:00:00 2023-12-12 00:00:00 Refill Kailash, [facility] 1.2.840.114 350.1.13.10 4.2.7.2.686 [id number] [facility] 2023-11-30 16:00:00 2023-11-30 16:00:00 Outpatient PRUDENCE TATE [facility] [id number] [facility] 2023-11-27 15:25:17 2023-11-27 15:25:17 Outpatient [facility] [id number] Octav[address] Lan 2023-11-19 00:00:00 2023-11-19 00:00:00 Refill Prudence Flores [facility] 1..840.114 350.1.13.10 4.2.7.2.686 [id number] [facility] 2023-11-01 10:20:00 2023-11-01 10:20:00 Outpatient R PRUDENCE FLORES [facility] [id number] [facility] 2023-10-15 00:00:00 2023-10-15 00:00:00 Refill Prudence Flores [place] [facility] AMELIE?[facility] 1.840.114 350.1.13.10 4.2.7.2.686 [id number] [facility] 2023-09-20 00:00:00 2023-09-20 00:00:00 Refill Chris Linder [facility] 1.84.114 350.1.13.10 4.2.7.2.686 [id number] [facility] 2023-09-20 00:00:00 2023-09-20 00:00:00 Refill Prudence Flores [facility] 1.840.114 350.1.13.10 4.2.7.2.686 [id number] [id number] [facility] 2023-08-31 00:00:00 2023-08-31 00:00:00 Telephone Prudence Flores [facility] 1.840.114 350.1.13.10 4.2.7.2.686 [id number] [id number] [facility] 2023-08-17 00:00:00 2023-08-17 00:00:00 Refill Prudence Flores [facility] AM[facility] 1.2.840.114 350.1.13.10 4.2.7.2.686 [id number] 044 [id number] [facility] 2023-07-20 00:00:00 2023-07-20 00:00:00 Orders Only Doctor Unassigned, Angelica [facility] 1.2840.114 350.1.13.10 4.2.7.2.686 [id number] [facility] 2023-07-09 00:00:00 2023-07-09 00:00:00 Telephone Prudence Flores [facility] 1.2.840.114 350.1.13.10 4.2.7.2.686 [id number] [facility] 2023-06-22 10:25:30 2023-06-22 23:59:00 Outpatient R PRUDENCE FLORES [facility] [id number] [facility] 2023-06-22 10:25:30 2023-06-22 23:59:00 Hospital Encounter Prudence Flores [facility] 1.2840.114 350.1.13.10 4.2.7.2.686 [id number] [facility] 2023-06-22 00:00:00 2023-06-22 00:00:00 Orders Only Doctor Unassigned, Angelica [facility] 1.2840.114 350.1.13.10 4.2.7.2.686 [id number] [facility] 2023-06-20 08:15:00 2023-06-20 08:15:00 Outpatient DANYELLE JOHNSON EMILY [facility] [id number] [facility] 2023-06-19 16:00:00 2023-06-19 16:00:00 Outpatient CHRIS ALFONSO LUCAS [facility] [id number] [facility] 2023-06-15 00:00:00 2023-06-15 00:00:00 Telephone Chris Linder [facility] 1.2.840.114 350.1.13.10 4.2.7.2.686 [id number] [id number] [facility] 2023-06-05 00:00:00 2023-06-05 00:00:00 Patient Secure Msg Doctor Unassigned, Angelica [facility] 1.2.840.114 350.1.13.10 4.2.7.2.686 [id number] [facility] 2023-05-22 00:00:00 2023-05-22 00:00:00 Patient Secure Msg Doctor Unassigned, Angelica [facility] 1.2.840.114 350.1.13.10 4.2.7.2.686 [id number] [id number] [facility] 2023-05-21 00:00:00 2023-05-21 00:00:00 Telephone Prudence Flores [facility] 1.2.840.114 350.1.13.10 4.2.7.2.686 [id number] 044 [id number] [facility] 2023-05-15 00:00:00 2023-05-15 00:00:00 Telephone Prudence Flores [facility] 1.2.840.114 350.1.13.10 4.2.7.2.686 [id number] [id number] [facility] 2023-05-04 12:04:03 2023-05-04 23:59:00 Outpatient R PRUDENCE FLORES [facility] [id number] [facility] 2023-05-04 12:04:03 2023-05-04 23:59:00 Hospital Encounter Prudence Flores [facility] 1.84.114 350.1.13.10 4.2.7.2.686 [id number] [facility] 2023-05-03 10:00:00 2023-05-03 10:35:50 Outpatient R PRUDENCE FLORES [facility] [id number] [facility] 2023-05-03 10:00:00 2023-05-03 10:35:50 Office Visit Prudence Flores [facility] 1.84.114 350.1.13.10 4.2.7.2.686 [id number] [facility] 2023-05-02 00:00:00 2023-05-02 00:00:00 Telephone Chris Linder [facility] 1..114 350.1.13.10 4.2.7.2.686 [id number] 089 [id number] [facility] 2023-04-02 11:40:20 2023-04-02 11:40:20 Outpatient SFA [facility] 0821 Octavio F Riky 2023-04-02 00:00:00 2023-04-02 00:00:00 Outpatient MCKENZIE BARAHONA [facility] [id number] [facility] 2023-03-30 00:00:00 2023-03-30 00:00:00 Outpatient [id number] 60 Epic 2023-03-27 00:00:00 2023-03-27 00:00:00 Patient Secure Msg Doctor Unassigned, Angelica [facility] 1.84.114 350.1.13.10 4.2.7.2.686 [id number] [facility] 2023-03-20 00:00:00 2023-03-20 00:00:00 Telephone KailashChris goldman [facility] 1.2.840.114 350.1.13.10 4.2.7.2.686 [id number] [id number] [facility] 2023-03-19 14:15:00 2023-03-19 14:30:00 Rackman Visit Pob, Adc Lab Main Chris Linder [facility] 1.2.840.114 350.1.13.10 4.2.7.2.686 [id number] [facility] 2023-03-19 14:15:00 2023-03-19 14:15:00 Outpatient CHRIS ALFONSO [facility] [id number] [facility] 2023-03-01 00:00:00 2023-03-01 00:00:00 Outpatient MCKENZIE BARAHONA [facility] [id number] [facility] 2023-02-16 16:00:00 2023-02-16 16:30:00 Office Visit KailashChris licona [facility] 1.2.840.114 350.1.13.10 4.2.7.2.686 [id number] [id number] [facility] 2023-02-16 16:00:00 2023-02-16 16:00:00 Outpatient CHRIS ALFONSO [facility] [id number] [facility] 2023-02-16 00:00:00 2023-02-16 00:00:00 Refill KailashChris licona [facility] 1..840.114 350.1.13.10 4.2.7.2.686 [id number] [id number] [facility] 2023-02-15 00:00:00 2023-02-15 00:00:00 Outpatient [id number] [place] 2023-02-07 00:00:00 2023-02-07 00:00:00 Refjimbo Linder [facility] 1.2840.114 350.1.13.10 4.2.7.2.686 [id number] [id number] [facility] 2023-02-02 00:00:00 2023-02-02 00:00:00 Refill Kailash [facility] 1.840.114 350.1.13.10 4.2.7.2.686 [id number] [id number] [facility] 2023-01-17 00:00:00 2023-01-17 00:00:00 Refjimbo Linder [facility] 1.2840.114 350.1.13.10 4.2.7.2.686 [id number] [id number] [facility] 2023-01-11 05:41:04 2023-01-11 23:59:00 Hospital Encounter Mckenzie Archer [facility] 1..114 350.1.13.10 4.2.7.2.686 [id number] [facility] 2022-10-31 13:30:00 2022-10-31 13:30:00 Outpatient CHRIS ALFONSO LUCAS [facility] [id number] [facility] 2022-08-09 00:00:00 2022-08-09 00:00:00 Patient Secure Msg Doctor Unassigned, Angelica [facility] 1..114 350.1.13.10 4.2.7.2.686 [id number] [facility] 2022-07-19 00:00:00 2022-07-19 00:00:00 Telephone Danyelle Montalvo [facility] 1..114 350.1.13.10 4.2.7.2.686 [id number] [facility] 2022-07-17 00:00:00 2022-07-17 00:00:00 Telephone Danyelle Montalvo [facility] 1.2840.114 350.1.13.10 4.2.7.2.686 [id number] [facility] 2022-06-26 14:00:00 2022-06-26 14:00:00 Outpatient R MCKINLEY MONTERO [facility] [id number] [facility] 2022-06-26 14:00:00 2022-06-26 14:00:00 Outpatient R [facility] [id number] [facility] 2022-06-22 00:00:00 2022-06-22 00:00:00 Patient Secure Msg Doctor Unassigned, Angelica [facility] 1.840.114 350.1.13.10 4.2.7.2.686 [id number] [facility] 2022-06-21 00:00:00 2022-06-21 00:00:00 Patient Secure Msg Doctor Unassigned, Angelica [facility] 1.2.840.114 350.1.13.10 4.2.7.2.686 [id number] [facility] 2022-06-20 11:45:00 2022-06-20 12:00:00 Rackman Visit [facility] Danyelle Montalvo [facility] 1..840.114 350.1.13.10 4.2.7.2.686 [id number] [facility] 2022-06-20 11:45:00 2022-06-20 11:45:00 Outpatient R DANYELLE MONTALVO EMILY [facility] [id number] [facility] 2022-06-20 09:30:00 2022-06-20 10:10:31 Office Visit Danyelle Montalvo [facility] 1..114 350.1.13.10 4.2.7.2.686 [id number] [facility] 2022-06-20 00:00:00 2022-06-20 00:00:00 Orders Only Doctor Unassigned, Angelica [facility] 1..114 350.1.13.10 4.2.7.2.686 [id number] [facility] 2022-06-12 00:00:00 2022-06-12 00:00:00 Patient Secure Msg Doctor Unassigned, Angelica [facility] 1..114 350.1.13.10 4.2.7.2.686 [id number] [facility] 2022-05-26 00:00:00 2022-05-26 00:00:00 Telephone Sharon Steiner [facility] 1..114 350.1.13.10 4.2.7.2.686 [id number] [facility] 2022-05-15 00:00:00 2022-05-15 00:00:00 Outpatient CHRIS ALFONSO LUCAS [facility] [id number] [facility] 2022-05-09 14:30:00 2022-05-09 14:30:00 Outpatient ESTEVAN DURBIN [facility] [id number] [facility] 2022-05-09 00:00:00 2022-05-09 00:00:00 Letter (Out) Thierno Wade [facility] 1..114 350.1.13.10 4.2.7.2.686 [id number] [facility] 2022-05-05 00:00:00 2022-05-05 00:00:00 Letter (Out) Thierno Wade [facility] 1.2.840.114 350.1.13.10 4.2.7.2.686 [id number] [facility] 2022-05-03 00:00:00 2022-05-03 00:00:00 Telephone Chris Linder [facility] 1.2840.114 350.1.13.10 4.2.7.2.686 [id number] [id number] [facility] 2022-05-02 16:00:00 2022-05-02 16:30:00 Office Visit Kailash [facility] 1.2840.114 350.1.13.10 4.2.7.2.686 [id number] [facility] 2022-05-02 16:00:00 2022-05-02 16:00:00 Outpatient CHRIS ALFONSO [facility] [id number] [facility] 2022-04-24 09:00:00 2022-04-24 09:00:00 Outpatient ESTEVAN DURBIN [facility] [id number] [facility] 2022-04-21 00:00:00 2022-04-21 00:00:00 Letter (Out) Theresa Hays [facility] 1..840.114 350.1.13.10 4.2.7.2.686 [id number] [facility] 2022-04-20 11:00:00 2022-04-20 11:00:00 Outpatient DARIA LEE [facility] [id number] [facility] 2022-04-18 14:30:00 2022-04-18 14:30:00 Outpatient CHRIS ALFONSO [facility] [id number] [facility] 2022-04-07 10:10:00 2022-04-07 10:10:00 Outpatient ELENA TINOCO KENDALL [facility] [id number] [facility] 2022-04-04 13:00:00 2022-04-04 13:00:00 Outpatient CHRIS ALOFNSO LUCAS [facility] [id number] [facility] 2022-03-29 08:20:00 2022-03-29 08:20:00 Outpatient RENNY SAUER [facility] [id number] [facility] 2022-03-06 10:30:00 2022-03-06 10:30:00 Outpatient ESTEVAN DURBIN [facility] [id number] [facility] 2022-01-25 00:00:00 2022-01-25 00:00:00 hCris Carranza [facility] ..114 350.1.13.10 4.2.7.2.686 [id number] [facility] 2022-01-23 00:00:00 2022-01-23 00:00:00 Chris Carranza [facility] 1..114 350.1.13.10 4.2.7.2.686 [id number] [facility] 2022-01-15 00:00:00 2022-01-15 00:00:00 Orders Only Doctor Unassigned, Angelica [facility] 1..114 350.1.13.10 4.2.7.2.686 [id number] [facility] 2021-12-07 00:00:00 2021-12-07 00:00:00 Telephone [facility] 1..114 350.1.13.10 4.2.7.2.686 [id number] [facility] 2021-10-20 00:00:00 2021-10-20 00:00:00 Telephone Kailash [facility] 1.2.840.114 350.1.13.10 4.2.7.2.686 [id number] [facility] 2021-10-18 16:45:00 2021-10-18 16:45:00 Rackman Visit [facility] 1.2.840.114 350.1.13.10 4.2.7.2.686 [id number] [facility] 2021-10-18 15:30:00 2021-10-18 16:03:04 [facility] 1.2.840.114 350.1.13.10 4.2.7.2.686 [id number] [id number] [facility] 2021-10-18 15:30:00 2021-10-18 16:03:04 Outpatient CHRIS ALFONSO CHRIS [facility] [id number] [facility] 2021-10-18 16:00:00 2021-10-18 16:00:00 Outpatient CHRIS ALFONSO CHRIS [facility] [id number] [facility] 2021-10-18 11:40:00 2021-10-18 11:40:00 Outpatient KEIKO EVERETT [facility] [id number] [facility] 2021-10-06 00:00:00 2021-10-06 00:00:00 Refill Kailash [facility] 1.2840.114 350.1.13.10 4.2.7.2.686 [id number] [facility] 2021-09-22 10:30:00 2021-09-22 10:30:00 Outpatient ESTEVAN DURBIN [facility] [id number] [facility] 2021-09-22 10:30:00 2021-09-22 10:30:00 Outpatient Mia CORINNE ESTEVAN [facility] [id number] [facility] 2021-09-21 00:00:00 2021-09-21 00:00:00 Orders Only Doctor Unassigned, Angelica [facility] 1.84.114 350.1.13.10 4.2.7.2.686 [id number] [facility] 2021-08-22 00:00:00 2021-08-22 00:00:00 Outpatient CHRIS ALFONSO CHRIS [facility] [id number] [facility] 2021-08-22 00:00:00 2021-08-22 00:00:00 Outpatient CHRIS ALFONSO LUCAS [facility] [id number] [facility] 2021-07-12 15:30:00 2021-07-12 15:30:00 Outpatient R [facility] [id number] [facility] 2021-07-12 15:30:00 2021-07-12 15:30:00 Outpatient R [facility] [id number] [facility] 2021-07-01 00:00:00 2021-07-01 00:00:00 Telephone Chris Linder [facility] 1..114 350.1.13.10 4.2.7.2.686 [id number] [facility] 2021-06-14 16:09:17 2021-06-14 16:24:17 Rackman Visit [facility] Chris Linder [facility] 1..114 350.1.13.10 4.2.7.2.686 [id number] [facility] 2021-06-14 16:04:16 2021-06-14 16:14:16 Imm/Inj Visit Vaccine, Gal [facility] Chris Linder [facility] 1.2.840.114 350.1.13.10 4.2.7.2.686 [id number] [facility] 2021-06-14 15:14:56 2021-06-14 15:44:56 Office Visit KailashChris licona [facility] 1.2840.114 350.1.13.10 4.2.7.2.686 [id number] [facility] 2021-06-14 15:30:00 2021-06-14 15:30:00 Outpatient R CHRIS LINDER [facility] [id number] [facility] 2021-06-14 15:30:00 2021-06-14 15:30:00 Outpatient R CHRIS LINDER [facility] [id number] [facility] 2021-05-28 00:00:00 2021-05-28 00:00:00 Refill Kailash, [facility] 1.2840.114 350.1.13.10 4.2.7.2.686 [id number] [facility] 2021-05-11 15:15:00 2021-05-11 15:15:00 Outpatient Mia SUN [facility] [id number] [facility] 2021-05-09 14:00:00 2021-05-09 14:00:00 Outpatient R CORINNE [facility] [id number] [facility] 2021-04-28 00:00:00 2021-04-28 00:00:00 [facility] 1.2.840.114 350.1.13.10 4.2.7.2.686 [id number] [facility] 2021-04-25 08:45:00 2021-04-25 08:45:00 Outpatient R SELF, JERO [facility] [id number] [facility] 2021-04-19 00:00:00 2021-04-19 00:00:00 Telephone KailashChris licona 1.2.840.1 [id number] 3.104.2.7 [id number] [facility] 2021-04-11 08:45:00 2021-04-11 08:45:00 Outpatient JERO HUANG [facility] [id number] [facility] 2021-03-16 08:45:00 2021-03-16 08:45:00 Outpatient MORRIS MARIE [facility] [id number] [facility] 2021-03-16 00:00:00 2021-03-16 00:00:00 Refill Chris Linder 1.2.840.1 [id number] 3.104.2.7 [id number] [facility] 2020-12-27 14:30:00 2020-12-27 14:30:00 Outpatient MORRIS MARIE [facility] [id number] [facility] 2020-12-15 15:15:00 2020-12-15 15:15:00 Outpatient OCTAVIO WEBB [facility] [id number] [facility] 2020-12-07 15:07:29 2020-12-07 15:40:28 Rackman Visit [facility] KailashChris [facility] 1..114 350.1.13.10 4.2.7.2.686 [id number] [facility] 2020-12-07 14:03:43 2020-12-07 15:00:48 Office Visit Kailash Chris [facility] 1.0.114 350.1.13.10 4.2.7.2.686 [id number] [facility] 2020-12-07 14:03:43 2020-12-07 15:00:48 Office Visit Chris Linder [facility] 1.2.840.114 350.1.13.10 4.2.7.2.686 [id number] 2020-12-07 14:30:00 2020-12-07 14:30:00 Outpatient CHRIS ALFONSO [facility] [id number] [facility] 2020-11-23 13:00:00 2020-11-23 13:00:00 Outpatient CHRIS ALFONSO [facility] [id number] [facility] 2020-11-12 00:00:00 2020-11-12 00:00:00 Refill Kailash [facility] 1..840.114 350.1.13.10 4.2.7.2.686 [id number] [facility] 2020-09-27 13:45:00 2020-09-27 13:45:00 Outpatient MORRIS MARIE [facility] [id number] [facility] 2020-09-14 00:00:00 2020-09-14 00:00:00 Refill Kailash [facility] 1..840.114 350.1.13.10 4.2.7.2.686 [id number] [facility] 2020-09-13 00:00:00 2020-09-13 00:00:00 Refjimbo Linder [facility] 1.2.840.114 350.1.13.10 4.2.7.2.686 [id number] [facility] 2020-09-07 13:30:00 2020-09-07 13:30:00 Outpatient CHRIS ALFONSO LUCAS [facility] [id number] [facility] 2020-08-26 00:00:00 2020-08-26 00:00:00 Telephone Kailash Chris [facility] 1.2.840.114 350.1.13.10 4.2.7.2.686 [id number] [facility] 2020-08-26 00:00:00 2020-08-26 00:00:00 [facility].114 350.1.13.10 4.2.7.2.686 [id number] [facility] 2020-08-19 00:00:00 2020-08-19 00:00:00 Telephone Kailash [facility] 1.2.840.114 350.1.13.10 4.2.7.2.686 [id number] [facility] 2020-08-09 08:00:00 2020-08-09 08:00:00 [id number] 2020-08-09 08:00:00 2020-08-09 08:00:00 Outpatient R SELF [facility] [id number] [facility] 2020-07-13 15:15:00 2020-07-13 14:49:18 Outpatient R CHRIS LINDER LUCAS [facility] [id number] [facility] 2020-07-13 14:39:02 2020-07-13 14:49:18 Rackman Visit c-Lab Kailash Chris [facility] 1.2.840.114 350.1.13.10 4.2.7.2.686 [id number] [facility] 2020-07-13 13:51:20 2020-07-13 14:21:20 Office Visit Chris Linder [facility] 1.2.840.114 350.1.13.10 4.2.7.2.686 [id number] [facility] 2020-07-13 14:00:00 2020-07-13 14:00:00 Outpatient CHRIS ALFONSO LUCAS [facility] [id number] [facility] 2020-07-12 08:00:00 2020-07-12 08:00:00 Outpatient JERO HUANG [facility] [id number] [facility] 2020-07-12 00:00:00 2020-07-12 00:00:00 Orders Only Doctor Unassigned, Angelica 1.2.840.1 [id number] 3.104.2.7 .3.589762 .8 [id number] [facility] 2020-07-07 00:00:00 2020-07-07 00:00:00 Travel 1.2.840.1 [id number] 3.104.2.7 .3.889074 .8 1.2.840.114 350.1.13.10 4.2.7.3.698 [id number] [facility] 2020-06-29 15:00:00 2020-06-29 15:00:00 Outpatient CHRIS ALFONSO LUCAS [facility] [id number] [facility] 2020-06-24 00:00:00 2020-06-24 00:00:00 Chris Carranza 1.2.840.1 [id number] 3.104.2.7 .3.153617 .8 [id number] [facility] 2020-06-01 13:00:00 2020-06-01 13:00:00 Outpatient CHRIS ALFONSO LUCAS [facility] [id number] [facility] 2020-05-14 09:15:00 2020-05-14 09:15:00 Outpatient ESTEVAN DURBIN [facility] [id number] [facility] 2020-05-06 13:45:00 2020-05-06 13:45:00 Outpatient ESTEVAN DURBIN [facility] [id number] [facility] 2020-03-20 00:00:00 2020-03-20 00:00:00 Refill Chris Linder [facility] 1..840.114 350.1.13.10 4.2.7.2.686 [id number] [facility] 2020-03-08 09:30:00 2020-03-08 09:30:00 Outpatient Mia CLAUDIO JERO [facility] [id number] [facility] 2020-02-24 15:00:00 2020-02-24 15:00:00 Outpatient R CHRIS LINDER [facility] [id number] [facility] 2020-02-24 07:45:48 2020-02-24 08:15:48 Telemedici ne Visit Chris Linder [facility] 1.840.114 350.1.13.10 4.2.7.2.686 [id number] [facility] 2020-02-09 09:30:00 2020-02-09 09:30:00 Outpatient Mia CLAUDIO JERO [facility] [id number] [facility] 2020-01-26 11:00:00 2020-01-26 11:00:00 Outpatient SUZANNE TOLBERT [facility] [id number] [facility] 2020-01-23 00:00:00 2020-01-23 00:00:00 Telephone Chris Linder [facility] 1..840.114 350.1.13.10 4.2.7.2.686 [id number] [facility] 2019-12-23 15:00:00 2019-12-23 15:00:00 Outpatient CHRIS ALFONSO CHRIS [facility] [id number] [facility] 2019-12-15 00:00:00 2019-12-15 00:00:00 Telephone Kailash Chris Toney [facility] 1.2.840.114 350.1.13.10 4.2.7.2.686 [id number] [facility] 2019-11-24 13:00:00 2019-11-24 13:00:00 Outpatient SUZANNE TOLBERT [facility] [id number] [facility] 2019-11-14 13:30:00 2019-11-14 13:30:00 Outpatient SALLIE MORGAN [facility] [id number] [facility] 2019-10-30 00:00:00 2019-10-30 00:00:00 Telephone Chris Linder 1..840.1 [id number] 3.104.2.7 .3.104986 .8 [id number] [facility] 2019-10-14 15:00:00 2019-10-14 15:00:00 Outpatient CHRIS ALFONSO LUCAS [facility] [id number] [facility] 2019-08-25 00:00:00 2019-08-25 00:00:00 Case Management Faby Cabrera 1.2.840.1 [id number] 3.104.2.7 .3.282985 .8 [id number] [facility] 2019-06-30 16:00:00 2019-06-30 16:51:32 Outpatient Mia BADILLO SUZANNE [facility] [id number] [facility] 2019-06-30 00:00:00 2019-06-30 00:00:00 Orders Only Doctor Unassigned, Angelica 1.2.840.1 33916.1.1 3.104.2.7 .3.661157 .8 [id number] [facility] 2019-05-06 00:00:00 2019-05-06 00:00:00 Telephone IrmaMckinley hardwick Rober 1.2.840.1 34588.1.1 3.104.2.7 .3.315316 .8 [id number] [facility] 2019-05-01 08:05:43 2019-05-01 09:14:20 Office Visit [facility]anelis [facility]L eep, [facility] 1.2.840.1 [id number] 3.104.2.7 .3.355598 .8 [id number] [facility] 2019-05-01 00:00:00 2019-05-01 00:00:00 Orders Only Doctor Unassigned, Angelica 1.2.840.1 40901.1.1 3.104.2.7 .3.660598 .8 [id number] [facility] 2019-04-29 00:00:00 2019-04-29 00:00:00 Telephone Best Morelos 1.2.840.1 44497.1.1 3.104.2.7 .3.967650 .8 [id number] [facility] 2019-04-15 10:45:00 2019-04-15 10:45:00 Hospital Encounter Chris Linder 1.2.840.1 26772.1.1 3.104.2.7 .3.715640 .8 [id number] [facility] 2019-04-15 00:00:00 2019-04-15 00:00:00 Outpatient R CHRIS LINDER LUCAS [facility] [id number] [facility] 2019-04-15 00:00:00 2019-04-15 00:00:00 Telephone [place] 1.2.840.1 82332.1.1 3.104.2.7 .3.745819 .8 [id number] [facility] 2019-04-15 00:00:00 2019-04-15 00:00:00 Refill Chris Linder 1.2.840.1 25169.1.1 3.104.2.7 .3.238094 .8 [id number] [facility] 2019-04-12 00:00:00 2019-04-12 00:00:00 Refill Chris Linder 1.2.840.1 75045.1.1 3.104.2.7 .3.549529 .8 [id number] [facility] 2019-03-28 00:00:00 2019-03-28 00:00:00 Telephone Best Morelos [facility] 1.2.840.114 350.1.13.10 4.2.7.2.686 [id number] [facility] 2019-01-13 00:00:00 2019-01-13 23:59:00 Outpatient THERESA DACOSTA [facility] [id number] [facility] Results Test Description Test Time Test Comments Results Result Co mments Source CULTURE, URINE 2023-04-05 11:33:03 SPECIMEN NUMBER: [id number] CULTURE, URINE SPECIMEN NUMBER: [id number] SPECIMEN COMMENT: URINE SOURCE: URINE REPORT STATUS: [...] TESTING PERFORMED AT [facility] [address] [place] [address] DIVERSITY MANAGER: Phani OWENS NUMBER [id number] [facility] [place]. [id number] Octavio Lan Notes Date/Time Note Provider Source 2024-06-23 08:19:02 Pt has the soonest available appt with provider and Dr. Linder is only an afternoon clinic. [address] Oseas [facility] 17:12:04 Ermelinda Talbot is a 49 year old female Patient is calling to schedule appt First available is for 07/22/24 I also placed om high priority waiting patient is needing a sooner appt Patient states she prefers morning appt Please advise [phone] (home) [facility]/pharmacy #[id number] AT [facility] Danica [facility] HospitalUmciir5633-61-48 10:55:43 Called pt and lvm stating to call clinic back when ready to reschedule. 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 Please advise [address] Steph LuGenesis HospitalGeqhbb4056-26-57 14:21:06 Received 05/15/24 refill request for: Medication: Requested Prescriptions Pending Prescriptions Disp Refills giuvkoo-tel-kmbte-tenof ALAFEN (GENVOYA) [phone] mg per tablet 90 tablet 1 Sig: Take 1 tablet by mouth every morning. Please call [phone] to schedule a follow up appointment. Thank you Last filled: 12/12/23 Follow up scheduled for : 06/10/24 Last office visit: 02/16/23 Refilled approval sent to: Pharmacy: [facility]/pharmacy #[id number] [address] Refilled per ID Guidelines [facility]Yoheds7857-03-69 13:07:50 Ermelinda Talbot is a 48 year old female Pt calling asking for a refill twjdsju-ijz-puefc-tenof ALAFEN (GENVOYA) [phone] mg per tablet She is scheduled to see Dr. Linder on Jun 10 Pt has a cough, asking for cough medication [facility]/pharmacy #[id number] Rena CotterGenesis HospitalIlgrcu2710-58-73 16:26:05 Sent patient a Skinny Momt message. Joie Butcher RNGenesis HospitalLpujgy8351-47-13 14:18:48 Thank you, Dr. Linder. I tried reaching patient, no answer. Left message for patient to call me back. [facility] HospitalKfunvs4205-62-39 13:52:01 I have not seen the patient [...] mental health provider for further refills though. [facility]2024-08-15 13:47:44 Sorry, I am unable to refill. [...] if the medication is still even indicated. [place] 212084-08-15 13:26:35 Please see patients pharmacy requesting a quantity change from 30 days to 90 days, and advise, thank you. Joie Hennessy [facility]2024-08-15 08:47:31 Dr. Linder, Please advise on refill request. Thank you REFILL Provider: Dr. Linder Patient's phone number: [phone] (home) Pharmacy: [facility] Medication: Tramadol Strength: 50 mg Directions: take 1 tablet po q 8 hours prn pain Quantity: #90 last written 01/22/24 Last filled: 01/28/24 for #90 Last office visit: 02/16/23 Next office visit: 04/01/24 [facility] HospitalJtuxnp8122-95-34 08:33:02 Ermelinda Talbot is a 48 year old female Pt is requesting refill for TRAMADOL 50 mg tablet,pt scheduled 04-01-24 Thank you Vadim HaleGenesis HospitalTwugoi2057-86-48 08:53:46 Pt needs dc for refills Julian Reece MAJames [place]ille 474864-07-19 14:39:59 Pt needs dc for refils [facility] 09:33:37 REFILL (Requires review before approval) Provider: Chris Linder MD Patient's phone number: [phone] (home) [facility] [place] [address] Medication: traMADoL (ULTRAM) Strength: 50 mg tablet Directions: TAKE 1 TABLET BY MOUTH EVERY 8 HOURS NEEDED FOR PAIN INDICATIONS: CHRONIC PAIN Quantity: 90 Tablets with ZERO Refills Last filled: 12/26/2023 Last office visit: 02/16/2023 Next scheduled visit: No future visits are scheduled. Joie Hennessy [facility]2024-05-15 15:29:13 REFILL (Requires review before approval) Provider: Chris Linder MD Patient's phone number: [phone] (home) Pharmacy: [facility]/pharmacy #[address] [place] [address] [place] - [address] AT [facility] Medication: traMADoL (ULTRAM) Strength: 50 mg tablet Directions: TAKE 1 TABLET BY MOUTH EVERY 8 HOURS NEEDED FOR PAIN INDICATIONS: CHRONIC PAIN Quantity: 90 Tablets with 2 Refills Last filled: Unknown Last office visit: 02/16/2023 Next scheduled visit: No future ID visits are scheduled. Joie Hennessy [facility] - Xfetsi4925-57-45 10:36:19 REFILL Provider: Dr. Linder Patient's phone number: [phone] (home) Pharmacy: [address] Medication: Genvoya Strength: [phone] mg Directions: take 1 tab po daily Quantity: #30 with 5 refills last written 02/16/23 Last filled: unknown Last office visit: 02/16/23 Next office visit: not scheduled. Reminder sent to patient to call office to schedule a follow up appointment. Refilled per ID protocol guidelines to pharmacy above. Joie Butcher [facility] Ldpnxr3376-33-10 11:51:44 Recent Visits Date Type Provider Dept 05/03/23 Office Visit Prudence Flores MD [facility] Fam Med 06/20/22 Office Visit Danyelle Montalvo, [facility] Showing recent visits within past 540 days with a meds authorizing provider and meeting all other requirements Future Appointments Date Type Provider Dept 11/30/23 Appointment Prudence Flores MD [facility] Med Showing future appointments within next 150 days with a meds authorizing provider and meeting all other requirements Last refill was BENZONATATE 100 mg capsule 60 capsule 0 10/16/2023 -- No Sig: TAKE 1 CAPSULE BY MOUTH EVERY 6 HOURS NEEDED FOR COUGH. Sent to pharmacy as: benzonatate 100 mg capsule (TESSALNILSA PERLFERN) Class: eRX Katrina Rosa [facility]Tsrugd6992-95-34 13:07:42 Images from the original note were [...] Flores MD Last refill: 09/21/2023 Rx #: [id number] Provider Review Required Ijsgeh1910/15/2023 11:25 AM Protocol Details This refill cannot be delegated Valid encounter within last 12 months To be filled at: [facility]/pharmacy #[id number] - [place], [place] - [address] [place] [address] Recent Visits Date Type Provider Dept 05/03/23 Office Visit Prudence Flores MD [facility] 06/20/22 Office Visit Danyelle Montalvo, [facility] Showing recent visits within past 540 days with a meds authorizing provider and meeting all other requirements Future Appointments Date Type Provider Dept 11/01/23 Appointment Prudence Flores MD [facility] Showing future appointments within next 150 days with a meds authorizing provider and meeting all other requirements Joy [facility]2024-02-08 14:02:56 Images from the original note were [...] Flores MD Last refill: 05/03/2023 Rx #: [id number] Provider Review Required Bhfnoc9609/20/2023 12:04 PM Protocol Details This refill cannot be delegated Valid encounter within last 12 months To be filled at: [facility]/pharmacy #[id number] Recent Visits Date Type Provider Dept 05/03/23 Office Visit Prudence Flores MD [facility] 06/20/22 Office Visit Danyelle Montalvo, [facility] Showing recent visits within past 540 days with a meds authorizing provider and meeting all other requirements Future Appointments Date Type Provider Dept 11/01/23 Appointment Prudence Flores MD [facility] Showing future appointments within next 150 days with a meds authorizing provider and meeting all other requirements [address] Trista Pierre [facility]xtnuu5844-76-98 13:42:22 [facility] website reviewed. No discrepancies in prescribing noted. ERx sent. [facility]2024-02-08 10:03:27 REFILL (Requires approval) Provider: Chris Linder MD Patient's phone number: [phone] (home) Pharmacy: [facility]/pharmacy #[id number] Medication: traMADoL (ULTRAM) Strength: 50 mg tablet Directions: TAKE 1 TABLET BY MOUTH EVERY 8 HOURS NEEDED FOR PAIN Indications: chronic pain Quantity: 90 Tablets with 2 Refills Last filled: Unknown Last office visit: 02/16/2023 Next scheduled visit: No future ID visits are scheduled. [address] Joie Hennessy [facility]2024-01-19 15:56:45 Patient requesting for MRI report be sent to [facility] Pain management dept and information was faxed to [phone] on 08/31/2023. [facility]2024-01-19 11:22:52 Ermelinda Talbot is a 48 year old female Pt is calling in reference to [facility] pain management wanting to more information about her Mri results states [facility] needing more information regarding the results Please advise Thank you [address] Kelvin CampaGenesis HospitalQpvcue5234-05-94 09:18:[address] Linder's clinic folder. Joie Butcher [facility] Hospital[facility]ygalm6414-45-95 15:00:31 Ermelinda Talbot is a 47 year old female patient calling needs status letter and blood work sent to her dental provider: Sylvester Tatum [facility] @ fax # [phone] Has 9:00AM appointment 03/21/23 [facility]owellXznzmn7045-76-20 14:15:00 Images from the original note were not included. Venipuncture collection performed by clean technique on the left wrist. Total of 1 attempts were made. Slight pressure and a bandage/dressing were applied to the site(s). The patient experienced no complications. The following specimens were processed according to instructions and sent to [facility] laboratories per lab order on 03/19/2023: LT BLUE SST 2 RED LAV 2 PPT 1 DK GREEN (LiHep) 2 DK GREEN (SodH) CORNELL DK BLUE (K2) DK BLUE (S) ACD Blood Culture NIPT/NTD [facility] HospitalMuzrgx2500-39-94 14:15:00 Pt was not fasting for blood draw will come back for Lipid Panel. T [facility]
[2024-10-16 12:09] LABS: Influenza A Ag Negative; Influenza B Ag Negative; SARS-CoV-2 Antigen Rapid Res Negative (Negative)
--- NOTE | 2024-10-16 12:39 | EDPHYS ---
Physician Documentation [facility] Name: Tianna Costello Age: 49 yrs Sex: Female : 1975 Arrival Date: 10/16/2024 Time: 10:38 Bed DIS1 Private MD: ED Physician Jad Liu HPI: 10/16 14:50 This 49 yrs old Black Female presents to ER via Ambulatory with complaints of cough. rt 14:50 Patient presents to the ED with cough, congestion for about 3 days. Developed a rt headache today. Denies other acute complaints this time, symptoms are mild in severity, no other aggravating relieving factors.. Historical: - Allergies: 11:40 PENICILLINS; hb - PMHx: 11:40 Anxiety; Asthma; HIV positive; hb - PSHx: 11:40 section; hb - Immunization history:: Adult Immunizations up to date. - Infectious Disease History:: Denies. - Social history:: Smoking status: Patient denies any tobacco usage or history of. - Family history:: not pertinent. ROS: 14:50 Constitutional: Negative for fever, chills, and weight loss, Abdomen/GI: Negative for rt abdominal pain, nausea, vomiting, diarrhea, and constipation, MS/Extremity: Negative for injury and deformity, Skin: Negative for injury, rash, and discoloration, 14:50 ENT: Positive for rhinorrhea, 14:50 Respiratory: Positive for cough, Negative for shortness of breath, 14:50 Neuro: Positive for headache, Negative for dizziness, Exam: 14:50 Constitutional: This is a well developed, well nourished patient who is awake, alert, rt and in no acute distress. Head/Face: Normocephalic, atraumatic. ENT: Nares patent. No nasal discharge, no septal abnormalities noted. Tympanic membranes are normal and external auditory canals are clear. Oropharynx with no redness, swelling, or masses, exudates, or evidence of obstruction, uvula midline. Mucous membranes moist. Chest/axilla: Normal chest wall appearance and motion. Nontender with no deformity. No lesions are appreciated. Cardiovascular: Regular rate and rhythm with a normal S1 and S2. No gallops, murmurs, or rubs. Normal PMI, no JVD. No pulse deficits. Respiratory: Lungs have equal breath sounds bilaterally, clear to auscultation and percussion. No rales, rhonchi or wheezes noted. No increased work of breathing, no retractions or nasal flaring. Abdomen/GI: Soft, non-tender, with normal bowel sounds. No distension or tympany. No guarding or rebound. No evidence of tenderness throughout. Skin: Warm, dry with normal turgor. Normal color with no rashes, no lesions, and no evidence of cellulitis. MS/ Extremity: Pulses equal, no cyanosis. Neurovascular intact. Full, normal range of motion. Neuro: Awake and alert, GCS 15, oriented to person, place, time, and situation. Cranial nerves II-XII grossly intact. Motor strength 5/5 in all extremities. Sensory grossly intact. Cerebellar exam normal. Normal gait. Vital Signs: 11:39 BP 151 / 87; Pulse 68; Resp 16; Temp 98.2; Pulse Ox 100% ; Weight 75.75 kg; Height 5 hb ft. 7 in. ; Pain 8/10; 11:39 Body Mass Index 26.16 (75.75 kg, 170.18 cm) hb 11:39 Pain Scale: Adult hb MDM: 11:39 Medical Screening Exam initiated rt 14:50 Differential Diagnosis Flu, COVID, viral syndrome. Data reviewed: vital signs, nurses rt notes, lab test result(s). Test considered but Not performed: Other Details Low suspicion for pneumonia, x-ray is not indicated. Suspect headache is secondary to viral syndrome, do not believe that CT of the head is indicated.. Care significantly affected by the following chronic conditions: HIV. Counseling: I had a detailed discussion with the patient and/or guardian regarding the historical points, exam findings, and any diagnostic results supporting the discharge/admit diagnosis, lab results, the need for outpatient follow up, to return to the emergency department if symptoms worsen or persist or if there are any questions or concerns that arise at home. Response to treatment: the patient's symptoms have markedly improved after treatment. 10/16 11:31 Order name: COVID-19 Ag + Flu A+B Ag; Complete Time: 12:21 rt Administered Medications: 12:46 Not Given (Patient Refused): [id number] mg PO once iw Disposition Summary: 10/16/24 12:38 Discharge Ordered Notes: Location: Home rt Problem: new rt Symptoms: have improved rt Condition: Stable rt Diagnosis - Acute upper respiratory infection, unspecified rt Followup: rt - With: Private Physician - When: 2 - 3 days - Reason: Discharge Instructions: - Discharge Summary Sheet rt - Upper Respiratory Infection, Adult rt Forms: - Medication Reconciliation Form rt - Antibiotic Education rt - Prescription Opioid Use rt - Patient Portal Instructions rt - Leadership Thank You Letter rt - Work release form bc6 Signatures: Dispatcher [employer] Francine Peterson RN RN Jad Liu MD MD rt Li Charles RN iw
--- NOTE | 2024-10-16 12:39 | ER ---
Nurse's Notes [facility] Name: Tianna Costello Age: 49 yrs Sex: Female : 1975 Arrival Date: 10/16/2024 Time: 10:38 Bed DIS1 Private MD: Diagnosis: Acute upper respiratory infection, unspecified Presentation: 10/16 11:39 Chief complaint: Cough and congestion x 2-3 days, headache today. Coronavirus screen: hb Client presents with at least one sign or symptom that may indicate coronavirus-19. Provider contacted for isolation considerations. Ebola Screen: No symptoms or risks identified at this time. Initial Sepsis Screen: Does the patient meet any 2 criteria? No. Patient's initial sepsis screen is negative. Does the patient have a suspected source of infection? No. Patient's initial sepsis screen is negative. Risk Assessment: Do you want to hurt yourself or someone else? Patient reports no desire to harm self or others. Onset of symptoms was October 14, 2024. 11:39 Method Of Arrival: Ambulatory 11:39 Acuity: DAVID 4 hb Triage Assessment: 12:40 General: Appears in no apparent distress. Behavior is calm, cooperative. iw Historical: - Allergies: 11:40 PENICILLINS; hb - PMHx: 11:40 Anxiety; Asthma; HIV positive; hb - PSHx: 11:40 section; hb - Immunization history:: Adult Immunizations up to date. - Infectious Disease History:: Denies. - Social history:: Smoking status: Patient denies any tobacco usage or history of. - Family history:: not pertinent. Screenin:45 [facility] ED Fall Risk Assessment (Adult) History of falling in the last 3 months, iw including since admission No falls in past 3 months (0 pts) Confusion or Disorientation No (0 pts) Intoxicated or Sedated No (0 pts) Impaired Gait No (0 pts) Mobility Assist Device Used No (0 pt) Altered Elimination No (0 pt) Score/Fall Risk Level 0 - 2 = Low Risk Oriented to surroundings, Maintained a safe environment. Abuse screen: Denies threats or abuse. Denies injuries from another. Nutritional screening: No deficits noted. Tuberculosis screening: No symptoms or risk factors identified. Assessment: 12:40 General: Appears in no apparent distress. Behavior is calm, cooperative. General: iw Reports feeling ill for fatigue for. Pain: Complains of pain in head. Neuro: Level of Consciousness is awake, alert, obeys commands, Oriented to person, place, time, situation, Moves all extremities. Full function. Cardiovascular: Patient's skin is warm and dry. Respiratory: Respiratory effort is even, unlabored, Respiratory pattern is regular, symmetrical. Vital Signs: 11:39 BP 151 / 87; Pulse 68; Resp 16; Temp 98.2; Pulse Ox 100% ; Weight 75.75 kg; Height 5 hb ft. 7 in. ; Pain 8/10; 11:39 Body Mass Index 26.16 (75.75 kg, 170.18 cm) hb 11:39 Pain Scale: Adult hb ED Course: 10:45 Patient arrived in ED. iw 10:49 Jad Liu MD is Attending Physician. rt 11:40 Triage completed. hb 11:40 Arm band placed on. hb 11:40 COVID-19 Ag + Flu A+B Ag Sent. hb 12:31 Li Charles, RN is Primary Nurse. iw 12:40 Patient has correct armband on for positive identification. Provided Education on: . iw 12:45 No provider procedures requiring assistance completed. Patient did not have IV access iw during this emergency room visit. Administered Medications: 12:46 Not Given (Patient Refused): [id number] mg PO once iw Medication: 12:40 VIS not applicable for this client. iw Outcome: 12:38 Discharge ordered by . rt 12:45 Discharged to home ambulatory, iw 12:45 Condition: good 12:45 Discharge instructions given to patient, Instructed on discharge instructions, follow iw up and referral plans. Demonstrated understanding of instructions, follow-up care, 12:46 Patient left the ED. iw Signatures: Li Charles, MARIANA PEÑA Francine Perez RN RN Jad Liu MD MD rt
[2024-10-16 12:53] VITALS: BP 151/87; TEMP 98.2; O2SAT 100
== END 2024-10-16 12:46 | disposition home or self-care (01) ==
LOC: ER 10:38
DX: J06.9 Acute upper respiratory infection, unspecified (principal); Z11.52 Encounter for screening for COVID-19; Z21 Asymptomatic human immunodeficiency virus [HIV] infection status
CPT/HCPCS: 36415; 87428; 99283

== ENCOUNTER 2025-01-03 11:45 | Emergency (ER) | payer OTHER ==
--- OUTSIDE RECORDS SUMMARY | 2025-01-03 11:53 | XMS REPORT | Continuity of Care Document ---
Author Name Unknown Address [address] [place] [address] Organization [facility] [place] Address [address] [place] [address] Care Team Providers Care Freight Handler Name Role Phone Sari Fuentes Primary Care Physician [phone] SHARON STEINER Attending Clinician CHRIS Reis Attending Clinician Unavailable CHRIS LINDER Attending Clinician Unavailable Doctor Unassigned, [place] Attending Clinician U rosalind Thorne MD, Krisg Attending Clinician [phone] Chris Linder MD Attending Clinician [phone] Shruthi Brooks MA Attending Clinician Erin Pulido LVN Attending Clinician UnavailIZABEL Corona Attending Clinician DAV German Attending Clinician Unavailable DAV LIM Attending Clinician Unavailable Chris Linder MD Attending Clinician [phone] PRUDENCE FLORES Attending Clinician Prudence Valentin MD Attending Clinician Doctor Unassigned, [place] Attending Clinician U DANYELLE Denise Attending Clinician DANYELLE Young Attending Clinician MCKENZIE Serrano Attending Clinician Unavailable Pob, [facility] Attending Clinician UnavailMckenzie Carmen Attending Clinician [phone] MCKINLEY MONTERO Attending Clinician Unavail able [facility] Attending Clinician Unavailable TIFFANIE PICHARDO Attending Clinician Unavailable Sharon Steiner MD Attending Clinician [phone] ESTEVAN SUN Attending Clinician Unavailable Thierno Wade DO Attending Clinician [phone] Lis DEBRA, Theresa Aguilar Attending Clinician + DARIA HAYDEN Attending Clinician Unavailable ELENA LORA Attending Clinician UnavailELENA Calvo Attending Clinician UnavailRENNY Bañuelos Attending Clinician Unavailable Mayra Viveros MD Attending Clinician [phone] JEROME ONEIL Attending Clinician Unavailable KEIKO RODRÍGUEZ Attending Clinician Unavail able Vaccine, Gal [facility] Attending Clinician Unavailable JERO CLAUDIO Attending Clinician Unavailable MORRIS LOPEZ Attending Clinician Unavailable OCTAVIO HUANG Attending Clinician Unavail able SUZANNE BADILLO Attending Clinician UnavailSALLIE Crow Attending Clinician Unavailable Rick PEÑA, Faby Lorenzana Attending Clinician Unav Mckinley Doshi CNM Attending Clinician [phone] [facility]alo [facility] Attending Clinician [phone] Res-Colpo/Leep, [facility] Attending Clinician Un available Best Morelos RN Attending Clinician Unavailute Hall RN, Dang Woodruff Attending Clinician UnaTHERESA Rangel Attending Clinician Unavail able SHARON STEINER Admitting Clinician UnavailPRUDENCE Canales Admitting Clinician Antionette vailable Payers Payer Name Policy Type Policy Number Effective Date Expirati on Date Source [facility] DUAL COMPLETE-SNP 5 [id number] 2022 00:00:00 [facility] 6 [id number] 2019 00:00:00 [facility] D[facility] H[facility] D SNP [id number] 2022 00:00:00 [place] [id number] 2022 00:00:00 [facility] [place] STAR PL[place] [id number] 00:00:00 [facility] [place] STAR PLUS [id number] 2020 00:00:00 Problems Condition Name Condition Details Condition Category Status Onset Date Resolution Date Last Treatment Date Treating Clinician Comments Source 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 +hpv [facility] Well woman exam Well woman exam Disease Active 12-17 00:00: 00 [facility] Breast pain Breast pain Disease Active 12-17 00:00: 00 [facility] Obesity (BMI 30-39.9) Obesity (BMI 30-39.9) Disease Active 12-17 00:00: 00 [facility] AIDS AIDS Disease Active 01-19 00:00: 00 [facility] Pneumonia Pneumonia Disease Active 12-27 00:00: 00 [facility] Unspecifie d protein-ca kelsy malnutriti on Unspecifie d protein-ca kelsy malnutriti on Disease Resolve d 12-27 00:00: 00 2018-06-12 00:00:00 2018-06-12 08:51:32 [facility] Allergies, Adverse Reactions, Alerts Allergy Name Allergy Type Status Severity Reaction(s) Onset Date Inactive Date Treating Clinician Comments Source PENICILL INS Drug Class Active High Anaphylaxis 12-27 00:00: 00 [facility] Penicill ins Propensi ty to adverse reaction s to drug Active Unknown - See comments 12-27 00:00: 00 anaphylax is [facility] Penicill ins Propensi ty to adverse reaction s to drug Active Anaphylaxis 12-27 00:00: 00 anaphylax is [facility] Penicill ins Propensi ty to adverse reaction s to drug Active Anaphylaxis 12-27 00:00: 00 [facility] Penicill ins Propensi ty to adverse reaction s to drug Active Anaphylaxis 12-27 00:00: 00 anaphylax is [facility] Family History Family Member Diagnosis Comments Start Date Stop Date Sourc e Natural father Coronary Heart Disease [facility] Social History Social Habit Start Date Stop Date Quantity Comments Source History SDOH Alcohol Frequency [facility] History SDOH Alcohol Std Drinks [facility] History SDOH Alcohol Binge [facility] Sexual orientation [facility] of Social function 2024-11-25 00:00:00 2024-11-25 00:00:00 [facility] Alcoholic beverage intake 2023-05-03 00:00:00 2023-05-03 00:00:00 Current non-drinker of alcohol (finding) [facility] Cigarettes smoked current (pack per day) - Reported 2023-05-03 00:00:00 2023-05-03 00:00:00 [facility] Cigarette pack-years 2023-05-03 00:00:00 2023-05-03 00:00:00 [facility] Tobacco use and exposure 2023-05-03 00:00:00 2023-05-03 00:00:00 Smokeless tobacco non-user [facility] Alcohol intake 2023-05-03 00:00:00 2023-05-03 00:00:00 Current non-drinker of alcohol (finding) [facility] Tobacco Comment 2023-05-03 00:00:00 2023-05-03 00:00:00 Is currently smoking 2 cigarettes daily-05/03/23 [facility] Exposure to SARS-CoV-2 (event) 2022-06-10 00:00:00 2022-06-20 09:26:00 Not sure [facility] Alcohol Comment 2016-12-27 00:00:00 2016-12-27 00:00:00 Occasional wine [facility] History of tobacco use 2016-09-29 00:00:00 Cigarette Smoker [facility] Sex assigned at 1975 00:00:00 1975 00:00:00 [facility] Smoking Status Start Date Stop Date Source Smokes tobacco daily 2023-05-03 00:00:00 [facility] Occasional tobacco smoker 2019-02-04 00:00:00 [facility] Medications Ordered Medication Name Filled Medication Name Start Date Stop Date Current Medication? Ordering Clinician Indication Dosage Frequency Signature (SIG) Comments Components Source albuterol sulfate HFA 90 mcg/actuati on aerosol inhaler 12-02 00:00: 00 Yes [id number] 2{puff} Inhale 2 Puffs every 6 (six) hours as needed for Wheezing or Shortness of Breath. [facility] ARIPiprazol e 10 mg tablet 12-02 00:00: 00 Yes [id number] 10mg Take 1 tablet by mouth at bedtime. [facility] gabapentin 300 mg capsule 12-02 00:00: 00 Yes [id number] 300mg Take 1 capsule by mouth in the morning and 1 capsule at noon and 1 capsule in the evening. [facility] traMADoL 50 mg tablet 12-02 00:00: 00 Yes [id number] TAKE 1 TABLET BY MOUTH EVERY 8 HOURS NEEDED FOR PAIN Indication s: chronic pain [facility] SERTraline 100 mg tablet 12-02 00:00: 00 Yes [id number] 100mg Take 1 tablet by mouth in the morning. [facility] traZODone 50 mg tablet 12-02 00:00: 00 Yes [id number] 50mg Take 1 tablet by mouth at bedtime. [facility] doxycycline hyclate (Vibramycin ) capsule 100 mg 11-26 14:00: 00 Yes [id number] 100mg [facility] elviteg-cob -emtri-teno f ALAFEN (GENVOYA) 150-150-200 -10 mg per tablet 11-25 00:00: 00 Yes [id number] 1{tbl} Take 1 tablet by mouth every morning. Please call [phone] to schedule a follow up brandyn wade Thank you [facility] busPIRone 10 mg tablet 11-25 00:00: 00 02-24 04:59 :00 Yes [id number] 10mg Take 1 tablet by mouth in the morning and 1 tablet in the evening. Do all this for 90 days. [facility] elvite-cob -emtri-teno f ALAFEN (GENVOYA) 150-150-200 -10 mg per tablet 2023-08 0-03 00:00: 00 11-25 00:00 :00 No [id number] 1{tbl} Take 1 tablet by mouth every morning. Please call [phone] to schedule a follow up appointmen t. Thank you [facility] ALBUTEROL 90 mcg/actuati on inhaler 03-11 00:00: 00 11-26 00:00 :00 No [id number] 2{puff} TAKE 2 PUFFS BY MOUTH EVERY 6 HOURS NEEDED FOR WHEEZE OR FOR SHORTNESS OF BREATH [facility] ARIPIPRAZOL E 10 mg tablet 03-11 00:00: 00 11-26 00:00 :00 No [id number] 10mg TAKE 1 TABLET BY MOUTH EVERYDAY AT BEDTIME [facility] TRAMADOL 50 mg tablet 6-11 00:00: 00 11-26 00:00 :00 No [id number] TAKE 1 TABLET BY MOUTH EVERY 8 HOURS NEEDED FOR PAIN INDICATION S: CHRONIC PAIN [facility] traMADoL 50 mg tablet 5-15 00:00: 00 01-21 00:00 :00 No [id number] TAKE 1 TABLET BY MOUTH EVERY 8 HOURS NEEDED FOR PAIN INDICATION S: CHRONIC PAIN [facility] elvite-cob -emtri-teno f ALAFEN (GENVOYA) 150-150-200 -10 mg per tablet 5- 00:00: 00 05-15 00:00 :00 No [id number] 1{tbl} Take 1 tablet by mouth every morning. Please call to schedule a follow up appointmen t. Thank you [facility] BENZONATATE 100 mg capsule 2023-0 4-09 00:00: 00 Yes [id number] TAKE 1 CAPSULE BY MOUTH EVERY 6 HOURS NEEDED FOR COUGH. [facility] BENZONATATE 100 mg capsule 3-05 00:00: 00 11-19 00:00 :00 No [id number] TAKE 1 CAPSULE BY MOUTH EVERY 6 HOURS NEEDED FOR COUGH. [facility] BENZONATATE 100 mg capsule 2-09 00:00: 00 Yes [id number] TAKE 1 CAPSULE BY MOUTH EVERY 6 HOURS NEEDED FOR COUGH. [facility] TRAMADOL 50 mg tablet 2- 00:00: 00 12-25 00:00 :00 No [id number] TAKE 1 TABLET BY MOUTH EVERY 8 HOURS NEEDED FOR PAIN INDICATION S: CHRONIC PAIN [facility] QUEtiapine 50 mg tablet 2022-08 00:00: 00 Yes TAKE 1 TABLET AT BEDTIME TAKE FOR 7 NIGHTS IF NO SIDE EFFECTS INCREASE TO THE 100 MG TABS. [facility] traMADoL 50 mg tablet 2022-08 00:00: 00 09-20 00:00 :00 No [id number] TAKE 1 TABLET BY MOUTH EVERY 8 HOURS NEEDED FOR PAIN Indication s: chronic pain [facility] azithromyci n 250 mg tablet 05-03 00:00: 00 11-25 00:00 :00 No [id number] Z-Blayne = 500mg day 1, then 250mg days 2 to 5. [facility] Guaifenesin 1,200 mg tablet 05-03 00:00: 00 11-25 00:00 :00 No [id number] 1200mg Take 1 tablet by mouth in the morning and 1 tablet in the evening. [facility] benzonatate (TESSALON PERLES) 100 mg capsule 05-03 00:00: 00 09-21 00:00 :00 No [id number] 100mg Take 1 capsule by mouth every 6 (six) hours as needed for Cough. [facility] prednisoLON E 5 mg tablet 05-03 00:00: 00 05-09 04:59 :00 No [id number] 20mg Take 4 tablets by mouth in the morning for 5 days. [facility] busPIRone 10 mg tablet 9-15 00:00: 00 11-25 00:00 :00 No 10mg Take 1 tablet by mouth in the morning and 1 tablet in the evening. [facility] TAKE 1 CAPSULE BY MOUTH TWICE A DAY 04-02 00:00: 00 Yes Octavio Lan TAKE 1 CAPSULE TWICE DAILY. 04-02 00:00: 00 Yes 100 Octavio Lan ARIPIPRAZOL E 10 MG TABS 02-16 00:00: 00 Yes Octavio Lan TAKE 2 PUFFS BY MOUTH EVERY 6 HOURS NEEDED FOR WHEEZE OR FOR SHORTNESS OF BREATH 02-16 00:00: 00 Yes Octavio Lan TAKE 1 CAPSULE BY MOUTH EVERY 12 HOURS FOR 7 DAYS. 02-16 00:00: 00 Yes Octavio Lan traZODone 50 mg tablet 02-16 00:00: 00 11-26 00:00 :00 No [id number] 50mg Take 1 tablet by mouth at bedtime. [facility] gabapentin 300 mg capsule 02-16 00:00: 00 11-26 00:00 :00 No [id number] 300mg Take 1 capsule by mouth in the morning and 1 capsule at noon and 1 capsule in the evening. [facility] SERTraline 100 mg tablet 02-16 00:00: 00 11-26 00:00 :00 No [id number] 100mg Take 1 tablet by mouth in the morning. [facility] ARIPiprazol e 10 mg tablet 02-16 00:00: 00 03-11 00:00 :00 No [id number] 10mg Take 1 tablet by mouth at bedtime. [facility] albuterol 90 mcg/actuati on inhaler 02-16 00:00: 00 03-11 00:00 :00 No [id number] 2{puff} Inhale 2 Puffs every 6 (six) hours as needed for Wheezing or Shortness of Breath. [facility] elviteg-cob -emtri-teno f ALAFEN (GENVOYA) 150-150-200 -10 mg per tablet 02-16 00:00: 00 12-11 00:00 :00 No [id number] 1{tbl} Take 1 tablet by mouth every morning. [facility] doxycycline hyclate 100 mg capsule 02-16 00:00: 00 02-24 04:59 :00 No [id number] 100mg Take 1 capsule by mouth every 12 (twelve) hours for 7 days. [facility] TRAMADOL HCL 50 MG TABS 02-14 00:00: 00 Yes Octavio Lan TAKE 1 TABLET BY MOUTH EVERY DAY IN THE MORNING 01-17 00:00: 00 Yes Octavio Harvey Riky TRAZODONE HYDROCHLORI DE 50 MG TABS 01-17 00:00: 00 Yes Octavio Harvey Riky traZODone 50 mg tablet 01-17 00:00: 00 02-16 00:00 :00 No [id number] 50mg Take 1 tablet by mouth at bedtime. [facility] elviteg-cob -emtri-teno f ALAFEN (GENVOYA) 150-150-200 -10 mg per tablet 01-17 00:00: 00 02-16 00:00 :00 No [id number] 1{tbl} Take 1 tablet by mouth every morning. [facility] gabapentin 300 mg capsule 01-17 00:00: 00 02-16 00:00 :00 No [id number] 300mg Take 1 capsule by mouth in the morning and 1 capsule at noon and 1 capsule in the evening. [facility] SULFAMETHOX AZOLE/TRIME THOPRIM DS 800-160 MG TABS 2021-08 00:00: 00 Yes Octavio Lan APPLY 1 APPLICATION 3 TIMES A DAY FOR 7 DAYS 2021-08 00:00: 00 Yes Octavio Wes Riky TAKE DIRECTED 2021-08 0-04 00:00: 00 Yes Octavio Wes Riky peg-electro lyte soln 236-22.74-6 .74 -5.86 gram solution 2021-08 0-04 00:00: 00 05-02 00:00 :00 No Take as Directed [facility] APPLY 1 CENTIMETER RIBBON TO AFFECTED EYE(S) 2 TO 3 TIMES DAILY FOR 7 DAYS 05-06 00:00: 00 Yes Octavio Lan GABAPENTIN 300 MG 05-02 00:00: 00 Yes Octavio Lan traMADoL 50 mg tablet 05-02 00:00: 00 02-14 00:00 :00 No [id number] TAKE 1 TABLET BY MOUTH EVERY 8 HOURS NEEDED FOR PAIN Indication s: chronic pain [facility] elviteg-cob -emtri-teno f ALAFEN (GENVOYA) 150-150-200 -10 mg per tablet 05-02 00:00: 00 01-17 00:00 :00 No [id number] 1{tbl} Take 1 tablet by mouth every morning. [facility] gabapentin 300 mg capsule 05-02 00:00: 00 01-17 00:00 :00 No [id number] 300mg Take 1 capsule by mouth in the morning and 1 capsule at noon and 1 capsule in the evening. [facility] TAKE 1 TABLET BY MOUTH EVERY DAY 04-19 00:00: 00 Yes Octavio Lan TAKE 1 TABLET BY MOUTH EVERYDAY AT BEDTIME 04-19 00:00: 00 Yes Octavio Lan ARIPiprazol e 10 mg tablet 04-19 00:00: 00 02-16 00:00 :00 No 10mg Take 10 mg by mouth at bedtime. [facility] SERTraline 100 mg tablet 04-19 00:00: 00 02-16 00:00 :00 No 100mg Take 100 mg by mouth in the morning. [facility] traZODone 50 mg tablet 04-19 00:00: 00 01-17 00:00 :00 No 50mg Take 50 mg by mouth at bedtime. [facility] traMADoL 50 mg tablet 6-16 00:00: 05-02 00:00 :00 No [id number] TAKE 1 TABLET BY MOUTH EVERY 8 HOURS NEEDED FOR PAIN Indication s: chronic pain [facility] elvite-cob -emtri-teno f ALAFEN (GENVOYA) 150-150-200 -10 mg per tablet 08 00:00: 00 05-02 00:00 :00 No [id number] 1{tbl} Take 1 tablet by mouth every morning. [facility] gabapentin 300 mg capsule 10-18 00:00: 00 05-02 00:00 :00 No [id number] 300mg Take 1 capsule by mouth 3 (three) times daily. [facility] TRAMADOL 50 mg tablet 10-06 00:00: 00 01-25 00:00 :00 No [id number] TAKE 1 TABLET BY MOUTH EVERY 8 HOURS [facility] ALAFEN (GENVOYA) 150-150-200 -10 mg per tablet 2020-08 00:00: 00 10-18 00:00 :00 No [id number] 1{tbl} Take 1 tablet by mouth every morning. [facility] gabapentin 300 mg capsule 2020-08 00:00: 00 10-18 00:00 :00 No [id number] 300mg Take 1 capsule by mouth 3 (three) times daily. [facility] Genvoya 150 mg-150 mg-200 mg-10 mg tablet 04-19 00:00: 00 Yes 1mg Octavio Lan sertraline 50 mg tablet 04-19 00:00: 00 Yes 1mg Octavio Lan tramadol 50 mg tablet 04-19 00:00: 00 Yes 1mg Octavio Lan gabapentin 300 mg capsule 04-19 00:00: 00 Yes 1mg Octavio Lan SERTraline 50 mg tablet 2019-08 00:00: 00 05-02 00:00 :00 No [id number] Take 1 tablet daily for 14 days. Then take 2 tablets daily. [facility] Immunizations Ordered Immunization Name Filled Immunization Name Date Status Comments Source Flu Injectable MDCK Pres-Free (FLUCELVAX) 2024-11-25 00:00:00 Completed [facility] SARS-COV-2 COVID 19 GLEN SUCROSE VACCINE 12+, 0.3 ML (30 MCG), IM PFIZER (CORNELL TOP) 2024-11-25 00:00:00 Completed Pneumococcal 20 Conjugate, PCV20 (Prevnar 20) 2024-11-25 00:00:00 Completed Influenza Virus Vaccine Quad IM, Preserv and ABX Free 6 MO-64 YRS 2022-05-02 00:00:00 Completed [facility] SARS-COV-2 COVID-19 VACCINE 18 YRS+, BIVALENT 0.5ML, IM, (MODERNA BOOSTER) 2022-05-02 00:00:00 Completed [facility] Influenza Virus Vaccine Quad IM, Preserv and ABX Free 6 MO-64 YRS 2022-05-02 00:00:00 Completed [facility] SARS-COV-2 COVID-19 VACCINE 18 YRS+, BIVALENT 0.5ML, IM, (MODERNA BOOSTER) 2022-05-02 00:00:00 Completed [facility] Influenza Virus Vaccine Quad IM, Preserv and ABX Free 6 MO-64 YRS 2022-05-02 00:00:00 Completed [facility] SARS-COV-2 COVID-19 VACCINE 18 YRS+, BIVALENT 0.5ML, IM, (MODERNA BOOSTER) 2022-05-02 00:00:00 Completed [facility] Influenza Virus Vaccine Quad IM, Preserv and ABX Free 6 MO-64 YRS 2022-05-02 00:00:00 Completed [facility] SARS-COV-2 COVID-19 VACCINE 18 YRS+, BIVALENT 0.5ML, IM, (MODERNA BOOSTER) 2022-05-02 00:00:00 Completed [facility] Influenza Virus Vaccine Quad IM, Preserv and ABX Free 6 MO-64 YRS 2022-05-02 00:00:00 Completed [facility] SARS-COV-2 COVID-19 VACCINE 18 YRS+, BIVALENT 0.5ML, IM, (MODERNA BOOSTER) 2022-05-02 00:00:00 Completed [facility] Influenza Virus Vaccine Quad IM, Preserv and ABX Free 6 MO-64 YRS 2022-05-02 00:00:00 Completed [facility] SARS-COV-2 COVID-19 VACCINE 12 YRS+, BIVALENT 0.5ML, IM, (MODERNA BOOSTER) 2022-05-02 00:00:00 Completed [facility] Influenza Virus Vaccine Quad IM, Preserv and ABX Free 6 MO-64 YRS 2022-05-02 00:00:00 Completed [facility] SARS-COV-2 COVID-19 VACCINE 12 YRS+, BIVALENT 0.5ML, IM, (MODERNA BOOSTER) 2022-05-02 00:00:00 Completed [facility] Influenza Virus Vaccine Quad IM, Preserv and ABX Free 6 MO-64 YRS 2022-05-02 00:00:00 Completed [facility] SARS-COV-2 COVID-19 VACCINE 12 YRS+, BIVALENT 0.5ML, IM, (MODERNA BOOSTER) 2022-05-02 00:00:00 Completed [facility] Influenza Virus Vaccine Quad IM, Preserv and ABX Free 6 MO-64 YRS 2022-05-02 00:00:00 Completed [facility] SARS-COV-2 COVID-19 VACCINE 12 YRS+, BIVALENT 0.5ML, IM, (MODERNA BOOSTER) 2022-05-02 00:00:00 Completed [facility] Influenza Virus Vaccine Quad IM, Preserv and ABX Free 6 MO-64 YRS 2022-05-02 00:00:00 Completed [facility] SARS-COV-2 COVID-19 VACCINE 12 YRS+, BIVALENT 0.5ML, IM, (MODERNA BOOSTER) 2022-05-02 00:00:00 Completed [facility] Influenza Virus Vaccine Quad IM, Preserv and ABX Free 6 MO-64 YRS 2022-05-02 00:00:00 Completed [facility] SARS-COV-2 COVID-19 VACCINE 12 YRS+, BIVALENT 0.5ML, IM, (MODERNA-BLUE TOP) 2022-05-02 00:00:00 Completed [facility] Influenza Virus Vaccine Quad IM, Preserv and ABX Free 6 MO-64 YRS 2022-05-02 00:00:00 Completed [facility] SARS-COV-2 COVID-19 VACCINE 12 YRS+, BIVALENT 0.5ML, IM, (MODERNA-BLUE TOP) 2022-05-02 00:00:00 Completed [facility] Influenza Virus Vaccine Quad IM, Preserv and ABX Free 6 MO-64 YRS 2022-05-02 00:00:00 Completed [facility] SARS-COV-2 COVID-19 VACCINE 12 YRS+, BIVALENT 0.5ML, IM, (MODERNA-BLUE TOP) 2022-05-02 00:00:00 Completed [facility] Influenza Virus Vaccine Quad IM, Preserv and ABX Free 6 MO-64 YRS 2022-05-02 00:00:00 Completed [facility] SARS-COV-2 COVID-19 VACCINE 12 YRS+, BIVALENT 0.5ML, IM, (MODERNA-BLUE TOP) 2022-05-02 00:00:00 Completed [facility] Influenza Virus Vaccine Quad IM, Preserv and ABX Free 6 MO-64 YRS 2022-05-02 00:00:00 Completed [facility] SARS-COV-2 COVID-19 VACCINE 12 YRS+, BIVALENT 0.5ML, IM, (MODERNA-BLUE TOP) 2022-05-02 00:00:00 Completed [facility] Influenza Virus Vaccine Quad IM, Preserv and ABX Free 6 MO-64 YRS 2022-05-02 00:00:00 Completed [facility] SARS-COV-2 COVID-19 VACCINE 12 YRS+, BIVALENT 0.5ML, IM, (MODERNA-BLUE TOP) 2022-05-02 00:00:00 Completed [facility] Influenza Virus Vaccine Quad IM, Preserv and ABX Free 6 MO-64 YRS 2022-05-02 00:00:00 Completed [facility] SARS-COV-2 COVID-19 VACCINE 12 YRS+, BIVALENT 0.5ML, IM, (MODERNA-BLUE TOP) 2022-05-02 00:00:00 Completed [facility] Influenza Virus Vaccine Quad IM, Preserv and ABX Free 6 MO-64 YRS 2022-05-02 00:00:00 Completed [facility] SARS-COV-2 COVID-19 VACCINE 12 YRS+, BIVALENT 0.5ML, IM, (MODERNA-BLUE TOP) 2022-05-02 00:00:00 Completed [facility] Influenza Virus Vaccine Quad IM, Preserv and ABX Free 6 MO-64 YRS (FLUCELVAX) 2022-05-02 00:00:00 Completed [facility] SARS-COV-2 COVID-19 VACCINE 12 YRS+, BIVALENT 0.5ML, IM, (MODERNA-BLUE TOP) 2022-05-02 00:00:00 Completed Influenza Virus Vaccine Quad IM, Preserv and ABX Free 6 MO-64 YRS (FLUCELVAX) 2022-05-02 00:00:00 Completed [facility] SARS-COV-2 COVID-19 VACCINE 12 YRS+, BIVALENT 0.5ML, IM, (MODERNA-BLUE TOP) 2022-05-02 00:00:00 Completed SARS-COV-2 COVID-19 PFIZER VACCINE 2021-10-18 00:00:00 Completed [facility] Influenza Virus Vaccine Quad IM, Preserv and ABX Free 6 MO-64 YRS 2021-10-18 00:00:00 Completed [facility] SARS-COV-2 COVID-19 PFIZER VACCINE 2021-10-18 00:00:00 Completed [facility] Influenza Virus Vaccine Quad IM, Preserv and ABX Free 6 MO-64 YRS 2021-10-18 00:00:00 Completed [facility] SARS-COV-2 COVID-19 PFIZER VACCINE 2021-10-18 00:00:00 Completed [facility] Influenza Virus Vaccine Quad IM, Preserv and ABX Free 6 MO-64 YRS 2021-10-18 00:00:00 Completed [facility] SARS-COV-2 COVID-19 PFIZER VACCINE 2021-10-18 00:00:00 Completed [facility] Influenza Virus Vaccine Quad IM, Preserv and ABX Free 6 MO-64 YRS 2021-10-18 00:00:00 Completed [facility] SARS-COV-2 COVID-19 PFIZER VACCINE 2021-10-18 00:00:00 Completed [facility] Influenza Virus Vaccine Quad IM, Preserv and ABX Free 6 MO-64 YRS 2021-10-18 00:00:00 Completed [facility] SARS-COV-2 COVID-19 PFIZER VACCINE 2021-10-18 00:00:00 Completed [facility] Influenza Virus Vaccine Quad IM, Preserv and ABX Free 6 MO-64 YRS 2021-10-18 00:00:00 Completed [facility] SARS-COV-2 COVID-19 PFIZER VACCINE 2021-10-18 00:00:00 Completed [facility] Influenza Virus Vaccine Quad IM, Preserv and ABX Free 6 MO-64 YRS 2021-10-18 00:00:00 Completed [facility] SARS-COV-2 COVID-19 PFIZER VACCINE 2021-10-18 00:00:00 Completed [facility] Influenza Virus Vaccine Quad IM, Preserv and ABX Free 6 MO-64 YRS 2021-10-18 00:00:00 Completed [facility] SARS-COV-2 COVID-19 PFIZER VACCINE 2021-10-18 00:00:00 Completed [facility] Influenza Virus Vaccine Quad IM, Preserv and ABX Free 6 MO-64 YRS 2021-10-18 00:00:00 Completed [facility] SARS-COV-2 COVID-19 PFIZER VACCINE 2021-10-18 00:00:00 Completed [facility] Influenza Virus Vaccine Quad IM, Preserv and ABX Free 6 MO-64 2021-10-18 00:00:00 Completed [facility] SARS-COV-2 COVID-19 PFIZER VACCINE 2021-10-18 00:00:00 Completed [facility] Influenza Virus Vaccine Quad IM, Preserv and ABX Free 6 MO-64 YRS 2021-10-18 00:00:00 Completed [facility] SARS-COV-2 COVID-19 PFIZER VACCINE 2021-10-18 00:00:00 Completed [facility] Influenza Virus Vaccine Quad IM, Preserv and ABX Free 6 MO-64 YRS 2021-10-18 00:00:00 Completed [facility] SARS-COV-2 COVID-19 PFIZER VACCINE 2021-10-18 00:00:00 Completed [facility] Influenza Virus Vaccine Quad IM, Preserv and ABX Free 6 MO-64 YRS 2021-10-18 00:00:00 Completed [facility] SARS-COV-2 COVID-19 PFIZER VACCINE 2021-10-18 00:00:00 Completed [facility] Influenza Virus Vaccine Quad IM, Preserv and ABX Free 6 MO-64 YRS 2021-10-18 00:00:00 Completed [facility] SARS-COV-2 COVID-19 PFIZER VACCINE 2021-10-18 00:00:00 Completed [facility] Influenza Virus Vaccine Quad IM, Preserv and ABX Free 6 MO-64 YRS 2021-10-18 00:00:00 Completed [facility] SARS-COV-2 COVID-19 PFIZER VACCINE 2021-10-18 00:00:00 Completed [facility] Influenza Virus Vaccine Quad IM, Preserv and ABX Free 6 MO-64 YRS 2021-10-18 00:00:00 Completed [facility] SARS-COV-2 COVID-19 PFIZER VACCINE 2021-10-18 00:00:00 Completed [facility] Influenza Virus Vaccine Quad IM, Preserv and ABX Free 6 MO-64 YRS 2021-10-18 00:00:00 Completed [facility] SARS-COV-2 COVID-19 PFIZER VACCINE 2021-10-18 00:00:00 Completed [facility] Influenza Virus Vaccine Quad IM, Preserv and ABX Free 6 MO-64 YRS 2021-10-18 00:00:00 Completed [facility] SARS-COV-2 COVID-19 PFIZER VACCINE 2021-10-18 00:00:00 Completed [facility] Influenza Virus Vaccine Quad IM, Preserv and ABX Free 6 MO-64 YRS 2021-10-18 00:00:00 Completed [facility] SARS-COV-2 COVID-19 PFIZER VACCINE 2021-10-18 00:00:00 Completed [facility] Influenza Virus Vaccine Quad IM, Preserv and ABX Free 6 MO-64 YRS 2021-10-18 00:00:00 Completed [facility] SARS-COV-2 COVID-19 PFIZER VACCINE 2021-10-18 00:00:00 Completed [facility] Influenza Virus Vaccine Quad IM, Preserv and ABX Free 6 MO-64 YRS 2021-10-18 00:00:00 Completed [facility] SARS-COV-2 COVID-19 PFIZER VACCINE 2021-10-18 00:00:00 Completed [facility] Influenza Virus Vaccine Quad IM, Preserv and ABX Free 6 MO-64 YRS 2021-10-18 00:00:00 Completed [facility] SARS-COV-2 COVID-19 PFIZER VACCINE 2021-10-18 00:00:00 Completed [facility] Influenza Virus Vaccine Quad IM, Preserv and ABX Free 6 MO-64 YRS 2021-10-18 00:00:00 Completed [facility] SARS-COV-2 COVID-19 PFIZER VACCINE 2021-10-18 00:00:00 Completed [facility] Influenza Virus Vaccine Quad IM, Preserv and ABX Free 6 MO-64 YRS 2021-10-18 00:00:00 Completed [facility] SARS-COV-2 COVID-19 PFIZER VACCINE 2021-10-18 00:00:00 Completed [facility] Influenza Virus Vaccine Quad IM, Preserv and ABX Free 6 MO-64 YRS 2021-10-18 00:00:00 Completed [facility] SARS-COV-2 COVID-19 PFIZER VACCINE 2021-10-18 00:00:00 Completed Influenza Virus Vaccine Quad IM, Preserv and ABX Free 6 MO-64 YRS (FLUCELVAX) 2021-10-18 00:00:00 Completed SARS-COV-2 COVID-19 PFIZER VACCINE 2021-10-18 00:00:00 Completed Influenza Virus Vaccine Quad IM, Preserv and ABX Free 6 MO-64 YRS (FLUCELVAX) 2021-10-18 00:00:00 Completed SARS-COV-2 COVID-19 PFIZER VACCINE 2021-06-14 00:00:00 Completed [facility] SARS-COV-2 COVID-19 PFIZER VACCINE 2021-06-14 00:00:00 Completed [facility] SARS-COV-2 COVID-19 PFIZER VACCINE 2021-06-14 00:00:00 Completed [facility] SARS-COV-2 COVID-19 PFIZER VACCINE 2021-06-14 00:00:00 Completed [facility] SARS-COV-2 COVID-19 PFIZER VACCINE 2021-06-14 00:00:00 Completed [facility] SARS-COV-2 COVID-19 PFIZER VACCINE 2021-06-14 00:00:00 Completed [facility] SARS-COV-2 COVID-19 PFIZER VACCINE 2021-06-14 00:00:00 Completed [facility] SARS-COV-2 COVID-19 PFIZER VACCINE 2021-06-14 00:00:00 Completed [facility] SARS-COV-2 COVID-19 PFIZER VACCINE 2021-06-14 00:00:00 Completed [facility] SARS-COV-2 COVID-19 PFIZER VACCINE 2021-06-14 00:00:00 Completed [facility] SARS-COV-2 COVID-19 PFIZER VACCINE 2021-06-14 00:00:00 Completed [facility] SARS-COV-2 COVID-19 PFIZER VACCINE 2021-06-14 00:00:00 Completed [facility] SARS-COV-2 COVID-19 PFIZER VACCINE 2021-06-14 00:00:00 Completed [facility] SARS-COV-2 COVID-19 PFIZER VACCINE 2021-06-14 00:00:00 Completed [facility] SARS-COV-2 COVID-19 PFIZER VACCINE 2021-06-14 00:00:00 Completed [facility] SARS-COV-2 COVID-19 PFIZER VACCINE 2021-06-14 00:00:00 Completed [facility] SARS-COV-2 COVID-19 PFIZER VACCINE 2021-06-14 00:00:00 Completed [facility] SARS-COV-2 COVID-19 PFIZER VACCINE 2021-06-14 00:00:00 Completed [facility] SARS-COV-2 COVID-19 PFIZER VACCINE 2021-06-14 00:00:00 Completed [facility] SARS-COV-2 COVID-19 PFIZER VACCINE 2021-06-14 00:00:00 Completed [facility] SARS-COV-2 COVID-19 PFIZER VACCINE 2021-06-14 00:00:00 Completed [facility] SARS-COV-2 COVID-19 PFIZER VACCINE 2021-06-14 00:00:00 Completed [facility] SARS-COV-2 COVID-19 PFIZER VACCINE 2021-06-14 00:00:00 Completed [facility] SARS-COV-2 COVID-19 PFIZER VACCINE 2021-06-14 00:00:00 Completed [facility] SARS-COV-2 COVID-19 PFIZER VACCINE 2021-06-14 00:00:00 Completed [facility] SARS-COV-2 COVID-19 PFIZER VACCINE 2021-06-14 00:00:00 Completed [facility] SARS-COV-2 COVID-19 PFIZER VACCINE 2021-06-14 00:00:00 Completed SARS-COV-2 COVID-19 PFIZER VACCINE 2021-06-14 00:00:00 Completed Influenza Virus Vaccine Recomb Quad IM, Preserv and ABX Free 18-64 YRS 2020-07-13 00:00:00 Completed [facility] Influenza Virus Vaccine Recomb Quad IM, Preserv and ABX Free 18-64 YRS 2020-07-13 00:00:00 Completed [facility] Influenza Virus Vaccine Recomb Quad IM, Preserv and ABX Free 18-64 YRS 2020-07-13 00:00:00 Completed [facility] Influenza Virus Vaccine Recomb Quad IM, Preserv and ABX Free 18-64 YRS 2020-07-13 00:00:00 Completed [facility] Influenza Virus Vaccine Recomb Quad IM, Preserv and ABX Free 18-64 YRS 2020-07-13 00:00:00 Completed [facility] Influenza Virus Vaccine Recomb Quad IM, Preserv and ABX Free 18-64 YRS 2020-07-13 00:00:00 Completed [facility] Influenza Virus Vaccine Recomb Quad IM, Preserv and ABX Free 18-64 YRS 2020-07-13 00:00:00 Completed [facility] Influenza Virus Vaccine Recomb Quad IM, Preserv and ABX Free 18-64 YRS 2020-07-13 00:00:00 Completed [facility] Influenza Virus Vaccine Recomb Quad IM, Preserv and ABX Free 18-64 YRS 2020-07-13 00:00:00 Completed [facility] Influenza Virus Vaccine Recomb Quad IM, Preserv and ABX Free 18-64 YRS 2020-07-13 00:00:00 Completed [facility] Influenza Virus Vaccine Recomb Quad IM, Preserv and ABX Free 18-64 YRS 2020-07-13 00:00:00 Completed [facility] Influenza Virus Vaccine Recomb Quad IM, Preserv and ABX Free 18-64 [facility] 2020-07-13 00:00:00 Completed [facility] Influenza Virus Vaccine Recomb Quad IM, Preserv and ABX Free 18-64 [facility] 2020-07-13 00:00:00 Completed [facility] Influenza Virus Vaccine Recomb Quad IM, Preserv and ABX Free 1864 [facility] 2020-07-13 00:00:00 Completed [facility] Influenza Virus Vaccine Recomb Quad IM, Preserv and ABX Free 1864 [facility] 2020-07-13 00:00:00 Completed [facility] Influenza Virus Vaccine Recomb Quad IM, Preserv and ABX Free 1864 [facility] 2020-07-13 00:00:00 Completed [facility] Influenza Virus Vaccine Recomb Quad IM, Preserv and ABX Free [facility]64 [facility] 2020-07-13 00:00:00 Completed [facility] Influenza Virus Vaccine Recomb Quad IM, Preserv and ABX Free 1864 [facility] 2020-07-13 00:00:00 Completed [facility] Influenza Virus Vaccine Recomb Quad IM, Preserv and ABX Free [facility]64 [facility] 2020-07-13 00:00:00 Completed [facility] Influenza Virus Vaccine Recomb Quad IM, Preserv and ABX Free 1864 [facility] 2020-07-13 00:00:00 Completed [facility] Influenza Virus Vaccine Recomb Quad IM, Preserv and ABX Free [facility]64 [facility] 2020-07-13 00:00:00 Completed [facility] Influenza Virus Vaccine Recomb Quad IM, Preserv and ABX Free 1864 [facility] 2020-07-13 00:00:00 Completed [facility] Influenza Virus Vaccine Recomb Quad IM, Preserv and ABX Free 1864 [facility] 2020-07-13 00:00:00 Completed [facility] Influenza Virus Vaccine Recomb Quad IM, Preserv and ABX Free 1864 [facility] 2020-07-13 00:00:00 Completed [facility] Influenza Virus Vaccine Recomb Quad IM, Preserv and ABX Free 1864 [facility] 2020-07-13 00:00:00 Completed [facility] Influenza Virus Vaccine Recomb Quad IM, Preserv and ABX Free 1864 [facility] 2020-07-13 00:00:00 Completed [facility] Influenza Virus Vaccine Recomb Quad IM, Preserv and ABX Free 18-64 YRS 2020-07-13 00:00:00 Completed [facility] Influenza Virus Vaccine Recomb Quad IM, Preserv and ABX Free 18-64 YRS 2020-07-13 00:00:00 Completed [facility] Twinrix (hep a/hep b) 2018-09-24 00:00:00 Completed [facility] Twinrix (hep a/hep b) 2018-09-24 00:00:00 Completed [facility] Twinrix (hep a/hep b) 2018-09-24 00:00:00 Completed [facility] Twinrix (hep a/hep b) 2018-09-24 00:00:00 Completed [facility] Twinrix (hep a/hep b) 2018-09-24 00:00:00 Completed [facility] Twinrix (hep a/hep b) 2018-09-24 00:00:00 Completed [facility] Twinrix (hep a/hep b) 2018-09-24 00:00:00 Completed [facility] Twinrix (hep a/hep b) 2018-09-24 00:00:00 Completed [facility] Twinrix (hep a/hep b) 2018-09-24 00:00:00 Completed [facility] Twinrix (hep a/hep b) 2018-09-24 00:00:00 Completed [facility] Twinrix (hep a/hep b) 2018-09-24 00:00:00 Completed [facility] Twinrix (hep a/hep b) 2018-09-24 00:00:00 Completed [facility] Twinrix (hep a/hep b) 2018-09-24 00:00:00 Completed [facility] Twinrix (hep a/hep b) 2018-09-24 00:00:00 Completed [facility] Twinrix (hep a/hep b) 2018-09-24 00:00:00 Completed [facility] Twinrix (hep a/hep b) 2018-09-24 00:00:00 Completed [facility] Twinrix (hep a/hep b) 2018-09-24 00:00:00 Completed [facility] Twinrix (hep a/hep b) 2018-09-24 00:00:00 Completed [facility] Twinrix (hep a/hep b) 2018-09-24 00:00:00 Completed [facility] Twinrix (hep a/hep b) 2018-09-24 00:00:00 Completed [facility] Twinrix (hep a/hep b) 2018-09-24 00:00:00 Completed [facility] Twinrix (hep a/hep b) 2018-09-24 00:00:00 Completed [facility] Twinrix (hep a/hep b) 2018-09-24 00:00:00 Completed [facility] Twinrix (hep a/hep b) 2018-09-24 00:00:00 Completed [facility] Twinrix (hep a/hep b) 2018-09-24 00:00:00 Completed [facility] Twinrix (hep a/hep b) 2018-09-24 00:00:00 Completed [facility] Twinrix (hep a/hep b) 2018-09-24 00:00:00 Completed Twinrix (hep a/hep b) 2018-09-24 00:00:00 Completed Influenza Virus Vaccine Quad .5 mL IM 6+ MO 2018-06-11 00:00:00 Completed [facility] Twinrix (hep a/hep b) 2018-06-11 00:00:00 Completed [facility] Influenza Virus Vaccine Quad .5 mL IM 6+ MO 2018-06-11 00:00:00 Completed [facility] Twinrix (hep a/hep b) 2018-06-11 00:00:00 Completed [facility] Influenza Virus Vaccine Quad .5 mL IM 6+ MO 2018-06-11 00:00:00 Completed [facility] Twinrix (hep a/hep b) 2018-06-11 00:00:00 Completed [facility] Influenza Virus Vaccine Quad .5 mL IM 6+ MO 2018-06-11 00:00:00 Completed [facility] Twinrix (hep a/hep b) 2018-06-11 00:00:00 Completed [facility] Influenza Virus Vaccine Quad .5 mL IM 6+ MO 2018-06-11 00:00:00 Completed [facility] Twinrix (hep a/hep b) 2018-06-11 00:00:00 Completed [facility] Influenza Virus Vaccine Quad .5 mL IM 6+ MO 2018-06-11 00:00:00 Completed [facility] Twinrix (hep a/hep b) 2018-06-11 00:00:00 Completed [facility] Influenza Virus Vaccine Quad .5 mL IM 6+ MO 2018-06-11 00:00:00 Completed [facility] Twinrix (hep a/hep b) 2018-06-11 00:00:00 Completed [facility] Influenza Virus Vaccine Quad .5 mL IM 6+ MO 2018-06-11 00:00:00 Completed [facility] Twinrix (hep a/hep b) 2018-06-11 00:00:00 Completed [facility] Influenza Virus Vaccine Quad .5 mL IM 6+ MO 2018-06-11 00:00:00 Completed [facility] Twinrix (hep a/hep b) 2018-06-11 00:00:00 Completed [facility] Influenza Virus Vaccine Quad .5 mL IM 6+ MO 2018-06-11 00:00:00 Completed [facility] Twinrix (hep a/hep b) 2018-06-11 00:00:00 Completed [facility] Influenza Virus Vaccine Quad .5 mL IM 6+ MO 2018-06-11 00:00:00 Completed [facility] Twinrix (hep a/hep b) 2018-06-11 00:00:00 Completed [facility] Influenza Virus Vaccine Quad .5 mL IM 6+ MO 2018-06-11 00:00:00 Completed [facility] Twinrix (hep a/hep b) 2018-06-11 00:00:00 Completed [facility] Influenza Virus Vaccine Quad .5 mL IM 6+ MO 2018-06-11 00:00:00 Completed [facility] Twinrix (hep a/hep b) 2018-06-11 00:00:00 Completed [facility] Influenza Virus Vaccine Quad .5 mL IM 6+ MO 2018-06-11 00:00:00 Completed [facility] Twinrix (hep a/hep b) 2018-06-11 00:00:00 Completed [facility] Influenza Virus Vaccine Quad .5 mL IM 6+ MO 2018-06-11 00:00:00 Completed [facility] Twinrix (hep a/hep b) 2018-06-11 00:00:00 Completed [facility] Influenza Virus Vaccine Quad .5 mL IM 6+ MO 2018-06-11 00:00:00 Completed [facility] Twinrix (hep a/hep b) 2018-06-11 00:00:00 Completed [facility] Influenza Virus Vaccine Quad .5 mL IM 6+ MO 2018-06-11 00:00:00 Completed [facility] Twinrix (hep a/hep b) 2018-06-11 00:00:00 Completed [facility] Influenza Virus Vaccine Quad .5 mL IM 6+ MO 2018-06-11 00:00:00 Completed [facility] Twinrix (hep a/hep b) 2018-06-11 00:00:00 Completed [facility] Influenza Virus Vaccine Quad .5 mL IM 6+ MO 2018-06-11 00:00:00 Completed [facility] Twinrix (hep a/hep b) 2018-06-11 00:00:00 Completed [facility] Influenza Virus Vaccine Quad .5 mL IM 6+ MO 2018-06-11 00:00:00 Completed [facility] Twinrix (hep a/hep b) 2018-06-11 00:00:00 Completed [facility] Influenza Virus Vaccine Quad .5 mL IM 6+ MO 2018-06-11 00:00:00 Completed [facility] Twinrix (hep a/hep b) 2018-06-11 00:00:00 Completed [facility] Influenza Virus Vaccine Quad .5 mL IM 6+ MO 2018-06-11 00:00:00 Completed [facility] Twinrix (hep a/hep b) 2018-06-11 00:00:00 Completed [facility] Influenza Virus Vaccine Quad .5 mL IM 6+ MO 2018-06-11 00:00:00 Completed [facility] Twinrix (hep a/hep b) 2018-06-11 00:00:00 Completed [facility] Influenza Virus Vaccine Quad .5 mL IM 6+ MO 2018-06-11 00:00:00 Completed [facility] Twinrix (hep a/hep b) 2018-06-11 00:00:00 Completed [facility] Influenza Virus Vaccine Quad .5 mL IM 6+ MO 2018-06-11 00:00:00 Completed [facility] Twinrix (hep a/hep b) 2018-06-11 00:00:00 Completed [facility] Influenza Virus Vaccine Quad .5 mL IM 6+ MO 2018-06-11 00:00:00 Completed [facility] Twinrix (hep a/hep b) 2018-06-11 00:00:00 Completed [facility] Influenza Virus Vaccine Quad .5 mL IM 6+ MO (FLUZONE/FLULAVAL/F LUARIX) 2018-06-11 00:00:00 Completed Twinrix (hep a/hep b) 2018-06-11 00:00:00 Completed Influenza Virus Vaccine Quad .5 mL IM 6+ MO (FLUZONE/FLULAVAL/F LUARIX) 2018-06-11 00:00:00 Completed Twinrix (hep a/hep b) 2018-06-11 00:00:00 Completed TDAP (ADACEL) VACCINE 2017-10-09 00:00:00 Completed [facility] Twinrix (hep a/hep b) 2017-10-09 00:00:00 Completed [facility] Pneumococcal Polysaccharide, PPSV23 (PNEUMOVAX) 2017-10-09 00:00:00 Completed [facility] TDAP (ADACEL) VACCINE 2017-10-09 00:00:00 Completed [facility] Twinrix (hep a/hep b) 2017-10-09 00:00:00 Completed [facility] Pneumococcal Polysaccharide, PPSV23 (PNEUMOVAX) 2017-10-09 00:00:00 Completed [facility] TDAP (ADACEL) VACCINE 2017-10-09 00:00:00 Completed [facility] Twinrix (hep a/hep b) 2017-10-09 00:00:00 Completed [facility] Pneumococcal Polysaccharide, PPSV23 (PNEUMOVAX) 2017-10-09 00:00:00 Completed [facility] TDAP (ADACEL) VACCINE 2017-10-09 00:00:00 Completed [facility] Twinrix (hep a/hep b) 2017-10-09 00:00:00 Completed [facility] Pneumococcal Polysaccharide, PPSV23 (PNEUMOVAX) 2017-10-09 00:00:00 Completed [facility] TDAP (ADACEL) VACCINE 2017-10-09 00:00:00 Completed [facility] Twinrix (hep a/hep b) 2017-10-09 00:00:00 Completed [facility] Pneumococcal Polysaccharide, PPSV23 (PNEUMOVAX) 2017-10-09 00:00:00 Completed [facility] TDAP (ADACEL) VACCINE 2017-10-09 00:00:00 Completed [facility] Twinrix (hep a/hep b) 2017-10-09 00:00:00 Completed [facility] Pneumococcal Polysaccharide, PPSV23 (PNEUMOVAX) 2017-10-09 00:00:00 Completed [facility] TDAP (ADACEL) VACCINE 2017-10-09 00:00:00 Completed [facility] Twinrix (hep a/hep b) 2017-10-09 00:00:00 Completed [facility] Pneumococcal Polysaccharide, PPSV23 (PNEUMOVAX) 2017-10-09 00:00:00 Completed [facility] TDAP (ADACEL) VACCINE 2017-10-09 00:00:00 Completed [facility] Twinrix (hep a/hep b) 2017-10-09 00:00:00 Completed [facility] Pneumococcal Polysaccharide, PPSV23 (PNEUMOVAX) 2017-10-09 00:00:00 Completed [facility] TDAP (ADACEL) VACCINE 2017-10-09 00:00:00 Completed [facility] Twinrix (hep a/hep b) 2017-10-09 00:00:00 Completed [facility] Pneumococcal Polysaccharide, PPSV23 (PNEUMOVAX) 2017-10-09 00:00:00 Completed [facility] TDAP (ADACEL) VACCINE 2017-10-09 00:00:00 Completed [facility] Twinrix (hep a/hep b) 2017-10-09 00:00:00 Completed [facility] Pneumococcal Polysaccharide, PPSV23 (PNEUMOVAX) 2017-10-09 00:00:00 Completed [facility] TDAP (ADACEL) VACCINE 2017-10-09 00:00:00 Completed Twinrix (hep a/hep b) 2017-10-09 00:00:00 Completed Pneumococcal Polysaccharide, PPSV23 (PNEUMOVAX) 2017-10-09 00:00:00 Completed [facility] TDAP (ADACEL) VACCINE 2017-10-09 00:00:00 Completed Twinrix (hep a/hep b) 2017-10-09 00:00:00 Completed Pneumococcal Polysaccharide, PPSV23 (PNEUMOVAX) 2017-10-09 00:00:00 Completed [facility] TDAP (ADACEL) VACCINE 2017-10-09 00:00:00 Completed [facility] Twinrix (hep a/hep b) 2017-10-09 00:00:00 Completed [facility] Pneumococcal Polysaccharide, PPSV23 (PNEUMOVAX) 2017-10-09 00:00:00 Completed [facility] TDAP (ADACEL) VACCINE 2017-10-09 00:00:00 Completed [facility] Twinrix (hep a/hep b) 2017-10-09 00:00:00 Completed [facility] Pneumococcal Polysaccharide, PPSV23 (PNEUMOVAX) 2017-10-09 00:00:00 Completed [facility] TDAP (ADACEL) VACCINE 2017-10-09 00:00:00 Completed [facility] Twinrix (hep a/hep b) 2017-10-09 00:00:00 Completed [facility] Pneumococcal Polysaccharide, PPSV23 (PNEUMOVAX) 2017-10-09 00:00:00 Completed [facility] TDAP (ADACEL) VACCINE 2017-10-09 00:00:00 Completed [facility] Twinrix (hep a/hep b) 2017-10-09 00:00:00 Completed [facility] Pneumococcal Polysaccharide, PPSV23 (PNEUMOVAX) 2017-10-09 00:00:00 Completed [facility] TDAP (ADACEL) VACCINE 2017-10-09 00:00:00 Completed [facility] Twinrix (hep a/hep b) 2017-10-09 00:00:00 Completed [facility] Pneumococcal Polysaccharide, PPSV23 (PNEUMOVAX) 2017-10-09 00:00:00 Completed [facility] TDAP (ADACEL) VACCINE 2017-10-09 00:00:00 Completed [facility] Twinrix (hep a/hep b) 2017-10-09 00:00:00 Completed [facility] Pneumococcal Polysaccharide, PPSV23 (PNEUMOVAX) 2017-10-09 00:00:00 Completed [facility] TDAP (ADACEL) VACCINE 2017-10-09 00:00:00 Completed [facility] Twinrix (hep a/hep b) 2017-10-09 00:00:00 Completed [facility] Pneumococcal Polysaccharide, PPSV23 (PNEUMOVAX) 2017-10-09 00:00:00 Completed [facility] TDAP (ADACEL) VACCINE 2017-10-09 00:00:00 Completed [facility] Twinrix (hep a/hep b) 2017-10-09 00:00:00 Completed [facility] Pneumococcal Polysaccharide, PPSV23 (PNEUMOVAX) 2017-10-09 00:00:00 Completed [facility] TDAP (ADACEL) VACCINE 2017-10-09 00:00:00 Completed [facility] Twinrix (hep a/hep b) 2017-10-09 00:00:00 Completed [facility] Pneumococcal Polysaccharide, PPSV23 (PNEUMOVAX) 2017-10-09 00:00:00 Completed [facility] TDAP (ADACEL) VACCINE 2017-10-09 00:00:00 Completed [facility] Twinrix (hep a/hep b) 2017-10-09 00:00:00 Completed [facility] Pneumococcal Polysaccharide, PPSV23 (PNEUMOVAX) 2017-10-09 00:00:00 Completed [facility] TDAP (ADACEL) VACCINE 2017-10-09 00:00:00 Completed [facility] Twinrix (hep a/hep b) 2017-10-09 00:00:00 Completed [facility] Pneumococcal Polysaccharide, PPSV23 (PNEUMOVAX) 2017-10-09 00:00:00 Completed [facility] TDAP (ADACEL) VACCINE 2017-10-09 00:00:00 Completed [facility] Twinrix (hep a/hep b) 2017-10-09 00:00:00 Completed [facility] Pneumococcal Polysaccharide, PPSV23 (PNEUMOVAX) 2017-10-09 00:00:00 Completed [facility] TDAP (ADACEL) VACCINE 2017-10-09 00:00:00 Completed [facility] Twinrix (hep a/hep b) 2017-10-09 00:00:00 Completed [facility] Pneumococcal Polysaccharide, PPSV23 (PNEUMOVAX) 2017-10-09 00:00:00 Completed [facility] TDAP (ADACEL) VACCINE 2017-10-09 00:00:00 Completed [facility] Twinrix (hep a/hep b) 2017-10-09 00:00:00 Completed [facility] Pneumococcal Polysaccharide, PPSV23 (PNEUMOVAX) 2017-10-09 00:00:00 Completed [facility] TDAP (ADACEL) VACCINE 2017-10-09 00:00:00 Completed [facility] Twinrix (hep a/hep b) 2017-10-09 00:00:00 Completed [facility] Pneumococcal Polysaccharide, PPSV23 (PNEUMOVAX) 2017-10-09 00:00:00 Completed [facility] TDAP (ADACEL) VACCINE 2017-10-09 00:00:00 Completed [facility] Twinrix (hep a/hep b) 2017-10-09 00:00:00 Completed [facility] Pneumococcal Polysaccharide, PPSV23 (PNEUMOVAX) 2017-10-09 00:00:00 Completed [facility] Pneumococcal 13 Conjugate, PCV13 (Prevnar 13) 2017-06-05 00:00:00 Completed [facility] Influenza Virus Vaccine Quad ID 18-64 YRS 2017-06-05 00:00:00 Completed [facility] Pneumococcal 13 Conjugate, PCV13 (Prevnar 13) 2017-06-05 00:00:00 Completed [facility] Influenza Virus Vaccine Quad ID 18-64 YRS 2017-06-05 00:00:00 Completed [facility] Pneumococcal 13 Conjugate, PCV13 (Prevnar 13) 2017-06-05 00:00:00 Completed [facility] Influenza Virus Vaccine Quad ID 18-64 YRS 2017-06-05 00:00:00 Completed [facility] Pneumococcal 13 Conjugate, PCV13 (Prevnar 13) 2017-06-05 00:00:00 Completed [facility] Influenza Virus Vaccine Quad ID 18-64 YRS 2017-06-05 00:00:00 Completed [facility] Pneumococcal 13 Conjugate, PCV13 (Prevnar 13) 2017-06-05 00:00:00 Completed [facility] Influenza Virus Vaccine Quad ID 18-64 YRS 2017-06-05 00:00:00 Completed [facility] Pneumococcal 13 Conjugate, PCV13 (Prevnar 13) 2017-06-05 00:00:00 Completed [facility] Influenza Virus Vaccine Quad ID 18-64 YRS 2017-06-05 00:00:00 Completed [facility] Pneumococcal 13 Conjugate, PCV13 (Prevnar 13) 2017-06-05 00:00:00 Completed [facility] Influenza Virus Vaccine Quad ID 18-64 YRS 2017-06-05 00:00:00 Completed [facility] Pneumococcal 13 Conjugate, PCV13 (Prevnar 13) 2017-06-05 00:00:00 Completed [facility] Influenza Virus Vaccine Quad ID 18-64 YRS 2017-06-05 00:00:00 Completed [facility] Pneumococcal 13 Conjugate, PCV13 (Prevnar 13) 2017-06-05 00:00:00 Completed [facility] Influenza Virus Vaccine Quad ID 18-64 YRS 2017-06-05 00:00:00 Completed [facility] Pneumococcal 13 Conjugate, PCV13 (Prevnar 13) 2017-06-05 00:00:00 Completed [facility] Influenza Virus Vaccine Quad ID 18-64 YRS 2017-06-05 00:00:00 Completed [facility] Pneumococcal 13 Conjugate, PCV13 (Prevnar 13) 2017-06-05 00:00:00 Completed [facility] Influenza Virus Vaccine Quad ID 18-64 YRS 2017-06-05 00:00:00 Completed [facility] Pneumococcal 13 Conjugate, PCV13 (Prevnar 13) 2017-06-05 00:00:00 Completed [facility] Influenza Virus Vaccine Quad ID 18-64 YRS 2017-06-05 00:00:00 Completed [facility] Pneumococcal 13 Conjugate, PCV13 (Prevnar 13) 2017-06-05 00:00:00 Completed [facility] Influenza Virus Vaccine Quad ID 18-64 YRS 2017-06-05 00:00:00 Completed [facility] Pneumococcal 13 Conjugate, PCV13 (Prevnar 13) 2017-06-05 00:00:00 Completed [facility] Influenza Virus Vaccine Quad ID 18-64 YRS 2017-06-05 00:00:00 Completed [facility] Pneumococcal 13 Conjugate, PCV13 (Prevnar 13) 2017-06-05 00:00:00 Completed [facility] Influenza Virus Vaccine Quad ID 18-64 YRS 2017-06-05 00:00:00 Completed [facility] Pneumococcal 13 Conjugate, PCV13 (Prevnar 13) 2017-06-05 00:00:00 Completed [facility] Influenza Virus Vaccine Quad ID 18-64 YRS 2017-06-05 00:00:00 Completed [facility] Pneumococcal 13 Conjugate, PCV13 (Prevnar 13) 2017-06-05 00:00:00 Completed [facility] Influenza Virus Vaccine Quad ID 18-64 YRS 2017-06-05 00:00:00 Completed [facility] Pneumococcal 13 Conjugate, PCV13 (Prevnar 13) 2017-06-05 00:00:00 Completed [facility] Influenza Virus Vaccine Quad ID 18-64 YRS 2017-06-05 00:00:00 Completed [facility] Pneumococcal 13 Conjugate, PCV13 (Prevnar 13) 2017-06-05 00:00:00 Completed [facility] Influenza Virus Vaccine Quad ID 18-64 YRS 2017-06-05 00:00:00 Completed [facility] Pneumococcal 13 Conjugate, PCV13 (Prevnar 13) 2017-06-05 00:00:00 Completed [facility] Influenza Virus Vaccine Quad ID 18-64 YRS 2017-06-05 00:00:00 Completed [facility] Pneumococcal 13 Conjugate, PCV13 (Prevnar 13) 2017-06-05 00:00:00 Completed [facility] Influenza Virus Vaccine Quad ID 18-64 YRS 2017-06-05 00:00:00 Completed [facility] Pneumococcal 13 Conjugate, PCV13 (Prevnar 13) 2017-06-05 00:00:00 Completed [facility] Influenza Virus Vaccine Quad ID 18-64 YRS 2017-06-05 00:00:00 Completed [facility] Pneumococcal 13 Conjugate, PCV13 (Prevnar 13) 2017-06-05 00:00:00 Completed [facility] Influenza Virus Vaccine Quad ID 18-64 YRS 2017-06-05 00:00:00 Completed [facility] Pneumococcal 13 Conjugate, PCV13 (Prevnar 13) 2017-06-05 00:00:00 Completed [facility] Influenza Virus Vaccine Quad ID 18-64 YRS 2017-06-05 00:00:00 Completed [facility] Pneumococcal 13 Conjugate, PCV13 (Prevnar 13) 2017-06-05 00:00:00 Completed [facility] Influenza Virus Vaccine Quad ID 18-64 YRS 2017-06-05 00:00:00 Completed [facility] Pneumococcal 13 Conjugate, PCV13 (Prevnar 13) 2017-06-05 00:00:00 Completed [facility] Influenza Virus Vaccine Quad ID 18-64 YRS 2017-06-05 00:00:00 Completed [facility] Pneumococcal 13 Conjugate, PCV13 (Prevnar 13) 2017-06-05 00:00:00 Completed [facility] Influenza Virus Vaccine Quad ID 18-64 YRS 2017-06-05 00:00:00 Completed Pneumococcal 13 Conjugate, PCV13 (Prevnar 13) 2017-06-05 00:00:00 Completed [facility] Influenza Virus Vaccine Quad ID 18-64 YRS 2017-06-05 00:00:00 Completed Pneumococcal 13 Conjugate, PCV13 (Prevnar 13) Unknown Completed [facility] Influenza Virus Vaccine Quad ID 18-64 YRS Unknown Completed [facility] Pneumococcal Polysaccharide, PPSV23 (PNEUMOVAX) Unknown Completed [facility] TDAP (ADACEL) VACCINE Unknown Completed [facility] Twinrix (hep a/hep b) Unknown Completed [facility] Influenza Virus Vaccine Quad .5 mL IM 6+ MO (FLUZONE/FLULAVAL/F LUARIX) Unknown Completed [facility] Influenza Virus Vaccine Recomb Quad IM, Preserv and ABX Free 18-64 YRS Unknown Completed [facility] SARS-COV-2 COVID-19 PFIZER VACCINE Unknown Completed [facility] Influenza Virus Vaccine Quad IM, Preserv and ABX Free 6 MO-64 YRS (FLUCELVAX) Unknown Completed [facility] SARS-COV-2 COVID-19 VACCINE 12 YRS+, BIVALENT 0.5ML, IM, (MODERNA-BLUE TOP) Unknown Completed [facility] Pneumococcal 13 Conjugate, PCV13 (Prevnar 13) Unknown Completed [facility] Influenza Virus Vaccine Quad ID 18-64 YRS Unknown Completed [facility] Pneumococcal Polysaccharide, PPSV23 (PNEUMOVAX) Unknown Completed [facility] TDAP (ADACEL) VACCINE Unknown Completed [facility] Twinrix (hep a/hep b) Unknown Completed [facility] Influenza Virus Vaccine Quad .5 mL IM 6+ MO (FLUZONE/FLULAVAL/F LUARIX) Unknown Completed [facility] Influenza Virus Vaccine Recomb Quad IM, Preserv and ABX Free 18-64 YRS Unknown Completed [facility] SARS-COV-2 COVID-19 PFIZER VACCINE Unknown Completed [facility] Influenza Virus Vaccine Quad IM, Preserv and ABX Free 6 MO-64 YRS (FLUCELVAX) Unknown Completed [facility] SARS-COV-2 COVID-19 VACCINE 12 YRS+, BIVALENT 0.5ML, IM, (MODERNA-BLUE TOP) Unknown Completed [facility] Pneumococcal 13 Conjugate, PCV13 (Prevnar 13) Unknown Completed [facility] Influenza Virus Vaccine Quad ID 18-64 YRS Unknown Completed [facility] Pneumococcal Polysaccharide, PPSV23 (PNEUMOVAX) Unknown Completed [facility] TDAP (ADACEL) VACCINE Unknown Completed [facility] Twinrix (hep a/hep b) Unknown Completed [facility] Influenza Virus Vaccine Quad .5 mL IM 6+ MO (FLUZONE/FLULAVAL/F LUARIX) Unknown Completed [facility] Influenza Virus Vaccine Recomb Quad IM, Preserv and ABX Free 18-64 YRS Unknown Completed [facility] SARS-COV-2 COVID-19 PFIZER VACCINE Unknown Completed [facility] Influenza Virus Vaccine Quad IM, Preserv and ABX Free 6 MO-64 YRS (FLUCELVAX) Unknown Completed [facility] SARS-COV-2 COVID-19 VACCINE 12 YRS+, BIVALENT 0.5ML, IM, (MODERNA-BLUE TOP) Unknown Completed [facility] Pneumococcal 13 Conjugate, PCV13 (Prevnar 13) Unknown Completed [facility] Influenza Virus Vaccine Quad ID 18-64 YRS Unknown Completed [facility] Pneumococcal Polysaccharide, PPSV23 (PNEUMOVAX) Unknown Completed [facility] TDAP (ADACEL) VACCINE Unknown Completed [facility] Twinrix (hep a/hep b) Unknown Completed [facility] Influenza Virus Vaccine Quad .5 mL IM 6+ MO (FLUZONE/FLULAVAL/F LUARIX) Unknown Completed [facility] Influenza Virus Vaccine Recomb Quad IM, Preserv and ABX Free 18-64 YRS Unknown Completed [facility] SARS-COV-2 COVID-19 PFIZER VACCINE Unknown Completed [facility] Influenza Virus Vaccine Quad IM, Preserv and ABX Free 6 MO-64 YRS (FLUCELVAX) Unknown Completed [facility] SARS-COV-2 COVID-19 VACCINE 12 YRS+, BIVALENT 0.5ML, IM, (MODERNA-BLUE TOP) Unknown Completed [facility] Pneumococcal 13 Conjugate, PCV13 (Prevnar 13) Unknown Completed [facility] Influenza Virus Vaccine Quad ID 18-64 YRS Unknown Completed [facility] Pneumococcal Polysaccharide, PPSV23 (PNEUMOVAX) Unknown Completed [facility] TDAP (ADACEL) VACCINE Unknown Completed [facility] Twinrix (hep a/hep b) Unknown Completed [facility] Influenza Virus Vaccine Quad .5 mL IM 6+ MO (FLUZONE/FLULAVAL/F LUARIX) Unknown Completed [facility] Influenza Virus Vaccine Recomb Quad IM, Preserv and ABX Free 18-64 YRS Unknown Completed [facility] SARS-COV-2 COVID-19 PFIZER VACCINE Unknown Completed [facility] Influenza Virus Vaccine Quad IM, Preserv and ABX Free 6 MO-64 YRS (FLUCELVAX) Unknown Completed [facility] SARS-COV-2 COVID-19 VACCINE 12 YRS+, BIVALENT 0.5ML, IM, (MODERNA-BLUE TOP) Unknown Completed [facility] Pneumococcal 13 Conjugate, PCV13 (Prevnar 13) Unknown Completed [facility] Influenza Virus Vaccine Quad ID 18-64 YRS Unknown Completed [facility] Pneumococcal Polysaccharide, PPSV23 (PNEUMOVAX) Unknown Completed [facility] TDAP (ADACEL) VACCINE Unknown Completed [facility] Twinrix (hep a/hep b) Unknown Completed [facility] Influenza Virus Vaccine Quad .5 mL IM 6+ MO (FLUZONE/FLULAVAL/F LUARIX) Unknown Completed [facility] Influenza Virus Vaccine Recomb Quad IM, Preserv and ABX Free 18-64 YRS Unknown Completed [facility] SARS-COV-2 COVID-19 PFIZER VACCINE Unknown Completed [facility] Influenza Virus Vaccine Quad IM, Preserv and ABX Free 6 MO-64 YRS (FLUCELVAX) Unknown Completed [facility] SARS-COV-2 COVID-19 VACCINE 12 YRS+, BIVALENT 0.5ML, IM, (MODERNA-BLUE TOP) Unknown Completed [facility] Pneumococcal 13 Conjugate, PCV13 (Prevnar 13) Unknown Completed [facility] Influenza Virus Vaccine Quad ID 18-64 YRS Unknown Completed [facility] Pneumococcal Polysaccharide, PPSV23 (PNEUMOVAX) Unknown Completed [facility] TDAP (ADACEL) VACCINE Unknown Completed [facility] Twinrix (hep a/hep b) Unknown Completed [facility] Influenza Virus Vaccine Quad .5 mL IM 6+ MO (FLUZONE/FLULAVAL/F LUARIX) Unknown Completed [facility] Influenza Virus Vaccine Recomb Quad IM, Preserv and ABX Free 18-64 YRS Unknown Completed [facility] SARS-COV-2 COVID-19 PFIZER VACCINE Unknown Completed [facility] Influenza Virus Vaccine Quad IM, Preserv and ABX Free 6 MO-64 YRS (FLUCELVAX) Unknown Completed [facility] SARS-COV-2 COVID-19 VACCINE 12 YRS+, BIVALENT 0.5ML, IM, (MODERNA-BLUE TOP) Unknown Completed [facility] Pneumococcal 13 Conjugate, PCV13 (Prevnar 13) Unknown Completed [facility] Influenza Virus Vaccine Quad ID 18-64 YRS Unknown Completed [facility] Pneumococcal Polysaccharide, PPSV23 (PNEUMOVAX) Unknown Completed [facility] TDAP (ADACEL) VACCINE Unknown Completed [facility] Twinrix (hep a/hep b) Unknown Completed [facility] Influenza Virus Vaccine Quad .5 mL IM 6+ MO (FLUZONE/FLULAVAL/F LUARIX) Unknown Completed [facility] Influenza Virus Vaccine Recomb Quad IM, Preserv and ABX Free 18-64 YRS Unknown Completed [facility] SARS-COV-2 COVID-19 PFIZER VACCINE Unknown Completed [facility] Influenza Virus Vaccine Quad IM, Preserv and ABX Free 6 MO-64 YRS (FLUCELVAX) Unknown Completed [facility] SARS-COV-2 COVID-19 VACCINE 12 YRS+, BIVALENT 0.5ML, IM, (MODERNA-BLUE TOP) Unknown Completed [facility] Pneumococcal 13 Conjugate, PCV13 (Prevnar 13) Unknown Completed [facility] Influenza Virus Vaccine Quad ID 18-64 YRS Unknown Completed [facility] Pneumococcal Polysaccharide, PPSV23 (PNEUMOVAX) Unknown Completed [facility] TDAP (ADACEL) VACCINE Unknown Completed [facility] Twinrix (hep a/hep b) Unknown Completed [facility] Influenza Virus Vaccine Quad .5 mL IM 6+ MO (FLUZONE/FLULAVAL/F LUARIX) Unknown Completed [facility] Influenza Virus Vaccine Recomb Quad IM, Preserv and ABX Free 18-64 YRS Unknown Completed [facility] SARS-COV-2 COVID-19 PFIZER VACCINE Unknown Completed [facility] Influenza Virus Vaccine Quad IM, Preserv and ABX Free 6 MO-64 YRS (FLUCELVAX) Unknown Completed [facility] SARS-COV-2 COVID-19 VACCINE 12 YRS+, BIVALENT 0.5ML, IM, (MODERNA-BLUE TOP) Unknown Completed [facility] Pneumococcal 13 Conjugate, PCV13 (Prevnar 13) Unknown Completed [facility] Influenza Virus Vaccine Quad ID 18-64 YRS Unknown Completed [facility] Pneumococcal Polysaccharide, PPSV23 (PNEUMOVAX) Unknown Completed [facility] TDAP (ADACEL) VACCINE Unknown Completed [facility] Twinrix (hep a/hep b) Unknown Completed [facility] Influenza Virus Vaccine Quad .5 mL IM 6+ MO (FLUZONE/FLULAVAL/F LUARIX) Unknown Completed [facility] Influenza Virus Vaccine Recomb Quad IM, Preserv and ABX Free 18-64 YRS Unknown Completed [facility] SARS-COV-2 COVID-19 PFIZER VACCINE Unknown Completed [facility] Influenza Virus Vaccine Quad IM, Preserv and ABX Free 6 MO-64 YRS (FLUCELVAX) Unknown Completed [facility] SARS-COV-2 COVID-19 VACCINE 12 YRS+, BIVALENT 0.5ML, IM, (MODERNA-BLUE TOP) Unknown Completed [facility] Pneumococcal 13 Conjugate, PCV13 (Prevnar 13) Unknown Completed [facility] Influenza Virus Vaccine Quad ID 18-64 YRS Unknown Completed [facility] Pneumococcal Polysaccharide, PPSV23 (PNEUMOVAX) Unknown Completed [facility] TDAP (ADACEL) VACCINE Unknown Completed [facility] Twinrix (hep a/hep b) Unknown Completed [facility] Influenza Virus Vaccine Quad .5 mL IM 6+ MO (FLUZONE/FLULAVAL/F LUARIX) Unknown Completed [facility] Influenza Virus Vaccine Recomb Quad IM, Preserv and ABX Free 18-64 YRS Unknown Completed [facility] SARS-COV-2 COVID-19 PFIZER VACCINE Unknown Completed [facility] Influenza Virus Vaccine Quad IM, Preserv and ABX Free 6 MO-64 YRS (FLUCELVAX) Unknown Completed [facility] SARS-COV-2 COVID-19 VACCINE 12 YRS+, BIVALENT 0.5ML, IM, (MODERNA-BLUE TOP) Unknown Completed [facility] Pneumococcal 13 Conjugate, PCV13 (Prevnar 13) Unknown Completed [facility] Influenza Virus Vaccine Quad ID 18-64 YRS Unknown Completed [facility] Pneumococcal Polysaccharide, PPSV23 (PNEUMOVAX) Unknown Completed [facility] TDAP (ADACEL) VACCINE Unknown Completed [facility] Twinrix (hep a/hep b) Unknown Completed [facility] Influenza Virus Vaccine Quad .5 mL IM 6+ MO (FLUZONE/FLULAVAL/F LUARIX) Unknown Completed [facility] Influenza Virus Vaccine Recomb Quad IM, Preserv and ABX Free 18-64 YRS Unknown Completed [facility] SARS-COV-2 COVID-19 PFIZER VACCINE Unknown Completed [facility] Influenza Virus Vaccine Quad IM, Preserv and ABX Free 6 MO-64 YRS (FLUCELVAX) Unknown Completed [facility] SARS-COV-2 COVID-19 VACCINE 12 YRS+, BIVALENT 0.5ML, IM, (MODERNA-BLUE TOP) Unknown Completed [facility] Pneumococcal 13 Conjugate, PCV13 (Prevnar 13) Unknown Completed [facility] Influenza Virus Vaccine Quad ID 18-64 YRS Unknown Completed [facility] Pneumococcal Polysaccharide, PPSV23 (PNEUMOVAX) Unknown Completed [facility] TDAP (ADACEL) VACCINE Unknown Completed [facility] Twinrix (hep a/hep b) Unknown Completed [facility] Influenza Virus Vaccine Quad .5 mL IM 6+ MO (FLUZONE/FLULAVAL/F LUARIX) Unknown Completed [facility] Influenza Virus Vaccine Recomb Quad IM, Preserv and ABX Free 18-64 YRS Unknown Completed [facility] SARS-COV-2 COVID-19 PFIZER VACCINE Unknown Completed [facility] Influenza Virus Vaccine Quad IM, Preserv and ABX Free 6 MO-64 YRS (FLUCELVAX) Unknown Completed [facility] SARS-COV-2 COVID-19 VACCINE 12 YRS+, BIVALENT 0.5ML, IM, (MODERNA-BLUE TOP) Unknown Completed [facility] Pneumococcal 13 Conjugate, PCV13 (Prevnar 13) Unknown Completed [facility] Influenza Virus Vaccine Quad ID 18-64 YRS Unknown Completed [facility] Pneumococcal Polysaccharide, PPSV23 (PNEUMOVAX) Unknown Completed [facility] TDAP (ADACEL) VACCINE Unknown Completed [facility] Twinrix (hep a/hep b) Unknown Completed [facility] Influenza Virus Vaccine Quad .5 mL IM 6+ MO (FLUZONE/FLULAVAL/F LUARIX) Unknown Completed [facility] Influenza Virus Vaccine Recomb Quad IM, Preserv and ABX Free 18-64 YRS Unknown Completed [facility] SARS-COV-2 COVID-19 PFIZER VACCINE Unknown Completed [facility] Influenza Virus Vaccine Quad IM, Preserv and ABX Free 6 MO-64 YRS (FLUCELVAX) Unknown Completed [facility] SARS-COV-2 COVID-19 VACCINE 12 YRS+, BIVALENT 0.5ML, IM, (MODERNA-BLUE TOP) Unknown Completed [facility] Pneumococcal 13 Conjugate, PCV13 (Prevnar 13) Unknown Completed [facility] Influenza Virus Vaccine Quad ID 18-64 YRS Unknown Completed [facility] Pneumococcal Polysaccharide, PPSV23 (PNEUMOVAX) Unknown Completed [facility] TDAP (ADACEL) VACCINE Unknown Completed [facility] Twinrix (hep a/hep b) Unknown Completed [facility] Influenza Virus Vaccine Quad .5 mL IM 6+ MO (FLUZONE/FLULAVAL/F LUARIX) Unknown Completed [facility] Influenza Virus Vaccine Recomb Quad IM, Preserv and ABX Free 18-64 YRS Unknown Completed [facility] SARS-COV-2 COVID-19 PFIZER VACCINE Unknown Completed [facility] Influenza Virus Vaccine Quad IM, Preserv and ABX Free 6 MO-64 YRS (FLUCELVAX) Unknown Completed [facility] SARS-COV-2 COVID-19 VACCINE 12 YRS+, BIVALENT 0.5ML, IM, (MODERNA-BLUE TOP) Unknown Completed [facility] Pneumococcal 13 Conjugate, PCV13 (Prevnar 13) Unknown Completed [facility] Influenza Virus Vaccine Quad ID 18-64 YRS Unknown Completed [facility] Pneumococcal Polysaccharide, PPSV23 (PNEUMOVAX) Unknown Completed [facility] TDAP (ADACEL) VACCINE Unknown Completed [facility] Twinrix (hep a/hep b) Unknown Completed [facility] Influenza Virus Vaccine Quad .5 mL IM 6+ MO (FLUZONE/FLULAVAL/F LUARIX) Unknown Completed [facility] Influenza Virus Vaccine Recomb Quad IM, Preserv and ABX Free 18-64 YRS Unknown Completed [facility] SARS-COV-2 COVID-19 PFIZER VACCINE Unknown Completed [facility] Influenza Virus Vaccine Quad IM, Preserv and ABX Free 6 MO-64 YRS (FLUCELVAX) Unknown Completed [facility] SARS-COV-2 COVID-19 VACCINE 12 YRS+, BIVALENT 0.5ML, IM, (MODERNA-BLUE TOP) Unknown Completed [facility] Pneumococcal 13 Conjugate, PCV13 (Prevnar 13) Unknown Completed [facility] Influenza Virus Vaccine Quad ID 18-64 YRS Unknown Completed [facility] Pneumococcal Polysaccharide, PPSV23 (PNEUMOVAX) Unknown Completed [facility] TDAP (ADACEL) VACCINE Unknown Completed [facility] Twinrix (hep a/hep b) Unknown Completed [facility] Influenza Virus Vaccine Quad .5 mL IM 6+ MO (FLUZONE/FLULAVAL/F LUARIX) Unknown Completed [facility] Influenza Virus Vaccine Recomb Quad IM, Preserv and ABX Free 18-64 YRS Unknown Completed [facility] SARS-COV-2 COVID-19 PFIZER VACCINE Unknown Completed [facility] Influenza Virus Vaccine Quad IM, Preserv and ABX Free 6 MO-64 YRS (FLUCELVAX) Unknown Completed [facility] SARS-COV-2 COVID-19 VACCINE 12 YRS+, BIVALENT 0.5ML, IM, (MODERNA-BLUE TOP) Unknown Completed [facility] Pneumococcal 13 Conjugate, PCV13 (Prevnar 13) Unknown Completed [facility] Influenza Virus Vaccine Quad ID 18-64 YRS Unknown Completed [facility] Pneumococcal Polysaccharide, PPSV23 (PNEUMOVAX) Unknown Completed [facility] TDAP (ADACEL) VACCINE Unknown Completed [facility] Twinrix (hep a/hep b) Unknown Completed [facility] Influenza Virus Vaccine Quad .5 mL IM 6+ MO (FLUZONE/FLULAVAL/F LUARIX) Unknown Completed [facility] Influenza Virus Vaccine Recomb Quad IM, Preserv and ABX Free 18-64 YRS Unknown Completed [facility] SARS-COV-2 COVID-19 PFIZER VACCINE Unknown Completed [facility] Influenza Virus Vaccine Quad IM, Preserv and ABX Free 6 MO-64 YRS (FLUCELVAX) Unknown Completed [facility] SARS-COV-2 COVID-19 VACCINE 12 YRS+, BIVALENT 0.5ML, IM, (MODERNA-BLUE TOP) Unknown Completed [facility] Pneumococcal 13 Conjugate, PCV13 (Prevnar 13) Unknown Completed [facility] Influenza Virus Vaccine Quad ID 18-64 YRS Unknown Completed [facility] Pneumococcal Polysaccharide, PPSV23 (PNEUMOVAX) Unknown Completed [facility] TDAP (ADACEL) VACCINE Unknown Completed [facility] Twinrix (hep a/hep b) Unknown Completed [facility] Influenza Virus Vaccine Quad .5 mL IM 6+ MO (FLUZONE/FLULAVAL/F LUARIX) Unknown Completed [facility] Influenza Virus Vaccine Recomb Quad IM, Preserv and ABX Free 18-64 YRS Unknown Completed [facility] SARS-COV-2 COVID-19 PFIZER VACCINE Unknown Completed [facility] Influenza Virus Vaccine Quad IM, Preserv and ABX Free 6 MO-64 YRS (FLUCELVAX) Unknown Completed [facility] SARS-COV-2 COVID-19 VACCINE 12 YRS+, BIVALENT 0.5ML, IM, (MODERNA-BLUE TOP) Unknown Completed [facility] Pneumococcal 13 Conjugate, PCV13 (Prevnar 13) Unknown Completed [facility] Influenza Virus Vaccine Quad ID 18-64 YRS Unknown Completed [facility] Pneumococcal Polysaccharide, PPSV23 (PNEUMOVAX) Unknown Completed [facility] TDAP (ADACEL) VACCINE Unknown Completed [facility] Twinrix (hep a/hep b) Unknown Completed [facility] Influenza Virus Vaccine Quad .5 mL IM 6+ MO (FLUZONE/FLULAVAL/F LUARIX) Unknown Completed [facility] Influenza Virus Vaccine Recomb Quad IM, Preserv and ABX Free 18-64 YRS Unknown Completed [facility] SARS-COV-2 COVID-19 PFIZER VACCINE Unknown Completed [facility] Influenza Virus Vaccine Quad IM, Preserv and ABX Free 6 MO-64 YRS (FLUCELVAX) Unknown Completed [facility] SARS-COV-2 COVID-19 VACCINE 12 YRS+, BIVALENT 0.5ML, IM, (MODERNA-BLUE TOP) Unknown Completed [facility] Pneumococcal 13 Conjugate, PCV13 (Prevnar 13) Unknown Completed [facility] Influenza Virus Vaccine Quad ID 18-64 YRS Unknown Completed [facility] Pneumococcal Polysaccharide, PPSV23 (PNEUMOVAX) Unknown Completed [facility] TDAP (ADACEL) VACCINE Unknown Completed [facility] Twinrix (hep a/hep b) Unknown Completed [facility] Influenza Virus Vaccine Quad .5 mL IM 6+ MO (FLUZONE/FLULAVAL/F LUARIX) Unknown Completed [facility] Influenza Virus Vaccine Recomb Quad IM, Preserv and ABX Free 18-64 YRS Unknown Completed [facility] SARS-COV-2 COVID-19 PFIZER VACCINE Unknown Completed [facility] Influenza Virus Vaccine Quad IM, Preserv and ABX Free 6 MO-64 YRS (FLUCELVAX) Unknown Completed [facility] SARS-COV-2 COVID-19 VACCINE 12 YRS+, BIVALENT 0.5ML, IM, (MODERNA-BLUE TOP) Unknown Completed [facility] Pneumococcal 13 Conjugate, PCV13 (Prevnar 13) Unknown Completed [facility] Influenza Virus Vaccine Quad ID 18-64 YRS Unknown Completed [facility] Pneumococcal Polysaccharide, PPSV23 (PNEUMOVAX) Unknown Completed [facility] TDAP (ADACEL) VACCINE Unknown Completed [facility] Twinrix (hep a/hep b) Unknown Completed [facility] Influenza Virus Vaccine Quad .5 mL IM 6+ MO (FLUZONE/FLULAVAL/F LUARIX) Unknown Completed [facility] Influenza Virus Vaccine Recomb Quad IM, Preserv and ABX Free 18-64 YRS Unknown Completed [facility] SARS-COV-2 COVID-19 PFIZER VACCINE Unknown Completed [facility] Influenza Virus Vaccine Quad IM, Preserv and ABX Free 6 MO-64 YRS (FLUCELVAX) Unknown Completed [facility] SARS-COV-2 COVID-19 VACCINE 12 YRS+, BIVALENT 0.5ML, IM, (MODERNA-BLUE TOP) Unknown Completed [facility] Pneumococcal 13 Conjugate, PCV13 (Prevnar 13) Unknown Completed [facility] Influenza Virus Vaccine Quad ID 18-64 YRS Unknown Completed [facility] Pneumococcal Polysaccharide, PPSV23 (PNEUMOVAX) Unknown Completed [facility] TDAP (ADACEL) VACCINE Unknown Completed [facility] Twinrix (hep a/hep b) Unknown Completed [facility] Influenza Virus Vaccine Quad .5 mL IM 6+ MO (FLUZONE/FLULAVAL/F LUARIX) Unknown Completed [facility] Influenza Virus Vaccine Recomb Quad IM, Preserv and ABX Free 18-64 YRS Unknown Completed [facility] SARS-COV-2 COVID-19 PFIZER VACCINE Unknown Completed [facility] Influenza Virus Vaccine Quad IM, Preserv and ABX Free 6 MO-64 YRS (FLUCELVAX) Unknown Completed [facility] SARS-COV-2 COVID-19 VACCINE 12 YRS+, BIVALENT 0.5ML, IM, (MODERNA-BLUE TOP) Unknown Completed [facility] Pneumococcal 13 Conjugate, PCV13 (Prevnar 13) Unknown Completed [facility] Influenza Virus Vaccine Quad ID 18-64 YRS Unknown Completed [facility] Pneumococcal Polysaccharide, PPSV23 (PNEUMOVAX) Unknown Completed [facility] TDAP (ADACEL) VACCINE Unknown Completed [facility] Twinrix (hep a/hep b) Unknown Completed [facility] Influenza Virus Vaccine Quad .5 mL IM 6+ MO (FLUZONE/FLULAVAL/F LUARIX) Unknown Completed [facility] Influenza Virus Vaccine Recomb Quad IM, Preserv and ABX Free 18-64 YRS Unknown Completed [facility] SARS-COV-2 COVID-19 PFIZER VACCINE Unknown Completed [facility] Influenza Virus Vaccine Quad IM, Preserv and ABX Free 6 MO-64 YRS (FLUCELVAX) Unknown Completed [facility] SARS-COV-2 COVID-19 VACCINE 12 YRS+, BIVALENT 0.5ML, IM, (MODERNA-BLUE TOP) Unknown Completed [facility] Pneumococcal 13 Conjugate, PCV13 (Prevnar 13) Unknown Completed [facility] Influenza Virus Vaccine Quad ID 18-64 YRS Unknown Completed [facility] Pneumococcal Polysaccharide, PPSV23 (PNEUMOVAX) Unknown Completed [facility] TDAP (ADACEL) VACCINE Unknown Completed [facility] Twinrix (hep a/hep b) Unknown Completed [facility] Influenza Virus Vaccine Quad .5 mL IM 6+ MO (FLUZONE/FLULAVAL/F LUARIX) Unknown Completed [facility] Influenza Virus Vaccine Recomb Quad IM, Preserv and ABX Free 18-64 YRS Unknown Completed [facility] SARS-COV-2 COVID-19 PFIZER VACCINE Unknown Completed [facility] Influenza Virus Vaccine Quad IM, Preserv and ABX Free 6 MO-64 YRS (FLUCELVAX) Unknown Completed [facility] SARS-COV-2 COVID-19 VACCINE 12 YRS+, BIVALENT 0.5ML, IM, (MODERNA-BLUE TOP) Unknown Completed [facility] Pneumococcal 13 Conjugate, PCV13 (Prevnar 13) Unknown Completed [facility] Influenza Virus Vaccine Quad ID 18-64 YRS Unknown Completed [facility] Pneumococcal Polysaccharide, PPSV23 (PNEUMOVAX) Unknown Completed [facility] TDAP (ADACEL) VACCINE Unknown Completed [facility] Twinrix (hep a/hep b) Unknown Completed [facility] Influenza Virus Vaccine Quad .5 mL IM 6+ MO (FLUZONE/FLULAVAL/F LUARIX) Unknown Completed [facility] Influenza Virus Vaccine Recomb Quad IM, Preserv and ABX Free 18-64 YRS Unknown Completed [facility] SARS-COV-2 COVID-19 PFIZER VACCINE Unknown Completed [facility] Influenza Virus Vaccine Quad IM, Preserv and ABX Free 6 MO-64 YRS (FLUCELVAX) Unknown Completed [facility] SARS-COV-2 COVID-19 VACCINE 12 YRS+, BIVALENT 0.5ML, IM, (MODERNA-BLUE TOP) Unknown Completed [facility] Pneumococcal 13 Conjugate, PCV13 (Prevnar 13) Unknown Completed [facility] Influenza Virus Vaccine Quad ID 18-64 YRS Unknown Completed [facility] Pneumococcal Polysaccharide, PPSV23 (PNEUMOVAX) Unknown Completed [facility] TDAP (ADACEL) VACCINE Unknown Completed [facility] Twinrix (hep a/hep b) Unknown Completed [facility] Influenza Virus Vaccine Quad .5 mL IM 6+ MO (FLUZONE/FLULAVAL/F LUARIX) Unknown Completed [facility] Influenza Virus Vaccine Recomb Quad IM, Preserv and ABX Free 18-64 YRS Unknown Completed [facility] SARS-COV-2 COVID-19 PFIZER VACCINE Unknown Completed [facility] Influenza Virus Vaccine Quad IM, Preserv and ABX Free 6 MO-64 YRS (FLUCELVAX) Unknown Completed [facility] SARS-COV-2 COVID-19 VACCINE 12 YRS+, BIVALENT 0.5ML, IM, (MODERNA-BLUE TOP) Unknown Completed [facility] Pneumococcal 13 Conjugate, PCV13 (Prevnar 13) Unknown Completed [facility] Influenza Virus Vaccine Quad ID 18-64 YRS Unknown Completed [facility] Pneumococcal Polysaccharide, PPSV23 (PNEUMOVAX) Unknown Completed [facility] TDAP (ADACEL) VACCINE Unknown Completed [facility] Twinrix (hep a/hep b) Unknown Completed [facility] Influenza Virus Vaccine Quad .5 mL IM 6+ MO (FLUZONE/FLULAVAL/F LUARIX) Unknown Completed [facility] Influenza Virus Vaccine Recomb Quad IM, Preserv and ABX Free 18-64 YRS Unknown Completed [facility] SARS-COV-2 COVID-19 PFIZER VACCINE Unknown Completed [facility] Influenza Virus Vaccine Quad IM, Preserv and ABX Free 6 MO-64 YRS (FLUCELVAX) Unknown Completed [facility] SARS-COV-2 COVID-19 VACCINE 12 YRS+, BIVALENT 0.5ML, IM, (MODERNA-BLUE TOP) Unknown Completed [facility] Pneumococcal 13 Conjugate, PCV13 (Prevnar 13) Unknown Completed [facility] Influenza Virus Vaccine Quad ID 18-64 YRS Unknown Completed [facility] Pneumococcal Polysaccharide, PPSV23 (PNEUMOVAX) Unknown Completed [facility] TDAP (ADACEL) VACCINE Unknown Completed [facility] Twinrix (hep a/hep b) Unknown Completed [facility] Influenza Virus Vaccine Quad .5 mL IM 6+ MO (FLUZONE/FLULAVAL/F LUARIX) Unknown Completed [facility] Influenza Virus Vaccine Recomb Quad IM, Preserv and ABX Free 18-64 YRS Unknown Completed [facility] SARS-COV-2 COVID-19 PFIZER VACCINE Unknown Completed [facility] Influenza Virus Vaccine Quad IM, Preserv and ABX Free 6 MO-64 YRS (FLUCELVAX) Unknown Completed [facility] SARS-COV-2 COVID-19 VACCINE 12 YRS+, BIVALENT 0.5ML, IM, (MODERNA-BLUE TOP) Unknown Completed [facility] Pneumococcal 13 Conjugate, PCV13 (Prevnar 13) Unknown Completed [facility] Influenza Virus Vaccine Quad ID 18-64 YRS Unknown Completed [facility] Pneumococcal Polysaccharide, PPSV23 (PNEUMOVAX) Unknown Completed [facility] TDAP (ADACEL) VACCINE Unknown Completed [facility] Twinrix (hep a/hep b) Unknown Completed [facility] Influenza Virus Vaccine Quad .5 mL IM 6+ MO (FLUZONE/FLULAVAL/F LUARIX) Unknown Completed [facility] Influenza Virus Vaccine Recomb Quad IM, Preserv and ABX Free 18-64 YRS Unknown Completed [facility] SARS-COV-2 COVID-19 PFIZER VACCINE Unknown Completed [facility] Influenza Virus Vaccine Quad IM, Preserv and ABX Free 6 MO-64 YRS (FLUCELVAX) Unknown Completed [facility] SARS-COV-2 COVID-19 VACCINE 12 YRS+, BIVALENT 0.5ML, IM, (MODERNA-BLUE TOP) Unknown Completed [facility] Vital Signs Vital Name Observation Time Observation Value Comments S ource Systolic blood pressure 2024-11-25 18:09:00 146 mm[Hg] asymtomatic [facility] Diastolic blood pressure 2024-11-25 18:09:00 93 mm[Hg] asymtomatic [facility] Heart rate 2024-11-25 18:09:00 82 /min [facility] Body temperature 2024-11-25 18:09:00 36.67 Neli [facility] Respiratory rate 2024-11-25 18:09:00 18 /min [facility] Body height 2024-11-25 18:09:00 170.2 cm [facility] Body weight 2024-11-25 18:09:00 71.305 kg [facility] BMI 2024-11-25 18:09:00 24.62 kg/m2 [facility] Oxygen saturation in Arterial blood by Pulse oximetry 2024-11-25 18:09:00 97 /min [facility] Systolic blood pressure 2023-05-03 15:03:00 139 mm[Hg] [facility] Diastolic blood pressure 2023-05-03 15:03:00 78 mm[Hg] [facility] Heart rate 2023-05-03 15:03:00 78 /min [facility] Body temperature 2023-05-03 15:03:00 36.44 Neli [facility] Respiratory rate 2023-05-03 15:03:00 18 /min [facility] Body height 2023-05-03 15:03:00 170.2 cm [facility] Body weight 2023-05-03 15:03:00 73.71 kg [facility] BMI 2023-05-03 15:03:00 25.45 kg/m2 [facility] Oxygen saturation in Arterial blood by Pulse oximetry 2023-05-03 15:03:00 100 /min [facility] Systolic blood pressure 2023-02-16 21:47:00 105 mm[Hg] [place] [facility] Diastolic blood pressure 2023-02-16 21:47:00 64 mm[Hg] [facility] Heart rate 2023-02-16 21:47:00 78 /min Unive [facility] Body temperature 2023-02-16 21:47:00 36.56 Neli [facility] Respiratory rate 2023-02-16 21:47:00 18 /min [facility] Body height 2023-02-16 21:47:00 170.2 cm [facility] Body weight 2023-02-16 21:47:00 76.204 kg [facility] BMI 2023-02-16 21:47:00 26.31 kg/m2 [facility] Oxygen saturation in Arterial blood by Pulse oximetry 2023-02-16 21:47:00 96 /min room air [facility] Systolic blood pressure 2022-06-20 15:30:00 132 mm[Hg] [facility] Diastolic blood pressure 2022-06-20 15:30:00 74 mm[Hg] [facility] Heart rate 2022-06-20 15:25:00 87 /min Unive [facility] Body temperature 2022-06-20 15:25:00 36.17 Neli [facility] Respiratory rate 2022-06-20 15:25:00 18 /min [facility] Body height 2022-06-20 15:25:00 170.2 cm [facility] Body weight 2022-06-20 15:25:00 64.411 kg [facility] BMI 2022-06-20 15:25:00 22.24 kg/m2 [facility] Systolic blood pressure 2022-05-02 21:37:00 134 mm[Hg] [facility] Diastolic blood pressure 2022-05-02 21:37:00 85 mm[Hg] [facility] Heart rate 2022-05-02 21:36:00 86 /min Unive [facility] Body temperature 2022-05-02 21:36:00 36.44 Neli [facility] Body height 2022-05-02 21:36:00 170.2 cm [facility] Body weight 2022-05-02 21:36:00 63.504 kg [facility] BMI 2022-05-02 21:36:00 21.93 kg/m2 [facility] Systolic blood pressure 2021-10-18 21:08:00 140 mm[Hg] [facility] Diastolic blood pressure 2021-10-18 21:08:00 87 mm[Hg] [facility] Heart rate 2021-10-18 21:08:00 84 /min Unive [facility] Body temperature 2021-10-18 21:05:00 36.78 Neli [facility] Respiratory rate 2021-10-18 21:05:00 16 /min [facility] Body height 2021-10-18 21:05:00 167.6 cm [facility] Body weight 2021-10-18 21:05:00 64.093 kg [facility] BMI 2021-10-18 21:05:00 22.81 kg/m2 [facility] Systolic blood pressure 2024-11-25 18:09:00 146 mm[Hg] asymtomatic [facility] Diastolic blood pressure 2024-11-25 18:09:00 93 mm[Hg] asymtomatic [facility] Heart rate 2024-11-25 18:09:00 82 /min Unive [facility] Body temperature 2024-11-25 18:09:00 36.67 Neli [facility] Respiratory rate 2024-11-25 18:09:00 18 /min [facility] Body height 2024-11-25 18:09:00 170.2 cm [facility] Body weight 2024-11-25 18:09:00 71.305 kg [facility] BMI 2024-11-25 18:09:00 24.62 kg/m2 [facility] Oxygen saturation in Arterial blood by Pulse oximetry 2024-11-25 18:09:00 97 /min [facility] Body Temperature 2024-06-20 14:21:00 98.20 degrees Octavio Lan Heart Rate 2024-06-20 14:21:00 83.00 /min Leesa en F Riky Respiratory Rate 2024-06-20 14:21:00 16.00 /min Octavio Wes Lan BP Systolic 2024-06-20 14:21:00 134 mm[Hg] Step hen F Riky BP Diastolic 2024-06-20 14:21:00 86 mm[Hg] Pratik phen F Riky Weight Measured 2024-06-20 14:21:00 161.00 pounds Octavio Lan Height Measured 2024-06-20 14:21:00 67.00 inches Octavio Wes Lan BP Systolic 2023-04-02 11:49:00 125 mm[Hg] Step hen F Riky BP Diastolic 2023-04-02 11:49:00 85 mm[Hg] Pratik phen F Riky Weight Measured 2023-04-02 11:49:00 164.00 pounds Octavio Lan Height Measured 2023-04-02 11:49:00 67.00 inches Octavio Lan Body Temperature 2023-04-02 11:49:00 98.60 degrees Octavio Wes Lan Heart Rate 2023-04-02 11:49:00 64.00 /min Leesa en Wes Lan Respiratory Rate 2023-04-02 11:49:00 Octavio Wes Lan Procedures Procedure Date / Time Performed Performing Clinician Source PNEUMOCOCCAL 20 CONJUGATE (PREVNAR 20) VACCINE 2024-11-25 18:50:14 Evelio Thorne [facility] SARS-COV-2 COVID 19 GLEN SUCROSE VACCINE 12+, , 0.3 ML (30 MCG), IM PFIZER (CORNELL TOP) 2024-11-25 18:50:14 Evelio Thorne [facility] FLU VACC (), 6 MO-64 YRS, .5ML, IM, TIV (FLUCELVAX) 2024-11-25 18:50:14 Evelio Thorne [facility] FLU VACC (), 6 MO-64 YRS, .5ML, IM, TIV (FLUCELVAX) 2024-11-25 18:50:14 Evelio Thorne [facility] SARS-COV-2 COVID 19 GLEN SUCROSE VACCINE 12+, , 0.3 ML (30 MCG), IM PFIZER (CORNELL TOP) 2024-11-25 18:50:14 [facility] PNEUMOCOCCAL 20 CONJUGATE (PREVNAR 20) VACCINE 2024-11-25 18:50:14 [facility] AUTHORIZATION TO RELEASE PHI TO [facility] 2023-07-20 06:01:00 Doctor Unassigned, [place] [facility] MR LUMBAR SPINE WO CONTRAST 2023-06-22 17:11:18 Prudence Flores [facility] CONSENT/REFUSAL FOR DIAGNOSIS AND TREATMENT 2023-06-22 16:25:22 Doctor Unassigned, [place] [facility] HIGH RISK HPV-THIN PREP 2022-06-20 17:04:00 Michelle Montalvo [facility] PAP SMEAR-LIQUID BASED-CP 2022-06-20 17:04:00 Danyelle Montalvo [facility] ASSIGNMENT OF BENEFITS 2022-06-20 15:18:10 Docto r Unassigned, [place] [facility] FLU VACC (), 6 MO-64 YRS, .5ML, IM, QUAD (FLUCELVAX) 2022-05-02 22:01:31 Sobeida Pollard [facility] SARS-COV-2 COVID-19 VACCINE 18 YRS+, BIVALENT 0.5ML, IM (MODERNA BOOSTER) 2022-05-02 22:01:31 Sobeida Pollard [facility] AUTHORIZATION FOR RELEASE OF PHI 2022-01-15 05:01:00 Doctor Unassigned, [place] [facility] FLU VACC (), 2-64 YRS, .5ML, IM, QUAD (FLUCELVAX) 2021-10-18 23:00:52 Chris Linder [facility] AUTHORIZATION FOR RELEASE OF PHI 2021-09-21 06:01:00 Doctor Unassigned, [place] [facility] HCV ANTIBODY 2017-06-05 18:22:00 Chris Linder [facility] Encounters Start Date/Time End Date/Time Encounter Type Admission Type Attending [facility] Care Facility Care Department Encounter ID Source 2023-01-11 13:08:33 Outpatient [id number] Epic 2022 10:48:23 Outpatient SHARON [facility] [id number] [facility] 2024-11-26 00:00:00 2024-12-27 18:17:23 Patient Secure Msg Doctor Unassigned, [place] Doctor Unassigned, [place] [facility] 1.2.840.114 350.1.13.10 4.2.7.2.686 [id number] [facility] 2024-12-18 00:00:00 2024-12-18 00:00:00 Evelio Hamilton 1..840.1 [id number] 3.104.2.7 .3.221484 .8 [id number] [facility] 2024-12-16 16:30:00 2024-12-16 16:30:00 Outpatient CHRIS ALFONSO LUCAS [facility] [id number] [facility] 2024-12-05 09:50:00 2024-12-05 09:50:00 Outpatient Mia [facility] [id number] [facility] 2024-12-03 00:00:00 2024-12-03 00:00:00 Patient Secure Msg Doctor Unassigned, [place] 1..840.1 [id number] 3.104.2.7 .3.492678 .8 [id number] [facility] 2024-11-26 00:00:00 2024-12-02 13:47:10 Refill Chris Linder 1.2.840.1 [id number] 3.104.2.7 .3.882884 .8 [id number] [facility] 2024-11-25 13:30:00 2024-11-25 14:00:00 Office Visit Chris Linder 1.2.840.1 [id number] 3.104.2.7 .3.842444 .8 [id number] [facility] 2024-11-25 13:30:00 2024-11-25 13:30:00 Outpatient R CHRIS LINDER LUCAS [facility] [id number] [facility] 2024-11-25 00:00:00 2024-11-25 00:00:00 Travel 1.2.840.1 [id number] 3.104.2.7 .3.796676 .8 1.2.840.114 350.1.13.10 4.2.7.3.698 [id number] [facility] 2019-02-17 00:00:00 2024-09-27 03:09:12 Orders Only hSruthi Brooks Stacey [facility] 1.2840.114 350.1.13.10 4.2.7.2.686 [id number] [facility] 2023-05-02 00:00:00 2024-09-27 02:38:11 Orders Only Erin Alvarado Perla [facility] 1.2.840.114 350.1.13.10 4.2.7.2.686 [id number] [facility] 2023-10-23 00:00:00 2024-09-27 02:34:29 Orders Only Erin Alvarado, [facility] 1.2.840.114 350.1.13.10 4.2.7.2.686 [id number] [facility] 2023-11-26 00:00:00 2024-09-27 02:20:18 Orders Only Erin Alvarado, [facility] 1.2.840.114 350.1.13.10 4.2.7.2.686 [id number] [facility] 2024-09-16 16:00:00 2024-09-16 16:00:00 Outpatient CHRIS ALFONSO LUCAS [facility] [id number] [facility] 2024-07-22 16:00:00 2024-07-22 16:00:00 Outpatient CHRIS ALFONSO LUCAS [facility] [id number] [facility] 2024-06-19 00:00:00 2024-06-23 15:15:56 Telephone Chris Linder [facility] 1.2.840.114 350.1.13.10 4.2.7.2.686 [id number] [facility] 2024-06-20 14:08:04 2024-06-20 14:08:04 Outpatient SFA [facility] 1108 Octavio Lan 2024-06-20 00:00:00 2024-06-20 00:00:00 Outpatient Visit SFA [id number] Octavio Lan 2024-06-17 16:00:00 2024-06-17 16:00:00 Outpatient CHRIS ALFONSO LUCAS [facility] [id number] [facility] 2024-06-17 00:00:00 2024-06-17 11:00:31 Telephone Kailash Chris Toney [facility] 1.2.840.114 350.1.13.10 4.2.7.2.686 [id number] [facility] 2024-06-10 15:00:00 2024-06-10 15:00:00 Outpatient CHRIS ALFONSO LUCAS [facility] [id number] [facility] 2024-06-03 10:15:00 2024-06-03 10:15:00 Outpatient IZABEL GAFFNEY [facility] [id number] [facility] 2024-05-26 10:15:00 2024-05-26 10:15:00 Outpatient IZABEL GAFFNEY [facility] [id number] [facility] 2024-05-21 09:45:00 2024-05-21 09:45:00 Outpatient IZABEL GAFFNEY [facility] [id number] [facility] 2024-05-21 09:20:00 2024-05-21 09:20:00 Outpatient DAV GALLEGOS FAKEHA [facility] [id number] [facility] 2024-05-15 00:00:00 2024-05-15 14:29:54 Telephone Chris Linder Toney [facility] 1.2.840.114 350.1.13.10 4.2.7.2.686 [id number] [facility] 2024-04-15 16:30:00 2024-04-15 16:30:00 Outpatient CHRIS ALFONSO LUCAS [facility] [id number] [facility] 2024-04-15 14:00:00 2024-04-15 14:00:00 Outpatient CHRIS ALFONSO LUCAS [facility] [id number] [facility] 2024-03-25 00:00:00 2024-04-07 13:30:39 Refill Chris Linder [facility] 1.2.840.114 350.1.13.10 4.2.7.2.686 [id number] [facility] 2024-04-01 15:00:00 2024-04-01 15:00:00 Outpatient CHRIS ALFONSO LUCAS [facility] [id number] [facility] 2024-03-27 00:00:00 2024-03-27 16:26:17 Telephone Chris Linder [facility] 1.2.840.114 350.1.13.10 4.2.7.2.686 [id number] [facility] 2024-03-09 00:00:00 2024-03-11 14:03:[address] [facility] 1.2.840.114 350.1.13.10 4.2.7.2.686 [id number] [facility] 2024-02-27 00:00:00 2024-02-29 17:21:04 Refjimbo Linder Chris [facility] 1.2.840.114 350.1.13.10 4.2.7.2.686 [id number] [facility] 2024-01-20 00:00:00 2024-01-22 15:39:19 Refill Kailash [facility] 1.2.840.114 350.1.13.10 4.2.7.2.686 [id number] [facility] 2024-01-15 10:40:00 2024-01-15 10:40:00 Outpatient PRUDENCE TATE [facility] [id number] [facility] 2023-12-24 00:00:00 2023-12-26 16:42:49 Refill Kailash [facility] 1.840.114 350.1.13.10 4.2.7.2.686 [id number] [facility] 2023-12-12 00:00:00 2023-12-12 00:00:00 Refill Kailash [facility] 1.84.114 350.1.13.10 4.2.7.2.686 [id number] [facility] 2023-11-30 16:00:00 2023-11-30 16:00:00 Outpatient PRUDENCE TATE [facility] [id number] [facility] 2023-11-27 15:25:17 2023-11-27 15:25:17 Outpatient S[facility] [id number] Octavio Lan 2023-11-19 00:00:00 2023-11-19 00:00:00 Prudence Mendoza [facility] 1..840.114 350.1.13.10 4.2.7.2.686 [id number] [facility] 2023-11-01 10:20:00 2023-11-01 10:20:00 Outpatient PRUDENCE TATE [facility] [id number] [facility] 2023-10-15 00:00:00 2023-10-15 00:00:00 Prudence Mendoza [facility] 1..840.114 350.1.13.10 4.2.7.2.686 [id number] [facility] 2023-09-20 00:00:00 2023-09-20 00:00:00 Refill Kailash [facility] 1.2.840.114 350.1.13.10 4.2.7.2.686 [id number] [facility] 2023-09-20 00:00:00 2023-09-20 00:00:00 Refill Prudence Flores [place] [facility] AMELIE?[facility] 1.2840.114 350.1.13.10 4.2.7.2.686 [id number] [facility] 2023-08-31 00:00:00 2023-08-31 00:00:00 Telephone Prudence Flores [facility] 1.2840.114 350.1.13.10 4.2.7.2.686 [id number] [facility] 2023-08-17 00:00:00 2023-08-17 00:00:00 Refill Prudence Flores [place] [facility] 1.2840.114 350.1.13.10 4.2.7.2.686 [id number] [facility] 2023-07-20 00:00:00 2023-07-20 00:00:00 Orders Only Doctor Unassigned, [place] [facility] 1.2840.114 350.1.13.10 4.2.7.2.686 [id number] [facility] 2023-07-09 00:00:00 2023-07-09 00:00:00 Telephone Prudence Flores [place] [facility] 1.2840.114 350.1.13.10 4.2.7.2.686 [id number] [facility] 2023-06-22 10:25:30 2023-06-22 23:59:00 Outpatient R PRUDENCE FLORES [facility] [id number] [facility] 2023-06-22 10:25:30 2023-06-22 23:59:00 Hospital Encounter Prudence Flores [facility] 1..114 350.1.13.10 4.2.7.2.686 [id number] [facility] 2023-06-22 00:00:00 2023-06-22 00:00:00 Orders Only Doctor Unassigned, [place] [facility] 1..114 350.1.13.10 4.2.7.2.686 [id number] [facility] 2023-06-20 08:15:00 2023-06-20 08:15:00 Outpatient DANYELLE JOHNSON EMILY [facility] [id number] [facility] 2023-06-19 16:00:00 2023-06-19 16:00:00 Outpatient CHRIS ALFONSO LUCAS [facility] [id number] [facility] 2023-06-15 00:00:00 2023-06-15 00:00:00 Telephone Chris Linder S [facility] 1.114 350.1.13.10 4.2.7.2.686 [id number] [facility] 2023-06-05 00:00:00 2023-06-05 00:00:00 Patient Secure Msg Doctor Unassigned, [place] [facility] 1.114 350.1.13.10 4.2.7.2.686 [id number] [facility] 2023-05-22 00:00:00 2023-05-22 00:00:00 Patient Secure Msg Doctor Unassigned, [place] [facility] 1.114 350.1.13.10 4.2.7.2.686 [id number] [facility] 2023-05-21 00:00:00 2023-05-21 00:00:00 Telephone Prudence Flores [facility] 1.84.114 350.1.13.10 4.2.7.2.686 [id number] [facility] 2023-05-15 00:00:00 2023-05-15 00:00:00 Telephone Prudence Flores [facility] 1.84114 350.1.13.10 4.2.7.2.686 [id number] [facility] 2023-05-04 12:04:03 2023-05-04 23:59:00 Outpatient R PRUDENCE FLORES [facility] [id number] [facility] 2023-05-04 12:04:03 2023-05-04 23:59:00 Hospital Encounter Elsy Floresine [place] [facility] 1..114 350.1.13.10 4.2.7.2.686 [id number] [facility] 2023-05-03 10:00:00 2023-05-03 10:35:50 Outpatient R PRUDENCE FLORES [facility] [id number] [facility] 2023-05-03 10:00:00 2023-05-03 10:35:50 Office Visit Prudence Flores [facility] 1.84.114 350.1.13.10 4.2.7.2.686 [id number] [facility] 2023-05-02 00:00:00 2023-05-02 00:00:00 Telephone Chris Linder [facility] 1.2.840.114 350.1.13.10 4.2.7.2.686 [id number] [facility] 2023-04-02 11:40:20 2023-04-02 11:40:20 Outpatient SFA [facility] 0821 Octavio Lan 2023-04-02 00:00:00 2023-04-02 00:00:00 Outpatient MCKENZIE BARAHONA [facility] [id number] [facility] 2023-03-30 00:00:00 2023-03-30 00:00:00 Outpatient [id number] Epic 2023-03-27 00:00:00 2023-03-27 00:00:00 Patient Secure Msg Doctor Unassigned, [place] [facility] 1.840.114 350.1.13.10 4.2.7.2.686 [id number] [facility] 2023-03-20 00:00:00 2023-03-20 00:00:00 Telephone Chris Linder [facility] 1..114 350.1.13.10 4.2.7.2.686 [id number] [facility] 2023-03-19 14:15:00 2023-03-19 14:30:00 Terrazzo Roller Visit Pob, Adc Lab Main Chris Linder [facility] 1.0.114 350.1.13.10 4.2.7.2.686 [id number] [facility] 2023-03-19 14:15:00 2023-03-19 14:15:00 Outpatient CHRIS ALFONSO LUCAS [facility] [id number] [facility] 2023-03-01 00:00:00 2023-03-01 00:00:00 Outpatient MCKENZIE BARAHONA [facility] [id number] [facility] 2023-02-16 16:00:00 2023-02-16 16:30:00 Office Visit Chris Linder [facility] 1.2.840.114 350.1.13.10 4.2.7.2.686 [id number] [facility] 2023-02-16 16:00:00 2023-02-16 16:00:00 Outpatient R CHRIS LINDER LUCAS [facility] [id number] [facility] 2023-02-16 00:00:00 2023-02-16 00:00:00 Refill Chris Linder [facility] 1.2840.114 350.1.13.10 4.2.7.2.686 [id number] [facility] 2023-02-15 00:00:00 2023-02-15 00:00:00 Outpatient [id number] [place] [id number] [facility] 2023-02-07 00:00:00 2023-02-07 00:00:00 [facility].114 350.1.13.10 4.2.7.2.686 [id number] [id number] [facility] 2023-02-02 00:00:00 2023-02-02 00:00:00 Refill Kailash [facility] 1.2840.114 350.1.13.10 4.2.7.2.686 [id number] [id number] [facility] 2023-01-17 00:00:00 2023-01-17 00:00:00 Refill Kailash [facility] 1.2.840.114 350.1.13.10 4.2.7.2.686 [id number] [facility] 2023-01-11 05:41:04 2023-01-11 23:59:00 Hospital Encounter Behrns, Mckenzie L [facility] 1.840.114 350.1.13.10 4.2.7.2.686 [id number] [facility] 2022-10-31 13:30:00 2022-10-31 13:30:00 Outpatient R CHRIS LINDER LUCAS [facility] [id number] [facility] 2022-08-09 00:00:00 2022-08-09 00:00:00 Patient Secure Msg Doctor Unassigned, [place] [facility] 1.840.114 350.1.13.10 4.2.7.2.686 [id number] [facility] 2022-07-19 00:00:00 2022-07-19 00:00:00 Telephone Danyelle Montalvo [facility] 1..114 350.1.13.10 4.2.7.2.686 [id number] [facility] 2022-07-17 00:00:00 2022-07-17 00:00:00 Telephone Danyelle Montalvo [facility] 1..114 350.1.13.10 4.2.7.2.686 [id number] [facility] 2022-06-26 14:00:00 2022-06-26 14:00:00 Outpatient R MCKINLEY MONTERO [facility] [id number] [facility] 2022-06-26 14:00:00 2022-06-26 14:00:00 Outpatient R [facility] [id number] [facility] 2022-06-22 00:00:00 2022-06-22 00:00:00 Patient Secure Msg Doctor Unassigned, [place] [facility] 1.840.114 350.1.13.10 4.2.7.2.686 [id number] [facility] 2022-06-21 00:00:00 2022-06-21 00:00:00 Patient Secure Msg Doctor Unassigned, [place] [facility] 1.20.114 350.1.13.10 4.2.7.2.686 [id number] [id number] [facility] 2022-06-20 11:45:00 2022-06-20 12:00:00 Terrazzo Roller Visit [facility] Danyelle Montalvo [facility] 1..114 350.1.13.10 4.2.7.2.686 [id number] [facility] 2022-06-20 11:45:00 2022-06-20 11:45:00 Outpatient R DANYELLE MONTALVO EMILY [facility] [id number] [facility] 2022-06-20 09:30:00 2022-06-20 10:10:31 Office Visit Danyelle Montalvo [facility] 1..114 350.1.13.10 4.2.7.2.686 [id number] [facility] 2022-06-20 00:00:00 2022-06-20 00:00:00 Orders Only Doctor Unassigned, [place] [facility] 1.0.114 350.1.13.10 4.2.7.2.686 [id number] [facility] 2022-06-12 00:00:00 2022-06-12 00:00:00 Patient Secure Msg Doctor Unassigned, [place] [facility] 1.20.114 350.1.13.10 4.2.7.2.686 [id number] [id number] [facility] 2022-05-26 00:00:00 2022-05-26 00:00:00 Telephone Sharon Steiner [facility] 1.840.114 350.1.13.10 4.2.7.2.686 [id number] [facility] 2022-05-15 00:00:00 2022-05-15 00:00:00 Outpatient CHRIS ALFONSO LUCAS [facility] [id number] [facility] 2022-05-09 14:30:00 2022-05-09 14:30:00 Outpatient Mia LOPEZYD ESTEVAN [facility] [id number] [facility] 2022-05-09 00:00:00 2022-05-09 00:00:00 Letter (Out) Thierno Wade [facility] 1.2840.114 350.1.13.10 4.2.7.2.686 [id number] [facility] 2022-05-05 00:00:00 2022-05-05 00:00:00 Letter (Out) Thierno Wade [facility] 1.2840.114 350.1.13.10 4.2.7.2.686 [id number] [facility] 2022-05-03 00:00:00 2022-05-03 00:00:00 Telephone Chris Linder [facility] 1.2840.114 350.1.13.10 4.2.7.2.686 [id number] 089 [id number] [facility] 2022-05-02 16:00:00 2022-05-02 16:30:00 Office Visit Chris Linder [facility] 1.2840.114 350.1.13.10 4.2.7.2.686 [id number] [facility] 2022-05-02 16:00:00 2022-05-02 16:00:00 Outpatient CHRIS ALFONSO LUCAS [facility] [id number] [facility] 2022-04-24 09:00:00 2022-04-24 09:00:00 Outpatient ESTEVAN DURBIN [facility] [id number] [facility] 2022-04-21 00:00:00 2022-04-21 00:00:00 Letter (Out) Theresa Hays [facility] 1..840.114 350.1.13.10 4.2.7.2.686 [id number] [facility] 2022-04-20 11:00:00 2022-04-20 11:00:00 Outpatient DARIA LEE [facility] [id number] [facility] 2022-04-18 14:30:00 2022-04-18 14:30:00 Outpatient CHRIS ALFONSO [facility] [id number] [facility] 2022-04-07 10:10:00 2022-04-07 10:10:00 Outpatient ELENA TINOCO KENDALL [facility] [id number] [facility] 2022-04-04 13:00:00 2022-04-04 13:00:00 Outpatient CHRIS ALFONSO [facility] [id number] [facility] 2022-03-29 08:20:00 2022-03-29 08:20:00 Outpatient RENNY SAUER [facility] [id number] [facility] 2022-03-06 10:30:00 2022-03-06 10:30:00 Outpatient ESTEVAN DURBIN [facility] [id number] [facility] 2022-01-25 00:00:00 2022-01-25 00:00:00 Chris Carranza [facility] ..840.114 350.1.13.10 4.2.7.2.686 [id number] [facility] 2022-01-23 00:00:00 2022-01-23 00:00:00 Refill Kailash [facility] 1.2.840.114 350.1.13.10 4.2.7.2.686 [id number] [id number] [facility] 2022-01-15 00:00:00 2022-01-15 00:00:00 Orders Only Doctor Unassigned, [place] [facility] 1.2840.114 350.1.13.10 4.2.7.2.686 [id number] [facility] 2021-12-07 00:00:00 2021-12-07 00:00:00 Telephone Mayra Viveros [facility] 1.2840.114 350.1.13.10 4.2.7.2.686 [id number] [facility] 2021-10-20 00:00:00 2021-10-20 00:00:00 [facility] 1.2840.114 350.1.13.10 4.2.7.2.686 [id number] 089 [id number] [facility] 2021-10-18 16:45:00 2021-10-18 16:45:00 Terrazzo Roller Visit [facility] Kailash [facility] 1.2840.114 350.1.13.10 4.2.7.2.686 [id number] [facility] 2021-10-18 15:30:00 2021-10-18 16:03:04 Office Visit Kailash [facility] 1.2840.114 350.1.13.10 4.2.7.2.686 [id number] [facility] 2021-10-18 15:30:00 2021-10-18 16:03:04 Outpatient CHRIS ALFONSO LUCAS [facility] [id number] [facility] 2021-10-18 16:00:00 2021-10-18 16:00:00 Outpatient CHRIS ALFONSO LUCAS [facility] [id number] [facility] 2021-10-18 11:40:00 2021-10-18 11:40:00 Outpatient KEIKO EVERETT [facility] [id number] [facility] 2021-10-06 00:00:00 2021-10-06 00:00:00 Chris Carranza [facility] 1..840.114 350.1.13.10 4.2.7.2.686 [id number] [facility] 2021-09-22 10:30:00 2021-09-22 10:30:00 [facility] [id number] [facility] 2021-09-22 10:30:00 2021-09-22 10:30:00 Out[facility] [id number] [facility] 2021-09-21 00:00:00 2021-09-21 00:00:00 Orders Only Doctor Unassigned, [place] [facility] 1..840.114 350.1.13.10 4.2.7.2.686 [id number] [facility] 2021-08-22 00:00:00 2021-08-22 00:00:00 [facility] [id number] [facility] 2021-08-22 00:00:00 2021-08-22 00:00:00 Outpatient CHRIS ALFONSO LUCAS [facility] [id number] [facility] 2021-07-12 15:30:00 2021-07-12 15:30:00 Outpatient R [facility] [id number] [facility] 2021-07-12 15:30:00 2021-07-12 15:30:00 Outpatient R [facility] [id number] [facility] 2021-07-01 00:00:00 2021-07-01 00:00:00 Telephone Kailash [facility] 1.2.840.114 350.1.13.10 4.2.7.2.686 [id number] [facility] 2021-06-14 16:09:17 2021-06-14 16:24:17 Terrazzo Roller Visit [facility] Kailash [facility] 1.2.840.114 350.1.13.10 4.2.7.2.686 [id number] [facility] 2021-06-14 16:04:16 2021-06-14 16:14:16 Imm/Inj Visit Vaccine, Gal [facility] Kailash, [facility] 1.2.840.114 350.1.13.10 4.2.7.2.686 [id number] 085 [id number] [facility] 2021-06-14 15:14:56 2021-06-14 15:44:56 Office Visit Kailash, [facility] 1.2.840.114 350.1.13.10 4.2.7.2.686 [id number] 089 [id number] [facility] 2021-06-14 15:30:00 2021-06-14 15:30:00 Outpatient CHRIS ALFONSO LUCAS [facility] [id number] [facility] 2021-06-14 15:30:00 2021-06-14 15:30:00 Outpatient CHRIS ALFONSO LUCAS [facility] [id number] [facility] 2021-05-28 00:00:00 2021-05-28 00:00:00 Refill Chris Linder [facility] 1.2.840.114 350.1.13.10 4.2.7.2.686 [id number] [facility] 2021-05-11 15:15:00 2021-05-11 15:15:00 Outpatient R CORINNE [facility] [id number] [facility] 2021-05-09 14:00:00 2021-05-09 14:00:00 Outpatient R CORINNE, [facility] [id number] [facility] 2021-04-28 00:00:00 2021-04-28 00:00:00 Telephone Chris Linder [facility] 1.2.840.114 350.1.13.10 4.2.7.2.686 [id number] [facility] 2021-04-25 08:45:00 2021-04-25 08:45:00 Outpatient Mia GONZÁLEZ [facility] [id number] [facility] 2021-04-19 00:00:00 2021-04-19 00:00:00 Telephone KailashChris licona 1.2.840.1 21492.1.1 3.104.2.7 .3.368493 .8 [id number] [facility] 2021-04-11 08:45:00 2021-04-11 08:45:00 Outpatient R GONZÁLEZ JERO [facility] [id number] [facility] 2021-03-16 08:45:00 2021-03-16 08:45:00 Outpatient R MORRIS LOPEZ [facility] [id number] [facility] 2021-03-16 00:00:00 2021-03-16 00:00:00 Refill KailashChris 1.2.840.1 34289.1.1 3.104.2.7 .3.519127 .8 [id number] [facility] 2020-12-27 14:30:00 2020-12-27 14:30:00 Outpatient Mia JOHN MORRIS [facility] [id number] [facility] 2020-12-15 15:15:00 2020-12-15 15:15:00 Outpatient Mia HUANG OCTAVIO [facility] [id number] [facility] 2020-12-07 15:07:29 2020-12-07 15:40:28 Terrazzo Roller Visit [facility] 1.2.840.114 350.1.13.10 4.2.7.2.686 [id number] [facility] 2020-12-07 14:03:43 2020-12-07 15:00:48 [facility] [place] 1.2.840.114 350.1.13.10 4.2.7.2.686 [id number] 089 [id number] [facility] 2020-12-07 14:03:43 2020-12-07 15:00:48 [facility] [place] 1.2.840.114 350.1.13.10 4.2.7.2.686 [id number] [id number] 2020-12-07 14:30:00 2020-12-07 14:30:00 Outpatient CHRIS ALFONSO CHRIS [facility] [id number] [facility] 2020-11-23 13:00:00 2020-11-23 13:00:00 Outpatient CHRIS ALFONSO LUCAS [facility] [id number] [facility] 2020-11-12 00:00:00 2020-11-12 00:00:00 Refill Kailash [facility] 1.2.840.114 350.1.13.10 4.2.7.2.686 [id number] [facility] 2020-09-27 13:45:00 2020-09-27 13:45:00 Outpatient Mia LOPEZJAYYVICTORIANO [facility] [id number] [facility] 2020-09-14 00:00:00 2020-09-14 00:00:00 Refjimbo Linder [facility] 1.2840.114 350.1.13.10 4.2.7.2.686 [id number] [facility] 2020-09-13 00:00:00 2020-09-13 00:00[facility] 1.2840.114 350.1.13.10 4.2.7.2.686 [id number] 089 [id number] [facility] 2020-09-07 13:30:00 2020-09-07 13:30:00 Outpatient CHRIS ALFONSO CHRIS [facility] [id number] [facility] 2020-08-26 00:00:00 2020-08-26 00:00:00 Telephone Kailash, [facility] 1.840.114 350.1.13.10 4.2.7.2.686 [id number] [facility] 2020-08-26 00:00:00 2020-08-26 00:00:00 Telephone Kailash [facility] 1.2840.114 350.1.13.10 4.2.7.2.686 [id number] 089 [id number] [facility] 2020-08-19 00:00:00 2020-08-19 00:00:00 Telephone Kailash [facility] 1.2840.114 350.1.13.10 4.2.7.2.686 [id number] 089 [id number] [facility] 2020-08-09 08:00:00 2020-08-09 08:00:00 [facility] [id number] 2020-08-09 08:00:00 2020-08-09 08:00:00 Outpatient R GONZÁLEZ [facility] [id number] [facility] 2020-07-13 15:15:00 2020-07-13 14:49:18 Outpatient R CHRIS LINDER LUCAS [facility] [id number] [facility] 2020-07-13 14:39:02 2020-07-13 14:49:18 Terrazzo Roller Visit [facility] [place] 1..840.114 350.1.13.10 4.2.7.2.686 [id number] [facility] 2020-07-13 13:51:20 2020-07-13 14:21:20 Office Visit Kailash, [facility] 1.840.114 350.1.13.10 4.2.7.2.686 [id number] [facility] 2020-07-13 14:00:00 2020-07-13 14:00:00 Outpatient R CHRIS LINDER LUCAS [facility] [id number] [facility] 2020-07-12 08:00:00 2020-07-12 08:00:00 [facility] [id number] [facility] 2020-07-12 00:00:00 2020-07-12 00:00:00 Orders Only Doctor Unassigned, [place] 1..840.1 17370.1.1 3.104.2.7 .3.524944 .8 [id number] [facility] 2020-07-07 00:00:00 2020-07-07 00:00:00 Travel 1..840.1 63124.1.1 3.104.2.7 .3.353421 .8 1.2.840.114 350.1.13.10 4.2.7.3.698 [id number] [facility] 2020-06-29 15:00:00 2020-06-29 15:00:00 Outpatient CHRIS ALFONSO LUCAS [facility] [id number] [facility] 2020-06-24 00:00:00 2020-06-24 00:00:00 Chris Carranza 1.2.840.1 62649.1.1 3.104.2.7 .3.689302 .8 [id number] [facility] 2020-06-01 13:00:00 2020-06-01 13:00:00 Outpatient CHRIS ALFONSO LUCAS [facility] [id number] [facility] 2020-05-14 09:15:00 2020-05-14 09:15:00 Outpatient ESTEVAN DURBIN [facility] [id number] [facility] 2020-05-06 13:45:00 2020-05-06 13:45:00 Outpatient Mia SUN [facility] [id number] [facility] 2020-03-20 00:00:00 2020-03-20 00:00:00 Chris Carranza [facility] 1.2.840.114 350.1.13.10 4.2.7.2.686 [id number] [facility] 2020-03-08 09:30:00 2020-03-08 09:30:00 Outpatient JERO HUANG [facility] [id number] [facility] 2020-02-24 15:00:00 2020-02-24 15:00:00 Outpatient CHRIS ALFONSO LUCAS [facility] [id number] [facility] 2020-02-24 07:45:48 2020-02-24 08:15:48 Telemedici ne Visit Kailash Chris S [facility] 1..840.114 350.1.13.10 4.2.7.2.686 [id number] [facility] 2020-02-09 09:30:00 2020-02-09 09:30:00 Outpatient R GONZÁLEZJERO [facility] [id number] [facility] 2020-01-26 11:00:00 2020-01-26 11:00:00 Outpatient R SUZANNE BADILLO [facility] [id number] [facility] 2020-01-23 00:00:00 2020-01-23 00:00:00 Telephone Chris Linder [facility] 1..840.114 350.1.13.10 4.2.7.2.686 [id number] [facility] 2019-12-23 15:00:00 2019-12-23 15:00:00 Outpatient R CHRIS LINDER LUCAS [facility] [id number] [facility] 2019-12-15 00:00:00 2019-12-15 00:00:00 Telephone Chris Linder [facility] 1..840.114 350.1.13.10 4.2.7.2.686 [id number] [facility] 2019-11-24 13:00:00 2019-11-24 13:00:00 Outpatient R SUZANNE BADILLO [facility] [id number] [facility] 2019-11-14 13:30:00 2019-11-14 13:30:00 Outpatient R LIOR SALLIE [facility] [id number] [facility] 2019-10-30 00:00:00 2019-10-30 00:00:00 Telephone KailashLuisas Toney 1.2.840.1 42911.1.1 3.104.2.7 .3.174443 .8 [id number] [facility] 2019-10-14 15:00:00 2019-10-14 15:00:00 Outpatient R CHRIS LINDER LUCAS [facility] [id number] [facility] 2019-08-25 00:00:00 2019-08-25 00:00:00 Case Management Cabrera[place]aby 1.840.1 76961.1.1 3.104.2.7 .3.990940 .8 [id number] [facility] 2019-06-30 16:00:00 2019-06-30 16:51:32 Outpatient Mia SUZANNE BADILLO [facility] [id number] [facility] 2019-06-30 00:00:00 2019-06-30 00:00:00 Orders Only Doctor Unassigned, [place] 1.0.1 08522.1.1 3.104.2.7 .3.236709 .8 [id number] [facility] 2019-05-06 00:00:00 2019-05-06 00:00:00 Telephone Mckinley Solis 1.0.1 30460.1.1 3.104.2.7 .3.199687 .8 [id number] [facility] 2019-05-01 08:05:43 2019-05-01 09:14:20 Office Visit Yanelis May Res-po/Kacy [facility], [facility] 1.840.1 65449.1.1 3.104.2.7 .3.113374 .8 [id number] [facility] 2019-05-01 00:00:00 2019-05-01 00:00:00 Orders Only Doctor Unassigned, [place] 1.0.1 36125.1.1 3.104.2.7 .3.193663 .8 [id number] [facility] 2019-04-29 00:00:00 2019-04-29 00:00:00 Telephone Gidley, Best L 1.2.840.1 33037.1.1 3.104.2.7 .3.632726 .8 [id number] [facility] 2019-04-15 10:45:00 2019-04-15 10:45:00 Hospital Encounter Chris Linder 1.2.840.1 12944.1.1 3.104.2.7 .3.903650 .8 [id number] [facility] 2019-04-15 00:00:00 2019-04-15 00:00:00 Outpatient R CHRIS LINDER LUCAS [facility] [id number] [facility] 2019-04-15 00:00:00 2019-04-15 00:00:00 Telephone [place] 1.2.840.1 70238.1.1 3.104.2.7 .3.213631 .8 [id number] [facility] 2019-04-15 00:00:00 2019-04-15 00:00:00 Refill Chris Linder S 1.2.840.1 03647.1.1 3.104.2.7 .3.285359 .8 [id number] [facility] 2019-04-12 00:00:00 2019-04-12 00:00:00 Refill Chris Linder S 1.2.840.1 59754.1.1 3.104.2.7 .3.809829 .8 [id number] [facility] 2019-03-28 00:00:00 2019-03-28 00:00:00 Telephone Best Morelos [facility] 1.2.840.114 350.1.13.10 4.2.7.2.686 [id number] 089 [id number] [facility] 2019-01-13 00:00:00 2019-01-13 23:59:00 Outpatient THERESA DACOSTA [facility] [id number] [facility] Results Test Description Test Time Test Comments Results Result Co mments Source CULTURE, URINE 2023-04-05 11:33:03 SPECIMEN NUMBER: [id number] CULTURE, URINE SPECIMEN NUMBER: [id number] SPECIMEN COMMENT: URINE SOURCE: URINE REPORT STATUS: [...] TESTING PERFORMED AT [facility] [address] [place] [address] WORKERS' COMPENSATION CLAIMS EXAMINER: ROBBY YUNG M.D. CLIA NUMBER [id number] [facility] [place]. [id number] Octavio Harvey Riky Notes Date/Time Note Provider Source 2024-11-26 11:33:33 Ermelinda Talbot is a 49 year old female PT calling for refills of the following: ALBUTEROL 90 mcg/actuation inhaler ARIPIPRAZOLE 10 mg tablet gabapentin 300 mg capsule TRAMADOL 50 mg tablet SERTraline 100 mg tablet traZODone 50 mg tablet Also asking for a round of Antibiotics [facility]/pharmacy #[id number] [address] [facility] 2024-06-23 08:19:02 Pt has the soonest available appt with provider and Dr. Linder is only an afternoon clinic. [employer] Oseas Marcus [facility] Octavio Miranda [facility]2024-11-07 17:12:04 Ermelinda Talbot is a 49 year old female Patient is calling to schedule appt First available is for 07/22/24 I also placed om high priority waiting patient is needing a sooner appt Patient states she prefers morning appt Please advise [phone] (home) [facility]/pharmacy #[id number] AT [facility] RACT CONSULTANT Danica CurrieProMedica Flower HospitalSxtzsb3370-10-50 10:55:43 Called pt and lvm stating to call clinic back when ready to reschedule. 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 Please advise RACT CONSULTANT Steph LuUniversity Hospitals Geneva Medical CenterHsflpe2490-72-57 14:21:06 Received 05/15/24 refill request for: Medication: Requested Prescriptions Pending Prescriptions Disp Refills xluuoip-pvi-rpzhx-tenof ALAFEN (GENVOYA) [phone] mg per tablet 90 tablet 1 Sig: Take 1 tablet by mouth every morning. Please call [phone] to schedule a follow up appointment. Thank you Last filled: 12/12/23 Follow up scheduled for : 06/10/24 Last office visit: 02/16/23 Refilled approval sent to: Pharmacy: [facility]/pharmacy #[id number] - [place], [place] - [address] [address] Refilled per ID Guidelines [facility] [id number] 13:07:50 Ermelinda Talbot is a 48 year old female Pt calling asking for a refill iqfreme-isw-iggki-tenof ALAFEN (GENVOYA) [phone] mg per tablet She is scheduled to see Dr. Linder on Jun 10 Pt has a cough, asking for cough medication [facility]/pharmacy #[id number] - [place], [place] - [address] Rena CotterUniversity Hospitals Geneva Medical [id number] 16:26:05 Sent patient a [employer] message. Joie Butcher RNUniversity Hospitals Geneva Medical [id number] 14:18:48 Thank you, Dr. Linder. I tried reaching patient, no answer. Left message for patient to call me back. [facility] CenterIcilsa3525 13:52:01 I have not seen the patient [...] mental health provider for further refills though. [place] [id number] 13:47:44 Sorry, I am unable to refill. [...] if the medication is still even indicated. [place] [id number] 13:26:35 Please see patients pharmacy requesting a quantity change from 30 days to 90 days, and advise, thank you. [facility] Joie Hennessy [facility]2024-08-15 08:47:31 Dr. Linder, Please advise on refill request. Thank you REFILL Provider: Dr. Linder Patient's phone number: [phone] (home) Pharmacy: [facility] Medication: Tramadol Strength: 50 mg Directions: take 1 tablet po q 8 hours prn pain Quantity: #90 last written 01/22/24 Last filled: 01/28/24 for #90 Last office visit: 02/16/23 Next office visit: 04/01/24 [place] [id number] 08:33:02 Ermelinda Talbot is a 48 year old female Pt is requesting refill for TRAMADOL 50 mg tablet,pt scheduled 04-01-24 Thank you Vadim HaleUniversity Hospitals Geneva Medical CenterWzyljr0011-09-93 08:53:46 Pt needs dc for refills Julian Reece [facility] CenterBegosr7874-65-70 14:39:59 Pt needs dc for refils Julian Reece [facility] CenterBykmlm1819-15-72 09:33:37 REFILL (Requires review before approval) Provider: Chris Linder MD Patient's phone number: [phone] (home) [facility] [place] [address] Medication: traMADoL (ULTRAM) Strength: 50 mg tablet Directions: TAKE 1 TABLET BY MOUTH EVERY 8 HOURS NEEDED FOR PAIN INDICATIONS: CHRONIC PAIN Quantity: 90 Tablets with ZERO Refills Last filled: 12/26/2023 Last office visit: 02/16/2023 Next scheduled visit: No future visits are scheduled. Joie Hennessy [facility]2024-05-15 15:29:13 REFILL (Requires review before approval) Provider: Chris Linder MD Patient's phone number: [phone] (home) [facility] [place] [address] Medication: traMADoL (ULTRAM) Strength: 50 mg tablet Directions: TAKE 1 TABLET BY MOUTH EVERY 8 HOURS NEEDED FOR PAIN INDICATIONS: CHRONIC PAIN Quantity: 90 Tablets with 2 Refills Last filled: Unknown Last office visit: 02/16/2023 Next scheduled visit: No future ID visits are scheduled. Joie Hennessy [facility]2024-05-01 10:36:19 REFILL Provider: Dr. Linder Patient's phone number: [phone] (home) Pharmacy: [address] Medication: Genvoya Strength: [phone] mg Directions: take 1 tab po daily Quantity: #30 with 5 refills last written 02/16/23 Last filled: unknown Last office visit: 02/16/23 Next office visit: not scheduled. Reminder sent to patient to call office to schedule a follow up appointment. Refilled per ID protocol guidelines to pharmacy above. Joie Butcher [facility] ClevelandJffotp5373-95-35 11:51:44 Recent Visits Date Type Provider Dept 05/03/23 Office Visit Prudence Flores MD [facility] 06/20/22 Office Visit Danyelle Montalvo, [facility] Showing recent visits within past 540 days with a meds authorizing provider and meeting all other requirements Future Appointments Date Type Provider Dept 11/30/23 Appointment Prudence Flores MD [facility] Showing future appointments within next 150 days with a meds authorizing provider and meeting all other requirements Last refill was BENZONATATE 100 mg capsule 60 capsule 0 10/16/2023 -- No Sig: TAKE 1 CAPSULE BY MOUTH EVERY 6 HOURS NEEDED FOR COUGH. Sent to pharmacy as: benzonatate 100 mg capsule (TESSALON PERLES) Class: eRX Katrina Rosa MAUniversity Hospitals Geneva Medical CenterKfeigy0908-65-17 13:07:42 Images from the original note were [...] Flores MD Last refill: 09/21/2023 Rx #: [id number] Provider Review Required Vsdklf8010/15/2023 11:25 AM Protocol Details This refill cannot be delegated Valid encounter within last 12 months To be filled at: [facility]/pharmacy #[id number] - [place], [place] - [facility] Recent Visits Date Type Provider Dept 05/03/23 Office Visit Prudence Flores MD [facility] 06/20/22 Office Visit Danyelle Montalvo, [facility] Showing recent visits within past 540 days with a meds authorizing provider and meeting all other requirements Future Appointments Date Type Provider Dept 11/01/23 Appointment Prudence Flores MD [facility] Showing future appointments within next 150 days with a meds authorizing provider and meeting all other requirements Joy [facility] - [id number] 14:02:56 Images from the original note were [...] Flores MD Last refill: 05/03/2023 Rx #: [id number] Provider Review Required Rxtcew9809/20/2023 12:04 PM Protocol Details This refill cannot be delegated Valid encounter within last 12 months To be filled at: [facility]/pharmacy #[address] [place] [address] Recent Visits Date Type Provider Dept 05/03/23 Office Visit Prudence Flores MD [facility] 06/20/22 Office Visit RegantaylerMichelleDanyelle Terry, [facility] Showing recent visits within past 540 days with a meds authorizing provider and meeting all other requirements Future Appointments Date Type Provider Dept 11/01/23 Appointment Prudence Flores MD [facility] Showing future appointments within next 150 days with a meds authorizing provider and meeting all other requirements RACT CONSULTANT Trista Pierre [facility] CenterFxlbjk6423-16-04 13:42:22 [facility] website reviewed. No discrepancies in prescribing noted. ERx sent. [facility]2024-02-08 10:03:27 REFILL (Requires approval) Provider: Chris Linder MD Patient's phone number: [phone] (home) Pharmacy: [facility]/pharmacy [address] [place] [address] Medication: traMADoL (ULTRAM) Strength: 50 mg tablet Directions: TAKE 1 TABLET BY MOUTH EVERY 8 HOURS NEEDED FOR PAIN Indications: chronic pain Quantity: 90 Tablets with 2 Refills Last filled: Unknown Last office visit: 02/16/2023 Next scheduled visit: No future ID visits are scheduled. Hennessy [facility]2024-01-19 15:56:45 Patient requesting for MRI report be sent to [facility] Pain management dept and information was faxed to [phone] on 08/31/2023. [facility]2024-01-19 11:22:52 Ermelinda Talbot is a 48 year old female Pt is calling in reference to [facility] pain management wanting to more information about her Mri results states [facility] needing more information regarding the results Please advise Thank you [facility] Kelvin CampaUniversity Hospitals Geneva Medical CenterYtvlph8232-53-07 09:18:[address] Linder's clinic folder. Joie Butcher RNUniversity Hospitals Geneva Medical CenterFfybfh0916-19-85 15:00:31 Ermelinda Talbot is a 47 year old female patient calling needs status letter and blood work sent to her dental provider: Taymichelle [address] [place] [address] @ fax # [phone] Has 9:00AM appointment 03/21/23 Mckinley CunninghamProMedica Flower HospitalFpjoly2197-30-21 14:15:00 Images from the original note were not included. Venipuncture collection performed by clean technique on the left wrist. Total of 1 attempts were made. Slight pressure and a bandage/dressing were applied to the site(s). The patient experienced no complications. The following specimens were processed according to instructions and sent to [facility] laboratories per lab order on 03/19/2023: LT BLUE SST 2 RED LAV 2 PPT 1 DK GREEN (LiHep) 2 DK GREEN ([facility]) CORNELL DK BLUE (K2) DK BLUE (S) ACD Blood Culture NIPT/NTD [facility] CenterJsjyhz2044-37-60 14:15:00 Pt was not fasting for blood draw will come back for Lipid Panel. [facility]
[2025-01-03] MEDS ORDERED: NA CHLORIDE 0.9% 1,000 ML ONE (11:57)
--- NOTE | 2025-01-03 12:39 | RAD REPORT ---
Extremity Venous Uni Ltd CLINICAL INDICATION: Female, 49 years old.Swelling;Pain TECHNIQUE: Complete duplex sonography of the lower extremity veins was performed of the affected limb . The examination included compression for vein patency, color Doppler imaging and flow augmentation in response to distal compression of the distal external iliac, common femoral, femoral, popliteal, peroneal, tibial and great saphenous veins. [id number]. COMPARISON: No prior exams FINDINGS: Duplex sonography imaging demonstrates all deep veins examined to be fully compressible with spontane ous, phasic and augmented flow in the affected limb. IMPRESSION: No evidence of deep venous thrombosis in the left lower extremity.
--- NOTE | 2025-01-03 12:47 | RAD REPORT ---
EXAMINATION: Tib Fib Left VIEWS: Two views CLINICAL INDICATION: Female, 49 years old. PAIN COMPARISON: No prior exam. IMPRESSION: No acute fracture. No acute soft tissue abnormality. No radiopaque foreign body.
--- NOTE | 2025-01-03 12:48 | RAD REPORT ---
EXAM: Foot Left 3 View HISTORY: Pain;Swelling COMPARISON: None FINDINGS: Bones: No acute fracture identified. Alignment:No significant malalignment. Degenerative changes:None significant. Other: n/a IMPRESSION: No acute osseous abnormality.
[2025-01-03 13:16] LABS: Absolute Lymphocytes (CBC) 2.1 K/uL (0.7-4.9); Absolute Monocytes 0.4 K/uL (0.1-1.3); Absolute Neutrophil 4.2 K/uL (1.8-8.0); Basophils % 0.5 % (0-1.3); Eosinophils % 0.2 % (0-4.4); Hemoglobin 10.7 g/dL (12.0-15.0); Lymphocytes % 31.6 % (15.3-44.8); MCH 27.1 pg (27.0-35.0); MCHC 33.3 g/dL (32.0-36.0); MCV 81.2 fL (80-100); MPV 7.7 fL (7.6-11.3); Monocytes % 5.9 % (3.3-12.3); Neutrophils % 61.8 % (41.7-73.7); Nucleated Red Blood Cells % 0.1 % (0-0); Platelets 214 thou/uL (152-406); RBC Red Blood Cell Count 3.94 M/uL (3.86-4.86); Red Cell Distribution Width 14.8 % (12.1-15.2)
[2025-01-03 13:35] LABS: Albumin 2.6 g/dL (3.4-5.0); Albumin/Globulin Ratio 0.5 (1.1-1.8); Anion Gap 8.4 mEq/L (5.0-15.0); Bilirubin Total 0.3 mg/dL (0.2-1.0); Globulin 5.3 g/dL (2.3-3.5); Potassium 3.4 mEq/L (3.5-5.1); Protein, Total 7.9 g/dL (6.4-8.2)
--- NOTE | 2025-01-03 14:50 | ER ---
Nurse's Notes [facility] Name: Tianna Costello Age: 49 yrs Sex: Female : 1975 Arrival Date: 01/03/2025 Time: 11:45 Bed 18 Private MD: Diagnosis: Pain in left leg Presentation: 01/03 11:57 Chief complaint: Patient states: was on a scooter at [facility], it was loaded with cases of iw water, it fell over on her left leg , pain and swelling X 1 week. Coronavirus screen: At this time, the client does not indicate any symptoms associated with coronavirus-19. Ebola Screen: No symptoms or risks identified at this time. Initial Sepsis Screen: Does the patient meet any 2 criteria? No. Patient's initial sepsis screen is negative. Does the patient have a suspected source of infection? No. Patient's initial sepsis screen is negative. Risk Assessment: Do you want to hurt yourself or someone else? Patient reports no desire to harm self or others. Onset of symptoms was December 27, 2024. 11:57 Method Of Arrival: Wheelchair 11:57 Acuity: DAVID 3 iw Historical: - Allergies: 11:58 PENICILLINS; iw - PMHx: 11:58 Asthma; Anxiety; HIV positive; iw - PSHx: 11:58 section; iw - Immunization history:: Adult Immunizations up to date. - Infectious Disease History:: Denies. - Social history:: Smoking status: Patient reports the use of cigarette tobacco products, denies chronic smoking, but will smoke occasionally. Screenin:21 [facility] ED Fall Risk Assessment (Adult) History of falling in the last 3 months, mb9 including since admission No falls in past 3 months (0 pts) Confusion or Disorientation No (0 pts) Intoxicated or Sedated No (0 pts) Impaired Gait No (0 pts) Mobility Assist Device Used No (0 pt) Altered Elimination No (0 pt) Score/Fall Risk Level 0 - 2 = Low Risk Oriented to surroundings, Maintained a safe environment, Educated pt \T\ family on fall prevention, incl call for assistance when getting out of bed. Abuse screen: Denies threats or abuse. Nutritional screening: No deficits noted. Tuberculosis screening: No symptoms or risk factors identified. Assessment: 12:16 General: Appears in no apparent distress. Behavior is calm, cooperative. Pain: mb9 Complains of pain in left foot and left leg Quality of pain is described as aching. Neuro: Corcoran Agitation-Sedation Scale (RASS): 0 - Alert and Calm Level of Consciousness is awake, alert, obeys commands, Oriented to person, place, time, situation, Appropriate for age. Cardiovascular: Patient's skin is warm and dry. Pulses are 1+ in left dorsalis pedis artery Edema is 1+ to left toes. Respiratory: Airway is patent Respiratory effort is even, unlabored, Respiratory pattern is regular, symmetrical, Breath sounds are clear bilaterally. GI: No deficits noted. : No deficits noted. EENT: No deficits noted. Musculoskeletal: Range of motion: intact in all extremities, Swelling present in left foot. 13:37 Reassessment: No changes from previously documented assessment. Patient and/or family mb9 updated on plan of care and expected duration. Pain level reassessed. Patient is alert, oriented x 3, equal unlabored respirations, skin warm/dry/pink. 15:04 Reassessment: No changes from previously documented assessment. Patient and/or family mb9 updated on plan of care and expected duration. Pain level reassessed. Patient is alert, oriented x 3, equal unlabored respirations, skin warm/dry/pink. Vital Signs: 11:57 BP 139 / 78; Pulse 92; Resp 18; Temp 98.7; Pulse Ox 100% on R/A; Weight 75.75 kg; iw Height 5 ft. 7 in. ; Pain 10/10; 15:04 BP 124 / 76; Pulse 88; Resp 16; Pulse Ox 100% on R/A; mb9 11:57 Body Mass Index 26.16 (75.75 kg, 170.18 cm) iw 11:57 Pain Scale: Adult iw ED Course: 11:48 Patient arrived in ED. im 11:49 Derick Randolph FNP-C [facility]. [facility] 11:49 Robert Anderson MD is Attending Physician. dr5 11:58 Triage completed. iw 12:01 Danica Bonilla RN is Primary Nurse. mb9 12:16 Arm band placed on. mb9 12:21 Placed in gown. Bed in low position. Call light in reach. Side rails up X 1. Provided mb9 Education on: press call light if needing anything. Client placed on continuous cardiac and pulse oximetry monitoring. NIBP monitoring applied. 12:22 No provider procedures requiring assistance completed. mb9 12:26 Inserted saline lock: 22 gauge in left hand, using aseptic technique. Flushed with 10 mb9 mL NS. 12:33 Extremity Venous Uni Ltd US In Process Unspecified. EDMS 12:43 Tib Fib Left XRAY In Process Unspecified. EDMS 12:43 Foot Left 3 View XRAY In Process Unspecified. EDMS 15:04 IV discontinued, intact, bleeding controlled, No redness/swelling at site. Pressure mb9 dressing applied. Administered Medications: 12:33 Drug: NS 0.9% IV 1000 ml IV at 1000 ml once; to be given as a bolus over 60 minutes mb9 Route: IV; Rate: 1000 ml; Site: left hand; 15:05 Follow up: Response: No adverse reaction; IV Status: Completed infusion mb9 Medication: 12:22 VIS not applicable for this client. mb9 Outcome: 14:50 Discharge ordered by . loretta 15:05 Discharged to home ambulatory, mb9 15:05 Condition: stable 15:05 Discharge instructions given to patient, Instructed on discharge instructions, follow up and referral plans. Demonstrated understanding of instructions, follow-up care, 15:05 Patient left the ED. mb9 Signatures: Dispatcher [employer] Li Chaidez RN RN iw Wilkerson, Mary Beth, RN RN huan9 Anya Damon Dustin, EXTRUDER OPERATOR VERTICAL-C EXTRUDER OPERATOR VERTICAL-Cdr5
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
[2025-01-03 15:20] VITALS: O2SAT 100
[2025-01-03 15:23] VITALS: BP 139/78; TEMP 98.7
== END 2025-01-03 15:05 | disposition home or self-care (01) ==
LOC: ER 11:45
DX: M79.605 Pain in left leg (principal); F17.210 Nicotine dependence, cigarettes, uncomplicated; Z21 Asymptomatic human immunodeficiency virus [HIV] infection status
CPT/HCPCS: 96361; 87040 ×2; 85025; 36415; 87205; 87184; 83605; 80053; 73630; 73590; 93971; 96360; 99284; J7030